=== PATIENT | male | born 1955 | race Caucasian/White ===

== ENCOUNTER 2023-03-31 11:08 | Emergency (ER) | payer MEDICARE, OTHER, SELFPAY ==
[2023-03-31 11:14] VITALS: BP 134/82; PULSE 68; RESP 16; TEMP 36.7; O2SAT 99; BMI 33.7
--- NOTE | 2023-03-31 11:40 | XR_ITS ---
The [address] [address] Patient Name: NORY DSOUZA MRN: [id number] date: 1955 Sex: M Assigned Patient Location: ER Current Patient Location: ED.MAIN Accession/Order Number: [id number] Exam Date: 03/31/2023 11:37 Report Date: 03/31/2023 12:28 At the request of: JORY DOWLING Procedure: XR hand RT min 3V PROCEDURE: XR hand RT min 3V COMPARISON: None. HISTORY: pain and swelling FINDINGS: BONES:No acute fracture or dislocation. Moderate degenerative changes with joint space narrowing and subchondral lytic changes most significant at the first and third metacarpal phalangeal joints. 5 mm lateral subluxation of the fourth middle phalanx. SOFT TISSUES:Diffuse soft tissue swelling most significant along the dorsal hand EFFUSION:None visible. OTHER: Negative. 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
--- NOTE | 2023-03-31 12:38 | ED_ITS ---
HPI - Extremity Problem General Chief complaint: Extremity Problem, Nontraumatic Stated complaint: RIGHT HAND PAIN Time Seen by Provider: 03/31/23 12:06 Source: patient Mode of arrival: walk-in Limitations: no limitations History of Present Illness HPI Narrative: Presenting with a right hand pain the patient is right-handed and he is using cane all the time he has been dealing with this hand pain for a while there was no history of fall or trauma Related Data Previous Rx's Medication Instructions Recorded famotidine 20 mg tablet (Pepcid) 20 mg PO BID #10 tabs 03/31/23 meloxicam 7.5 mg tablet 7.5 mg PO DAILY PRN pain #5 tabs 03/31/23 Allergies Allergy/AdvReac Type Severity Reaction Status Date / Time No Known Drug Allergies Allergy Verified 03/31/23 11:19 Review of Systems ROS Status of ROS 10 or more systems reviewed and unremarkable except as noted in history and below PFSH PFS Social History Smoking status: Current every day smoker Exam Narrative Exam Narrative: Nurses notes and vital signs reviewed and patient is not hypoxic. General: Well-appearing and in no apparent distress. Skin: Warm, dry, no pallor noted. No rash. Head: Normocephalic, atraumatic. Neck: Supple, non-tender. Eye: Pupils are equal, round and EOMI. No scleral icterus. Ears, Nose, Mouth, and Throat: TM are clear, no nasal mucosal hypertrophy. Oral mucosa is moist, no posterior oropharynx erythema, uvula is mid-line Cardiovascular: Regular Rate and Rhythm without murmur, gallop or rub. Respiratory: No accessory muscle use or respiratory distress. Lungs are clear to auscultation, no wheezing, rales or rhonchi Chest Wall: no tenderness Back: No midline thoracic or lumbar vertebral tenderness. No CVA tenderness Musculoskeletal: normal ROM, no calf or popliteal tenderness, the patient have right hand edema mostly in the fourth fifth metacarpals there is no open wounds and there is no signs of redness hotness or any signs of infection and no vascular injury GI: Abdomen is soft, non-distended. Normal bowel sounds. No masses appreciated. No tenderness to palpation. No rebound, guarding, or rigidity noted. Neurological: A&O x4. No cranial nerve dysfunction observed. No truncal at axia. Moves all extremities. Sensation intact. Psychiatric: Cooperative and interactive. Normal mood and affect. Constitutional Vital Signs, click to edit/add: Last Vital Signs Temp 98.1 F 03/31/23 11:14 Pulse 68 03/31/23 11:14 Resp 16 03/31/23 11:14 BP 134/82 03/31/23 11:14 Pulse Ox 99 03/31/23 11:14 O2 Del Method Room Air 03/31/23 11:14 Course Vital Signs Vital signs: Vital Signs Temperature 98.1 F 03/31/23 11:14 Pulse Rate 68 03/31/23 11:14 Respiratory Rate 16 03/31/23 11:14 Blood Pressure 134/82 03/31/23 11:14 Pulse Oximetry 99 03/31/23 11:14 Oxygen Delivery Method Room Air 03/31/23 11:14 Temperature 98.1 F 03/31/23 11:14 Pulse Rate 68 03/31/23 11:14 Respiratory Rate 16 03/31/23 11:14 Blood Pressure 134/82 03/31/23 11:14 Pulse Oximetry 99 03/31/23 11:14 Oxygen Delivery Method Room Air 03/31/23 11:14 MDM - Extremity (Nontraumatic) MDM Narrative Medical decision making narrative: X-ray of the patient hand shows a the above-mentioned results of arthritis with some lytic lesions the patient was referred to orthopedic as outpatient Jayesh wrap was applied he was instructed about follow-up and the fact that he would have to rest his hand using the cane with the left hand and also he was started Mobic only for 5 days the patient take Decadron at home chronically due to adrenal insufficiency The patient also was provided with Pepcid to help protection against GERD The patient is to follow up with primary care physician in next 2-3 days or to return to the emergency department should any of the signs or symptoms worsen or new symptoms develop. The patient agrees with the following Diagnosis and Treatment plan and the patient will be discharged home. Discharge Plan Discharge Chief Complaint: Extremity Problem, Nontraumatic Clinical Impression: Arthritis of hand Patient Disposition: Home, Self-Care Time of Disposition Decision: 12:38 Condition: Good Mode of Transportation: Private Vehicle Prescriptions / Home Meds: New meloxicam 7.5 mg tablet 7.5 mg PO DAILY PRN (Reason: pain ) Qty: 5 0RF famotidine [Pepcid] 20 mg tablet 20 mg PO BID Qty: 10 0RF Instructions: Arthritis (ED) Stand Alone Forms: Portal Instructions Referrals: DOUG AMBROSE [Primary Care Provider] - 1 week Jamie Castro MD [Physician] - 1 week Discharge Date/Time: 03/31/23 12:53
== END 2023-03-31 12:53 | disposition home or self-care (01) ==
PROVIDERS: Emergency Provider Emergency Medicine; PCP Family Medicine
DX: M19.041 Primary osteoarthritis, right hand (principal); F17.210 Nicotine dependence, cigarettes, uncomplicated
CPT/HCPCS: 73130; 99283

== ENCOUNTER 2024-05-01 07:50 | Outpatient (OUT) | payer MEDICARE, OTHER, SELFPAY ==
--- OUTSIDE RECORDS SUMMARY | 2024-05-01 08:14 | XMS_ITS | CCD ---
Author Organization [facility] Care Team Providers Care Surgical Services Asst Name Role Phone Doug Arteaga Primary Care Provider [phone] DOUG ARTEAGA Primary Care Physician [phone] Doug Arteaga MD. Primary Care Provider [phone] LIZZIE Manzo, DR DASILVA Attending Unavailable HAY ., DR DASILVA Consulting Unavailable HAY ., DR DASILVA Admitting Unavailable MISC, DR COOPER Primary Care Unavailable MISC, DR COOPER Primary Care Unavailable YOVANI ARTEAGA Attending Unavailable YOVANI ARTEAGA Consulting Unavailable YOVANI ARTEAGA Admitting Unavailable LIZZIE Manzo, DR DASILVA Attending Unavailable LIZZIE ., DR DASILVA Consulting Unavailable LIZZIE ., DR DASILVA Admitting Unavailable MISC, DR COOPER Primary Care Unavailable Grant Vazquez Attending Unavailable Alec Fountain Attending Unavailable Raul Vanessa Admitting Unavailable Raul Vanessa Referring Unavailable Raul Vanessa Attending Unavailable Alec Fountain Attending Unavailable Robson Cartwright Attending Unavailable SIOMARA BAEZA Attending Unavailabl e DOUG ARTEAGA Referring Unavailable SIOMARA BAEZA Referring Unavailabl Doug Oviedo MD Primary Care Provider DOUG ARTEAGA Attending Unavailable OMISESHOFELY BAKERCY L Referring Unavailable VERHOFF, DOUG L Primary Care Unavailable VERHOFF, DOUG L Referring Unavailable VERHOFF, DOUG Blackwood Primary Care Unavailable VERHOFF, DOUG L Primary Care Unavailable VERHOFF, DOUG L Referring Unavailable VERHOFFFELYCY L Attending Unavailable VERHOFF, DOUG L Primary Care Unavailable VERHOFF, DOUG L Referring Unavailable VERHOFF, DOUG L Primary Care Unavailable VERHOFF, DOUG L Referring Unavailable VERHOFF, DOGU L Primary Care Unavailable VERHOFF, DOUG L Referring Unavailable VERHOFF, DOUG L Referring Unavailable VERHOFF, DOUG L Primary Care Unavailable VERHOFF, DOUG L Attending Unavailable VERHOFF, DOUG L Referring Unavailable VERHOFF, DOUG L Primary Care Unavailable VERHOFF, DOUG L Primary Care Unavailable VERHOFF, DOUG L Referring Unavailable VERHOFF, DOUG L Attending Unavailable VERHOFF, DOUG L Attending Unavailable VERHOFF, DOUG L Referring Unavailable VERHOFF, DOUG L Primary Care Unavailable Medications Current Medications Medication Drug Class(es) Dates Sig (Normalized) Sig (Original) amLODIPine 2.5 mg oral tablet (13 sources) Dihydropyridine Calcium Channel Phyllis Start: 08-30-2021 amLODIPine 2.5 mg Tab Refills(s) 0 Start Date: 08/30/21 Status: Ordered Start: 12-11-2020 take 1 tablet by yves th once daily amLODIPine (NORVASC) 2.5 MG tablet take 1 tablet by mouth once daily 30 tablet 11 12/11/2020 Active Start: 12-27-2019 take 1 tablet by yves th once daily amLODIPine (NORVASC) 2.5 MG tablet Take 1 tablet by mouth daily 30 tablet 11 12/27/2019 Active aspirin 81 mg oral tablet (18 sources) Platelet Aggregation Inhibitor, Nonsteroidal Anti-inflammatory Drug Start: 02-20-2010 take 1 tablet by mouth once daily aspirin 81 mg oral tablet = 1 tab(s), Oral, Daily, # 30 tab(s), Refills(s) 0 Start Date: 02/20/10 Status: Ordered take 1 tablet by mouth once kunal y aspirin 81 MG EC tablet Take 81 mg by mouth daily. 0 Active atorvastatin 10 mg oral tablet (9 sources) HMG-CoA Reductase Inhibitor Start: 02-20-2010 atorvastatin (LIPITO R) 10 MG tablet Take by mouth 0 02/20/2010 Active calcium (as citrate)-vitamin D 500 mg-200 intl units oral tablet, chewable (6 sources) Start: 02-20-2010 calcium (as citrate)-vitamin D 500 mg-200 intl units oral tablet, chewable 500MG/400MG, Oral, Daily, Refill(s) 0 Start Date: 02/20/10 Status: Ordered Start: 02-20-2010 calcium (as ci trate)-vitamin D 500 mg-200 intl units oral tablet, chewable 500MG/400MG, Oral, Daily, 0 Start Date: 02/20/10 Status: Ordered cephalexin 500 mg oral capsule (1 source) Cephalosporin Antibacterial Start: 11-27-2022 End: 12-04-2022 take 1 capsule by mouth twice daily Keflex 500 mg Cap 500 mg = 1 cap(s), Oral, BID, X 7 day(s), # 14 cap(s), Refills(s) 0, Pharmacy: [facility] #[id number], 170, cm, 11/27/22 16:29:00 EDT, Height/Length Dosing, 92.4, kg, 11/27/22 16:29:00 EDT, Weight Dosing Start Date: 11/27/22 Stop Date: 12/04/22 Status: Ordered ciprofloxacin 500 mg oral tablet (7 sources) Quinolone Antimicrobial Start: 05-08-2019 take 1 mg by mouth every twelve hours Cipro 500 mg Tab mg tab(s), Oral, q12hr, Refills(s) 0 Start Date: 05/08/19 Status: Ordered Start: 05-02-2019 End: 05-09-2019 take 1 tablet by mouth twice daily ciprofloxacin (CIPRO) 500 MG tablet Take 1 tablet by mouth 2 times daily for 7 days 14 tablet 0 05/02/2019 05/09/2019 Active clotrimazole 10 mg oral lozenge (4 sources) Azole Antifungal take 1 tablet by mouth five times daily clotrimazole (MYCELEX) 10 MG eliseo Take 1 tablet by mouth 5 times daily Active dexamethasone 0.5 mg oral tablet (20 sources) Corticosteroid Start: take 1 tablet by mouth once daily dexAMETHasone (DECADRON) 0.5 MG tablet Indications: Adrenal insufficiency (HCC) Take 1 tablet by mouth daily 90 tablet 1 12/15/2023 Active Start: 09-09-2023 take 1 tablet by yves th once daily dexAMETHasone (DECADRON) 0.5 MG tablet Indications: Adrenal insufficiency (HCC) take 1 tablet by mouth once daily 90 tablet 1 09/09/2023 Active Start: 02-20-2010 take 1 tablet by yves th once daily dexamethasone 0.5 mg oral tablet 0.5 mg = 1 tab(s), Oral, Daily, Refills(s) 0 Start Date: 02/20/10 Status: Ordered 24 hr dilTIAZem hydrochloride 120 mg extended release oral capsule (4 sources) Calcium Channel Phyllis Start: 12-15-2023 take 1 capsule by mouth once daily dilTIAZem (CARDIZEM CD) 120 MG extended release capsule Take 1 capsule by mouth daily 90 capsule 3 12/15/2023 Active Start: 02-07-2023 take 1 capsule by mo uth once daily dilTIAZem (CARDIZEM CD) 120 MG extended release capsule Take 1 capsule by mouth daily 90 capsule 3 02/07/2023 Active furosemide 20 mg oral tablet (3 sources) Loop Diuretic Start: 06-29-2023 take 1 tablet by mouth once daily furosemide (LASIX) 20 MG tablet Take 1 tablet by mouth daily 3 tablet 0 06/29/2023 Active lansoprazole 30 mg delayed release oral capsule (20 sources) Proton Pump Inhibitor Start: 02-20-2010 take 1 capsule by mouth once daily, then take 1 capsule by mouth once daily Prevacid 30 mg Cap-EC = 1 cap(s), Oral, Daily, Take one capsule by mouth every day, # 14 cap(s), Refills(s) 0 Start Date: 02/20/10 Status: Ordered metoprolol tartrate 25 mg oral tablet (20 sources) beta-Adrenergic Phyllis Start: 12-15-2023 take 1 tablet by mouth twice daily metoprolol tartrate (LOPRESSOR) 25 MG tablet Take 1 tablet by mouth 2 times daily 360 tablet 1 12/15/2023 Active Start: 10-12-2023 [facility] metop[facility]ol tartrate (LOPRESSOR) 25 MG tablet Take 1 tablet by mouth 2 times daily 360 tablet 1 10/12/2023 Active Start: 11-27-2022 Metoprolol tar trate 25 mg Tab See Instructions, 2 tabs in the morning and evening and 1 tab in the afternoon, # 20 tab(s), Refills(s) 0, [facility]: [id number], 170, cm, 11/27/22 16:29:00 EDT, Height/Length Dosing, 92.4, kg, 11/27/22 16:29:00 EDT, Weight Dosing Start Date: 11/27/22 Status: Ordered Start: 11-27-2022 End: 11-27-2022 Metoprolol tartrate 25 mg Ta b 25 mg = 1 tab(s), Tab, Oral, STAT, Start date 11/27/22 17:25:00 EDT, 11/27/22 17:25:00 EDT Start Date: 11/27/22 Stop Date: 11/27/22 Status: Completed Start: 05-15-2022 End: 05-16-2022 take 1 tablet by mouth once Metoprolol tartrate 25 mg Tab 25 mg = 1 tab(s), Tab, Oral, Once, Stop date 05/15/22 23:31:00 EST, STAT, Start date 05/15/22 23:31:00 EST, 05/15/22 23:31:00 EST Start Date: 05/15/22 Stop Date: 05/16/22 Status: Completed Start: 05-15-2022 End: 05-15-2022 metoprolol 25 mg ER Tab 25 m g = 1 tab(s), Tab-ER, Oral, STAT, Start date 05/15/22 21:40:00 EST, 05/15/22 21:40:00 EST Start Date: 05/15/22 Stop Date: 05/15/22 Status: Completed Start: 09-01-2021 End: 09-01-2021 Metoprolol tartrate 25 mg Ta b 25 mg = 1 tab(s), Tab, Oral, Start date 09/01/21 14:00:00 EDT, 08/30/21 19:31:00 EDT Start Date: 09/01/21 Stop Date: 09/01/21 Status: Completed Start: 09-01-2021 End: 09-01-2021 take 1 tablet by mouth four times daily Lopressor 25 mg oral tablet 25 mg = 1 tab(s), Oral, QID, # 120 tab(s), Refills(s) 0, Pharmacy: [place] [id number] [address] [facility], 170, cm, 08/30/21 1:31:00 EDT, Height/Length Dosing, 93, kg, 08/30/21 1:31:00 EDT, Weight Dosing Start Date: 09/01/21 Status: Ordered Start: 02-09-2021 take 1 tablet by yves four times daily metoprolol tartrate (LOPRESSOR) 25 MG tablet take 1 tablet by mouth four times a day 360 tablet 1 02/09/2021 Active Start: 02-25-2020 take 1 tablet by yves th four times daily metoprolol tartrate (LOPRESSOR) 25 MG tablet Take 1 tablet by mouth 4 times daily 360 tablet 1 02/25/2020 Active Start: 01-14-2020 metoprolol tar trate (LOPRESSOR) 25 MG tablet Take 2 tablets twice daily 270 tablet 1 01/14/2020 Active Start: 08-24-2019 End: 01-14-2020 take 1 tablet by mouth three times daily metoprolol tartrate (LOPRESSOR) 25 MG tablet take 1 tablet by mouth three times a day 270 tablet 1 08/24/2019 01/14/2020 Discontinued (REORDER) Start: 02-27-2019 take 1 tablet by yves th three times daily metoprolol tartrate (LOPRESSOR) 25 MG tablet take 1 tablet by mouth three times a day 270 tablet 1 02/27/2019 Active Start: 04-30-2016 End: 04-30-2017 take 1 tablet by mouth twice daily metoprolol tartrate (LOPRESSOR) 50 MG tablet Take 1 tablet (50 mg total) by mouth 2 (two) times a day. 180 tablet 3 04/30/2016 04/30/2017 One A Day Men 50 Plus (6 sources) Start: 02-20-2010 take 1 tablet by mouth once daily One A Day Men 50 Plus 1 TAB, Oral, Daily, Refill(s) 0 Start Date: 02/20/10 Status: Ordered Start: 02-20-2010 One A Day Men 50 Plus 1 TAB, Oral, Daily, 0 Start Date: 02/20/10 Status: Ordered pravastatin sodium 40 mg oral tablet (20 sources) HMG-CoA Reductase Inhibitor Start: 12-15-2023 take 1 tablet by mouth once daily pravastatin (PRAVACHOL) 40 MG tablet Take 1 tablet by mouth daily 90 tablet 1 12/15/2023 Active Start: 08-01-2023 take 1 tablet by yves th once daily pravastatin (PRAVACHOL) 40 MG tablet take 1 tablet by mouth once daily 90 tablet 1 08/01/2023 Active Start: 05-17-2016 take 1 tablet by yves th at bedtime pravastatin 40 mg Tab 40 mg = 1 tab(s), Oral, Bedtime, Refills(s) 0 Start Date: 08/30/21 Status: Ordered Prevacid 30 mg Cap-EC (1 source) Start: 02-20-2010 take 1 capsule by mouth once daily, then take 1 capsule by mouth once daily Prevacid 30 mg Cap-EC = 1 cap(s), Oral, Daily, Take one capsule by mouth every day, # 14 cap(s), Refills(s) 0 Start Date: 02/20/10 Status: Ordered triamcinolone acetonide 0.001 mg/mg topical ointment (19 sources) Corticosteroid Start: 02-25-2020 triamcinolone (KENALOG) 0.1 % ointment Apply topically to affected area(s) twice daily until healed/improved. 30 g 0 02/25/2020 Active Start: 06-05-2019 triamcinolone (KENALOG) 0.1 % ointment Apply topically to affected area(s) twice daily until healed/improved. 30 g 0 06/05/2019 Active Start: 06-08-2018 triamcinolone (KENALOG) 0.1 % ointment Apply topically to affected area(s) twice daily until healed/improved. 30 g 0 06/08/2018 Active Completed/Discontinued Medications Medication Drug Class(es) Dates Sig (Normalized) Sig (Original) esomeprazole 40 mg delayed release oral capsule (1 source) Proton Pump Inhibitor Start: 03-24-2015 End: 04-04-2019 esomeprazole (NEXIUM) 40 MG capsule TAKE 1 CAPSULE EVERY MORNING BEFORE BREAKFAST 90 capsule 0 03/24/2015 04/04/2019 Discontinued (LIST CLEANUP) iopamidol (ISOVUE-370) 76 % injection 100 mL (1 source) Start: 06-02-2020 End: 06-02-2020 iopamidol (ISOVUE-370) 76 % injection 100 mL 24 hr isosorbide mononitrate 30 mg extended release oral tablet (4 sources) Nitrate Vasodilator Start: 12-03-2019 End: 01-14-2020 take 1 tablet by mouth once daily isosorbide mononitrate (IMDUR) 30 MG extended release tablet Take 1 tablet by mouth daily 90 tablet 3 12/03/2019 01/14/2020 Discontinued (Therapy completed) Start: 11-19-2019 take 1 tablet by yves once daily isosorbide mononitrate (IMDUR) 30 MG extended release tablet Take 1 tablet by mouth daily 30 tablet 0 11/19/2019 Active technetium sestamibi (CARDIOLITE) injection 10 millicurie (1 source) Start: 05-01-2019 End: 05-01-2019 technetium sestamibi (CARDIOLITE) injection 10 millicurie technetium sestamibi (CARDIOLITE) injection 30 millicurie (1 source) Start: 05-01-2019 End: 05-01-2019 technetium sestamibi (CARDIOLITE) injection 30 millicurie Problems Active Problems Problem Classification Problem Date Documented Date Episodic/Chronic Abdominal hernia (7 sources) Diaphragmatic hernia; Translations: [Diaphragmatic hernia without obstruction or gangrene] Onset: 08-30-2021 Episodic Blindness and vision defects (1 source) Diplopia; Translations: [Diplopia] Episodic Cardiac dysrhythmias (8 sources) Supraventricular tachycardia; Translations: [Supraventricular tachycardia] Onset: 08-31-2021 Chronic Coagulation and hemorrhagic disorders (5 sources) Thrombocytopenic disorder; Translations: [Thrombocytopenia, unspecified] Onset: 08-30-2021 Resolved: 05-02-2023 Chronic Coronary atherosclerosis and other heart disease (2 sources) Coronary arteriosclerosis; Translations: [Atherosclerotic heart disease of [place] coronary artery without angina pectoris] Onset: 09-24-2015 08-01-2021 Chronic Disorders of lipid metabolism (20 sources) Hypercholesterolemia; Translations: [Pure hypercholesterolemia, unspecified] Onset: 04-30-2016 12-07-2016 Chronic Esophageal disorders (20 sources) Gastroesophageal reflux disease without esophagitis; Translations: [Gastro-esophageal reflux disease without esophagitis] Onset: 03-19-2016 03-19-2016 Chronic Essential hypertension (20 sources) Hypertensive disorder; Translations: [Essential hypertension] Onset: 03-19-2013 03-19-2013 Chronic Fluid and electrolyte disorders (8 sources) Hypo-osmolality and or hyponatremia; Translations: [Hypo-osmolality and hyponatremia] Onset: 08-30-2021 Episodic Genitourinary symptoms and ill-defined conditions (6 sources) Post-micturition incontinence 05-08-2019 Chronic Genitourinary symptoms and ill-defined conditions (13 sources) Scalding pain on urination ; Translations: [Increased frequency of urination] 05-08-2019 Episodic Headache; including migraine (1 source) Headache; Translations: [Nonintractable episodic headache, unspecified headache type] Episodic Hyperplasia of prostate (6 sources) Benign prostatic hypertrophy with outflow obstruction 05-03-2019 Chronic Nonspecific chest pain (1 source) Chest pain; Translations: [Chest pain, unspecified] Onset: 05-15-2022 Episodic Other ear and sense organ disorders (3 sources) Unspecified hearing loss, right ear; Translations: [UNSPECIFIED HEARING LOSS RIGHT EAR] Onset: 02-11-2022 Chronic Other endocrine disorders (20 sources) Hypoadrenalism; Translations: [Unspecified adrenocortical insufficiency] Onset: 03-19-2013 03-19-2013 Chronic Other endocrine disorders (7 sources) Congenital adrenal hyperplasia; Translations: [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] Onset: 08-30-2021 Chronic Other lower respiratory disease (1 source) Shortness of breath; Translations: [Shortness of breath] Onset: 03-23-2024 Episodic Other nervous system disorders (1 source) Paresthesia of skin; Translations: [Arm paresthesia, right] Episodic Other non-epithelial cancer of skin (1 source) Squamous cell carcinoma of upper extremity; Translations: [Squamous cell cancer of skin of forearm, left] Chronic Other non-traumatic joint disorders (1 source) Pain in unspecified knee; Translations: [Pain of joint of knee] Onset: 04-21-2023 Episodic Other nutritional; endocrine; and metabolic disorders (1 source) Obesity; Translations: [Obesity, unspecified] Onset: 08-30-2021 Chronic Other skin disorders (6 sources) Actinic keratosis 05-03-2019 Episodic Residual codes; unclassified (1 source) Obstructive sleep apnea syndrome; Translations: [Obstructive sleep apnea (adult) (pediatric)] Onset: 08-30-2021 Chronic Residual codes; unclassified (1 source) Daytime somnolence; Translations: [Other hypersomnia] 10-17-2023 Chronic Residual codes; unclassified (1 source) Sleep apnea; Translations: [Other sleep apnea] 10-17-2023 Chronic Residual codes; unclassified (1 source) Other hypersomnia; Translations: [Other hypersomnia] Onset: 10-17-2023 Chronic Residual codes; unclassified (1 source) Other sleep apnea; Translations: [Other sleep apnea] Onset: 10-17-2023 Chronic Residual codes; unclassified (6 sources) Family history of prostate cancer 05-08-2019 Episodic Residual codes; unclassified (6 sources) H/O: anticoagulant therapy 05-03-2019 Episodic Residual codes; unclassified (1 source) Edema of left lower limb; Translations: [Localized edema] 03-23-2024 Episodic Residual codes; unclassified (1 source) Localized edema; Translations: [Localized edema] Onset: 03-23-2024 Episodic Skin and subcutaneous tissue infections (1 source) Cellulitis of left lower limb; Translations: [Cellulitis of left lower limb] Onset: 03-23-2024 Episodic Substance-related disorders (7 sources) Smoker; Translations: [Nicotine dependence, cigarettes, uncomplicated] Onset: 06-28-2022 05-08-2019 Chronic Urinary tract infections (7 sources) Urinary tract infectious disease; Translations: [Urinary tract infection, site not specified] Onset: 11-27-2022 05-08-2019 Episodic Past or Other Problems Problem Classification Problem Date Documented Da te Episodic/Chronic Cancer of prostate (6 sources) History of malignant neoplasm of prostate Resolved: 05-03-2019 05-03-2019 Episodic Cardiac dysrhythmias (11 sources) Tachycardia; Translations: [Palpitations] Onset: 09-24-2015 Episodic Conditions associated with dizziness or vertigo (4 sources) Dizziness and giddiness; Translations: [DIZZINESS AND GIDDINESS] Onset: 06-26-2022 Episodic Malaise and fatigue (2 sources) Other fatigue; Translations: [Other fatigue] Onset: 06-28-2023 Episodic Other aftercare (1 source) Other residential (current) drug therapy; Translations: [OTH NURSE MIDWIFE/CLINICAL INSTRUCTOR CURRENT DRUG THERAPY] Onset: 06-28-2022 Episodic Other aftercare (1 source) nursing home (current) use of aspirin; Translations: [[facility] CURRENT USE OF ASPIRIN] Onset: 02-13-2022 Episodic Other connective tissue disease (1 source) Other specified soft tissue disorders; Translations: [Other specified soft tissue disorders] Onset: 11-16-2023 Episodic Other connective tissue disease (1 source) Pain in right leg; Translations: [Pain in right leg] Onset: 05-12-2023 Episodic Other ear and sense organ disorders (1 source) Impacted cerumen, bilateral; Translations: [IMPACTED CERUMEN BILATERAL] Onset: 02-13-2022 Episodic Other non-epithelial cancer of skin (5 sources) Squamous cell carcinoma of skin; Translations: [Squamous cell carcinoma of skin, unspecified] Onset: 03-05-2021 03-05-2021 Episodic Other screening for suspected conditions (not mental disorders or infectious disease) (10 sources) Patient encounter status; Translations: [Encounter for screening for malignant neoplasm of prostate] Onset: 11-02-2023 Episodic Other skin disorders (1 source) Disorder of skin of upper limb; Translations: [Skin lesion of left arm] Episodic Residual codes; unclassified (2 sources) Harmful pattern of use of nicotine; Translations: [Tobacco use] Onset: 09-24-2015 09-24-2015 Episodic Screening and history of mental health and substance abuse codes (2 sources) Tobacco use and exposure - finding; Translations: [Personal history of nicotine dependence] Onset: 11-02-2023 11-02-2023 Episodic Unclassified (8 sources) Onset: 04-16-2020 Resolved: 10-28-2022 10-28-2022 Results Test Name Value Interpretation Reference Range Facility Brain Natri. Peptideon 03-23 Natriuretic peptide B (Bld) [Mass/Vol] 143 pg/mL Normal <300 [facility] Comment on above: Result Comment: An age-independent cutoff point of 300 pg/ml has a 98% negative predictive value excluding acute heart failure. Performed By: #### B CERTIFIED HYPERBARIC TECHNOLOGIST #### [facility] [address] [place] [address] Tile Mechanic Helper: Juanjose Osorio MD Vascular duplex lower extrem ity venous lefton 03-23-2024 Left lower extremity edema without DVT. [facility] RIS CONSOLIDATED EXAM: VAS DUP LOWER EXTREMITY VENOUS LEFT HISTORY: Edema left calf COMPARISON: None. TECHNIQUE: Real-time, color and spectral Doppler. Compression and augmentation. FINDINGS: Prominent edema left lower extremity without deep vein thrombosis from the left inguinal region through the deep vessels of the thigh, popliteal region, and calf. The opposite right groin was negative. Right Lower Venous Right groin scanned for comparison appears normal. Left Lower Venous No evidence of deep vein and superficial thrombosis in the left lower extremity. Visible lymph node left groin. Upper and lower leg edema/cellulitis Interior Assemblies Installer Details A raza scale, color Doppler imaging and spectral Doppler analysis ultrasound was performed. During the study longitudinal and transverse views were obtained. Pulsed wave doppler was performed. [facility] Sajan Marquez Jr., MD - 03/23/2024 EXAM: VAS DUP LOWER EXTREMITY VENOUS LEFT HISTORY: Edema left calf COMPARISON: None. TECHNIQUE: Real-time, color and spectral Doppler. Compression and augmentation. FINDINGS: Prominent edema left lower extremity without deep vein thrombosis from the left inguinal region through the deep vessels of the thigh, popliteal region, and calf. The opposite right groin was negative. IMPRESSION: Left lower extremity edema without DVT. [facility] Radiology Study observation (narrative) [facility] Vascular duplex lower extrem ity venous leftOrdered By: Sajan Sanchez on 03-23-2024 [facility] Work Phone: Basic Metabolic Profon 11-15 Anion gap [Moles/Vol] 6 mmol/L Low 9-17 [facility] Comment on above: Performed By: #### B MP #### [facility] [address] [place] [address] Tile Mechanic Helper: Juanjose Osorio MD BUN/CRE Ratio 18 Normal 9-20 [facility] Comment on above: Performed By: #### B MP #### [facility] [address] [place] [address] Tile Mechanic Helper: Juanjose Osorio MD Calcium [Mass/Vol] 9.3 mg/dL Normal 8.6-10.4 [facility] Comment on above: Performed By: #### B MP #### [facility] [address] [place] [address] Tile Mechanic Helper: Juanjose Osorio MD Chloride [Moles/Vol] 103 mmol/L Normal 98-107 [facility] Comment on above: Performed By: #### B MP #### [facility] [address] [place] [address] Tile Mechanic Helper: Juanjose Osorio MD CO2 [Moles/Vol] 30 mmol/L Normal 20-31 [facility] Comment on above: Performed By: #### B MP #### [facility] [address] [place], [place] [id number] Tile Mechanic Helper: Juanjose Osorio MD Creatinine [Mass/Vol] 0.9 mg/dL Normal 0.7-1.2 [facility] Comment on above: Performed By: #### B MP #### [facility] [address] [place], [place] [id number] Tile Mechanic Helper: Juanjose Osorio MD GFR/1.73 sq M.predicted among non-blacks MDRD (S/P/Bld) [Vol rate/Area] mL/min/{1.73_m2} Normal >60 [facility] Comment on above: Result Comment: These results are not intended for use in patients <18 years of age. eGFR results are calculated without a race factor using the 2020 CKD-EPI equation. Careful clinical correlation is recommended, particularly when comparing to results calculated using previous equations. The CKD-EPI equation is less accurate in patients with extremes of muscle mass, extra-renal metabolism of creatine, excessive creatine ingestion, or following therapy that affects renal tubular secretion. Performed By: #### B MP #### [facility] [address] [place], [place] [id number] Tile Mechanic Helper: Juanjose Osorio MD Glucose [Mass/Vol] 88 mg/dL Normal 70-99 [facility] Comment on above: Performed By: #### B MP #### [facility] [address] [place] [address] Tile Mechanic Helper: Juanjose Osorio MD Potassium [Moles/Vol] 4.2 mmol/L Normal 3.7-5.3 [facility] Comment on above: Performed By: #### B MP #### [facility] [address], [place] [id number] Tile Mechanic Helper: Juanjose Osorio MD Sodium [Moles/Vol] 139 mmol/L Normal 135-144 [facility] Comment on above: Performed By: #### B MP #### [facility] [address] [place] [address] Tile Mechanic Helper: Juanjose Osorio MD Urea nitrogen [Mass/Vol] 16 mg/dL Normal 8-23 [facility] Comment on above: Performed By: #### B MP #### [facility] [address] [place] [address] Tile Mechanic Helper: Juanjose Osorio MD PSA, Screeningon 11-16-2023 Prostatic Spec. Ag 1.10 ng/mL Normal 0.00-4.00 [facility] Comment on above: Result Comment: The Apollo ECLIA assay is used. Results obtained with different assay methods cannot be used interchangeably. Performed By: #### P SAS #### [id number] [place] [address] Tile Mechanic Helper: Sudhir Cheng MD CT Chest for screeningon Lung RADS 1, negative. Management: Low-dose CT chest one year. [facility] CONSOLID[facility] EXAM: CT LUNG SCREENING (INITIAL/ANNUAL) INDICATION: Personal history of tobacco use, COMPARISON: CT abdomen and pelvis 07/12/2014. TECHNIQUE: Low-dose axial CT imaging obtained through the chest for the purposes of lung cancer screening. Axial images and multiplanar reformatted images reviewed. Individualized dose optimization technique was used in order to meet ALARA standards for radiation dose reduction. In addition to vendor specific dose reduction algorithms, the dose reduction techniques vary based on the specific scanner utilized but frequently include automated exposure control, adjustment of the mA and/or kV according to patient size, and use of iterative reconstruction technique. FINDINGS: Emphysema without lung nodule. Moderate plaque aorta, without aneurysm. Fundus of the stomach contained within a moderate-sized hiatal hernia, unchanged. 3.7 cm left adrenal adenoma unchanged. Interval linear scar or atelectasis, mild, in the lingula. CORONARY ARTERIES: Coronary calcifications are moderate. [facility] Radiology Study observation (narrative) [facility] CT Chest for screeningOrdere d By: Sajan Sanchez on 11-02-2023 [facility] Work Phone: CT LUNG SCREENING (INITIAL/A NNUAL)on 11-02-2023 CT LUNG SCREENING (INITIAL/ANNUAL) EXAM: CT LUNG SCREENING (INITIAL/ANNUAL) INDICATION: Personal history of tobacco use, COMPARISON: CT abdomen and pelvis 07/12/2014. TECHNIQUE: Low-dose axial CT imaging obtained through the chest for the purposes of lung cancer screening. Axial images and multiplanar reformatted images reviewed. Individualized dose optimization technique was used in order to meet ALARA standards for radiation dose reduction. In addition to vendor specific dose reduction algorithms, the dose reduction techniques vary based on the specific scanner utilized but frequently include automated exposure control, adjustment of the mA and/or kV according to patient size, and use of iterative reconstruction technique. FINDINGS: Emphysema without lung nodule. Moderate plaque aorta, without aneurysm. Fundus of the stomach contained within a moderate-sized hiatal hernia, unchanged. 3.7 cm left adrenal adenoma unchanged. Interval linear scar or atelectasis, mild, in the lingula. CORONARY ARTERIES: Coronary calcifications are moderate. IMPRESSION: Lung RADS 1, negative. Management: Low-dose CT chest one year. Interpreted by: Sajan Sanchez Jr., MD Signed by: Sajan Sanchez Jr., MD 11/02/23 Final result Normal [facility] Vascular AAA screeningon FINDINGS/IMPRESSION: 1. Greatest transverse diameter of the aorta is 2.4 cm. 2. The iliac arteries are normal at 1.2 cm on the right and 1.2 cm on the left. 3. Occasional plaque is identified. 4. No abdominal aortic aneurysm. [facility] CONSOLIDATED EXAM: VAS AAA SCREENING HISTORY: Screening for AAA COMPARISON: 07/12/2014 CT abdomen and pelvis. [facility] Sajan Sanchez Jr., MD - 11/02/2023 EXAM: VAS AAA SCREENING HISTORY: Screening for AAA COMPARISON: 07/12/2014 CT abdomen and pelvis. IMPRESSION: FINDINGS/IMPRESSION: 1. Greatest transverse diameter of the aorta is 2.4 cm. 2. The iliac arteries are normal at 1.2 cm on the right and 1.2 cm on the left. 3. Occasional plaque is identified. 4. No abdominal aortic aneurysm. [facility] Radiology Study observation (narrative) [facility] Vascular AAA screeningOrdere d By: Sajan Sanchez on 11-02-2023 [facility] Work Phone: Basic Metabolic Profon 06-28 Anion gap [Moles/Vol] 9 mmol/L Normal 9-17 [facility] Comment on above: Performed By: #### B MP #### [facility] [address] [place] [address] Tile Mechanic Helper: Juanjose Osorio MD BUN/CRE Ratio 23 High 9-20 [facility] Comment on above: Performed By: #### B MP #### [facility] [address] [place] [address] Tile Mechanic Helper: Juanjose Osorio MD Calcium [Mass/Vol] 8.7 mg/dL Normal 8.6-10.4 [facility] Comment on above: Performed By: #### B MP #### [facility] [address] [place] [address] Tile Mechanic Helper: Juanjose Osorio MD Chloride [Moles/Vol] 102 mmol/L Normal 98-107 [facility] Comment on above: Performed By: #### B MP #### [facility] [address] [place] [address] Tile Mechanic Helper: Juanjose Osorio MD CO2 [Moles/Vol] 26 mmol/L Normal 20-31 [facility] Comment on above: Performed By: #### B MP #### [facility] [address] [place] [address] Tile Mechanic Helper: Juanjose Osorio MD Creatinine [Mass/Vol] 0.7 mg/dL Normal 0.7-1.2 [facility] Comment on above: Performed By: #### B MP #### [facility] [address] [place] [address] Tile Mechanic Helper: Juanjose Osorio MD GFR/1.73 sq M.predicted among non-blacks MDRD (S/P/Bld) [Vol rate/Area] mL/min/{1.73_m2} Normal >60 [facility] Comment on above: Result Comment: These results are not intended for use in patients <18 years of age. eGFR results are calculated without a race factor using the 2020 CKD-EPI equation. Careful clinical correlation is recommended, particularly when comparing to results calculated using previous equations. The CKD-EPI equation is less accurate in patients with extremes of muscle mass, extra-renal metabolism of creatine, excessive creatine ingestion, or following therapy that affects renal tubular secretion. Performed By: #### B MP #### [facility] [address] [place] [address] Tile Mechanic Helper: Juanjose Osorio MD Glucose [Mass/Vol] 91 mg/dL Normal 70-99 [facility] Comment on above: Performed By: #### B MP #### [facility] [address] [place] [address] Tile Mechanic Helper: Juanjose Osorio MD Potassium [Moles/Vol] 4.4 mmol/L Normal 3.7-5.3 [facility] Comment on above: Performed By: #### B MP #### [facility] [address] [place] [address] Tile Mechanic Helper: Juanjose Osorio MD Sodium [Moles/Vol] 137 mmol/L Normal 135-144 [facility] Comment on above: Performed By: #### B MP #### [facility] [address] [place] [address] Tile Mechanic Helper: Juanjose Osorio MD Urea nitrogen [Mass/Vol] 16 mg/dL Normal 8-23 [facility] Comment on above: Performed By: #### B MP #### [facility] [address] [place] [address] Tile Mechanic Helper: Juanjose Osorio MD XR CHEST (2 VW)on 06-28-2023 XR CHEST (2 VW) EXAM: XR CHEST (2 VW) HISTORY: Leg swelling COMPARISON: None TECHNIQUE: 2 views FINDINGS: Hiatal hernia is noted. No focal infiltrate is seen. No acute findings. Degenerative changes are seen within the dorsal spine. IMPRESSION: Hiatal hernia. No acute findings. Interpreted by: Brittany Chester MD Signed by: Brittany Chester MD 06/28/23 Final result Normal [facility] LE Venous Duplex Righton 04-29-2023 US LE Venous Duplex Right Exam Date/Time: 04/28/2023 10:23 EST Reason for Exam: R22.41 Report IMPRESSION: NO EVIDENCE OF VENOUS THROMBOSIS INVOLVING VISUALIZED DEEP VEINS OF THE RIGHT LEG. CLINICAL HISTORY: R22.41 COMMENT: On the right, the greater saphenous vein, common femoral vein, deep femoral vein, femoral vein, and popliteal vein demonstrate spontaneous phasic venous flow, with augmentation, competence, non-pulsatility, and compressibility every 2 cm. The right posterior tibial and peroneal veins of the deep venous system compress. The contralateral left common femoral vein demonstrates spontaneous phasic venous flow. Edematous change is visualized posterior to the right knee. However, no discrete fluid collection or cyst is visualized. Ordering Provider: Raul Vanessa FINAL REPORT Dictated: 04/29/2023 12:30 pm Al Mark MD Signed (Electronic Signature): 04/29/2023 12:30 pm Signed by: Al Mark MD Transcribed by: BALDOMERO Technologist: Kike [facility] Consent for Treatmenton 04-01 Consent for Treatment [id number] #1.00TIFF Normal [facility] ED Note-Physicianon 04-22-20 ED Note-Physician Basic Information Time Seen: Raul Vanessa PA-C 04/21/2023 13:23 Chief Complaint pt to ER with c/o pain behind right knee with a rash around both knees that started this morning. rash. pt denies any pain on lower leg History of Present Illness 5-year-old male comes to the ED for evaluation of right knee pain. He states he noted some swelling behind his right knee today. He is concerned for possible DVT. No calf pain or tenderness. No weakness or paresthesias. He states he noted some redness to his knee, with is not a new finding today. No fever, chills, nausea, vomiting. No trauma. Review of Systems A 10 point review of systems is negative except as noted above. Medical and Surgical History: Reviewed and noted Social history: Lives at home Tobacco: Denies Physical Exam Vitals & Measurements T: 36.7 ?C(Oral) HR: 68(Peripheral) RR: 18 BP: 140/74 SpO2: 97% HT: 170 cm WT: 100.2 kg BMI: 34.67 Nurses notes and vital signs reviewed and patient is not hypoxic. General: The patient appears well, resting comfortably. Skin: Warm, dry. Head: Atraumatic. Neck: No JVD. Eye: Normal conjunctiva. Ears, Nose, Mouth, and Throat: Moist mucous membranes. Cardiovascular: Strong distal pulses. Chest wall: Respiratory: Respirations are nonlabored. Back: Normal range of motion. Musculoskeletal: Dry erythematous rash over the patella surface of both knees suggestive of eczema. Nontender. No fluctuance or induration. There is tenderness to the right popliteal fossa without appreciable mass or lesion. Full range of motion of flexion extension. No calf tenderness. Strong distal pulses. Gastrointestinal: Urological: Neurological: Awake and alert. No focal deficits. Follows commands. Psychiatric: Cooperative. Medical Decision Making Patient presents with tenderness to the posterior aspect of the right knee. This likely represents a Virgen's cyst. He has no evidence of neurovascular compromise. He has no calf tenderness. Good distal pulses. Clinically DVT is less likely, however this is his concern. We do not have ultrasound available today on the holiday, he is set up for outpatient ultrasound. He does have a chronic rash of the patella surface of both knees. Not new today. No tenderness or evidence of infectious process. Patient was encouraged to return to the ED if symptoms worsen or change. Assessment/Plan Knee pain (M25.569: Pain in unspecified knee) Disposition Plan Patient Discharge Condition Disposition: Discharged home Condition: Improved and stable Counseled: Patient and/or family were counseled to workup, results, treatment plan and follow-up recommendations Discharge Prescription List Prescriptions No active prescription medications Follow-up With When Contact Information DOUG ARTEAGA In 3 days 04/24/[address] [place] [address]- [facility] (1) Additional Instructions: Patient Education Virgen Cyst Acute Pain, Adult Attestation Patient seen and evaluated by the physician executive chef assistant. Attending physician was present in the emergency department and supervised care. This visit was performed by both the physician and an APC. I performed all aspects of the MDM as documented. This report was transcribed using voice recognition software. Every effort was made to ensure accuracy, however, inadvertently computerized director of product design mistakes may be present. Appropriate healthcare PPE was used in evaluating this patient. The patient was placed in a mask. The healthcare provider was wearing mask, gloves, and utilizing proper hand hygiene. All equipment was properly cleansed. 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 Medications Inpatient No active inpatient medications Home amLODIPine 2.5 mg Tab aspirin 81 mg oral tablet, 1 tab(s), Oral, Daily, Not taking calcium (as citrate)-vitamin D 500 mg-200 intl units oral tablet, chewable, 500MG/400MG, Oral, Daily Cipro 500 mg Tab, Oral, q12hr dexamethasone 0.5 mg oral tablet, 0.5 mg= 1 tab(s), Oral, Daily Lipitor 10 mg oral tablet, 1 tab(s), Oral, Daily, Not taking Lopressor 25 mg oral tablet, 25 mg= 1 tab(s), Oral, QID Metoprolol tartrate 25 mg Tab, See Instructions One A Day Men 50 Plus, 1 TAB, Oral, Daily pravastatin 40 mg Tab, 40 mg= 1 tab(s), Oral, Bedtime Prevacid 30 mg Cap-EC, 1 cap(s), Oral, Daily Allergies No Known Allergies Social H (more content not included)... Normal [facility] Comment on above: Result Comment: Elec tronically Signed By: Rasheeda LEBLANC, Raul\.br\Date and Time Signed: 04/21/23 13:36 EST\.br\Electronically Co-Signed By: Robson Cartwright DO\.br\Date and Time Co-Signed: 04/22/23 07:59 EST Physician Orderon 04-22-2023 Physician Order [id number] #1.00TIFF Normal [facility] Consent for Treatmenton 03-31 Consent for Treatment [id number] #1.00TIFF Normal [facility] Discharge Instructionson Discharge Instructions [id number] #1.00TIFF Normal [facility] ED Clinical Summaryon 2022 ED Clinical Summary [place] [address] ED Clinical Summary Person Information Name: NORY DSOUZA [facility]arsha/[facility] Age: 68 Years : 1955 Sex: Male Language: Lebanese PCP: DOUG ARTEAGA MD Marital Status: Visit Id: Visit Reason: Rash; Knee pain-swelling; RT KNEE PAIN & RASH Speciality: Acuity: 4 Enc Type: Emergency Med Service: Emergency Arrival: 04/21/2023 13:13:43 Discharge: 04/21/2023 13:48:53 LOS: 000 00:35 Checkin: 04/21/2023 13:13:43 Checkout: 04/21/2023 13:48:53 Dispo Type: Home (Routine DC) EVENTS: Event Name Event Status Request Date/Time Start Date/Time Complete Date/Time Arrive Complete 04/21/2023 13:13:43 04/21/2023 13:13:43 04/21/2023 13:13:43 Document Home Meds Request 04/21/2023 13:13:43 Triage Complete 04/21/2023 13:13:43 04/21/2023 13:27:51 04/21/2023 13:27:51 Bed Assign Complete 04/21/2023 13:22:36 04/21/2023 13:22:36 04/21/2023 13:22:36 Dr Exam Complete 04/21/2023 13:22:36 04/21/2023 13:23:45 04/21/2023 13:23:45 RN Exam Complete 04/21/2023 13:22:36 04/21/2023 13:39:32 04/21/2023 13:39:32 Registration Complete 04/21/2023 13:23:45 04/21/2023 13:26:42 04/21/2023 13:26:42 Reg Complete Request 04/21/2023 13:26:42 Reg Bed Request Complete 04/21/2023 13:26:42 04/21/2023 13:26:42 04/21/2023 13:26:42 Dr Exam Complete 04/21/2023 13:26:53 04/21/2023 13:26:53 04/21/2023 13:26:53 Registration Request 04/21/2023 13:26:53 Discharge Complete 04/21/2023 13:30:57 04/21/2023 13:48:57 04/21/2023 13:48:57 Transfer Complete 04/21/2023 13:48:57 04/21/2023 13:48:57 04/21/2023 13:48:57 ADDRESS: [address] [place] [phone] PHYS DOC NOTES: MEDICAL INFORMATION: Prescriptions Given: Medications to Continue with No Changes Other Medications amlodipine (amLODIPine 2.5 mg Tab) aspirin (aspirin 81 mg oral tablet) 1 Tablets By Mouth every day. atorvastatin (Lipitor 10 mg oral tablet) 1 Tablets By Mouth every day. calcium-vitamin D (calcium (as citrate)-vitamin D 500 mg-200 intl units oral tablet, chewable) 500MG/400MG By Mouth every day. ciprofloxacin (Cipro 500 mg Tab) By Mouth every 12 hours. dexamethasone (dexamethasone 0.5 mg oral tablet) 1 Tablets By Mouth every day. lansoprazole (Prevacid 30 mg Cap-EC) 1 Capsules By Mouth every day. Take one capsule by mouth every day. metoprolol (Lopressor 25 mg oral tablet) 1 Tablets By Mouth 4 times a day. Refills: 0. metoprolol (Metoprolol tartrate 25 mg Tab) 2 tabs in the morning and evening and 1 tab in the afternoon. Refills: 0. multivitamin with minerals (One A Day Men 50 Plus) 1 TAB By Mouth every day. pravastatin (pravastatin 40 mg Tab) 1 Tablets By Mouth at bedtime. PATIENT EDUCATION INFORMATION: Instructions: Virgen Cyst; Acute Pain, Adult Follow up: With: Address: When: DOUG ARTEAGA [address] [place] [address] [place] [address] [employer] In 3 days 04/24/2023 DIAGNOSIS: Knee pain Normal [facility] ED Patient Education Noteon 04-21-2023 ED Patient Education Note Orthopedics Virgen Cyst A Virgen cyst, also called a popliteal cyst, is a growth that forms at the back of the knee. The cyst forms when the fluid-filled sac (bursa) that cushions the knee joint becomes enlarged. What are the causes? In most cases, a Virgen cyst results from another knee problem that causes swelling inside the knee. This makes the fluid inside the knee joint (synovial fluid) flow into the bursa behind the knee, causing the bursa to enlarge. What increases the risk? You may be more likely to develop a Virgen cyst if you already have a knee problem, such as: ? A tear in cartilage that cushions the knee joint (meniscal tear). ? A tear in the tissues that connect the bones of the knee joint (ligament tear). ? Knee swelling from osteoarthritis, rheumatoid arthritis, or gout. What are the signs or symptoms? The main symptom of this condition is a lump behind the knee. This may be the only symptom of the condition. The lump may be painful, especially when the knee is straightened. If the lump is painful, the pain may come and go. The knee may also be stiff. Symptoms may quickly get more severe if the cyst breaks open (ruptures). If the cyst ruptures, you may feel the following in your knee and calf: ? Sudden or worsening pain. ? Swelling. ? Bruising. ? Redness in the calf. A Virgen cyst does not always cause symptoms. How is this diagnosed? This condition may be diagnosed based on your symptoms and medical history. Your health care provider will also do a physical exam. This may include: ? Feeling the cyst to check whether it is tender. ? Checking your knee for signs of another knee condition that causes swelling. You may have imaging tests, such as: ? X-rays. ? MRI. ? Ultrasound. How is this treated? A Virgen cyst that is not painful may go away without treatment. If the cyst gets large or painful, it will likely get better if the underlying knee problem is treated. If needed, treatment for a Virgen cyst may include: ? Resting. ? Keeping weight off of the knee. This means not leaning on the knee to support your body weight. ? Taking NSAIDs, such as ibuprofen, to reduce pain and swelling. ? Having a procedure to drain the fluid from the cyst with a needle (aspiration). You may also get an injection of a medicine that reduces swelling (steroid). ? Having surgery. This may be needed if other treatments do not work. This usually involves correcting knee damage and removing the cyst. Follow these instructions at home: Activity ? Rest as told by your health care provider. ? Avoid activities that make pain or swelling worse. ? Return to your normal activities as told by your health care provider. Ask your health care provider what activities are safe for you. ? Do not use the injured limb to support your body weight until your health care provider says that you can. Use crutches as told by your health care provider. General instructions ? Take lqrg-nkw-imqvjmj and prescription medicines only as told by your health care provider. ? Keep all follow-up visits as told by your health care provider. This is important. Contact a health care provider if: ? You have knee pain, stiffness, or swelling that does not get better. Get help right away if: ? You have sudden or worsening pain and swelling in your calf area. Summary ? A Virgen cyst, also called a popliteal cyst, is a growth that forms at the back of the knee. ? In most cases, a Virgen cyst results from another knee problem that causes swelling inside the knee. ? A Virgen cyst that is not painful may go away without treatment. ? If needed, treatment for a Virgen cyst may include resting, keeping weight off of the knee, medicines, or draining fluid from the cyst. ? Surgery may be needed if other treatments are not effective. This information is not intended to replace advice given to you by your health care provider. Make sure you discuss any questions you have with your health care provider. Document Revised: 09/28/2019 Document Reviewed: 09/28/2019 [employer] Patient Education ? 2022 [employer]. Acute Pain, Adult Acute pain is a type of sudden pain that may last for just a few days or for as long as six months. It is often related to an illness, injury, or medical procedure. Acute pain may be mild, moderate, or severe. Pain can make it hard for you to do your normal, daily activities. It can cause anxiety and lead to other problems if it is left untreated. Treatment depends on the cause and severity of your pain. Acute pain usually goes away once your injury has healed or you are no longer ill. Follow these instructions at home: Medicines ? Take qhgt-clz-jfeyvhh and prescription medicines only as told by your health care provider. ? Take the lowest dose of medicine for the shortest amount of time needed to relieve the pain. ? If you (more content not included)... Normal [facility] ED Patient Summaryon 023 ED Patient Summary [address] [address] Patient Discharge Instructions Person Information Name: NORY DSOUZA Age: 68 Years Arrival Date: 04/21/2023 13:13:43 Discharge Diagnosis: Knee pain Primary Care Physician: DOUG ARTEAGA MD Provider Information Primary Provider: Robson Cartwright DO [employer] Harvester:Raul Vanessa PA-C The exam and treatment you received in the Emergency Department were for an urgent problem and are not intended as complete care. It is important that you follow up with a doctor, nurse practitioner, or physician?s executive chef assistant for ongoing care. If your symptoms become worse or you do not improve as expected and you are unable to reach your usual health care provider, you should return to the Emergency Department. We are available 24 hours a day. NORY DSOUZA has been given the following list of patient education materials, prescriptions and follow-up instructions: Follow-up Instructions: With: Address: When: DOUG ARTEAGA [address] [place] [address] [place] [address] Business (1) In 3 days 04/24/2023 In the event that this physician does not participate in your insurance network, please consult with your insurance company to find a nearby participating provider. Patient Education Materials: Virgen Cyst; Acute Pain, Adult A MESSAGE TO ALL PATIENTS REGARDING OPIOIDS PRESCRIPTION OPIOIDS: WHAT YOU NEED TO KNOW Prescription opioids can be used to help relieve grtbccfr-fo-ilbmvg pain and are often prescribed following a surgery or injury, or for certain health conditions. These medications can be an important part of the treatment but also come with serious risks. It is important to work with your healthcare provider to make sure you are getting the safest, most effective care. WHAT ARE THE RISKS AND SIDE EFFECTS OF OPIOID USE? Prescription opioids carry serious risks of addiction and overdose, especially with prolonged use. An opioid overdose, often marked by slowed breathing, can cause sudden . The use of prescription opioids can have a number of side effects as well, even when taken as directed: ? Tolerance?meaning you might need to take more of the medication for the same pain relief ? Physical dependence?meaning you have symptoms of withdrawal when a medication is stopped ? Increased sensitivity to pain ? Constipation ? Nausea, vomiting, and dry mouth ? Sleepiness and dizziness ? Confusion ? Depression ? Low levels of testosterone that can result in lower sex drive, energy, and strength ? Itching and sweating RISKS ARE GREATER WITH: ? History of drug misuse, substance use disorder, or overdose ? Mental health conditions (such as depression or anxiety) ? Sleep apnea ? Older age (65 years and older) ? Avoid alcohol while taking prescription opioids. Also, unless specifically advised by your health care provider, medications to avoid include: ? Benzodiazepines (such as Xanax or Valium) ? Muscle relaxants (such as Soma or Flexeril) ? Hypnotics (such as Ambien or Lunesta) ? Other prescription opioids KNOW YOUR OPTIONS Talk to your health care provider about ways to manage your pain that don?t involve prescription opioids. Some of these options may actually work better and have fewer risks and side effects. Options may include: ? Pain relievers such as acetaminophen, ibuprofen, and naproxen ? Some medication that are also used for depression or seizures ? Physical therapy and exercise ? Cognitive behavioral therapy, a psychological, goal-directed approach, in which patients learn how to modify physical, behavioral, and emotional triggers of pain and stress. IF YOU ARE PRESCRIBED OPIOIDS FOR PAIN: ? Never take opioids in greater amounts or more often than prescribed. ? Follow up with your primary health care provider. o Work together to create a plan on how to manage your pain. o Talk about ways to help manage your pain that don?t involve prescription opioids. o Talk about any and all concerns and side effects. ? Help prevent misuse and abuse o Never sell or share prescription opioids. o Never use another person?s prescription opioids. ? Store prescription opioids in a secure place and out of reach of others (this may include visitors, children, friends, and family). ? Safely dispose of unused prescription opioids: Find your community drug take-back program or your pharmacy mail-back program, or flush them down the toilet, following guidance from the Food and Drug Administration (www.fda.gov/Drugs/R esourcesForYou). ? Visit www.cdc.gov/drugover dose to learn about the risks of opioids abuse and overdose. ? If you believe you may be struggling with addiction, tell your health home health care social worker and ask for guidance or call [facility]?S iMOSPH[facility] Helpline at 1-343-158-IPX. registracija vozila Source: [place] (more content not included)... Normal [facility] Physician Orderon 04-21-2023 Physician Order [id number] #1.00TIFF [facility] ED Note-Physicianon 12-18-19 ED Note-Physician Basic Information Time Seen: Grant Vazquez MD 11/27/2022 16:18 Chief Complaint pt. states he has had episodes where his heart feels like its racing. one episode of CP earlier today. denies SOB. denies current palpitations. states hx of anxiety. History of Present Illness 67-year-old male presents with a complaint of intermittent episodes of rapid heartbeat. He estimates he has had 4 episodes in the last 24 to 36 hours. He states that the longest episode may have lasted no more than 10 minutes. He is aware of the fast heartbeat and states that it measures as fast as 140 bpm. He states that there are no associated symptoms. There is no pain. He does not feel dizzy or lightheaded. There is no shortness of breath. Patient states he has had episodes like this in the past. He was evaluated in the past by rad technologist at [facility]. He states that they have seen the fast heartbeat their treatment is using a beta-phyllis. He states that his last significant cardiac work-up took place in 2019. He does believe that he had a stress test done at that time. Patient does have a history of elevated cholesterol and elevated blood pressure. Patient is a smoker. His sister had a heart attack in her 40s. Patient denies a history of chronic lung disease. Patient has had a previous abdominal hernia repair. Review of Systems A 10 point review of systems is negative except as noted above. Medical and Surgical History: Reviewed and noted Social history: Lives at home Tobacco: Denies Physical Exam Vitals & Measurements T: 36.4 ?C(Oral) HR: 90(Apical) HR: 90(Monitored) RR: 23 BP: 129/104 SpO2: 96% HT: 170 cm WT: 92.4 kg BMI: 31.97 This is a overweight 67-year-old male he is alert and oriented his skin is warm and dry his color is pink on room air. The heart is regular without murmur gallop or rub. Breath sounds are diminished at both bases. There are some brief expiratory wheezing that is rather scattered. The abdomen is obese soft and nontender. There is no significant edema in the legs. Medical Decision Making As I was beginning to leave the patient's room I looked at the monitor and he suddenly went into what appeared to be fairly regular SVT at a rate of 138 bpm. We did obtain a monitor strip. The patient's laboratory studies were unremarkable. Troponin was normal. I discussed these findings with the patient and we suggested a treatment plan. As I was preparing to leave the room the patient recalled that the last time he had SVT he incidentally had a urinary tract infection. He does request a urinalysis to be done here. The urinalysis has been ordered. UA is positive for urinary tract infection. Patient is given a dose of Keflex in the ED discharged home on Keflex. He is follow-up with his primary care doctor and rad technologist. He is return to the ED for any new or worsening symptoms. Assessment/Plan 1. SVT (supraventricular tachycardia) (I47.1: Supraventricular tachycardia) Acute UTI (urinary tract infection) (N39.0: Urinary tract infection, site not specified) Orders: cephalexin, 500 mg = 1 cap(s), Oral, BID, X 7 day(s), # 14 cap(s), Refills(s) 0, Pharmacy: [facility] , 170, cm, 11/27/22 16:29:00 EDT, Height/Length Dosing, 92.4, kg, 11/27/22 16:29:00 EDT, Weight Dosing cephalexin, 500 mg = 1 cap(s), Cap, Oral, Once, Stop date 11/27/22 18:58:00 EDT, STAT, Start date 11/27/22 18:58:00 EDT, 11/27/22 18:58:00 EDT metoprolol, See Instructions, 2 tabs in the morning and evening and 1 tab in the afternoon, # 20 tab(s), Refills(s) 0, Pharmacy: [id number], 170, cm, 11/27/22 16:29:00 EDT, Height/Length Dosing, 92.4, kg, 11/27/22 16:29:00 EDT, Weight Dosing Medications Administered Given Metoprolol tartrate 25 mg Tab, 25 mg, Oral Disposition Plan Discharge Prescription List Prescriptions No active prescription medications Follow-up With When Contact Information Contact your rad technologist Tuesday. 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 Medications Inpatient Metoprolol tartrate 25 mg Tab, 25 mg= 1 tab(s), Oral, BID Home amLODIPine 2.5 mg Tab aspirin 81 mg oral tablet, 1 tab(s), Oral, Daily, Not taking calcium (as citrate)-vitamin D 500 m (more content not included)... Normal [facility] Comment on above: Result Comment: Elec tronically Signed By: George FISCHER, Grant\.br\Date and Time Signed: 12/17/22 09:44 EDT C Urineon 11-29-2022 Bacteria identified Cx Nom (U) Microbiology PROCEDURE: Urine Culture [R1] SOURCE: U CleanCatch BODY SITE: COLLECTED DATE/TIME: 11/27/2022 18:30 EDT RECEIVED DATE/TIME: 11/27/2022 19:00 EDT START DATE/TIME: 11/27/2022 19:00 EDT FREE TEXT SOURCE: George FISCHER, Grant Vazquez MD, Grant FINAL REPORTS Final Report [] Verified Date/Time: 11/29/2022 09:45 EDT >100,000 cfu/ml Escherichia coli SUSCEPTIBILITY RESULTS LEGEND: S=Susceptible, N/R=Not Reported, Blank=Data not available, or drug not advisable or tested, I=Intermediate, ESBL=Extended spectrum beta-lactamase, R=Resistant, TFG=Thymidine-depend ent strain, GONZALES=Beta-lactamase positive, FELIPE=mcg/m;(mg/L), S*=Predicted susceptible interp, R*=Predicted resistant interp EC Antibiotic FELIPE Dilutn FELIPE Interp Amikacin <=16 S Ampicillin <=8 S Ampicillin/ <=8/4 S Sulbactam Aztreonam <=4 S Cefazolin <=2 S Cefepime <=2 S Cefoxitin <=8 S Ceftazidime <=1 S Ceftazidime/ <=8 S Avibactam Ceftriaxone <=1 S Ciprofloxacin <=1 S Ertapenem <=0.5 S Gentamicin <=4 S Levofloxacin <=2 S Meropenem <=1 S Nitrofurantoin <=32 S Piperacillin/ <=16 S Tazobactam Tetracycline <=4 S Tigecycline <=2 S Tobramycin <=4 S Trimethoprim/ <=2/38 S Sulfa Performing Locations R1: This test was performed at: [facility], [address] [place] [address], [address]- , , Normal [facility] Comment on above: Performed By: #### 2 [id number], [id number] #### [facility] [address] [place] [address] Discharge Instructionson Discharge Instructions [id number] #1.00CD:127 Normal [facility] Auto Diffon 11-27-2022 Basophils/100 WBC (Bld) 0.3 % Normal 0.0-2.0 [facility] Comment on above: Order Comment: Order Added by Discern Expert. Performed By: #### 1 1600956, 0525672, 89850878, 43306167, 2945068, 2801734, 7543620, 32574497 #### [facility] [address] [place] [address] Basophils/Leukocytes Auto (Bld) [Pure # fraction] 0.0 E9/L Normal 0.0-0.2 [facility] Comment on above: Order Comment: Order Added by Discern Expert. Performed By: #### 1 9306846, 7626606, 38813406, 30422519, 6387467, 1713632, 7620366, 83612469 #### [facility] [address] [place] [address] Eosinophils/100 WBC (Bld) 0.3 % Normal 0.0-8.0 [facility] Comment on above: Order Comment: Order Added by Discern Expert. Performed By: #### 1 5941175, 9488205, 63527957, 75409501, 5731613, 2200370, 9467430, 40982878 #### [facility] [address] [place] [address] Eosinophils/Leukocyte s Auto (Bld) [Pure # fraction] 0.0 E9/L Normal 0.0-0.5 [facility] Comment on above: Order Comment: Order Added by Discern Expert. Performed By: #### 1 5733292, 6659773, 95897112, 87811016, 3358408, 4509105, 1324824, 43865588 #### [facility] [address] [place] [address] Lymphocytes/100 WBC (Bld) 35.2 % Normal 14.0-50.0 [facility] Comment on above: Order Comment: Order Added by Discern Expert. Performed By: #### 1 1555480, 8588362, 68952132, 66939149, 1668795, 0785112, 5595231, 84608803 #### [facility] [address] [place] [address] Lymphocytes/Leukocyte s Auto (Bld) [Pure # fraction] 2.2 E9/L Normal 1.0-4.0 [facility] Comment on above: Order Comment: Order Added by Discern Expert. Performed By: #### 1 5330361, 9468099, 45978138, 20058262, 3097862, 0301299, 1733914, 97007087 #### [facility] [address] [place] [address] Monocytes/100 WBC (Bld) 10.6 % Normal 4.0-14.0 [facility] Comment on above: Order Comment: Order Added by Discern Expert. Performed By: #### 1 2504189, 3445967, 64604429, 66180225, 4395180, 0402190, 4249818, 07613521 #### [facility] [address] [place] [address] Monocytes/Leukocytes Auto (Bld) [Pure # fraction] 0.7 E9/L Normal 0.2-1.0 [facility] Comment on above: Order Comment: Order Added by Discern Expert. Performed By: #### 1 2399033, 9417054, 47644340, 45958407, 8127837, 4930338, 9051200, 68601637 #### [facility] [address] [place] [address] Neutrophils/100 WBC (Bld) 53.6 % Normal 36.0-75.0 [facility] Comment on above: Order Comment: Order Added by Discern Expert. Performed By: #### 1 2433890, 4284614, 69584271, 10823317, 1887334, 3135584, 3107376, 84514330 #### [facility] [address] [place] [address] Neutrophils/Leukocyte s Auto (Bld) [Pure # fraction] 3.4 E9/L Normal 2.0-7.5 [facility] Comment on above: Order Comment: Order Added by Discern Expert. Performed By: #### 1 4726350, 5726519, 31972772, 40638104, 6880313, 5138063, 5369581, 60064902 #### [facility] [address] [place] [address] [facility] 11-27-2022 Creatinine [Mass/Vol] 1.0 mg/dL Normal 0.5-1.3 [facility] Comment on above: Performed By: #### 1 7605582, 9388855, 73395971, 17883690, 1252363, 4464798, 2460726, 34607467 ####[facility] [address] [place] [address] Urea nitrogen [Mass/Vol] 17 mg/dL Normal 5-21 [facility] Comment on above: Performed By: #### 1 7977871, 2433614, 63394665, 82881082, 8267511, 8268736, 1376305, 26998099 ####[facility] [address] [place] [address] Urea nitrogen/Creatinine [Mass ratio] 17 No Units Normal 10-20 [facility] Comment on above: Performed By: #### 1 3686613, 9364357, 22576907, 87699221, 1658661, 7096200, 2178204, 31305696 ####[facility] [address] [place] [address] Anion gap [Moles/Vol] 10 mmol/L Normal 6-16 [facility] Comment on above: Performed By: #### 1 0566119, 8065691, 35075028, 57577010, 9690291, 5207933, 7898019, 46831158 ####[facility] [address] [place] [address] Calcium [Mass/Vol] 8.9 mg/dL Normal 8.9-11.1 [facility] Comment on above: Performed By: #### 1 0725184, 1041992, 06604703, 98734800, 8290589, 3439732, 6018547, 15739649 ####[facility] [address] [place] [address] Chloride [Moles/Vol] 104 mmol/L Normal 101-111 [facility] Comment on above: Performed By: #### 1 7553253, 8331194, 36020630, 96692529, 1240931, 3423689, 2269117, 09063712 ####[facility] [address] [place] [address] CO2 [Moles/Vol] 26 mmol/L Normal 21-31 [facility] Comment on above: Performed By: #### 1 6278684, 9034529, 46789533, 26520994, 8643924, 3170426, 3463900, 40572526 ####[facility] [address] [place] [address] Glucose [Mass/Vol] 88 mg/dL Normal 55-199 [facility] Comment on above: Result Comment: If t his glucose result represents a fasting glucose, interpretation should refer to the following reference range: 55-99 mg/dL Performed By: #### 1 7574244, 6639564, 10417429, 53862934, 5757316, 0782543, 6246793, 15919931 ####[facility] [address] [place] [address] Potassium [Moles/Vol] 4.2 mmol/L Normal 3.5-5.3 [facility] Comment on above: Performed By: #### 1 2305100, 3207424, 90407170, 71893250, 0600085, 2389325, 9994028, 31627919 ####[facility] [address] [place] [address] Sodium [Moles/Vol] 136 mmol/L Normal 135-145 [facility] Comment on above: Performed By: #### 1 7538674, 1343620, 07693989, 34891646, 3546292, 5777055, 6804071, 48374632 ####[facility] [address] [place] [address] BNPon 11-27-2022 Natriuretic peptide B (Bld) [Mass/Vol] 25 pg/mL Normal 5-80 [facility] Comment on above: Performed By: #### 1 2057506, 5601939, 17631433, 55073064, 4873259, 3948889, 8822765, 71941060 ####[facility] [address] [place] [address] CBC w/ Auto Diffon Erythrocyte distribution width (RBC) [Ratio] 14.1 % Normal 10.9-14.2 [facility] Comment on above: Performed By: #### 1 8191332, 6357490, 36938060, 69870140, 8403715, 8095989, 7055865, 06164939 #### [facility] [address] [place] [address] Hematocrit (Bld) [Volume fraction] 42.3 % Normal 37.7-49.0 [facility] Comment on above: Performed By: #### 1 1655784, 7060302, 37238761, 77275083, 4717133, 6728371, 0504316, 49362702 #### [facility] [address] [place] [address] Hemoglobin (Bld) [Mass/Vol] 14.3 g/dL Normal 13.5-17.5 [facility] Comment on above: Performed By: #### 1 2014047, 0873548, 34533824, 14607761, 2615765, 8940189, 6445571, 75474057 #### [facility] [address] [place] [address] MCH (RBC) [Entitic mass] 33.2 pg Normal 27.0-34.0 [facility] Comment on above: Performed By: #### 1 9023121, 8351398, 06738601, 48869628, 2034595, 9898603, 2857592, 85427795 #### [facility] [address] [place], [place] [address] MCHC (RBC) [Mass/Vol] 33.9 g/dL Normal 31.4-36.0 [facility] Comment on above: Performed By: #### 1 8797903, 7370651, 59554899, 33708138, 9203220, 4546379, 6160811, 19561452 #### [facility] [address] [place], [place] [address] MCV (RBC) [Entitic vol] 98.1 fL Normal 80.0-100.0 [facility] Comment on above: Performed By: #### 1 1751235, 2082976, 96737369, 54723190, 1599496, 8582385, 1008874, 11331714 #### [facility] [address] [place] [address] Platelet mean volume (Bld) [Entitic vol] 11.4 fL High 6.4-10.8 [facility] Comment on above: Performed By: #### 1 1668822, 3238290, 01327912, 89371407, 5668127, 0767312, 2703735, 89779219 #### [facility] [address] [place] [address] Platelets (Bld) [#/Vol] 110.0 E9/L Low 150.0-500.0 [facility] Comment on above: Performed By: #### 1 7940695, 9216601, 65157415, 25001782, 7424457, 4153015, 4586672, 61868094 #### [facility] [address] [place] [address] RBC (Bld) [#/Vol] 4.3 E12/L Normal 4.3-5.9 [facility] Comment on above: Performed By: #### 1 6156236, 8019486, 30831056, 59668169, 3579412, 9523896, 0715815, 67751869 #### [facility] [address] [place] [address] WBC corrected for nucl RBC Auto (Bld) [#/Vol] 6.3 E9/L Normal 4.0-11.0 [facility] Comment on above: Performed By: #### 1 6300347, 4488957, 17273488, 72618156, 5372799, 6583769, 5367336, 66156227 #### [facility] [address] [place] [address] CHEMISTRYOrdered By: SYSTEM SYSTEM on 11-27-2022 Anion gap [Moles/Vol] 10 mmol/L Normal 6 - 16 mEq/L [facility] Calcium [Mass/Vol] 8.9 mg/dL Normal 8.9 - 11. 1 mg/dL [facility] Chloride [Moles/Vol] 104 mmol/L Normal 101 - 1 11 mmol/L [facility] CO2 [Moles/Vol] 26 mmol/L Normal 21 - 31 mmol/L [facility] Creatinine [Mass/Vol] 1.0 mg/dL Normal 0.5 - 1.3 mg/dL [facility] GFR/1.73 sq M.predicted among non-blacks MDRD (S/P/Bld) [Vol rate/Area] 81 mL/min/1.73 m2 Normal >=59mL/min/1 .73 m2 [facility] S Glucose [Mass/Vol] 88 mg/dL Normal 55 - 199 mg/dL [facility] Magnesium [Mass/Vol] 1.9 mg/dL Normal 1.3 - 2 .4 mg/dL [facility] Potassium [Moles/Vol] 4.2 mmol/L Normal 3.5 - 5.3 mmol/L [facility] Sodium [Moles/Vol] 136 mmol/L Normal 135 - 145 mmol/L [facility] Troponin I.cardiac [Mass/Vol] 4.80 pg/mL Low 15.90 - 38.40 pg/mL [facility] Urea nitrogen [Mass/Vol] 17 mg/dL Normal 5 - 21 mg/dL [facility] Urea nitrogen/Creatinine [Mass ratio] 17 mg/mg Normal 10 - 20 [facility] CHEMISTRYOrdered By: Bernadette Garsia on 11-27-2022 Natriuretic peptide B (Bld) [Mass/Vol] 25 pg/mL Normal 5 - 80 pg/mL [facility] HemeManSS COAGULATIONOrdered By: Arpit Quinonez on 11-27-2022 aPTT Coag (PPP) [Time] 31.9 s Normal 25.1 - 36.5 second(s) [facility] Auto Coag INR Coag (PPP) [Relative time] 1.2 {INR} Invalid Interpretation Code [facility] Coag PT Coag (PPP) [Time] 13.7 s High 9.4 - 1 2.5 second(s) [facility] Auto Coag Consent for Treatmenton Consent for Treatment [id number] #1.00CD:127 Normal [facility] ED Clinical Summaryon 2022 ED Clinical Summary [address] [address] ED Clinical Summary Person Information Name: NORY DSOUZA [place] Age: 67 Years : 1955 Sex: Male Language: Lebanese PCP: VERDOUG CASILLAS MD Marital Status: Visit Id: Visit Reason: Palpitations; RAPID HEART RATE Speciality: Acuity: 2 Enc Type: Emergency Med Service: Emergency Arrival: 11/27/2022 16:16:19 Discharge: 11/27/2022 19:31:45 LOS: 000 03:15 Checkin: 11/27/2022 16:16:19 Checkout: 11/27/2022 19:31:45 Dispo Type: Home (Routine DC) EVENTS: Event Name Event Status Request Date/Time Start Date/Time Complete Date/Time Arrive Complete 11/27/2022 16:16:19 11/27/2022 16:16:19 11/27/2022 16:16:19 Document Home Meds Request 11/27/2022 16:16:19 Triage Complete 11/27/2022 16:16:19 11/27/2022 16:29:49 11/27/2022 16:29:49 Dr Exam Complete 11/27/2022 16:18:40 11/27/2022 16:18:40 11/27/2022 16:18:40 Registration Complete 11/27/2022 16:18:40 11/27/2022 16:19:39 11/27/2022 16:20:23 EKG Complete 11/27/2022 16:19:04 11/27/2022 16:27:10 Bed Assign Complete 11/27/2022 16:19:39 11/27/2022 16:19:39 11/27/2022 16:19:39 RN Exam Complete 11/27/2022 16:19:39 11/27/2022 16:33:15 11/27/2022 16:33:15 Reg Complete Request 11/27/2022 16:20:23 Pending Labs Request 11/27/2022 16:41:49 Lab Complete 11/27/2022 16:41:49 11/27/2022 17:22:21 Patient Care Request 11/27/2022 16:41:49 X-Ray Complete 11/27/2022 16:41:49 11/27/2022 16:43:45 11/27/2022 16:51:12 Pending Labs Complete 11/27/2022 16:47:08 11/27/2022 16:47:08 11/27/2022 17:16:04 Lab Complete 11/27/2022 16:47:08 11/27/2022 16:47:08 11/27/2022 17:16:04 Wet Read Request 11/27/2022 16:51:12 Pending Labs Complete 11/27/2022 16:51:13 11/27/2022 16:51:13 11/27/2022 16:51:19 Lab Complete 11/27/2022 16:51:13 11/27/2022 16:51:13 11/27/2022 16:51:19 Pending Labs Complete 11/27/2022 17:18:19 11/27/2022 17:18:19 11/27/2022 17:18:19 Meds Admin Request 11/27/2022 17:26:37 Pending Labs Complete 11/27/2022 18:23:37 11/27/2022 18:57:26 Lab Complete 11/27/2022 18:23:37 11/27/2022 18:57:26 Urine Collect Complete 11/27/2022 18:23:37 11/27/2022 18:57:26 Pending Labs Inlab 11/27/2022 18:41:42 11/27/2022 18:41:42 Lab Inlab 11/27/2022 18:41:42 11/27/2022 18:41:42 Meds Admin Complete 11/27/2022 18:58:50 11/27/2022 19:02:40 Discharge Complete 11/27/2022 19:07:31 11/27/2022 19:31:51 11/27/2022 19:31:51 Dr Exam Complete 11/27/2022 19:15:27 11/27/2022 19:15:27 11/27/2022 19:15:27 Registration Request 11/27/2022 19:15:27 Transfer Complete 11/27/2022 19:31:51 11/27/2022 19:31:51 11/27/2022 19:31:51 ADDRESS: [address] [place] [address] [id number] PHYS DOC NOTES: MEDICAL INFORMATION: Prescriptions Given: New Medications [id number], [address], [place] [id number], [phone] cephalexin (Keflex 500 mg Cap) 1 Capsules By Mouth 2 times a day for 7 Days. Refills: 0. Medications to Continue Taking That Have Changed [id number], [address], [place] [id number], [phone] START: metoprolol (Metoprolol tartrate 25 mg Tab) 2 tabs in the morning and evening and 1 tab in the afternoon. Refills: 0. Other Medications START: metoprolol (Lopressor 25 mg oral tablet) 1 Tablets By Mouth 4 times a day. Refills: 0. Medications to Continue with No Changes Other Medications amlodipine (amLODIPine 2.5 mg Tab) aspirin (aspirin 81 mg oral tablet) 1 Tablets By Mouth every day. atorvastatin (Lipitor 10 mg oral tablet) 1 Tablets By Mouth every day. calcium-vitamin D (calcium (as citrate)-vitamin D 500 mg-200 intl units oral tablet, chewable) 500MG/400MG By Mouth every day. ciprofloxacin (Cipro 500 mg Tab) By Mouth every 12 hours. dexamethasone (dexamethasone 0.5 mg oral tablet) 1 Tablets By Mouth every day. lansoprazole (Prevacid 30 mg Cap-EC) 1 Capsules By Mouth every day. Take one capsule by mouth every day. multivitamin with minerals (One A Day Men 50 Plus) 1 TAB By Mouth every day. pravastatin (pravastatin 40 mg Tab) 1 Tablets By Mouth at bedtime. PATIENT EDUCATION INFORMATION: Instructions: Urinary Tract Infection, Adult, Rxiy-sv-Jgkw; Supraventricular Tachycardia, Adult, Jdkt-ag-Yaou Follow up: With: Address: When: Contact your rad technologist Tuesday. With: Address: When: DOU[place] [address] Business (1) In 3 days DIAGNOSIS: 1:SVT (supraventricular tachycardia); Acute UTI (urinary tract infection) Normal [facility] ED Patient Education Noteon 11-27-2022 ED Patient Education Note Cardiovascular Supraventricular Tachycardia, Adult Supraventricular tachycardia (SVT) is a kind of abnormal heartbeat. It makes your heart beat very fast. This may last for a short time and then return to normal, or it may last longer. A normal resting heartbeat is 60?100 times a minute. This condition can make your heart beat more than 150 times a minute. Times of having a fast heartbeat (episodes) can be scary, but they are usually not dangerous. In some cases, they may lead to heart failure if they: ? Happen many times a day. ? Last longer than a few seconds. What are the causes? This condition happens when electrical signals are sent out from areas of the heart that do not normally send signals for the heartbeat. What increases the risk? You are more likely to develop this condition if you are: ? Middle aged or younger. ? Female. The following factors may also make you more likely to develop this condition: ? Stress. ? Feeling worried or nervous (anxiety). ? Tiredness. ? Smoking. ? Stimulant drugs, such as cocaine and methamphetamine. ? Alcohol. ? Caffeine. ? . ? Having certain medical conditions. What are the signs or symptoms? ? A pounding heart. ? A feeling that your heart is skipping beats (palpitations). ? Weakness. ? Trouble getting enough air. ? Pain or tightness in your chest. ? Dizziness or feeling like you are going to pass out (faint). ? Feeling worried or nervous. ? Sweating. ? Feeling like you may vomit (nausea). ? Passing out. ? Tiredness. Sometimes, there are no symptoms. How is this treated? Treatment may include: ? Vagal nerve stimulation. Ways to do this include: ? Holding your breath and pushing, as though you are pooping (having a bowel movement). ? Massaging an area on one side of your neck. Do not try this yourself. Only a doctor should do this. If done the wrong way, it can lead to a stroke. ? Bending forward with your head between your legs. ? Coughing while bending forward with your head between your legs. ? Putting an ice-cold, wet towel on your face. ? Medicines that prevent attacks. ? Medicine to stop an attack given through an IV tube at the hospital. ? A small electric shock (cardioversion) that stops an attack. ? A procedure to get rid of cells in the area that is causing the fast heartbeats (radiofrequency ablation). If you do not have symptoms, you may not need treatment. Follow these instructions at home: Stress ? Avoid things that make you feel stressed. ? To deal with stress, try: ? Doing yoga or meditation. ? Being out in nature. ? Listening to relaxing music. ? Doing deep breathing. ? Taking steps to be healthy, such as getting lots of sleep, exercising, and eating a balanced diet. ? Talking with a mental health doctor. Lifestyle ? Try to get at least 7 hours of sleep each night. ? Do not smoke or use any products that contain nicotine or tobacco. If you need help quitting, ask your doctor. ? Do not drink alcohol if it gives you a fast heartbeat. ? If alcohol does not seem to give you a fast heartbeat, limit your alcohol use. If you drink alcohol: ? Limit how much you have to: ? 0?1 drink a day for women who are not . ? 0?2 drinks a day for men. ? Know how much alcohol is in your drink. In the [place] one drink equals one 12 oz bottle of beer (355 mL), one 5 oz glass of wine (148 mL), or one 1? oz glass of hard liquor (44 mL). ? Be aware of how caffeine affects you. ? If caffeine gives you a fast heartbeat, do not eat, drink, or use anything with caffeine in it. ? If caffeine does not seem to give you a fast heartbeat, limit how much caffeine you eat, drink, or use. ? Do not use stimulant drugs. If you need help quitting, ask your doctor. General instructions ? Stay at a healthy weight. ? Exercise regularly. Ask your doctor about good activities for you. Try one or a mixture of these: ? 150 minutes a week of gentle exercise, like walking or yoga. ? 75 minutes a week of exercise that is very active, like running or swimming. ? Do vagus nerve treatments to slow down your heartbeat as told by your doctor. ? Take yoaj-nzt-ydwzuzx and prescription medicines only as told by your doctor. ? Keep all follow-up visits. Contact a doctor if: ? You have a fast heartbeat more often. ? Times of having a fast heartbeat last longer than before. ? Home treatments to slow down your heartbeat do not help. ? You have new symptoms. Get help right away if: ? You have chest pain. ? Your symptoms get worse. ? You have trouble breathing. ? Your heart beats very fast for more than 20 minutes. ? You pass out. These symptoms may be an emergency. Get medical help right away. Call your local emergency services (911 in the [place] ? Do not wait to see if the symptoms will go away. ? Do not drive yourself to the hospital. [facility] (more content not included)... Normal [facility] ED Patient Summaryon 023 ED Patient Summary [address] [address] Patient Discharge Instructions Person Information Name: NORY DSOUZA Age: 67 Years Arrival Date: 11/27/2022 16:16:19 Discharge Diagnosis: 1:SVT (supraventricular tachycardia); Acute UTI (urinary tract infection) Primary Care Physician: DOUG ARTEAGA MD Provider Information Primary Provider: Grant Vazquez MD Advanced Wild Oyster Harvester:None The exam and treatment you received in the Emergency Department were for an urgent problem and are not intended as complete care. It is important that you follow up with a doctor, nurse practitioner, or physician?s executive chef assistant for ongoing care. If your symptoms become worse or you do not improve as expected and you are unable to reach your usual health care provider, you should return to the Emergency Department. We are available 24 hours a day. NORY DSOUZA has been given the following list of patient education materials, prescriptions and follow-up instructions: Follow-up Instructions: With: Address: When: Contact your rad technologist Tuesday. With: Address: When: DOUG ARTEAGA [address] [place] [address] [address]. [place] [phone] Business (1) In 3 days In the event that this physician does not participate in your insurance network, please consult with your insurance company to find a nearby participating provider. Patient Education Materials: Urinary Tract Infection, Adult, Vmew-ts-Yjyy; Supraventricular Tachycardia, Adult, Xqcl-zm-Xdjk A MESSAGE TO ALL PATIENTS REGARDING OPIOIDS PRESCRIPTION OPIOIDS: WHAT YOU NEED TO KNOW Prescription opioids can be used to help relieve utnwdfqa-ol-yfqldt pain and are often prescribed following a surgery or injury, or for certain health conditions. These medications can be an important part of the treatment but also come with serious risks. It is important to work with your healthcare provider to make sure you are getting the safest, most effective care. WHAT ARE THE RISKS AND SIDE EFFECTS OF OPIOID USE? Prescription opioids carry serious risks of addiction and overdose, especially with prolonged use. An opioid overdose, often marked by slowed breathing, can cause sudden . The use of prescription opioids can have a number of side effects as well, even when taken as directed: ? Tolerance?meaning you might need to take more of the medication for the same pain relief ? Physical dependence?meaning you have symptoms of withdrawal when a medication is stopped ? Increased sensitivity to pain ? Constipation ? Nausea, vomiting, and dry mouth ? Sleepiness and dizziness ? Confusion ? Depression ? Low levels of testosterone that can result in lower sex drive, energy, and strength ? Itching and sweating RISKS ARE GREATER WITH: ? History of drug misuse, substance use disorder, or overdose ? Mental health conditions (such as depression or anxiety) ? Sleep apnea ? Older age (65 years and older) ? Avoid alcohol while taking prescription opioids. Also, unless specifically advised by your health care provider, medications to avoid include: ? Benzodiazepines (such as Xanax or Valium) ? Muscle relaxants (such as Soma or Flexeril) ? Hypnotics (such as Ambien or Lunesta) ? Other prescription opioids KNOW YOUR OPTIONS Talk to your health care provider about ways to manage your pain that don?t involve prescription opioids. Some of these options may actually work better and have fewer risks and side effects. Options may include: ? Pain relievers such as acetaminophen, ibuprofen, and naproxen ? Some medication that are also used for depression or seizures ? Physical therapy and exercise ? Cognitive behavioral therapy, a psychological, goal-directed approach, in which patients learn how to modify physical, behavioral, and emotional triggers of pain and stress. IF YOU ARE PRESCRIBED OPIOIDS FOR PAIN: ? Never take opioids in greater amounts or more often than prescribed. ? Follow up with your primary health care provider. o Work together to create a plan on how to manage your pain. o Talk about ways to help manage your pain that don?t involve prescription opioids. o Talk about any and all concerns and side effects. ? Help prevent misuse and abuse o Never sell or share prescription opioids. o Never use another person?s prescription opioids. ? Store prescription opioids in a secure place and out of reach of others (this may include visitors, children, friends, and family). ? Safely dispose of unused prescription opioids: Find your community drug take-back program or your pharmacy mail-back program, or flush them down the toilet, following guidance from the Food and Drug Administration (www.fda.gov/Drugs/R esourcesForYou). ? Visit www.cdc.gov/drugover dose to learn about the risks of opioids abuse and overdose. ? If you believe you may be (more content not included)... Normal [facility] HEMATOLOGYOrdered By: SYSTEM SYSTEM on 11-27-2022 Basophils/100 WBC (Bld) 0.3 % Normal 0.0 - 2.0 % [facility] HemeAutoSS Basophils/Leukocytes Auto (Bld) [Pure # fraction] 0.0 E9/L Normal 0.0 - 0.2 E9/L [facility] HemeAutoSS Eosinophils/100 WBC (Bld) 0.3 % Normal 0.0 - 8.0 % [facility] HemeAutoSS Eosinophils/Leukocyte s Auto (Bld) [Pure # fraction] 0.0 E9/L Normal 0.0 - 0.5 E9/L [facility]eAutoSS Lymphocytes/100 WBC (Bld) 35.2 % Normal 14.0 - 50.0 % [facility] HemeAutoSS Lymphocytes/Leukocyte s Auto (Bld) [Pure # fraction] 2.2 E9/L Normal 1.0 - 4.0 E9/L [facility]eAutoSS Monocytes/100 WBC (Bld) 10.6 % Normal 4.0 - 14.0 % [facility] HemeAutoSS Monocytes/Leukocytes Auto (Bld) [Pure # fraction] 0.7 E9/L Normal 0.2 - 1.0 E9/L [facility]eAutoSS Neutrophils/100 WBC (Bld) 53.6 % Normal 36.0 - 75.0 % [facility] HemeAutoSS Neutrophils/Leukocyte s Auto (Bld) [Pure # fraction] 3.4 E9/L Normal 2.0 - 7.5 E9/L [facility]SS HEMATOLOGYOrdered By: Bernadette Garsia on 11-27-2022 Erythrocyte distribution width (RBC) [Ratio] 14.1 % Normal 10.9 - 14.2 % [facility]eAutoSS Hematocrit (Bld) [Volume fraction] 42.3 % Normal 37.7 - 49.0 % [facility] HemeAutoSS Hemoglobin (Bld) [Mass/Vol] 14.3 g/dL Normal 13.5 - 17.5 gm/dL [facility]eAutoSS MCH (RBC) [Entitic mass] 33.2 pg Normal 27.0 - 34.0 pg [facility] MCHC (RBC) [Mass/Vol] 33.9 g/dL Normal 31.4 - 36.0 gm/dL [facility] MCV (RBC) [Entitic vol] 98.1 fL Normal 80.0 - 100.0 fL [facility] Platelet mean volume (Bld) [Entitic vol] 11.4 fL High 6.4 - 10.8 fL [facility] Platelets (Bld) [#/Vol] 110.0 E9/L Low 150.0 - 500.0 E9/L [facility] RBC (Bld) [#/Vol] 4.3 E12/L Normal 4.3 - 5.9 E12/L [facility]eAuto[facility] WBC corrected for nucl RBC Auto (Bld) [#/Vol] 6.3 E9/L Normal 4.0 - 11.0 E9/L [facility] Magnesiumon 11-27-2022 Magnesium [Mass/Vol] 1.9 mg/dL Normal 1.3-2.4 [facility] Comment on above: Performed By: #### 1 [id number], 1103824, [id number], 18331239, 2151601, 9126945, 5740053, [id number] ####[facility] [address] [place] [address] Monitor Recordon 11-27-2022 Monitor Record [id number] #1.00CD:127 Normal [facility] Monitor Record [id number] #1.00CD:127 Normal [facility] Monitor Record [id number] #1.00CD:127 Normal [facility] Monitor Record [id number] #1.00CD:127 Normal [facility] Monitor Record [id number] #1.00CD:127 Normal [facility] Monitor Record [id number] #1.00CD:127 Normal [facility] PT & PTTon 11-27-2022 aPTT Coag (PPP) [Time] 31.9 second(s) Normal 25.1-36.5 [facility] Comment on above: Result Comment: Para meter 15 days - 4 weeks 1 - 5 months 6 - 11 months 1 - 5 years 6 - 10 years 11 - 17 years PTT Mean: 35.4 (27.6-45.6) Mean: 33.5 (24.8-40.7) Mean: 32.4 (25.1-40.7) Mean: 31.6 (24.0-39.2) Mean: 31.6 (26.9-38.7) Mean: 31.0 (24.6-38.4) Pediatric Reference ranges were obtained from a study by Chaitanya Singh et al. prepared from 1437 samples obtained at 7 different centers using the same coagulation reagent and instrumentation as [facility]. Currently there are no coagulation studies available worldwide for children to 14 days, and no normal ranges. Heparin therapeutic range (represented by Anti-Factor Xa activity of 0.2 - 0.4 U/mL) corresponds to PTT of 56.6 - 109.0 sec. Performed By: #### 1 [id number], 2832832, 46528775, 74904706, 8104984, 4342167, 0896730, 74700159 ####[facility] [place] [address] INR Coag (PPP) [Relative time] 1.2 {INR} Invalid Interpretation Code [facility] Comment on above: Result Comment: INR results are specifically intended to assess patients stabilized on long-term Anticoagulation therapy suggested INR?s ?Less Intensive Anticoagulation? 2.0 ? 3.0 Conventional Range 3.0 ? 4.5 Performed By: #### 1 3980575, 1571505, 47237372, 90999230, 4762687, 1260587, 6910796, 02491548 ####[facility] [address] [place] [address] PT Coag (PPP) [Time] 13.7 second(s) High 9.4-12.5 [facility] Comment on above: Result Comment: 15 d ays - 4 weeks 1 - 5 months 6 -11 months 1 ? 5 years 6 ? 10 years 11 -17 years Mean: 11.2 (9.5 ? 12.6) Mean: 11.0 (9.7 ? 12.8) Mean: 11.0 (9.8 ? 13.0) Mean: 11.3 (9.9 ? 13.4) Mean: 11.7 (10.0 ? 14.6) Mean: 11.8 (10.0 - 14.1) Pediatric Reference ranges were obtained from a study by Chaitanya Singh et al. prepared from 1437 samples obtained at 7 different centers using the same coagulation reagent and instrumentation as [facility]. Currently there are no coagulation studies available worldwide for children to 14 days, and no normal ranges. Performed By: #### 1 [id number], 8216553, 88140749, 68712333, 6372957, 0018219, 1741493, 03871582 ####[facility] [address] [place] [address] Troponin 0 Hr.on 11-27-2022 Troponin I.cardiac [Mass/Vol] 4.80 pg/mL Low 15.90-38.40 [facility] Comment on above: Result Comment: The 95% CI (Confidence Interval) PPV (Positive Predictive Value) for myocardial infarction in females is 38 pg/mL, in males 51 pg/mL. The results should be used in conjunction with clinical conditions of myocardial infarction. (Access High Sensitivity Troponin I Instructions For Use, Marilyn Velvet, December 2017) Performed By: #### 1 [id number], 7940305, 08593184, 29710603, 6112263, 4538418, 3765408, 21827262 ####[facility] [address] [place] [address] UA With Cult Reflexon 2022 Bacteria LM Ql (Urine sed) 3+ /HPF Abnormal Trace [facility] Comment on above: Performed By: #### 2 546073, [id number] #### [facility] [address] [place] [address] Bilirubin Ql (U) Negative Normal Negative [facility] Comment on above: Performed By: #### 2 758615, [id number] #### [facility] [address] [place] [address] Clarity (U) SL CLOUDY Invalid Interpretation Code [facility] Comment on above: Performed By: #### 2 760361, [id number] #### [facility] [address] [place] [address] Color (U) YELLOW Normal Yellow [facility] Comment on above: Performed By: #### 2 186917, [id number] #### [facility] [address] [place] [address] Epithelial cells.squamous LM.HPF (Urine sed) [#/Area] 0-2 Normal 0-2 [facility] Comment on above: Performed By: #### 2 400745, [id number] #### [facility] [address] [place] [address] Glucose Test strip (U) [Mass/Vol] Negative Normal Negative [facility] Comment on above: Performed By: #### 2 239818, 21980460 #### [facility] [address] [place] [address] Hemoglobin Ql (U) 1+ Abnormal Negative [facility] Comment on above: Performed By: #### 2 921872, [id number] #### [facility] [address] [place] [address] Ketones (U) [Mass/Vol] 1+ Abnormal Negative [facility] Comment on above: Performed By: #### 2 424501, [id number] #### [facility] [address] [place] [address] Dixon.plasma/Lithiu m.RBC (Bld) [Mass ratio] 0-3 Normal 0-3 [facility] Comment on above: Performed By: #### 2 061461, 51412008 #### [facility] [address] [place] [address] Nitrite Ql (U) Positive Abnormal Negative [facility] Comment on above: Performed By: #### 2 682194, [id number] #### [facility] [address] [place] [address] pH (U) 6.5 [pH] Invalid Interpretation Code 5.0-9.0 [facility] Comment on above: Performed By: #### 2 032912, 08415196 #### [facility] [address] [place] [address] Protein (U) [Mass/Vol] Negative Normal Negative [facility] Comment on above: Performed By: #### 2 186884, 78954963 #### [facility] [address] [place], [place] [address] Specific gravity (U) [Rel density] 1.015 Invalid Interpretation Code 1.005-1.030 [facility] Comment on above: Performed By: #### 2 881945, 14185582 #### [facility] [address] [place] [address] Type of Urine collection method Clean Catch Normal [facility] Comment on above: Performed By: #### 2 846460, [id number] #### [facility] [address] [place] [address] Urobilinogen Qn (U) 0.2 {Tawny'U}/dL Normal 0.0-1.0 [facility] Comment on above: Performed By: #### 2 383940, 60563879 #### [facility] [address] [place] [address] WBC Auto Ql (U) 1+ Abnormal Negative [facility] Comment on above: Performed By: #### 2 722065, 16398395 #### [facility] [address] [place] [address] WBC LM.HPF (Urine sed) [#/Area] 6-15 Abnormal 0-5 [facility] Comment on above: Performed By: #### 2 615181, [id number] #### [facility] [address] [place] [address] URINALYSISOrdered By: Matteo Quinonez on 11-27-2022 Bacteria LM Ql (Urine sed) 3+ /HPF Invalid Interpretation Code Trace/HPF [facility] UA Auto SS Bilirubin Ql (U) Negative (11/27/22 6:30 PM) Normal Negative [facility] UA Auto SS Clarity (U) SL CLOUDY Invalid Interpretation Code [facility] UA Auto SS Color (U) Yellow (11/27/22 6:30 PM) Normal Yellow [facility] UA Auto SS Epithelial cells.squamous LM.HPF (Urine sed) [#/Area] 0-2 /HPF Normal 0-2/HPF [facility] UA Aut o SS Glucose Test strip (U) [Mass/Vol] Negative (11/27/22 6:30 PM) Normal Negative [facility] UA Auto SS Hemoglobin Ql (U) 1+ *ABN* (11/27/22 6:30 PM) Invalid Interpretation Code Negative [facility] UA Auto SS Ketones (U) [Mass/Vol] 1+ *ABN* (11/27/22 6:30 PM) Invalid Interpretation Code Negative [facility] UA Auto SS Dixon.plasma/Lithiu m.RBC (Bld) [Mass ratio] 0-3 /HPF Normal 0-3/HPF [facility] UA Auto SS Nitrite Ql (U) Positive *ABN* (11/27/22 6:30 PM) Invalid Interpretation Code Negative [facility] UA Auto SS pH (U) 6.5 *NA* (11/27/22 6:30 PM) Invalid Interpretation Code 5.0 - 9.0 [facility] UA Auto SS Protein (U) [Mass/Vol] Negative (11/27/22 6:30 PM) Normal Negative [facility] UA Auto SS Specific gravity (U) [Rel density] 1.015 *NA* (11/27/22 6:30 PM) Invalid Interpretation Code 1.005 - 1.030 [facility] UA Auto SS UA Spec Desc Clean Catch (11/27/22 6:30 PM) Normal [facility] UA Auto SS Urobilinogen Qn (U) 0.7564605 {Atwny'U}/dL Normal 0.0 - 1.0 EU/dL [facility] UA Auto SS WBC Auto Ql (U) 1+ *ABN* (11/27/22 6:30 PM) Invalid Interpretation Code Negative [facility] UA Auto SS WBC LM.HPF (Urine sed) [#/Area] 6-15 /HPF Invalid Interpretation Code 0-5/HPF [facility] UA Auto SS XR Chest Single Viewon 11-27 XR Chest Single View Exam Date/Time: 11/27/2022 16:51 EDT Reason for Exam: Chest pain Report IMPRESSION: NO RADIOGRAPHIC EVIDENCE OF ACUTE INTRATHORACIC PROCESS. EXAM: XR Chest Single View History: Chest pain Technique: Portable AP view of the chest. Comparison: Portable chest radiograph 05/15/2022 Findings: The cardiomediastinal silhouette is within normal limits. No pneumothorax, pleural effusion, or consolidation. No acute osseous abnormality. Ordering Provider: Grant Vazquez FINAL REPORT Dictated: 11/27/2022 5:07 pm Jaden Shook DO Signed (Electronic Signature): 11/27/2022 5:07 pm Signed by: Jaden Shook DO Transcribed by: BALDOMERO Technologist: RONAL Technical Comments Radiation Dose: Ka,r in mGy = na DAP = na Normal [facility] eGFRon 11-27-2022 GFR/1.73 sq M.predicted among non-blacks MDRD (S/P/Bld) [Vol rate/Area] 81 mL/min/1.73 m2 Normal >=59 [facility] Comment on above: Order Comment: Order added by Discern Expert. Result Comment: General Maintenance Engineer anai kidney disease could be indicated at eGFR's of less than 60 mL/min/1.73m2. Kidney failure is indicated at less than 15 mL/min/1.73m2. Performed By: #### 1 1900133, 0655604, 27141007, 25266870, 8574937, 9782682, 3282037, [id number] ####[facility] [address] [place] [address] LIPID PROFILEon 10-11-2022 CHOL-HDL RATIO NORM SEE BELOW Normal [facility] Comment on above: Result Comment: 3.3 - 4.4 LOW RISK 4.4 - 7.1 AVERAGE RISK 7.1 - 11.0 MODERATE RISK >11.0 HIGH RISK Performed By: #### C MP, LIPID #### [facility] [address] [place] [address] [address] Rufina Ramirez Cholesterol [Mass/Vol] 122 mg/dL Normal <=200 [facility] Comment on above: Performed By: #### C MP, LIPID #### [facility] [address] [place] [address] [address] Rufina Ramirez Cholesterol in HDL [Mass/Vol] 42 mg/dL Normal 40-60 [facility] Comment on above: Performed By: #### C MP, LIPID #### [facility] [address] [place] [address] Dr. Rufina Ramirez Cholesterol in LDL [Mass/Vol] 70.2 mg/dL Normal [facility] Comment on above: Performed By: #### C MP, LIPID #### [facility] [address] [place] [address] Dr. Rufina Ramirez Cholesterol.total/Cho lesterol in HDL [Mass ratio] 2.9 {ratio} Normal [facility] Comment on above: Performed By: #### C MP, LIPID #### [facility] [address] [place] [address] Dr. Rufina Ramirez HDL NORMAL > or = 60 mg/dl - LOW CARDIOVASCULAR RISK <40 mg/dl - HIGH CARDIOVASCULAR RISK Normal [facility] [facility] Comment on above: Performed By: #### C MP, LIPID #### [facility] [address] [address] [address] Rufina Ramirez LDL CALC NORMAL SEE BELOW Normal [facility] Comment on above: Result Comment: <100 mg/dl OPTIMAL 100 - 129 mg/dl NEAR OR ABOVE OPTIMAL 130 - 159 mg/dl BORDERLINE HIGH 160 - 189 mg/dl HIGH >190 mg/dl VERY HIGH Performed By: #### C MP, LIPID #### [facility] [address] [place] [address] Dr. Rufina Ramirez Triglyceride [Mass/Vol] 49 mg/dL Normal <=150 [facility] Comment on above: Performed By: #### C MP, LIPID #### [facility] [address] [place] [address] Dr. Rufina Ramirez VLDL CALC 9.8 mg/dL Normal [facility] Comment on above: Performed By: #### C MP, LIPID #### [facility] [address] [place] [address] Dr. Rufina Ramirez PROF 14(COMP METB)on 023 Albumin [Mass/Vol] 3.3 g/dL Critically low 3.4-5.0 [facility] Comment on above: Performed By: #### C MP, LIPID #### [facility] [address] [place] [address] Dr. Rufina Ramirez Albumin/Globulin [Mass ratio] 0.9 {ratio} Normal [facility] Comment on above: Performed By: #### C MP, LIPID #### [facility] [address] [place] [address] Dr. Rufina Ramirez ALP [Catalytic activity/Vol] 71 U/L Normal 46-116 [facility] Comment on above: Performed By: #### C MP, LIPID #### [facility] [address] [place] [address] Dr. Rufina Ramirez ALT [Catalytic activity/Vol] 17 U/L Normal 16-63 [facility] Comment on above: Performed By: #### C MP, LIPID #### [facility] [address] [place] [address] Dr. Rufina Ramirez Anion gap [Moles/Vol] 10.5 mmol/L Normal [facility] Comment on above: Performed By: #### C MP, LIPID #### [facility] [address] [place] [address] Dr. Rufina Ramirez AST [Catalytic activity/Vol] 16 U/L Normal 15-37 [facility] Comment on above: Performed By: #### C MP, LIPID #### [facility] [address] [place] [address] Dr. Rufina Ramirez Bilirubin [Mass/Vol] 0.8 mg/dL Normal 0.2-1.0 [facility] Comment on above: Performed By: #### C MP, LIPID #### [facility] [address] [address] [address] Rufina Ramirez Calcium [Mass/Vol] 8.8 mg/dL Normal 8.5-10.[address] [facility] Comment on above: Performed By: #### C MP, LIPID #### [facility] [address] [address] [address] Rufina Ramirez Chloride [Moles/Vol] 104 mmol/L Normal 98-107 [facility] Comment on above: Performed By: #### C MP, LIPID #### [facility] [address] [place] [address] Dr. Rufina Ramirez CO2 [Moles/Vol] 30.7 mmol/L Normal 21.0-32.0 [facility] Comment on above: Performed By: #### C MP, LIPID #### [facility] [address] [place] [address] Dr. Rufina Ramirez Creatinine [Mass/Vol] 0.93 mg/dL Normal 0.70-1.30 [facility] Comment on above: Performed By: #### C MP, LIPID #### [facility] [address] [place] [address] Dr. Rufina Ramirez EGFR-AF SWEDISH >60 Normal >=60 [facility] Comment on above: Performed By: #### C MP, LIPID #### [facility] [address] [place] [address] Dr. Rufina Ramirez EGFR-NON AF SWEDISH >60 Normal >=60 [facility] Comment on above: Performed By: #### C MP, LIPID #### [facility] [address] [place] [address] Dr. Rufina Ramirez Globulin (S) [Mass/Vol] 3.6 g/dL Normal [facility] Comment on above: Performed By: #### C MP, LIPID #### [facility] [address] [place] [address] Dr. Rufina Ramirez Glucose [Mass/Vol] 95 mg/dL Normal 74-[address] [facility] Comment on above: Performed By: #### C MP, LIPID #### [facility] [address] [place], [place] [id number] Dr. Rufina Ramirez Potassium [Moles/Vol] 4.2 mmol/L Normal 3.5-5.1 [facility] Comment on above: Performed By: #### C MP, LIPID #### [facility] [address] [address] [address] Rufina Ramirez Protein [Mass/Vol] 6.9 g/dL Normal 6.4-8.[address] [facility] Comment on above: Performed By: #### C MP, LIPID #### [facility] [address] [address] [address] Rufina Ramirez Sodium [Moles/Vol] 141 mmol/L Normal 136-[address] [facility] Comment on above: Performed By: #### C MP, LIPID #### [facility] [address] [address] [address] Rufina Ramirez Urea nitrogen [Mass/Vol] 16.0 mg/dL Normal 7.0-18.0 [facility] Comment on above: Performed By: #### C MP, LIPID #### [facility] [address] [address] [address] Rufina Ramirez Urea nitrogen/Creatinine [Mass ratio] 17.2 mg/mg Normal [facility] Comment on above: Performed By: #### C MP, LIPID #### [facility] [address] [address] [address] Rufina Ramirez EMS Documentationon 07-07-19 EMS Documentation Please click on link to see report pdfCD:[id number] gFHQ0UsJdQLIxAAS8PiB wIFIgMiAw THBqRQE6HCEtPCLbEHJ6 KNLsBEBzE4Ohs3AGf1ae BG7yXONiFYR9OWTjHJI3 ELQdBA3pB7BrdKFa MTIyNCAwIFIvSUQgMTIy KRSyACLzKBPgxMUJb6wd XV0fTERtSSF6HNIhJSS6 KZNmIC3kMOmqPH6v L9RkkiUhlTKsOFaaURLj Wo1JRDWfhOQhENB1EB9Y z1nzbwDnGTOqXPurE8Xx HXTcSFPeRTMJZm6q Se1ksDb1G5DITDBtXmBj XVKlQd8FMUYtCUSeHJUm NRNaWVRrUHD2VBUxCv4K QIOlIBAqEWAAMf4m MRAjE2LayCxsFBAUI2Mc hKUnD2U4qUbCfQP3UMAm Jxo8JVTeVm3AS6VtKQL9 WHNgXvPoFJNZTv2c Dk37WNDyKPZvS6LukLH8 AJIxLI21bxR6W7E0iSJr KSEsNB9GTGTxQ0P+Pgpl ydTyEohDVoAuNK6z xlb1NX7VKT8aqAtcWyHg Mjc+ZaK2toNnnAwiU4Br IGNzIDEgIHNjbgoxMCA3 QOLzHFgdEow2XP65 OTMgcmUKZgowLjkxOCAg g6CfArBjWRz8OdJgYFQc MjUgLTEwLjUgcmUKZgoy CISkXfYvFlS2CPU4 MiAtMTAuNSByZQpmCjM5 Vt2lFWO2UJUrLGwkAM9w GC03CSNnPmLUHQSdf3Ms DsB6PM6lTZP5BSGz EB58BINtGPDbMtYbcfWV XtgjHTL0VdrrZjJyHGjd TI5bYyd5SFCvGiBXExNr GeA3PEG8Pe7cYSSg OTIuNzUgLTAuNzUgcmUK FyzsMFMiTgLxQlm5SpE0 CLE7Fc33COXwLG54JXYs NCxpFlR4IS5iIJG1 MOVmNBCzTtw2WV22UTVv DBkbXgViNAn1UY86YEE9 FjAgNB66KLTlTIttEiLu LVu1FeMaNbm4KN0y IX8oRUSuDUvgFnTrBO0s MTQ0MUEgKB59NSBrHYMk MjUgcmUKZgoyMDEuMjUg DaM5TyLeBMnmPuu8 GW8sXmg4NLLpAxOYIsPn KxQ3PHr2BoNpGrh4SF7i FE1tXYSzJWwnTsZ0Ny5o KIM0ONOqGD93RQOv MTEuMjUgcmUKZgozOTMu JrBxEyH8BuMbSEjeGne8 PS8cNvw2XAIdMrMEEqqt MnJ0GGh4PcWhWtr6 ZJ5fIM0fUTFoPSicRfOn PYa4TB33YHZ1FhGrBJ38 AYHuCRhtVuWtLLx3JZ08 LOJhWmAkKFP7EPAn JwRJWsAmFxZ0QCt9VM28 JGCnMxOrAOX9YLUwDqCH DnLhNkV3GOq9VI14KXT9 Kq75BYDuVA87CDJj NJpoFyFhOA1gPMV3OZVf FUJiIxo9LU53MLJoHYqc PnK0Ul0aIQT6KDScMJXs Dis5AZ17JQKqRUmh XyJ0Se5oCWV5ZBPbGCEg OTIuNzUgLTAuNzUgcmUK YruoWOUbEyQcGyA1TcBp GH84ZIDwDbjnzwAR SfjzIKR5NjFpZxGsMCe1 TJ6mWda5DEKxAkZRKPCm SLy1WiT6VDO9XqPvPX85 NSByZQpmCjEwIDY3 QA3cTEPlAyk4JV4cRcby PxQdtbSLJzj3BEHwVqXc Wvh5MpN7IAEcUuOuNQR0 Rv05BDGmEXztXzXy JVD0FKOsV22WGCJuUkOh JpdtAfBuQEw1BeYwKEHr AXBeNcTTINMaw2LsZpHc Hyh9QJZ1Ex6tQGA3 XuElYLVeLA62ZBOpMMmi XeZjYRR2Ds17CXX8VjQm CZ47HWFqTTmiLgEkAPD8 Az5gSYU4FjPsCKSj FnBjjyXFEpzkNPR4GVGu TCCoLji7DG53UZMoFTla YmW8LV3mNEZ3STPnVLIh Wwr7YN21ALRsMWib RbPsKLP3SQPmF94YJQXb RiVdVWu3Heb9BPM4Iu6d NSAtMTIgcmUKZgowICBz K12AQAPtUsDtFZy8 YtMqIex0RsK3QB0qGnh5 ABOlWrYIBF95MQazQRGm xtwiRKwgYWn5Lis0TDS6 Sm3yYLImWTBjaoEN ZpavCUOdY76JGdl2DWI7 XT23ZLX0Oa8dNTCkOP75 IYBpJGrtDpSsBZC9TA37 YTB0KdAfAS06AGSv VQofCoLaDFW0Og42JTJ5 NzYgLTAuNzUgcmUKZgox TMK1XUWfKMVoKiu3NV74 PX34FTRjMyCSCXa8 ZbM1LFJ6AV26JJKlBhYf GUa1TsGlydVXQleqOnhc OAEwl0BvYoWcLqi2WVR9 RS40YTI9TxSkZOFr RVYpinQIXtprICAxH54P FYYrDhRvXUR3OlWwLAq4 LjUgLTAuNzUgcmUKZgo0 RyeuGLM7ToxjBzGo ZKM8WyG2BK2xZar3TSCk OwSNTFI9ZdVjBzraPzAu TTP0PdP6TH3iFps7AWZw ZwJGSJU2HgCfIUV2 GcA7ZPQgSiYpJWX7FlUt flCSHgk7NDZwOCW9CfH7 YDFaTyIeVKS7ShFakvNY HvzlMomuTECvk4Sw SbB4BU3rCTA7UvSlQSAn MTQuNzUgLTEyIHJlCmYK VBPgq2DbKhX0WR4mXYX4 VsKvUuRkSJA8Wdq1 PP3oPgv4PAZjVmYOPUFx OnubAFC3UsEfXK05HHGm ZYctFjQcMDEkOm47EJB0 NzYgLTAuNzUgcmUK KizhBNLhGnUhWK97HTNj LCXaptJZYmw4FQUrVqVz TmenFEEbDjIpQHX3KJAn MmLDMF81HDygVVIu gopdTD24HCNpWcEyWaNa CLo1JfAgGYIeDRKgQhFA ZQAyy2CfAdGvIvk6NIZ7 WFH0TkKzZZQkEA63 NSByZQpmCjEwIDMxOCA1 NzYgLTAuNzUgcmUKZgox QYGnSkXdPfJpSXg0VP5t Xfp5GDSnVcIPFAQz QfB5SGEmZkLbCZU2ZzKr ahWUAxf3QQEpGgAtXbU4 SKPbWvOhCFB5EwTfdzMJ GvddPwkyYTOfp8Zd DaClVtw9YMUvLm7yXCB4 NzQuNSAtMTIgcmUKZgow YVCxW73TLZKbXyKmCmH1 EHP8BQ79TP5sZii9 WJObOqFRQEJsFdX8Bjn4 AIY4FhOfAS35GCEmPRzf ItTtQRUfXDP9DqMxEALp NzUgcmUKZgoxMCAy ZYzkImBtDE22TKTgEJLf AYOrRCogCvY3XL9vHDJg POxvWcDnRX92QMOhWFGm NSByZQpmCjAuOTE4 EIUdG41RJXExDeUiHpE2 AIX5NO78NZ2qDoFdSDjj LkFwLDBbmewnKU91RVHn RvzbQsIaPHy9PwEj LTAuNzUgcmUKZgowLjkx QXDsf3VbZkP8KHS4HE22 OYF4Ly3gKIBsHZUoAQSr ZQpmCjEgIHNjbgox NiAxODAgMzYuNzUgLTQw LjUgcmUKZgowLjkxOCAg e4XmOtH2CFK9DIXmIu49 NSAtNDAuNSByZQpm RgBeZIDpvxk7En98DKZm ODAgNjIuMjUgLTIwLjI1 ZGVeGrHTFA24VYewSEHu xya1Pq81OSHbYDBx BtNrJbEjYBYoXnR1XUCr YoRMNJSre0HhGmCvRPSe ODAgMjAuMjUgLTIwLjI1 QFFjWbDPHK80COwp IHNjbgoxMTUgMTgwIDIw GwM0BK2tMI5gFTCqAGkc CjEgIHNjbgoxMzUuMjUg GGvfSYP4LI0gWD0l XATcUAatAlMpAFG4AIJk Z57HYRV5HbD6QRN8GNS7 NCAtMjAuMjUgcmUKZgox KGOlD91NJFh5PsY4 QGN1IBQyGE45EP6mKX1b WRIpJMcdEtVwVUI3UZUt C57IKQc3NvO3NBD3EJTp FV31KL7bIW3xURXd ZQpmCjEgIHNjbgoyMTcu CiCpYGeqNYWpNC4oSH9i BEQzNNzpIcJkZOT1ROQv T60KPhU9Fak8LDV0 ULG4KuKsKsUcFqEdwwZD OpzbAPCmQ55KKzG8Haw8 SMO3ZSRkIN40PE0qAU4a NSByZQpmCjAuOTE4 UVAsR77OMkB1Ypu0VTQ9 BEFwNH15YG4pZP3xVGBi ZQpmCjEgIHNjbgoyODUu HtIcVDnoGJEbIl1w NSAtMjAuMjUgcmUKZgow CxpqJYGju5KyIuY7NK0b LABcXBBrMRP0FeB1SD6q AK5iMKYxOEwfKfEc KMAudun9CGCeCICuQGTe NTguNSAtMjAuMjUgcmUK RvrjSrrnQMQmr5LdWcFg MR69URB0XWZ9HF35 BI6sJD7fXHNfZCtzBfAc QRAatus9RaHbWUrnTXM3 Oce7YN2mNG6nIGPgDXev KxVfSQY2PGJcW92G BWCxJJO6KMMcOx94ZQUp MjAuMjUgcmUKZgoxICBz W10TAXw6Faa7STU1KZU1 OCAtMjAuMjUgcmUK UnkdLcnvNLSdc8AyWkU1 Qd95WNZwHWRuKYifJYUe AvU5PIFuSwGSJDLvw9Hl BwJ5EZ27QGMrJLVa MjUuNSAtMjAuMjUgcmUK SipcGlhrAKGwb9PmVrS3 CZ17SDYkAHLgOnMkOAIu MjAuMjUgcmUKZgox NRQjO05HEHikCcN4PGU1 LMF0DV9sCJ2iLHPiCIje TgAbWJP3OTYmZ46GJJuk FuJ1RJC3DWC9VU3z VA2wGSEeDPfbXkIuMUOn koi9Lw95KADrFIxnSoLh LmIiNsCeDEBkBjT9TMYz LtLXNG26YOauWOTz esd2Ew32RMPbSSssFyHi AyGsRxSaWLPfGoU0VVKt MxCEAZYju8IvDsHrWZYc NTkuNzUgMjAuMjUg XPAlFwS7GGUwNmUKMD16 MTggIHNjbgoxMTUgMTU5 Iif9GTUsKjN9 (more content not included)... Normal [facility] CBC AUTO DIFFon 06-26-2022 BASO # 0.0 103/ul Normal 0.0-0.1 [facility] Comment on above: Performed By: #### C BC #### [facility] [address] [address] [address] Rufina Ramirez Basophils/100 WBC (Bld) 0.4 % Normal 0.2-2.0 [facility] Comment on above: Performed By: #### C BC #### [facility] [address] [address] [address] Rufina Ramirez EO # 0.0 103/ul Normal 0.0-0.7 [facility] Comment on above: Performed By: #### C BC #### [facility] [address] [address] [address] Rufina Ramirez Eosinophils/100 WBC (Bld) 0.4 % Critically low 0.9-7.0 [facility] Comment on above: Performed By: #### C BC #### [facility] [address] [address] [address] Rufina Ramirez Erythrocyte distribution width (RBC) [Ratio] 13.2 % Normal 11.0-15.0 [facility] Comment on above: Performed By: #### C BC #### [facility] [address] [address] [address] Rufina Ramirez Hematocrit (Bld) [Volume fraction] 39.3 % Critically low 42.0-54.0 [facility] Comment on above: Performed By: #### C BC #### [facility] [address] [address] [address] Rufina Ramirez Hemoglobin (Bld) [Mass/Vol] 13.7 g/dL Critically low 14.0-18.0 [facility] Comment on above: Performed By: #### C BC #### [facility] [address] [address] [address] Rufina Ramirez IG # 0.01 10e3/ul Normal 0.00-0.03 [facility] Comment on above: Performed By: #### C BC #### [facility] [address] [place] [address] Dr. Rufina Ramriez IG % 0.2 % Normal 0.0-0.5 [facility] Comment on above: Performed By: #### C BC #### [facility] [address] [place] [address] Dr. Rufina Ramirez LYMPH # 1.8 103/ul Normal 1.2-3.8 [facility] Comment on above: Performed By: #### C BC #### [facility] [address] [place] [address] Dr. Rufina Ramirez Lymphocytes/100 WBC (Bld) 31.6 % Normal 20.5-60.0 [facility] Comment on above: Performed By: #### C BC #### [facility] [address] [place] [address] Dr. Rufina Ramirez MANUAL DIFF REQ NO Normal [facility] Comment on above: Performed By: #### C BC #### [facility] [address] [place] [address] Dr. Rufina Ramirez MCH (RBC) [Entitic mass] 32.9 pg Normal 25.9-34.0 [facility] Comment on above: Performed By: #### C BC #### [facility] [address] [place] [address] Dr. Rufina Ramirez MCHC (RBC) [Mass/Vol] 34.9 g/dL Normal 29.9-35.2 [facility] Comment on above: Performed By: #### C BC #### [facility] [address] [address] [address] Rufina Ramirez MCV (RBC) [Entitic vol] 94.5 fL Critically high 80.0-94.0 [facility] Comment on above: Performed By: #### C BC #### [facility] [address] [address] [address] Rufina Ramirez MONO # 0.5 103/ul Normal 0.3-0.8 [facility] Comment on above: Performed By: #### C BC #### [facility] [address] [address] [address] Rufina Ramirez Monocytes/100 WBC (Bld) 8.5 % Normal 1.7-12.0 [facility] Comment on above: Performed By: #### C BC #### [facility] [address] [place] [address] Dr. Rufina Ramirez NEUT # 3.3 103/ul Normal 1.4-6.5 [facility] Comment on above: Performed By: #### C BC #### [facility] [address] [address] [address] Rufina Ramirez Neutrophils/100 WBC (Bld) 58.9 % Normal 43.0-75.0 [facility] Comment on above: Performed By: #### C BC #### [facility] [address] [place] [address] Dr. Rufina Ramirez Platelet mean volume (Bld) [Entitic vol] 12.1 fL Normal 9.5-13.5 [facility] Comment on above: Performed By: #### C BC #### [facility] [address] [address] [address] Rufina Ramirez PLT 109 103/ul Critically low 150-450 [facility] Comment on above: Performed By: #### C BC #### [facility] [address] [address] [address] Rufina Ramirez RBC 4.16 106/ul Critically low 4.70-6.10 [facility] Comment on above: Performed By: #### C BC #### [facility] [address] [address] [address] Rufina Ramirez WBC 5.6 103/ul Normal 4.0-11.0 [facility] Comment on above: Performed By: #### C BC #### [facility] [address] [place] [address] Dr. Rufina Ramirez POINT OF CARE GLUCOSEon 05-31 Glucose [Mass/Vol] 97 mg/dL Normal 74-106 [facility] Comment on above: Performed By: #### P OCGLUC #### [facility] [address] [place] [address] Dr. Rufina Ramirez PROF CHEM 8 (BAS METB)on Anion gap [Moles/Vol] 11.2 mmol/L Normal [facility] Comment on above: Performed By: #### B MP #### [facility] [address] [place] [address] Dr. Rufina Ramirez Calcium [Mass/Vol] 8.9 mg/dL Normal 8.5-10.1 [facility] Comment on above: Performed By: #### B MP #### [facility] [address] [place] [address] Dr. Rufina Ramirez Chloride [Moles/Vol] 103 mmol/L Normal 98-107 [facility] Comment on above: Performed By: #### B MP #### [facility] [address] [place] [address] Dr. Rufina Ramirez CO2 [Moles/Vol] 27.2 mmol/L Normal 21.0-32.0 [facility] Comment on above: Performed By: #### B MP #### [facility] [address] [place] [address] Dr. Rufina Ramirez Creatinine [Mass/Vol] 0.81 mg/dL Normal 0.70-1.30 [facility] Comment on above: Performed By: #### B MP #### [facility] [address] [place] [address] Dr. Rufina Ramirez EGFR-AF SWEDISH >60 Normal >=60 [facility] Comment on above: Performed By: #### B MP #### [facility] [address] [address] [address] Rufina Ramirez EGFR-NON AF SWEDISH >60 Normal >=60 [facility] Comment on above: Performed By: #### B MP #### [facility] [address] [address] [address] Rufina Ramirez Glucose [Mass/Vol] 95 mg/dL Normal 74-[address] [facility] Comment on above: Performed By: #### B MP #### [facility] [address] [address] [address] Rufina Ramirez Potassium [Moles/Vol] 4.4 mmol/L Normal 3.5-5.1 [facility] Comment on above: Performed By: #### B MP #### [facility] [address] [address] [address] Rufina Ramirez Sodium [Moles/Vol] 137 mmol/L Normal 136-[address] [facility] Comment on above: Performed By: #### B MP #### [facility] [address] [address] [address] Rufina Ramirez Urea nitrogen [Mass/Vol] 17.0 mg/dL Normal 7.0-18.0 [facility] Comment on above: Performed By: #### B MP #### [facility] [address] [address] [address] Rufina Ramirez Urea nitrogen/Creatinine [Mass ratio] 21.0 mg/mg Normal [facility] Comment on above: Performed By: #### B MP #### [facility] [address] [address] [address] Rufina Ramirez EMS Documentationon 06-17-19 EMS Documentation Please click on link to see report pdfCD:[id number]+prnDQolQUJ SgFMoBREcGcS7JQvdLmQ xTN1ziz1BMEvTG8CnAVW 7ZBU0To8Z VVilBPq3UBLbB85YC5dl JTf9LON9Ab2GnY6gAPRh miBqHEZLA74vXrbsGzKj GKjdUVYdAsw2DltD Mh3hNNEhLPXaTGNyUPPj ICAgICAgICAgICAgICAg ICAgICAgICAgICAgICAg ICAgICAgICAgICAg ICAgICAgICAgICAgICAg ICAgICAgDQplbmRvYmoN Qd9SmRShNl7ZCjJtBiKW CjAwMDAwMDAwMzIg AMFmXMSwpw3CCIIhFNUl TFS2IRIdOCDfETSgJBfg PBXyRQRrYYa8SRUxSZGc RY7KEmRsUAMdBOX0 LNYtZNYeJMChsg8GBMFp MDAwMTkzMyAwMDAwMCBu MEmgDJHvTASrZBo5XCQc ATUlGV3SEmCtXUEf XURnSwdpAYXtJMIuyw1G MDAwMDAwMjMxNCAwMDAw MCBuDQowMDAwMDAyMzk4 UJFzNJUlRI3BRaHv VKXkPLZ4VHbfYQAlHZXe gi9ICKAhSNZbBguqCdVo MDAwMCBuDQowMDAwMDAz FEGxERNgSQKjHS5G QiBoKQZtQZV8SQhdGGSo CYBmve6ZSVKnLWFmXoUe MSAwMDAwMCBuDQowMDAw MDAzODQyIDAwMDAw EX2JZdQcHZOlADTjGDTl NPWcLFRekj8ABAUqVFRk EHY8ElSrZJOpMEHxEAev YDUqKWR7TaP6RBAr VTIjHR6HXcNpHZCdRFZ0 BoMvLKJnLNIokf0BRVQs MDAwNTEzOSAwMDAwMCBu MQrmNOQmETS0WGLw WZUjWETrGB0ZZwOmIITa OUY2UCYdYEEkGQMtxp3O GURvQIZgLRG9PYIrDJBd MCBuDQowMDAwMDQ5 QYG4IQFgVZJeUW6JWaHn RCXcINW8FXLuXZWwSJMg qo5VlHBjxYxwka1VKCsG B1sXQIc5BWI0SFj6 KSe3GZL7JbJ6PrZkBgk6 NjZBOTRFQUFERjg+CjxE M9SQRxNCMayjMahnSGQ5 HlY8CNZ0O8CDDgYe GKLDYv3zOp1AqkN5ICV5 BFUdAnitLp4hxSEnObIw ALRAL8NjjqQhWJkDY4Qc nWAvTYHfT0VBNQR6 Yu10FwkdnYhYEOY5IFWO ZAueYM9SSwrGWkLsCWhw Dn75Z6ILh4F8QaKnZ8JP lTmXrqWVOQqpK9nT qGQ6h8lwxOfQdSGVvUxg OGdJcndPalFSQUlqUHNX sZ43iueJW2PsCHs0R5RL Cm8RZSyyWxGivO2A uTauPMR8jU7bRQBSVLoN UnyhWO2XHXJVULk3OBl+ PiAgICAgICAgICAgICAg ICAgICAgICAgICAg ICAgICAgICAgICAgICAg ICAgICAgICAgICAgICAg ICAgICAgICAgICAgICAg ICAgICAgICAgICAg ICAgICAgICAgICAgICAg ICAgICAgICAgICAgICAg ICAgICAgICAgICAgICAg ICAgICAgICAgICAg ICAgICAgICAgICAgICAg ICAgICAgICAgICAgICAg ICAgICAgICAgICAgICAg ICAgICAgICAgICAg ICAgICAgICAgICAgICAg ICAgICAgICAgICAgICAg ICAgICAgICAgICAgICAg ICAgICAgICAgICAg ICAgICAgICAgICAgICAg ICAgICAgICAgICAgICAg ICAgICAgICAgICAgICAg ICAgICAgICAgICAg ICAgICAgICAgICAgICAg ICAgICAgICAgICAgICAg ICAgICAgICAgICAgICAg ICAgICAgICAgICAg ICAgICAgICAgICAgICAg ICAgICAgICAgICAgICAg ICAgICAgICAgICAgICAg ICAgICAgICAgICAg IS8Lw5ZzyxY1pvBkAYga TAdtNPMNRk3FDXrtOuKd VO4kzp6ZTAbFV74kkLYu YXRhIDIxIDAgUgov X2HafzQuhTviziBmJpYr QBWZAp8YoEFFRMekK1Z4 hNcrUMIcHZrzYELWYp2P SOdwBS7xQESlDVTr Gj9nUGzoBBYhVVByGyZk OHVJSd3WoGXkWK9FVEKu cE9aWl5+DQplbmRvYmoN Pi2FCbEiQSDdSisN Ndn4Ir4RnLx3EHNpP3Tz GHYdXNZdg2HvHj1NFB3z zTubSNF2Ax1QNVp7Em7+ DOmqmTVkMG2XDbfn S8OaBGKbVREsIXHl7CyM IuFAAQpTgGwhqBgXA+OU TRDm+fAMrUCEwR8MMOfS MQODLtjsJCA+D8Tq YT4zjsyPTsFlZiIgEXU7 D9tTGHTVEQ8yZUwO5Ybt icIwm8ZP0bLQeTZiOOq4 Y2CI2o/jSELb7SR+ TKtjkrQpxTEjDG6NRnIr FH9qts6CRQkiZEKfHL2t im6TKKhYN3NaxqJvikPh VYp2WoTnMPFpAh6I ZWRpYUJveCBbMCAwIDYx EiA5XRJtEc1JPITpbaLs LvIeNAZAHq9CKQKnkVBh PRKoNJzQT1iYTirx V0EoAEpRU1pgUjD4SLJ9 IDAgUgo+Pgo+PgovVHlw ZSAvUGFnZQo+Lj7ZKJ9m q1EdVSnKLaC6BACd k9BvFYv6ZOqqQsHynXVu ZPOdDDMqUyN7XCOlXs1Y eNe6RZUbK6YtJKDlQYTh h9ZaEp1JBN3bzAne PnQWU5Uqx861tnQlbwF1 TRruUM8zgyBttOL2NBop SWFiYzYgNDMgMCBSCj4+ Cj4+Jo1EfEV9qIZu LX4Ee6WpGs8YtAMfYK9E K7GrDTU3Hl7+DQpzdHJl GR5EQwqoe7im3Cue1MO0 WLPMIRY5SsB5YQMq SuXlClfI4+Hn3LQ9YOXt ZvICEJHu1DuuLaigLYaH T09aADdUDNYau5pckSgC FWgOADNrDtQNCmVu OAJ2rxCzhL2NKC4ky2Cd WJsAXdT4SRPtu9XnGAp7 HCgxJd9lP91wej0wiGsm D9RlJPqiPRCiFQpn TEogMAovTFcgMgovTUwg ZMwlI8BjaCO5QOhqH5Rb MQo+Qy9MKB7ne7DuYDyF HhO9FGMnk3IsBDz9 XMfrQc6yT71wye8ljAxp K6IwPKj+Vm7BTW7dt6Ol BKiATzW7YCQji7HrTDc4 ABzfHp3eG50yoj0z iOogD2OfBOivJFAzSQjo TEogMAovTFcgMQovTUwg WUprV8UlzMV2IJeyZ6Tf MQo+Bf3NTQ8hc6Lp AWwOByEiOYZgq5HjIMc5 NMsxRsFpOCJcslRxE0AY YMtHGmnJu2UsdIPuNxB8 DPVoKo0mTW5JJg8A YNAzEW2eFU93Uo8esTJl WbRyMSNhAj5MH0RgX99g oP9dBM0AWEKoiHn2vO3U Pa4CkWB5rDSyAJ5P eCCdSSwvKE4Lcldgq6Hm IDMzIDAgUgovVHlwZSAv So6kqUn+Uj7NJV4fy7Ia IHdJNdIyNEWsx9Vt CQw3VKyzHoKkVKIoxyPb H1UFWRsSWcxBl3NzpKQf RpB2BEJzKb5hTT0MNn4H JXOPiEO2OF6WhkWg XFe0Rj4NdkObzgraCkZd TWRssjCtrRjwYn8GYEma i0UwnYMtUDGvBdVjWi2O oEWhxVClOE49INNI Yx8RV9UZDVOuI7xQLULk GP4EIFRxaEm2yHahSSai MEyuTd6jmUMba6FpqBO3 m1PvQuZmTPNSQv9T wEH2cZByKF2JYKSAu736 LYcvHQAHC8X0nECnX2Vx yuHUO8pxUeAtVPUtMeKp NoJ8GxJ2VYs+Pg0K BW1zt5BlXDhEYuYuDBTt m5KjZUp9TTylPUQbCW79 MWshTc99GDs7YrhyX1Nb AJNkE6v1TPE8BA17 PJV5FRkoOUOtI3HctZBm SHDlPxrcRIkPP4UvPQhg ARL6Jw1Wv738VeMjaJNp NII3HC98IGC7FdSl PtYwVjY9ACNqMVyfPK34 OxXgIfZuGvDiSmQ1JTOd WFyiWe3asJBorEWnIBK4 YIAtCsulDd1omK1v cHEjL8TFKUsCVgkJn8Py nWIaNvF0CHXzAe6nLL3Q Ze8NbFYctNMHcbdjDBEd Xx6OkYXcYaW7Ys2u SiI2WInkKYeuGCVrQy5g hUIja8XxmJD7w3AKKr2V LkQsJD8jos3CGWseOaVw SP3iju3MABlKC3Pf bHRlciAvRmxhdGVEZWNv EYXXK8qrvhu3oTNsEKDU Xj8CVsD6neUvdJ4ZlPlv np3rcRTVxr61Degj LJApgfdKwJgcmWWch0Gs V3YBaaRNOaVDvk8k2m5J VrVz3U6iaExbo0EoklRS b60UF79UGnfG89CD DxZIy6Xv2YNe2YLKh1Cm GOh88Z1to7ECs4EPxzOd 09/Lcf34o4PORr8sdrlU rNIXuvuuW6/bxZhf BZS1kbkHLCrRd/Tambdu WDhTsB2Ic8/pxoxL8hQ6 EfG27hJrFbYDr+kE2E5f uBQDq9oJC88nZih+ u+sA8LC73Zf9V25AWKiQ DPaDtYH1tD5X8z5yXrgS qerjwnkPZs9s3ZSL15iD C28u9UjEbAUbg7WE KAIPh8DcVJnzyAyZPGhk wnEyT8rGBB1i01ouA7LJ Is1Y05c6WAwJ+o5QgsdF efJtOfd5p2pYOei/ jCbeWW2JZF2cm5BeEJGw MUolarTbFxcIQh3FTiNi QKWuBhbABbd1Az4UCZTc Mp7qqABiWkMBRmSD M0LmjIYvZFIIOZeCN47V Gg0RDUMzZJ5pVW90Pa8y jJIfJgZ1ZPHoTd0DQ0Rx I06nyF5wCI7RXEEs sDw9xK4BBh3ZrEF6mAJc HA7RtCRsHMdyFJ7Vjpww v5FuSJY7VMKs (more content not included)... Normal [facility] Discharge Instructionson Discharge Instructions [id number] #[id number]:127 Normal [facility] EMS Documentationon 06-14-19 23 EMS Documentation Please click on link to see report pdfCD:[id number] xLjQNCiX5+prnDQolQUJ WaDOfPIKoRvL6AJkoGhS lHR8qfy7WYHmCA9GgIUS gAhTsDo8O FZqnICd0OAGwP94WS8qe QJqmFFHqIp5WqE1mHDJt waDsHXIRU05xIbgiPeSr KYkjOYGtYTP2StZF Ax0jKWFyGTMtXKMcLDMv ICAgICAgICAgICAgICAg ICAgICAgICAgICAgICAg ICAgICAgICAgICAg ICAgICAgICAgICAgICAg ICAgICAgDQplbmRvYmoN Io2TwTAbIl0YFkDtEyDB CjAwMDAwMDAwMzIg XCNsOEKzct5SHOToZDOr UKT3DGZvWOLuSKPpWKji ZRNiMDJuNLl6OJNzKJMv IQ2FOkWfTPKjDKD9 NSJrSUAlKCOafa7WBOCt MDAwMTkzMyAwMDAwMCBu LWbvCJLfVNWgWQz0WCPm IVWhJF4PHhTgZWFj NLLsZqgzPNTkZOOdjw6P MDAwMDAwMjMxNCAwMDAw MCBuDQowMDAwMDAyMzk4 OPRjZVSnXM1UNaQd HYDjUWH6NVwvWTZmTRFn sn1EHDBuOVLpSctqUkHm MDAwMCBuDQowMDAwMDAz GANyUXRoXXWwVD3J YpXgUQQfDUJ9ENWdWBZb KKWrty5UTOYqZKEbEmP9 NCAwMDAwMCBuDQowMDAw CTNtABJ9YQQrYIRj LV7OZgTvAUPgIWWrKCai SQKdDLRaxq0PVAToXGGw PHX4GwKvUDRjIRRuCIvr WVStFJM9IlO0RACg SDDoYQ8UOnYeNNGnVNA9 YaNoTHCtZMNxte2GNKYs MDAwNTEyOSAwMDAwMCBu DVmpRMEpSZR0IAS0 MQEcMRUhSO0ERlDtGGNw IBS2GFqdDJUxAFNcvm3T MDAwMDAwOTQyNCAwMDAw MCBuDQowMDAwMDUw IRl0NGKrXQZhCU0OVjFr MDAwODcwMjQgMDAwMDAg sz5OjQFzfVrnrj0THCzS M5oUWRt5JfX6JxUn WHB2XMFfPRY2DkmMEWKC CuL2DCyYF1NNXGC+Cjw3 APR4GaF4KgUEHIWeGycr RjczNDBBNzVFQzAy IpV4AO3kZi8BxmQ0LMU5 CMHrPfqmHj9ivHBhGwDx HUAOY0CulnZnJIePR9Zs dLFvIMSfP7PYXID7 Oi23AqhrfUoACSU9QZBF VJrjYL2CDwyUMwMqVCvi Aq19K3KXa7B1LfPbA4RI jFeCpcPCXBjeY5wZ dCZ0x7zhsEzJeCBSnJzx OGdJcndPalFSQUlqUHNX qP34skeET1OkJHv1S6QF Qj9VOKivNuMtrA7J dPosHAX3xD7lEBSKEEyR HbwpLH1BGGWFLVn3CHa+ PiAgICAgICAgICAgICAg ICAgICAgICAgICAg ICAgICAgICAgICAgICAg ICAgICAgICAgICAgICAg ICAgICAgICAgICAgICAg ICAgICAgICAgICAg ICAgICAgICAgICAgICAg ICAgICAgICAgICAgICAg ICAgICAgICAgICAgICAg ICAgICAgICAgICAg ICAgICAgICAgICAgICAg ICAgICAgICAgICAgICAg ICAgICAgICAgICAgICAg ICAgICAgICAgICAg ICAgICAgICAgICAgICAg ICAgICAgICAgICAgICAg ICAgICAgICAgICAgICAg ICAgICAgICAgICAg ICAgICAgICAgICAgICAg ICAgICAgICAgICAgICAg ICAgICAgICAgICAgICAg ICAgICAgICAgICAg ICAgICAgICAgICAgICAg ICAgICAgICAgICAgICAg ICAgICAgICAgICAgICAg ICAgICAgICAgICAg ICAgICAgICAgICAgICAg ICAgICAgICAgICAgICAg ICAgICAgICAgICAgICAg ICAgICAgICAgICAg II8Pn2GqwgS3knUoQNad QWyjDTUHSs2VUMdkVsHy KY9eaw8EVHdTS65rqKJk YXRhIDIxIDAgUgov U4VefcJlbSiixsHcGgOf DNPONk6HtLLJVYuwE6G0 jJuuAQQlRCddWIOMGs0H XRmfZX0mABPuCBVf Zf6pUBhxVJUqPCFvYuWl WOJLGj3FmXGnAL8BANAg iA4vXd9+DQplbmRvYmoN Bh4FLvAhSULhFbrE Yvl0Ye5WxEh7CWQuL1Ml SVLnTYAmf9FxDa6OHP1h kVqpFQJ5Fl1YECq1Hm0+ PYcyjPTtJG4AZvzk W2XmJNExGMBtBSSl6DcC kXCgAIUpQLYQVIyLgXGe OXM0WFqZIOATvxqCQDLi ZmDQBZudBMTngVgd qgtEFwHxSSC+BzFGO2kx FwUGWY7T6IwK0BTlXl4L p5K2ERu9DtQ31xHZOKdC FCSwEYL6JjWBKmYH CNdqodYigOJsMD5HOwFi SA2wms9TBZisHMHqFI4k hc0UGPyZS6TuccKjyvSn WHu4SyNyOIJdTg5X ZWRpYUJveCBbMCAwIDYx MyV0YVEeBr0DBCZwhgQa NdKuIUUHHp0TXVFwqRSd IXUuXWkJH9jDVyjz S7QhSKpWQ1olLmA8SFP3 IDAgUgo+Pgo+PgovVHlw ZSAvUGFnZQo+Nx2SXE0l x3PcMKhETbN5ASAq m6UrYCs2SXmuQoPepNVj ENBtAJHtNtA0LXTpBc5X kYp2HFGlZ0RwJBUwMECq a3CrEh0FFI1teOqb NsKXT5Bfz159huIzsaU4 NVsfRT7eidJamKY2QUcs SWFiYzYgNDMgMCBSCj4+ Cj4+Tr7WkXS1hKEd SD9Fs3YbPf7HwTYeLN7R U6SeEAM1Ii7+DQpzdHJl JY7VPifxt8yc6Wwc4JT2 BQJVGAV3GfT8YACt SuXlClfI4+Zy2VW6GXAb SjGVIILk5EmhFqhbKThQ Y94oJCwZUDWwg9ulkTmB FWgOADNrDtQNCmVu MMA8acWdrE6OST5bq1Ps OAuIMjZ6ZLHye4HmBXi3 QRnqMb6sY18vag4ggMgk C6PhZQphPXUwWVwx TEogMAovTFcgMgovTUwg RIphW0IraIZ3DPlcE6Dj MQo+Iu4FAE3my4QpWXlT TyB1ZUAzm5EyTWv4 QKhjYo1mW08nxs1kgBbm C1YdFTj+Qq0OJO2vw2Eo QTeTNmO1ZZQnw9QsHLq0 KCczAw3bH81lbl4f bYzlZ8JmNCirDHFfMAoj TEogMAovTFcgMQovTUwg TByyV5JnwJS4UPvjA4Om MQo+Ay0SIO8hc5Wf OCbEYdYhZXWxs4YcBXv5 VQotJuRnZBAiauGzT3mZ P7cKUguZd7LqhHYtJtU4 VYUkSj7zTI1DCl5T BWVfIC2fQN26Gi2rpZYu QwQrLTRiNc1SL7NhS01f aI3yRH8HVUYzaVu5lV2Y Td6QvSA6zVDcXS3H xKJuTCyuNY8Kuhwzz3Mz IDMzIDAgUgovVHlwZSAv Rb4sbTm+Qi8NMJ7jt4Dh BEyBIqRqUNHdq1Jr TQz7AXftVqOuAWOffrFr Z7gAP0zMRhtLw3XlxSRc JhJ5JMRkEa1xTP3KOb2I KTCMmCV5QJ1DatDx DCa7Wt6GmtSfkvgxVxHx XIXamjNvnDojTf9RVUyt p1WlxWXvBDAlDtPnHy3Z tEResGIsAK57ABTW Up0KK2TUYTSyA1mHSDCy KH0HWSGtlVz3hFwiEIaj UYoqLo3tgNBtk9GknQG7 l3YzHaRcSNXVFb0K lKF0sIJoDJ6VKPUHx622 ZKybZERTL9F2xDQfD0Sb xnHTK8utThZdJYYqMuQr GvP9WbU0ACs+Pg0K MU6bc0EaGJuKJrMaZTRw v6WyKQj3EYdqKVPxXV06 JAhzCn86FGd8MwzgD1Jf MSOiZ3j6MRV7CV35 EBV7PVmuMPQjF3BkiRNx UJWaPzslVSuBB2XoVMfk XEB6Fd2Qu014WuSwySNb BWK2OQ85NPQ1LhLb NvTpLcQ8PNRdHOqeOQ66 ZaEmUjHmCzPrNvM0TYAz FIijEs0mxHXeoTKiUGD1 SZFeDlmpGd3ccO0c wDGoQ9xYS2xVBbePq5Fo hOOfXlU2DVBaJw9dVK6E Sc2TdBIkcGUDkxmhAWBj Qb3LjEXmTnZ5Bk4e PbP2DWplGIxiYTBgOy0x mHHlb0LzqWL1o7OYDo7A XrNtYH0sjl2YVLzdKpAn KZ2djm4RLMgLF7Ct bHRlciAvRmxhdGVEZWNv XVQCY0qolbc7tKUvNRgO Db0PLlY9rgPqqJ0AqRjp LjrazyYAoZvo4toz tx3wF5yTHkV07ZJ8+QBH YoiNErhdczVfD813U2tB PyC4D478k4g0XWZ7nP8q DAe38NzfZF0o1GrW K059BYnQPsj/Zkyo5DaR WXW8Li2IpvOnHFtF8GEF J+5e8DyXbNUXAu08yM9y B1qFgYnft5B1Jfi7 SqRNNsTrL1kjhH1xYyHM yRoIrpr94fL62qdt5XRj cKYeKj0XS9wMmD31wRzy cCooj+PUXp02C7/Y de7ld+nIyTQ8WTwhSIeS KLTXdrHdZta2f07U0q++ kCw+cDcRt51IjcUrRJMf xGSeMMnKjBvJWZkV NQ7qK0UW9opyrWodXdbC fdpxiekP7S5VLWD4v941 UokIF2umzM2o9JVmL5ko XVzL/BFvk1dLWUcj thHunNPzPD8IDrAqAS9m as7DHVjrCWXzIJ5iet0I KEhJO8The9KXh817PM2K IoaBEcMcD819qrls aq8ov5SASTOWE9Iio5Db teOehcCOu707nlUqUcVl ZNNOWLvoYU8jc0Mjhzdu K5eaHE12qFI4GWkG S9J2ZrN5sLGhW6W4nFUt Xe7Qo4IbhXQiYMLaLvvc CWLRPd4ItTNx (more content not included)... Normal [facility] EMS Documentation Please click on link to see report Normal [facility] Comment on above: Result Comment: Miss ing Attachment - total size limit for all attachments exceeded [email or web address] Can be viewed in source system Coding Summary.on 06-09-2022 Coding Summary. CD:[id number] Gh0bWw+PGhlYWQ+PE1FV VSfY99dvCNvwP7BG3rJC U3BULZOQJESND6XUE3mo YQ3IKluT5TpgkGl XcibkYQrHN33OSa0ZMD5 rQcoRRbrgS2bxBNpL3p7 IhZoFS87aL40DRlbULBd OfO3PsAbsynoyWKk S4coAjClxFBrIal+PHRh YmxlIHdpZHRoPScxMDAl IeNtiIcsUL0jXv9zKEYs LWNvbGxhcHNlOiBj i6oxIMLyGPerZK7hcNlr L0YfrNU1LKQbz8l3Kj54 dHI+TDNvQAG6yHseKKoi y241XrXmf5pzYNQ4 vSEmZZcoNNQ1O40ke0T7 HGVnMCZaQTZ9wUM2kK9q dNkypjcxB7QysXIpWjH9 WYC7bRFfvD2ktXfh gsdrxI9yLmf+M45KKG3Z GWUTLL8FVib5P9FjVfez dHI+ER49IPCyVE80pRWr qZXtf9lpgRn5MlKb CUZaRBK1zRpzACafh1Vu HWBbD27ibSBbm9Q1LYAu rXmwlQAfLoLikMV1qM1o HZnkukopv7rqodql Hyoqz0frgl41zT19B53y DKltVIJtTVS5YGIsLRDt fYuyql0uyP9pNs2+IDxj e5owo1mawZu7XrFc RTAklfWwwDkxPQF4b7Jv Qc23T2IcxQimy8LnYqt5 jl07uPGjo6W2cGK0DCdo CWTmlW4tULbjPrJ6 TKKsBeRmdI17xRQjGBzn Kh8feCophEekPQ7wVUEw lmtrLFOqiN4nUNLmoWAl rLjkBJ4dCVChaeqe m475AoRtMEY2TFTthZXp D5VewV2lXjJvDANfQFFi T6KlnVTqMMdyR855YSgz JjV9PTQeaxIzA5Ng SELfuMnoCiP0l1P2Ec1T z6VvrersTYV4LLbvLTVa TgJrKmJcZqG4W4MjVgc8 ORGteUbvQJ6nC7Zz IXLaztxxvpjcuIL7ONPg ZVSruR46nJWwRCeeJh2b x8S7o769HCNfNOTaiI09 Et2skNziBFVgeQTF jC9ycnine4uindtbNeSe CVGaVDx5REp1DYUqyPqk GqLzNJT1UtZ4ONY8dEUw eD7dbMpsptqyyA2s Oyc+C18qlE1fJZJ0RYE2 htmaBADigqByLY71SG39 Q2ZhVohzvRZitGD+PGRp mhWqwLfvZP9xCqFh o8dnx0XdKUytB1ZoETQu JEapBjx7GAHeBMC8vEC4 uR5pTVAePVuze6B2lPI9 R4TgldZxmv0aw9ei KQSbWSexI11uuGCfb6P5 QSRsvJJ8KOHqpGtaRjPx dD76Lzm+HFAxcGvjz5Sq Sxzvb2qco9tlyOe6 IjMwJSIgdmFsaWduPSJ0 i1IpPb58T66wNBneRCUr NHPfIMXrFDLbjUznww4u eM2yCn2+PGNvbCB3 tVL0dH8oTDTqAbR3CDbc J998OxIaiJFgThdxd8mw w6zciAy4IjSaMUDfvfRo mTowPLJ6a7TaNe10 G27xONneMODeEBPwHJOa SZYtpJlyvv8hlF4kQf4+ KI3ov5jsds58fO61sCY+ QQMlBGP7mLypSEay MOUzfD8fCVqfVbN0MXGo VnQqmO64rEKaGAnkRx6d cIxjiYuvHE6sZGTozdbs t348PlDrl2zjLSCl zSPrJEyzJSU0W34xb1O3 UOVwTBIjYHI0gYJ1cE5i bGlnbjogbGVmdDsgdmVy sFczUTseDMynY857 IHRvcDsnPlBhdGllbnQg LmHgYRc0Z8YsWpt1LHJk yOvjSI0wrWRrGXxrKs0z eKeypLliZV2hPKQa tjsbi550KeLly9uwAJDz vIJfWYysOMG4G21aq4E4 QPDqOCKrFIN1eDQ2vV4w bGlnbjogbGVmdDsg jkElpPtwVQbuVXdeC685 IHRvcDsnPkJpcnRoIERh nTJ6MT73OK74vMTjx7L6 wIJ7D0ZyXHVeopog gbkodYS5PFZpYKYgaM26 Pf2quKlkKb5zHCUkXPJ4 DZIcgDNmX1YpeW7bFiCv VRVlPDSbN1YmuVAo PFhnD682GWklGrD5HBRq niNzH9WjWFOgkOtbPpJ1 k2J1Fy7AB4X3SX71BS68 gRMsv2T7qCO2G2Au OYGpvqipustkkLH5NZBv LNAnjE69Ad8eoQlkOb5u KRRdAYH1VYLjtMYaB7Kp wK3aOhQuKGNzGZFp B5GvgOYuFEbmV903GJpn UiR1GYXpekHlX3EkUQGe gGyvOfI6v7H1Ri7IFOo7 WA56CM04zBRez5Z3 nEV6K4DpYHKpdhrbhhfs bKD1NRFmJATphM99Ca6d eAajRq8fYQRnYNF8YZNm uLGkD9PqwD3mZrEp CUOnPLGzJ2QbaIVtALmd G115KPklCsT3XUDkwlCx O6ByLDQlkDgnTaM7g0H4 Fs6MVHZqDL88EQT3 qKG9WV61EJ41E4MbJhvn dGFibGU+PHRhYmxlIHdp ZHRoPScxMDAlJyBzdHls SI9vLi4aLXPgSSGh uQxxoSQvOvFik3exUILx YEvpZN7mhXmbE8MsjID1 NWTzz4y1Iu83T03uC8Jb dXA+NFRcgCJ0rZH3 hY6pOlLjFuO4XEetA828 OzGoeNVnYblwm4kib8ts eQw4GjP9CKBvwqXccQzt IWK9j5OcQs94W62o IHdpZHRoPSIxNSUiIHZh rYtvkj2ftX6aVu9+PGNv yFY6pJP6wI4iBoHrCnF2 AUseV657LjGgyZXt Hekgi5prx3ljePy2RxDw XWJvcsUuxNovQAY1w8Vd Od19U8GfpDirw3QkEsh5 xe69jJIyv3K6xKO8 D4AdLUObthhmpVNehHcc JF2jJPXoasclJGKbeK7l WOVzU2y3SuMuRvR0JVtm E3ObwpU2BDHkdSXj ALidCOM7N81xr6D8YIFf GGXlIUQ8lOE3bZ8vgWde bjogbGVmdDsgdmVydGlj WGpqXWlaE071BYGm vAtpRUBawG5rWBGluXGk cCqnUL9dGTEifagmXxBX SEFGRkVSLCBNSUNIQUVM FNT2Y3UxLjt9MKKm mNmjTG0ewLHfJIwkCb2g wWdbnBrmPD3uFIRvhtbb TDKaeR3vRVHpmQMxmVnw PI7eNFNiekrfe895 RnAqANI6WEFerPKzI1Ft yV6aEyZkRINpOKNrE7Gb tDKfGIydY049VVajCiD6 JLDgxdFdV7DzCOVs aStfVkP6i0W0Wq8yHE4e VJ7qHXSvBH56SX37bTXt y2I7fGI1O3KnZKEtnixv zvfijKN2IZIhFDNg nM84vIToMMjsMm2bv8K9 o890ZETyYXXxpY07Vx7e sIxmOMZsfQLAiW1avrca k5npejooXpRbRYQa HKb6UJq6JSLfvSwcVcGr MGH5WeV6MMI4lEOcgI7j bKgqxftjmG3lNjt+Njkg KJFuxiV0J1EwXcc3 FVBcgBptKU5rtBVbRJbs Bf2ecZitwTdoHG3fLZXr tzdsZWDrxY4nUHJjjWOn hTyhSE8dHLIechvm a677MdFfIDI7EOAugCPc D0GwgE8sTeMeETOoBEMp G8TaiANjXIwoK440PQfk VlB3BUDqboSdE2Iu GNGrlZimSrN6k1Z4Gh3Q DVzeZK18HC69cXWww6S5 sNL3N9HdFAGwuxxhtemk kMP2OOShPCFthD33 vXExYLciYy9et5F2w505 GHJcIAFprX00Sf7ieHos CZMzsGBRcT2ftibwl7sc cjogIzAwMDAwMDt0 CDs6RXPtiMudHbKeDJX0 CjE2DIA3tQCaqS7wvVte kigulI0hRhe+CZ9oaxpd vgC8KS17YQ51O0Qa PjwvdGFibGU+PHRhYmxl IHdpZHRoPScxMDAlJyBz cYfyNC0iVj5wLTNwMPQy sCmaqAUyXuXci3pg IQDmANloWU9gpOutZ6Gs fII4WYYav8k7Kg24W13h V0IjcHE+OJOpsFT7kLN8 dR0hQsTnBoG8QJoi K332HeEucHQpHhuaw6kr i6culKx2ZsCyERWogxJb qZqdABC2m6PzSf56M42i IHdpZHRoPSIyMCUi GLVitCzhvk1bnG3eXs3+ PZBqbCD4xWV7qD7dOqMv BaR5CPooI257UvIfeHXo PxsaP75iO8UhbLT+ SOKmWwg0WUYbvLvbVM4p xYCySYnjEo7pQXG8YsXk NiKjIKnwS2LdOBCtytym nysxmAH2WBNdJELr hD04Mo1zbAwdYr9jZTGe POY5SEJdoPLsD1UdeI8k IlVnWTMmWHLlV0SfoOTv MIipW795YDmfInF6 ZPXoobOiX6QiPFYxcZhv IiB5o7C5Sm8GlEfvaARb PR4yDvGjNVk0E8YyXpr0 LTKdtTvlVS1dsCKp ZBbfHu2ocHyjjKbmOY0f RTCnipkmt736KfKca4oy TIBuaKWvSLnoNIC8V80y p1P4HZUeCEEmHRP3 yIH4hN4jtSicrgmhjVZk dDsgdmVydGljYWwtYWxp R704NTOsrXvlVnPGIpz6 O4RrVwo6JGKhqTrr PT4rcXPiZPbtSk2rtBdu jNnkAQ6rYXOxnjfkk978 CbNox6wkKPEjgPQgXAue KVV8E87cp5S9MPBj ZZQvJTC6gDG7tI0poKvp bjogbGVmdDsgdmVydGlj XSeaFRbjK432FYYhsStz Ul6IJnv1C3KuXsb3 YILkcUfwZC1fyTVcDOzr Im0jaNtnyYanFH5qSCYp syexw728NtVvu4maHJQb sLEmCZgbMRR0Q63z r4U3KICjWABzAPN6fTH1 eP3sxMzuyhwswFAoyQoc ivTwnHrcQXmeFRdwJ381 IHRvcDsnPlBheWVy OjwvdGQ+WZ12uh06J7Ga XtcoSvm5QHXvLLD3eEO6 vF1oTVAuYHzxk7U6xSO6 Y5EoneAyjg7re2au YXBz (more content not included)... Normal [facility] C Urineon 06-07-2022 Bacteria identified Cx Nom (U) Microbiology PROCEDURE: Urine Culture [R1] SOURCE: U CleanCatch BODY SITE: COLLECTED DATE/TIME: 06/05/2022 17:45 EST RECEIVED DATE/TIME: 06/05/2022 21:17 EST START DATE/TIME: 06/05/2022 21:17 EST FREE TEXT SOURCE: Alec Fountain DO, DO, Alec Hammonds FINAL REPORTS Final Report [] Verified Date/Time: 06/07/2022 07:47 EST >100,000 cfu/ml Escherichia coli SUSCEPTIBILITY RESULTS LEGEND: S=Susceptible, N/R=Not Reported, Blank=Data not available, or drug not advisable or tested, I=Intermediate, ESBL=Extended spectrum beta-lactamase, R=Resistant, TFG=Thymidine-depend ent strain, GONZALES=Beta-lactamase positive, FELIPE=mcg/m;(mg/L), S*=Predicted susceptible interp, R*=Predicted resistant interp EC Antibiotic FELIPE Dilutn FELIPE Interp Amikacin <=16 S Ampicillin <=8 S Ampicillin/ <=8/4 S Sulbactam Aztreonam <=4 S Cefazolin <=2 S Cefepime <=2 S Cefoxitin <=8 S Ceftazidime <=1 S Ceftazidime/ <=8 S Avibactam Ceftriaxone <=1 S Ciprofloxacin <=1 S Ertapenem <=0.5 S Gentamicin <=4 S Levofloxacin <=2 S Meropenem <=1 S Nitrofurantoin <=32 S Piperacillin/ <=16 S Tazobactam Tetracycline <=4 S Tigecycline <=2 S Tobramycin <=4 S Trimethoprim/ <=2/38 S Sulfa Performing Locations R1: This test was performed at: [facility], [address] [place] [address], [facility]- , , Normal [facility] Comment on above: Performed By: #### 1 [id number] ####[place] [address] Auto Diffon 06-05-2022 Basophils/100 WBC (Bld) 0.3 % Normal 0.0-2.0 [facility] Comment on above: Order Comment: Order Added by Discern Expert. Performed By: #### 2 [id number], [id number], [id number], [id number], [id number], [id number] ####[address] [address] Basophils/Leukocytes Auto (Bld) [Pure # fraction] 0.0 E9/L Normal 0.0-0.2 [facility] Comment on above: Order Comment: Order Added by Discern Expert. Performed By: #### 2 [id number], [id number], [id number], [id number], [id number], [id number] ####[address] [address] Eosinophils/100 WBC (Bld) 0.4 % Normal 0.0-8.0 [facility] Comment on above: Order Comment: Order Added by Discern Expert. Performed By: #### 2 [id number], [id number], [id number], [id number], [id number], [id number] ####[address] [address] Eosinophils/Leukocyte s Auto (Bld) [Pure # fraction] 0.0 E9/L Normal 0.0-0.5 [facility] Comment on above: Order Comment: Order Added by Debbi Expert. Performed By: #### 2 [id number], [id number], 9192214, 1607116, [id number], [id number] ####[address] [address] Lymphocytes/100 WBC (Bld) 30.2 % Normal 14.0-50.0 [facility] Comment on above: Order Comment: Order Added by Discern Expert. Performed By: #### 2 122731, [id number], 4372949, 1337074, [id number], [id number] ####[address] [address] Lymphocytes/Leukocyte s Auto (Bld) [Pure # fraction] 1.7 E9/L Normal 1.0-4.0 [facility] Comment on above: Order Comment: Order Added by Discern Expert. Performed By: #### 2 311459, 02484480, 3049364, 1047306, 32796885, 25673581 ####[facility] [address] [place] [address] Monocytes/100 WBC (Bld) 8.0 % Normal 4.0-14.0 [facility] Comment on above: Order Comment: Order Added by Discern Expert. Performed By: #### 2 332853, 62213104, 4352435, 8584271, 06927389, 60758244 ####[address] [place] [address] Monocytes/Leukocytes Auto (Bld) [Pure # fraction] 0.4 E9/L Normal 0.2-1.0 [facility] Comment on above: Order Comment: Order Added by Discern Expert. Performed By: #### 2 333458, 60119693, 0815329, 1189292, 42278084, 96124797 ####[address] [place] [address] Neutrophils/100 WBC (Bld) 61.1 % Normal 36.0-75.0 [facility] Comment on above: Order Comment: Order Added by Discern Expert. Performed By: #### 2 224184, 45692895, 5963136, 6665257, 69032931, 76227367 ####[address] [place] [address] Neutrophils/Leukocyte s Auto (Bld) [Pure # fraction] 3.4 E9/L Normal 2.0-7.5 [facility] Comment on above: Order Comment: Order Added by Discern Expert. Performed By: #### 2 379125, 92579278, 7620471, 4196526, 63055982, 34709488 ####[address] [place] [address] BMPon 06-05-2022 Creatinine [Mass/Vol] 0.9 mg/dL Normal 0.5-1.3 [facility] Comment on above: Performed By: #### 2 449034, 65786483, 9594529, 0673451, 55322280, 20624606 ####[facility] [address] [place] [address] Urea nitrogen [Mass/Vol] 13 mg/dL Normal 5-21 [facility] Comment on above: Performed By: #### 2 671065, 37440975, 2581075, 3345375, 48175398, 77921620 ####[facility] [address] [place] [address] Urea nitrogen/Creatinine [Mass ratio] 14 No Units Normal 10-20 [facility] Comment on above: Performed By: #### 2 354188, 05231883, 7074358, 2245850, 05259954, 61384759 ####[facility] [address] [place] [address] Anion gap [Moles/Vol] 8 mmol/L Normal 6-16 [facility] Comment on above: Performed By: #### 2 032998, 02124787, 1551071, 1301174, 77691579, 22938678 ####[facility] [address] [place] [address] Calcium [Mass/Vol] 8.5 mg/dL Low 8.9-11.1 [facility] Comment on above: Performed By: #### 2 893880, 27131899, 7889970, 1628806, 03912102, 79305125 ####[facility] [address] [place] [address] Chloride [Moles/Vol] 103 mmol/L Normal 101-111 [facility] Comment on above: Performed By: #### 2 657732, 76601799, 2731750, 4185249, 25690779, 87128978 ####[facility] [address] [place] [address] CO2 [Moles/Vol] 29 mmol/L Normal 21-31 [facility] Comment on above: Performed By: #### 2 243113, 45032791, 3309177, 8364429, 62311477, 70288642 ####[facility] [address] [place] [address] Glucose [Mass/Vol] 92 mg/dL Normal 55-199 [facility] Comment on above: Result Comment: If t his glucose result represents a fasting glucose, interpretation should refer to the following reference range: 55-99 mg/dL Performed By: #### 2 322207, 85085433, 3549502, 5484927, 74756515, 52525027 ####[facility] [address] [place] [address] Potassium [Moles/Vol] 4.5 mmol/L Normal 3.5-5.3 [facility] Comment on above: Performed By: #### 2 231165, 03508676, 8387611, 9327091, 01218374, 35047026 ####[facility] [address] [place] [address] Sodium [Moles/Vol] 135 mmol/L Normal 135-145 [facility] Comment on above: Performed By: #### 2 900244, 51798048, 3526599, 5202548, 11136959, 52870991 ####[facility] [address] [place] [address] CBC w/ Auto Diffon 3 Erythrocyte distribution width (RBC) [Ratio] 13.6 % Normal 10.9-14.2 [facility] Comment on above: Performed By: #### 2 103800, 90531300, 4866969, 3524976, 03119548, 57530775 ####[facility] [address] [place] [address] Hematocrit (Bld) [Volume fraction] 42.6 % Normal 37.7-49.0 [facility] Comment on above: Performed By: #### 2 330491, 93011586, 3027166, 7722213, 83153268, 28633956 ####[facility] [address] [place] [address] Hemoglobin (Bld) [Mass/Vol] 14.2 g/dL Normal 13.5-17.5 [facility] Comment on above: Performed By: #### 2 275628, 30587508, 2178883, 2238700, 33948563, 38263005 ####[address] [address] MCH (RBC) [Entitic mass] 33.3 pg Normal 27.0-34.0 [facility] Comment on above: Performed By: #### 2 603646, 81324354, 6218308, 8238106, 68210781, 30974094 ####[facility] [address] [place] [address] MCHC (RBC) [Mass/Vol] 33.4 g/dL Normal 31.4-36.0 [facility] Comment on above: Performed By: #### 2 718598, 85553528, 4826616, 8859416, 48785176, 39654708 ####[address] [address] MCV (RBC) [Entitic vol] 99.5 fL Normal 80.0-100.0 [facility] Comment on above: Performed By: #### 2 403002, 16995947, 3004747, 1965129, 50017786, 40576216 ####[address] [address] Platelet mean volume (Bld) [Entitic vol] 10.7 fL Normal 6.4-10.8 [facility] Comment on above: Performed By: #### 2 670957, 58084744, 0076949, 0367171, 84235015, 79417818 ####[address] [address] Platelets (Bld) [#/Vol] 103.0 E9/L Low 150.0-500.0 [facility] Comment on above: Performed By: #### 2 995029, 89971873, 5005631, 4310404, 89086615, 02761416 ####[address] [place] [address] RBC (Bld) [#/Vol] 4.3 E12/L Normal 4.3-5.9 [facility] Comment on above: Performed By: #### 2 894713, 11627943, 5647842, 5804083, 05541932, 47330327 ####[facility] [address] [place] [address] WBC corrected for nucl RBC Auto (Bld) [#/Vol] 5.6 E9/L Normal 4.0-11.0 [facility] Comment on above: Performed By: #### 2 782203, 17261685, 1976021, 6510915, 35552842, 95896762 ####[facility] [address] [place] [address] Consent for Treatmenton Consent for Treatment [id number] Normal [facility] ED Clinical Summaryon 2022 ED Clinical Summary [address] [address] ED Clinical Summary Person Information Name: NORY DSOUZA/[facility] Age: 67 Years : 1955 Sex: Male Language: Lebanese PCP: DOUG ARTEAGA MD Marital Status: Visit Id: Visit Reason: Palpitations; ELEVATED HEART RATE Speciality: Acuity: 2 Enc Type: Emergency Med Service: Emergency Arrival: 06/05/2022 17:35:52 Discharge: 06/05/2022 18:52:06 LOS: 000 01:17 Checkin: 06/05/2022 17:35:52 Checkout: 06/05/2022 18:52:06 Dispo Type: Home (Routine DC) EVENTS: Event Name Event Status Request Date/Time Start Date/Time Complete Date/Time Arrive Complete 06/05/2022 17:35:52 06/05/2022 17:35:52 06/05/2022 17:35:52 Document Home Meds Request 06/05/2022 17:35:52 Triage Complete 06/05/2022 17:35:52 06/05/2022 17:40:43 06/05/2022 17:40:43 Bed Assign Complete 06/05/2022 17:36:31 06/05/2022 17:36:31 06/05/2022 17:36:31 Dr Exam Complete 06/05/2022 17:36:31 06/05/2022 17:37:54 06/05/2022 17:37:54 RN Exam Complete 06/05/2022 17:36:31 06/05/2022 17:48:51 06/05/2022 17:48:51 Registration Complete 06/05/2022 17:37:54 06/05/2022 18:31:38 06/05/2022 18:31:38 EKG Complete 06/05/2022 17:38:00 06/05/2022 17:44:47 Pending Labs Complete 06/05/2022 17:42:39 06/05/2022 18:28:27 Lab Complete 06/05/2022 17:42:39 06/05/2022 18:15:30 Patient Care Request 06/05/2022 17:42:39 RT Request 06/05/2022 17:42:39 Pending Labs Complete 06/05/2022 17:56:59 06/05/2022 18:20:13 Lab Complete 06/05/2022 17:56:59 06/05/2022 18:20:13 Urine Collect Complete 06/05/2022 17:56:59 06/05/2022 18:20:13 Pending Labs Complete 06/05/2022 17:57:41 06/05/2022 17:57:41 06/05/2022 18:15:31 Lab Complete 06/05/2022 17:57:41 06/05/2022 17:57:41 06/05/2022 18:15:31 Pending Labs Complete 06/05/2022 18:01:02 06/05/2022 18:01:02 06/05/2022 18:01:09 Lab Complete 06/05/2022 18:01:02 06/05/2022 18:01:02 06/05/2022 18:01:09 Pending Labs Collected 06/05/2022 18:06:11 06/05/2022 18:06:11 Lab Collected 06/05/2022 18:06:11 06/05/2022 18:06:11 Reg Complete Request 06/05/2022 18:31:38 Meds Admin Complete 06/05/2022 18:39:11 06/05/2022 18:42:58 Discharge Complete 06/05/2022 18:40:14 06/05/2022 18:52:11 06/05/2022 18:52:11 Transfer Complete 06/05/2022 18:52:11 06/05/2022 18:52:11 06/05/2022 18:52:11 ADDRESS: [address] [place] [id number] PHYS DOC NOTES: MEDICAL INFORMATION: Prescriptions Given: New Medications [id number], [address], [place] [id number], [phone] cephalexin (Keflex 500 mg Cap) 1 Capsules By Mouth every 12 hours for 7 Days. Refills: 0. Medications to Continue with No Changes Other Medications amlodipine (amLODIPine 2.5 mg Tab) aspirin (aspirin 81 mg oral tablet) 1 Tablets By Mouth every day. atorvastatin (Lipitor 10 mg oral tablet) 1 Tablets By Mouth every day. calcium-vitamin D (calcium (as citrate)-vitamin D 500 mg-200 intl units oral tablet, chewable) 500MG/400MG By Mouth every day. ciprofloxacin (Cipro 500 mg Tab) By Mouth every 12 hours. dexamethasone (dexamethasone 0.5 mg oral tablet) 1 Tablets By Mouth every day. lansoprazole (Prevacid 30 mg Cap-EC) 1 Capsules By Mouth every day. Take one capsule by mouth every day. metoprolol (Lopressor 25 mg oral tablet) 1 Tablets By Mouth 4 times a day. Refills: 0. multivitamin with minerals (One A Day Men 50 Plus) 1 TAB By Mouth every day. pravastatin (pravastatin 40 mg Tab) 1 Tablets By Mouth at bedtime. PATIENT EDUCATION INFORMATION: Instructions: Urinary Tract Infection, Adult; Palpitations Follow up: With: Address: When: [place] [phone] Business (1) In 3 days 06/08/2022 Comments: Call the office of your rad technologist to establish with the rad technologist listed here to discuss your palpitations. With: Address: When: [address] [place] [address] Business (1) In 3 days 06/08/2022 Comments: Call the office of your primary care doctor to arrange for follow-up within the above-stated timeframe. Follow-up with your primary care doctor about this ED visit. You should review your labs, imaging, and diagnoses from this ED visit with your primary care physician. If you were prescribed medications you should discuss possible side-effects and drug interactions with your pharmacist. Call 911 or go to the nearest Emergency Department if you develop any new or worsening symptoms. Seek immediate medical attention if you develop: worsening chest pain, new chest pain, nausea, vomiting, weakness, numbness, tingling, excessive sweating, shortness of breath, difficulty breathing, loss of motion in your arms or legs, or any new or worsening symptoms. DIAGNOSIS: Acute UTI; Palpitations Normal [facility] ED Note-Physicianon 06-05-19 ED Note-Physician Basic Information Time Seen: Alec Fountain DO 06/05/2022 17:37 Chief Complaint Pt. came here with the squad d/t palpitation that started at 4pm while he's waiting for sabianist service, denies any chest pain, no SOB. History of Present Illness 67-year-old male to the emergency department with chief complaint of palpitations. Patient reports that he has intermittent palpitations. He has been hospitalized and evaluated for this several times and has been told that his anxiety and he does not have any arrhythmia. Patient reports that started tonight at 4 PM and lasted 1 hour. He said he felt panicked during this episode. There is no chest pain or shortness of breath. Was similar to past episodes. He reports he is otherwise at his baseline health. He has no other complaints. Palpitations resolved prior to arrival. Patient still wanted transport via EMS. Review of Systems A 10 point review of systems is negative except as noted above. Medical and Surgical History: Reviewed and noted Social history: Lives at home Tobacco: Denies Physical Exam Vitals & Measurements T: 36.7 ?C(Oral) HR: 60(Monitored) RR: 15 BP: 131/100 SpO2: 98% HT: 170 cm WT: 89.4 kg BMI: 30.93 VITALS: I have reviewed the triage vital signs. GENERAL: Well developed, well appearing adult i male n no acute distress. NEURO: Alert and oriented. Moves all extremities. Face is symmetric and expressive. EYES: PERRL. No scleral icterus or conjunctival injection. No discharge. HENT: Normocephalic, atraumatic. Hearing is grossly intact. Nares grossly patent and without discharge. Mucous membranes moist. NECK: No JVD. Patient moves neck without restriction. CARDIO: Rhythm regular. Normal rate. No murmur, rub, or gallop. Pulses equal bilaterally in the upper and lower extremity. No lower extremity edema. PULM: Lungs clear to auscultation in all hector. No wheezes, rales, or rhonchi. No conversational dyspnea. No splinting, stridor, or accessory muscle use. GI/: Abdomen is soft and non-tender. Normoactive bowel sounds. EXTREMITIES: Symmetric muscle bulk. No joint swelling. No clubbing, cyanosis, or deformity. SKIN: Warm and dry. Normal turgor. No rash or lesions appreciated. PSYCH: Mood, affect, and interaction is appropriate to the setting. Medical Decision Making Number and Complexity of Problems Differential Diagnosis: Atrial fibrillation, SVT, anxiety MDM Data External documents reviewed: Not applicable My EKG interpretation: Not applicable My CT interpretation: Not applicable My X-ray interpretation: Not applicable My Ultrasound interpretation: Not applicable Decision rules/scores evaluated: Not applicable Discussed with: Not applicable Treatment and Disposition ED Course: 67-year-old male with multiple complaints of palpitations in the past the emergency department chief complaint of palpitations. He has been evaluated including admission for this several times. He has never had documented arrhythmia. There is a normal sinus rhythm here today however he is significantly anxious. Multiple I have seen the patient for this complaint several times in the past. This does appear to be his typical presentation. Cardiac work-up is initiated. Patient agrees with this plan. We will watch him on telemetry monitoring. Lab work is reviewed and unremarkable. Does have a UTI by urinalysis. We will treat this with Keflex. First dose given in the ED. Telemetry monitoring was reviewed. There is no arrhythmias. He has worn a Holter monitor in the past. He has had cardiology evaluation twice for this. There was never any findings. Instructed follow-up with his rad technologist and primary care doctor. All questions were answered. Patient was discharged home. Shared decision making: As above Code status: Not addressed during this visit Assessment/Plan Acute UTI (N39.0: Urinary tract infection, site not specified) Palpitations (R00.2: Palpitations) Orders: cephalexin, 500 mg = 1 cap(s), Oral, q12hr, X 7 day(s), # 14 cap(s), Refills(s) 0, Pharmacy: [id number], 170, cm, 06/05/22 17:40:00 EST, Height/Length Dosing, 89.4, kg, 06/05/22 17:40:00 EST, Weight Dosing cephalexin, 500 mg = 1 cap(s), Cap, Oral, Once, Stop date 06/05/22 18:38:00 EST, STAT, Start date 06/05/22 18:38:00 EST, 06/05/22 18:38:00 EST Automated Diff Basic Metabolic Panel CBC w/ Auto Diff ED Cardiac Monitoring eGFR Oxygen Saturation Oxygen Therapy PT & PTT Saline Lock Insert Troponin 0 Hr. UA With Cult Reflex Urine Culture Medications Administered Given Keflex 500 mg Cap, 500 mg, Oral Disposition Plan Patient Discharge Condition Stable Discharge Disposition Home Discharge Prescription List Prescriptions Keflex 500 mg Cap, 500 mg= 1 cap(s), Oral, q12hr Follow-up With When Contact Information Mitch Alberts In 3 days 06/08/2022 EST [address] [place] [address]- [phone] Business (1) Additional Instructions: Call the office of your rad technologist to establ (more content not included)... Normal [facility] Comment on above: Result Comment: Elec tronically Signed By: Alec Fountain DO\.br\Date and Time Signed: 06/05/22 18:58 EST ED Patient Education Noteon 06-05-2022 ED Patient Education Note Emergency Medicine Palpitations Palpitations are feelings that your heartbeat is irregular or is faster than normal. It may feel like your heart is fluttering or skipping a beat. Palpitations are usually not a serious problem. They may be caused by many things, including smoking, caffeine, alcohol, stress, and certain medicines or drugs. Most causes of palpitations are not serious. However, some palpitations can be a sign of a serious problem. You may need further tests to rule out serious medical problems. Follow these instructions at home: Pay attention to any changes in your condition. Take these actions to help manage your symptoms: Eating and drinking ? Avoid foods and drinks that may cause palpitations. These may include: ? Caffeinated coffee, tea, soft drinks, diet pills, and energy drinks. ? Chocolate. ? Alcohol. Lifestyle ? Take steps to reduce your stress and anxiety. Things that can help you relax include: ? Yoga. ? Mind-body activities, such as deep breathing, meditation, or using words and images to create positive thoughts (guided imagery). ? Physical activity, such as swimming, jogging, or walking. Tell your health care provider if your palpitations increase with activity. If you have chest pain or shortness of breath with activity, do not continue the activity until you are seen by your health care provider. ? Biofeedback. This is a method that helps you learn to use your mind to control things in your body, such as your heartbeat. ? Do not use drugs, including cocaine or ecstasy. Do not use marijuana. ? Get plenty of rest and sleep. Keep a regular bed time. General instructions ? Take aibq-xyf-fatihpy and prescription medicines only as told by your health care provider. ? Do not use any products that contain nicotine or tobacco, such as cigarettes and e-cigarettes. If you need help quitting, ask your health care provider. ? Keep all follow-up visits as told by your health care provider. This is important. These may include visits for further testing if palpitations do not go away or get worse. Contact a health care provider if you: ? Continue to have a fast or irregular heartbeat after 24 hours. ? Notice that your palpitations occur more often. Get help right away if you: ? Have chest pain or shortness of breath. ? Have a severe headache. ? Feel dizzy or you faint. Summary ? Palpitations are feelings that your heartbeat is irregular or is faster than normal. It may feel like your heart is fluttering or skipping a beat. ? Palpitations may be caused by many things, including smoking, caffeine, alcohol, stress, certain medicines, and drugs. ? Although most causes of palpitations are not serious, some causes can be a sign of a serious medical problem. ? Get help right away if you faint or have chest pain, shortness of breath, a severe headache, or dizziness. This information is not intended to replace advice given to you by your health care provider. Make sure you discuss any questions you have with your health care provider. Document Released: 05/13/2001 Document Revised: 06/28/2018 Document Reviewed: 06/28/2018 [employer] Patient Education ? 2019 [employer]. Obstetrics and Gynecology Urinary Tract Infection, Adult A urinary tract infection (UTI) is an infection of any part of the urinary tract. The urinary tract includes the kidneys, ureters, bladder, and urethra. These organs make, store, and get rid of urine in the body. Your health care provider may use other names to describe the infection. An upper UTI affects the ureters and kidneys (pyelonephritis). A lower UTI affects the bladder (cystitis) and urethra (urethritis). What are the causes? Most urinary tract infections are caused by bacteria in your genital area, around the entrance to your urinary tract (urethra). These bacteria grow and cause inflammation of your urinary tract. What increases the risk? You are more likely to develop this condition if: ? You have a urinary catheter that stays in place (indwelling). ? You are not able to control when you urinate or have a bowel movement (you have incontinence). ? You are female and you: ? Use a spermicide or diaphragm for control. ? Have low estrogen levels. ? Are . ? You have certain genes that increase your risk (genetics). ? You are sexually active. ? You take antibiotic medicines. ? You have a condition that causes your flow of urine to slow down, such as: ? An enlarged prostate, if you are male. ? Blockage in your urethra (stricture). ? A kidney stone. ? A nerve condition that affects your bladder control (neurogenic bladder). ? Not getting enough to drink, or not urinating often. ? You have certain medical conditions, such as: ? Diabetes. ? A weak disease-fighting system (immunesystem). ? Sickle cell disease. ? Gout. ? Spinal cord (more content not included)... Normal [facility] ED Patient Summaryon 023 ED Patient Summary [address] [address] Patient Discharge Instructions Person Information Name: NORY DSOUZA Age: 67 Years Arrival Date: 06/05/2022 17:35:52 Discharge Diagnosis: Acute UTI; Palpitations Primary Care Physician: ARNOL FISCHER, DOUG Blackwood Provider Information Primary Provider: Alec Fountain DO Advanced [employer] Harvester:None The exam and treatment you received in the Emergency Department were for an urgent problem and are not intended as complete care. It is important that you follow up with a doctor, nurse practitioner, or physician?s executive chef assistant for ongoing care. If your symptoms become worse or you do not improve as expected and you are unable to reach your usual health care provider, you should return to the Emergency Department. We are available 24 hours a day. NORY DSOUZA has been given the following list of patient education materials, prescriptions and follow-up instructions: Follow-up Instructions: With: Address: When: Mitch Alberts [address] [place] [phone] [facility] () In 3 days 06/08/2022 Comments: Call the office of your rad technologist to establish with the rad technologist listed here to discuss your palpitations. With: Address: When: DOUG ARTEAGA [address] [place] [address] [place], [place] [id number] [facility] () In 3 days 06/08/2022 Comments: Call the office of your primary care doctor to arrange for follow-up within the above-stated timeframe. Follow-up with your primary care doctor about this ED visit. You should review your labs, imaging, and diagnoses from this ED visit with your primary care physician. If you were prescribed medications you should discuss possible side-effects and drug interactions with your pharmacist. Call 911 or go to the nearest Emergency Department if you develop any new or worsening symptoms. Seek immediate medical attention if you develop: worsening chest pain, new chest pain, nausea, vomiting, weakness, numbness, tingling, excessive sweating, shortness of breath, difficulty breathing, loss of motion in your arms or legs, or any new or worsening symptoms. In the event that this physician does not participate in your insurance network, please consult with your insurance company to find a nearby participating provider. Patient Education Materials: Urinary Tract Infection, Adult; Palpitations A MESSAGE TO ALL PATIENTS REGARDING OPIOIDS PRESCRIPTION OPIOIDS: WHAT YOU NEED TO KNOW Prescription opioids can be used to help relieve npxxivtr-bj-znosbf pain and are often prescribed following a surgery or injury, or for certain health conditions. These medications can be an important part of the treatment but also come with serious risks. It is important to work with your healthcare provider to make sure you are getting the safest, most effective care. WHAT ARE THE RISKS AND SIDE EFFECTS OF OPIOID USE? Prescription opioids carry serious risks of addiction and overdose, especially with prolonged use. An opioid overdose, often marked by slowed breathing, can cause sudden . The use of prescription opioids can have a number of side effects as well, even when taken as directed: ? Tolerance?meaning you might need to take more of the medication for the same pain relief ? Physical dependence?meaning you have symptoms of withdrawal when a medication is stopped ? Increased sensitivity to pain ? Constipation ? Nausea, vomiting, and dry mouth ? Sleepiness and dizziness ? Confusion ? Depression ? Low levels of testosterone that can result in lower sex drive, energy, and strength ? Itching and sweating RISKS ARE GREATER WITH: ? History of drug misuse, substance use disorder, or overdose ? Mental health conditions (such as depression or anxiety) ? Sleep apnea ? Older age (65 years and older) ? Avoid alcohol while taking prescription opioids. Also, unless specifically advised by your health care provider, medications to avoid include: ? Benzodiazepines (such as Xanax or Valium) ? Muscle relaxants (such as Soma or Flexeril) ? Hypnotics (such as Ambien or Lunesta) ? Other prescription opioids KNOW YOUR OPTIONS Talk to your health care provider about ways to manage your pain that don?t involve prescription opioids. Some of these options may actually work better and have fewer risks and side effects. Options may include: ? Pain relievers such as acetaminophen, ibuprofen, and naproxen ? Some medication that are also used for depression or seizures ? Physical therapy and exercise ? Cognitive behavioral therapy, a psychological, goal-directed approach, in which patients learn how to modify physical, behavioral, and emotional triggers of pain and stress. IF YOU ARE PRESCRIBED OPIOIDS FOR PAIN: ? Never take opioids in greater amounts or more often than prescribed. ? Follow up with your p (more content not included)... Normal [facility] Monitor Recordon 06-05-2022 Monitor Record [id number] 1#1.00CD:127 Normal [facility] Monitor Record [id number] 4#1.00CD:127 Normal [facility] PT & PTTon 06-05-2022 aPTT Coag (PPP) [Time] 32.3 second(s) Normal 25.1-36.5 [facility] Comment on above: Result Comment: Para meter 15 days - 4 weeks 1 - 5 months 6 - 11 months 1 - 5 years 6 - 10 years 11 - 17 years PTT Mean: 35.4 (27.6-45.6) Mean: 33.5 (24.8-40.7) Mean: 32.4 (25.1-40.7) Mean: 31.6 (24.0-39.2) Mean: 31.6 (26.9-38.7) Mean: 31.0 (24.6-38.4) Pediatric Reference ranges were obtained from a study by Chaitanya Singh et al. prepared from 1437 samples obtained at 7 different centers using the same coagulation reagent and instrumentation as [facility]. Currently there are no coagulation studies available worldwide for children to 14 days, and no normal ranges. Heparin therapeutic range (represented by Anti-Factor Xa activity of 0.2 - 0.4 U/mL) corresponds to PTT of 56.6 - 109.0 sec. Performed By: #### 2 [id number], [id number], [id number], 8144434, [id number], [id number] ####[facility] [place] [address] INR Coag (PPP) [Relative time] 1.2 {INR} Invalid Interpretation Code [facility] Comment on above: Result Comment: INR results are specifically intended to assess patients stabilized on long-term Anticoagulation therapy suggested INR?s ?Less Intensive Anticoagulation? 2.0 ? 3.0 Conventional Range 3.0 ? 4.5 Performed By: #### 2 [id number], [id number], 5463820, 2798584, [id number], [id number] ####[facility] [address] [place] [address] PT Coag (PPP) [Time] 13.1 second(s) High 9.4-12.5 [facility] Comment on above: Result Comment: 15 d ays - 4 weeks 1 - 5 months 6 -11 months 1- 5 years 6-10 years 11 -17 years Mean: 11.2 (9.5-12.6) Mean: 11.0 (9.7-12.8) Mean: 11.0 (9.8-13.0) Mean: 11.3 (9.9-13.4) Mean: 11.7 (10.0-14.6) Mean: 11.8 (10.0 - 14.1) Pediatric Reference ranges were obtained from a study by johny Alarcon al. prepared from 1437 samples obtained at 7 different centers using the same coagulation reagent and instrumentation as [facility]. Currently there are no coagulation studies available worldwide for children to 14 days, and no normal ranges. Performed By: #### 2 144356, 71236508, 3489761, 9227565, [id number], [id number] ####[facility] [address] [place] [address] Pre-Arrival Noteon 3 Pre-Arrival Note Pre-Arrival Summary Name: , carmelo Current Date: 06/05/2022 17:36:51 EST Gender: Male Date of : Age: 67 Pre-Arrival Type: EMS ETA: 06/05/2022 17:49:00 EST Primary Care Physician: Presenting Problem: Pre-Arrival User: Referring Source: Location: PA Completion Date/Time: 06/05/2022 17:19:00 [facility] Emergency Department Pre-Hospital Report Form Vital Signs: 140/80bp 66p 16rr 98%RA 12 lead normal Pre-Hospital Report:c/c palpitations on ems arrival Treatment in Route: refused iv Response to Treatment: Misc. Issues: Normal [facility] Troponin 0 Hr.on 06-05-2022 Troponin I.cardiac [Mass/Vol] 5.60 pg/mL Low 15.90-38.40 [facility] Comment on above: Result Comment: The 95% CI (Confidence Interval) PPV (Positive Predictive Value) for myocardial infarction in females is 38 pg/mL, in males 51 pg/mL. The results should be used in conjunction with clinical conditions of myocardial infarction. (Access High Sensitivity Troponin I Instructions For Use, ITema, December 2017) Performed By: #### 2 [id number], [id number], 4157992, 1591293, [id number], [id number] ####[address] [place] [address] UA With Cult Reflexon 2022 Bacteria LM Ql (Urine sed) 3+ /HPF Abnormal Trace [facility] Comment on above: Performed By: #### 1 [id number], [id number] ####[address] [address] Bilirubin Ql (U) Negative Normal Negative [facility] Comment on above: Performed By: #### 1 [id number], [id number] ####[address] [address] Clarity (U) CLEAR Normal Clear [facility] Comment on above: Performed By: #### 1 [id number], [id number] ####[address] [address] Color (U) YELLOW Normal Yellow [facility] Comment on above: Performed By: #### 1 5259835, 6354799 ####[address] [address] Epithelial cells.squamous LM.HPF (Urine sed) [#/Area] 0-2 Normal 0-2 [facility] Comment on above: Performed By: #### 1 [id number], [id number] ####[facility] [address] [place] [address] Glucose Test strip (U) [Mass/Vol] Negative Normal Negative [facility] Comment on above: Performed By: #### 1 [id number], 3870995 ####[facility] [address] [place] [address] Hemoglobin Ql (U) TRACE Abnormal Negative [facility] Comment on above: Performed By: #### 1 0993803, 7342201 ####[facility] [address] [place] [address] Ketones (U) [Mass/Vol] Negative Normal Negative [facility] Comment on above: Performed By: #### 1 4048889, 6304073 ####[facility] [address] [place] [address] Dixon.plasma/Lithiu m.RBC (Bld) [Mass ratio] 0-3 Normal 0-3 [facility] Comment on above: Performed By: #### 1 4557655, 1514369 ####[facility] [address] [place] [address] Nitrite Ql (U) Positive Abnormal Negative [facility] Comment on above: Performed By: #### 1 8093344, 3348945 ####[facility] [address] [place] [address] pH (U) 6.5 [pH] Invalid Interpretation Code 5.0-9.0 [facility] Comment on above: Performed By: #### 1 5916849, 0351901 ####[facility] [address] [place] [address] Protein (U) [Mass/Vol] Negative Normal Negative [facility] Comment on above: Performed By: #### 1 9764049, 3853134 ####[facility] [address] [place] [address] Specific gravity (U) [Rel density] 1.010 Invalid Interpretation Code 1.005-1.030 [facility] Comment on above: Performed By: #### 1 5887414, 1986849 ####[facility] [address] [place] [address] Type of Urine collection method Clean Catch Normal [facility] Comment on above: Performed By: #### 1 6171075, 8053339 ####[facility] [address] [place] [address] Urobilinogen Qn (U) 0.2 {Tawny'U}/dL Normal 0.0-1.0 [facility] Comment on above: Performed By: #### 1 3906614, 6699212 ####[facility] [address] [place], [place] [address] WBC Auto Ql (U) 1+ Abnormal Negative [facility] Comment on above: Performed By: #### 1 5794685, 7636908 ####[facility] [address] [place], [place] [address] WBC LM.HPF (Urine sed) [#/Area] 0-5 Normal 0-5 [facility] Comment on above: Performed By: #### 1 8018885, 3637423 ####[facility] [address] [place], [place] [address] eGFRon 06-05-2022 GFR/1.73 sq M.predicted among blacks MDRD (S/P/Bld) [Vol rate/Area] mL/min/{1.73_m2} Normal >=59 [facility] Comment on above: Order Comment: Order added by Discern Expert. Result Comment: eGFR is race adjusted. AA=. Performed By: #### 2 599381, 66095384, 8610273, 0677063, 68824677, 33383306 ####[facility] [address] [place] [address] GFR/1.73 sq M.predicted among non-blacks MDRD (S/P/Bld) [Vol rate/Area] mL/min/{1.73_m2} Normal >=59 [facility] Comment on above: Order Comment: Order added by Discern Expert. Result Comment: General Maintenance Engineer anai kidney disease could be indicated at eGFR's of less than 60 mL/min/1.73m2. Kidney failure is indicated at less than 15 mL/min/1.73m2. Performed By: #### 2 [address], 69931835, 3168798, 3094651, 52004441, [id number] ####[place] [address] [address] Coding Summary.on 05-18-2022 Coding Summary. CD:[id number] Gh0bWw+PGhlYWQ+PE1FV DIhL12gxVIpfL7GJ4pZG V3ITAGQFDGCTJ4SGP2cy BW2DFcyD4HvmjAy UuznzOWyZN08TXl7FVX3 qSgyLNdaiS8tjAGkQ4c4 GuXpXW90iR90NSnoKLUu HzB2QaEciqkdmNZs W7zcRpMzhLDzZkw+PHRh YmxlIHdpZHRoPScxMDAl UzIncIdjTJ7qLu5xSWWh LWNvbGxhcHNlOiBj d1tzOFJzJNiyZR8xhVzy I8SaqWS2LWVhf6c4Xd99 dHI+EJMpNXB4jXxeASxn b139LrTmj9gbLZA5 tGNmEXxsDKT0M53on3L2 IZZbZBFkAKO1hRK1vV6p hCdpllepL8WztSVzWpK4 DOF8bDHwsN7wtBij vdqbmT7sEpz+K70WGY3N OGXLXI0TYhi4P3MaNjbg dHI+LJ03FADqYM95eDQv xXRco0nezKc8SyMf EWKnQRS9eDtdUDaxe8Ca TMLgP60qgDTwb1O6CLPa sJwxfOOnYnUyoBI2qW8c YRgssrpye9ilhkwq Bmwvh9iwul50bK77Q26b CMyyTARdUUM8YSEkDFYk pAtngg5hfN7bKl1+IDxj j1xbv4ghuRw1XiDo XBIxrjUinMphKVE7c0Bj Ig64S8TtvVdap4HiLnq4 vn02oYQkj9Y8zWP0OQdv UWFtlH6kLIgeBsK1 EWHdTmHtaV08sADfLRah Ne4lqBtjmZppSI3cJAPg jinvWPMdyP4wJPBayXLw dEijSC2tYRFcpgjo c700RbHyKQH5NDKruTAm C2OhbT2zMkIaMSVlZYCr N8WvkHBiFQciK278EYdf KfW8NYSsbhXgX8Ij JBThtKbvZgH2j0O5Rr8C h5QmypjoFCT8QItfTEGc MiYdVdXaKyC2V2PdFis9 VLUqmPplOY3uD9Ci FMIerrycwydzxQC3ZZKl YTEezE84qBEyFIrrJw1m r9B8v531AQZsCWDvzJ76 Ok3xkUicLYUazSEC kS9acfjrx4aokspcLrLp VTCvZTt8RNk9LFQoqLnu KnFfADR3WzP5AFI3rPFn iW8etBilenokxY2w Oyc+U90qsP5yNTI6PEU0 pznsCSAsfuMrKS63WH48 C0FtTvnlfZUprPK+PGRp zdGqvZshVV7iEkPa z4vhk9LcMRhgF6FnFURg VRadTxl7PTRwSOK6eAE6 mQ6dCXMuWErhg4J0tWL2 V8BbdzIcal4ff3je BUDhXBuoY90puEDmk2Y0 MTYttXN4THDjdHmjVnTy dL39Asz+XKJlaLhjw0Bu Qxfmg0nht2uzyQd4 IjMwJSIgdmFsaWduPSJ0 a1FxSo72M69sXGaiKHGo KKChWDErFVDfaYmmwy0y pH5hDc4+PGNvbCB3 cAM4aZ8gLDCvUvA3QKik E308MmZupVFtVpdey6wl x5lkmZk3KiGmGTWnvfCt zZblUHU0g4ObGc52 T38gKGmuNZAfJBXbZULm MRUxoIugjp3ooY1fPm1+ CG4ou6xvty22vN09eUM+ TPGbNHE1dTzqBVfp BNPnnX1dCLtxHyE1GQDu PtDtzC00yVRkHYxpRx5v zAxkgRvbSC0wTPTdctws o117PpAlc5zcTAPg pXIaQDfvJUK0Q37zd5S4 FHYgUKXkSYA8cHT3kS1f bGlnbjogbGVmdDsgdmVy uEvcGOhgPOuhX706 IHRvcDsnPlBhdGllbnQg AaTuDNz2V6NjZsr7OABg aRleMK8kfGXmLPrtLf0w aHrcmHejSV5jOGNl wthxq597XqPgq3snDLTe iUBbPUbpUXI1C22sl9Z2 OZYnIRVbFJF7bNQ3zE7w bGlnbjogbGVmdDsg qzLqqCfiLXqoDXwyT409 IHRvcDsnPkJpcnRoIERh fPV3ZR60SS76jBSzy8L8 cPP0A9VdZXUhwiod extruNI3ICNuYCCcxX30 Pc9nvRtvWr4vOPBpNDU9 JCIkoUYtK1CpwZ1sVuVt FWNxKVRaY7JsoNQp BRysG565FAjzOpK2COWo hiQdH6LpJBAysIasLtH9 k7F4Rq8DS7Q2SJ06HB08 sMLfx3G5sFF8L0Md VEIkfdhnxpyobBP5LJNa EVTehY27Zt1djBdjVg5i BXDhDCI8TDRdrDMjL9Kt aT8cCgHvNSXiZXUg S9KzbFEgZWbeY214SGbq RdO6DOQqenTpV1NaNIKo eQmxNnA1c3L8Fs3AHGx2 RS53UW64lWUfj6S6 qBB5K2JlOXUqzhjtfcno iWG9KOBvQQFomY30Pu3m kYttVc8rMSMfGDD4EUAc yTJhK2MmjW1nZxPh WYVnIHXhO9HxhSOuJIlm F275TWwaCkT6XFAgefEm N6JfSLDwoIkwEkX0c2A9 Ye6LELArZO94IKU7 aFG2SE02CL03I9AqUsek dGFibGU+PHRhYmxlIHdp ZHRoPScxMDAlJyBzdHls KW9qLa5qEIYpDAIe lFcwkIFqXhQrk2jmTYHh AVvkFN1tlGqyO6VcwRM8 IAZbt9j5Ff60O95zB8Am dXA+LNHwnOX2uUW0 sG4vXaZjWfW6ABitI001 AhAgrBVhAlwwe7xwf6qv jGl8XhS8CQVjqqObjQat MYJ4f2MlXf20H81i IHdpZHRoPSIxNSUiIHZh nGhzcl2etM4wMh3+PGNv pJC5zYS6rY6iQeVhNuV0 SEzkM868SxLdbFFq Nirgc5dlc7osgBb3IxXb KWOlqhCwcBufADN1j9Ev Zv60Z6EqpTwdq5FiHpy9 cs94zRZew1P3eUO1 E4LsNZNxjncopZXhdCjf PO8wWNPdblxuSINzqC4w JSFeH7i4KvFyKkR9GWmu Z3RdyiJ3EKGrvLNc UAoqXZU4C68gl3D3XQZx KIIwWOP7aDV3fC0doGhk bjogbGVmdDsgdmVydGlj UVfsFIxuN809VSFi oMtxSGPwoF8mKEQnvNLp bEzfFW9eLKJjwtibLcDF SEFGRkVSLCBNSUNIQUVM THP2N1VxMym8ZPXs nLsuEG2eeWQoUOznKa6t lLjyvNgjLZ7lWDMqfsrz LGQilK9pEPSgfXDynQdi EN1sBRFvcdjwi864 VvUsSDT0KAFusCOlQ1Rs rY6fWkVfYIJcFVSiE1Gq xJFlMZtnQ331LJgsSkI2 VAHjxpNbB5OdTOXa rEigWjJ5d4F9Up0mHC9m SK8vXWPxJE74QH48kVDz i0L0fNG8K6NgUCYhjtlc cfpuvME1QPStWZEp vG28pYEwUAnqIi6kd7N6 y608JMHeBTAcaM47Kv4w vKzvFVKdcKOTgB7nnioa d8ybtmevRzQnFOGx ZCj2RRo6BNQqgHibYwMf SYU4NqL0HUO6vBNpnK8f yRwdaotskS3aUvu+Njkg TKHicwQ3R2GdOgy2 WXPuzYyiIR7pmMVcWHxd Ca0mwTebyOcgXU4kASGt nodhZLZjjG7bCFXqpKJf lYkqCN2sWHFcuuqa y661LaVyPUC1QQOtnDBq A7YwjT3fQvGwIMSkZKXy K2JkcNFeSOdeA342DVgu UkE5EZEfapRdL4Ae WYCxwZyeGeO3w2V0Wy5I ZDfmON23RG89tDMei3W5 uBD8W8QiYVAkvkedzhoj xDL2KNGiWBKksH56 wDRxHHluIj0tl9G8d914 XJOzLKTbxH60Ul4euUaz EQYhlPGTxG2oksdpa9zz cjogIzAwMDAwMDt0 YTk4LVVbfCrcYxZlFPV7 EdN1FYU7zIXwtQ6llRes mhkzgZ9uAhr+ME7fylaj xdS9YU73CA17X4Ob PjwvdGFibGU+PHRhYmxl IHdpZHRoPScxMDAlJyBz cKrfOS5jMq2cPTNgCJUm vOrbmLMpBhSpu8ha RRBnJAofTB1tzDiqT3Dr hBW1JAXzi0d0Xx89N11f Z6JlnMQ+GHDeeFS4fSV6 fE2gZoQcNoC1THda M571QcKpiGRnNfvmr6pc m0kdfRi0QdKvLPYzgfDx sQvhCJL0a4YvVt74P01i IHdpZHRoPSIyMCUi TVGpqIarkf7riO5fDk2+ COWqnYE7wVD5dS1dXsMs ZqO3IOmtC462BmPqbVJz FaadL03dO3MztBN+ CTFxFfz6THYxdZtxYQ8i bWDvTPgxFy4jEUC3NqYj LhAnJFroG8XpLMMscnop slkaiPZ3UQHlUSTh fS90Wq1otLliTc2dWHXy QVB7PQYlbLJxU4RfpH8f PuAlNURnRLDoH0KewJRd FAtwJ402KBcoDzE9 RVUhziYyN4GnHBQwxYkq GlE2b0W5Qc2OsKwuaFYo HW5gHtHpLFt9P8AwLor5 NMAcfAapJS6eqYYc GOswAe9mnBrmwNnoNU7n DWVxarmwu201CgRkr6dk QFFraBHwQVmcIQU0G86d d2T5BJFcXAIdGTD6 hOE4gG1fnRnqkbcddFFd dDsgdmVydGljYWwtYWxp Q768XOWoxPqpQhDLXyz3 V8GzStb6ZJPgeBuo TJ4vbBAfYJwiNa4esJyc hRzkIN2cPKKxfntle815 DuBqp4wtEZKklGEvXBnd ANH3G60kp9X4NNSi TSMgBPD8hAE3cA0hnOni bjogbGVmdDsgdmVydGlj GSugTZszD243EIKzkRmm Il2QYdz8B0BdNih7 MVKctVqkOT4ugBSwWBpz Pu0ytRvrjQoxLS5mXKZn lafea968PrZno7npCGHw wVSxACxuJOP7M82b z8G8MLTjBHJnADB5lNR8 yS8tjQluxyeizOQufGza vsJixIarQInrWTfzH757 IHRvcDsnPlBheWVy OjwvdGQ+WG98kp36P4Bv KozeGlx7WWExZOD2zCX4 hL2nAJFbJTlqn7F7zPV4 R2UopvBomg9vv6ti YXBz (more content not included)... Normal [facility] Discharge Instructionson Discharge Instructions [id number] 4#1.00CD:127 Normal [facility] ED Clinical Summaryon 2021 ED Clinical Summary [place] [id number] ED Clinical Summary Person Information Name: NORY DSOUZA Tarsha/[facility] Age: 67 Years : 1955 Sex: Male Language: Lebanese PCP: DOUG ARTEAGA MD Marital Status: Visit Id: Visit Reason: Medical problem - minor; Tachycardia; TACHYCARDIA Speciality: Acuity: 3 Enc Type: Emergency Med Service: Emergency Arrival: 05/15/2022 19:43:33 Discharge: 05/16/2022 00:17:23 LOS: 000 04:34 Checkin: 05/15/2022 19:43:33 Checkout: 05/16/2022 00:17:23 Dispo Type: Home (Routine DC) EVENTS: Event Name Event Status Request Date/Time Start Date/Time Complete Date/Time Arrive Complete 05/15/2022 19:43:33 05/15/2022 19:43:33 05/15/2022 19:43:33 Document Home Meds Request 05/15/2022 19:43:33 Triage Complete 05/15/2022 19:43:33 05/15/2022 19:50:37 05/15/2022 19:50:37 Bed Assign Complete 05/15/2022 19:44:25 05/15/2022 19:44:25 05/15/2022 19:44:25 Dr Exam Complete 05/15/2022 19:44:25 05/15/2022 19:46:29 05/15/2022 19:46:29 RN Exam Complete 05/15/2022 19:44:25 05/15/2022 19:52:26 05/15/2022 19:52:26 Registration Complete 05/15/2022 19:46:29 05/15/2022 20:18:19 05/15/2022 20:18:19 Dr Exam Complete 05/15/2022 19:46:45 05/15/2022 19:46:45 05/15/2022 19:46:45 EKG Complete 05/15/2022 19:46:48 05/15/2022 19:51:04 Pending Labs Complete 05/15/2022 19:47:36 05/15/2022 20:22:52 Lab Complete 05/15/2022 19:47:36 05/15/2022 20:10:42 Fall Risk Request 05/15/2022 19:52:26 Pending Labs Complete 05/15/2022 19:56:34 05/15/2022 19:56:34 05/15/2022 20:10:44 Lab Complete 05/15/2022 19:56:34 05/15/2022 19:56:34 05/15/2022 20:10:44 Pending Labs Complete 05/15/2022 20:05:24 05/15/2022 20:05:24 05/15/2022 20:05:30 Lab Complete 05/15/2022 20:05:24 05/15/2022 20:05:24 05/15/2022 20:05:30 Reg Complete Request 05/15/2022 20:18:19 Pending Labs Cancel 05/15/2022 20:26:09 05/15/2022 20:28:26 Lab Cancel 05/15/2022 20:26:09 05/15/2022 20:28:26 Pending Labs Complete 05/15/2022 20:28:47 05/15/2022 20:28:47 05/15/2022 20:40:18 Lab Complete 05/15/2022 20:28:47 05/15/2022 20:28:47 05/15/2022 20:40:18 Pending Labs Request 05/15/2022 21:29:41 EKG Complete 05/15/2022 21:29:41 05/15/2022 21:47:05 Patient Care Request 05/15/2022 21:29:41 X-Ray Complete 05/15/2022 21:29:41 05/15/2022 21:51:17 05/15/2022 21:57:08 Meds Admin Complete 05/15/2022 21:29:41 05/15/2022 21:40:41 Meds Admin Request 05/15/2022 21:40:39 Wet Read Request 05/15/2022 21:57:08 Meds Admin Complete 05/15/2022 23:32:32 05/16/2022 00:16:48 Discharge Complete 05/15/2022 23:40:25 05/16/2022 00:17:31 05/16/2022 00:17:31 Transfer Complete 05/16/2022 00:17:31 05/16/2022 00:17:31 05/16/2022 00:17:31 ADDRESS: [address] [place] [id number] [facility] DOC NOTES: MEDICAL INFORMATION: Prescriptions Given: Medications to Continue with No Changes Other Medications amlodipine (amLODIPine 2.5 mg Tab) aspirin (aspirin 81 mg oral tablet) 1 Tablets By Mouth every day. atorvastatin (Lipitor 10 mg oral tablet) 1 Tablets By Mouth every day. calcium-vitamin D (calcium (as citrate)-vitamin D 500 mg-200 intl units oral tablet, chewable) 500MG/400MG By Mouth every day. ciprofloxacin (Cipro 500 mg Tab) By Mouth every 12 hours. dexamethasone (dexamethasone 0.5 mg oral tablet) 1 Tablets By Mouth every day. lansoprazole (Prevacid 30 mg Cap-EC) 1 Capsules By Mouth every day. Take one capsule by mouth every day. metoprolol (Lopressor 25 mg oral tablet) 1 Tablets By Mouth 4 times a day. Refills: 0. multivitamin with minerals (One A Day Men 50 Plus) 1 TAB By Mouth every day. pravastatin (pravastatin 40 mg Tab) 1 Tablets By Mouth at bedtime. PATIENT EDUCATION INFORMATION: Instructions: Palpitations, Pmol-pz-Pklu; Nonspecific Chest Pain, Adult, Gqhv-wm-Dzlp Follow up: With: Address: When: ARNOL FISCHER, DOUG Blackwood, FAM [address] [place] [address] In 2 days 05/17/2022 DIAGNOSIS: 1:Palpitations with regular cardiac rhythm; 2:Chest pain Normal [facility] ED Note-Physicianon 05-16-20 ED Note-Physician Basic Information Time Seen: Jose Daniel Silva DO 05/15/2022 19:46 Chief Complaint feeling like his heart is racing, relates it to anxiety. Stressed about the upcoming holidays History of Present Illness Patient is a 67-year-old male with PMHx significant for HTN, HLD, prostate cancer, dysrhythmia (on metoprolol, not on anticoagulation) who presents to the ED today via EMS for evaluation of palpitations. He said he has a pulse ox at home and prior to calling EMS he felt palpitations put on his pulse ox and noted his heart rate to be in the 150s. He said it quickly normalized back down to the 90s. Tells me he has had multiple episodes of this in the past. And that he had 3 episodes of his heart racing since 530 this morning. Last less than a few minutes each time. None of these episodes are associated with chest pain nor shortness of breath. In the past when this happened has followed up with cardiology and tells me he has worn a heart monitor. He said he last had an echo or stress test prior to COVID. Does admit problems with anxiety but does not want to take antianxiety medication. Patient denies any chest pain, shortness of breath, weakness, syncope, lightheadedness or dizziness, nausea, vomiting, diarrhea, jaw pain, arm pain. Does not drink caffeinated beverages. Denies problems with thyroid. Is a former smoker. Patient denies history of blood clot. Review of Systems A 10 point review of systems is negative except as noted above. Medical and Surgical History: Reviewed and noted Social history: Lives at home Substance use: Former smoker Physical Exam Vitals & Measurements T: 36.5 ?C(Oral) HR: 80(Apical) RR: 28 BP: 130/99 SpO2: 94% HT: 170 cm WT: 89.4 kg BMI: 30.93 Appearance: Appears younger than stated age, nontoxic-appearing, alert and awake. Speaking in complete sentences. Vital signs reviewed, tachypneic otherwise WNL Skin: Warm, dry, intact. Normal for age and ethnicity. No ecchymosis, open wounds, or rashes. Head: Normocephalic, atraumatic NECK: Supple. Nml Inspection with good ROM, no JVD Eyes: PERRL. Vision grossly intact. ENT: Buccal mucosa pink and moist. Hearing grossly normal Respiratory: Tachypnea. Breath sounds diminished bilateral bases. No wheezes, rhonchi, rales. Cardiovascular: RRR, no murmurs. 2+ symmetrical radial and dorsalis pedis pulses. Normal cap refill. No LE edema. Chest wall: Normal chest wall appearance and motion. Abdomen/GI: Soft, nontender, nondistended. No guarding, rigidity, rebound tenderness. NABS x4. Neuro: Alert and awake, speech Clear, cranial nerves grossly intact. No focal neurological deficit observed. Normal sensation to light touch in all 4 extremities. Normal gait. Extremities: No deformity noted on exam. Patient spontaneously moves all 4 extremities. Psych: Cooperative. Normal Mood. Affect appropriate to context. Procedure Heart Score for Major Cardiac Event History: Example factors for history - pattern of chest pain, onset, duration, relation with exercise, stress or cold, localization, concominant symptoms. reaction to sublingual nitrates, [] Highly suspicious +2 [] Moderately suspicious +1 [x] Slightly suspicious 0 EKG: [] Significant ST-Depression +2 [x] Non specific repolarization disturbance +1 [] Normal 0 Age: [x] >= 65 +2 [] 45-65 + 1 [] <45 0 Risk Factors: (HLD, HTN, DM, Cigarette Smoking, Pos Family Hx, Obesity) [x] >3 risk factors or hx of atheroslerotic disease + 2 [] 1-2 risk factors + 1 [] No risk factors known 0 Troponin: [] >= 3X normal + 2 [] 1-3X normal + 1 [x] <= Normal 0 [] 0-3 Points 0.9 - 1.7% risk of major adverse cardiac event in 6 weeks [5] 4-6 Points 12-16.6% risk of major adverse cardiac event in 6 weeks [] 7-10 Points 50-65% risk of major adverse cardiac event in 6 weeks [] 0-3 Points with 2 sets of negative cardiac markers <1% risk of major adverse cardiac event in 30 days. Medical Decision Making Patient is a 67-year-old male presents to the ED for evaluation of palpitations. On arrival heart rate is in the mid 80s. He is tachypneic but otherwise well-appearing. On auscultation he has diminished sounds at the bilateral bases. Is not having any chest pain. Will order routine labs including a troponin and magnesium. Patient to undergo ECG. 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 ECG shows sinus rhythm with possible previous lateral and inferior wall [place] of indeterminate age. Heart score is a 5. Initial troponin is low. CBC with stable thrombocytopenia. PT prolonged. Electrolytes normal. I went in to discuss lab findings with patient and he states that roughly half hour ago he had an episode of chest pain that lasted roughly 2 minutes. He describes it as a dull ache that he localizes to his mid sternum. Radiated across both sides of his c (more content not included)... Normal [facility] Comment on above: Result Comment: Elec tronically Signed By: Briana Howe PA-C\.br\Date and Time Signed: 05/15/22 23:40 EST\.br\Electronically Co-Signed By: Briana Howe PA-C\.br\Date and Time Co-Signed: 05/15/22 23:55 EST\.br\Electronically Co-Signed By: Jose Daniel Silva DO\.br\Date and Time Co-Signed: 05/16/22 03:29 EST ED Patient Education Noteon 05-16-2022 ED Patient Education Note Emergency Medicine Palpitations Palpitations are feelings that your heartbeat is not normal. Your heartbeat may feel like it is: ? Uneven. ? Faster than normal. ? Fluttering. ? Skipping a beat. This is usually not a serious problem. In some cases, you may need tests to rule out any serious problems. Follow these instructions at home: Pay attention to any changes in your condition. Take these actions to help manage your symptoms: Eating and drinking ? Avoid: ? Coffee, tea, soft drinks, and energy drinks. ? Chocolate. ? Alcohol. ? Diet pills. Lifestyle ? Try to lower your stress. These things can help you relax: ? Yoga. ? Deep breathing and meditation. ? Exercise. ? Using words and images to create positive thoughts (guided imagery). ? Using your mind to control things in your body (biofeedback). ? Do not use drugs. ? Get plenty of rest and sleep. Keep a regular bed time. General instructions ? Take rutj-yfs-diyksnv and prescription medicines only as told by your doctor. ? Do not use any products that contain nicotine or tobacco, such as cigarettes and e-cigarettes. If you need help quitting, ask your doctor. ? Keep all follow-up visits as told by your doctor. This is important. You may need more tests if palpitations do not go away or get worse. Contact a doctor if: ? Your symptoms last more than 24 hours. ? Your symptoms occur more often. Get help right away if you: ? Have chest pain. ? Feel short of breath. ? Have a very bad headache. ? Feel dizzy. ? Pass out (faint). Summary ? Palpitations are feelings that your heartbeat is uneven or faster than normal. It may feel like your heart is fluttering or skipping a beat. ? Avoid food and drinks that may cause palpitations. These include caffeine, chocolate, and alcohol. ? Try to lower your stress. Do not smoke or use drugs. ? Get help right away if you faint or have chest pain, shortness of breath, a severe headache, or dizziness. This information is not intended to replace advice given to you by your health care provider. Make sure you discuss any questions you have with your health care provider. Document Released: 02/22/2009 Document Revised: 06/28/2018 Document Reviewed: 06/28/2018 [employer] Patient Education ? 2019 [employer]. Gastroenterology Nonspecific Chest Pain Chest pain can be caused by many different conditions. Some causes of chest pain can be life-threatening. These will require treatment right away. Serious causes of chest pain include: ? Heart attack. ? A tear in the body's main blood vessel. ? Redness and swelling (inflammation) around your heart. ? Blood clot in your lungs. Other causes of chest pain may not be so serious. These include: ? Heartburn. ? Anxiety or stress. ? Damage to bones or muscles in your chest. ? Lung infections. Chest pain can feel like: ? Pain or discomfort in your chest. ? Crushing, pressure, aching, or squeezing pain. ? Burning or tingling. ? Dull or sharp pain that is worse when you move, cough, or take a deep breath. ? Pain or discomfort that is also felt in your back, neck, jaw, shoulder, or arm, or pain that spreads to any of these areas. It is hard to know whether your pain is caused by something that is serious or something that is not so serious. So it is important to see your doctor right away if you have chest pain. Follow these instructions at home: Medicines ? Take amnq-feo-uhmvwgn and prescription medicines only as told by your doctor. ? If you were prescribed an antibiotic medicine, take it as told by your doctor. Do not stop taking the antibiotic even if you start to feel better. Lifestyle ? Rest as told by your doctor. ? Do not use any products that contain nicotine or tobacco, such as cigarettes, e-cigarettes, and chewing tobacco. If you need help quitting, ask your doctor. ? Do not drink alcohol. ? Make lifestyle changes as told by your doctor. These may include: ? Getting regular exercise. Ask your doctor what activities are safe for you. ? Eating a heart-healthy diet. A diet and agronomy specialist (dietitian) can help you to learn healthy eating options. ? Staying at a healthy weight. ? Treating diabetes or high blood pressure, if needed. ? Lowering your stress. Activities such as yoga and relaxation techniques can help. General instructions ? Pay attention to any changes in your symptoms. Tell your doctor about them or any new symptoms. ? Avoid any activities that cause chest pain. ? Keep all follow-up visits as told by your doctor. This is important. You may need more testing if your chest pain does not go away. Contact a doctor if: ? Your chest pain does not go away. ? You feel depressed. ? You have a fever. Get help right away if: ? Your chest pain is worse. ? You have a cough that gets worse, or you cough up (more content not included)... Normal [facility] ED Patient Summaryon 022 ED Patient Summary [place] [id number] Patient Discharge Instructions Person Information Name: NORY DSOUZA Age: 67 Years Arrival Date: 05/15/2022 19:43:33 Discharge Diagnosis: 1:Palpitations with regular cardiac rhythm; 2:Chest pain Primary Care Physician: DOUG ARTEAGA MD Provider Information Primary Provider: Jose Daniel Silva DO [employer]:Briana Howe PA-C The exam and treatment you received in the Emergency Department were for an urgent problem and are not intended as complete care. It is important that you follow up with a doctor, nurse practitioner, or physician?s executive chef assistant for ongoing care. If your symptoms become worse or you do not improve as expected and you are unable to reach your usual health care provider, you should return to the Emergency Department. We are available 24 hours a day. MEETNORY has been given the following list of patient education materials, prescriptions and follow-up instructions: Follow-up Instructions: With: Address: When: ARNOL FISCHER, DOUG Blackwood, FAM [address] [place] [address] In 2 days 05/17/2022 In the event that this physician does not participate in your insurance network, please consult with your insurance company to find a nearby participating provider. Patient Education Materials: Palpitations, Cxrv-aw-Nrle; Nonspecific Chest Pain, Adult, Fadk-kk-Ljgb A MESSAGE TO ALL PATIENTS REGARDING OPIOIDS PRESCRIPTION OPIOIDS: WHAT YOU NEED TO KNOW Prescription opioids can be used to help relieve zesndhjc-bn-qijvmo pain and are often prescribed following a surgery or injury, or for certain health conditions. These medications can be an important part of the treatment but also come with serious risks. It is important to work with your healthcare provider to make sure you are getting the safest, most effective care. WHAT ARE THE RISKS AND SIDE EFFECTS OF OPIOID USE? Prescription opioids carry serious risks of addiction and overdose, especially with prolonged use. An opioid overdose, often marked by slowed breathing, can cause sudden . The use of prescription opioids can have a number of side effects as well, even when taken as directed: ? Tolerance?meaning you might need to take more of the medication for the same pain relief ? Physical dependence?meaning you have symptoms of withdrawal when a medication is stopped ? Increased sensitivity to pain ? Constipation ? Nausea, vomiting, and dry mouth ? Sleepiness and dizziness ? Confusion ? Depression ? Low levels of testosterone that can result in lower sex drive, energy, and strength ? Itching and sweating RISKS ARE GREATER WITH: ? History of drug misuse, substance use disorder, or overdose ? Mental health conditions (such as depression or anxiety) ? Sleep apnea ? Older age (65 years and older) ? Avoid alcohol while taking prescription opioids. Also, unless specifically advised by your health care provider, medications to avoid include: ? Benzodiazepines (such as Xanax or Valium) ? Muscle relaxants (such as Soma or Flexeril) ? Hypnotics (such as Ambien or Lunesta) ? Other prescription opioids KNOW YOUR OPTIONS Talk to your health care provider about ways to manage your pain that don?t involve prescription opioids. Some of these options may actually work better and have fewer risks and side effects. Options may include: ? Pain relievers such as acetaminophen, ibuprofen, and naproxen ? Some medication that are also used for depression or seizures ? Physical therapy and exercise ? Cognitive behavioral therapy, a psychological, goal-directed approach, in which patients learn how to modify physical, behavioral, and emotional triggers of pain and stress. IF YOU ARE PRESCRIBED OPIOIDS FOR PAIN: ? Never take opioids in greater amounts or more often than prescribed. ? Follow up with your primary health care provider. o Work together to create a plan on how to manage your pain. o Talk about ways to help manage your pain that don?t involve prescription opioids. o Talk about any and all concerns and side effects. ? Help prevent misuse and abuse o Never sell or share prescription opioids. o Never use another person?s prescription opioids. ? Store prescription opioids in a secure place and out of reach of others (this may include visitors, children, friends, and family). ? Safely dispose of unused prescription opioids: Find your community drug take-back program or your pharmacy mail-back program, or flush them down the toilet, following guidance from the Food and Drug Administration (www.fda.gov/Drugs/R esourcesForYou). ? Visit www.cdc.gov/drugover dose to learn about the risks of opioids abuse and overdose. ? If you believe you may be struggling with addiction, tell your health home health care social worker a (more content not included)... Normal [facility] Troponin 3 Hr.on 05-16-2022 Troponin I.cardiac [Mass/Vol] 5.10 pg/mL Low 15.90-38.40 [facility] Comment on above: Result Comment: The 95% CI (Confidence Interval) PPV (Positive Predictive Value) for myocardial infarction in females is 38 pg/mL, in males 51 pg/mL. The results should be used in conjunction with clinical conditions of myocardial infarction. (Access High Sensitivity Troponin I Instructions For Use, Marilyn Velvet, December 2017) Performed By: #### [id number] #### [facility] [address] [place] [address] XR Chest Single Viewon 05-16 XR Chest Single View Exam Date/Time: 05/15/2022 21:57 EST Reason for Exam: Chest pain Report IMPRESSION: There are no acute cardiopulmonary changes. CLINICAL HISTORY: Chest pain COMPARISON: Chest x-ray from October 02, 2021 FINDINGS: The cardiac silhouette is enlarged, similar to prior studies. The aorta is tortuous. The lungs are free of infiltrates effusions or consolidations. The bones and soft tissues are within normal limits. FINAL REPORT Dictated: 05/16/2022 8:00 am Naresh Charles MD, V. Signed (Electronic Signature): 05/16/2022 8:00 am Signed by: Naresh Charles MD, V. Transcribed by: BALDOMERO Technologist: MMM Normal [facility] Auto Diffon 05-15-2022 Basophils/100 WBC (Bld) 0.7 % Normal 0.0-2.0 [facility] Comment on above: Order Comment: Order Added by Discern Expert. Performed By: #### 1 0064059, 3064403, 4474741, 2674773, 30682403, 47291900, 1884134 ####[address] [place] [address] Basophils/Leukocytes Auto (Bld) [Pure # fraction] 0.0 E9/L Normal 0.0-0.2 [facility] Comment on above: Order Comment: Order Added by Discern Expert. Performed By: #### 1 8034509, 0937799, 0774265, 7388619, 84632836, 09677154, 2010821 ####[address] [place] [address] Eosinophils/100 WBC (Bld) 0.4 % Normal 0.0-8.0 [facility] Comment on above: Order Comment: Order Added by Discern Expert. Performed By: #### 1 4284469, 3930417, 4996878, 3657492, 71198286, 45294380, 7002141 ####[facility] [address] [place] [address] Eosinophils/Leukocyte s Auto (Bld) [Pure # fraction] 0.0 E9/L Normal 0.0-0.5 [facility] Comment on above: Order Comment: Order Added by Discern Expert. Performed By: #### 1 0488620, 2054959, 5375440, 2111990, 90126988, 45208378, 5020319 ####[address] [place] [address] Lymphocytes/100 WBC (Bld) 30.3 % Normal 14.0-50.0 [facility] Comment on above: Order Comment: Order Added by Discern Expert. Performed By: #### 1 7048908, 5410519, 0699040, 0285199, 18344050, 94208141, 3710822 ####[address] [place] [address] Lymphocytes/Leukocyte s Auto (Bld) [Pure # fraction] 2.0 E9/L Normal 1.0-4.0 [facility] Comment on above: Order Comment: Order Added by Debbi Expert. Performed By: #### 1 3968478, 0267763, 1023447, 2918441, 36869927, 36219625, 9944535 ####[address] [address] Monocytes/100 WBC (Bld) 9.5 % Normal 4.0-14.0 [facility] Comment on above: Order Comment: Order Added by Debbi Expert. Performed By: #### 1 4289393, 1250907, 3176987, 4643532, 42055072, 53075674, 8147536 ####[address] [address] Monocytes/Leukocytes Auto (Bld) [Pure # fraction] 0.6 E9/L Normal 0.2-1.0 [facility] Comment on above: Order Comment: Order Added by Debbi Expert. Performed By: #### 1 0612239, 8914998, 3597840, 0456506, 66241609, 90309419, 6726110 ####[address] [place] [address] Neutrophils/100 WBC (Bld) 59.1 % Normal 36.0-75.0 [facility] Comment on above: Order Comment: Order Added by Debbi Expert. Performed By: #### 1 1629205, 9054109, 8389464, 9022200, 02896922, 09306283, 6279313 ####[facility] [address] [place] [address] Neutrophils/Leukocyte s Auto (Bld) [Pure # fraction] 3.9 E9/L Normal 2.0-7.5 [facility] Comment on above: Order Comment: Order Added by Discern Expert. Performed By: #### 1 4818841, 9583677, 3017215, 4388464, 81093303, 65580956, 0953535 ####[facility] [address] [place] [address] BMPon 05-15-2022 Creatinine [Mass/Vol] 1.1 mg/dL Normal 0.5-1.3 [facility] Comment on above: Performed By: #### 1 5579854, 6690160, 3348345, 2882216, 61165147, 88894912, 2665929 ####[facility] [address] [place] [address] Urea nitrogen [Mass/Vol] 16 mg/dL Normal 5-21 [facility] Comment on above: Performed By: #### 1 8516046, 5489766, 3703888, 4392379, 51962262, 93416366, 5312909 ####[facility] [address] [place] [address] Urea nitrogen/Creatinine [Mass ratio] 14 No Units Normal 10-20 [facility] Comment on above: Performed By: #### 1 3037805, 9323128, 0216516, 7188252, 30500773, 18450983, 5018423 ####[facility] [address] [place] [address] Anion gap [Moles/Vol] 14 mmol/L Normal 6-16 [facility] Comment on above: Performed By: #### 1 0631628, 5331606, 6150664, 9755756, 91158227, 73833350, 4844481 ####[facility] [address] [place] [address] Calcium [Mass/Vol] 8.9 mg/dL Normal 8.9-11.1 [facility] Comment on above: Performed By: #### 1 6292986, 7971037, 4202154, 2017893, 51878166, 89226096, 0174925 ####[facility] [address] [place] [address] Chloride [Moles/Vol] 100 mmol/L Low 101-111 [facility] Comment on above: Performed By: #### 1 6808634, 9614086, 5362477, 1176793, 17489660, 58464014, 1904787 ####[facility] [address] [place] [address] CO2 [Moles/Vol] 26 mmol/L Normal 21-31 [facility] Comment on above: Performed By: #### 1 5039866, 0574784, 1598958, 8126434, 22280523, 60640796, 3614529 ####[facility] [address] [place] [address] Glucose [Mass/Vol] 104 mg/dL Normal 55-199 [facility] Comment on above: Result Comment: If t his glucose result represents a fasting glucose, interpretation should refer to the following reference range: 55-99 mg/dL Performed By: #### 1 7024800, 9158440, 4927885, 2204736, 92835227, 23253673, 1708624 ####[facility] [address] [place] [address] Potassium [Moles/Vol] 4.2 mmol/L Normal 3.5-5.3 [facility] Comment on above: Performed By: #### 1 2558707, 7333977, 2526500, 5447268, 66044818, 16276679, 0774942 ####[facility] [address] [place] [address] Sodium [Moles/Vol] 136 mmol/L Normal 135-145 [facility] Comment on above: Performed By: #### 1 3860172, 4085880, 6127618, 7862689, 59405290, 18791698, 6275223 ####[facility] [address] [place] [address] CBC w/ Auto Diffon Erythrocyte distribution width (RBC) [Ratio] 13.8 % Normal 10.9-14.2 [facility] Comment on above: Performed By: #### 1 3466501, 6389151, 0693875, 7442648, 75587487, 33731471, 6907358 ####[address] [place] [address] Hematocrit (Bld) [Volume fraction] 42.5 % Normal 37.7-49.0 [facility] Comment on above: Performed By: #### 1 3220307, 2267464, 5582546, 3169641, 88564892, 70971576, 0855865 ####[address] [place] [address] Hemoglobin (Bld) [Mass/Vol] 14.1 g/dL Normal 13.5-17.5 [facility] Comment on above: Performed By: #### 1 0081821, 1937956, 2108642, 2156099, 57718968, 00469518, 7186771 ####[address] [place] [address] MCH (RBC) [Entitic mass] 33.0 pg Normal 27.0-34.0 [facility] Comment on above: Performed By: #### 1 3207158, 6678142, 5023280, 5214672, 34292927, 34146859, 3135435 ####[address] [place] [address] MCHC (RBC) [Mass/Vol] 33.1 g/dL Normal 31.4-36.0 [facility] Comment on above: Performed By: #### 1 6634857, 2944843, 8840497, 8482329, 76392610, 97623740, 6487189 ####[address] [place] [address] MCV (RBC) [Entitic vol] 99.8 fL Normal 80.0-100.0 [facility] Comment on above: Performed By: #### 1 2406300, 9786465, 7069084, 0474797, 29258368, 51456075, 1731048 ####[facility] [address] [place] [address] Platelet mean volume (Bld) [Entitic vol] 11.0 fL High 6.4-10.8 [facility] Comment on above: Performed By: #### 1 6009853, 2405852, 0830719, 5008205, 95974805, 39157948, 1968306 ####[facility] [address] [place] [address] Platelets (Bld) [#/Vol] 96.0 E9/L Low 150.0-500.0 [facility] Comment on above: Performed By: #### 1 5158222, 4713922, 4819640, 8791039, 16549519, 01721577, 8202560 ####[facility] [address] [place] [address] RBC (Bld) [#/Vol] 4.3 E12/L Normal 4.3-5.9 [facility] Comment on above: Performed By: #### 1 9742258, 4380554, 3855481, 5257982, 54917658, 37150932, 3335907 ####[facility] [address] [place] [address] WBC corrected for nucl RBC Auto (Bld) [#/Vol] 6.5 E9/L Normal 4.0-11.0 [facility] Comment on above: Performed By: #### 1 2134740, 8890952, 7102015, 6052169, 13351281, 77282583, 7908165 ####[facility] [address] [place] [address] CHEMISTRYOrdered By: SYSTEM SYSTEM on 05-15-2022 Troponin I.cardiac [Mass/Vol] 5.10 pg/mL Low 15.90 - 38.40 pg/mL [facility] Anion gap [Moles/Vol] 14 mmol/L Normal 6 - 16 mEq/L [facility] Calcium [Mass/Vol] 8.9 mg/dL Normal 8.9 - 11. 1 mg/dL [facility] Chloride [Moles/Vol] 100 mmol/L Low 101 - 1 11 mmol/L [facility] CO2 [Moles/Vol] 26 mmol/L Normal 21 - 31 mmol/L [facility] Creatinine [Mass/Vol] 1.1 mg/dL Normal 0.5 - 1.3 mg/dL [facility] GFR/1.73 sq M.predicted among blacks MDRD (S/P/Bld) [Vol rate/Area] mL/min/1.73 m2 Normal >=59mL/min/1 .73 m2 [facility] [place] S GFR/1.73 sq M.predicted among non-blacks MDRD (S/P/Bld) [Vol rate/Area] mL/min/1.73 m2 Normal >=59mL/min/1 .73 m2 [facility] Chem S Glucose [Mass/Vol] 104 mg/dL Normal 55 - 199 mg/dL [facility] Magnesium [Mass/Vol] 1.9 mg/dL Normal 1.3 - 2 .4 mg/dL [facility] Potassium [Moles/Vol] 4.2 mmol/L Normal 3.5 - 5.3 mmol/L [facility] Sodium [Moles/Vol] 136 mmol/L Normal 135 - 145 mmol/L [facility] Troponin I.cardiac [Mass/Vol] 4.40 pg/mL Low 15.90 - 38.40 pg/mL [facility] Urea nitrogen [Mass/Vol] 16 mg/dL Normal 5 - 21 mg/dL [facility] Urea nitrogen/Creatinine [Mass ratio] 14 mg/mg Normal 10 - 20 [facility] COAGULATIONOrdered By: Rei Bolanos on 05-15-2022 aPTT Coag (PPP) [Time] 32.5 s Normal 25.1 - 36.5 second(s) [facility] INR Coag (PPP) [Relative time] 1.2 {INR} Invalid Interpretation Code [facility] PT Coag (PPP) [Time] 13.6 s High 9.4 - 1 2.5 second(s) [facility] Coag Consent for Treatmenton 04-29 Consent for Treatment [id number]#[id number] Normal [facility] HEMATOLOGYOrdered By: SYSTEM SYSTEM on 05-15-2022 Basophils/100 WBC (Bld) 0.7 % Normal 0.0 - 2.0 % [facility] Basophils/Leukocytes Auto (Bld) [Pure # fraction] 0.0 E9/L Normal 0.0 - 0.2 E9/L [facility] Eosinophils/100 WBC (Bld) 0.4 % Normal 0.0 - 8.0 % [facility] Eosinophils/Leukocyte s Auto (Bld) [Pure # fraction] 0.0 E9/L Normal 0.0 - 0.5 E9/L [facility] Lymphocytes/100 WBC (Bld) 30.3 % Normal 14.0 - 50.0 % [facility] Lymphocytes/Leukocyte s Auto (Bld) [Pure # fraction] 2.0 E9/L Normal 1.0 - 4.0 E9/L [facility] Monocytes/100 WBC (Bld) 9.5 % Normal 4.0 - 14.0 % [facility] Monocytes/Leukocytes Auto (Bld) [Pure # fraction] 0.6 E9/L Normal 0.2 - 1.0 E9/L [facility] Neutrophils/100 WBC (Bld) 59.1 % Normal 36.0 - 75.0 % [facility] Neutrophils/Leukocyte s Auto (Bld) [Pure # fraction] 3.9 E9/L Normal 2.0 - 7.5 E9/L [facility] HEMATOLOGYOrdered By: Rei Bolanos on 05-15-2022 Erythrocyte distribution width (RBC) [Ratio] 13.8 % Normal 10.9 - 14.2 % [facility] Hematocrit (Bld) [Volume fraction] 42.5 % Normal 37.7 - 49.0 % [facility] Hemoglobin (Bld) [Mass/Vol] 14.1 g/dL Normal 13.5 - 17.5 gm/dL [facility] MCH (RBC) [Entitic mass] 33.0 pg Normal 27.0 - 34.0 pg [facility] MCHC (RBC) [Mass/Vol] 33.1 g/dL Normal 31.4 - 36.0 gm/dL [facility] MCV (RBC) [Entitic vol] 99.8 fL Normal 80.0 - 100.0 fL [facility] Platelet mean volume (Bld) [Entitic vol] 11.0 fL High 6.4 - 10.8 fL [facility] Platelets (Bld) [#/Vol] 96.0 E9/L Low 150.0 - 500.0 E9/L [facility] RBC (Bld) [#/Vol] 4.3 E12/L Normal 4.3 - 5.9 E12/L [facility] WBC corrected for nucl RBC Auto (Bld) [#/Vol] 6.5 E9/L Normal 4.0 - 11.0 E9/L [facility] Magnesiumon 05-15-2022 Magnesium [Mass/Vol] 1.9 mg/dL Normal 1.3-2.4 [facility] Comment on above: Performed By: #### 1 2255840, 6636464, 8635330, 6999891, 85380688, 94453811, 4784252 ####[facility] [address] [place] [address] PT & PTTon 05-15-2022 aPTT Coag (PPP) [Time] 32.5 second(s) Normal 25.1-36.5 [facility] Comment on above: Result Comment: Para meter 15 days - 4 weeks 1 - 5 months 6 - 11 months 1 - 5 years 6 - 10 years 11 - 17 years PTT Mean: 35.4 (27.6-45.6) Mean: 33.5 (24.8-40.7) Mean: 32.4 (25.1-40.7) Mean: 31.6 (24.0-39.2) Mean: 31.6 (26.9-38.7) Mean: 31.0 (24.6-38.4) Pediatric Reference ranges were obtained from a study by johny Alarcon al. prepared from 1437 samples obtained at 7 different centers using the same coagulation reagent and instrumentation as [facility]. Currently there are no coagulation studies available worldwide for children to 14 days, and no normal ranges. Heparin therapeutic range (represented by Anti-Factor Xa activity of 0.2 - 0.4 U/mL) corresponds to PTT of 56.6 - 109.0 sec. Performed By: #### 1 3821128, 3248779, 0009935, 6447338, 08466574, 64361994, 3233418 ####[facility] [address] [place] [address] INR Coag (PPP) [Relative time] 1.2 {INR} Invalid Interpretation Code [facility] Comment on above: Result Comment: INR results are specifically intended to assess patients stabilized on long-term Anticoagulation therapy suggested INR?s ?Less Intensive Anticoagulation? 2.0 ? 3.0 Conventional Range 3.0 ? 4.5 Performed By: #### 1 9618769, 9010138, 9593950, 2619572, 94706977, 94058334, 0013175 ####[facility] [address] [place] [address] PT Coag (PPP) [Time] 13.6 second(s) High 9.4-12.5 [facility] Comment on above: Result Comment: 15 d ays - 4 weeks 1 - 5 months 6 -11 months 1 ? 5 years 6 ? 10 years 11 -17 years Mean: 11.2 (9.5 ? 12.6) Mean: 11.0 (9.7 ? 12.8) Mean: 11.0 (9.8 ? 13.0) Mean: 11.3 (9.9 ? 13.4) Mean: 11.7 (10.0 ? 14.6) Mean: 11.8 (10.0 - 14.1) Pediatric Reference ranges were obtained from a study by Chaitanya Singh et al. prepared from 1437 samples obtained at 7 different centers using the same coagulation reagent and instrumentation as [facility]. Currently there are no coagulation studies available worldwide for children to 14 days, and no normal ranges. Performed By: #### 1 8964974, 5267839, 8950096, 0563097, 39626348, 65783877, 1779957 ####[facility] [address] [place] [address] Pre-Arrival Noteon 2 Pre-Arrival Note Pre-Arrival Summary Name: CARMELO Current Date: 05/15/2022 19:46:22 EST Gender: Male Date of : Age: 67 Pre-Arrival Type: EMS ETA: 05/15/2022 19:40:00 EST Primary Care Physician: Presenting Problem: tachycardia Pre-Arrival User: Lucy Kramer RN Referring Source: Location: Completion Date/Time: 05/15/2022 19:36:00 [facility] Emergency Department Pre-Hospital Report Form Vital Signs: Pre-Hospital Report: Treatment in Route: Response to Treatment: Misc. Issues: Normal [facility] Troponin 0 Hr.on 05-15-2022 Troponin I.cardiac [Mass/Vol] 4.40 pg/mL Low 15.90-38.40 [facility] Comment on above: Result Comment: The 95% CI (Confidence Interval) PPV (Positive Predictive Value) for myocardial infarction in females is 38 pg/mL, in males 51 pg/mL. The results should be used in conjunction with clinical conditions of myocardial infarction. (Access High Sensitivity Troponin I Instructions For Use, Marilyn Velvet, December 2017) Performed By: #### 1 5745646, 0622096, 4895102, 8768562, 64462086, 39551811, 4288219 ####[facility] [address] [place] [address] eGFRon 05-15-2022 GFR/1.73 sq M.predicted among blacks MDRD (S/P/Bld) [Vol rate/Area] mL/min/{1.73_m2} Normal >=59 [facility] Comment on above: Order Comment: Order added by Discern Expert. Result Comment: eGFR is race adjusted. AA=. Performed By: #### 1 5787240, 0957773, 1744581, 4095123, 80033876, 27544355, 5730883 ####[facility] [address] [place] [address] GFR/1.73 sq M.predicted among non-blacks MDRD (S/P/Bld) [Vol rate/Area] mL/min/{1.73_m2} Normal >=59 [facility] Comment on above: Order Comment: Order added by Discern Expert. Result Comment: General Maintenance Engineer anai kidney disease could be indicated at eGFR's of less than 60 mL/min/1.73m2. Kidney failure is indicated at less than 15 mL/min/1.73m2. Performed By: #### 1 0750416, 4021327, 2021768, 2321099, 80498854, 51789052, 5397936 ####[facility] [address] [place] [address] CHEMISTRYOrdered By: SYSTEM SYSTEM on 01-02-2022 Albumin [Mass/Vol] 3.7 g/dL Normal 3.3 - 5.0 gm/dL [facility] Albumin/Globulin [Mass ratio] 1.3 {ratio} Normal 1.1 - 2.2 [facility] ALP [Catalytic activity/Vol] 62 [iU]/d Normal 21 - 98 Int._Unit/L [facility] ALT No additional P-5'-P [Catalytic activity/Vol] 15 [iU]/d Normal 6 - 46 Int._Unit/L [facility] Anion gap [Moles/Vol] 11 mmol/L Normal 6 - 16 mEq/L F [facility] AST [Catalytic activity/Vol] 25 [iU]/d Normal 5 - 43 Int._Unit/L [facility] Bilirubin [Mass/Vol] 0.7 mg/dL Normal 0.0 - 1 .1 mg/dL [facility] Bilirubin.direct [Mass/Vol] 0.2 mg/dL Normal 0.1 - 0.4 mg/dL [facility] Bilirubin.indirect [Mass or moles/Vol] 0.5 mg/dL Normal 0.1 - 0.9 mg/dL [facility] Calcium [Mass/Vol] 8.8 mg/dL Low 8.9 - 11. 1 mg/dL [facility] Chloride [Moles/Vol] 105 mmol/L Normal 101 - 1 11 mmol/L [facility] CO2 [Moles/Vol] 24 mmol/L Normal 21 - 31 mmol/L [facility] Creatinine [Mass/Vol] 0.9 mg/dL Normal 0.5 - 1.3 mg/dL [facility] GFR/1.73 sq M.predicted among blacks MDRD (S/P/Bld) [Vol rate/Area] mL/min/1.73 m2 Normal >=59mL/min/1 .73 m2 [facility] Chem S GFR/1.73 sq M.predicted among non-blacks MDRD (S/P/Bld) [Vol rate/Area] mL/min/1.73 m2 Normal >=59mL/min/1 .73 m2 [facility] S Globulin (S) [Mass/Vol] 2.8 g/dL Normal 1.4 - 4.0 gm/dL [facility] Glucose [Mass/Vol] 79 mg/dL Normal 55 - 199 mg/dL [facility] Magnesium [Mass/Vol] 2.2 mg/dL Normal 1.3 - 2 .4 mg/dL [facility] Potassium [Moles/Vol] 4.1 mmol/L Normal 3.5 - 5.3 mmol/L [facility] Protein [Mass/Vol] 6.5 g/dL Normal 6.0 - 7.8 gm/dL [facility] Sodium [Moles/Vol] 136 mmol/L Normal 135 - 145 mmol/L [facility] Troponin I.cardiac [Mass/Vol] 4.40 pg/mL Low 15.90 - 38.40 pg/mL [facility] Urea nitrogen [Mass/Vol] 22 mg/dL High 5 - 21 mg/dL [facility] Urea nitrogen/Creatinine [Mass ratio] 24 mg/mg High 10 - 20 [facility] COAGULATIONOrdered By: Rei Bolanos on 01-02-2022 aPTT Coag (PPP) [Time] 30.1 s Normal 25.1 - 36.5 second(s) [facility] INR Coag (PPP) [Relative time] 1.2 {INR} Invalid Interpretation Code [facility] PT Coag (PPP) [Time] 13.8 s High 10.2 - 12.9 second(s) [facility] HEMATOLOGYOrdered By: SYSTEM SYSTEM on 01-02-2022 Basophils/100 WBC (Bld) 0.5 % Normal 0.0 - 2.0 % [facility] Basophils/Leukocytes Auto (Bld) [Pure # fraction] 0.0 E9/L Normal 0.0 - 0.2 E9/L [facility] Eosinophils/100 WBC (Bld) 1.0 % Normal 0.0 - 8.0 % [facility] Eosinophils/Leukocyte s Auto (Bld) [Pure # fraction] 0.1 E9/L Normal 0.0 - 0.5 E9/L [facility] Lymphocytes/100 WBC (Bld) 32.3 % Normal 14.0 - 50.0 % [facility] Lymphocytes/Leukocyte s Auto (Bld) [Pure # fraction] 1.7 E9/L Normal 1.0 - 4.0 E9/L [facility] Monocytes/100 WBC (Bld) 17.8 % High 4.0 - 14.0 % [facility] Monocytes/Leukocytes Auto (Bld) [Pure # fraction] 0.9 E9/L Normal 0.2 - 1.0 E9/L [facility] Neutrophils/100 WBC (Bld) 48.4 % Normal 36.0 - 75.0 % [facility] Neutrophils/Leukocyte s Auto (Bld) [Pure # fraction] 2.6 E9/L Normal 2.0 - 7.5 E9/L [facility] HEMATOLOGYOrdered By: Rei Bolanos on 01-02-2022 Erythrocyte distribution width (RBC) [Ratio] 14.1 % Normal 10.9 - 14.2 % [facility] Hematocrit (Bld) [Volume fraction] 41.7 % Normal 37.7 - 49.0 % [facility] Hemoglobin (Bld) [Mass/Vol] 14.0 g/dL Normal 13.5 - 17.5 gm/dL [facility] MCH (RBC) [Entitic mass] 32.7 pg Normal 27.0 - 34.0 pg [facility] MCHC (RBC) [Mass/Vol] 33.4 g/dL Normal 31.4 - 36.0 gm/dL [facility] MCV (RBC) [Entitic vol] 97.7 fL Normal 80.0 - 100.0 fL [facility] Platelet mean volume (Bld) [Entitic vol] 11.4 fL High 6.4 - 10.8 fL [facility] Platelets (Bld) [#/Vol] 87.0 E9/L Low 150.0 - 500.0 E9/L [facility] RBC (Bld) [#/Vol] 4.3 E12/L Normal 4.3 - 5.9 E12/L [facility] WBC corrected for nucl RBC Auto (Bld) [#/Vol] 5.3 E9/L Normal 4.0 - 11.0 E9/L [facility] CHEMISTRYOrdered By: SYSTEM SYSTEM on 08-31-2021 Anion gap [Moles/Vol] 11 mmol/L Normal 6 - 16 mEq/L [facility] Calcium [Mass/Vol] 9.2 mg/dL Normal 8.9 - 11. 1 mg/dL [facility] Chloride [Moles/Vol] 106 mmol/L Normal 101 - 1 11 mmol/L [facility] CO2 [Moles/Vol] 25 mmol/L Normal 21 - 31 mmol/L [facility] Creatinine [Mass/Vol] 0.9 mg/dL Normal 0.5 - 1.3 mg/dL [facility] GFR/1.73 sq M.predicted among blacks MDRD (S/P/Bld) [Vol rate/Area] mL/min/1.73 m2 Normal >=59mL/min/1 .73 m2 [facility] Chem S GFR/1.73 sq M.predicted among non-blacks MDRD (S/P/Bld) [Vol rate/Area] mL/min/1.73 m2 Normal >=59mL/min/1 .73 m2 [facility] Chem S Glucose [Mass/Vol] 78 mg/dL Normal 55 - 199 mg/dL [facility] Potassium [Moles/Vol] 4.3 mmol/L Normal 3.5 - 5.3 mmol/L [facility] Sodium [Moles/Vol] 138 mmol/L Normal 135 - 145 mmol/L [facility] Urea nitrogen [Mass/Vol] 20 mg/dL Normal 5 - 21 mg/dL [facility] Urea nitrogen/Creatinine [Mass ratio] 22 mg/mg High 10 - 20 [facility] HEMATOLOGYOrdered By: Simplify SYSTEM on 08-31-2021 Basophils/100 WBC (Bld) 0.4 % Normal 0.0 - 2.0 % [facility] Basophils/Leukocytes Auto (Bld) [Pure # fraction] 0.0 E9/L Normal 0.0 - 0.2 E9/L [facility] Eosinophils/100 WBC (Bld) 0.5 % Normal 0.0 - 8.0 % [facility] Eosinophils/Leukocyte s Auto (Bld) [Pure # fraction] 0.0 E9/L Normal 0.0 - 0.5 E9/L [facility] Lymphocytes/100 WBC (Bld) 42.7 % Normal 14.0 - 50.0 % [facility] Lymphocytes/Leukocyte s Auto (Bld) [Pure # fraction] 2.5 E9/L Normal 1.0 - 4.0 E9/L [facility] Monocytes/100 WBC (Bld) 9.3 % Normal 4.0 - 14.0 % [facility] Monocytes/Leukocytes Auto (Bld) [Pure # fraction] 0.5 E9/L Normal 0.2 - 1.0 E9/L [facility] Neutrophils/100 WBC (Bld) 47.1 % Normal 36.0 - 75.0 % [facility] Neutrophils/Leukocyte s Auto (Bld) [Pure # fraction] 2.8 E9/L Normal 2.0 - 7.5 E9/L [facility] HEMATOLOGYOrdered By: Tamar [place] on 08-31-2021 Erythrocyte distribution width (RBC) [Ratio] 13.3 % Normal 10.9 - 14.2 % [facility] Hematocrit (Bld) [Volume fraction] 39.3 % Normal 37.7 - 49.0 % [facility] Hemoglobin (Bld) [Mass/Vol] 13.5 g/dL Normal 13.5 - 17.5 gm/dL [facility] MCH (RBC) [Entitic mass] 33.5 pg Normal 27.0 - 34.0 pg [facility] MCHC (RBC) [Mass/Vol] 34.5 g/dL Normal 31.4 - 36.0 gm/dL [facility] MCV (RBC) [Entitic vol] 97.2 fL Normal 80.0 - 100.0 fL [facility] Platelet mean volume (Bld) [Entitic vol] 10.7 fL Normal 6.4 - 10.8 fL [facility] Platelets (Bld) [#/Vol] 98.0 E9/L Low 150.0 - 500.0 E9/L [facility] RBC (Bld) [#/Vol] 4.0 E12/L Low 4.3 - 5.9 E12/L [facility] WBC corrected for nucl RBC Auto (Bld) [#/Vol] 5.9 E9/L Normal 4.0 - 11.0 E9/L [facility] Comment on above: Result Comment: Slid e reviewed by AEW. CHEMISTRYOrdered By: SYSTEM SYSTEM on 08-30-2021 Anion gap [Moles/Vol] 12 mmol/L Normal 6 - 16 mEq/L [facility] Calcium [Mass/Vol] 9.1 mg/dL Normal 8.9 - 11. 1 mg/dL [facility] Chloride [Moles/Vol] 103 mmol/L Normal 101 - 1 11 mmol/L [facility] CO2 [Moles/Vol] 22 mmol/L Normal 21 - 31 mmol/L [facility] Creatinine [Mass/Vol] 0.9 mg/dL Normal 0.5 - 1.3 mg/dL [facility] CRP [Mass/Vol] 0.5 mg/dL Normal <=1.9mg/dL [facility] ol GFR/1.73 sq M.predicted among blacks MDRD (S/P/Bld) [Vol rate/Area] mL/min/1.73 m2 Normal >=59mL/min/1 .73 m2 [facility] S GFR/1.73 sq M.predicted among non-blacks MDRD (S/P/Bld) [Vol rate/Area] mL/min/1.73 m2 Normal >=59mL/min/1 .73 m2 [facility] Glucose [Mass/Vol] 84 mg/dL Normal 55 - 199 mg/dL [facility] Magnesium [Mass/Vol] 1.8 mg/dL Normal 1.3 - 2 .4 mg/dL [facility] Potassium [Moles/Vol] 3.6 mmol/L Normal 3.5 - 5.3 mmol/L [facility] Sodium [Moles/Vol] 133 mmol/L Low 135 - 145 mmol/L [facility] Troponin I.cardiac [Mass/Vol] 7.40 pg/mL Low 15.90 - 38.40 pg/mL [facility] TSH Qn 1.55 m[IU]/L Normal 0.34 - 5.60 mcIU/mL [facility] Urea nitrogen [Mass/Vol] 18 mg/dL Normal 5 - 21 mg/dL [facility] Urea nitrogen/Creatinine [Mass ratio] 20 mg/mg Normal 10 - 20 [facility] Troponin I.cardiac [Mass/Vol] 6.30 pg/mL Low 15.90 - 38.40 pg/mL [facility] COAGULATIONOrdered By: Abel on Lbair on 08-30-2021 Fibrin D-dimer FEU (PPP) [Mass/Vol] 426 ng/mL FEU Normal 215 - 500 ng/mL FEU [facility] Auto [facility]ag HEMATOLOGYOrdered By: SYSTEM SYSTEM on 08-30-2021 Basophils/100 WBC (Bld) 0.5 % Normal 0.0 - 2.0 % [facility] HemeAutoSS Basophils/Leukocytes Auto (Bld) [Pure # fraction] 0.0 E9/L Normal 0.0 - 0.2 E9/L [facility] Eosinophils/100 WBC (Bld) 0.6 % Normal 0.0 - 8.0 % [facility]eAuto[facility] Eosinophils/Leukocyte s Auto (Bld) [Pure # fraction] 0.0 E9/L Normal 0.0 - 0.5 E9/L [facility] Lymphocytes/100 WBC (Bld) 44.5 % Normal 14.0 - 50.0 % [facility] Lymphocytes/Leukocyte s Auto (Bld) [Pure # fraction] 3.0 E9/L Normal 1.0 - 4.0 E9/L [facility] Monocytes/100 WBC (Bld) 9.2 % Normal 4.0 - 14.0 % [facility]eAuto[facility] Monocytes/Leukocytes Auto (Bld) [Pure # fraction] 0.6 E9/L Normal 0.2 - 1.0 E9/L [facility] Neutrophils/100 WBC (Bld) 45.2 % Normal 36.0 - 75.0 % [facility] HemeAutoSS Neutrophils/Leukocyte s Auto (Bld) [Pure # fraction] 3.0 E9/L Normal 2.0 - 7.5 E9/L [facility] HemeAutoSS HEMATOLOGYOrdered By: Jack Coleman on 08-30-2021 Erythrocyte distribution width (RBC) [Ratio] 13.5 % Normal 10.9 - 14.2 % [facility] HemeAutoSS Hematocrit (Bld) [Volume fraction] 40.8 % Normal 37.7 - 49.0 % [facility] Hemoglobin (Bld) [Mass/Vol] 13.9 g/dL Normal 13.5 - 17.5 gm/dL [facility]SS MCH (RBC) [Entitic mass] 33.4 pg Normal 27.0 - 34.0 pg [facility] MCHC (RBC) [Mass/Vol] 34.2 g/dL Normal 31.4 - 36.0 gm/dL [facility] MCV (RBC) [Entitic vol] 97.5 fL Normal 80.0 - 100.0 fL [facility] Morphology Mike (Bld) [Interp] Normal (08/30/21 6:02 AM) Normal [facility] Platelet mean volume (Bld) [Entitic vol] 11.5 fL High 6.4 - 10.8 fL [facility]eAuto[facility] Platelets (Bld) [#/Vol] 117.0 E9/L Low 150.0 - 500.0 E9/L [facility] Platelets Large LM Ql (Bld) Present (08/30/21 6:02 AM) Normal [facility] RBC (Bld) [#/Vol] 4.2 E12/L Low 4.3 - 5.9 E12/L [facility] WBC corrected for nucl RBC Auto (Bld) [#/Vol] 6.7 E9/L Normal 4.0 - 11.0 E9/L [facility] Reference Laboratory Testing Ordered By: Nora AnthonyUselitzy on 08-30-2021 Cortisol [Mass/Vol] 1.9 ug/dL Invalid Interpretation Code [facility]Out[facility] Comment on above: Result Comment: Antelmo isol AM 6.2 - 19.4 Cortisol PM 2.3 - 11.9 Performed at: [facility] [id number] PhD Sachin Garcia PSA ScreeningOrdered By: Fely Arteaga on 03-05-2021 [employer] Phone: Comprehensive Metabolic Pane lOrdered By: Doug Arteaga on 02-16-2021 Albumin [Mass/Vol] 3.8 g/dL 3.5 - 5.2 g/dL [employer] Phone: Albumin/Globulin Ratio NOT REPORTED [employer] Phone: ALP (Bld) [Catalytic activity/Vol] 70 U/L 40 - 129 U/L [employer] Phone: ALT [Catalytic activity/Vol] 12 U/L 5 - 41 U/L [employer] Phone: Anion gap [Moles/Vol] 8 mmol/L Low 9 - 17 mmol/L [employer] Phone: AST [Catalytic activity/Vol] 16 U/L <40 [employer] Phone: Bilirubin [Mass/Vol] 0.61 mg/dL 0.30 - 1.20 mg/dL [employer] Phone: Calcium [Mass/Vol] 8.8 mg/dL 8.6 - 10. 4 mg/dL [employer] Phone: Chloride [Moles/Vol] 105 mmol/L 98 - 10 7 mmol/L [employer] Phone: CO2 [Moles/Vol] 27 mmol/L 20 - 31 mmol/L [employer] Phone: Creatinine [Mass/Vol] 0.84 mg/dL 0.70 - 1.20 mg/dL [employer] Phone: Free PSA/Total PSA [Mass fraction] 6.6 g/dL 6.4 - 8.3 g/dL [employer] Phone: GFR >60 >60 mL/min [email or web address] Phone: GFR Non- >60 >60 mL/min [employer] Phone: GFR/1.73 sq M.predicted MDRD (S/P/Bld) [Vol rate/Area] [employer] Phone: Comment on above: Average GFR for 60-6 9 years old: 85 mL/min/1.73sq m Chronic Kidney Disease: <60 mL/min/1.73sq m Kidney failure: <15 mL/min/1.73sq m eGFR calculated using average adult body mass. Additional eGFR calculator available at: http://www.PowerInbox/Infinite Monkeys_crcl_2012.htm GFR/1.73 sq M.predicted MDRD (S/P/Bld) [Vol rate/Area] NOT REPORTED [employer] Phone: Glucose [Mass/Vol] 86 mg/dL 70 - 99 mg/dL [employer] Phone: Interpretation and review of laboratory results Abnormal [employer] Phone: Potassium [Moles/Vol] 3.9 mmol/L 3.7 - 5.3 mmol/L [employer] Phone: Sodium [Moles/Vol] 140 mmol/L 135 - 144 mmol/L [employer] Phone: Urea nitrogen (BldV) [Mass/Vol] 14 mg/dL 8 - 23 mg/dL [employer] Phone: Urea nitrogen/Creatinine (Bld) [Mass ratio] 17 [employer] Phone: Lipid PanelOrdered By: Doug Arteaga on 02-16-2021 Cholesterol [Mass/Vol] 125 mg/dL <200 [employer] Phone: Comment on above: Cholesterol Guidelines: <200 Desirable 200-240 Borderline >240 Undesirable Cholesterol in HDL [Mass/Vol] 40 mg/dL Low >40 [employer] Phone: Comment on above: HDL Guidelines: <40 Undesirable 40-59 Borderline >59 Desirable Cholesterol in LDL [Mass/Vol] 73 mg/dL 0 - 130 mg/dL [employer] Phone: Comment on above: LDL Guidelines: <100 Desirable 100-129 Near to/above Desirable 130-159 Borderline >159 Undesirable Direct (measured) LDL and calculated LDL are not interchangeable tests. Cholesterol in VLDL [Mass/Vol] NOT REPORTED 1 - 30 mg/dL [employer] Phone: Cholesterol.total/Cho lesterol in HDL [Mass ratio] 3.1 {ratio} <5 [employer] Phone: Interpretation and review of laboratory results Abnormal [employer] Phone: Triglyceride [Mass/Vol] 60 mg/dL <150 [employer] Phone: Comment on above: Triglyceride Guidelines: <150 Desirable 150-199 Borderline 200-499 High >499 Very high Based on AHA Guidelines for fasting triglyceride, February 2012. [employer] Phone: No Panel InformationOrdered By: Doug Arteaga on 02-16-2021 [employer] Phone: Patient Fasting?Ordered By: Doug Arteaga on 02-16-2021 Patient Fasting? yes [employer] Phone: [employer] Phone: TSH without ReflexOrdered By : Doug Arteaga on 02-16-2021 TSH Qn 1.60 m[IU]/L [employer] Phone: CBC Auto Differentialon 01-0 Basophils (Bld) [#/Vol] 0.00 10*3/uL [facility] [place] Basophils/100 WBC (Bld) 0 % 0 - 2 % [place] Differential Type YES [place] Eosinophils (Bld) [#/Vol] 0.10 10*3/uL [place] Eosinophils/100 WBC (Bld) 1 % 0 - 5 % [place] Erythrocyte distribution width (RBC) [Ratio] 14.2 % 12.1 - 15.2 % [place] Hematocrit (Bld) [Volume fraction] 42.4 % 41 - 53 % [place] Hemoglobin (Bld) [Mass/Vol] 14.4 g/dL 13.5 - 17.5 g/dL [place] Interpretation and review of laboratory results Abnormal [place] Lymphocytes (Bld) [#/Vol] 3.20 10*3/uL [place] Lymphocytes/100 WBC (Bld) 42 % 13 - 44 % [place] MCH (RBC) [Entitic mass] 34.1 pg High 26 - 34 pg [place] MCHC (RBC) [Mass/Vol] 34.0 g/dL 31 - 37 g/dL [place] MCV (RBC) [Entitic vol] 100.3 fL High 80 - 100 fL [place] Monocytes (Bld) [#/Vol] 0.60 10*3/uL [place] Monocytes/100 WBC (Bld) 8 % 5 - 9 % [place] Platelet mean volume (Bld) [Entitic vol] NOT REPORTED 6 - 12 fL [place] Platelets (Bld) [#/Vol] NOT REPORTED [place] Platelets (Bld) [#/Vol] 123 10*3/uL Low [place] RBC (Bld) [#/Vol] 4.23 10*6/uL Low 4.5 - 5.9 m/uL [place] RBC morphology finding Nom (Bld) NOT REPORTED [place] Segmented neutrophils/100 WBC (Bld) 49 % 39 - 75 % [place] Segs Absolute 3.70 [place] WBC (Bld) [#/Vol] NOT REPORTED per 100 WBC [place] WBC (Bld) [#/Vol] 7.7 10*3/uL [facility] [place] WBC Morphology NOT REPORTED [facility] W WO CONTRASTon 1. No acute intracranial findings. 2. Unremarkable intracranial CT angiograms [facility] [place], [place] Incoming Radiant Results From [employer] - 06/02/2020 3:26 PM EST EXAMINATION: CTA HEAD W WO CONTRAST HISTORY: Reason for exam:->headache, diplopia COMPARISON: CT brain 01/19/2020 TECHNIQUE: Initial noncontrast imaging was performed to determine the site of clinical interest. 100 mL of Isovue 370 was then injected. Sequential axial films were obtained. These were evaluated with additional 3D MIP reconstructions generated from the axial data set. MIP (maximum intensity projection) images were performed. Dose reduction techniques were achieved by using automated exposure control and/or adjustment of mA and/or kV according to patient size and/or use of iterative reconstruction technique. FINDINGS: CT ANGIOGRAM: The basilar artery is formed by both vertebral arteries. The basilar artery itself terminates as the superior cerebellar and the posterior cerebral arteries. There is also noted to be a posterior communicating artery bilaterally. The internal carotid arteries flow through the skull base. The cavernous loops are somewhat tortuous but do remain patent. They give rise to the anterior and the middle cerebral arteries showing no evidence of intracranial stenosis or focal branch occlusion. Intracranial aneurysms or not identified. The cerebral arteries are symmetrical without focal branch occlusion or intracranial stenosis seen. CT BRAIN: There is no intracranial hemorrhage or abnormal extra-axial fluid collections. There is mild ventriculomegaly and sulcal prominence suggesting age appropriate volume loss. There are are a few areas of scattered hypodensities seen within the subcortical and deep white matter presumably related to small vessel atherosclerotic disease. Fourth ventricle is in the midline. Midline symmetry is preserved. Arterial calcifications are noted at the skull base. The contrast enhanced images show no areas of abnormal intra-axial or extra-axial enhancement. IMPRESSION: 1. No acute intracranial findings. 2. Unremarkable intracranial CT angiograms [facility] [place] EXAMINATION: CTA HEAD W WO CONTRAST HISTORY: Reason for exam:->headache, diplopia COMPARISON: CT brain 01/19/2020 TECHNIQUE: Initial noncontrast imaging was performed to determine the site of clinical interest. 100 mL of Isovue 370 was then injected. Sequential axial films were obtained. These were evaluated with additional 3D MIP reconstructions generated from the axial data set. MIP (maximum intensity projection) images were performed. Dose reduction techniques were achieved by using automated exposure control and/or adjustment of mA and/or kV according to patient size and/or use of iterative reconstruction technique. FINDINGS: CT ANGIOGRAM: The basilar artery is formed by both vertebral arteries. The basilar artery itself terminates as the superior cerebellar and the posterior cerebral arteries. There is also noted to be a posterior communicating artery bilaterally. The internal carotid arteries flow through the skull base. The cavernous loops are somewhat tortuous but do remain patent. They give rise to the anterior and the middle cerebral arteries showing no evidence of intracranial stenosis or focal branch occlusion. Intracranial aneurysms or not identified. The cerebral arteries are symmetrical without focal branch occlusion or intracranial stenosis seen. CT BRAIN: There is no intracranial hemorrhage or abnormal extra-axial fluid collections. There is mild ventriculomegaly and sulcal prominence suggesting age appropriate volume loss. There are are a few areas of scattered hypodensities seen within the subcortical and deep white matter presumably related to small vessel atherosclerotic disease. Fourth ventricle is in the midline. Midline symmetry is preserved. Arterial calcifications are noted at the skull base. The contrast enhanced images show no areas of abnormal intra-axial or extra-axial enhancement. [place] Comprehensive Metabolic Pane herminio 06-02-2020 Albumin [Mass/Vol] 4.3 g/dL 3.5 - 5.2 g/dL [place] Albumin/Globulin [Mass ratio] NOT REPORTED [place] ALP [Catalytic activity/Vol] 74 U/L 40 - 129 U/L [place] ALT [Catalytic activity/Vol] 13 U/L 5 - 41 U/L [place] Anion gap [Moles/Vol] 5 mmol/L Low 9 - 17 mmol/L [place] AST [Catalytic activity/Vol] 18 U/L <40 [place] Bilirubin Ql (U) 0.87 mg/dL 0.3 - 1.2 mg/dL [place] Bun/Cre Ratio 17 [place] Calcium [Mass/Vol] 9.1 mg/dL 8.6 - 10. 4 mg/dL [place] Chloride [Moles/Vol] 102 mmol/L 98 - 10 7 mmol/L [place] CO2 [Moles/Vol] 30 mmol/L 20 - 31 mmol/L [place] Creatinine [Mass/Vol] 0.76 mg/dL 0.7 - 1.2 mg/dL [place] GFR >60 >60 mL/min [place] GFR Non- >60 >60 mL/min [place] GFR/1.73 sq M predicted among non-blacks MDRD (S/P/Bld) [Vol rate/Area] [place] Comment on above: Average GFR for 60-6 9 years old: 85 mL/min/1.73sq m Chronic Kidney Disease: <60 mL/min/1.73sq m Kidney failure: <15 mL/min/1.73sq m eGFR calculated using average adult body mass. Additional eGFR calculator available at: http://www.[employer]Inbox/multiple_crcl_2012.htm GFR/1.73 sq M predicted among non-blacks MDRD (S/P/Bld) [Vol rate/Area] NOT REPORTED [place] Glucose [Mass/Vol] 100 mg/dL High 70 - 99 mg/dL [place] Interpretation and review of laboratory results Abnormal [place] Potassium [Moles/Vol] 4.1 mmol/L 3.7 - 5.3 mmol/L [place] Protein [Mass/Vol] 6.7 g/dL 6.4 - 8.3 g/dL [place] Sodium [Moles/Vol] 137 mmol/L 135 - 144 mmol/L [place] Urea nitrogen [Mass/Vol] 13 mg/dL 8 - 23 mg/dL [place] Glucose, Whole Bloodon 06-02 Glucose [Mass/Vol] 83 mg/dL 65 - 99 mg/dL [place] Glucose [Mass/Vol] 65 mg/dL 65 - 99 mg/dL [place] Otheron 06-02-2020 Immature granulocytes (Bld) [#/Vol] NOT REPORTED [place] Hematologyon 01-19-2020 Basophils (Bld) [#/Vol] 0.00 10*3/uL [place] Basophils/100 WBC (Bld) 0 % 0 - 2 % [place] Eosinophils (Bld) [#/Vol] 0.10 10*3/uL [place] Eosinophils/100 WBC (Bld) 1 % 0 - 5 % [place] Hematocrit (Bld) [Volume fraction] 43.1 % 41 - 53 % [place] Hemoglobin (Bld) [Mass/Vol] 14.5 g/dL 13.5 - 17.5 g/dL [place] Lymphocytes (Bld) [#/Vol] 2.40 10*3/uL [place] Lymphocytes/100 WBC (Bld) 30 % 13 - 44 % [place] MCH (RBC) [Entitic mass] 33.2 pg 26 - 34 pg [place] MCV (RBC) [Entitic vol] 98.7 fL 80 - 100 fL [place] Monocytes (Bld) [#/Vol] 0.60 10*3/uL [place] Monocytes/100 WBC (Bld) 8 % 5 - 9 % [place] Platelets (Bld) [#/Vol] NOT REPORTED [place] Platelets (Bld) [#/Vol] 114 10*3/uL [place] RBC (Bld) [#/Vol] 4.37 10*6/uL Low 4.5 - 5.9 m/uL [place] RBC morphology finding Nom (Bld) NOT REPORTED [place] WBC (Bld) [#/Vol] NOT REPORTED per 100 WBC [place] WBC (Bld) [#/Vol] 8.0 10*3/uL [place] Metabolic Panelon 01-19-2020 Anion gap [Moles/Vol] 9 mmol/L 9 - 17 mmol/L [place] Calcium [Mass/Vol] 9.9 mg/dL 8.6 - 10. 4 mg/dL [place] Chloride [Moles/Vol] 103 mmol/L 98 - 10 7 mmol/L [place] CO2 [Moles/Vol] 22 mmol/L 20 - 31 mmol/L [place] Creatinine [Mass/Vol] 0.9 mg/dL 0.7 - 1.2 mg/dL [place] GFR/1.73 sq M predicted among non-blacks MDRD (S/P/Bld) [Vol rate/Area] [place] Comment on above: Average GFR for 60-6 9 years old: 85 mL/min/1.73sq m Chronic Kidney Disease: <60 mL/min/1.73sq m Kidney failure: <15 mL/min/1.73sq m eGFR calculated using average adult body mass. Additional eGFR calculator available at: http://www.PowerInbox/multiple_crcl_2012.htm GFR/1.73 sq M predicted among non-blacks MDRD (S/P/Bld) [Vol rate/Area] NOT REPORTED [place] Glucose [Mass/Vol] 98 mg/dL 70 - 99 mg/dL [place] Potassium [Moles/Vol] 4.3 mmol/L 3.7 - 5.3 mmol/L [place] Sodium [Moles/Vol] 134 mmol/L Low 135 - 144 mmol/L [place] Urea nitrogen [Mass/Vol] 13 mg/dL 8 - 23 mg/dL [place] Otheron 01-19-2020 EXAM: CT HEAD WO CONTRAST COMPARISON: None available. CLINICAL INFORMATION: Right arm and leg tingling for the past 5-6 days. TECHNIQUE: Axial noncontrast images were obtained through the brain and reconstructed using brain and bone algorithms with sagittal and coronal reconstructions. Dose reduction techniques were achieved by using automated exposure control and/or adjustment of mA and/or kV according to patient size and/or use of iterative reconstruction technique. FINDINGS: BRAIN: No intracranial hemorrhage. No extra-axial collection. No mass or mass effect. No midline shift. Raza-white matter differentiation is preserved. CSF: Ventricles and sulci appropriate for age. Basal cisterns are patent. ORBITS: Left cataract surgery. SINUSES AND MASTOID AIR CELLS: Paranasal sinuses are clear. Mastoid air cells are clear. BONES: No acute osseous abnormality. SOFT TISSUES: Unremarkable. Moderate intracranial carotid atherosclerosis. [place] CT evidence of acute intracranial abnormality. [place], [place] Incoming Radiant Results From [employer] - 01/19/2020 4:15 PM EDT EXAM: CT HEAD WO CONTRAST COMPARISON: None available. CLINICAL INFORMATION: Right arm and leg tingling for the past 5-6 days. TECHNIQUE: Axial noncontrast images were obtained through the brain and reconstructed using brain and bone algorithms with sagittal and coronal reconstructions. Dose reduction techniques were achieved by using automated exposure control and/or adjustment of mA and/or kV according to patient size and/or use of iterative reconstruction technique. FINDINGS: BRAIN: No intracranial hemorrhage. No extra-axial collection. No mass or mass effect. No midline shift. Raza-white matter differentiation is preserved. CSF: Ventricles and sulci appropriate for age. Basal cisterns are patent. ORBITS: Left cataract surgery. SINUSES AND MASTOID AIR CELLS: Paranasal sinuses are clear. Mastoid air cells are clear. BONES: No acute osseous abnormality. SOFT TISSUES: Unremarkable. Moderate intracranial carotid atherosclerosis. IMPRESSION: No CT evidence of acute intracranial abnormality. [place] Bun/Cre Ratio 14 [place] GFR >60 >60 mL/min [place] GFR Non- >60 >60 mL/min [place] Interpretation and review of laboratory results Abnormal [place] Differential Type YES [place] Erythrocyte distribution width (RBC) [Ratio] 13.4 % 12.1 - 15.2 % [place] Immature granulocytes (Bld) [#/Vol] NOT REPORTED [place] Interpretation and review of laboratory results Abnormal [place] MCHC (RBC) [Mass/Vol] 33.7 g/dL 31 - 37 g/dL [place] Platelet mean volume (Bld) [Entitic vol] NOT REPORTED 6 - 12 fL [place] Segmented neutrophils/100 WBC (Bld) 61 % 39 - 75 % [place] Segs Absolute 4.90 [place] WBC Morphology NOT REPORTED [place] Brain Natriuretic Peptideon 01-14-2020 Natriuretic peptide B (Bld) [Mass/Vol] Pro-BNP Reference Range: [place], [place] Comment on above: Rule Out: <300 Horn Zone: Age <50 300-450 Age 50-75 300-900 Age >75 300-1800 Usually represents mild to moderate HF but other cardiopulmonary causes cannot be ruled out. Rule In: Age <50 >450 Age 50-75 >900 Age >75 >1800 Natriuretic peptide B (Bld) [Mass/Vol] 117 pg/mL <300 [place] Comment on above: Pro-BNP results jackelin ot be compared to BNP results. CBC Auto Differentialon 12-28 Basophils (Bld) [#/Vol] 0.00 10*3/uL [place] Basophils/100 WBC (Bld) 1 % 0 - 2 % [place] Differential Type YES [place] Eosinophils (Bld) [#/Vol] 0.00 10*3/uL [place] Eosinophils/100 WBC (Bld) 0 % 0 - 5 % [place] Erythrocyte distribution width (RBC) [Ratio] 13.8 % 12.1 - 15.2 % [place] Hematocrit (Bld) [Volume fraction] 44.5 % 41 - 53 % [place] Hemoglobin (Bld) [Mass/Vol] 15.0 g/dL 13.5 - 17.5 g/dL [place] Interpretation and review of laboratory results Abnormal [place] Lymphocytes (Bld) [#/Vol] 1.90 10*3/uL [place] Lymphocytes/100 WBC (Bld) 26 % 13 - 44 % [place] MCH (RBC) [Entitic mass] 33.3 pg 26 - 34 pg [place] MCHC (RBC) [Mass/Vol] 33.6 g/dL 31 - 37 g/dL [place] MCV (RBC) [Entitic vol] 99.0 fL 80 - 100 fL [place] Monocytes (Bld) [#/Vol] 0.40 10*3/uL [place] Monocytes/100 WBC (Bld) 6 % 5 - 9 % [place] Platelet mean volume (Bld) [Entitic vol] NOT REPORTED 6 - 12 fL [place] Platelets (Bld) [#/Vol] 135 10*3/uL Low [place] Platelets (Bld) [#/Vol] NOT REPORTED [place] RBC (Bld) [#/Vol] 4.49 10*6/uL Low 4.5 - 5.9 m/uL [place] RBC morphology finding Nom (Bld) NOT REPORTED [place] Segmented neutrophils/100 WBC (Bld) 67 % 39 - 75 % [place] Segs Absolute 4.80 [place] WBC (Bld) [#/Vol] NOT REPORTED per 100 WBC [place] WBC (Bld) [#/Vol] 7.2 10*3/uL [place] WBC Morphology NOT REPORTED [place] Comprehensive Metabolic Pane herminio 01-14-2020 Albumin [Mass/Vol] 4.2 g/dL 3.5 - 5.2 g/dL [place] Albumin/Globulin [Mass ratio] NOT REPORTED [place] ALP [Catalytic activity/Vol] 77 U/L 40 - 129 U/L [place] ALT [Catalytic activity/Vol] 13 U/L 5 - 41 U/L [place] Anion gap [Moles/Vol] 11 mmol/L 9 - 17 mmol/L [place] AST [Catalytic activity/Vol] 22 U/L <40 [place] Bilirubin Ql (U) 1.08 mg/dL 0.3 - 1.2 mg/dL [place] Bun/Cre Ratio 16 [place] Calcium [Mass/Vol] 10.1 mg/dL 8.6 - 10. 4 mg/dL [place] Chloride [Moles/Vol] 105 mmol/L 98 - 10 7 mmol/L [place] CO2 [Moles/Vol] 23 mmol/L 20 - 31 mmol/L [place] Creatinine [Mass/Vol] 0.8 mg/dL 0.7 - 1.2 mg/dL [place] GFR >60 >60 mL/min [place] GFR Non- >60 >60 mL/min [place] GFR/1.73 sq M predicted among non-blacks MDRD (S/P/Bld) [Vol rate/Area] NOT REPORTED [place] GFR/1.73 sq M predicted among non-blacks MDRD (S/P/Bld) [Vol rate/Area] [place] Comment on above: Average GFR for 60-6 9 years old: 85 mL/min/1.73sq m Chronic Kidney Disease: <60 mL/min/1.73sq m Kidney failure: <15 mL/min/1.73sq m eGFR calculated using average adult body mass. Additional eGFR calculator available at: http://www.PowerInbox/multiple_crcl_2011.htm Glucose [Mass/Vol] 104 mg/dL High 70 - 99 mg/dL [place] Interpretation and review of laboratory results Abnormal [place] Potassium [Moles/Vol] 4.5 mmol/L 3.7 - 5.3 mmol/L [place] Protein [Mass/Vol] 7.3 g/dL 6.4 - 8.3 g/dL [place] Sodium [Moles/Vol] 139 mmol/L 135 - 144 mmol/L [place] Urea nitrogen [Mass/Vol] 13 mg/dL 8 - 23 mg/dL [place] D-Dimer, Quantitativeon 12-28 D-Dimer, Quant 0.45 [place], [place] Comment on above: When combined with a low clinical probability, a D dimer value of <0.50 mg/L FEU is considered negative for DVT and PE (negative predictive value of 98%, sensitivity of 97%). If this test is not being used to help rule out DVT and PE, then the following reference range should be utilized: 0.00 - 0.59 mg/L FEU. The D-Dimer assay is intended for use as an aid in the diagnosis of venous thromboembolism (DVT and PE) and the results should be interpreted in conjunction with the patient's medical history, clinical presentation, and other findings. Elevated levels of D-dimer activity can be seen in any state of coagulation activation and is not recommended in patients with therapeutic dose anticoagulant therapy for >24 hours, fibrinolytic therapy within the previous 7 days, trauma or surgery within the previous 4 weeks, disseminated malignancies, aortic aneurysm, sepsis, severe infections, pneumonia, severe skin infections, liver cirrhosis, advanced age, coronary disease, diabetes, and . A very low percentage of patients with DVT may yield D-dimer results below the cutoff of 0.5 mg/L FEU. This is known to be more prevalent in patients with distal DVT. Magnesiumon 01-14-2020 Magnesium [Mass/Vol] 2.2 mg/dL 1.6 - 2 .6 mg/dL [place] Otheron 01-14-2020 Immature granulocytes (Bld) [#/Vol] NOT REPORTED 0 % [place] Troponinon 01-14-2020 Troponin I.cardiac [Mass/Vol] [place] Comment on above: Reference Range: <0.03 Within reference range. 0.03-0.09 Possible myocardial damage. Repeat at appropriate intervals to rule out chronic elevation. >= 0.10 Indicative of myocardial damage. Patients with high levels of Biotin oral intake (i.e >5mg/day) may have falsely decreased Troponin T levels. Samples collected within 8 hours of biotin intake may require additional information for diagnosis. Troponin T.cardiac [Mass/Vol] ug/L <0.03 ng/mL [place] Comment on above: Troponin T results c annot be compared to Troponin-I results. Troponin, High Sensitivity NOT REPORTED 0 - 22 ng/L [place] Troponin I.cardiac [Mass/Vol] [place] Comment on above: Reference Range: <0.03 Within reference range. 0.03-0.09 Possible myocardial damage. Repeat at appropriate intervals to rule out chronic elevation. >= 0.10 Indicative of myocardial damage. Patients with high levels of Biotin oral intake (i.e >5mg/day) may have falsely decreased Troponin T levels. Samples collected within 8 hours of biotin intake may require additional information for diagnosis. Troponin T.cardiac [Mass/Vol] ug/L <0.03 ng/mL [place] Comment on above: Troponin T results c annot be compared to Troponin-I results. Troponin, High Sensitivity NOT REPORTED 0 - 22 ng/L [place] XR CHEST PORTABLEon 01-14-20 20 Negative chest. [place], [place], [place] Incoming Radiant Results From [employer] - 01/14/2020 3:26 PM EDT EXAM: XR CHEST PORTABLE HISTORY: Reason for exam:->palpitations tachycardia, 64-year-old male. COMPARISON: Chest 11/19/2019. TECHNIQUE: AP portable chest 1420 hours. FINDINGS: Heart size normal. Lungs clear. Bony thorax and upper abdomen normal. IMPRESSION: Negative chest. [place], [place] EXAM: XR CHEST PORTABLE HISTORY: Reason for exam:->palpitations tachycardia, 64-year-old male. COMPARISON: Chest 11/19/2019. TECHNIQUE: AP portable chest 1420 hours. FINDINGS: Heart size normal. Lungs clear. Bony thorax and upper abdomen normal. [place] Lipid Panelon 12-03-2019 Cholesterol [Mass/Vol] 111 mg/dL <200 [place], [place] Comment on above: Cholesterol Guidelines: <200 Desirable 200-240 Borderline >240 Undesirable Cholesterol in HDL [Mass/Vol] 38 mg/dL Low >40 [place] Comment on above: HDL Guidelines: <40 Undesirable 40-59 Borderline >59 Desirable Cholesterol in LDL [Mass/Vol] 60 mg/dL 0 - 130 mg/dL [place] Comment on above: LDL Guidelines: <100 Desirable 100-129 Near to/above Desirable 130-159 Borderline >159 Undesirable Direct (measured) LDL and calculated LDL are not interchangeable tests. Cholesterol in VLDL [Mass/Vol] NOT REPORTED 1 - 30 mg/dL [place] Cholesterol.total/Cho lesterol in HDL [Mass ratio] 2.9 {ratio} <5 [place] Interpretation and review of laboratory results Abnormal [place] Triglyceride [Mass/Vol] 64 mg/dL <150 [place] Comment on above: Triglyceride Guidelines: <150 Desirable 150-199 Borderline 200-499 High >499 Very high Based on AHA Guidelines for fasting triglyceride, February 2012. Patient Fasting?on 0 Patient Fasting? YES [place] APTTon 11-19-2019 aPTT Coag (Bld) [Time] 24.7 s [place], [place] Comment on above: PTT Therapeutic Range: 61.7-88.4 Therapeutic range corresponds to plasma heparin levels of 0.3-0.7 U/mL. Brain Natriuretic Peptideon 11-19-2019 Natriuretic peptide B (Bld) [Mass/Vol] 78 pg/mL <300 [place] Comment on above: Pro-BNP results jackelin ot be compared to BNP results. Natriuretic peptide B (Bld) [Mass/Vol] Pro-BNP Reference Range: [place], [place] Comment on above: Rule Out: <300 Horn Zone: Age <50 300-450 Age 50-75 300-900 Age >75 300-1800 Usually represents mild to moderate HF but other cardiopulmonary causes cannot be ruled out. Rule In: Age <50 >450 Age 50-75 >900 Age >75 >1800 CBC Auto Differentialon 10-29 Basophils (Bld) [#/Vol] 0.00 10*3/uL [place] Basophils/100 WBC (Bld) 1 % 0 - 2 % [place] Differential Type YES [facility] [place] Eosinophils (Bld) [#/Vol] 0.00 10*3/uL [place] Eosinophils/100 WBC (Bld) 1 % 0 - 5 % [place] Erythrocyte distribution width (RBC) [Ratio] 13.8 % 12.1 - 15.2 % [place] Hematocrit (Bld) [Volume fraction] 42.7 % 41 - 53 % [place] Hemoglobin (Bld) [Mass/Vol] 14.7 g/dL 13.5 - 17.5 g/dL [place] Interpretation and review of laboratory results Abnormal [place] Lymphocytes (Bld) [#/Vol] 2.40 10*3/uL [place] Lymphocytes/100 WBC (Bld) 33 % 13 - 44 % [place] MCH (RBC) [Entitic mass] 34.5 pg High 26 - 34 pg [place] MCHC (RBC) [Mass/Vol] 34.4 g/dL 31 - 37 g/dL [place] MCV (RBC) [Entitic vol] 100.3 fL High 80 - 100 fL [place] Monocytes (Bld) [#/Vol] 0.50 10*3/uL [place] Monocytes/100 WBC (Bld) 7 % 5 - 9 % [place] Platelet mean volume (Bld) [Entitic vol] NOT REPORTED 6 - 12 fL [place] Platelets (Bld) [#/Vol] NOT REPORTED [place] Platelets (Bld) [#/Vol] 112 10*3/uL Low [place] RBC (Bld) [#/Vol] 4.26 10*6/uL Low 4.5 - 5.9 m/uL [place] RBC morphology finding Nom (Bld) NOT REPORTED [place] Segmented neutrophils/100 WBC (Bld) 58 % 39 - 75 % [place] Segs Absolute 4.30 [place] WBC (Bld) [#/Vol] 7.3 10*3/uL [place] WBC (Bld) [#/Vol] NOT REPORTED per 100 WBC [place] WBC Morphology NOT REPORTED [place] Comprehensive Metabolic Pane l w/ Reflex to MGon 11-19-2019 Albumin [Mass/Vol] 4 g/dL 3.5 - 5.2 g/dL [place] Albumin/Globulin [Mass ratio] NOT REPORTED [place] ALP [Catalytic activity/Vol] 83 U/L 40 - 129 U/L [place] ALT [Catalytic activity/Vol] 15 U/L 5 - 41 U/L [place] Anion gap [Moles/Vol] 9 mmol/L 9 - 17 mmol/L [place] AST [Catalytic activity/Vol] 22 U/L <40 [place] Bilirubin Ql (U) 0.65 mg/dL 0.3 - 1.2 mg/dL [place] Bun/Cre Ratio 19 [place] Calcium [Mass/Vol] 9.8 mg/dL 8.6 - 10. 4 mg/dL [place] Chloride [Moles/Vol] 106 mmol/L 98 - 10 7 mmol/L [place] CO2 [Moles/Vol] 23 mmol/L 20 - 31 mmol/L [place] Creatinine [Mass/Vol] 0.81 mg/dL 0.7 - 1.2 mg/dL [place] GFR >60 >60 mL/min [place] GFR Non- >60 >60 mL/min [place] GFR/1.73 sq M predicted among non-blacks MDRD (S/P/Bld) [Vol rate/Area] NOT REPORTED [place] GFR/1.73 sq M predicted among non-blacks MDRD (S/P/Bld) [Vol rate/Area] [place] Comment on above: Average GFR for 60-6 9 years old: 85 mL/min/1.73sq m Chronic Kidney Disease: <60 mL/min/1.73sq m Kidney failure: <15 mL/min/1.73sq m eGFR calculated using average adult body mass. Additional eGFR calculator available at: http://www.Imitix.Lexy/multiple_crcl_2012.htm Glucose [Mass/Vol] 102 mg/dL High 70 - 99 mg/dL [place] Interpretation and review of laboratory results Abnormal [place] Potassium [Moles/Vol] 4.4 mmol/L 3.7 - 5.3 mmol/L [place] Protein [Mass/Vol] 7.3 g/dL 6.4 - 8.3 g/dL [place] Sodium [Moles/Vol] 138 mmol/L 135 - 144 mmol/L [place] Urea nitrogen [Mass/Vol] 15 mg/dL 8 - 23 mg/dL [place] D-Dimer, Quantitativeon 10-29 D-Dimer, Quant 0.40 [place], [place] Comment on above: Elevated levels of D dimer can be seen in any state of coagulation activation including DVT, PE, arterial thrombosis, DIC, inflamatory disease, trauma, malignancy, sepsis, infection, hematoma, liver disease, post surgical state, , atherosclerosis, old age. When combined with a low clinical probability, a D dimer value of <0.50 mg/L is considered negative for DVT and PE (negative predictive value of 98%). Otheron 11-19-2019 Immature granulocytes (Bld) [#/Vol] NOT REPORTED [place] Protime-INRon 11-19-2019 INR Coag (PPP) [Relative time] 1.0 {INR} [place], [place] Comment on above: * THERAPY INDICATIONS * REFERENCE RANGES Pts not on anti-coagulants 1.0 - 1.5 INR Low risk pts on anti-coagulants 2.0 - 3.0 INR High risk pts on anti-coagulants 2.5 - 3.5 INR Prevention of atrial thrombo-embolism 3.0 - 4.5 INR PT Coag (PPP) [Time] 10.3 s [place] Troponinon 11-19-2019 Troponin I.cardiac [Mass/Vol] [place], [place] Comment on above: Reference Range: <0.03 Within reference range. 0.03-0.09 Possible myocardial damage. Repeat at appropriate intervals to rule out chronic elevation. >= 0.10 Indicative of myocardial damage. Patients with high levels of Biotin oral intake (i.e >5mg/day) may have falsely decreased Troponin T levels. Samples collected within 8 hours of biotin intake may require additional information for diagnosis. Troponin T.cardiac [Mass/Vol] ug/L <0.03 ng/mL [place] Comment on above: Troponin T results c annot be compared to Troponin-I results. Troponin, High Sensitivity NOT REPORTED 0 - 22 ng/L [place] Troponin I.cardiac [Mass/Vol] [place] Comment on above: Reference Range: <0.03 Within reference range. 0.03-0.09 Possible myocardial damage. Repeat at appropriate intervals to rule out chronic elevation. >= 0.10 Indicative of myocardial damage. Patients with high levels of Biotin oral intake (i.e >5mg/day) may have falsely decreased Troponin T levels. Samples collected within 8 hours of biotin intake may require additional information for diagnosis. Troponin T.cardiac [Mass/Vol] ug/L <0.03 ng/mL [place] Comment on above: Troponin T results c annot be compared to Troponin-I results. Troponin, High Sensitivity NOT REPORTED 0 - 22 ng/L [place] XR CHEST PORTABLEon 11-19-19 20 CHEST 3 VIEWS COMPARISON: 11/02/2019. HISTORY: Palpitations. FINDINGS: The lungs are clear of infiltrates. The cardiomediastinal silhouette, bony thorax, and surrounding soft tissue structures show no additional abnormalities of significance. A hiatal hernia is suspected. Minimal bands of scarring or atelectasis is seen in the lung bases incidentally. There are old healed fracture deformities of posterolateral left sixth and seventh ribs. [place], [place], [place] Incoming Radiant Results From [employer] - 11/19/2019 4:21 PM EDT CHEST 3 VIEWS COMPARISON: 11/02/2019. HISTORY: Palpitations. FINDINGS: The lungs are clear of infiltrates. The cardiomediastinal silhouette, bony thorax, and surrounding soft tissue structures show no additional abnormalities of significance. A hiatal hernia is suspected. Minimal bands of scarring or atelectasis is seen in the lung bases incidentally. There are old healed fracture deformities of posterolateral left sixth and seventh ribs. IMPRESSION: Unchanged chest with no acute pulmonary disease. [place] Unchanged chest with no acute pulmonary disease. [place] STRESS TEST REPORTon 019 Samantha Martinez MD - 05/02/2019 10:05 AM EST [facility] [address] [place] [address] CARDIAC STRESS TEST PATIENT NAME: NORY DSOUZA : 1955 MED REC NO: [id number] ROOM: ACCOUNT NO: [id number] ADMIT DATE: 05/01/2019 PROVIDER: Samantha Martinez DATE OF STUDY: 05/01/2019 Cardiovascular Diagnostics Department Ordering Provider: Doug Arteaga MD Primary Care Provider: Doug Arteaga MD Interpreting Physician: Samantha Martinez MD MYOCARDIAL PERFUSION STRESS IMAGING The stress ECG results are reported separately. NUCLEAR IMAGING RESULTS: The overall quality of the study is good. Mild/moderate attenuation artifact was seen. There is no evidence of abnormal lung uptake. Additionally, the right ventricle appears normal. The left ventricular cavity is noted to be normal in size on stress images. There is no evidence of transient ischemic dilatation (TID) of the left ventricle. Gated SPECT imaging reveals normal myocardial thickening and wall motion with a calculated left ventricular ejection fraction (EF) of 71%. The rest images demonstrated a small/moderate perfusion abnormality of mild/moderate intensity in the inferolateral and inferior region(s) which may be due to artifact. On stress imaging, a small/moderate perfusion abnormality of mild/moderate intensity was noted in the inferolateral and inferior region(s) which may be due to artifact. IMPRESSION: 1. Abnormal myocardial perfusion study. There is a small/moderate perfusion defect of mild/moderate intensity in the inferolateral and inferior region(s) during stress imaging, which is most consistent with ischemia but may be due to artifact. 2. Global left ventricular systolic function was normal without regional wall motion abnormalities. Overall these results are most consistent with an intermediate risk for significant coronary artery disease. Additional testing including cardiac catheterization may be indicated. The results of this test were discussed with Dr. Jimenez on 05/01/2019 at 5:24 p.m. SAMANTHA MARTINEZ BRYAN/JESSICA_EDIT Doc#: Unknown CC: Doug Arteaga [facility]ENTER[facility] Otheron 05-01-2019 Radiology exam is complete. No Radiologist dictation. Please follow up with ordering provider. [facility] [place] Basic Metabolic Panel w/ Ref pia to MGon 04-04-2019 Anion gap [Moles/Vol] 13 mmol/L 9 - 17 mmol/L [facility] [place] Bun/Cre Ratio 13 [place] Calcium [Mass/Vol] 9.5 mg/dL 8.6 - 10. 4 mg/dL [place] Chloride [Moles/Vol] 103 mmol/L 98 - 10 7 mmol/L [place] CO2 [Moles/Vol] 22 mmol/L 20 - 31 mmol/L [place] Creatinine [Mass/Vol] 0.91 mg/dL 0.7 - 1.2 mg/dL [place] GFR >60 >60 mL/min [place] GFR Non- >60 >60 mL/min [place] GFR/1.73 sq M predicted among non-blacks MDRD (S/P/Bld) [Vol rate/Area] NOT REPORTED [place] GFR/1.73 sq M predicted among non-blacks MDRD (S/P/Bld) [Vol rate/Area] [place] Comment on above: Average GFR for 60-6 9 years old: 85 mL/min/1.73sq m Chronic Kidney Disease: <60 mL/min/1.73sq m Kidney failure: <15 mL/min/1.73sq m eGFR calculated using average adult body mass. Additional eGFR calculator available at: http://www.[employer]/multiple_crcl_2012.htm Glucose [Mass/Vol] 100 mg/dL High 70 - 99 mg/dL [place] Interpretation and review of laboratory results Abnormal [place] Potassium [Moles/Vol] 4.4 mmol/L 3.7 - 5.3 mmol/L [place] Sodium [Moles/Vol] 138 mmol/L 135 - 144 mmol/L [place] Urea nitrogen [Mass/Vol] 12 mg/dL 8 - 23 mg/dL [place] Brain Natriuretic Peptideon 04-04-2019 Natriuretic peptide B (Bld) [Mass/Vol] 188 pg/mL <300 [place] Comment on above: Pro-BNP results jackelin ot be compared to BNP results. Natriuretic peptide B (Bld) [Mass/Vol] Pro-BNP Reference Range: [place] Comment on above: Rule Out: <300 Horn Zone: Age <50 300-450 Age 50-75 300-900 Age >75 300-1800 Usually represents mild to moderate HF but other cardiopulmonary causes cannot be ruled out. Rule In: Age <50 >450 Age 50-75 >900 Age >75 >1800 CBC Auto Differentialon 11-0 6-2019 Basophils (Bld) [#/Vol] 0.00 10*3/uL [place], [place] Basophils/100 WBC (Bld) 0 % 0 - 2 % [place], [place] Differential Type YES [place] Eosinophils (Bld) [#/Vol] 0.00 10*3/uL [place] Eosinophils/100 WBC (Bld) 0 % 0 - 5 % [place] Erythrocyte distribution width (RBC) [Ratio] 14.1 % 12.1 - 15.2 % [place] Hematocrit (Bld) [Volume fraction] 43.4 % 41 - 53 % [place] Hemoglobin (Bld) [Mass/Vol] 14.6 g/dL 13.5 - 17.5 g/dL [place] Interpretation and review of laboratory results Abnormal [place] Lymphocytes (Bld) [#/Vol] 2.10 10*3/uL [place] Lymphocytes/100 WBC (Bld) 24 % 13 - 44 % [place] MCH (RBC) [Entitic mass] 33.9 pg 26 - 34 pg [place] MCHC (RBC) [Mass/Vol] 33.7 g/dL 31 - 37 g/dL [place] MCV (RBC) [Entitic vol] 100.5 fL High 80 - 100 fL [place] Monocytes (Bld) [#/Vol] 0.50 10*3/uL [place] Monocytes/100 WBC (Bld) 6 % 5 - 9 % [place] Platelet mean volume (Bld) [Entitic vol] NOT REPORTED 6 - 12 fL [place] Platelets (Bld) [#/Vol] 133 10*3/uL Low [place] Platelets (Bld) [#/Vol] NOT REPORTED [place] RBC (Bld) [#/Vol] 4.32 10*6/uL Low 4.5 - 5.9 m/uL [place] RBC morphology finding Nom (Bld) NOT REPORTED [place] Segmented neutrophils/100 WBC (Bld) 70 % 39 - 75 % [place] Segs Absolute 6.10 [facility] [place] WBC (Bld) [#/Vol] 8.8 10*3/uL [place] WBC (Bld) [#/Vol] NOT REPORTED per 100 WBC [place] WBC Morphology NOT REPORTED [place] Otheron 04-04-2019 Immature granulocytes (Bld) [#/Vol] NOT REPORTED 0 % [place] Troponinon 04-04-2019 Troponin I.cardiac [Mass/Vol] [place] Comment on above: Reference Range: <0.03 Within reference range. 0.03-0.09 Possible myocardial damage. Repeat at appropriate intervals to rule out chronic elevation. >= 0.10 Indicative of myocardial damage. Patients with high levels of Biotin oral intake (i.e >5mg/day) may have falsely decreased Troponin T levels. Samples collected within 8 hours of biotin intake may require additional information for diagnosis. Troponin T.cardiac [Mass/Vol] ug/L <0.03 ng/mL [place] Comment on above: Troponin T results c annot be compared to Troponin-I results. Troponin, High Sensitivity NOT REPORTED 0 - 22 ng/L [place] Troponin I.cardiac [Mass/Vol] [place] Comment on above: Reference Range: <0.03 Within reference range. 0.03-0.09 Possible myocardial damage. Repeat at appropriate intervals to rule out chronic elevation. >= 0.10 Indicative of myocardial damage. Patients with high levels of Biotin oral intake (i.e >5mg/day) may have falsely decreased Troponin T levels. Samples collected within 8 hours of biotin intake may require additional information for diagnosis. Troponin T.cardiac [Mass/Vol] ug/L <0.03 ng/mL [place] Comment on above: Troponin T results c annot be compared to Troponin-I results. Troponin, High Sensitivity NOT REPORTED 0 - 22 ng/L [facility], [place] Vital Signs Date Time Vital Sign Value Performing Clinician Facility 10-17-2023 20:00-0400 Body height 170.2 cm [facility] Schedule [facility] 10-17-2023 20:00-0400 Body mass index (BMI) [Ratio] 36.65 kg/m2 [facility] 10-17-2023 20:00-0400 Body weight 106.14 kg [facility] Schedule [facility] 04-21-2023 13:22-0500 Body temperature 98.06 [degF] Robson Cartwright [facility] 04-21-2023 13:22-0500 Diastolic blood pressure 74 mm[Hg] Robson Cartwright [facility] 04-21-2023 13:22-0500 Heart rate 68 /min Robson Cartwright [facility] 04-21-2023 13:22-0500 Respiratory rate 18 /min Robson Cartwright [facility] 04-21-2023 13:22-0500 SaO2% (BldA) [Mass fraction] 97 % Robson Cartwright [facility] 04-21-2023 13:22-0500 Systolic blood pressure 140 mm[Hg] Robson Cartwright [facility] 11-27-2022 19:00-0400 Diastolic blood pressure 78 mm[Hg] Grant Vazquez [facility] 11-27-2022 19:00-0400 Heart rate 62 /min Grant Vazquez [facility] 11-27-2022 19:00-0400 Mean blood pressure 92 mm[Hg] Grant George [facility] 11-27-2022 19:00-0400 Respiratory rate 18 /min Grant George [facility] 11-27-2022 19:00-0400 SaO2% (BldA) [Mass fraction] 98 % Grant George [facility] 11-27-2022 19:00-0400 Systolic blood pressure 120 mm[Hg] Grant George [facility] 11-27-2022 18:30-0400 Diastolic blood pressure 76 mm[Hg] Grant George [facility] 11-27-2022 18:30-0400 Heart rate 49 /min Grant George [facility] 11-27-2022 18:30-0400 Mean blood pressure 97 mm[Hg] Grant George [facility] 11-27-2022 18:30-0400 Respiratory rate 17 /min Grant George [facility] 11-27-2022 18:30-0400 SaO2% (BldA) [Mass fraction] 96 % Grant George [facility] 11-27-2022 18:30-0400 Systolic blood pressure 140 mm[Hg] Grant George [facility] 11-27-2022 18:00-0400 Diastolic blood pressure 93 mm[Hg] Grant George [facility] 11-27-2022 18:00-0400 Heart rate 60 /min Grant George [facility] 11-27-2022 18:00-0400 Mean blood pressure 101 mm[Hg] Grant George [facility] 11-27-2022 18:00-0400 SaO2% (BldA) [Mass fraction] 97 % Grant George [facility] 11-27-2022 18:00-0400 Systolic blood pressure 116 mm[Hg] Grant George [facility] 11-27-2022 17:30-0400 Heart rate 90 /min Grant George [facility] 11-27-2022 16:21-0400 Body temperature 97.52 [degF] Grant Vazquez [facility] 11-27-2022 16:21-0400 Heart rate 71 /min Grant George [facility] 11-27-2022 16:21-0400 Respiratory rate 16 /min Grant Vazquez [facility] 05-16-2022 00:16-0500 Diastolic blood pressure 95 mm[Hg] Alec Александр [facility] 05-16-2022 00:16-0500 Heart rate 84 /min Alec Александр [facility] 05-16-2022 00:16-0500 Systolic blood pressure 134 mm[Hg] Alec Александр [facility] 05-16-2022 00:15-0500 Diastolic blood pressure 97 mm[Hg] Alec Александр [facility] 05-16-2022 00:15-0500 Heart rate 84 /min Alec Александр [facility] 05-16-2022 00:15-0500 Mean blood pressure 109 mm[Hg] Alec Александр [facility] 05-16-2022 00:15-0500 Respiratory rate 11 /min Alec Александр [facility] 05-16-2022 00:15-0500 SaO2% (BldA) [Mass fraction] 95 % Alec Александр [facility] 05-16-2022 00:15-0500 Systolic blood pressure 134 mm[Hg] Alec Александр [facility] 05-15-2022 21:42-0500 Diastolic blood pressure 99 mm[Hg] Alec Александр [facility] 05-15-2022 21:42-0500 Heart rate 80 /min Alec Александр [facility] 05-15-2022 21:42-0500 Systolic blood pressure 130 mm[Hg] Alec Александр [facility] 05-15-2022 21:37-0500 Hourly Rounding Alec Александр [facility] 05-15-2022 21:37-0500 Promise to Return Alecjose Fountain [facility] 05-15-2022 21:36-0500 Heart rate 78 /min Alec Александр [facility] 05-15-2022 21:36-0500 Mean blood pressure 109 mm[Hg] Alec Александр [facility] 05-15-2022 21:36-0500 Respiratory rate 28 /min Alec Александр [facility] 05-15-2022 21:36-0500 SaO2% (BldA) [Mass fraction] 94 % Alec Александр [facility] 05-15-2022 20:48-0500 Heart rate 84 /min Alec Александр [facility] 05-15-2022 20:48-0500 Respiratory rate 24 /min Alec Александр [facility] 05-15-2022 20:48-0500 SaO2% (BldA) [Mass fraction] 96 % Alec Александр [facility] 05-15-2022 20:30-0500 Mean blood pressure 99 mm[Hg] Alec Fountain [facility] 05-15-2022 19:47-0500 Body temperature 97.7 [degF] Alec Fountain [facility] 05-15-2022 19:47-0500 Heart rate 79 /min Alec Fountain [facility] 05-15-2022 19:47-0500 Respiratory rate 19 /min Alec Fountain [facility] 01-03-2022 01:23-0400 Nursing Progress Note Reason Other: discharge instructions given. pt verbalized understanding. sister picking pt up Miguelinan Shira [facility] 01-02-2022 22:55-0400 Body temperature 98.78 [degF] Miguelinan Dokken [facility] 01-02-2022 22:55-0400 Diastolic blood pressure 76 mm[Hg] Zackinn Dokken [facility] 01-02-2022 22:55-0400 Heart rate 79 /min Miguelinan Dokken [facility] 01-02-2022 22:55-0400 Respiratory rate 18 /min Miguelinan Dokken [facility] 01-02-2022 22:55-0400 SaO2% (BldA) [Mass fraction] 97 % Zackinn Dokken [facility] 01-02-2022 22:55-0400 Systolic blood pressure 128 mm[Hg] Zackinn Dokken [facility] 09-01-2021 13:20-0400 Diastolic blood pressure 83 mm[Hg] Juan A SCHAEFER [facility] 09-01-2021 13:20-0400 Heart rate 73 /min Juan Aalex WALLSSLIN [facility] 09-01-2021 13:20-0400 Systolic blood pressure 132 mm[Hg] Juan A SILVANO [facility] 09-01-2021 12:00-0400 Blood Pressure Location Juan Aalex WALLSSLIN [facility] 09-01-2021 12:00-0400 Body temperature 97.7 [degF] Juan A WALLSSLIN [facility] 09-01-2021 12:00-0400 Hourly Rounding Juan Aalex WALLSSLIN [facility] 09-01-2021 12:00-0400 Mean blood pressure 99 mm[Hg] Juan Aalex [facility] [facility] 09-01-2021 12:00-0400 SaO2% (BldA) [Mass fraction] 97 % Juan Aalex WALLSSLIN [facility] 09-01-2021 11:00-0400 Promise to Return Juan Aalex WALLSSLIN [facility] 09-01-2021 08:44-0400 Diastolic blood pressure 85 mm[Hg] Juan Aalex WALLSSLIN [facility] 09-01-2021 08:44-0400 Heart rate 61 /min Juan Aalex WALLSSLIN [facility] 09-01-2021 08:44-0400 Systolic blood pressure 147 mm[Hg] Juan A SILVANO [facility] 09-01-2021 08:00-0400 Blood Pressure Location Juan Aalex WALLSSLIN [facility] 09-01-2021 08:00-0400 Mean blood pressure 106 mm[Hg] Juan Aalex WALLSSLIN [facility] 09-01-2021 08:00-0400 SaO2% (BldA) [Mass fraction] 99 % Juan Aalex WALLSSLIN [facility] 08-31-2021 15:40-0400 Body temperature 97.52 [degF] Juan Aalex WALLSSLIN [facility] 08-31-2021 15:40-0400 Heart rate 71 /min Juan Aalex WALLSSLIN [facility] 08-31-2021 15:40-0400 Mean blood pressure 96 mm[Hg] Juan Aalex WALLSSLIN [facility] 08-31-2021 15:40-0400 SaO2% (BldA) [Mass fraction] 99 % Juan Aalex WALLSSLIN [facility] 08-31-2021 14:00-0400 Heart rate 68 /min Juan Aalex WALLSSLIN [facility] 08-31-2021 12:38-0400 Heart rate 78 /min Juan Aalex WALLSSLIN [facility] 08-31-2021 12:38-0400 Mean blood pressure 103 mm[Hg] Juan Aalex WALLSSLIN [facility] 08-31-2021 12:38-0400 Respiratory rate 16 /min Juan Aalex WALLSSLIN [facility] 08-31-2021 07:44-0400 Respiratory rate 18 /min Juan Aalex WALLSSLIN [facility] 08-31-2021 03:05-0400 Respiratory rate 16 /min Juan Aalex WALLSSLIN [facility] 08-30-2021 16:25-0400 Blood Pressure Location Juan A SCHAEFER [facility] 08-30-2021 16:25-0400 BP/Pulse Patient Position Juan A SCHAEFER [facility] 08-30-2021 16:25-0400 Mean blood pressure 83 mm[Hg] Juan A SCHAEFER [facility] 08-30-2021 11:44-0400 BP/Pulse Patient Position Juan A SCHAEFER [facility] 08-30-2021 11:44-0400 Mean blood pressure 88 mm[Hg] Juan A SCHAEFER [facility] 08-30-2021 08:59-0400 BP/Pulse Patient Position Juan A SCHAEFER [facility] 08-30-2021 04:15-0400 Heart rate 86 /min Juan A SCHAEFER [facility] 08-30-2021 02:30-0400 Nursing Progress Note Reason Other: Resting on cart, resp even and non labored, skin pink warm and dry, Updated on POC, call light in reach. Juan A SCHAEFER [facility] 08-30-2021 02:30-0400 Respiratory rate 11 /min Juan A SCHAEFER [facility] 08-30-2021 01:27-0400 Heart rate 82 /min Juan A SCHAEFER [facility] 06-02-2020 15:20-0500 BP Diastolic 68 mm[Hg] [facility] 06-02-2020 15:20-0500 BP Systolic 120 mm[Hg] [facility] 06-02-2020 15:20-0500 Pulse (Heart Rate) 55 /min [facility], [place] 06-02-2020 15:20-0500 Pulse Oximetry 100 % [facility] 06-02-2020 15:20-0500 Respiratory Rate 18 /min [facility] 06-02-2020 13:10-0500 BMI (Body Mass Index) 32.93 kg/m2 [facility] 06-02-2020 13:10-0500 Body Temperature 97.59 [degF] [facility] 06-02-2020 13:10-0500 Body weight 92.53 kg [facility] 01-19-2020 16:30-0400 Pulse (Heart Rate) 66 /min Hardeep Merino [facility], [place] 01-19-2020 16:30-0400 Pulse Oximetry 97 % Hardeep Merino [facility] 01-19-2020 16:30-0400 Respiratory Rate 15 /min Hardeep Merino [facility] 01-19-2020 15:23-0400 BMI (Body Mass Index) 30.47 kg/m2 Hardeep Merino [facility] 01-19-2020 15:23-0400 Body Temperature 98.29 [degF] Hardeep Merino [facility] 01-19-2020 15:23-0400 Body weight 85.64 kg Hardeep Merino [facility] 01-19-2020 15:23-0400 BP Diastolic 83 mm[Hg] Hardeep Merino [facility] 01-19-2020 15:23-0400 BP Systolic 143 mm[Hg] Hardeep Merino [facility] 01-14-2020 16:51-0400 BP Diastolic 78 mm[Hg] [facility] 01-14-2020 16:51-0400 BP Systolic 118 mm[Hg] [facility] 01-14-2020 16:51-0400 Pulse (Heart Rate) 65 /min [facility] 01-14-2020 16:51-0400 Pulse Oximetry 99 % [facility] 01-14-2020 16:51-0400 Respiratory Rate 14 /min [facility] 01-14-2020 13:48-0400 BMI (Body Mass Index) 30.47 kg/m2 [facility] 01-14-2020 13:48-0400 Body Temperature 98.1 [degF] [facility] 01-14-2020 13:48-0400 Body weight 85.64 kg [facility] 01-14-2020 13:48-0400 Height 167.6 cm [facility] 11-19-2019 17:35-0400 BP Diastolic 77 mm[Hg] [facility] 11-19-2019 17:35-0400 BP Systolic 111 mm[Hg] [facility] 11-19-2019 17:35-0400 Pulse (Heart Rate) 67 /min [facility] 11-19-2019 17:35-0400 Pulse Oximetry 98 % [facility] 11-19-2019 17:35-0400 Respiratory Rate 17 /min [facility] 11-19-2019 15:40-0400 BMI (Body Mass Index) 31.34 kg/m2 [facility] 11-19-2019 15:40-0400 Body Temperature 98.4 [degF] [facility] 11-19-2019 15:40-0400 Body weight 90.77 kg [facility] 11-19-2019 15:40-0400 Height 170.2 cm [facility] 04-04-2019 17:18-0500 BP Diastolic 69 mm[Hg] [facility] 04-04-2019 17:18-0500 BP Systolic 110 mm[Hg] [facility] 04-04-2019 17:18-0500 Pulse (Heart Rate) 65 /min [facility] 04-04-2019 17:18-0500 Pulse Oximetry 99 % [facility] 04-04-2019 17:18-0500 Respiratory Rate 17 /min [facility] 04-04-2019 16:14-0500 BMI (Body Mass Index) 33.89 kg/m2 [facility] 04-04-2019 16:14-0500 Body weight 95.25 kg [facility] 04-04-2019 16:14-0500 Height 167.6 cm [facility] 04-04-2019 16:11-0500 Body Temperature 97.9 [degF] [facility] Encounters Encounter Date Encounter Type Care Provider Facility Start: 03-23-2024 End: 03-25-2024 [facility] Start: 03-23-2024 End: 03-25-2024 Subsequent hospital visit by physician Doug Arteaga MD Work Phone: [facility] Comment on above: Leg edema, left Start: 11-16-2023 End: 11-16-2023 ambulatory DOUG Jaison [facility] Start: 11-02-2023 End: 11-04-2023 [facility] Start: 11-02-2023 End: 11-04-2023 Subsequent hospital visit by physician Doug Arteaga MD Work Phone: [facility] CT Scan Comment on above: Personal history of tobacco use Screening for AAA (a bdominal aortic aneurysm) Start: 10-17-2023 End: 10-17-2023 ambulatory DOUG DE LEONJOSE ARMANDOOLIVIA [facility] Start: 10-17-2023 End: 10-17-2023 Subsequent hospital visit by physician [facility] Schedule [facility] Comment on above: Excessive daytime sl eepiness; Other sleep apnea Start: 09-30-2023 End: 09-30-2023 ambulatory REAGANBARRY Soto ARYAN Not Available Start: 06-28-2023 End: 06-30-2023 ambulatory [facility] Start: 05-12-2023 End: 05-14-2023 [facility] Start: 04-28-2023 End: 04-29-2023 ambulatory Raul Vanessa [facility] Start: 04-28-2023 End: 04-28-2023 Patient encounter procedure Raul Vanessa [facility] Start: 04-21-2023 End: 04-21-2023 Emergency department patient visit Robson Cartwright [facility] Start: 04-21-2023 End: 04-21-2023 Emergency department patient visit Robson Cartwright [facility] Start: 11-27-2022 End: 11-27-2022 Emergency department patient visit Grant Vazquez [facility] Start: 11-27-2022 End: 11-27-2022 Emergency department patient visit Grant Vazquez [facility] Start: 10-11-2022 End: 10-12-[address] DOCTOR BAI Facility:[facility] Start: 06-26-2022 End: 06-26-[address] VIDYA Manzo Facility: Start: 06-05-2022 End: 06-05-2022 Emergency department patient visit Alec Fountain [facility] Start: 05-15-2022 End: 05-16-2022 Emergency department patient visit Alec Fountain [facility] Start: 05-15-2022 End: 05-16-2022 Emergency department patient visit Alec Fountain [facility] Start: 02-11-2022 End: 02-11-[address] VIDYA Manzo Facility: Start: 01-02-2022 End: 01-03-2022 Emergency department patient visit Jose Daniel Silva [facility] Start: 08-30-2021 End: 09-01-2021 Observation Juan A SCHAEFER [facility] Start: 03-05-2021 End: 03-05-2021 Subsequent hospital visit by physician Doug Arteaga MD Work Phone: [facility] Comment on above: Screening PSA (prost ate specific antigen) Start: 02-16-2021 End: 02-16-2021 Subsequent hospital visit by physician Doug Arteaga MD Work Phone: [facility] Comment on above: Hypercholesteremia; Essential hypertension Start: 06-02-2020 End: 06-02-2020 Emergency department patient visit Pan Goulditrov Work Phone: [facility] Comment on above: Diplopia (Primary Dx ); Nonintractable episodic headache, unspecified headache type Start: 04-09-2020 End: 04-09-2020 Subsequent hospital visit by physician Doug Arteaga [facility] Comment on above: Skin lesion of left arm; Squamous cell cancer of skin of forearm, left Start: 03-06-2020 End: 03-06-2020 Subsequent hospital visit by physician Doug Arteaga [facility] Start: 01-19-2020 End: 01-19-2020 Emergency department patient visit Hardeep Wilber Work Phone: [facility] ED Comment on above: Arm paresthesia, rig ht (Primary Dx) Start: 01-14-2020 End: 01-14-2020 Emergency department patient visit Pan Barragan Work Phone: [facility] ED Comment on above: Palpitations (Primar y Dx) Start: 12-03-2019 End: 12-03-2019 Subsequent hospital visit by physician Chalino Ekg [facility] EKG Comment on above: Palpitations Hypercholesteremia; Essential hypertension Start: 11-19-2019 End: 11-19-2019 Emergency department patient visit Devin Lui Work Phone: [facility] ED Comment on above: Tachycardia (Primary Dx) Start: 07-30-2019 End: 07-30-2019 Subsequent hospital visit by physician Doug Arteaga [facility] Start: 06-07-2019 End: 06-07-2019 Subsequent hospital visit by physician Chalino Ekg [facility] E[facility] Comment on above: Palpitations Start: 05-02-2019 End: 05-02-2019 Subsequent hospital visit by physician Doug Arteaga [facility] Comment on above: Burning with urinati on Start: 05-01-2019 End: 05-03-2019 Subsequent hospital visit by physician Chalino Stress Rm [facility] Comment on above: Arrived Start: 04-04-2019 End: 04-04-2019 Subsequent hospital visit by physician Doug Arteaga [facility] Start: 04-04-2019 End: 04-04-2019 Emergency department patient visit Siomara Kamara Roberto Work Phone: [facility] ED Comment on above: Palpitations (Primar y Dx) Start: 05-12-2017 Refill Kati L. Matilde cesar OFFICE BOOKKEEPER Work Phone: [facility] Comment on above: Medication Refill Start: 04-17-2017 Refill Kati L. Matilde cesar OFFICE BOOKKEEPER Work Phone: [facility] Comment on above: Medication Refill Procedures Date Procedure Procedure Detail Performing Clinician Start: 03-23-2024 Dup-scan xtr veins unilateral/limited study Doug Arteaga MD Work Phone: Start: 11-02-2023 CT Chest for screening Doug Arteaga MD Work Phone: Start: 11-02-2023 Us abdominal aorta r eal time screen study aaa Doug Arteaga MD Work Phone: Start: 10-11-[address] VIDYA Manzo Comment on above: Performed By: #### P [facility] #### [facility] [address] [place] [address] Dr. Rufina Ramirez Start: 03-05-2021 PSA screening Doug casillas MD Work Phone: Comment on above: The [employer] ECLIA as say is used. Results obtained with different assay methods cannot be used interchangeably. Start: 03-05-2021 PSA screening Doug bowman MD Work Phone: Start: 02-16-2021 Comprehensive metabo lic panel Doug Arteaga MD Work Phone: Start: 02-16-2021 Lipid panel Doug stallworth MD Work Phone: Start: 02-16-2021 PATIENT FASTING? Doug Arteaga MD Work Phone: Start: 06-02-2020 Ct angiography head w/contrast/noncontrast Veselin Yung Work Phone: Start: 06-02-2020 Blood count complete auto&auto difrntl wbc Veselin Yung Work Phone: Start: 06-02-2020 Comprehensive metabo lic panel Veselin Yung Work Phone: Start: 06-02-2020 End: 06-02-2020 Gluc bld gluc mntr dev cleared fda spec home use Doug Arteaga Work Phone: Start: 01-19-2020 Ct head/brain w/o co ntrast material Hardeep Merino Work Phone: Start: 01-19-2020 Basic metabolic pane l calcium total Hardeep Merino Work Phone: Start: 01-19-2020 Blood count complete auto&auto difrntl wbc Hardeep Merino Work Phone: Start: 01-19-2020 Ecg routine ecg w/le ast 12 lds w/i&r Hardeep Merino Work Phone: Start: 01-14-2020 Radiologic exam ches t single view Veselin Yung Work Phone: Start: 01-14-2020 Assay of magnesium Vese colt Yung Work Phone: Start: 01-14-2020 End: 01-14-2020 Assay of troponin quantitative Veselin Yung Work Phone: Start: 01-14-2020 Blood count complete auto&auto difrntl wbc Veselin Yung Work Phone: Start: 01-14-2020 Comprehensive metabo lic panel Veselin Yung Work Phone: Start: 01-14-2020 Fibrin dgradj produc ts d-dimer quantitative Veselin Yung Work Phone: Start: 01-14-2020 Natriuretic peptide Ves ritesh Yung Work Phone: Start: 01-14-2020 Ecg routine ecg w/le ast 12 lds w/i&r Veselin Yung Work Phone: Start: 12-03-2019 Lipid panel Demetrius Alex Justyn ibarramikhail Work Phone: Start: 12-03-2019 PATIENT FASTING? Demetrius Bestaa Work Phone: Start: 11-19-2019 Assay of troponin quantitative Devin Sania Work Phone: Start: 11-19-2019 Radiologic exam ches t single view Devin Sania Work Phone: Start: 11-19-2019 Ecg routine ecg w/le ast 12 lds w/i&r Devin Sania Work Phone: Start: 11-19-2019 Assay of troponin quantitative Devin Sania Work Phone: Start: 11-19-2019 Blood count complete auto&auto difrntl wbc Devin Sania Work Phone: Start: 11-19-2019 Fibrin dgradj produc ts d-dimer quantitative Devin Sania Work Phone: Start: 11-19-2019 Natriuretic peptide Pra edelmira Sania Work Phone: Start: 11-19-2019 Prothrombin time Prasha nt Sania Work Phone: Start: 11-19-2019 Thromboplastin time partial plasma/whole blood Devin Lui Work Phone: Start: 11-19-2019 INITIATE OXYGEN THER APY PROTOCOL Devin Abreushney Work Phone: Start: 05-02-2019 STRESS TEST REPORT Gerardo Martinez Work Phone: Start: 05-01-2019 Myocardial spect mul tiple studies Demetrius Jimenez Work Phone: Start: 04-04-2019 Assay of troponin quantitative Siomara Mejia Work Phone: Start: 04-04-2019 Assay of troponin quantitative Siomara Mejia Work Phone: Start: 04-04-2019 BASIC METABOLIC PANE L W/ REFLEX TO MG FOR LOW K Siomara Mejia Work Phone: Start: 04-04-2019 Blood count complete auto&auto difrntl wbc Siomara Mejia Work Phone: Start: 04-04-2019 Natriuretic peptide Chr issae Kamara Roberto Work Phone: Start: 04-04-2019 Ecg routine ecg w/le ast 12 lds w/i&r Siomara Mejia Work Phone: Start: 02-27-2010 Repair of umbilical hernia Juan A SCHAEFER Start: 05-30-2008 lump removal Juan A ALMANZAR Start: 05-30-2004 Closed fracture of f oot (disorder) Juan A SCHAEFER Start: 05-30-2004 Colonoscopy Juan A RHOADES YOHAN 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) Juan A SCHAEFER Comment on above: 2004, 2006 Plan of Treatment Date Care Activity Detail Author Start: 11-16-2024 Annual Wellness Visi t (Medicare) Annual Wellness Visit (Medicare) [facility] Start: 11-15-2024 Depression Screen Depression Screen [facility] Start: 11-01-2024 Screening for malign ant neoplasm of lung [facility] Start: 06-25-2024 Depression Screen Depression Screen [facility] Start: 02-12-2024 DTaP/Tdap/Td vaccine (2 - Td or Tdap) DTaP/Tdap/Td vaccine (2 - Td or Tdap) [facility] Start: 02-12-2024 DTaP/Tdap/Td vaccine (2 - Td) DTaP/Tdap/Td vaccine (2 - Td) [place] Start: 02-12-2024 Tetanus vaccination Tetanus: Every 1 0yrs [facility] Start: 01-29-2024 COVID-19 Vaccine ( season) COVID-19 Vaccine () [facility] Start: 12-29-2023 Influenza vaccination Flu vaccine (# 1) [facility] Start: 11-16-2023 End: 11-16-2023 Patient encounter procedure 11/16/2023 10:20 AM EDT Office Visit [facility] [address] [place] [id number] Doug Arteaga MD [address] [place] [id number] HCC - 6 months (around 11/01/2023) for HTN, Hyperlipidemia, gerd. [facility] Comment on above: HCC - 6 months (arou nd 11/01/2023) for HTN, Hyperlipidemia, gerd. Start: 11-01-2023 End: 11-01-2023 Patient encounter procedure 11/01/2023 10:20 AM EDT Office Visit [facility] [address] [place] [address] Doug Arteaga MD [address] [place] [id number] HCC - 6 months (around 11/01/2023) for HTN, Hyperlipidemia, gerd. [facility] Comment on above: HCC - 6 months (arou nd 11/01/2023) for HTN, Hyperlipidemia, gerd. Start: 10-29-2023 Annual Wellness Visi t (Medicare) Annual Wellness Visit (Medicare) [facility] Start: 10-29-2023 Screening for malign ant neoplasm of colon [facility] Start: 10-12-2023 Lipid panel Lipids [facility] Start: 01-28-2023 COVID-19 Vaccine ( season) COVID-19 Vaccine ( season) [facility] Start: 02-16-2022 Lipid panel Lipid screen [facility] Work Phone: Start: 01-28-2022 Influenza vaccination Sequenti al Influenza Vaccine (#1) [facility] Start: 09-04-2021 Annual Wellness Visi t (AWV) Annual Wellness Visit (AWV) [facility] [employer] Phone: Start: 09-03-2021 End: 09-03-2021 Patient encounter procedure 09/03/2021 Office Visit Family Medicine Doug Arteaga MD [address] [place] [address] [facility] Start: 03-05-2021 End: 03-05-2021 Patient encounter procedure 03/05/2021 Office Visit Family Doug Marie MD [address] [place] [address] [facility] Start: 01-28-2021 Influenza vaccination Flu vaccine (# 1) [facility] [employer] Phone: Start: 12-02-2020 Lipid panel Lipid screen [facility] [place] [place] Start: 08-25-2020 End: 08-25-2020 Office Visit [facility] Start: 04-28-2020 End: 04-28-2020 Office Visit 04/28/2020 Office Visit Cardiology Demetrius Jimenez MD [address] [place] [address] [facility] Manager [employer] Start: 04-19-2020 Lipid panel Lipid screen [place], [place] Start: 04-19-2020 Lipid screen Lipid screen [facility] Work Phone: Start: 04-16-2020 End: 04-16-2020 Office Visit 04/16/2020 Office Visit Family Medicine Doug Arteaga MD [address] [place], [place] [phone] [facility] Start: 01-29-2020 Influenza vaccination Flu vaccine (# 1) [place] Start: 01-28-2020 End: 01-28-2020 Office Visit 01/28/2020 Office Visit Cardiology Demetrius Jimenez MD [address] [place] [address] [facility] [employer] Start: 12-25-2019 End: 12-25-2019 Office Visit 12/25/2019 Office Visit Cardiology Demetrius Jimenez MD [address] [place], [place] [phone] [facility] Manager [employer] Start: 06-08-2019 Pneumococcal 65+ yea rs Vaccine (2 of 2 - PPSV23) Pneumococcal 65+ years Vaccine (2 of 2 - PPSV23) [place] Start: 06-05-2019 End: 06-05-2019 Office Visit 06/05/2019 Office Visit Family Medicine Doug Arteaga MD [address] [place], [place] [phone] [facility] Start: 2019 Lipid screen Lipid screen [place], [place] Start: 01-28-2019 Influenza vaccination Flu vaccine (# 1) [place] Start: 10-25-2018 Annual Wellness Visi t (AWV) Annual Wellness Visit (AWV) [place] Start: 2018 Abdominal aortic ane urysm screening AAA screen [facility] Start: 2018 Fall risk assessment Falls Risk Asse ssment [facility] Start: 04-09-2017 Colon Cancer Screen FIT/FOBT Colon Cancer Screen FIT/FOBT [place] Start: 04-09-2017 Screening for malign ant neoplasm of colon Colon Cancer Screen FIT/FOBT [place] Start: 2013 Respiratory Syncytia l Virus (RSV) or age 60 yrs+ (1 - 1-dose 60+ series) Respiratory Syncytial Virus (RSV) or age 60 yrs+ (1 - 1-dose 60+ series) [facility] Start: 04-22-2009 Pneumococcal Vaccine : Age 65+ (2 - PCV) Pneumococcal Vaccine: Age 65+ (2 - PCV) [facility] Start: [address] lung screening Low dose CT lung screening [place], [place] Start: 2008 Screening for malign ant neoplasm of lung Low dose CT lung screening [place] Start: 2003 Administration of he rpes zoster vaccine Zoster Vaccines (1 of 2) [facility] Start: 2003 Screening for malign ant neoplasm of lung [facility] Start: 2003 Shingles Vaccine (1 of 2) Tabor gles Vaccine (1 of 2) [facility] Start: 1998 Screening for malign ant neoplasm of colon [facility] Start: 1993 Diabetes screen Diabetes screen [facility] [employer] Phone: Start: 1971 Hepatitis C screening O [facility] Start: 1965 Depression screening using PHQ-9 (Patient Health Questionnaire 9) score Depression Screening (PHQ-2/9) [facility] Start: 1956 History and physical examination, annual for health maintenance Wellness Visit [facility] Start: 1953 COVID-19 Vaccine (#1) COVID-19 Vacci ne (#1) [facility] Start: 1953 Hepatitis C screen Hepatitis C roberte n [place], [place] Start: 1953 Hepatitis C screening Hepatitis C maxim joselivan [place], [place] Start: 1953 Prostate specific an tigen measurement PSA Level [facility] Start: 1953 Screening for malign ant neoplasm of colon [facility] End: 05-02-2019 Bacteria identified Cx Nom (U) Urine Culture Microbiology Routine Burning with urination 1 Occurrences starting 05/02/2019 until 05/02/2019 [facility] [place] Comment on above: 1 Occurrences starti ng 05/02/2019 until 05/02/2019 Bacteria identified Cx Nom (U) Urine Culture Microbiology Routine Burning with urination 05/02/2019 3:00 PM EST [facility] [place] End: 10-17-2023 Baseline Diagnostic Sleep Study Baseline Diagnostic Sleep Study Sleep Center Routine Excessive daytime sleepiness Other sleep apnea 1 Occurrences starting 10/17/2023 until 10/17/2023 [facility] [employer] Comment on above: 1 Occurrences starti ng 10/17/2023 until 10/17/2023 End: 12-03-2019 Cardiac event monitor Cardiac event monitor Cardiac Services Routine Palpitations 1 Occurrences starting 12/03/2019 until 12/03/2019 [facility] [employer] [place] Comment on above: 1 Occurrences starti ng 12/03/2019 until 12/03/2019 End: 06-07-2019 Cardiac event monitor Cardiac event monitor Cardiac Services Routine Palpitations 1 Occurrences starting 06/07/2019 until 06/07/2019 [employer] Phone: Comment on above: 1 Occurrences starti ng 06/07/2019 until 06/07/2019 End: 03-06-2020 Dermatology Pathology Dermatology Pathology Lab Routine Once for 1 Occurrences starting 03/06/2020 until 03/06/2020 [facility] [place] Comment on above: Once for 1 Occurrenc es starting 03/06/2020 until 03/06/2020 EKG 12 Lead [facility] [place] End: 04-04-2019 Holter monitor 48 hour Holter monitor 48 hour Cardiac Services Routine One Time for 1 Occurrences starting 04/04/2019 until 04/04/2019 [facility] [place] [place] Comment on above: One Time for 1 Occur rences starting 04/04/2019 until 04/04/2019 End: 04-04-2020 Holter Monitor 48 Hour Holter Monitor 48 Hour Cardiac Services Routine Palpitations 1 Occurrences starting 04/04/2019 until 04/04/2020 [facility] [employer] [place] Comment on above: 1 Occurrences starti ng 04/04/2019 until 04/04/2020 Initiate Oxygen Ther apy Protocol Initiate Oxygen Therapy Protocol Respiratory Care Routine Daily until discontinued starting 11/19/2019, 2 completed [place], [place] Comment on above: Daily until disconti nued starting 11/19/2019, 2 completed End: 07-30-2019 PSA, free PSA, free Lab Routine Once for 1 Occurrences starting 07/30/2019 until 07/30/2019 [place] Comment on above: Once for 1 Occurrenc es starting 07/30/2019 until 07/30/2019 PSA, free PSA, free Lab Ro utine 07/30/2019 1:01 PM EST [place], [place] End: 04-09-2020 Surgical Pathology Surgical Pathology Lab Routine Skin lesion of left arm Squamous cell cancer of skin of forearm, left 1 Occurrences starting 04/09/2020 until 04/09/2020 [place] Comment on above: 1 Occurrences starti ng 04/09/2020 until 04/09/2020 End: 11-19-2019 THYROID PROF W/ TSH THYROID PROF W/ TSH Lab Routine One Time for 1 Occurrences starting 11/19/2019 until 11/19/2019 [place] Comment on above: One Time for 1 Occur rences starting 11/19/2019 until 11/19/2019 End: 11-19-2019 Urinalysis, reflex to microscopic Urinalysis, reflex to microscopic Lab STAT One Time for 1 Occurrences starting 11/19/2019 until 11/19/2019 [place] Comment on above: One Time for 1 Occur rences starting 11/19/2019 until 11/19/2019 End: 04-04-2019 XR CHEST PORTABLE XR CHEST PORTABLE Imaging STAT Once for 1 Occurrences starting 04/04/2019 until 04/04/2019 [place] Comment on above: Once for 1 Occurrenc es starting 04/04/2019 until 04/04/2019 XR CHEST PORTABLE XR CHEST ALFREDO BLE Imaging STAT 04/04/2019 4:38 PM [place] Immunizations Immunization Date Immunization Notes Care Provider Caio sánchez 05-02-2023 Influenza, FLUAD, (a ge 65 y+), Adjuvanted, 0.5mL Mwhz Schedule [facility] 04-27-2022 Influenza, FLUAD, (a ge 65 y+), Adjuvanted, 0.5mL Mwhz Schedule [facility] 04-15-2021 COVID-19, PFIZER PUR PLE top, DILUTE for use, (age 12 y+), 30mcg/0.3mL Mwhz Schedule [facility] 08-19-2020 COVID-19, Pfizer, PF , 30mcg/0.3mL Doug Arteaga MD Work Phone: [facility] 07-29-2020 COVID-19, Pfizer, PF , 30mcg/0.3mL Doug Arteaga MD Work Phone: [facility] 04-09-2020 influenza, injectabl e, quadrivalent, preservative free [facility] 02-25-2020 pneumococcal polysaccharide vaccine, 23 valent [place], [place] 04-29-2019 influenza virus vacc ine, live, attenuated, for intranasal use Juan A SILVANO [facility] 04-29-2019 influenza virus vacc ine, unspecified formulation Doug Arteaga MD Work Phone: [facility] 04-16-2019 influenza, injectabl e, quadrivalent, preservative free [facility], [place] 06-08-2018 pneumococcal conjuga te vaccine, 13 valent [facility] 04-05-2018 influenza, injectabl e, quadrivalent, preservative free Mwhz Schedule [facility] 04-09-2017 Influenza Vaccine, unspecified formulation [facility] , [place] 04-09-2017 influenza, injectabl e, quadrivalent, preservative free Mwhz Schedule [facility] 03-19-2016 influenza, injectabl e, quadrivalent, preservative free [facility], [place] 03-19-2014 influenza virus vacc ine, unspecified formulation [facility] 02-11-2014 tetanus toxoid, redu brenda diphtheria toxoid, and acellular pertussis vaccine, [facility] 04-22-2008 pneumococcal polysaccharide vaccine, 23 valent [facility], [place] Payers Date Payer Category Payer Medicare MEDICARE MEDICAR E PART A AND B xxxxxxxxxxx 2017-Present [phone] [address] [address] [place] [address] xxxxxxxxxxx [id number] 2017 Unknown [employer]ICAL GABRIELA HARRIS O NN xxxxxxxxxxxx 2017-Present [phone] [address] [place] [address] xxxxxxxxxxxx [id number] JANINE YBARRA HMO [id number] 2015-Present [phone] [address] [place] [address] [id number] 1959 Medicare [id number] 1959 Unknown [id number] [id number] .[id number] 1953 Unknown [id number] 2.16.840.1.369225.3.579.2.593 1953 Unknown [id number] 2.16.840.1.448447.3.579.2.593 1953 Unknown [id number] 2.16.840.1.476400.3.579.2.593 1953 Unknown [id number] 2.16.840.1.695649.3.579.2.727 1953 Unknown [id number] 2.16.840.1.015776.3.579.2.727 1953 Unknown [id number] 2.16.840.1.335583.3.579.2.727 1953 Unknown [id number] 2.16.840.1.506516.3.579.2.727 1953 Unknown [id number] 2.16.840.1.365392.3.579.2.727 1953 Unknown [id number] 2.16.840.1.681608.3.579.2.125 9 1953 Unknown [id number] 2.16.840.1.963843.3.579.2.125 9 1953 Unknown [id number] 2.16.840.1.830631.3.579.2.174 1953 Unknown [id number] 2.16.840.1.103886.3.579.2.174 1953 Unknown [id number] 2.16.840.1.984561.3.579.2.174 1953 Unknown [id number] 2.16.840.1.272001.3.579.2.174 1953 Unknown [id number] 2.16.840.1.664909.3.579.2.174 1953 Unknown [id number] 2.16.840.1.923252.3.579.2.174 1953 Unknown [id number] 2.16.840.1.159085.3.579.2.174 1953 Unknown [id number] 2.16.840.1.210365.3.579.2.174 1953 Unknown [id number] 2.16.840.1.592509.3.579.2.174 1953 Unknown [id number] [id number]4 Social History Date Type Detail Facility Start: 04-04-2019 End: 11-16-2023 Tobacco smoking status NHIS Current every day smoker [facility] History of tobacco use Cigarette Smoker [facility] Start: 04-04-2019 End: 12-14-2022 Cigarettes smoked current (pack per day) - Reported [facility] Start: 04-04-2019 End: 12-14-2022 Alcohol intake No [facility] [employer] [place] Start: 1955 Sex Assigned At Not on file [place] Start: 04-16-2019 End: 03-21-2024 Alcohol intake Current non-drinker of alcohol (finding) [place], [place] Exposure to SARS-CoV -2 (event) Unable to assess [facility] [place] Start: 01-14-2020 End: 11-16-2023 Tobacco use and exposure Never used [facility] [place] Exposure to SARS-CoV -2 (event) Not sure [facility] [place] Start: 02-25-2020 End: 03-05-2021 History SDOH [facility] [place] Start: 02-25-2020 End: 03-05-2021 History SDOH Food Worry 1 [facility] Start: 05-08-2019 Tobacco smoking status Light t obacco smoker (finding) [facility] How often to you hav e a drink containing alcohol? Never [facility] How many standard drinks containing alcohol do you have on a typical day? Patient does not drink [facility] (I/We) worried wheth er (my/our) food would run out before (I/we) got money to buy more. Never true [facility] At any time in the p ast 12 months, were you homeless or living in fdc [including now]? No [facility] History of tobacco use Passive smoker [employer] How hard is it for y ou to pay for the very basics like food, housing, medical care, and heating Not very hard [employer] Functional Status Date Assessment Result Facility 04-21-2023 Functional Status N/A [facility] 11-27-2022 Functional Status N/A [facility] 05-15-2022 Functional Status N/A [facility] 01-02-2022 Functional Status N/A [facility] Clinical Notes 04-18-2017 to 10-17-2023 Lennie Nolan - 10/17/2023 8:15 PM EDT Note Date & Type Note Facility 10-17-2023 History of Presen t illness Narrative Patient arrived for sleep testing. Testing explained, all questions answered, pt voices understanding. documented in this encounter [facility] 04-21-2023 Hospital Discharg e instructions Patient Education 04/21/2023 13:48:58 Virgen Cyst Virgen Cyst A Virgen cyst, also called a popliteal cyst, is a growth that forms at the back of the knee. The cyst forms when the fluid-filled sac (bursa) that cushions the knee joint becomes enlarged. What are the causes? In most cases, a Virgen cyst results from another knee problem that causes swelling inside the knee. This makes the fluid inside the knee joint (synovial fluid) flow into the bursa behind the knee, causing the bursa to enlarge. What increases the risk? You may be more likely to develop a Virgen cyst if you already have a knee problem, such as: A tear in cartilage that cushions the knee joint (meniscal tear). A tear in the tissues that connect the bones of the knee joint (ligament tear). Knee swelling from osteoarthritis, rheumatoid arthritis, or gout. What are the signs or symptoms? The main symptom of this condition is a lump behind the knee. This may be the only symptom of the condition. The lump may be painful, especially when the knee is straightened. If the lump is painful, the pain may come and go. The knee may also be stiff. Symptoms may quickly get more severe if the cyst breaks open (ruptures). If the cyst ruptures, you may feel the following in your knee and calf: Sudden or worsening pain. Swelling. Bruising. Redness in the calf. A Virgen cyst does not always cause symptoms. How is this diagnosed? This condition may be diagnosed based on your symptoms and medical history. Your health care provider will also do a physical exam. This may include: Feeling the cyst to check whether it is tender. Checking your knee for signs of another knee condition that causes swelling. You may have imaging tests, such as: X-rays. MRI. Ultrasound. How is this treated? A Virgen cyst that is not painful may go away without treatment. If the cyst gets large or painful, it will likely get better if the underlying knee problem is treated. If needed, treatment for a Virgen cyst may include: Resting. Keeping weight off of the knee. This means not leaning on the knee to support your body weight. Taking NSAIDs, such as ibuprofen, to reduce pain and swelling. Having a procedure to drain the fluid from the cyst with a needle (aspiration). You may also get an injection of a medicine that reduces swelling (steroid). Having surgery. This may be needed if other treatments do not work. This usually involves correcting knee damage and removing the cyst. Follow these instructions at home: Activity Rest as told by your health care provider. Avoid activities that make pain or swelling worse. Return to your normal activities as told by your health care provider. Ask your health care provider what activities are safe for you. Do not use the injured limb to support your body weight until your health care provider says that you can. Use crutches as told by your health care provider. General instructions Take idra-awr-cyfstap and prescription medicines only as told by your health care provider. Keep all follow-up visits as told by your health care provider. This is important. Contact a health care provider if: You have knee pain, stiffness, or swelling that does not get better. Get help right away if: You have sudden or worsening pain and swelling in your calf area. Summary A Virgen cyst, also called a popliteal cyst, is a growth that forms at the back of the knee. In most cases, a Virgen cyst results from another knee problem that causes swelling inside the knee. A Virgen cyst that is not painful may go away without treatment. If needed, treatment for a Virgen cyst may include resting, keeping weight off of the knee, medicines, or draining fluid from the cyst. Surgery may be needed if other treatments are not effective. This information is not intended to replace advice given to you by your health care provider. Make sure you discuss any questions you have with your health care provider. Document Revised: 09/28/2019 Document Reviewed: 09/28/2019 [employer] Patient Education 2022 [employer]. 04/21/2023 13:48:58 Acute Pain, Adult Acute Pain, Adult Acute pain is a type of sudden pain that may last for just a few days or for as long as six months. It is often related to an illness, injury, or medical procedure. Acute pain may be mild, moderate, or severe. Pain can make it hard for you to do your normal, daily activities. It can cause anxiety and lead to other problems if it is left untreated. Treatment depends on the cause and severity of your pain. Acute pain usually goes away once your injury has healed or you are no longer ill. Follow these instructions at home: Medicines Take svwn-zmo-zxlemus and prescription medicines only as told by your health care provider. Take the lowest dose of medicine for the shortest amount of time needed to relieve the pain. If you are taking prescription pain medicine: ?Do not stop taking the medicine suddenly. Talk to your health care provider about how and when to discontinue prescription medicine. ?Do not take more pills than told by your health care provider even if your pain is severe. ?Do not take other flyc-kvr-xptghjm pain medicines in addition to prescription pain medicine unless told by your health care provider. ?Ask your health care provider if the medicine requires you to avoid driving or using heavy machinery. ?Ask your health care provider if the medicine can cause constipation. You may need to take these actions to prevent or treat constipation: ?Drink enough fluid to keep your urine pale yellow. ?Eat foods that are high in fiber, such as beans, whole grains, and fresh fruits and vegetables. ?Take qhzp-qva-ysgwuyk or prescription medicines. ?Limit foods that are high in fat and processed sugars, such as fried or sweet foods. Managing pain, stiffness, and swelling If directed, put ice on the affected area. To do this: Put ice in a plastic bag. Place a towel between your skin and the bag. Leave the ice on for 20 minutes, 2 3 times a day. If directed, apply heat to the affected area as often as told by your health care provider. Use the heat source that your health care provider recommends, such as a moist heat pack or a heating pad. Place a towel between your skin and the heat source. Leave the heat on for 20 30 minutes. Remove the heat if your skin turns bright red. This is especially important if you are unable to feel pain, heat, or cold. You may have a greater risk of getting burned. Activity Rest as told by your health care provider. Return to your normal activities as told by your health care provider. Ask your health care provider what activities are safe for you. General instructions Check your pain level as told by your health care provider. Ask your health care provider if other strategies such as distraction, relaxation, or physical therapies can help your pain. Keep all follow-up visits as told by your health care provider. This is important. Contact a health care provider if: Your pain is not controlled by medicine. Your pain does not improve or gets worse. You have side effects from pain medicines, such as vomiting or confusion. Get help right away if you: Have severe pain. Have trouble breathing. Lose consciousness. Have chest pain or pressure that lasts for more than a few minutes, or if you have other symptoms along with chest pain, including if you: ?Have pain or discomfort in one or both arms, your back, neck, jaw, or stomach. ?Have shortness of breath. ?Break out in a cold sweat. ?Feel nauseous. ?Become light-headed. These symptoms may represent a serious problem that is an emergency. Do not wait to see if the symptoms will go away. Get medical help right away. Call your local emergency services (911 in the [place] Do not drive yourself to the hospital. Summary Acute pain may be mild, moderate, or severe. It usually goes away once your injury has healed or you are no longer ill. Take zmqy-vbd-onumpgr and prescription medicines only as told by your health care provider. Ask your health care provider if the medicine prescribed to you can cause constipation. Contact a health care provider if your pain is not controlled by medicine. This information is not intended to replace advice given to you by your health care provider. Make sure you discuss any questions you have with your health care provider. Document Revised: 10/01/2019 Document Reviewed: 10/01/2019 Elsevier Patient Education 2022 [employer]. Follow Up Care 04/21/2023 13:14:23 With:DOUG ARTEAGA Address: [place] [address]- Business (1) When:04/24/2023 13:30:48 [facility] 11-27-2022 Hospital Discharg e instructions Patient Education 11/27/2022 19:31:51 Urinary Tract Infection, Adult, Yeyc-rf-Dwye Urinary Tract Infection, Adult A urinary tract infection (UTI) is an infection of any part of the urinary tract. The urinary tract includes: The kidneys. The ureters. The bladder. The urethra. These organs make, store, and get rid of pee (urine) in the body. What are the causes? This infection is caused by germs (bacteria) in your genital area. These germs grow and cause swelling (inflammation) of your urinary tract. What increases the risk? The following factors may make you more likely to develop this condition: Using a small, thin tube (catheter) to drain pee. Not being able to control when you pee or poop (incontinence). Being female. If you are female, these things can increase the risk: ?Using these methods to prevent : ?A medicine that kills sperm (spermicide). ?A device that blocks sperm (diaphragm). ?Having low levels of a female hormone (estrogen). ?Being . You are more likely to develop this condition if: You have genes that add to your risk. You are sexually active. You take antibiotic medicines. You have trouble peeing because of: ?A prostate that is bigger than normal, if you are male. ?A blockage in the part of your body that drains pee from the bladder. ?A kidney stone. ?A nerve condition that affects your bladder. ?Not getting enough to drink. ?Not peeing often enough. You have other conditions, such as: ?Diabetes. ?A weak disease-fighting system (immune system). ?Sickle cell disease. ?Gout. ?Injury of the spine. What are the signs or symptoms? Symptoms of this condition include: Needing to pee right away. Peeing small amounts often. Pain or burning when peeing. Blood in the pee. Pee that smells bad or not like normal. Trouble peeing. Pee that is cloudy. Fluid coming from the vagina, if you are female. Pain in the belly or lower back. Other symptoms include: Vomiting. Not feeling hungry. Feeling mixed up (confused). This may be the first symptom in older adults. Being tired and grouchy (irritable). A fever. Watery poop (diarrhea). How is this treated? Taking antibiotic medicine. Taking other medicines. Drinking enough water. In some cases, you may need to see a specialist. Follow these instructions at home: Medicines Take gwhf-xip-swijvey and prescription medicines only as told by your doctor. If you were prescribed an antibiotic medicine, take it as told by your doctor. Do not stop taking it even if you start to feel better. General instructions Make sure you: ?Pee until your bladder is empty. ?Do not hold pee for a long time. ?Empty your bladder after sex. ?Wipe from front to back after peeing or pooping if you are a female. Use each tissue one time when you wipe. Drink enough fluid to keep your pee pale yellow. Keep all follow-up visits. Contact a doctor if: You do not get better after 1 2 days. Your symptoms go away and then come back. Get help right away if: You have very bad back pain. You have very bad pain in your lower belly. You have a fever. You have chills. You feeling like you will vomit or you vomit. Summary A urinary tract infection (UTI) is an infection of any part of the urinary tract. This condition is caused by germs in your genital area. There are many risk factors for a UTI. Treatment includes antibiotic medicines. Drink enough fluid to keep your pee pale yellow. This information is not intended to replace advice given to you by your health care provider. Make sure you discuss any questions you have with your health care provider. Document Revised: 12/26/2020 Document Reviewed: 12/26/2020 [employer] Patient Education 2022 [employer]. 11/27/2022 18:22:38 Supraventricular Tachycardia, Adult, Eysr-gz-Ktcr Supraventricular Tachycardia, Adult Supraventricular tachycardia (SVT) is a kind of abnormal heartbeat. It makes your heart beat very fast. This may last for a short time and then return to normal, or it may last longer. A normal resting heartbeat is 60 100 times a minute. This condition can make your heart beat more than 150 times a minute. Times of having a fast heartbeat (episodes) can be scary, but they are usually not dangerous. In some cases, they may lead to heart failure if they: Happen many times a day. Last longer than a few seconds. What are the causes? This condition happens when electrical signals are sent out from areas of the heart that do not normally send signals for the heartbeat. What increases the risk? You are more likely to develop this condition if you are: Middle aged or younger. Female. The following factors may also make you more likely to develop this condition: Stress. Feeling worried or nervous (anxiety). Tiredness. Smoking. Stimulant drugs, such as cocaine and methamphetamine. Alcohol. Caffeine. . Having certain medical conditions. What are the signs or symptoms? A pounding heart. A feeling that your heart is skipping beats (palpitations). Weakness. Trouble getting enough air. Pain or tightness in your chest. Dizziness or feeling like you are going to pass out (faint). Feeling worried or nervous. Sweating. Feeling like you may vomit (nausea). Passing out. Tiredness. Sometimes, there are no symptoms. How is this treated? Treatment may include: Vagal nerve stimulation. Ways to do this include: ?Holding your breath and pushing, as though you are pooping (having a bowel movement). ?Massaging an area on one side of your neck. Do not try this yourself. Only a doctor should do this. If done the wrong way, it can lead to a stroke. ?Bending forward with your head between your legs. ?Coughing while bending forward with your head between your legs. ?Putting an ice-cold, wet towel on your face. Medicines that prevent attacks. Medicine to stop an attack given through an IV tube at the hospital. A small electric shock (cardioversion) that stops an attack. A procedure to get rid of cells in the area that is causing the fast heartbeats (radiofrequency ablation). If you do not have symptoms, you may not need treatment. Follow these instructions at home: Stress Avoid things that make you feel stressed. To deal with stress, try: ?Doing yoga or meditation. ?Being out in nature. ?Listening to relaxing music. ?Doing deep breathing. ?Taking steps to be healthy, such as getting lots of sleep, exercising, and eating a balanced diet. ?Talking with a mental health doctor. Lifestyle Try to get at least 7 hours of sleep each night. Do not smoke or use any products that contain nicotine or tobacco. If you need help quitting, ask your doctor. Do not drink alcohol if it gives you a fast heartbeat. If alcohol does not seem to give you a fast heartbeat, limit your alcohol use. If you drink alcohol: ?Limit how much you have to: ?0 1 drink a day for women who are not . ?0 2 drinks a day for men. ?Know how much alcohol is in your drink. In the [place] one drink equals one 12 oz bottle of beer (355 mL), one 5 oz glass of wine (148 mL), or one 1 oz glass of hard liquor (44 mL). Be aware of how caffeine affects you. ?If caffeine gives you a fast heartbeat, do not eat, drink, or use anything with caffeine in it. ?If caffeine does not seem to give you a fast heartbeat, limit how much caffeine you eat, drink, or use. Do not use stimulant drugs. If you need help quitting, ask your doctor. General instructions Stay at a healthy weight. Exercise regularly. Ask your doctor about good activities for you. Try one or a mixture of these: ?150 minutes a week of gentle exercise, like walking or yoga. ?75 minutes a week of exercise that is very active, like running or swimming. Do vagus nerve treatments to slow down your heartbeat as told by your doctor. Take wpxj-szc-zoyypap and prescription medicines only as told by your doctor. Keep all follow-up visits. Contact a doctor if: You have a fast heartbeat more often. Times of having a fast heartbeat last longer than before. Home treatments to slow down your heartbeat do not help. You have new symptoms. Get help right away if: You have chest pain. Your symptoms get worse. You have trouble breathing. Your heart beats very fast for more than 20 minutes. You pass out. These symptoms may be an emergency. Get medical help right away. Call your local emergency services (911 in the [place] Do not wait to see if the symptoms will go away. Do not drive yourself to the hospital. Summary SVT is a type of abnormal heartbeat. This condition can make your heart beat more than 150 times a minute. If you do not have symptoms, you may not need treatment. This information is not intended to replace advice given to you by your health care provider. Make sure you discuss any questions you have with your health care provider. Document Revised: 12/27/2020 Document Reviewed: 12/27/2020 Elsevier Patient Education 2022 [employer]. You are currently taking four 25 mg doses of metoprolol daily. Starting Tuesday begin taking 2 tablets at dose #1 in the morning and 2 tablets at dose #3 in the late afternoon early evening. The other doses stay the same. Contact your rad technologist Tuesday. Take copies of your monitor strip and your EKG with you. New symptoms, dizziness, shortness of breath, chest pain, or sustained rapid heartbeat should bring you back here. Follow Up Care 11/27/2022 16:18:04 With:Contact your rad technologist Tuesday. Address:Unknown When: Unknown With:DOUG ARTEAGA Address: [address] [place] [address]- Business (1) When:Within 3 Day(s) [facility] 11-27-2022 Evaluation + Plan note Extrac shameka from: Title:ED Note Author:Grant Vazquez MD Date: 3 1. SVT (supraventricular tac hycardia) (I47.1: Supraventricular tachycardia) Acute UTI (urinary tract infection) (N39.0: Urinary tract infection, site not specified) Orders: cephalexin, 500 mg = 1 cap(s), Oral, BID, X 7 day(s), # 14 cap(s), Refills(s) 0, Pharmacy: [facility] #[id number], 170, cm, 11/27/22 16:29:00 EDT, Height/Length Dosing, 92.4, kg, 11/27/22 16:29:00 EDT, Weight Dosing cephalexin, 500 mg = 1 cap(s), Cap, Oral, Once, Stop date 11/27/22 18:58:00 EDT, STAT, Start date 11/27/22 18:58:00 EDT, 11/27/22 18:58:00 EDT metoprolol, See Instructions, 2 tabs in the morning and evening and 1 tab in the afternoon, # 20 tab(s), Refills(s) 0, Pharmacy: [facility] #[id number], 170, cm, 11/27/22 16:29:00 EDT, Height/Length Dosing, 92.4, kg, 11/27/22 16:29:00 EDT, Weight Dosing Diagnostic Tests Pending * Urine Culture 11/27/22 [facility]12-18-2022 Hospital Discharge instructions Patient Education 05/15/2022 23:39:24 Palpitations, Fchk-oy-Ffdo Palpitations Palpitations are feelings that your heartbeat is not normal. Your heartbeat may feel like it is: Uneven. Faster than normal. Fluttering. Skipping a beat. This is usually not a serious problem. In some cases, you may need tests to rule out any serious problems. Follow these instructions at home: Pay attention to any changes in your condition. Take these actions to help manage your symptoms: Eating and drinking Avoid: ?Coffee, tea, soft drinks, and energy drinks. ?Chocolate. ?Alcohol. ?Diet pills. Lifestyle Try to lower your stress. These things can help you relax: ?Yoga. ?Deep breathing and meditation. ?Exercise. ?Using words and images to create positive thoughts (guided imagery). ?Using your mind to control things in your body (biofeedback). Do not use drugs. Get plenty of rest and sleep. Keep a regular bed time. General instructions Take dyue-ayv-boucfjz and prescription medicines only as told by your doctor. Do not use any products that contain nicotine or tobacco, such as cigarettes and e-cigarettes. If you need help quitting, ask your doctor. Keep all follow-up visits as told by your doctor. This is important. You may need more tests if palpitations do not go away or get worse. Contact a doctor if: Your symptoms last more than 24 hours. Your symptoms occur more often. Get help right away if you: Have chest pain. Feel short of breath. Have a very bad headache. Feel dizzy. Pass out (faint). Summary Palpitations are feelings that your heartbeat is uneven or faster than normal. It may feel like your heart is fluttering or skipping a beat. Avoid food and drinks that may cause palpitations. These include caffeine, chocolate, and alcohol. Try to lower your stress. Do not smoke or use drugs. Get help right away if you faint or have chest pain, shortness of breath, a severe headache, or dizziness. This information is not intended to replace advice given to you by your health care provider. Make sure you discuss any questions you have with your health care provider. Document Released: 02/22/2009 Document Revised: 06/28/2018 Document Reviewed: 06/28/2018 [employer] Patient Education 2020 [employer]. 05/15/2022 23:39:22 Nonspecific Chest Pain, Adult, Lols-ul-Yvpy Nonspecific Chest Pain Chest pain can be caused by many different conditions. Some causes of chest pain can be life-threatening. These will require treatment right away. Serious causes of chest pain include: Heart attack. A tear in the body's main blood vessel. Redness and swelling (inflammation) around your heart. Blood clot in your lungs. Other causes of chest pain may not be so serious. These include: Heartburn. Anxiety or stress. Damage to bones or muscles in your chest. Lung infections. Chest pain can feel like: Pain or discomfort in your chest. Crushing, pressure, aching, or squeezing pain. Burning or tingling. Dull or sharp pain that is worse when you move, cough, or take a deep breath. Pain or discomfort that is also felt in your back, neck, jaw, shoulder, or arm, or pain that spreads to any of these areas. It is hard to know whether your pain is caused by something that is serious or something that is not so serious. So it is important to see your doctor right away if you have chest pain. Follow these instructions at home: Medicines Take ntft-jxg-tothssf and prescription medicines only as told by your doctor. If you were prescribed an antibiotic medicine, take it as told by your doctor. Do not stop taking the antibiotic even if you start to feel better. Lifestyle Rest as told by your doctor. Do not use any products that contain nicotine or tobacco, such as cigarettes, e- cigarettes, and chewing tobacco. If you need help quitting, ask your doctor. Do not drink alcohol. Make lifestyle changes as told by your doctor. These may include: ?Getting regular exercise. Ask your doctor what activities are safe for you. ?Eating a heart-healthy diet. A diet and agronomy specialist (dietitian) can help you to learn healthy eating options. ?Staying at a healthy weight. ?Treating diabetes or high blood pressure, if needed. ?Lowering your stress. Activities such as yoga and relaxation techniques can help. General instructions Pay attention to any changes in your symptoms. Tell your doctor about them or any new symptoms. Avoid any activities that cause chest pain. Keep all follow-up visits as told by your doctor. This is important. You may need more testing if your chest pain does not go away. Contact a doctor if: Your chest pain does not go away. You feel depressed. You have a fever. Get help right away if: Your chest pain is worse. You have a cough that gets worse, or you cough up blood. You have very bad (severe) pain in your belly (abdomen). You pass out (faint). You have either of these for no clear reason: ?Sudden chest discomfort. ?Sudden discomfort in your arms, back, neck, or jaw. You have shortness of breath at any time. You suddenly start to sweat, or your skin gets clammy. You feel sick to your stomach (nauseous). You throw up (vomit). You suddenly feel lightheaded or dizzy. You feel very weak or tired. Your heart starts to beat fast, or it feels like it is skipping beats. These symptoms may be an emergency. Do not wait to see if the symptoms will go away. Get medical help right away. Call your local emergency services (911 in the [place] Do not drive yourself to the hospital. Summary Chest pain can be caused by many different conditions. The cause may be serious and need treatment right away. If you have chest pain, see your doctor right away. Follow your doctor's instructions for taking medicines and making lifestyle changes. Keep all follow-up visits as told by your doctor. This includes visits for any further testing if your chest pain does not go away. Be sure to know the signs that show that your condition has become worse. Get help right away if you have these symptoms. This information is not intended to replace advice given to you by your health care provider. Make sure you discuss any questions you have with your health care provider. Document Released: 11/01/2008 Document Revised: 11/16/2018 Document Reviewed: 11/16/2018 [employer] Patient Education 2020 [employer] Follow Up Care 05/15/2022 19:43:58 With:ARNOL FISCHER, EWELINA CALVO Address: [address] [place] [address] [place] [address]- When:05/17/2022 [facility]12-17-2022 Evaluation + Plan noteExtracted from: Title:ED Note Author:Briana Howe PA-C ate:05/15/22 1. Palpitations with regular cardiac rhythm (R00.2: Palpitations) 2. Chest pain (R07.9: Chest pain, unspecified) Orders: aspirin, 325 mg = 1 tab(s), Tab-EC, Oral, Once, Stop date 05/15/22 21:28:00 EST, STAT, Start date 05/15/22 21:28:00 EST, 05/15/22 21:28:00 EST metoprolol, 25 mg = 1 tab(s), Tab, Oral, Once, Stop date 05/15/22 23:31:00 EST, STAT, Start date 05/15/22 23:31:00 EST, 05/15/22 23:31:00 EST ECG 12 Lead Adult ED Cardiac Monitoring Pulse Oximetry Troponin 3 Hr. Troponin 6 Hr. XR Chest Single View [facility]08-07-2022 Evaluation + Plan noteExtracted from: Title:ED Note Author:Jose Daniel Silva DO Date :01/03/22 Palpitations (R00.2: Palpita tions) Orders: Automated Diff Basic Metabolic Panel CBC w/ Auto Diff ECG 12 Lead Adult ED Cardiac Monitoring eGFR Hepatic Function Panel Magnesium Level Oxygen Saturation Oxygen Therapy PT & PTT Saline Lock Insert Troponin 0 Hr. XR Chest Single View [facility]08-07-2022 Hospital Discharge instructions Patient Education 01/03/2022 01:25:02 Palpitations, Fgbl-ym-Ydoz Palpitations Palpitations are feelings that your heartbeat is not normal. Your heartbeat may feel like it is: Uneven. Faster than normal. Fluttering. Skipping a beat. This is usually not a serious problem. In some cases, you may need tests to rule out any serious problems. Follow these instructions at home: Pay attention to any changes in your condition. Take these actions to help manage your symptoms: Eating and drinking Avoid: ?Coffee, tea, soft drinks, and energy drinks. ?Chocolate. ?Alcohol. ?Diet pills. Lifestyle Try to lower your stress. These things can help you relax: ?Yoga. ?Deep breathing and meditation. ?Exercise. ?Using words and images to create positive thoughts (guided imagery). ?Using your mind to control things in your body (biofeedback). Do not use drugs. Get plenty of rest and sleep. Keep a regular bed time. General instructions Take perh-vrq-rgkywra and prescription medicines only as told by your doctor. Do not use any products that contain nicotine or tobacco, such as cigarettes and e-cigarettes. If you need help quitting, ask your doctor. Keep all follow-up visits as told by your doctor. This is important. You may need more tests if palpitations do not go away or get worse. Contact a doctor if: Your symptoms last more than 24 hours. Your symptoms occur more often. Get help right away if you: Have chest pain. Feel short of breath. Have a very bad headache. Feel dizzy. Pass out (faint). Summary Palpitations are feelings that your heartbeat is uneven or faster than normal. It may feel like your heart is fluttering or skipping a beat. Avoid food and drinks that may cause palpitations. These include caffeine, chocolate, and alcohol. Try to lower your stress. Do not smoke or use drugs. Get help right away if you faint or have chest pain, shortness of breath, a severe headache, or dizziness. This information is not intended to replace advice given to you by your health care provider. Make sure you discuss any questions you have with your health care provider. Document Released: 02/22/2009 Document Revised: 06/28/2018 Document Reviewed: 06/28/2018 [employer] Patient Education 2020 [employer]. Follow Up Care 01/02/2022 22:55:07 With:DOUG ARTEAGA Address: [address] [place] [address] [place] [address] Business (1) When:01/06/2022 Comments:Follow-up with your primary care doctor next 2 to 3 days for further evaluation and management. Please return the ED for any new or worsening symptoms. [facility]04-05-2022 Evaluation + Plan noteExtracted from: Title:Discharge Note Author:Kamille FISCHER, Partha Kraft ate:09/01/21 SVT Palpitations -Chronic -Cardiology following -Continue w/Lopressor -Awaiting Echo than possible d/c soon after -Monitor Dehydration -Chronic -States that he drinks 500 mL fluid per day. Sometimes he will have a can of diet Coke. Discussed with him the importance of staying hydrated. -Fluids are less than the maintenance however he seems to be responding and is drinking p.o. Continue w/po intake. Anxiety -Appears to be chronic, patient denies any suicidal ideation, homicidal ideation, suicidal plan or homicidal plan. Patient appears to have generalized anxiety disorder and not bipolar. Patient declined SSRI at this time. Did do some very mild CBT with him via breathing exercises. Follow-up with his PCP for possible SSRI. This may be contributing to above. Chronic Medical problems Hiatal hernia: Chronic, no n/v. Cont w/PPI. Congenital adrenal hyperplasia: Chronic, Cont w/Dexamethasone GAVIN: Chronic, CPAP qHS HLD: Chronic, continue w/statin Thrombocytopenia: Unknown chronicity, recent viral infection, iatrogenic causes as well, no stigmata of bleeding, refer to Heme out pt Of Historical Significance Hyponatremia: Resolved Diet: Regular DVT prophylaxis: SCDs Plan: If Echo ok, ok to go home and f/u w/PCP and [employer]. Plan was discussed with patient and family (if applicable) at bedside Orders: metoprolol, 25 mg = 1 tab(s), Oral, QID, # 120 tab(s), Refills(s) 0, Pharmacy: [id number] [facility], 170, cm, 08/30/21 1:31:00 EDT, Height/Length Dosing, 93, kg, 08/30/21 1:31:00 EDT, Weight Dosing Referral to Resource [facility] Stable Home Prescriptions Lopressor 25 mg oral tablet, 25 mg= 1 tab(s), Oral, QID Home amLODIPine 2.5 mg Tab aspirin 81 mg oral tablet, 1 tab(s), Oral, Daily, Not taking calcium (as citrate)-vitamin D 500 mg-200 intl units oral tablet, chewable, 500MG/400MG, Oral, Daily Cipro 500 mg Tab, Oral, q12hr dexamethasone 0.5 mg oral tablet, 0.5 mg= 1 tab(s), Oral, Daily Lipitor 10 mg oral tablet, 1 tab(s), Oral, Daily, Not taking One A Day Men 50 Plus, 1 TAB, Oral, Daily pravastatin 40 mg Tab, 40 mg= 1 tab(s), Oral, Bedtime Prevacid 30 mg Cap-EC, 1 cap(s), Oral, Daily With When Contact Information DOUG ARTEAGA 09/07/2021 09:20 AM EDT [address] [place] [address]- Business (1) Additional Instructions: Sagar Zamarripa [facility] [address] [place] [address]- Additional Instructions: Thrombocytopenia Extracted from: Title:Consult Note Author:Aristeo FISCHER, Mitch Carey te:08/31/21 1. Palpitations (R00.2: Palp itations) Patient has what appears to be known SVT, and is aware of his palpitations. It appears he may have had some dehydration as a result of his recent viral illness. He feels much better with IV fluid resuscitation. He is not orthostatic. Would recommend obtaining a 2D echo with Doppler to evaluate his LV function to determine if he has any deterioration of his LV as a result of his viral illness. He will continue his baby aspirin, Lopressor 25 mg 4 times daily for SVT prevention. Do not believe the patient requires a stress test at this time. Would recommend an outpatient 30-day event monitor to determine the total burden of his SVT arrhythmias. Thank you very much for the opportunity to participate in the cardiac care of your patient. If echocardiogram is normal he may be discharged home and follow-up with Dr. Lawson elizondo going forward. Consultation time took place between 730 and 8 AM. 2. Hyponatremia (E87.1: Hypo-osmolality and hyponatremia) 3. Hyperlipidemia (E78.5: Hyperlipidemia, unspecified) 4. Obstructive sleep apnea (G47.33: Obstructive sleep apnea (adult) (pediatric)) 5. Thrombocytopenia (D69.6: Thrombocytopenia, unspecified) 6. Obesity (E66.9: Obesity, unspecified) 7. Hiatal hernia (K44.9: Diaphragmatic hernia without obstruction or gangrene) 8. Congenital adrenal hyperplasia (E25.0: 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) Orders: Echo Transthoracic Complete Extracted from: Title:Admission H & P Author:Juan A SCHAEFER DO Date:08/30/21 1. Palpitations (R00.2: Palp itations) Patient was somewhat vague with his symptoms, he did express concern that his heart rate would rise to 100 with a walk to the bathroom. He states his heart rate usually does not get above 80. He states he was evaluated for something very similar in [place] seen by Dr. Elizabeth describes having Holter monitors, and event monitor and even a stress study it is not aware of any concerning findings. She has not seen his rad technologist in quite some period of time. We will continue his metoprolol as we can observe his heart rate blood pressure and pulse. Patient did admit to mild lightheadedness as of late. Suspect component of anxiety, question of superimposed on higher heart rate than normal ?inappropriate sinus tachycardia's is other and potential recent influence of intravascular depletion resulting in a higher heart rate (note patient admits to low-grade temp 2 weeks ago which is resolved 5 days ago he had 2 bouts of diarrhea also note below). I question with his diagnosis of adrenal hyperplasia if he is predisposed towards salt wasting and more likely to develop intravascular depletion. Will observe on telemetry, check thyroid function studies, complete cardiac enzyme panel, give 250 to 500 cc of fluid and check orthostatic vitals in the a.m. Would be unlikely to get an echocardiogram on a nonemergent basis over the weekend. Ordered: Orthostatic Vitals Signs Troponin 2. Hyponatremia (E87.1: Hypo-osmolality and hyponatremia) Question secondary to diarrhea. Will check serum cortisol in the a.m., check thyroid function studies for either hyperthyroidism resulting in above for hypothyroidism resulting in hyponatremia. Will gently hydrate Ordered: Sodium Chloride 0.9% intravenous solution 500 mL, 500 mL, IV, 50 mL/hr, Routine, Start date 08/30/21 4:38:00 EDT, 10 hour(s), Total volume (mL): 500, 93 kg, 2.1, m2 Cortisol Orthostatic Vitals Signs TSH With T4fr Reflex 3. Hyperlipidemia (E78.5: Hyperlipidemia, unspecified) Continue pravastatin 4. Obstructive sleep apnea (G47.33: Obstructive sleep apnea (adult) (pediatric)) Patient states he had a sleep study in 2004 and was told it was mild. Attempted to review any suspicious symptoms which she denied. Observe while resting overnight 5. Thrombocytopenia (D69.6: Thrombocytopenia, unspecified) No recent lab test to determine if chronic or if due to the recent viral illness above. Repeat in the a.m. 6. Obesity (E66.9: Obesity, unspecified) Patient would benefit from weight loss with above comorbidities 7. Hiatal hernia (K44.9: Diaphragmatic hernia without obstruction or gangrene) Await confirmation of home meds not clinically symptomatic 8. Congenital adrenal hyperplasia (E25.0: 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) Patient states he is on dexamethasone which will be continued during his hospitalization Orders: acetaminophen, 650 mg = 2 tab(s), Tab, Oral, q6hr PRN Pain, Routine, Start date 08/30/21 4:39:00 EDT, 08/30/21 4:39:00 EDT Basic Metabolic Panel C-Reactive Protein Cardiac Monitoring CBC w/ Auto Diff Magnesium Level Notify Provider Vital Signs Notify Provider Vital Signs Place in Status Regular Diet Resuscitation Status - Full Up ad Suad Vital Signs Weight Admit patient as an observation with the anticipation he would not require 2 midnight stay Extracted from: Title:ED Note Author:Alec Fountain DO Date: Palpitations (R00.2: Palpita tions) Orders: D-Dimer ECG 12 Lead Adult ED Physician consult Hospitalist for continued care Troponin [facility]04-03-2022 Hospital Discharge instructions Follow Up Care 08/30/2021 01:23:32 With:Sagar Zamarripa Address: [facility] [address] [place] [phone]- When: Unknown Comments:Thrombocytopenia With:DOUG ARTEAGA Address: [address] [place] [phone]- Business (1) When:09/07/2021 09:20:00 [facility]12-14-2017 Telephone encounter Note* Telephone Encounter - Kati Mendieta CNP - 05/12/2017 8:08 AM EST Needs appt [id number] Miscellaneous Notes* Telephone Encounter - Kati Mendieta CNP - 05/12/2017 8:08 AM EST Needs appt documented in this [id number] Telephone encounter Note* Telephone Encounter - Kati Mendieta CNP - 04/18/2017 7:30 AM EST Patient has not been seen since April 2016. Please arrange 1 month refill and office visit [id number] Miscellaneous Notes* Telephone Encounter - Kati Mendieta CNP - 04/18/2017 7:30 AM EST Patient has not been seen since April 2016. Please arrange 1 month refill and office visit [facility]* Diagnosis Hypercholesteremia Pure hypercholesterolemia Essential hypertension Unspecified essential hypertension documented in this encounter [employer] Phone: evaluation note* Diagnosis Screening PSA (prostate specific antigen) Special screening for malignant neoplasm of prostate documented in this encounter [employer] Phone: evaleovela note* Diagnosis Palpitations documented in this encounter [employer] Phone: evalnllkdo note* Diagnosis Excessive daytime sleepiness Other sleep apnea documented in this encounter [facility]* Diagnosis Personal history of tobacco use Personal history of tobacco use, presenting hazards to health documented in this encounter [facility]* Diagnosis Screening for AAA (abdominal aortic aneurysm) Screening for other and unspecified cardiovascular conditions documented in this encounter [facility]* Diagnosis Leg edema, left Edema documented in this encounter [facility] Narrative No data available for this section [facility] Discharge instructions No data available for this section [facility] No data available for this section [facility] History of Present Illness * Rubi Berger, SIGNAL OPERATOR LINGUIST - 04/04/2019 7:37 PM EST The patient was educated on the use of a holter monitor. The patient's comprehension was high. The patient was able to verbalize recall. The patient was instructed on how and when to return the monitor. documented in this encounter* Roberta Richards RCP - 12/03/2019 11:00 AM EDT The patient was educated on the use of an event monitor. The patient's comprehension was high. The patient was able to verbalize recall. The patient was instructed on how and when to return the monitor. documented in this encounter Advance Directives No Advanced Directives Records FoundDocuments on File Type Date Recorded Patient Radiopharmacist Expl anation Advance Directives and Living Will Power of Vinyl Hanger Documents on File Type Date Recorded Patient Radiopharmacist Expl anation Advance Directives and Living Will Power of Vinyl Hanger Documents on File Type Date Recorded Patient Radiopharmacist Expl anation ACP-Advance Directive ACP-Power of Vinyl Hanger Healthcare Agents on File Name Relationship Healthcare Agent Relationshi p Communication Tonia Dsouza Brother/Sister Primary Decision Maker Healthcare Agents on File Name Relationship Healthcare Agent Relationshi p Communication Tonia Dsouza Brother/Sister Primary Decision Maker Healthcare Agents on File Name Relationship [facility] Tonia Dsouza Brother/Sister Primary Decision Maker Assessments Diagnosis Burning with urination Dysuria Diagnosis Tachycardia Tachycardia, unspecified Diagnosis Palpitations Diagnosis Hypercholesteremia Pure hypercholesterolemia Essential hypertension Unspecified essential hypertension Diagnosis Arm paresthesia, right Disturbance of skin sensation Diagnosis Diplopia- Primary Nonintractable episodic headache, unspecified headache type Diagnosis Palpitations- Primary Diagnosis Skin lesion of left arm Unspecified disorder of skin and subcutaneous tissue Squamous cell cancer of skin of forearm, left Discharge Instructions * Instructions* Devin Lui MD - 11/19/2019 Return to the Emergency Department immediately if you develop worsening symptoms eluding chest pain, shortness of breath, palpitations, or you have any other concerns. Please follow up with your rad technologist and family doctor in 1-2 days. * Attachments The following attachments cannot be sent through Care Everywhere. * Rate-Control Medicines: General Info (Lebanese) documented in this encounter* Attachments The following attachments cannot be sent through Care Everywhere. * Cardiac Arrhythmia (Lebanese) documented in this encounter* Attachments The following attachments cannot be sent through Care Everywhere. * Numbness and Tingling (Lebanese) documented in this encounter* Attachments The following attachments cannot be sent through Care Everywhere. * Numbness and Tingling (Lebanese) documented in this encounter* Attachments The following attachments cannot be sent through Care Everywhere. * Diplopia (Lebanese) documented in this encounter* Attachments The following attachments cannot be sent through Care Everywhere. * Palpitations (Lebanese) documented in this encounter Reason for Referral Status Reason Specialty Diagnoses / Procedures Referre d By Contact Referred To Contact Closed EKG Diagnoses Palpitations Procedures Cardiac event monitor Demetrius Jimenez MD [address] [place] [phone] [facility] [address] [place] [address] Status Reason Specialty Diagnoses / Procedures Referred By Contact Referred To Contact Open Diagnoses Palpitations Procedures Holter Monitor 48 Hour Siomara Mejia MD [address] [place] [address] Status Reason Specialty Diagnoses / Procedures Referre d By Contact Referred To Contact Open Diagnoses Palpitations Procedures Cardiac event monitor HC EVENT MONITOR - [facility] Demetrius Jimenez MD [address] [place] [id number] Specialty Diagnoses / Procedures Referred By Contac t Referred To Contact Sleep Center Diagnoses Excessive daytime sleepiness Other sleep apnea Procedures Baseline Diagnostic Sleep Study Doug Arteaga MD [address] [place] [address] Referral ID Status Reason Start Date Expiration Date V isits Requested Visits Authorized [id number] Not Required - RTA 09/12/2023 09/11/2024 1 1 Specialty Diagnoses / Procedures Referred By Juma t Referred To Contact Radiology Diagnoses Personal history of tobacco use Procedures CT Lung Screen (Initial/Annual/Baseline) Doug Arteaga MD [address] [place] [phone] Referral ID Status Reason Start Date Expiration Date V isits Requested Visits Authorized [id number] Not Required - RTA 05/02/2023 05/01/2024 1 1 Specialty Diagnoses / Procedures Referred By Juma ya Referred To Contact Diagnoses Screening for AAA (abdominal aortic aneurysm) Procedures Vascular AAA screening Doug Arteaga MD [address] [place] [address] Referral ID Status Reason Start Date Expiration Date V isits Requested Visits Authorized [id number] Not Required - RTA 05/02/2023 05/01/2024 1 1 Specialty Diagnoses / Procedures Referred By Juma ya Referred To Contact Diagnoses Leg edema, left Procedures Vascular duplex lower extremity venous left Doug Arteaga MD [address] [place] [address] Referral ID Status Reason Start Date Expiration Date V isits Requested Visits Authorized [id number] Not Required - RTA 03/21/2024 03/21/2025 1 1 Summary Purpose Family History No Family History Records Found No data available for this section No data available for this section No Family History Records FoundNo Family History Records FoundNo Family History Records Found Additional Source Comments Reason for Visit (unrecogniz ed section and content) Status Reason Specialty Diagnoses / Procedures Referre d By Contact Referred To Contact Closed Cardiology Diagnoses Other chest pain Procedures Stress test, myoview HC NM SEST. REST STRESS MULT Doug Arteaga MD [address] [place], [place] [id number] Reason Comments Tachycardia states has fast hear t beat off and on -today it didnt go away as fast as normal Status Reason Specialty Diagnoses / Procedures Referre d By Contact Referred To Contact Closed EKG Diagnoses Palpitations Procedures Cardiac event monitor Demetrius Jimenez MD [address] [place] [phone] [facility] [address] [place] [id number] Reason Comments Tachycardia rapid heart rate papo und noon while cooking. states this happened a few days ago but went away within a minute. Today pt had to take dose of toprol and it took 20 minutes for it to pass. Reason Comments Tingling c/o tingling to head , face, right arm, and right leg that comes and goes for the past week Reason Comments Diplopia started yesterday Headache intermittent since y day Reason Comments Tachycardia around 1400 today pt said he felt his heart start going fast while walking, he took is medications and feels fine know Status Reason Specialty Diagnoses / Procedures Referre d By Contact Referred To Contact Open Diagnoses Palpitations Procedures Cardiac event monitor HC EVENT MONITOR - Demetrius Nayak MD [address] [place] [address] Reason Comments Medication Refill Specialty Diagnoses / Procedures Referred By Juma ya Referred To Contact Sleep Center Diagnoses Excessive daytime sleepiness Other sleep apnea Procedures Baseline Diagnostic Sleep Study Doug Arteaga MD [address] [place] [address] [facility] [address] [place] [address] Referral ID Status Reason Start Date Expiration Date V isits Requested Visits Authorized [id number] Not Required - RTA 06/28/2023 06/27/2024 1 1 Specialty Diagnoses / Procedures Referred By Juma ya Referred To Contact Radiology Diagnoses Personal history of tobacco use Procedures CT Lung Screen (Initial/Annual/Baseline) Doug Arteaga MD [address] [place] [phone] Referral ID Status Reason Start Date Expiration Date V isits Requested Visits Authorized [id number] Not Required - RTA 05/02/2023 05/01/2024 1 1 Specialty Diagnoses / Procedures Referred By Juma ya Referred To Contact Diagnoses Screening for AAA (abdominal aortic aneurysm) Procedures Vascular AAA screening Doug Arteaga MD [address] [place] [phone] Referral ID Status Reason Start Date Expiration Date V isits Requested Visits Authorized [id number] Not Required - RTA 05/02/2023 05/01/2024 1 1 Specialty Diagnoses / Procedures Referred By Contac t Referred To Contact Diagnoses Leg edema, left Procedures Vascular duplex lower extremity venous left Doug Arteaga MD [address] [place] [phone] Referral ID Status Reason Start Date Expiration Date V isits Requested Visits Authorized [id number] Not Required - RTA 03/21/2024 03/21/2025 1 1 Care Team (unrecognized sect ion and content) Surgical Services Asst Relationship Specialty Start Date End Date Doug Arteaga MD PCP - General Family Medicine 04/30/16 Surgical Services Asst Relationship Specialty Start Date End Date Doug Arteaga MD PCP - General Family Medicine 04/30/16 Surgical Services Asst Relationship Specialty Start Date End Date Doug Arteaga MD [address] [place], [place] [phone] PCP - General Family Medicine 06/09/17 Surgical Services Asst Relationship Specialty Start Date End Date Doug Arteaga MD [address] [place], [place] [phone] PCP - General Family Medicine 06/09/17 Surgical Services Asst Relationship Specialty Start Date End Date Doug Arteaga MD [address] [place], [place] [phone] PCP - General Family Medicine 06/09/17 (unrecognized sect ion and content) No Status Records FoundNo Status Records FoundNo Status Records FoundNo Status Records Found INFORMATION SOURCE (unrecogn ized section and content) DATE CREATED AUTHOR 10/12/2022 Kathleen trinidad DATE CREATED AUTHOR AUTHOR'S ORGANIZ ATION 04/30/2023 [facility] DATE CREATED AUTHOR AUTHOR'S ORGANIZ ATION 10/01/2023 [facility] DATE CREATED AUTHOR AUTHOR'S ORGANIZ ATION 03/26/2024 Elizabeth Dale Jose Armando sommers FOR RECORDS PERTAINING TO PATIENTS WHO ARE OR HAVE BEEN ENROLLED IN A CHEMICAL DEPENDENCY/SUBSTANCEABUSE PROGRAM, SOME INFORMATION MAY BE OMITTED. This clinical summary was aggregated from multiple sources. Caution should be exercised in using it in the provision of clinical care. This summary normalizes information from multiple sources, and as a consequence, information in this document may materially change the coding, format and clinical context of patient data. In addition, data may be omitted in some cases. CLINICAL DECISIONS SHOULD BE BASED ON THE PRIMARY CLINICAL RECORDS. [facility] [employer] provides no warranty or guarantee of the accuracy or completeness of information in this document.
[2024-05-01 08:38] LABS: Basophils Percent Auto 0.1 % (0.2-2.0); Eosinophils Percent Auto 0.1 % (0.9-7.0); Hematocrit 38.8 % (42.0-54.0); Hemoglobin 12.5 g/dL (14.0-18.0); Immature Granulocytes Abs Auto 0.04 10^3/uL (0.00-0.03); Immature Granulocytes Pct Auto 0.5 % (0.0-0.5); Lymphocytes Absolute Auto 2.5 10^3/uL (1.2-3.8); Lymphocytes Percent Auto 33.5 % (20.5-60.0); Mean Corpuscular HGB Conc 32.2 g/dL (29.9-35.2); Mean Corpuscular Hemoglobin 34.4 pg (25.9-34.0); Mean Corpuscular Volume 106.9 fL (80.0-94.0); Mean Platelet Volume 12.6 fL (9.5-13.5); Monocytes Absolute Auto 1.3 10^3/uL (0.3-0.8); Monocytes Percent Auto 17.2 % (1.7-12.0); Neutrophils Absolute Auto 3.6 10^3/uL (1.4-6.5); Neutrophils Percent Auto 48.6 % (43.0-75.0); Platelet Count 106 10^3/uL (150-450); Red Blood Count 3.63 10^6/uL (4.70-6.10); Red Cell Distribution Width 14.3 % (11.0-15.0); White Blood Count 7.5 10^3/uL (4.0-11.0)
[2024-05-01 08:43] LABS: Alanine Aminotransferase 20 U/L (16-63); Albumin Level 3.1 g/dL (3.4-5.0); Alkaline Phosphatase 82 U/L (46-116); Anion Gap 9.1; Aspartate Amino Transferase 17 U/L (15-37); Bilirubin Total 0.7 mg/dL (0.2-1.0); Calcium 8.3 mg/dL (8.5-10.1); Carbon Dioxide 32.3 mmol/L (21.0-32.0); Chloride 107 mmol/L (98-107); Chol HDL Ratio 2.3; Cholesterol 131 mg/dL (<=200); Estimated GFR (African America >60 (>=60 mL/min/1.73m^2); Estimated GFR (Non-African Ame >60 (>=60 mL/min/1.73m^2); Globulin 3.2 g/dL; Glucose 88 mg/dL (74-106); HDL Cholesterol 57 mg/dL (40-60); LDL Cholesterol Calculated 67.6 mg/dL; Potassium 4.4 mmol/L (3.5-5.1); Sodium 144 mmol/L (136-145); Total Protein 6.3 g/dL (6.4-8.2); Triglycerides 32 mg/dL (<=150); VLDL CHOLESTEROL 6.4 mg/dL
== END 2024-05-01 07:51 | disposition home or self-care (01) ==
LOC: LAB 07:52
PROVIDERS: PCP Family Medicine; Visit Provider Family Medicine
DX: E27.40 Unspecified adrenocortical insufficiency (principal); D69.6 Thrombocytopenia, unspecified; I10 Essential (primary) hypertension; E78.00 Pure hypercholesterolemia, unspecified
CPT/HCPCS: 36415; 80053; 80061; 85025

== ENCOUNTER 2024-05-20 14:01 | Inpatient (IN) | payer MEDICARE, OTHER, SELFPAY ==
[2024-05-20] VITALS (19 sets, daily range): BP systolic 95–137; BP diastolic 55–88; PULSE 61–83; TEMP 36.9–37.1; O2SAT 91–98; BMI 37.9; BMI 37.2
--- OUTSIDE RECORDS SUMMARY | 2024-05-20 14:10 | XMS_ITS | CCD ---
Author Organization [facility] Care Team Providers Care Social Science Instructor Name Role Phone Doug Arteaga Primary Care Provider DOUG ARTEAGA Primary Care Physician Doug Arteaga MD. Primary Care Provider LIZZIE Manzo, DR DASILVA Attending Unavailable HAY ., DR DASILVA Consulting Unavailable HAY ., DR DASILVA Admitting Unavailable MISC, DR COOPER Primary Care Unavailable MISC, DR COOPER Primary Care Unavailable VERYOVANI CASILLAS Attending Unavailable YOVANI ARTEAGA Consulting Unavailable YOVANI ARTEAGA Admitting Unavailable LIZZIE ., DR DASILVA Attending Unavailable HAY ., DR DASILVA Consulting Unavailable HAY ., DR DASILVA Admitting Unavailable MISC, DR COOPER Primary Care Unavailable SIOMARA BAEZA Attending Unavailabl e DOUG ARTEAGA Referring Unavailable SIOMARA BAEZA Referring Unavailabl e Doug Arteaga MD Primary Care Provider DOUG ARTEAGA Attending Unavailable VERHOFF, DOUG Blackwood Referring Unavailable VERHOFF, DOUG L Primary Care Unavailable VERHOFF, DOUG L Referring Unavailable VERHOFF, DOUG L Primary Care Unavailable VERHOFF, DOUG L Primary Care Unavailable VERHOFF, DOUG L Referring Unavailable VERHOFF, DOUG L Attending Unavailable VERHOFF, DOUG L Primary [...] Care Unavailable VERHOFF, DOUG L Referring Unavailable DOUG ARTEAGA Attending Unavailable VERVINNY, DOUG Blackwood Attending Unavailable ARNOL, DOUG Blackwood Referring Unavailable ARNOL, DOUG Blackwood Primary Care Unavailable Robson Cartwright Attending Unavailable OJUKWU, Mbanefo Admitting Unavailable OJUKWU, Mbanefo Attending Unavailable [place], Samantha Consulting Unavailable [place], Samantha Consulting Unavailable [place], Samantha Consulting Unavailable [place], Samantha Consulting Unavailable [place], Samantha Consulting Unavailable [place], Samantha Consulting Unavailable [place], Samantha Consulting Unavailable [place], Samantha Consulting Unavailable [place], Samantha Consulting Unavailable OJUKWU, Mbanefo Admitting Unavailable OJUKWU, Mbanefo Attending Unavailable MD Hiram Sunshine Consulting Unavailable Bita, Hiram Kraft Consulting Unavailable Bita, Hiram Kraft Consulting Unavailable Medications Current Medications Medication Drug Class(es) Dates Sig (Normalized) Sig (Original) amLODIPine 2.5 mg oral tablet (13 sources) Dihydropyridine Calcium Channel Aleta Start: 08-30-2021 amLODIPine 2.5 mg Tab Refills(s) 0 Start Date: 08/30/21 Status: Ordered Start: 12-11-2020 take 1 tablet by yves th once daily amLODIPine (NORVASC) 2.5 MG tablet take 1 tablet by mouth once daily 30 tablet 11 12/11/2020 Active Start: 12-27-2019 take 1 tablet by yves th once daily amLODIPine (NORVASC) 2.5 MG tablet Take 1 tablet by mouth daily 30 tablet 12/27/2019 Active aspirin 81 mg delayed release oral tablet (19 sources) Platelet Aggregation Inhibitor, Nonsteroidal Anti-inflammatory Drug Start: 05-16-2024 take 1 tablet by mouth once daily aspirin 81 mg Oral EC Tab 81 mg = 1 tab(s), Oral, Daily, # 30 tab(s), Refills(s) 0, other reason (Rx) Start Date: 05/16/24 Status: Ordered Start: 02-20-2010 take 1 tablet by yves th once daily aspirin 81 mg oral tablet = 1 tab(s), Oral, Daily, # 30 tab(s), Refills(s) 0 Start Date: 02/20/10 Status: Ordered take 1 tablet by yves th once daily aspirin 81 MG EC tablet Take 81 mg by mouth daily. 0 Active atorvastatin 40 mg oral tablet (10 sources) HMG-CoA Reductase Inhibitor Start: 05-16-2024 take 1 tablet by mouth once daily atorvastatin 40 mg Tab 40 mg = 1 tab(s), Oral, Daily, # 30 tab(s), Refills(s) 0, Pharmacy: [facility]/pharmacy #[id number], 168, cm, 05/15/24 15:01:00 EST, Height/Length Dosing, 109.6, kg, 05/15/24 15:01:00 EST, Weight Dosing Start Date: 05/16/24 Status: Ordered Start: 02-20-2010 atorvastatin ( LIPITOR) 10 MG tablet Take by mouth 0 02/20/2010 Active calcium (as citrate)-vitamin D 500 mg-200 intl units oral tablet, chewable (6 sources) Start: 02-20-2010 calcium (as ci trate)-vitamin D [...] day(s), # 14 cap(s), Refills(s) 0, [id number], 170, cm, 11/27/22 16:29:00 EDT, Height/Length Dosing, [...] release oral capsule (4 sources) Calcium Channel Aleta Start: 12-15-2023 take 1 capsule by mouth once daily dilTIAZem (CARDIZEM CD) 120 MG extended release capsule Take 1 capsule by mouth daily 90 capsule 3 12/15/2023 Active Start: 02-07-2023 take 1 capsule by mo [facility] once daily dilTIAZem (CARDIZEM CD) 120 MG extended release capsule Take 1 capsule by mouth daily 90 capsule 3 02/07/2023 Active DilTIAZem (Eqv-Cardizem CD) 120 mg/24 hours oral capsule, extended release (1 source) Start: 05-15-2024 DilTIAZem (Eqv-Cardizem CD) 120 mg/24 hours oral capsule, extended release See Instructions, Refills(s) 0 Start Date: 05/15/24 Status: Ordered furosemide 20 mg oral tablet (3 sources) [...] 25 mg oral tablet (20 sources) beta-Adrenergic Aleta Start: 05-15-2024 Lopressor 25 mg oral tablet See Instructions, Refills(s) 0 Start Date: 05/15/24 Status: Ordered Start: 12-15-2023 take 1 tablet by yves th twice daily metoprolol tartrate (LOPRESSOR) 25 MG tablet Take 1 tablet by mouth 2 times daily 360 tablet 1 12/15/2023 Active Start: 10-12-2023 take 1 tablet by yves th twice daily metoprolol tartrate (LOPRESSOR) 25 MG tablet Take 1 tablet by mouth 2 times daily 360 tablet 1 10/12/2023 Active Start: 11-27-2022 Metoprolol tar trate 25 mg Tab See Instructions, 2 tabs in the morning and evening and 1 tab in the afternoon, # 20 tab(s), Refills(s) 0, Pharmacy: [facility] #[id number], 170, cm, 11/27/22 16:29:00 EDT, Height/Length Dosing, [...] QID, # 120 tab(s), Refills(s) 0, Pharmacy: [address], 170, cm, 08/30/21 1:31:00 EDT, Height/Length Dosing, 93, kg, 08/30/21 1:31:00 EDT, Weight Dosing Start Date: 09/01/21 Status: Ordered Start: 02-09-2021 take 1 tablet by yves th four [...] Start: 05-17-2016 take 1 tablet by yves at bedtime pravastatin 40 mg Tab 40 [...] Start: 11-19-2019 take 1 tablet by yves th once daily isosorbide mononitrate (IMDUR) 30 MG [...] Problem Date Documented Date Episodic/Chronic Abdominal hernia (8 sources) Diaphragmatic hernia; Translations: [Diaphragmatic hernia without obstruction or gangrene] Onset: 08-30-2021 Episodic Blindness and vision defects (1 source) Diplopia; Translations: [Diplopia] Episodic Cardiac dysrhythmias (9 sources) Supraventricular tachycardia; Translations: [Supraventricular tachycardia] Onset: 08-31-2021 Chronic Coagulation and hemorrhagic disorders (5 sources) Thrombocytopenic disorder; Translations: [Thrombocytopenia, unspecified] Onset: 08-30-2021 Resolved: 05-02-2023 Chronic Coronary atherosclerosis and other heart disease (2 sources) Coronary arteriosclerosis; Translations: [Atherosclerotic heart disease of [place] coronary artery without angina pectoris] Onset: 09-24-2015 08-01-2021 Chronic Disorders of lipid metabolism (20 sources) Hypercholesterolemia; Translations: [Pure hypercholesterolemia, unspecified] Onset: 04-30-2016 12-07-2016 Chronic Esophageal disorders (20 sources) Gastroesophageal reflux disease without esophagitis; Translations: [Gastro-esophageal reflux disease without esophagitis] Onset: 03-19-2016 03-19-2016 Chronic Essential hypertension (20 sources) Hypertensive disorder; Translations: [Essential hypertension] Onset: 03-19-2013 03-19-2013 Chronic Fluid and electrolyte disorders (9 sources) Hypo-osmolality and or hyponatremia; Translations: [Hypo-osmolality and hyponatremia] Onset: 08-30-2021 Episodic Genitourinary symptoms and ill-defined conditions (7 sources) Post-micturition incontinence 05-08-2019 Chronic Genitourinary symptoms and ill-defined conditions (15 sources) Scalding pain on urination ; Translations: [Increased frequency of urination] 05-08-2019 Episodic Headache; including migraine (1 source) Headache; Translations: [Nonintractable episodic headache, unspecified headache type] Episodic Hyperplasia of prostate (7 sources) Benign prostatic hypertrophy with outflow obstruction 05-03-2019 Chronic Nonspecific chest pain (1 source) Chest pain; Translations: [Chest pain, unspecified] Onset: 05-15-2022 Episodic Other ear and sense organ disorders (3 sources) Unspecified hearing loss, right ear; Translations: [UNSPECIFIED HEARING LOSS RIGHT EAR] Onset: 02-11-2022 Chronic Other endocrine disorders (20 sources) Hypoadrenalism; Translations: [Unspecified adrenocortical insufficiency] Onset: 03-19-2013 03-19-2013 Chronic Other endocrine disorders (8 sources) Congenital adrenal hyperplasia; Translations: [Congenital adrenogenital [...] Translations: [Obesity, unspecified] Onset: 08-30-2021 Chronic Other screening for suspected conditions (not mental disorders or infectious disease) (11 sources) Patient encounter status; Translations: [Encounter for screening for malignant neoplasm of prostate] Onset: 11-02-2023 Episodic Other skin disorders (7 sources) Actinic keratosis 05-03-2019 Episodic Residual codes; [...] apnea] Onset: 10-17-2023 Chronic Residual codes; unclassified (7 sources) Family history of prostate cancer 05-08-2019 Episodic Residual codes; unclassified (7 sources) H/O: anticoagulant therapy 05-03-2019 Episodic Residual codes; unclassified (1 source) Edema of left lower limb; Translations: [Localized edema] 03-23-2024 Episodic Residual codes; unclassified (1 source) Localized edema; Translations: [Localized edema] Onset: 03-23-2024 Episodic Skin and subcutaneous tissue infections (1 source) Cellulitis of left lower limb; Translations: [Cellulitis of left lower limb] Onset: 03-23-2024 Episodic Substance-related disorders (9 sources) Smoker; Translations: [Nicotine dependence, cigarettes, uncomplicated] Onset: 06-28-2022 05-08-2019 Chronic Transient cerebral ischemia (5 sources) Transient cerebral ischemic attack, unspecified; Translations: [G45.9] Onset: 05-15-2024 Chronic Urinary tract infections (8 sources) Urinary tract infectious disease; Translations: [Urinary tract infection, site not specified] Onset: 11-27-2022 05-08-2019 Episodic Past or Other Problems Problem Classification Problem Date Documented Da te Episodic/Chronic Cancer of prostate (7 sources) History of malignant neoplasm of prostate Resolved: 05-03-2019 05-03-2019 Episodic Cardiac dysrhythmias (11 sources) Tachycardia; Translations: [Palpitations] Onset: 09-24-2015 Episodic Conditions associated with dizziness or vertigo (4 sources) Dizziness and giddiness; Translations: [DIZZINESS AND GIDDINESS] Onset: 06-26-2022 Episodic Malaise and fatigue (2 sources) Other fatigue; Translations: [Other fatigue] Onset: 06-28-2023 Episodic Other aftercare (1 source) Other chcf (current) drug therapy; Translations: [OTH ALF CURRENT DRUG THERAPY] Onset: 06-28-2022 Episodic Other aftercare (1 source) 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; Translations: [ALF CURRENT USE OF ASPIRIN] Onset: 02-13-2022 Episodic [...] skin, unspecified] Onset: 03-05-2021 03-05-2021 Episodic Other skin disorders (1 source) Disorder [...] Test Name Value Interpretation Reference Range Facility [facility] 05-16-2024 Anion gap [Moles/Vol] 11 mmol/L Normal 6-16 [facility] Comment on above: Performed By: #### 2 [id number] #### [facility] [address] [place] [address] Calcium [Mass/Vol] 8.7 mg/dL Low 8.9-11.1 [facility] Comment on above: Performed By: #### 2 [id number] #### [facility] [address] [place] [address] Chloride [Moles/Vol] 105 mmol/L Normal 101-111 [facility] Comment on above: Performed By: #### 2 [id number] #### [facility] [address] [place] [address] CO2 [Moles/Vol] 26 mmol/L Normal 21-31 [facility] Comment on above: Performed By: #### 2 [id number] #### [facility] [address] [place] [address] Creatinine [Mass/Vol] 0.8 mg/dL Normal 0.5-1.3 [facility] Comment on above: Performed By: #### 2 [id number] #### [facility] [address] [place] [address] Glucose [Mass/Vol] 85 mg/dL Normal 55-199 [facility] Comment on above: Performed By: #### 2 [id number] #### [facility] [address] [place] [address] Potassium [Moles/Vol] 4.0 mmol/L Normal 3.5-5.3 [facility] Comment on above: Performed By: #### 2 [id number] #### [facility] [address] [place] [address] Sodium [Moles/Vol] 138 mmol/L Normal 135-145 [facility] Comment on above: Performed By: #### 2 [id number] #### [facility] [address] [place] [address] Urea nitrogen [Mass/Vol] 18 mg/dL Normal 5-21 [facility] Comment on above: Performed By: #### 2 [id number] #### [facility] [address] [place] [address] Urea nitrogen/Creatinine [Mass ratio] 22 No Units High 10-20 [facility] Comment on above: Performed By: #### 2 [id number] #### [facility] [address] [place] [address] CBC w/ Auto Diffon 4 Basophils/100 WBC (Bld) 0.2 % Normal 0.0-2.0 [facility] Comment on above: Performed By: #### 2 [id number] #### [facility] [address] [place] [address] Basophils/Leukocytes Auto (Bld) [Pure # fraction] 0.0 E9/L Normal 0.0-0.2 [facility] Comment on above: Performed By: #### 2 [id number] #### [facility] [address] [place] [address] Eosinophils (Bld) [#/Vol] 0.0 E9/L Normal 0.0-0.5 [facility] Comment on above: Performed By: #### 2 [id number] #### [facility] [address] [place] [address] Eosinophils/100 WBC (Bld) 0.2 % Normal 0.0-8.0 [facility] Comment on above: Performed By: #### 2 [id number] #### [facility] [address] [place] [address] Erythrocyte distribution width (RBC) [Ratio] 14.8 % High 10.9-14.2 [facility] Comment on above: Performed By: #### 2 [id number] #### [facility] [address] [place] [address] Hematocrit (Bld) [Volume fraction] 38.5 % Normal 37.7-49.0 [facility] Comment on above: Performed By: #### 2 [id number] #### [facility] [address] [place] [address] Hemoglobin (Bld) [Mass/Vol] 13.1 g/dL Low 13.5-17.5 [facility] Comment on above: Performed By: #### 2 [id number] #### [facility] [address] [place] [address] Lymphocytes (Bld) [#/Vol] 2.0 E9/L Normal 1.0-4.0 [facility] Comment on above: Performed By: #### 2 [id number] #### [facility] [address] [place] [address] Lymphocytes/100 WBC (Bld) 35.7 % Normal 14.0-50.0 [facility] Comment on above: Performed By: #### 2 [id number] #### [facility] [address] [place] [address] MCH (RBC) [Entitic mass] 34.8 pg High 27.0-34.0 [facility] Comment on above: Performed By: #### 2 [id number] #### [facility] [address] [place] [address] MCHC (RBC) [Mass/Vol] 34.0 g/dL Normal 31.4-36.0 [facility] Comment on above: Performed By: #### 2 [id number] #### [facility] [address] [place] [address] MCV (RBC) [Entitic vol] 102.4 fL High 80.0-100.0 [facility] Comment on above: Performed By: #### 2 [id number] #### [facility] [address] [place] [address] Monocytes (Bld) [#/Vol] 1.0 E9/L Normal 0.2-1.0 [facility] Comment on above: Performed By: #### 2 [id number] #### [facility] [address] [place] [address] Neutrophils (Bld) [#/Vol] 2.6 E9/L Normal 2.0-7.5 [facility] Comment on above: Performed By: #### 2 [id number] #### [facility] [address] [place] [address] Neutrophils/100 WBC (Bld) 46.0 % Normal 36.0-75.0 [facility] Comment on above: Performed By: #### 2 [id number] #### [facility] [address] [place] [address] Platelet mean volume (Bld) [Entitic vol] 10.5 fL Normal 6.4-10.8 [facility] Comment on above: Performed By: #### 2 [id number] #### [facility] [address] [place] [address] Platelets (Bld) [#/Vol] 97.0 E9/L Low 150.0-500.0 [facility] Comment on above: Performed By: #### 2 [id number] #### [facility] [address] [place] [address] RBC (Bld) [#/Vol] 3.8 E12/L Low 4.3-5.9 [facility] Comment on above: Performed By: #### 2 [id number] #### [facility] [address] [place] [address] WBC corrected for nucl RBC Auto (Bld) [#/Vol] 5.6 E9/L Normal 4.0-11.0 [facility] Comment on above: Performed By: #### 2 [id number] #### [facility] [address] [place] [address] CHEMISTRYOrdered By: SYSTEM SYSTEM on 05-16-2024 Anion gap [Moles/Vol] 11 mmol/L Normal 6 - 16 mEq/L [facility] Calcium [Mass/Vol] 8.7 mg/dL Low 8.9 - 11. 1 mg/dL [facility] Chloride [Moles/Vol] 105 mmol/L Normal 101 - 1 11 mmol/L [facility] Cholesterol [Mass/Vol] 122 mg/dL Normal 120 - 200 mg/dL [facility] Cholesterol in HDL [Mass/Vol] 46 mg/dL Invalid Interpretation Code [facility] Comment on above: Result Comment: '>= 60 LOW RISK' '<= 40 HIGH RISK' Cholesterol in LDL [Mass/Vol] 70 mg/dL Normal <=129mg/dL [facility] Cholesterol in VLDL [Mass/Vol] 14 mg/dL Normal 7 - 40 mg/dL [facility] CO2 [Moles/Vol] 26 mmol/L Normal 21 - 31 mmol/L [facility] Creatinine [Mass/Vol] 0.8 mg/dL Normal 0.5 - 1.3 mg/dL [facility] eGFR 95 mL/min/1.73 m2 Normal >=59mL/min /1 .73 m2 [facility] Glucose [Mass/Vol] 85 mg/dL Normal 55 - 199 mg/dL [facility] Potassium [Moles/Vol] 4.0 mmol/L Normal 3.5 - 5.3 mmol/L [facility] Sodium [Moles/Vol] 138 mmol/L Normal 135 - 145 mmol/L [facility] Triglyceride [Mass/Vol] 71 mg/dL Normal <=149mg/dL [facility] Urea nitrogen [Mass/Vol] 18 mg/dL Normal 5 - 21 mg/dL [facility] Urea nitrogen/Creatinine [Mass ratio] 22 mg/mg High 10 - 20 [facility] CHEMISTRYOrdered By: Deep Morris on 05-16-2024 HbA1c (Bld) [Mass fraction] 5.1 % Normal <=5.9% [facility] CTA [place] 12-18-2024 CTA Head Exam Date/Time: 05/16/2024 10:53 EST Reason for Exam: Stroke Report Review CTA neck, for report CTA head All CT scans at this facility use dose modulation, iterative reconstruction, and/or weight based dosing when appropriate to reduce radiation dose to as low as reasonably achievable. Ordering Provider: Renan Clarke FINAL REPORT Dictated: 05/16/2024 11:04 am Al Mark MD Signed (Electronic Signature): 05/16/2024 11:04 am Signed by: Al Mark MD Transcribed by: BALDOMERO Technologist: ARAM Technical Comments GFR (mL/min/1/73m2) >60 Contrast: Isovue 370 Contrast amount in ml's: 88 Normal [facility] CTA [place] 05-16-2024 CTA Neck Exam Date/Time: 05/16/2024 10:53 EST Reason for Exam: Stroke Report IMPRESSION: [LESS THAN 10% STENOSIS BILATERAL INTERNAL CAROTID ARTERIES. NEGATIVE CTA HEAD. EXAMINATION: CTA NECK WITH INTRAVENOUS CONTRAST MEDIUM. CLINICAL HISTORY: RAPID RESPONSE YESTERDAY. STROKE TECHNIQUE: CTA neck obtained and formatted as contiguous axial images from aortic arch to skull base. Thin cut, overlap, 3-D MIP, sagittal, coronal, right and left anterior oblique reconstruction obtained during postprocessing. CTA head with intravenous contrast medium obtained and formatted as contiguous axial images. Thin cut, overlap, 3-D MIP, sagittal, and coronal reconstruction obtained during postprocessing. Intravenous Contrast Medium: 88 mL Isovue-370. CTA NECK WITH INTRAVENOUS CONTRAST MEDIUM. FINDINGS: RIGHT CAROTID: Right common carotid artery: [Arises from right brachiocephalic trunk. Normal in course and caliber]. Right carotid bifurcation: Calcification at bifurcation with less than 10% stenosis by NASCET criteria. Right internal carotid artery: [Cervical, petrous, lacerum, clinoid, cavernous, and communicating segments patent.] Calcification identified within cavernous and communicating segments. LEFT CAROTID: Left common carotid artery: [Arises from aortic arch. Normal in course and caliber.] Left carotid bifurcation: Calcification at bifurcation with less than 10% stenosis by NASCET criteria. Report Left internal carotid artery:[Cervical, petrous, lacerum, clinoid, cavernous, and communicating segments patent.] Ossification identified within cavernous segments. RIGHT VERTEBRAL: Right vertebral artery arises from right subclavian artery. Pre foraminal, foraminal, extradural, and intradural segments patent. LEFT VERTEBRAL: Left vertebral artery arises from left subclavian artery. Pre foraminal, foraminal, extradural, and intradural segments patent. CTA HEAD WITH INTRAVENOUS CONTRAST MEDIUM. FINDINGS: Anterior communicating artery:[Patent]. Right anterior cerebral artery: [A1 segment patent.] [A2 segment patent.] Left anterior cerebral artery: [A1 segment patent.] [A2 segment patent.] Right internal carotid artery: [Communicating segment patent.] Left internal carotid artery: [Communicating segments patent.] Right middle cerebral artery :[M1 segment patent.] [M2 segment patent.] Left middle cerebral artery: [M1 segment patent.] [M2 segment patent.] Right posterior communicating artery: [Congenitally absent.] Left posterior communicating artery: [Congenitally absent.] Persistent circulation: [Identified.] Right posterior cerebral artery: [P1 segment patent.] [P2 segment patent.] Left posterior cerebral artery: [P1 segment patent.] [P2 segment patent.] Basilar tip and basilar artery: [Patent.] All CT scans at this facility use dose modulation, iterative reconstruction, and/or weight based dosing when appropriate to reduce radiation dose to as low as reasonably achievable. Report Ordering Provider: Renan Clarke FINAL REPORT Dictated: 05/16/2024 11:04 am Al Mark MD Signed (Electronic Signature): 05/16/2024 11:04 am Signed by: Al Mark MD Transcribed by: BALDOMERO Technologist: ARAM Technical Comments GFR (mL/min/1/73m2) >60 Contrast: Isovue 370 Contrast amount in ml's: 88 Normal [facility] Discharge Note-Nursingon Discharge Note-Nursing Discharge Note-Nursing NORY DSOUZA :1955 Visit Date:05/15/2024 Inpatient Discharge Instructions Your Care Team Admitting Physician - INES FISCHER, Zunilda Consulting Physician - Darius FISCHER, Samantha Sunshine MD, Hiram Kraft Reason for Your Visit left side tingling Your Diagnosis TIA (transient ischemic attack) Hyperlipidemia HTN (hypertension) GERD (gastroesophageal reflux disease) Smoker Paresthesia Weakness or fatigue Tests Performed HgbA1c -- Results Pending -- CT Head or Brain w/o Contrast CTA Head CTA Neck Echo w/ Saline Bubbles -- Results Pending -- XR Chest Single View Please visit your patient portal for your results or contact your primary care physician. This Is Your Medications List aspirin (aspirin 81 mg Oral EC Tab) atorvastatin (atorvastatin 40 mg Tab) diltiazem (DilTIAZem (Eqv-Cardizem CD) 120 mg/24 hours oral capsule, extended release) lansoprazole (Prevacid 30 mg Cap-EC) metoprolol (Lopressor 25 mg oral tablet) [Image Removed: STOP]Stop taking these medications dexamethasone (dexamethasone 0.5 mg oral tablet) pravastatin (pravastatin 40 mg Tab) Procedure History Repair of umbilical hernia (02/2010), lump removal (2008), Closed fracture of foot (2004), Colonoscopy (2004), Reactive arthritis of foot. Discharge Vitals Temperature (Axillary) 36.4 ???C Heart Rate (Monitored) 77 Respiratory Rate 20 Blood Pressure 134/87 Height 167.64 cm Weight 107.8 kg BMI 39.21 What to do next Instructions From Your Doctor Event Name Event Result Discharge Activity Ambulate as tolerated Discharge Restrictions No restrictions Discharge Diet(s) Fat Modified- Low cholesterol Pending Diagnostic Test Results None Discharge Instructions - Complete smoking cessation strongly advised New Follow Up Appointments after Discharge Follow Up with Darius FISCHER, SIERRA Ayala When: 06/04/2024 01:40 PM EST Comments: Please, arrive 15 minutes early to do in patient paper work. Where: [address] [facility] [address] [place] [address]- Business (1) Follow Up with DOUG ARTEAGA When: Within 5 to 7 days Comments: Office was closed for lunch. Patient needs to call to make hospital follow up appointment. Where: [address] [place] [address]- Business (1) Medications What How Much When Instructions Next Dose New aspirin (aspirin 81 mg Oral EC Tab) 1 Tablets By Mouth Every day 05/17/2024 New atorvastatin (atorvastatin 40 mg Tab) 1 Tablets By Mouth Every day Pickup at [facility]/pharmacy #[id number] Begin 05/17/2024 Unchanged diltiazem (DilTIAZem (Eqv-Cardizem CD) 120 mg/ 24 hours oral capsule, extended release) See instructions Resume 05/17/2024 Unchanged lansoprazole (Prevacid 30 mg Cap-EC) 1 Capsules By Mouth Every day Take one capsule by mouth every day 05/17/2024 Unchanged metoprolol (Lopressor 25 mg oral tablet) See instructions Resume 05/17/2024 Pharmacy Information [facility]/pharmacy #[id number]: [address], [place] [id number] [phone] What How Much When Comments Stop Taking dexamethasone (dexamethasone 0.5 mg oral tablet) 1 Tablets By Mouth Every day Stop Taking pravastatin (pravastatin 40 mg Tab) 1 Tablets By Mouth At bedtime Test Results CBC BMP WBC: 5.6 E9/L (05/16/24 06:01:00) Glucose Lvl: 85 mg/dL (05/16/24 06:01:00) RBC: 3.8 E12/L Low (05/16/24 06:01:00) BUN: 18 mg/dL (05/16/24 06:01:00) HGB: 13.1 gm/dL Low (05/16/24 06:01:00) Creatinine: 0.8 mg/dL (05/16/24 06:01:00) Hct: 38.5 % (05/16/24 06:01:00) BUN/Creat Ratio: 22 High (05/16/24 06:01:00) MCV: 102.4 fL High (05/16/24 06:01:00) Sodium Lvl: 138 mmol/L (05/16/24 06:01:00) MCH: 34.8 pg High (05/16/24 06:01:00) Potassium Lvl: 4 mmol/L (05/16/24 06:01:00) MCHC: 34 gm/dL (05/16/24 06:01:00) Chloride: 105 mmol/L (05/16/24 06:01:00) RDW: 14.8 % High (05/16/24 06:01:00) CO2: 26 mmol/L (05/16/24 06:01:00) Platelet: 97 E9/L Low (05/16/24 06:01:00) AGAP: 11 mEq/L (05/16/24 06:01:00) MPV: 10.5 fL (05/16/24 06:01:00) Calcium Lvl: 8.7 mg/dL Low (05/16/24 06:01:00) Allergies No Known Allergies Problems Ongoing - Any problem that you are currently receiving treatment for. BPH with urinary obstruction Dehydration Elevated PSA Family history of prostate cancer Frequent urination GERD (gastroesophageal reflux disease) HTN (hypertension) Hx of chcf use of blood thinners Hyperlipidemia Nocturia Post-void dribbling Smoker Solar keratosis SVT (supraventricular tachycardia) Urinary tract infection Historical - Any problem that you are no longer receiving treatment for. Congenital adrenal hyperplasia HTN - Hypertension Personal history of prostate cancer Umbilical hernia Education Materials Transient Ischemic Attack A transient ischemic attack (TIA) happens when blood supply to the brain is blocked temporarily. A TIA causes stroke-like symptoms (more content not included)... Normal [facility] HEMATOLOGYOrdered By: SYSTEM SYSTEM on 05-16-2024 Basophils/100 WBC (Bld) 0.2 % Normal 0.0 - 2.0 % Remisol Heme Basophils/Leukocytes Auto (Bld) [Pure # fraction] 0.0 E9/L Normal 0.0 - 0.2 E9/L Remisol Heme Eosinophils (Bld) [#/Vol] 0.0 E9/L Normal 0.0 - 0.5 E9/L Remisol Heme Eosinophils/100 WBC (Bld) 0.2 % Normal 0.0 - 8.0 % Remisol Heme Erythrocyte distribution width (RBC) [Ratio] 14.8 % High 10.9 - 14.2 % Remisol Heme Hematocrit (Bld) [Volume fraction] 38.5 % Normal 37.7 - 49.0 % Remisol Heme Hemoglobin (Bld) [Mass/Vol] 13.1 g/dL Low 13.5 - 17.5 gm/dL Remisol Heme Lymphocytes (Bld) [#/Vol] 2.0 E9/L Normal 1.0 - 4.0 E9/L Remisol Heme Lymphocytes/100 WBC (Bld) 35.7 % Normal 14.0 - 50.0 % Remisol Heme MCH (RBC) [Entitic mass] 34.8 pg High 27.0 - 34.0 pg Remisol Heme MCHC (RBC) [Mass/Vol] 34.0 g/dL Normal 31.4 - 36.0 gm/dL Remisol Heme MCV (RBC) [Entitic vol] 102.4 fL High 80.0 - 100.0 fL Remisol Heme Monocytes (Bld) [#/Vol] 1.0 E9/L Normal 0.2 - 1.0 E9/L Remisol Heme Monocytes/100 WBC (Bld) 17.9 % High 4.0 - 14.0 % Remisol Heme Neutrophils (Bld) [#/Vol] 2.6 E9/L Normal 2.0 - 7.5 E9/L Remisol Heme Neutrophils/100 WBC (Bld) 46.0 % Normal 36.0 - 75.0 % Remisol Heme Platelet mean volume (Bld) [Entitic vol] 10.5 fL Normal 6.4 - 10.8 fL Remisol Heme Platelets (Bld) [#/Vol] 97.0 E9/L Low 150.0 - 500.0 E9/L Remisol Heme RBC (Bld) [#/Vol] 3.8 E12/L Low 4.3 - 5.9 E12/L Remisol Heme WBC corrected for nucl RBC Auto (Bld) [#/Vol] 5.6 E9/L Normal 4.0 - 11.0 E9/L Remisol Heme [id number] 05-16-2024 HbA1c (Bld) [Mass fraction] 5.1 % Normal <=5.9 [facility] Comment on above: Performed By: #### 7 [id number] #### [facility] [address] [place] [address] Inpatient Clinical Summaryon 05-16-2024 Inpatient Clinical Summary Inpatient Clinical Summary [facility] [address] [place], [place] [address] Clinical Summary Person Information: Name: NORY DSOUZA Age: 69 Years : 1955 Sex: Male PCP: DOUG ARTEAGA MD Marital Status: Phone: Race: White Ethnicity: Non- or Language: Beninese Visit Id: Visit Reason: Weakness or fatigue; Paresthesia; LEFT SIDE TIGGLING Speciality: Acuity: Enc Type: Observation Med Service: Medical Arrival: 05/15/2024 14:52:20 Discharge: Dispo Type: Admitted as IP to this Hosp Address: [address] [place] [id number] Provider Notes: Diagnosis: 2:Hyperlipidemia; 3:HTN (hypertension); 4:GERD (gastroesophageal reflux disease); 5:Smoker Problems Active GERD (gastroesophageal reflux disease) HTN (hypertension) Dehydration SVT (supraventricular tachycardia) Family history of prostate cancer Post-void dribbling Nocturia Smoker Urinary tract infection Frequent urination Hyperlipidemia Solar keratosis Hx of chcf use of blood thinners Elevated PSA BPH with urinary obstruction Smoking Status: Current Every Day Smoker Functional Status: Sensory Deficits: History of Falls: Immediately prior to hospitalization Mobility Assistance Prior to Admission: Partial assistance ADLs: Minimal assistance Current Level of Assistance for Self-Care/Mobility: Cognitive Status: Oriented x 3 Allergies No Known Allergies Measurements: Height: 167.64 cm Weight: 107.8 kg Blood Pressure: 134 mmHg / 87 mmHg BMI: 39.21 kg/m2 Procedures No Procedures Documented Immunizations No Immunizations Documented This Visit Final Med List: aspirin (aspirin 81 mg Oral EC Tab) 1 Tablets By Mouth every day. Refills: 0. atorvastatin (atorvastatin 40 mg Tab) 1 Tablets By Mouth every day. Refills: 0. diltiazem (DilTIAZem (Eqv-Cardizem CD) 120 mg/24 hours oral capsule, extended release) lansoprazole (Prevacid 30 mg Cap-EC) 1 Capsules By Mouth every day. Take one capsule by mouth every day. metoprolol (Lopressor 25 mg oral tablet) Care Team Members: Attending Physician: INES FISCHER, [facility] Consulting Physician: Samantha Mccoy MD; Bita FISCHER, Hiram Kraft Referring Physician: Follow up: With: Address: When: DOUG ARNOL [address] [place] [id number] [facility] (1) Within 5 to 7 days Comments: Office was closed for lunch. Patient needs to call to make hospital follow up appointment. With: Address: When: Samantha Mccoy [facility] [address] Within 2 to 4 weeks Patient Education Information: Normal [facility] Inpatient Patient Summaryon 05-16-2024 Inpatient Patient Summary Inpatient Patient Summary [address] [address] Patient Discharge Instructions PERSON INFORMATION Name: NORY DSOUZA Date of : 1955 Current Date: 05/16/2024 12:13:38 PHYSICIANS Admitting Physician: Zunilda CHACON MD Primary Care Physician: DOUG ARTEAGA MD PCP Comment: Discharge Diagnosis: 2:Hyperlipidemia; 3:HTN (hypertension); 4:GERD (gastroesophageal reflux disease); 5:Smoker Condition at Discharge: Improved NORY DSOUZA has been given the following list of follow-up instructions, prescriptions, and patient education materials: PATIENT FOLLOW-UP INFORMATION Diet: Fat Modified- Low cholesterol Discharge Activity: Ambulate as tolerated Discharge Restrictions: No restrictions Wound Care Instructions: Remove Your Dressing In Days Call Your Doctor For: IF UNABLE TO CONTACT YOUR PHYSICIAN AND YOU FEEL IT IS AN EMERGENCY, GO TO THE NEAREST EMERGENCY ROOM OR CALL 911 Home Treatment: Devices/Equipment: Cane Special Services: Additional Instructions: - Complete smoking cessation strongly advised Primary Care Physician to provide the following pending test results: None Follow up: With: Address: When: DOUG ARTEAGA [address] [place] [address] Business (1) Within 5 to 7 days Comments: Office was closed for lunch. Patient needs to call to make hospital follow up appointment. With: Address: When: Darius FISCHER, SIERRA Ayala [address] [address] Within 2 to 4 weeks In the event that this physician does not participate in your insurance network, please consult with your insurance company to find a nearby participating provider. Comment: IMEET MICHAEL T, have received the attached patient education materials/instructio ns and have verbalized understanding: Patient Signature Date Clinican/Nurse Signature Date HERE ARE THE MEDICATION CHANGES THAT OCCURRED DURING YOUR HOSPITAL STAY New Medications [id number], [address] [facility] [place] [id number], [phone] atorvastatin (atorvastatin 40 mg Tab) 1 Tablets By Mouth every day. Refills: 0. Last Dose: Next Dose: Other Medications aspirin (aspirin 81 mg Oral EC Tab) 1 Tablets By Mouth every day. Refills: 0. Last Dose: Next Dose: Medications to Continue with No Changes Other Medications diltiazem (DilTIAZem (Eqv-Cardizem CD) 120 mg/24 hours oral capsule, extended release) Last Dose: Next Dose: lansoprazole (Prevacid 30 mg Cap-EC) 1 Capsules By Mouth every day. Take one capsule by mouth every day. Last Dose: Next Dose: metoprolol (Lopressor 25 mg oral tablet) Last Dose: Next Dose: No Longer Take the Following Medications dexamethasone (dexamethasone 0.5 mg oral tablet) 1 Tablets By Mouth every day. pravastatin (pravastatin 40 mg Tab) 1 Tablets By Mouth at bedtime. Comment: MEDICATION LIST PROVIDED FOR YOU IS A LIST OF YOUR CURRENT MEDICATIONS. PLEASE CARRY THIS WITH YOU AT ALL TIMES. aspirin (aspirin 81 mg Oral EC Tab) 1 Tablets By Mouth every day. Refills: 0. atorvastatin (atorvastatin 40 mg Tab) 1 Tablets By Mouth every day. Refills: 0. diltiazem (DilTIAZem (Eqv-Cardizem CD) 120 mg/24 hours oral capsule, extended release) lansoprazole (Prevacid 30 mg Cap-EC) 1 Capsules By Mouth every day. Take one capsule by mouth every day. metoprolol (Lopressor 25 mg oral tablet) Pharmacy Information: Other: Bertha Zuñiga Comment: PATIENT EDUCATION INFORMATION Instructions: Medication Leaflets: You may receive a survey from [employer] asking you to rate your care experience. Your feedback is important and will help us understand what we do well and how we can improve the quality of care we provide to you, your loved ones and our community. It???s an honor to serve you. Thank you for choosing [facility] Interdisciplinary Note - Junaid e Manageron 05-16-2024 Interdisciplinary Note - Management Trainer Interdisciplinary Note - Management Trainer This SW rounded with patient today. He is aware that pending CTA results, he may be ready for d/c today. PT recommended use of FWW and OP PT if patient is wanting to progress to walking without the FWW. Patient has a FWW already. He denies wanting OP PT at this time as he is wanting to follow up with his PCP before considering this. Patient denies any needs and does not wish to have Paramedicine. Family will transport him at d/c. [facility] Comment on above: Result Comment: Elec tronically Signed By: Lori MONTERO, Sanaz Collins.br\Date and Time Signed: 05/16/24 11:16 EST Interdisciplinary Note - Denisse n 05-16-2024 Interdisciplinary Note - OT Interdisciplinary Note - OT OT [facility] six clicks score 23/ = no further OT needs. Patient is modified Ind w/ basic adls and transfers in room and declines further OT needs. DC inpatient OT services. Normal [facility] Lipid Panelon 05-16-2024 Cholesterol [Mass/Vol] 122 mg/dL Normal 120-200 [facility] Comment on above: Performed By: #### 2 [id number] #### [facility] [address] [place] [address] Cholesterol in HDL [Mass/Vol] 46 mg/dL Invalid Interpretation Code [facility] Comment on above: Result Comment: '>= 60 LOW RISK' '<= 40 HIGH RISK' Performed By: #### 2 [id number] #### [facility] [address] [place] [address] Cholesterol in LDL [Mass/Vol] 70 mg/dL Normal <=129 [facility] Comment on above: Performed By: #### 2 [id number] #### [facility] [address] [place] [address] Cholesterol in VLDL [Mass/Vol] 14 mg/dL Normal 7-40 [facility] Comment on above: Performed By: #### 2 [id number] #### [facility] [address] [place] [address] Triglyceride [Mass/Vol] 71 mg/dL Normal <=149 [facility] Comment on above: Performed By: #### 2 [id number] #### [facility] [address] [place] [address] eGFRon 05-16-2024 eGFR 95 mL/min/1.73 m2 Normal >=59 [facility] Comment on above: Performed By: #### 1 [id number] #### [facility] [address] [place] [address] BB Draw & Holdon 05-15-2024 BB D&H Sample drawn for Blood Ba Normal [facility] Comment on above: Performed By: #### 1 [id number] #### [facility] [address] [place] [address] CBC w/ Auto Diffon 4 Basophils/100 WBC (Bld) 0.5 % Normal 0.0-2.0 [facility] Comment on above: Performed By: #### 2 [id number] #### [facility] [address] [place] [address] Basophils/Leukocytes Auto (Bld) [Pure # fraction] 0.0 E9/L Normal 0.0-0.2 [facility] Comment on above: Performed By: #### 2 [id number] #### [facility] [address] [place] [address] Eosinophils (Bld) [#/Vol] 0.0 E9/L Normal 0.0-0.5 [facility] Comment on above: Performed By: #### 2 [id number] #### [facility] [address] [place] [address] Eosinophils/100 WBC (Bld) 0.3 % Normal 0.0-8.0 [facility] Comment on above: Performed By: #### 2 [id number] #### [facility] [address] [place] [address] Erythrocyte distribution width (RBC) [Ratio] 14.8 % High 10.9-14.2 [facility] Comment on above: Performed By: #### 2 [id number] #### [facility] [address] [place] [address] Hematocrit (Bld) [Volume fraction] 39.4 % Normal 37.7-49.0 [facility] Comment on above: Performed By: #### 2 [id number] #### [facility] [address] [place] [address] Hemoglobin (Bld) [Mass/Vol] 13.3 g/dL Low 13.5-17.5 [facility] Comment on above: Performed By: #### 2 [id number] #### [facility] [address] [place] [address] Lymphocytes (Bld) [#/Vol] 1.5 E9/L Normal 1.0-4.0 [facility] Comment on above: Performed By: #### 2 [id number] #### [facility] [address] [place] [address] Lymphocytes/100 WBC (Bld) 29.8 % Normal 14.0-50.0 [facility] Comment on above: Performed By: #### 2 [id number] #### [facility] [address] [place] [address] MCH (RBC) [Entitic mass] 34.7 pg High 27.0-34.0 [facility] Comment on above: Performed By: #### 2 [id number] #### [facility] [address] [place] [address] MCHC (RBC) [Mass/Vol] 33.7 g/dL Normal 31.4-36.0 [facility] Comment on above: Performed By: #### 2 [id number] #### [facility] [address] [place] [address] MCV (RBC) [Entitic vol] 103.0 fL High 80.0-100.0 [facility] Comment on above: Performed By: #### 2 230237 #### [facility] [address] [place] [address] Monocytes (Bld) [#/Vol] 0.8 E9/L Normal 0.2-1.0 [facility] Comment on above: Performed By: #### 2 [id number] #### [facility] [address] [place] [address] Neutrophils (Bld) [#/Vol] 2.7 E9/L Normal 2.0-7.5 [facility] Comment on above: Performed By: #### 2 074151 #### [facility] [address] [place] [address] Neutrophils/100 WBC (Bld) 52.8 % Normal 36.0-75.0 [facility] Comment on above: Performed By: #### 2 [id number] #### [facility] [address] [place] [address] Platelet mean volume (Bld) [Entitic vol] 10.5 fL Normal 6.4-10.8 [facility] Comment on above: Performed By: #### 2 [id number] #### [facility] [address] [place] [address] Platelets (Bld) [#/Vol] 94.0 E9/L Low 150.0-500.0 [facility] Comment on above: Performed By: #### 2 [id number] #### [facility] [address] [place] [address] RBC (Bld) [#/Vol] 3.8 E12/L Low 4.3-5.9 [facility] Comment on above: Performed By: #### 2 [id number] #### [facility] [address] [place] [address] WBC corrected for nucl RBC Auto (Bld) [#/Vol] 5.1 E9/L Normal 4.0-11.0 [facility] Comment on above: Performed By: #### 2 [id number] #### [facility] [address] [place] [address] CHEMISTRYOrdered By: Lab ROP User on 05-15-2024 Glucose [Mass/Vol] 79 mg/dL Normal 55 - 99 mg/dL [facility] POC Subsection POC Device SN [id number] Invalid Interpretation Code [facility] POC Subsection POC User ID [id number] 1 Invalid Interpretation Code [facility] POC Subsection POC Username VIN [place] Invalid Interpretation Code [facility] POC Subsection CHEMISTRYOrdered By: SYSTEM SYSTEM on 05-15-2024 Albumin [Mass/Vol] 4.0 g/dL Normal 3.3 - 5.0 gm/dL Remisol Chem Albumin/Globulin [Mass ratio] 1.4 {ratio} Normal 1.1 - 2.2 Remisol Chem ALP [Catalytic activity/Vol] 62 [iU]/d Normal 21 - 98 Int._Unit/L Remisol Chem ALT No additional P-5'-P [Catalytic activity/Vol] 10 [iU]/d Normal 6 - 46 Int._Unit/L Remisol Chem Anion gap [Moles/Vol] 8 mmol/L Normal 6 - 16 mEq/L R emisol Chem AST [Catalytic activity/Vol] 17 [iU]/d Normal 5 - 43 Int._Unit/L Remisol Chem Bilirubin [Mass/Vol] 0.9 mg/dL Normal 0.0 - 1 .1 mg/dL Rem[facility] Chem Calcium [Mass/Vol] 8.7 mg/dL Low 8.9 - 11. 1 mg/dL [facility] Chem Chloride [Moles/Vol] 105 mmol/L Normal 101 - 1 11 mmol/L Rem[facility] Chem CO2 [Moles/Vol] 29 mmol/L Normal 21 - 31 mmol/L [facility] Chem Creatinine [Mass/Vol] 0.9 mg/dL Normal 0.5 - 1.3 mg/dL Rem[facility] Chem eGFR 91 mL/min/1.73 m2 Normal >=59mL/min /1 .73 m2 Rem[facility] Chem Globulin (S) [Mass/Vol] 2.8 g/dL Normal 1.4 - 4.0 gm/dL Rem[facility] Chem Glucose [Mass/Vol] 89 mg/dL Normal 55 - 199 mg/dL [facility] Chem Potassium [Moles/Vol] 4.3 mmol/L Normal 3.5 - 5.3 mmol/L Remisol Chem Protein [Mass/Vol] 6.8 g/dL Normal 6.0 - 7.8 gm/dL Rem[facility] Chem Sodium [Moles/Vol] 138 mmol/L Normal 135 - 145 mmol/L Remisol Chem Troponin HS 5.80 pg/mL Low 15.90 - 38.40 pg/mL [facility] Comment on above: Interpretive Data: T he 95% CI (Confidence Interval) PPV (Positive Predictive Value) for myocardial infarction in females is 38 pg/mL, in males 51 pg/mL. The results should be used in conjunction with clinical conditions of myocardial infarction. (Access High Sensitivity Troponin I Instructions For Use, [facility], December 2017) Urea nitrogen [Mass/Vol] 17 mg/dL Normal 5 - 21 mg/dL Rem[facility] Chem Urea nitrogen/Creatinine [Mass ratio] 19 mg/mg Normal 10 - 20 Rem[facility] Chem CMPon 05-15-2024 Albumin [Mass/Vol] 4.0 g/dL Normal 3.3-5.0 [facility] Comment on above: Performed By: #### 2 [id number] #### [facility] [address] [place] [address] Albumin/Globulin (S) [Mass conc ratio] 1.4 Normal 1.1-2.2 [facility] Comment on above: Performed By: #### 2 [id number] #### [facility] [address] [place] [address] ALP [Catalytic activity/Vol] 62 Int._Unit/L Normal 21-98 [facility] Comment on above: Performed By: #### 2 [id number] #### [facility] [address] [place] [address] ALT No additional P-5'-P [Catalytic activity/Vol] 10 Int._Unit/L Normal 6-46 [facility] Comment on above: Performed By: #### 2 [id number] #### [facility] [address] [place] [address] Anion gap [Moles/Vol] 8 mmol/L Normal 6-16 [facility] Comment on above: Performed By: #### 2 [id number] #### [facility] [address] [place] [address] AST [Catalytic activity/Vol] 17 Int._Unit/L Normal 5-43 [facility] Comment on above: Performed By: #### 2 [id number] #### [facility] [address] [place] [address] Bilirubin [Mass/Vol] 0.9 mg/dL Normal 0.0-1.1 [facility] Comment on above: Performed By: #### 2 [id number] #### [facility] [address] [place] [address] Calcium [Mass/Vol] 8.7 mg/dL Low 8.9-11.1 [facility] Comment on above: Performed By: #### 2 [id number] #### [facility] [address] [place] [address] Chloride [Moles/Vol] 105 mmol/L Normal 101-111 [facility] Comment on above: Performed By: #### 2 [id number] #### [facility] [address] [place] [address] CO2 [Moles/Vol] 29 mmol/L Normal 21-31 [facility] Comment on above: Performed By: #### 2 [id number] #### [facility] [address] [place] [address] Creatinine [Mass/Vol] 0.9 mg/dL Normal 0.5-1.3 [facility] Comment on above: Performed By: #### 2 [id number] #### [facility] [address] [place] [address] Globulin (S) [Mass/Vol] 2.8 g/dL Normal 1.4-4.0 [facility] Comment on above: Performed By: #### 2 601796 #### [facility] [address] [place] [address] Glucose [Mass/Vol] 89 mg/dL Normal 55-199 [facility] Comment on above: Performed By: #### 2 238892 #### [facility] [address] [place] [address] Potassium [Moles/Vol] 4.3 mmol/L Normal 3.5-5.3 [facility] Comment on above: Performed By: #### 2 [id number] #### [facility] [address] [place] [address] Protein [Mass/Vol] 6.8 g/dL Normal 6.0-7.8 [facility] Comment on above: Performed By: #### 2 [id number] #### [facility] [address] [place] [address] Sodium [Moles/Vol] 138 mmol/L Normal 135-145 [facility] Comment on above: Performed By: #### 2 [id number] #### [facility] [address] [place] [address] Urea nitrogen [Mass/Vol] 17 mg/dL Normal 5-21 [facility] Comment on above: Performed By: #### 2 [id number] #### [facility] [address] [place] [address] Urea nitrogen/Creatinine [Mass ratio] 19 No Units Normal 10-20 [facility] Comment on above: Performed By: #### 2 [id number] #### [facility] [address] [place] [address] COAGULATIONOrdered By: Lois Sanford on 05-15-2024 aPTT Coag (PPP) [Time] 29.6 s Normal 25.1 - 36.5 second(s) [facility] Comment on above: Interpretive Data: P arameter 15 days - 4 weeks 1 - [...] the same coagulation reagent and instrumentation as [facility]. Currently there are no coagulation studies available worldwide for children to 14 days, and no normal ranges. Heparin therapeutic range (represented by Anti-Factor Xa activity of 0.2 - 0.4 U/mL) corresponds to PTT of 56.6 - 109.0 sec. INR Coag (PPP) [Relative time] 1.08 {INR} Invalid Interpretation Code [facility] [place] [facility] Auto Coag Comment on above: Interpretive Data: I NR results are specifically intended to assess patients stabilized on long-term Anticoagulation therapy suggested INR s Less Intensive Anticoagulation 2.0 3.0 Conventional Range 3.0 4.5 PT Coag (PPP) [Time] 12.1 s Normal 9.4 - 1 2.5 second(s) [facility] [place] [facility] Auto Coag Comment on above: Interpretive Data: 1 5 days - 4 weeks 1 - 5 months 6 -11 months 1 5 years 6 10 years 11 -17 years Mean: 11.2 (9.5 12.6) Mean: 11.0 (9.7 12.8) Mean: 11.0 (9.8 13.0) Mean: 11.3 (9.9 13.4) Mean: 11.7 (10.0 14.6) Mean: 11.8 (10.0 - 14.1) Pediatric Reference ranges were obtained from a study by johny Alarcon al. prepared from 1437 samples obtained at 7 different centers using the same coagulation reagent and instrumentation as [facility] [place] [facility]. Currently there are no coagulation studies available worldwide for children to 14 days, and no normal ranges. CT Head or Brain w/o Contras ton 05-15-2024 CT Head or Brain w/o Contrast Exam Date/Time: 05/15/2024 15:13 EST Reason for Exam: Neuro deficit, acute, stroke suspected;Stroke Report IMPRESSION: NO ACUTE INTRACRANIAL PROCESS IDENTIFIED. EXAM: CT Head or Brain w/o Contrast DATE: 05/15/2024 3:10 PM CLINICAL HISTORY: Stroke, Neuro deficit, acute, stroke suspected. COMPARISON: None available. TECHNIQUE: Routine. All CT scans at this facility use dose modulation, iterative reconstruction, and/or weight based dosing when appropriate to reduce radiation dose to as low as reasonably achievable. FINDINGS: There is no intracranial hemorrhage, mass effect, midline shift, extra-axial collection, evidence of hydrocephalus, skull fracture, or a recent ischemic infarct identified. Mild generalized cerebral volume loss is present, with mild patchy supratentorial white matter changes most consistent with chronic small vessel ischemic disease. The mastoid air cells and visualized paranasal sinuses are essentially clear. Moderate debris is noted in both external auditory canals. Ordering Provider: Robson Cartwright FINAL REPORT Dictated: 05/15/2024 3:18 pm Carson Raza MD Signed (Electronic Signature): 05/15/2024 3:18 pm Signed by: Carson Raza MD Transcribed by: BALDOMERO Technologist: MEAGHAN Lang Read 05/15/2024 03:16 pm EST, Carson Raza MD CT Brain: No acute intra or extra axial findings. Normal [facility] Capillary Glucose POCon - Glucose [Mass/Vol] 79 mg/dL Normal 55-99 [facility] Comment on above: Performed By: #### 2 [id number] #### [facility] [address] [place] [address] ED Clinical Summaryon 2023 ED Clinical Summary ED Clinical Summary [address] [address] ED Clinical Summary Person Information Name: NORY DSOUZA [place] Age: 69 Years : 1955 Sex: Male Language: Beninese PCP: DOUG ARTEAGA MD Marital Status: Phone: Visit Id: Visit Reason: Weakness or fatigue; Paresthesia; LEFT SIDE TIGGLING Speciality: Acuity: 2 Enc Type: Observation Med Service: Medical Arrival: 05/15/2024 14:52:20 Discharge: LOS: 000 03:01 Checkin: 05/15/2024 14:52:20 Checkout: 05/15/2024 17:53:33 Dispo Type: Admitted as IP to this [facility] EVENTS: Event Name Event Status Request Date/Time Start Date/Time Complete Date/Time Arrive Complete 05/15/2024 14:52:20 05/15/2024 14:52:20 05/15/2024 14:52:20 Document Home Meds Request 05/15/2024 14:52:20 Triage Complete 05/15/2024 14:52:20 05/15/2024 15:01:29 05/15/2024 15:01:29 Bed Assign Complete 05/15/2024 14:54:50 05/15/2024 14:54:50 05/15/2024 14:54:50 Dr Exam Complete 05/15/2024 14:54:50 05/15/2024 15:00:37 05/15/2024 15:00:37 RN Exam Complete 05/15/2024 14:54:50 05/15/2024 15:17:09 05/15/2024 15:17:09 RR Stroke Request 05/15/2024 14:59:00 EKG Complete 05/15/2024 15:00:23 05/15/2024 15:20:29 Registration Complete 05/15/2024 15:00:37 05/15/2024 15:21:53 05/15/2024 15:21:53 NPO Request 05/15/2024 15:03:56 Pending Labs Complete 05/15/2024 15:03:56 05/15/2024 16:55:33 Blood Collect Request 05/15/2024 15:03:56 Lab Complete 05/15/2024 15:03:56 05/15/2024 15:36:59 Patient Care Request 05/15/2024 15:03:56 CT Complete 05/15/2024 15:03:56 05/15/2024 15:10:03 05/15/2024 15:13:06 X-Ray Complete 05/15/2024 15:03:56 05/15/2024 15:40:36 05/15/2024 15:52:48 RT Request 05/15/2024 15:03:56 Patient Care Request 05/15/2024 15:04:51 Pending Labs Complete 05/15/2024 15:10:43 05/15/2024 15:10:43 05/15/2024 15:36:59 Lab Complete 05/15/2024 15:10:43 05/15/2024 15:10:43 05/15/2024 15:36:59 Pending Labs Complete 05/15/2024 15:15:52 05/15/2024 15:15:52 05/15/2024 15:15:52 Fall Risk Request 05/15/2024 15:17:09 RR Stroke Request 05/15/2024 15:17:09 Reg Complete Request 05/15/2024 15:21:53 Reg Bed Request Complete 05/15/2024 15:21:53 05/15/2024 15:21:53 05/15/2024 15:21:53 Pending Labs Complete 05/15/2024 15:48:00 05/15/2024 15:48:00 05/15/2024 15:48:01 Wet Read Complete 05/15/2024 15:52:48 05/15/2024 15:59:36 05/15/2024 15:59:36 Consult Request 05/15/2024 16:10:21 Hospitalist Consult Request 05/15/2024 16:10:21 Observation Request 05/15/2024 16:10:45 Patient Care Request 05/15/2024 16:10:47 Patient Care Request 05/15/2024 16:10:47 Medicare Form Complete 05/15/2024 16:10:48 05/15/2024 16:48:04 Patient Care Request 05/15/2024 16:10:48 Patient Care Request 05/15/2024 16:10:48 Patient Care Request 05/15/2024 17:04:01 Pending Labs Request 05/15/2024 17:04:01 Lab Request 05/15/2024 17:04:01 Meds Admin Request 05/15/2024 17:04:01 Consult Request 05/15/2024 17:04:01 MRI Request 05/15/2024 17:04:01 Echo Request 05/15/2024 17:06:22 Meds Admin Request 05/15/2024 17:44:18 Patient Care Request 05/15/2024 17:44:18 Patient Care Request 05/15/2024 17:44:44 Inpatient Bed Ready Complete 05/15/2024 17:53:33 05/15/2024 17:53:33 05/15/2024 17:53:33 ADDRESS: [address] [place] [address] [id number] PHYS DOC NOTES: MEDICAL INFORMATION: Prescriptions Given: [...] Mouth at bedtime. PATIENT EDUCATION INFORMATION: Instructions: Follow up: DIAGNOSIS: 2:Hyperlipidemia; 3:HTN (hypertension); 4:GERD (gastroesophageal reflux disease); 5:Smoker Normal [facility] ED Note-Physicianon 05-15-20 ED Note-Physician ED Note-Physician Basic Information Time Seen: Robson Cartwright DO 05/15/2024 15:00 Chief Complaint pt reports left sided weakness, numbness, and tingling around 1200 today. s/s have since resolved. denies blurry vision, speech changes, YOUNGER. hx of HTN, HLD. No thinners. Fell on tuesday but denies head injury or LOC. History of Present Illness 69 male presents emergency department with left-sided numbness and weakness. Last known well was approximately 12:00 today just prior to arrival which is also symptom onset time. Patient states that he developed some numbness and weakness to his left arm and left leg which has since resolved by the time he comes to the emergency department. Patient does have history of hypertension and high cholesterol denies any history of stroke or diabetes denies any blood thinning medications. He denies any changes to his speech or vision when this occurred. He is never had this before and denies any pain no headache no chest pain. No other aggravating or relieving factors no other associated symptoms no other prior treatments or complaints. Family: Reviewed and noncontributory Social: lives at home Review of systems negative unless otherwise specified in the HPI. Physical Exam Vitals & Measurements T: 36.6 ???C(Oral) HR: 79(Peripheral) RR: 16 BP: 159/87 SpO2: 97% HT: 168 cm WT: 109.6 kg BMI: 38.83 General: The patient appears well and in no apparent distress. Patient is resting comfortably on cart. Skin: Warm, dry, no pallor noted. Head: Normocephalic, atraumatic Neck: No JVD Eye: PERRLA, EOMI ENT: Moist mucus membranes Cardiovascular: Regular rate normal peripheral perfusion Respiratory: No respiratory distress no accessory muscle use no obvious audible wheezing Chest Wall: no deformity Musculoskeletal: normal ROM, no deformity, no swelling GI: Soft no obvious distention. No rebound or rigidity. No guarding. No tenderness. Neurological: A&O moves all extremities equal strength and symmetry stroke scale score is only 1 for slight tongue deviation to the right. There is no dysarthria no aphasia no obvious focal neurological deficits otherwise Psychiatric: Cooperative and appropriate Procedure Patient is not a candidate for tenecteplase given stroke scale score of 0 or 1 with minor nondisabling symptoms Medical Decision Making Workup here is essentially benign. Case discussed with the hospitalist patient be admitted for additional evaluation and treatment for concerns for TIA. Assessment/Plan Brain TIA, (G45.9: Transient cerebral ischemic attack, unspecified)TIA (transient ischemic attack) Orders: BB Draw & Hold Cardiac Monitoring CBC w/ Auto Diff Communication Order Communication Order Comprehensive Metabolic Panel Continuous Pulse Oximetry CT Head or Brain w/o Contrast Dysphagia Screen ED Physician consult Hospitalist for continued care eGFR Extra Horn Tube NIH Stroke Scale NPO Diet Oxygen Protocol PT & PTT Rapid Response Form Routine Capillary Glucose POC Stroke Quality Measures Troponin 0 Hr. 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 Cigarettes, 05/08/2019 Family History Prostate cancer: Father. Lab Results WBC: 5.1 E9/L (05/15/24 15:01:00) RBC: 3.8 E12/L Low (05/15/24 15:01:00) HGB (more content not included)... Normal [facility] Comment on above: Result Comment: Elec tronically Signed By: Robson Cartwright DO\.br\Date and Time Signed: 05/15/24 16:11 EST ED Patient Education Noteon 05-15-2024 ED Patient Education Note ED Patient Education Note Normal [facility] ED Patient Summaryon 024 ED Patient Summary ED Patient Summary [place] [address] Patient Discharge Instructions Person Information Name: NORY DSOUZA Age: 69 Years Arrival Date: 05/15/2024 14:52:20 Discharge Diagnosis: 2:Hyperlipidemia; 3:HTN (hypertension); 4:GERD (gastroesophageal reflux disease); 5:Smoker Primary Care Physician: DOUG ARTEAGA MD Provider Information Primary Provider: Robson Cartwright DO Advanced Contact Center Manager:None The exam and treatment you received in the Emergency Department were for an urgent problem and are not intended as complete care. It is important that you follow up with a doctor, nurse practitioner, or physician???s itinerant teacher assistant for ongoing care. If your symptoms become worse or you do not improve as expected and you are unable to reach your usual health care provider, you should return to the Emergency Department. We are available 24 hours a day. NORY DSOUZA has been given the following list of patient education materials, prescriptions and follow-up instructions: Follow-up Instructions: In the event that this physician does not participate in your insurance network, please consult with your insurance company to find a nearby participating provider. Patient Education Materials: A MESSAGE TO ALL PATIENTS REGARDING OPIOIDS PRESCRIPTION OPIOIDS: WHAT YOU NEED TO KNOW Prescription opioids can be used to help relieve lmsjbqce-ck-fetfwo pain and are often prescribed following a [...] as well, even when taken as directed: ??? Tolerance???meaning you might need to take more of the medication for the same pain relief ??? Physical dependence???meaning you have symptoms of withdrawal when a medication is stopped ??? Increased sensitivity to pain ??? Constipation ??? Nausea, vomiting, and dry mouth ??? Sleepiness and dizziness ??? Confusion ??? Depression ??? Low levels of testosterone that can result in lower sex drive, energy, and strength ??? Itching and sweating RISKS ARE GREATER WITH: ??? History of drug misuse, substance use disorder, or overdose ??? Mental health conditions (such as depression or anxiety) ??? Sleep apnea ??? Older age (65 years and older) ??? Avoid alcohol while taking prescription opioids. Also, unless specifically advised by your health care provider, medications to avoid include: ??? Benzodiazepines (such as Xanax or Valium) ??? Muscle relaxants (such as Soma or Flexeril) ??? Hypnotics (such as Ambien or Lunesta) ??? Other prescription opioids KNOW YOUR OPTIONS Talk to your health care provider about ways to manage your pain that don???t involve prescription opioids. Some of these options may actually work better and have fewer risks and side effects. Options may include: ??? Pain relievers such as acetaminophen, ibuprofen, and naproxen ??? Some medication that are also used for depression or seizures ??? Physical therapy and exercise ??? Cognitive behavioral therapy, a psychological, goal-directed approach, in which patients learn how to modify physical, behavioral, and emotional triggers of pain and stress. IF YOU ARE PRESCRIBED OPIOIDS FOR PAIN: ??? Never take opioids in greater amounts or more often than prescribed. ??? Follow up with your primary health care provider. o Work together to create a plan on how to manage your pain. o Talk about ways to help manage your pain that don???t involve prescription opioids. o Talk about any and all concerns and side effects. ??? Help prevent misuse and abuse o Never sell or share prescription opioids. o Never use another person???s prescription opioids. ??? Store prescription opioids in a secure place and out of reach of others (this may include visitors, children, friends, and family). ??? Safely dispose of unused prescription opioids: Find your community drug take-back program or your pharmacy mail-back program, or flush them down the toilet, following guidance from the Food and Drug Administration (www.fda.gov/Drugs/R esourcesForYou). ??? Visit www.cdc.gov/drugover dose to learn about the risks of opioids abuse and overdose. ??? If you believe you may be struggling with addiction, tell your health assisted living care manager and ask for guidance or call [facility]???S National Helpline at 2-061-382-VJYW. l Source: [place] (more content not included)... Normal [facility] HEMATOLOGYOrdered By: SYSTEM SYSTEM on 05-15-2024 Basophils/100 WBC (Bld) 0.5 % Normal 0.0 - 2.0 % Remisol Heme Basophils/Leukocytes Auto (Bld) [Pure # fraction] 0.0 E9/L Normal 0.0 - 0.2 E9/L Remisol Heme Eosinophils (Bld) [#/Vol] 0.0 E9/L Normal 0.0 - 0.5 E9/L Remisol Heme Eosinophils/100 WBC (Bld) 0.3 % Normal 0.0 - 8.0 % Remisol Heme Erythrocyte distribution width (RBC) [Ratio] 14.8 % High 10.9 - 14.2 % Remisol Heme Hematocrit (Bld) [Volume fraction] 39.4 % Normal 37.7 - 49.0 % Remisol Heme Hemoglobin (Bld) [Mass/Vol] 13.3 g/dL Low 13.5 - 17.5 gm/dL Remisol Heme Lymphocytes (Bld) [#/Vol] 1.5 E9/L Normal 1.0 - 4.0 E9/L Remisol Heme Lymphocytes/100 WBC (Bld) 29.8 % Normal 14.0 - 50.0 % Remisol Heme MCH (RBC) [Entitic mass] 34.7 pg High 27.0 - 34.0 pg Remisol Heme MCHC (RBC) [Mass/Vol] 33.7 g/dL Normal 31.4 - 36.0 gm/dL Remisol Heme MCV (RBC) [Entitic vol] 103.0 fL High 80.0 - 100.0 fL Remisol Heme Monocytes (Bld) [#/Vol] 0.8 E9/L Normal 0.2 - 1.0 E9/L Remisol Heme Monocytes/100 WBC (Bld) 16.6 % High 4.0 - 14.0 % Remisol Heme Neutrophils (Bld) [#/Vol] 2.7 E9/L Normal 2.0 - 7.5 E9/L Remisol Heme Neutrophils/100 WBC (Bld) 52.8 % Normal 36.0 - 75.0 % Remisol Heme Platelet mean volume (Bld) [Entitic vol] 10.5 fL Normal 6.4 - 10.8 fL Remisol Heme Platelets (Bld) [#/Vol] 94.0 E9/L Low 150.0 - 500.0 E9/L Remisol Heme RBC (Bld) [#/Vol] 3.8 E12/L Low 4.3 - 5.9 E12/L Remisol Heme WBC corrected for nucl RBC Auto (Bld) [#/Vol] 5.1 E9/L Normal 4.0 - 11.0 E9/L Remisol Heme PT & PTTon 05-15-2024 aPTT Coag (PPP) [Time] 29.6 second(s) Normal 25.1-36.5 [facility] Comment on above: Result Comment: Para meter 15 days - 4 weeks 1 - 5 months 6 - 11 months 1 - 5 years 6 - 10 years 11 - 17 years PTT Mean: 35.4 (27.6-45.6) Mean: 33.5 (24.8-40.7) Mean: 32.4 (25.1-40.7) Mean: 31.6 (24.0-39.2) Mean: 31.6 (26.9-38.7) Mean: 31.0 (24.6-38.4) Pediatric Reference ranges were obtained from a study by sanket Alarcon prepared from 1437 samples obtained at 7 different centers using the same coagulation reagent and instrumentation as [facility] [facility]. Currently there are no coagulation studies available worldwide for children to 14 days, and no normal ranges. Heparin therapeutic range (represented by Anti-Factor Xa activity of 0.2 - 0.4 U/mL) corresponds to PTT of 56.6 - 109.0 sec. Performed By: #### 1 [id number] #### [facility] [address] [place] [address] INR Coag (PPP) [Relative time] 1.08 {INR} Invalid Interpretation Code [facility] Comment on above: Result Comment: INR results are specifically intended to assess patients stabilized on long-term Anticoagulation therapy suggested INR???s ???Less Intensive Anticoagulation??? 2.0 ??? 3.0 Conventional Range 3.0 ??? 4.5 Performed By: #### 1 [id number] #### [facility] [address] [place] [address] PT Coag (PPP) [Time] 12.1 second(s) Normal 9.4-12.5 [facility] Comment on above: Result Comment: 15 d ays - 4 weeks 1 - 5 months 6 -11 months 1 ??? 5 years 6 ??? 10 years 11 -17 years Mean: 11.2 (9.5 ??? 12.6) Mean: 11.0 (9.7 ??? 12.8) Mean: 11.0 (9.8 ??? 13.0) Mean: 11.3 (9.9 ??? 13.4) Mean: 11.7 (10.0 ??? 14.6) Mean: 11.8 (10.0 - 14.1) Pediatric Reference ranges were obtained from a study by sanket Alarcon prepared from 1437 samples obtained at 7 different centers using the same coagulation reagent and instrumentation as [facility] [place]. Currently there are no coagulation studies available worldwide for children to 14 days, and no normal ranges. Performed By: #### 1 [id number] #### [facility] [address] [place] [address] Troponin 0 Hr.on 05-15-2024 Troponin HS 5.80 pg/mL Low 15.90-38.40 [facility] Comment on above: Result Comment: The 95% CI (Confidence Interval) PPV (Positive Predictive Value) for myocardial infarction in females is 38 pg/mL, in males 51 pg/mL. The results should be used in conjunction with clinical conditions of myocardial infarction. (Access High Sensitivity Troponin I Instructions For Use, [employer], December 2017) Performed By: #### 1 [id number] #### [facility] [address] [place] [id number] UA with Cult Rflxon 05-15-20 24 Bilirubin Ql (U) Negative Normal Negative [facility] Comment on above: Performed By: #### 4 [id number] #### [facility] [address] [place] [address] Clarity (U) Clear Normal Clear [facility] Comment on above: Performed By: #### 4 [id number] #### [facility] [address] [place] [address] Color (U) Light-Yellow Normal Yellow [facility] Comment on above: Result Comment: Micr oscopic readings are only performed on those samples that meet specific criteria set forth by [facility]. Performed By: #### 4 [id number] #### [facility] [address] [place] [address] Glucose Ql (U) Negative Normal Negative [facility] Comment on above: Performed By: #### 4 [id number] #### [facility] [address] [place] [address] Hemoglobin Auto test strip (U) [Mass/Vol] Trace Abnormal Negative [facility] Comment on above: Performed By: #### 4 [id number] #### [facility] [address] [place] [address] Ketones Auto test strip Ql (U) Negative Normal Negative [facility] Comment on above: Performed By: #### 4 [id number] #### [facility] [address] [place] [address] Leukocyte esterase Auto test strip Ql (U) Negative Normal Negative [facility] Comment on above: Performed By: #### 4 [id number] #### [facility] [address] [place] [address] Nitrite Auto test strip Ql (U) Negative Normal Negative [facility] Comment on above: Performed By: #### 4 [id number] #### [facility] [address] [place] [address] pH (U) 7.0 [pH] Invalid Interpretation Code 5.0-9.0 [facility] Comment on above: Performed By: #### 4 [id number] #### [facility] [address] [place] [address] Protein Ql (U) Negative Normal Negative [facility] Comment on above: Performed By: #### 4 [id number] #### [facility] [address] [place] [address] Specific gravity (U) [Rel density] 1.023 Invalid Interpretation Code 1.005-1.030 [facility] Comment on above: Performed By: #### 4 [id number] #### [facility] [address] [place] [address] Urobilinogen (U) [Mass/Vol] 2 mg/dL Abnormal Negative [facility] Comment on above: Performed By: #### 4 [id number] #### [facility] [address] [place] [address] Type of Urine collection method Clean Catch Normal [facility] Comment on above: Performed By: #### 4 [id number] #### [facility] [address] [place] [id number] URINALYSISOrdered By: SYSTEM SYSTEM on 05-15-2024 Bilirubin Ql (U) Negative Normal Negativemg/ d L [facility] UA Auto SS Clarity (U) Clear (05/15/24 4:46 PM) Normal Clear [facility] UA Auto SS Color (U) Light-Yellow 1 (05/15/24 4:46 PM) Normal Yellow [facility] UA Auto SS Comment on above: Interpretive Data: M icroscopic readings are only performed on those samples that meet specific criteria set forth by [facility]. Glucose Ql (U) Negative Normal Negativemg/d L [facility] UA Auto SS Hemoglobin Auto test strip (U) [Mass/Vol] Trace mg/dL Invalid Interpretation Code Negativemg/d L [facility] UA Auto SS Ketones Auto test strip Ql (U) Negative Normal Negativemg/d L [facility] UA Auto SS Leukocyte esterase Auto test strip Ql (U) Negative Normal NegativeLeu/ uL [facility] UA Auto SS Nitrite Auto test strip Ql (U) Negative Normal Negativemg/d L [facility] UA Auto SS pH (U) 7.0 *NA* (05/15/24 4:46 PM) Invalid Interpretation Code 5.0 - 9.0 [facility] UA Auto SS Protein Ql (U) Negative Normal Negativemg/d L [facility] UA Auto SS Specific gravity (U) [Rel density] 1.023 *NA* (05/15/24 4:46 PM) Invalid Interpretation Code 1.005 - 1.030 [facility] UA Auto SS Urobilinogen (U) [Mass/Vol] 2 mg/dL Invalid Interpretation Code Negativemg/d L [facility] UA Auto SS URINALYSISOrdered By: Robson steele on 05-15-2024 UA Spec Desc Clean Catch (05/15/24 4:46 PM) Normal [facility] UA Auto SS XR Chest Single Viewon 05-15 XR Chest Single View Exam Date/Time: 05/15/2024 15:52 EST Reason for Exam: Chest pain Report IMPRESSION: NO EVIDENCE OF ACTIVE CHEST DISEASE. CLINICAL HISTORY: Chest pain. COMPARISON: 11/27/2022. COMMENT: Portable. The heart is normal in size. There is a moderate-sized hiatal hernia. The mediastinum is otherwise unremarkable. The lungs appear clear. No infiltration nor pleural effusion is evident. There are old healed rib fractures on the left. Ordering Provider: Robson Cartwright FINAL REPORT Dictated: 05/15/2024 4:33 pm Asher Abad M.D. Signed (Electronic Signature): 05/15/2024 4:33 pm Signed by: Asher Abad M.D. Transcribed by: BALDOMERO Technologist: MUKUL Technical Comments Radiation Dose: Kar in mGy = na DAP = na Normal [facility] eGFRon 05-15-2024 eGFR 91 mL/min/1.73 m2 Normal >=59 [facility] Comment on above: Performed By: #### 1 [id number] #### [facility] [address] [place] [address] Brain Natri. Peptideon 03-23 Natriuretic peptide B (Bld) [Mass/Vol] 143 pg/mL Normal <300 [facility] Comment on above: Result Comment: An age-independent cutoff point of 300 pg/ml has a 98% negative predictive value excluding acute heart failure. Performed By: #### B OTHER WOOD PROCESSING MACHINE OPERATOR #### [facility] [address] [place] [address] Chipping Machine Operator: Juanjose Osorio MD Vascular duplex lower extrem ity venous lefton 03-23-2024 Left lower extremity edema without DVT. [facility] EXAM: VAS DUP LOWER EXTREMITY VENOUS [...] left groin. Upper and lower leg edema/cellulitis Audio Engineer Details A raza scale, color Doppler imaging and spectral Doppler analysis ultrasound was performed. During the study longitudinal and transverse views were obtained. Pulsed wave doppler was performed. [facility] Sajan Sanchez Jr., MD - 03/23/2024 EXAM: VAS DUP [...] IMPRESSION: Left lower extremity edema without DVT. [facility] Radiology Study observation (narrative) [facility] Vascular duplex lower extrem ity venous leftOrdered By: Sajan Sanchez on 03-23-2024 [facility] Work Phone: Basic Metabolic Profon 11-15 Anion gap [Moles/Vol] 6 mmol/L Low 9-17 [facility] Comment on above: Performed By: #### B MP #### [facility] [address] [place] [address] Chipping Machine Operator: Juanjose Osorio MD BUN/CRE Ratio 18 Normal 9-20 [facility] Comment on above: Performed By: #### B MP #### [facility] [address] [place] [address] Chipping Machine Operator: Juanjose Osorio MD Calcium [Mass/Vol] 9.3 mg/dL Normal 8.6-10.4 [facility] Comment on above: Performed By: #### B MP #### [facility] [address] [place] [address] Chipping Machine Operator: Juanjose Osorio MD Chloride [Moles/Vol] 103 mmol/L Normal 98-107 [facility] Comment on above: Performed By: #### B MP #### [facility] [address] [place] [address] Chipping Machine Operator: Juanjose Osorio MD CO2 [Moles/Vol] 30 mmol/L Normal 20-31 [facility] Comment on above: Performed By: #### B MP #### [facility] [address] [place] [address] Chipping Machine Operator: Juanjose Osorio MD Creatinine [Mass/Vol] 0.9 mg/dL Normal 0.7-1.2 [facility] Comment on above: Performed By: #### B MP #### [facility] [address] [place], [place] [id number] Chipping Machine Operator: Juanjose Osorio MD GFR/1.73 sq M.predicted among non-blacks MDRD (S/P/Bld) [Vol rate/Area] mL/min/{1.73_m2} Normal >60 [facility] Comment on above: Result Comment: These results [...] secretion. Performed By: #### B MP #### [facility] [address] [place], [place] [id number] Chipping Machine Operator: Juanjose Osorio MD Glucose [Mass/Vol] 88 mg/dL Normal 70-99 [facility] Comment on above: Performed By: #### B MP #### [facility] [address] [place], [place] [id number] Chipping Machine Operator: Juanjose Osorio MD Potassium [Moles/Vol] 4.2 mmol/L Normal 3.7-5.3 [facility] Comment on above: Performed By: #### B MP #### [facility] [address] [place], [place] [id number] Chipping Machine Operator: Juanjose Osorio MD Sodium [Moles/Vol] 139 mmol/L Normal 135-144 [facility] Comment on above: Performed By: #### B MP #### [facility] [address] [place], [place] [id number] Chipping Machine Operator: Juanjose Osorio MD Urea nitrogen [Mass/Vol] 16 mg/dL Normal 8-23 [facility] Comment on above: Performed By: #### B MP #### [facility] [address] [place], [place] [id number] Chipping Machine Operator: Juanjose Osorio MD PSA, Screeningon 11-16-2023 Prostatic Spec. Ag 1.10 ng/mL Normal 0.00-4.00 [facility] Comment on above: Result Comment: The [employer] ECLIA assay is used. Results obtained with different assay methods cannot be used interchangeably. Performed By: #### P SAS #### [facility] [place] [id number] Chipping Machine Operator: Sudhir Cheng MD CT Chest for screeningon Lung RADS 1, negative. Management: Low-dose CT chest one year. [facility] EXAM: CT LUNG SCREENING (INITIAL/ANNUAL) INDICATION: [...] lingula. CORONARY ARTERIES: Coronary calcifications are moderate. [facility] Radiology Study observation (narrative) [facility] CT Chest for screeningOrdere d By: Sajan Sanchez on 11-02-2023 [facility] Work Phone: CT LUNG SCREENING (INITIAL/A NNUAL)on [...] Sanchez Jr., MD 11/02/23 Final result Normal [facility] Vascular AAA screeningon FINDINGS/IMPRESSION: 1. Greatest transverse diameter of the aorta is 2.4 cm. 2. The iliac arteries are normal at 1.2 cm on the right and 1.2 cm on the left. 3. Occasional plaque is identified. 4. No abdominal aortic aneurysm. [facility] EXAM: VAS AAA SCREENING HISTORY: Screening for AAA COMPARISON: 07/12/2014 CT abdomen and pelvis. [facility] Sajan Sanchez Jr., MD - 11/02/2023 EXAM: VAS AAA SCREENING HISTORY: Screening for AAA COMPARISON: 07/12/2014 CT abdomen and pelvis. IMPRESSION: FINDINGS/IMPRESSION: 1. Greatest transverse diameter of the aorta is 2.4 cm. 2. The iliac arteries are normal at 1.2 cm on the right and 1.2 cm on the left. 3. Occasional plaque is identified. 4. No abdominal aortic aneurysm. [facility] Radiology Study observation (narrative) [facility] Vascular AAA screeningOrdere d By: Sajan Sanchez on 11-02-2023 [facility] Work Phone: Basic Metabolic Profon 06-28 Anion gap [Moles/Vol] 9 mmol/L Normal 9-17 [facility] Comment on above: Performed By: #### B MP #### [facility] [address] [place] [address] Chipping Machine Operator: Juanjose Osorio MD BUN/CRE Ratio 23 High 9-20 [facility] Comment on above: Performed By: #### B MP #### [facility] [address] [place], [place] [id number] Chipping Machine Operator: Juanjose Osorio MD Calcium [Mass/Vol] 8.7 mg/dL Normal 8.6-10.4 [facility] Comment on above: Performed By: #### B MP #### [facility] [address] [place], [place] [id number] Chipping Machine Operator: Juanjose Osorio MD Chloride [Moles/Vol] 102 mmol/L Normal 98-107 [facility] Comment on above: Performed By: #### B MP #### [facility] [address] [place], [place] [id number] Chipping Machine Operator: Juanjose Osorio MD CO2 [Moles/Vol] 26 mmol/L Normal 20-31 [facility] Comment on above: Performed By: #### B MP #### [facility] [address] [place] [address] Chipping Machine Operator: Juanjose Osorio MD Creatinine [Mass/Vol] 0.7 mg/dL Normal 0.7-1.2 [facility] Comment on above: Performed By: #### B MP #### [facility] [address] [place], [place] [id number] Chipping Machine Operator: Juanjose Osorio MD GFR/1.73 sq M.predicted among non-blacks MDRD (S/P/Bld) [Vol rate/Area] mL/min/{1.73_m2} Normal >60 [facility] Comment on above: Result Comment: These results [...] secretion. Performed By: #### B MP #### [facility] [address] [place], [place] [id number] Chipping Machine Operator: Juanjose Osorio MD Glucose [Mass/Vol] 91 mg/dL Normal 70-99 [facility] Comment on above: Performed By: #### B MP #### [facility] [address] [place], [place] [id number] Chipping Machine Operator: Juanjose Osorio MD Potassium [Moles/Vol] 4.4 mmol/L Normal 3.7-5.3 [facility] Comment on above: Performed By: #### B MP #### [facility] [address] [place], [place] [id number] Chipping Machine Operator: Juanjose Osorio MD Sodium [Moles/Vol] 137 mmol/L Normal 135-144 [facility] Comment on above: Performed By: #### B MP #### [facility] [address] [place], [place] [id number] Chipping Machine Operator: Juanjose Osorio MD Urea nitrogen [Mass/Vol] 16 mg/dL Normal 8-23 [facility] Comment on above: Performed By: #### B MP #### [facility] [address] [place], [place] [id number] Chipping Machine Operator: Juanjose Osorio MD XR CHEST (2 VW)on [...] Brittany Chester MD 06/28/23 Final result Normal [facility] CHEMISTRYOrdered By: SYSTEM SYSTEM on 11-27-2022 Anion gap [Moles/Vol] 10 mmol/L Normal 6 - 16 mEq/L F [facility] Remisol Calcium [Mass/Vol] 8.9 mg/dL Normal 8.9 - 11. 1 mg/dL [facility] Chloride [Moles/Vol] 104 mmol/L Normal 101 - 1 11 mmol/L [facility] CO2 [Moles/Vol] 26 mmol/L Normal 21 - 31 mmol/L [facility] Creatinine [Mass/Vol] 1.0 mg/dL Normal 0.5 - 1.3 mg/dL [facility] GFR/1.73 sq M.predicted among non-blacks MDRD (S/P/Bld) [Vol rate/Area] 81 mL/min/1.73 m2 Normal >=59mL/min/1 .73 m2 [facility] Chem S Glucose [Mass/Vol] 88 mg/dL Normal 55 - 199 mg/dL [facility] Magnesium [Mass/Vol] 1.9 mg/dL Normal 1.3 - 2 .4 mg/dL [facility] Potassium [Moles/Vol] 4.2 mmol/L Normal 3.5 - 5.3 mmol/L [facility] Sodium [Moles/Vol] 136 mmol/L Normal 135 - 145 mmol/L [facility] Troponin I.cardiac [Mass/Vol] 4.80 pg/mL Low 15.90 - 38.40 pg/mL [facility] Urea nitrogen [Mass/Vol] 17 mg/dL Normal 5 - 21 mg/dL [facility] Urea nitrogen/Creatinine [Mass ratio] 17 mg/mg Normal 10 - 20 [facility] CHEMISTRYOrdered By: Bernadette Garsia on 11-27-2022 Natriuretic peptide B (Bld) [Mass/Vol] 25 pg/mL Normal 5 - 80 pg/mL [facility] HemeManSS COAGULATIONOrdered By: Arpit Quinonez on 11-27-2022 aPTT Coag (PPP) [Time] 31.9 s Normal 25.1 - 36.5 second(s) [facility] Auto Coag INR Coag (PPP) [Relative time] 1.2 {INR} Invalid Interpretation Code FT Auto Coag PT Coag (PPP) [Time] 13.7 s High 9.4 - 1 2.5 second(s) FT Auto Coag HEMATOLOGYOrdered By: SYSTEM SYSTEM on 11-27-2022 Basophils/100 [...] 42.3 % Normal 37.7 - 49.0 % [facility] HemeAutoSS Hemoglobin (Bld) [Mass/Vol] 14.3 g/dL Normal 13.5 - 17.5 gm/dL [facility] HemeAutoSS MCH (RBC) [Entitic mass] 33.2 pg Normal 27.0 - 34.0 pg [facility]eAutoSS MCHC (RBC) [Mass/Vol] 33.9 g/dL Normal 31.4 - 36.0 gm/dL [facility] HemeAutoSS MCV (RBC) [Entitic vol] 98.1 fL Normal 80.0 - 100.0 fL [facility]eAutoSS Platelet mean volume (Bld) [Entitic vol] 11.4 fL High 6.4 - 10.8 fL [facility] HemeAutoSS Platelets (Bld) [#/Vol] 110.0 E9/L Low 150.0 - 500.0 E9/L [facility]eAutoSS RBC (Bld) [#/Vol] 4.3 E12/L Normal 4.3 - 5.9 E12/L [facility] HemeAutoSS WBC corrected for nucl RBC Auto (Bld) [#/Vol] 6.3 E9/L Normal 4.0 - 11.0 E9/L [facility]eAutoSS URINALYSISOrdered By: Matteo Quinonez on 11-27-2022 Bacteria [...] Interpretation Code Negative [facility] UA Auto SS [place].plasma/Lith[place] m.RBC (Bld) [Mass ratio] 0-3 /HPF Normal [...] PM) Invalid Interpretation Code 1.005 - 1.030 [facility] UA Auto SS UA Spec Desc Clean Catch (11/27/22 6:30 PM) Normal [facility] UA Auto SS Urobilinogen Qn (U) [id number] {[place]'U}/dL Normal 0.0 - 1.0 EU/dL [facility] UA Auto SS WBC Auto Ql (U) 1+ *ABN* (11/27/22 6:30 PM) Invalid Interpretation Code Negative [facility] UA Auto SS WBC LM.HPF (Urine sed) [#/Area] 6-15 /HPF Invalid Interpretation Code 0-5/HPF [facility] UA Auto SS LIPID PROFILEon 10-11-2022 CHOL-HDL RATIO NORM SEE BELOW Normal [facility] Comment on above: Result Comment: 3.3 - 4.4 LOW RISK 4.4 - 7.1 AVERAGE RISK 7.1 - 11.0 MODERATE RISK >11.0 HIGH RISK Performed By: #### C MP, LIPID #### [facility] [address] [place] [address] Dr. Rufina Ramirez Cholesterol [Mass/Vol] 122 mg/dL Normal <=200 [facility] Comment on above: Performed By: #### C MP, LIPID #### [facility] [address] [place] [address] Dr. Rufina Ramirez Cholesterol in HDL [Mass/Vol] 42 mg/dL Normal 40-60 [facility] Comment on above: Performed By: #### C MP, LIPID #### [facility] [address] [address] [address] Rufina Ramirez Cholesterol in LDL [Mass/Vol] 70.2 mg/dL Normal [facility] Comment on above: Performed By: #### C MP, LIPID #### [facility] [address] [place] [address] Dr. Rufina Ramirez Cholesterol.total/Cho lesterol in HDL [Mass ratio] 2.9 {ratio} Normal [facility] Comment on above: Performed By: #### C MP, LIPID #### [facility] [address] [place] [address] Dr. Rufina Ramirez HDL NORMAL > or = 60 mg/dl - LOW CARDIOVASCULAR RISK <40 mg/dl - HIGH CARDIOVASCULAR RISK Normal [facility] Comment on above: Performed By: #### C MP, LIPID #### [facility] [address] [address] [address] Rufina Ramirez LDL CALC NORMAL SEE BELOW Normal [facility] Comment on above: Result Comment: <100 mg/dl OPTIMAL 100 - 129 mg/dl NEAR OR ABOVE OPTIMAL 130 - 159 mg/dl BORDERLINE HIGH 160 - 189 mg/dl HIGH >190 mg/dl VERY HIGH Performed By: #### C MP, LIPID #### [facility] [address] [address] [address] Rufina Ramirez Triglyceride [Mass/Vol] 49 mg/dL Normal <=150 [facility] Comment on above: Performed By: #### C MP, LIPID #### [facility] [address] [place] [address] [address] Rufina Ramirez VLDL CALC 9.8 mg/dL Normal [facility] Comment on above: Performed By: #### C MP, LIPID #### [facility] [address] [address] [address] Rufina Ramirez PROF 14(COMP METB)on 023 Albumin [Mass/Vol] 3.3 g/dL Critically low 3.4-5.0 [facility] Comment on above: Performed By: #### C MP, LIPID #### [facility] [address] [address] [address] Rufina Ramirez Albumin/Globulin [Mass ratio] 0.9 {ratio} Normal [facility] Comment on above: Performed By: #### C MP, LIPID #### [facility] [address] [place] [address] [address] Rufina Ramirez ALP [Catalytic activity/Vol] 71 U/L Normal 46-116 [facility] Comment on above: Performed By: #### C MP, LIPID #### [facility] [address] [address] [address] Rufina Ramirez ALT [Catalytic activity/Vol] 17 U/L Normal 16-63 [facility] Comment on above: Performed By: #### C MP, LIPID #### [facility] [address] [place] [address] [address] Rufina Ramirez Anion gap [Moles/Vol] 10.5 mmol/L Normal [facility] Comment on above: Performed By: #### C MP, LIPID #### [facility] [address] [address] [address] Rufina Ramirez AST [Catalytic activity/Vol] 16 U/L Normal 15-37 [facility] Comment on above: Performed By: #### C MP, LIPID #### [facility] [address] [place] [address] [address] Rufina Ramirez Bilirubin [Mass/Vol] 0.8 mg/dL Normal 0.2-1.0 [facility] Comment on above: Performed By: #### C MP, LIPID #### [facility] [address] [place] [address] Dr. Rufina Ramirez Calcium [Mass/Vol] 8.8 mg/dL Normal 8.5-10.1 [facility] Comment on above: Performed By: #### C MP, LIPID #### [facility] [address] [address] [address] Rufina Ramirez Chloride [Moles/Vol] 104 mmol/L Normal 98-107 [facility] Comment on above: Performed By: #### C MP, LIPID #### [facility] [address] [place] [address] Dr. Rufina Ramirez CO2 [Moles/Vol] 30.7 mmol/L Normal 21.0-32.0 [facility] Comment on above: Performed By: #### C MP, LIPID #### [facility] [address] [address] [address] Rufina Ramirez Creatinine [Mass/Vol] 0.93 mg/dL Normal 0.70-1.30 [facility] Comment on above: Performed By: #### C MP, LIPID #### [facility] [address] [place] [address] Dr. Rufina Ramirez EGFR-AF ALBANIAN >60 Normal >=60 [facility] Comment on above: Performed By: #### C MP, LIPID #### [facility] [address] [address] [address] Rufina Ramirez EGFR-NON AF ALBANIAN >60 Normal >=60 [facility] Comment on above: Performed By: #### C MP, LIPID #### [facility] [address] [address] [address] Rufina Ramirez Globulin (S) [Mass/Vol] 3.6 g/dL Normal [facility] Comment on above: Performed By: #### C MP, LIPID #### [facility] [address] [address] [address] Rufina Ramirez Glucose [Mass/Vol] 95 mg/dL Normal 74-106 [facility] Comment on above: Performed By: #### C MP, LIPID #### [facility] [address] [place] [address] Dr. Rufina Ramirez Potassium [Moles/Vol] 4.2 mmol/L Normal 3.5-5.1 [facility] Comment on above: Performed By: #### C MP, LIPID #### [facility] [address] [address] [address] Rufina Ramirez Protein [Mass/Vol] 6.9 g/dL Normal 6.4-8.2 [facility] Comment on above: Performed By: #### C MP, LIPID #### [facility] [address] [place] [address] Dr. Rufina Ramirez Sodium [Moles/Vol] 141 mmol/L Normal 136-145 [facility] Comment on above: Performed By: #### C MP, LIPID #### [facility] [address] [address] [address] Rufina Ramirez Urea nitrogen [Mass/Vol] 16.0 mg/dL Normal 7.0-18.0 [facility] Comment on above: Performed By: #### C MP, LIPID #### [facility] [address] [address] [address] Rufina Ramirez Urea nitrogen/Creatinine [Mass ratio] 17.2 mg/mg Normal [facility] Comment on above: Performed By: #### C MP, LIPID #### [facility] [address] [address] [address] Rufina Ramirez CBC AUTO DIFFon 06-26-2022 BASO # 0.0 103/ul Normal 0.0-0.1 [facility] Comment on above: Performed By: #### C BC #### [facility] [address] [address] [address] Rufina Ramirez Basophils/100 WBC (Bld) 0.4 % Normal 0.2-2.0 [facility] Comment on above: Performed By: #### C BC #### [facility] [address] [place] [address] Dr. Rufina Ramirez EO # 0.0 103/ul Normal 0.0-0.7 [facility] Comment on above: Performed By: #### C BC #### [facility] [address] [place] [address] Dr. Rufina Ramirez Eosinophils/100 WBC (Bld) 0.4 % Critically low 0.9-7.0 [facility] Comment on above: Performed By: #### C BC #### [facility] [address] [place] [address] Dr. Rufina Ramirez Erythrocyte distribution width (RBC) [Ratio] 13.2 % Normal 11.0-15.0 [facility] Comment on above: Performed By: #### C BC #### [facility] [address] [place] [address] Dr. Rufina Ramirez Hematocrit (Bld) [Volume fraction] 39.3 % Critically low 42.0-54.0 [facility] Comment on above: Performed By: #### C BC #### [facility] [address] [place] [address] Dr. Rufina Ramirez Hemoglobin (Bld) [Mass/Vol] 13.7 g/dL Critically low 14.0-18.0 [facility] Comment on above: Performed By: #### C BC #### [facility] [address] [place] [address] Dr. Rufina Ramirez IG # 0.01 10e3/ul Normal 0.00-0.03 [facility] Comment on above: Performed By: #### C BC #### [facility] [address] [place] [address] Dr. Rufina Ramirez IG % 0.2 % Normal 0.0-0.5 [facility] Comment on above: Performed By: #### C BC #### [facility] [address] [place] [address] Dr. Rufina Ramirez LYMPH # 1.8 103/ul Normal 1.2-3.8 [facility] Comment on above: Performed By: #### C BC #### [facility] [address] [place] [address] Dr. Rufina Ramirez Lymphocytes/100 WBC (Bld) 31.6 % Normal 20.5-60.0 [facility] Comment on above: Performed By: #### C BC #### [facility] [address] [place] [address] Dr. Rufina Ramirez MANUAL DIFF REQ NO Normal [facility] Comment on above: Performed By: #### C BC #### [facility] [address] [place] [address] Dr. Rufina Ramirez MCH (RBC) [Entitic mass] 32.9 pg Normal 25.9-34.0 [facility] Comment on above: Performed By: #### C BC #### [facility] [address] [place] [address] Dr. Rufina Ramirez MCHC (RBC) [Mass/Vol] 34.9 g/dL Normal 29.9-35.2 [facility] Comment on above: Performed By: #### C BC #### [facility] [address] [place] [address] Dr. Rufina Ramirez MCV (RBC) [Entitic vol] 94.5 fL Critically high 80.0-94.0 [facility] Comment on above: Performed By: #### C BC #### [facility] [address] [place] [address] Dr. Rufina Ramirez MONO # 0.5 103/ul Normal 0.3-0.8 [facility] Comment on above: Performed By: #### C BC #### [facility] [address] [address] [address] Rufina Ramirez Monocytes/100 WBC (Bld) 8.5 % Normal 1.7-12.0 [facility] Comment on above: Performed By: #### C BC #### [facility] [address] [address] [address] Rufina Ramirez NEUT # 3.3 103/ul Normal 1.4-6.5 [facility] Comment on above: Performed By: #### C BC #### [facility] [address] [address] [address] Rufina Ramirez Neutrophils/100 WBC (Bld) 58.9 % Normal 43.0-75.0 [facility] Comment on above: Performed By: #### C BC #### [facility] [address] [place] [address] Dr. Rufina Ramirez Platelet mean volume (Bld) [Entitic vol] 12.1 fL Normal 9.5-13.5 [facility] Comment on above: Performed By: #### C BC #### [facility] [address] [place] [address] Dr. Rufina Ramirez PLT 109 103/ul Critically low 150-450 [facility] Comment on above: Performed By: #### C BC #### [facility] [address] [place] [address] Dr. Rufina Ramirez RBC 4.16 106/ul Critically low 4.70-6.10 [facility] Comment on above: Performed By: #### C BC #### [facility] [address] [place] [address] Dr. Rufina Ramirez WBC 5.6 103/ul Normal 4.0-11.0 [facility] Comment on above: Performed By: #### C BC #### [facility] [address] [place] [address] Dr. Rufina Ramirez POINT OF CARE GLUCOSEon 05-31 Glucose [Mass/Vol] 97 mg/dL Normal 74-106 [facility] Comment on above: Performed By: #### P OCGLUC #### [facility] [address] [address] [address] Rufina Ramirez PROF CHEM 8 (BAS METB)on Anion gap [Moles/Vol] 11.2 mmol/L Normal [facility] Comment on above: Performed By: #### B MP #### [facility] [address] [place] [address] Dr. Rufina Ramirez Calcium [Mass/Vol] 8.9 mg/dL Normal 8.5-10.1 [facility] Comment on above: Performed By: #### B MP #### [facility] [address] [address] [address] Rufina Ramirez Chloride [Moles/Vol] 103 mmol/L Normal 98-107 [facility] Comment on above: Performed By: #### B MP #### [facility] [address] [place] [address] Dr. Rufina Ramirez CO2 [Moles/Vol] 27.2 mmol/L Normal 21.0-32.0 [facility] Comment on above: Performed By: #### B MP #### [facility] [address] [place] [address] Dr. Rufina Ramirez Creatinine [Mass/Vol] 0.81 mg/dL Normal 0.70-1.30 [facility] Comment on above: Performed By: #### B MP #### [facility] [address] [place] [address] Dr. Rufina Ramirez EGFR-AF ALBANIAN >60 Normal >=60 [facility] Comment on above: Performed By: #### B MP #### [facility] [address] [place] [address] Dr. Rufina Ramirez EGFR-NON AF ALBANIAN >60 Normal >=60 [facility] Comment on above: Performed By: #### B MP #### [facility] [address] [place] [address] Dr. Rufina Ramirez Glucose [Mass/Vol] 95 mg/dL Normal 74-106 [facility] Comment on above: Performed By: #### B MP #### [facility] [address] [place] [address] Dr. Rufina Ramirez Potassium [Moles/Vol] 4.4 mmol/L Normal 3.5-5.1 [facility] Comment on above: Performed By: #### B MP #### [facility] [address] [address] [address] Rufina Ramirez Sodium [Moles/Vol] 137 mmol/L Normal 136-145 [facility] Comment on above: Performed By: #### B MP #### [facility] [address] [address] [address] Rufina Ramirez Urea nitrogen [Mass/Vol] 17.0 mg/dL Normal 7.0-18.0 [facility] Comment on above: Performed By: #### B MP #### [facility] [address] [address] [address] Rufina Ramirez Urea nitrogen/Creatinine [Mass ratio] 21.0 mg/mg Normal [facility] Comment on above: Performed By: #### B MP #### [facility] [address] [address] [address] Rufina Ramirez CHEMISTRYOrdered By: SYSTEM SYSTEM on 05-15-2022 Troponin I.cardiac [Mass/Vol] 5.10 pg/mL Low 15.90 - 38.40 pg/mL [facility] Remisol Anion gap [Moles/Vol] 14 mmol/L Normal [...] Normal >=59mL/min/1 .73 m2 [facility] Chem S Glucose [Mass/Vol] 104 mg/dL Normal 55 - 199 mg/dL [facility] Remisol Magnesium [Mass/Vol] 1.9 mg/dL Normal 1.3 - 2 .4 mg/dL [facility] Remisol Potassium [Moles/Vol] 4.2 mmol/L Normal 3.5 - 5.3 mmol/L [facility] Remisol Sodium [Moles/Vol] 136 mmol/L Normal 135 - 145 mmol/L [facility] Remisol Troponin I.cardiac [Mass/Vol] 4.40 pg/mL Low 15.90 - 38.40 pg/mL [facility] Remisol Urea nitrogen [Mass/Vol] 16 mg/dL Normal 5 - 21 mg/dL [facility] Remisol Urea nitrogen/Creatinine [Mass ratio] 14 mg/mg Normal 10 - 20 [facility] Remisol COAGULATIONOrdered By: Rei Bolanos on 05-15-2022 aPTT Coag (PPP) [Time] 32.5 s Normal 25.1 - 36.5 second(s) [facility] Auto Coag INR Coag (PPP) [Relative time] 1.2 {INR} Invalid Interpretation Code [facility] Auto Coag PT Coag (PPP) [Time] 13.6 s High 9.4 - 1 2.5 second(s) [facility] Auto Coag HEMATOLOGYOrdered By: SYSTEM SYSTEM on 05-15-2022 Basophils/100 [...] 4.3 E12/L Normal 4.3 - 5.9 E12/L [facility] HemeAutoSS WBC corrected for nucl RBC Auto (Bld) [#/Vol] 6.5 E9/L Normal 4.0 - 11.0 E9/L [facility] CHEMISTRYOrdered By: SYSTEM SYSTEM on 01-02-2022 Albumin [Mass/Vol] 3.7 g/dL Normal 3.3 - 5.0 gm/dL FT Remisol Albumin/Globulin [Mass ratio] 1.3 {ratio} Normal [...] 33.4 g/dL Normal 31.4 - 36.0 gm/dL [facility] HemeAutoSS MCV (RBC) [Entitic vol] 97.7 fL Normal 80.0 - 100.0 fL [facility]eAutoSS Platelet mean volume (Bld) [Entitic vol] 11.4 fL High 6.4 - 10.8 fL [facility]AutoSS Platelets (Bld) [#/Vol] 87.0 E9/L Low 150.0 - 500.0 E9/L [facility]AutoSS RBC (Bld) [#/Vol] 4.3 E12/L Normal 4.3 - 5.9 E12/L [facility]eAutoSS WBC corrected for nucl RBC Auto (Bld) [#/Vol] 5.3 E9/L Normal 4.0 - 11.0 E9/L [facility] CHEMISTRYOrdered By: SYSTEM SYSTEM on 08-31-2021 Anion gap [Moles/Vol] 11 mmol/L Normal 6 - 16 mEq/L F [facility] Remisol Calcium [Mass/Vol] 9.2 mg/dL Normal 8.9 - 11. 1 mg/dL [facility] Remisol Chloride [Moles/Vol] 106 mmol/L Normal 101 - 1 11 mmol/L [facility] Remisol CO2 [Moles/Vol] 25 mmol/L Normal 21 - 31 mmol/L [facility] Remisol Creatinine [Mass/Vol] 0.9 mg/dL Normal 0.5 - 1.3 mg/dL [facility] Remisol GFR/1.73 sq M.predicted among blacks MDRD (S/P/Bld) [Vol rate/Area] mL/min/1.73 m2 Normal >=59mL/min/1 .73 m2 [facility] Chem S GFR/1.73 sq M.predicted among non-blacks MDRD (S/P/Bld) [Vol rate/Area] mL/min/1.73 m2 Normal >=59mL/min/1 .73 m2 [facility] Chem S Glucose [Mass/Vol] 78 mg/dL Normal 55 - 199 mg/dL [facility] Remisol Potassium [Moles/Vol] 4.3 mmol/L Normal 3.5 - 5.3 mmol/L [facility] Remisol Sodium [Moles/Vol] 138 mmol/L Normal 135 - 145 mmol/L [facility] Remisol Urea nitrogen [Mass/Vol] 20 mg/dL Normal 5 - 21 mg/dL [facility] Remisol Urea nitrogen/Creatinine [Mass ratio] 22 mg/mg High 10 - 20 [facility] Remisol HEMATOLOGYOrdered By: SYSTEM SYSTEM on 08-31-2021 Basophils/100 WBC (Bld) 0.4 % Normal 0.0 - 2.0 % [facility]eAutoSS Basophils/Leukocytes Auto (Bld) [Pure # fraction] 0.0 E9/L Normal 0.0 - 0.2 E9/L [facility] Eosinophils/100 WBC (Bld) 0.5 % Normal 0.0 - 8.0 % [facility] Eosinophils/Leukocyte s Auto (Bld) [Pure # fraction] 0.0 E9/L Normal 0.0 - 0.5 E9/L [facility] Lymphocytes/100 WBC (Bld) 42.7 % Normal 14.0 - 50.0 % [facility]Auto[facility] Lymphocytes/Leukocyte s Auto (Bld) [Pure # fraction] 2.5 E9/L Normal 1.0 - 4.0 E9/L [facility] Monocytes/100 WBC (Bld) 9.3 % Normal 4.0 - 14.0 % [facility] Monocytes/Leukocytes Auto (Bld) [Pure # fraction] 0.5 E9/L Normal 0.2 - 1.0 E9/L [facility] Neutrophils/100 WBC (Bld) 47.1 % Normal 36.0 - 75.0 % [facility] Neutrophils/Leukocyte s Auto (Bld) [Pure # fraction] 2.8 E9/L Normal 2.0 - 7.5 E9/L [facility] HEMATOLOGYOrdered By: Tamar [place] on 08-31-2021 Erythrocyte distribution width (RBC) [Ratio] 13.3 % Normal 10.9 - 14.2 % [facility] Hematocrit (Bld) [Volume fraction] 39.3 % Normal 37.7 - 49.0 % [facility] Hemoglobin (Bld) [Mass/Vol] 13.5 g/dL Normal 13.5 - 17.5 gm/dL [facility] MCH (RBC) [Entitic mass] 33.5 pg [...] [facility] Comment on above: Result Comment: Valencia saravia reviewed by AEW. CHEMISTRYOrdered By: SYSTEM SYSTEM [...] Remisol CRP [Mass/Vol] 0.5 mg/dL Normal <=1.9mg/dL [facility] Remis ol GFR/1.73 sq M.predicted among blacks MDRD (S/P/Bld) [Vol rate/Area] mL/min/1.73 m2 Normal >=59mL/min/1 .73 m2 [facility] Chem S GFR/1.73 sq M.predicted among non-blacks MDRD (S/P/Bld) [Vol rate/Area] mL/min/1.73 m2 Normal >=59mL/min/1 .73 m2 [facility] Chem S Glucose [Mass/Vol] 84 mg/dL Normal [...] - 38.40 pg/mL [facility] Remisol COAGULATIONOrdered By: Allis on Blair on 08-30-2021 Fibrin D-dimer FEU (PPP) [Mass/Vol] [...] 1.0 E9/L [facility] Neutrophils/100 WBC (Bld) 45.2 % Normal 36.0 - 75.0 % [facility] Neutrophils/Leukocyte s Auto (Bld) [Pure # fraction] 3.0 E9/L Normal 2.0 - 7.5 E9/L [facility] HEMATOLOGYOrdered By: Jack Coleman on 08-30-2021 Erythrocyte distribution width (RBC) [Ratio] 13.5 % Normal 10.9 - 14.2 % [facility] Hematocrit (Bld) [Volume fraction] 40.8 % Normal 37.7 - 49.0 % [facility] Hemoglobin (Bld) [Mass/Vol] 13.9 g/dL Normal 13.5 - 17.5 gm/dL [facility] MCH (RBC) [Entitic mass] 33.4 pg Normal 27.0 - 34.0 pg [facility] MCHC (RBC) [Mass/Vol] 34.2 g/dL Normal 31.4 - 36.0 gm/dL [facility] MCV (RBC) [Entitic vol] 97.5 fL Normal 80.0 - 100.0 fL [facility] [facility] HemeAutoSS Morphology Mike (Bld) [Interp] Normal (08/30/21 6:02 AM) Normal [facility] HemeManSS Platelet mean volume (Bld) [Entitic vol] 11.5 fL High 6.4 - 10.8 fL [facility] HemeAutoSS Platelets (Bld) [#/Vol] 117.0 E9/L Low 150.0 - 500.0 E9/L [facility] HemeAutoSS Platelets Large LM Ql (Bld) Present (08/30/21 6:02 AM) Normal [facility] [facility] HemeManSS RBC (Bld) [#/Vol] 4.2 E12/L Low 4.3 - 5.9 E12/L [facility] HemeAutoSS WBC corrected for nucl RBC Auto (Bld) [#/Vol] 6.7 E9/L Normal 4.0 - 11.0 E9/L [facility] [facility] HemeAutoSS Reference Laboratory Testing Ordered By: Generated DomainUser on 08-30-2021 Cortisol [Mass/Vol] 1.9 ug/dL Invalid Interpretation Code [facility] [facility] [employer] Comment on above: Result Comment: Antelmo isol AM 6.2 - 19.4 Cortisol PM 2.3 - 11.9 Performed at: [facility] [id number] PhD Sachin Garcia PSA ScreeningOrdered By: Fely Arteaga on 03-05-2021 [employer] Phone: Comprehensive Metabolic Pane lOrdered By: Doug Arteaga on 02-16-2021 Albumin [Mass/Vol] 3.8 g/dL 3.5 - 5.2 g/dL [employer] Phone: Albumin/Globulin Ratio NOT REPORTED [employer] Phone: ALP (Bld) [Catalytic activity/Vol] 70 U/L 40 - 129 U/L [employer] Phone: ALT [Catalytic activity/Vol] 12 U/L 5 - 41 U/L [employer] Phone: Anion gap [Moles/Vol] 8 mmol/L Low 9 - 17 mmol/L [employer] Phone: AST [Catalytic activity/Vol] 16 U/L <40 [employer] Phone: Bilirubin [Mass/Vol] 0.61 mg/dL 0.30 - 1.20 mg/dL [employer] Phone: Calcium [Mass/Vol] 8.8 mg/dL 8.6 - 10. 4 mg/dL [employer] Phone: Chloride [Moles/Vol] 105 mmol/L 98 - 10 7 mmol/L [employer] Phone: CO2 [Moles/Vol] 27 mmol/L 20 - 31 mmol/L [employer] Phone: Creatinine [Mass/Vol] 0.84 mg/dL 0.70 - 1.20 mg/dL [employer] Phone: Free PSA/Total PSA [Mass fraction] 6.6 g/dL 6.4 - 8.3 g/dL [employer] Phone: GFR >60 >60 mL/min [employer] Phone: GFR Non- >60 >60 mL/min [employer] Phone: GFR/1.73 sq M.predicted MDRD (S/P/Bld) [Vol rate/Area] [employer] Phone: Comment on above: Average GFR for 60-6 9 years old: 85 mL/min/1.73sq m Chronic Kidney Disease: <60 mL/min/1.73sq m Kidney failure: <15 mL/min/1.73sq m eGFR calculated using average adult body mass. Additional eGFR calculator available at: http://www.[employer].MedTel24/multiple_crcl_2012.htm GFR/1.73 sq M.predicted MDRD (S/P/Bld) [Vol rate/Area] NOT REPORTED [employer] Phone: Glucose [Mass/Vol] 86 mg/dL 70 - 99 mg/dL [employer] Phone: Interpretation and review of laboratory results Abnormal [employer] Phone: Potassium [Moles/Vol] 3.9 mmol/L 3.7 - 5.3 mmol/L [employer] Phone: Sodium [Moles/Vol] 140 mmol/L 135 - 144 mmol/L [employer] Phone: Urea nitrogen (BldV) [Mass/Vol] 14 mg/dL 8 - 23 mg/dL [employer] Phone: Urea nitrogen/Creatinine (Bld) [Mass ratio] 17 [employer] Phone: Lipid PanelOrdered By: Doug Arteaga on 02-16-2021 Cholesterol [Mass/Vol] 125 mg/dL <200 [employer] Phone: Comment on above: Cholesterol Guidelines: <200 Desirable 200-240 Borderline >240 Undesirable Cholesterol in HDL [Mass/Vol] 40 mg/dL Low >40 [employer] Phone: Comment on above: HDL Guidelines: <40 Undesirable 40-59 Borderline >59 Desirable Cholesterol in LDL [Mass/Vol] 73 mg/dL 0 - 130 mg/dL [employer] Phone: Comment on above: LDL Guidelines: <100 Desirable 100-129 Near to/above Desirable 130-159 Borderline >159 Undesirable Direct (measured) LDL and calculated LDL are not interchangeable tests. Cholesterol in VLDL [Mass/Vol] NOT REPORTED 1 - 30 mg/dL [employer] Phone: Cholesterol.total/Cho lesterol in HDL [Mass ratio] 3.1 {ratio} <5 [employer] Phone: Interpretation and review of laboratory results Abnormal [employer] Phone: Triglyceride [Mass/Vol] 60 mg/dL <150 [employer] Phone: Comment on above: Triglyceride Guidelines: <150 Desirable 150-199 Borderline 200-499 High >499 Very high Based on AHA Guidelines for fasting triglyceride, February 2012. [employer] Phone: No Panel InformationOrdered By: Doug Arteaga on 02-16-2021 [employer] Phone: Patient Fasting?Ordered By: Doug Arteaga on 02-16-2021 Patient Fasting? yes [employer] Work Phone: LookIt Phone: TSH without ReflexOrdered By : Doug Arteaga on 02-16-2021 TSH Qn 1.60 m[IU]/L [employer] Phone: CBC Auto Differentialon Basophils (Bld) [#/Vol] 0.00 10*3/uL [place] Basophils/100 WBC (Bld) 0 % 0 - 2 % [place] Differential Type YES [place] Eosinophils (Bld) [#/Vol] 0.10 10*3/uL [place] Eosinophils/100 WBC (Bld) 1 % 0 - 5 % [place] Erythrocyte distribution width (RBC) [Ratio] 14.2 % 12.1 - 15.2 % [place] Hematocrit (Bld) [Volume fraction] 42.4 % 41 - 53 % [place] Hemoglobin (Bld) [Mass/Vol] 14.4 g/dL 13.5 - 17.5 g/dL [place] Interpretation and review of laboratory results Abnormal [place] Lymphocytes (Bld) [#/Vol] 3.20 10*3/uL [place] Lymphocytes/100 WBC (Bld) 42 % 13 - 44 % [place] MCH (RBC) [Entitic mass] 34.1 pg High 26 - 34 pg [place] MCHC (RBC) [Mass/Vol] 34.0 g/dL 31 - 37 g/dL [place] MCV (RBC) [Entitic vol] 100.3 fL High 80 - 100 fL [place] Monocytes (Bld) [#/Vol] 0.60 10*3/uL [place] Monocytes/100 WBC (Bld) 8 % 5 - 9 % [place] Platelet mean volume (Bld) [Entitic vol] NOT REPORTED 6 - 12 fL [place] Platelets (Bld) [#/Vol] NOT REPORTED [place] Platelets (Bld) [#/Vol] 123 10*3/uL Low [place] RBC (Bld) [#/Vol] 4.23 10*6/uL Low 4.5 - 5.9 m/uL [place] RBC morphology finding Nom (Bld) NOT REPORTED [place] Segmented neutrophils/100 WBC (Bld) 49 % 39 - 75 % [place] Segs Absolute 3.70 [place] WBC (Bld) [#/Vol] NOT REPORTED per 100 WBC [place] WBC (Bld) [#/Vol] 7.7 10*3/uL [place] WBC Morphology NOT REPORTED [place] CTA HEAD W WO CONTRASTon 1. No acute intracranial findings. 2. Unremarkable intracranial CT angiograms [place], Mhpn Incoming Radiant Results From [employer] - 06/02/2020 3:26 PM EST EXAMINATION: CTA [...] intracranial findings. 2. Unremarkable intracranial CT angiograms [facility] [place] EXAMINATION: CTA HEAD W WO CONTRAST HISTORY: [...] areas of abnormal intra-axial or extra-axial enhancement. [place] Comprehensive Metabolic Pane herminio 06-02-2020 Albumin [Mass/Vol] 4.3 g/dL 3.5 - 5.2 g/dL [place] Albumin/Globulin [Mass ratio] NOT REPORTED [place] ALP [Catalytic activity/Vol] 74 U/L 40 - 129 U/L [place] ALT [Catalytic activity/Vol] 13 U/L 5 - 41 U/L [place] Anion gap [Moles/Vol] 5 mmol/L Low 9 - 17 mmol/L [place] AST [Catalytic activity/Vol] 18 U/L <40 [place] Bilirubin Ql (U) 0.87 mg/dL 0.3 - 1.2 mg/dL [place] Bun/Cre Ratio 17 [place] Calcium [Mass/Vol] 9.1 mg/dL 8.6 - 10. 4 mg/dL [place] Chloride [Moles/Vol] 102 mmol/L 98 - 10 7 mmol/L [place] CO2 [Moles/Vol] 30 mmol/L 20 - 31 mmol/L [place] Creatinine [Mass/Vol] 0.76 mg/dL 0.7 - 1.2 mg/dL [place] GFR >60 >60 mL/min [place] GFR Non- >60 >60 mL/min [place] GFR/1.73 sq M predicted among non-blacks MDRD (S/P/Bld) [Vol rate/Area] [place] Comment on above: Average GFR for 60-6 9 years old: 85 mL/min/1.73sq m Chronic Kidney Disease: <60 mL/min/1.73sq m Kidney failure: <15 mL/min/1.73sq m eGFR calculated using average adult body mass. Additional eGFR calculator available at: http://www.sli.do/multiple_crcl_2011.htm GFR/1.73 sq M predicted among non-blacks MDRD (S/P/Bld) [Vol rate/Area] NOT REPORTED [place] Glucose [Mass/Vol] 100 mg/dL High 70 - 99 mg/dL [place] Interpretation and review of laboratory results Abnormal [place] Potassium [Moles/Vol] 4.1 mmol/L 3.7 - 5.3 mmol/L [place] Protein [Mass/Vol] 6.7 g/dL 6.4 - 8.3 g/dL [place] Sodium [Moles/Vol] 137 mmol/L 135 - 144 mmol/L [place] Urea nitrogen [Mass/Vol] 13 mg/dL 8 - 23 mg/dL [place] Glucose, Whole Bloodon 06-02 Glucose [Mass/Vol] 83 mg/dL 65 - 99 mg/dL [place] Glucose [Mass/Vol] 65 mg/dL 65 - 99 mg/dL [place] Otheron 06-02-2020 Immature granulocytes (Bld) [#/Vol] NOT REPORTED [place] Hematologyon 01-19-2020 Basophils (Bld) [#/Vol] 0.00 10*3/uL [place] Basophils/100 WBC (Bld) 0 % 0 - 2 % [place] Eosinophils (Bld) [#/Vol] 0.10 10*3/uL [place] Eosinophils/100 WBC (Bld) 1 % 0 - 5 % [place] Hematocrit (Bld) [Volume fraction] 43.1 % 41 - 53 % [place] Hemoglobin (Bld) [Mass/Vol] 14.5 g/dL 13.5 - 17.5 g/dL [place] Lymphocytes (Bld) [#/Vol] 2.40 10*3/uL [place] Lymphocytes/100 WBC (Bld) 30 % 13 - 44 % [place] MCH (RBC) [Entitic mass] 33.2 pg 26 - 34 pg [place] MCV (RBC) [Entitic vol] 98.7 fL 80 - 100 fL [place] Monocytes (Bld) [#/Vol] 0.60 10*3/uL [place] Monocytes/100 WBC (Bld) 8 % 5 - 9 % [place] Platelets (Bld) [#/Vol] NOT REPORTED [place] Platelets (Bld) [#/Vol] 114 10*3/uL [place] RBC (Bld) [#/Vol] 4.37 10*6/uL Low 4.5 - 5.9 m/uL [place] RBC morphology finding Nom (Bld) NOT REPORTED [place] WBC (Bld) [#/Vol] NOT REPORTED per 100 WBC [place] WBC (Bld) [#/Vol] 8.0 10*3/uL [place] Metabolic Panelon 01-19-2020 Anion gap [Moles/Vol] 9 mmol/L 9 - 17 mmol/L [place] Calcium [Mass/Vol] 9.9 mg/dL 8.6 - 10. 4 mg/dL [place] Chloride [Moles/Vol] 103 mmol/L 98 - 10 7 mmol/L [place] CO2 [Moles/Vol] 22 mmol/L 20 - 31 mmol/L [place] Creatinine [Mass/Vol] 0.9 mg/dL 0.7 - 1.2 mg/dL [place] GFR/1.73 sq M predicted among non-blacks MDRD (S/P/Bld) [Vol rate/Area] [place] Comment on above: Average GFR for 60-6 9 years old: 85 mL/min/1.73sq m Chronic Kidney Disease: <60 mL/min/1.73sq m Kidney failure: <15 mL/min/1.73sq m eGFR calculated using average adult body mass. Additional eGFR calculator available at: http://www.[employer].MedTel24/multiple_crcl_2012.htm GFR/1.73 sq M predicted among non-blacks MDRD (S/P/Bld) [Vol rate/Area] NOT REPORTED [place] Glucose [Mass/Vol] 98 mg/dL 70 - 99 mg/dL [place] Potassium [Moles/Vol] 4.3 mmol/L 3.7 - 5.3 mmol/L [place] Sodium [Moles/Vol] 134 mmol/L Low 135 - 144 mmol/L [place] Urea nitrogen [Mass/Vol] 13 mg/dL 8 - 23 mg/dL [place] Otheron 01-19-2020 EXAM: CT HEAD WO [...] SOFT TISSUES: Unremarkable. Moderate intracranial carotid atherosclerosis. [place] CT evidence of acute intracranial abnormality. [place], [place] Incoming Radiant Results From [employer] - 01/19/2020 4:15 PM EDT EXAM: CT [...] No CT evidence of acute intracranial abnormality. [place] Bun/Cre Ratio 14 [place] GFR >60 >60 mL/min [place] GFR Non- >60 >60 mL/min [place] Interpretation and review of laboratory results Abnormal [place] Differential Type YES [place] Erythrocyte distribution width (RBC) [Ratio] 13.4 % 12.1 - 15.2 % [place] Immature granulocytes (Bld) [#/Vol] NOT REPORTED [place] Interpretation and review of laboratory results Abnormal [place] MCHC (RBC) [Mass/Vol] 33.7 g/dL 31 - 37 g/dL [place] Platelet mean volume (Bld) [Entitic vol] NOT REPORTED 6 - 12 fL [place] Segmented neutrophils/100 WBC (Bld) 61 % 39 - 75 % [place] Segs Absolute 4.90 [place] WBC Morphology NOT REPORTED [place] Brain Natriuretic Peptideon 01-14-2020 Natriuretic peptide B (Bld) [Mass/Vol] Pro-BNP Reference Range: [place] Comment on above: Rule Out: <300 Horn Zone: Age <50 300-450 Age 50-75 300-900 Age >75 300-1800 Usually represents mild to moderate HF but other cardiopulmonary causes cannot be ruled out. Rule In: Age <50 >450 Age 50-75 >900 Age >75 >1800 Natriuretic peptide B (Bld) [Mass/Vol] 117 pg/mL <300 [place] Comment on above: Pro-BNP results jackelin ot be compared to BNP results. CBC Auto Differentialon 12-28 Basophils (Bld) [#/Vol] 0.00 10*3/uL [place] Basophils/100 WBC (Bld) 1 % 0 - 2 % [place] Differential Type YES [place] Eosinophils (Bld) [#/Vol] 0.00 10*3/uL [place] Eosinophils/100 WBC (Bld) 0 % 0 - 5 % [place] Erythrocyte distribution width (RBC) [Ratio] 13.8 % 12.1 - 15.2 % [place] Hematocrit (Bld) [Volume fraction] 44.5 % 41 - 53 % [place] Hemoglobin (Bld) [Mass/Vol] 15.0 g/dL 13.5 - 17.5 g/dL [place] Interpretation and review of laboratory results Abnormal [place] Lymphocytes (Bld) [#/Vol] 1.90 10*3/uL [place] Lymphocytes/100 WBC (Bld) 26 % 13 - 44 % [place] MCH (RBC) [Entitic mass] 33.3 pg 26 - 34 pg [place] MCHC (RBC) [Mass/Vol] 33.6 g/dL 31 - 37 g/dL [place] MCV (RBC) [Entitic vol] 99.0 fL 80 - 100 fL [place] Monocytes (Bld) [#/Vol] 0.40 10*3/uL [place] Monocytes/100 WBC (Bld) 6 % 5 - 9 % [place] Platelet mean volume (Bld) [Entitic vol] NOT REPORTED 6 - 12 fL [place] Platelets (Bld) [#/Vol] 135 10*3/uL Low [place] Platelets (Bld) [#/Vol] NOT REPORTED [place] RBC (Bld) [#/Vol] 4.49 10*6/uL Low 4.5 - 5.9 m/uL [place] RBC morphology finding Nom (Bld) NOT REPORTED [place] Segmented neutrophils/100 WBC (Bld) 67 % 39 - 75 % [place] Segs Absolute 4.80 [place] WBC (Bld) [#/Vol] NOT REPORTED per 100 WBC [place] WBC (Bld) [#/Vol] 7.2 10*3/uL [place] WBC Morphology NOT REPORTED [place] Comprehensive Metabolic Pane herminio 01-14-2020 Albumin [Mass/Vol] 4.2 g/dL 3.5 - 5.2 g/dL [place] Albumin/Globulin [Mass ratio] NOT REPORTED [place] ALP [Catalytic activity/Vol] 77 U/L 40 - 129 U/L [place] ALT [Catalytic activity/Vol] 13 U/L 5 - 41 U/L [place] Anion gap [Moles/Vol] 11 mmol/L 9 - 17 mmol/L [place] AST [Catalytic activity/Vol] 22 U/L <40 [place] Bilirubin Ql (U) 1.08 mg/dL 0.3 - 1.2 mg/dL [place] Bun/Cre Ratio 16 [place] Calcium [Mass/Vol] 10.1 mg/dL 8.6 - 10. 4 mg/dL [place] Chloride [Moles/Vol] 105 mmol/L 98 - 10 7 mmol/L [place] CO2 [Moles/Vol] 23 mmol/L 20 - 31 mmol/L [place] Creatinine [Mass/Vol] 0.8 mg/dL 0.7 - 1.2 mg/dL [place] GFR >60 >60 mL/min [place] GFR Non- >60 >60 mL/min [place] GFR/1.73 sq M predicted among non-blacks MDRD (S/P/Bld) [Vol rate/Area] NOT REPORTED [place] GFR/1.73 sq M predicted among non-blacks MDRD (S/P/Bld) [Vol rate/Area] [place] Comment on above: Average GFR for 60-6 9 years old: 85 mL/min/1.73sq m Chronic Kidney Disease: <60 mL/min/1.73sq m Kidney failure: <15 mL/min/1.73sq m eGFR calculated using average adult body mass. Additional eGFR calculator available at: http://www.[employer].MedTel24/multiple_crcl_[email or web address].htm Glucose [Mass/Vol] 104 mg/dL High 70 - 99 mg/dL [place] Interpretation and review of laboratory results Abnormal [place] Potassium [Moles/Vol] 4.5 mmol/L 3.7 - 5.3 mmol/L [place] Protein [Mass/Vol] 7.3 g/dL 6.4 - 8.3 g/dL [place] Sodium [Moles/Vol] 139 mmol/L 135 - 144 mmol/L [place] Urea nitrogen [Mass/Vol] 13 mg/dL 8 - 23 mg/dL [place] D-Dimer, Quantitativeon 12-28 D-Dimer, Quant 0.45 [place] Comment on above: When combined with [...] 2.2 mg/dL 1.6 - 2 .6 mg/dL [place] Otheron 01-14-2020 Immature granulocytes (Bld) [#/Vol] NOT REPORTED 0 % [place] Troponinon 01-14-2020 Troponin I.cardiac [Mass/Vol] [place] Comment on above: Reference Range: <0.03 [...] diagnosis. Troponin T.cardiac [Mass/Vol] ug/L <0.03 ng/mL [place] Comment on above: Troponin T results c annot be compared to Troponin-I results. Troponin, High Sensitivity NOT REPORTED 0 - 22 ng/L [place] Troponin I.cardiac [Mass/Vol] [place] Comment on above: Reference Range: <0.03 [...] diagnosis. Troponin T.cardiac [Mass/Vol] ug/L <0.03 ng/mL [place] Comment on above: Troponin T results c annot be compared to Troponin-I results. Troponin, High Sensitivity NOT REPORTED 0 - 22 ng/L [place] XR CHEST PORTABLEon 01-14-20 20 Negative chest. [place] Incoming Radiant Results From [employer] - 01/14/2020 3:26 PM EDT EXAM: XR CHEST PORTABLE HISTORY: Reason for exam:->palpitations tachycardia, 64-year-old male. COMPARISON: Chest 11/19/2019. TECHNIQUE: AP portable chest 1420 hours. FINDINGS: Heart size normal. Lungs clear. Bony thorax and upper abdomen normal. IMPRESSION: Negative chest. [place] EXAM: XR CHEST PORTABLE HISTORY: Reason for exam:->palpitations tachycardia, 64-year-old male. COMPARISON: Chest 11/19/2019. TECHNIQUE: AP portable chest 1420 hours. FINDINGS: Heart size normal. Lungs clear. Bony thorax and upper abdomen normal. [place] Lipid Panelon 12-03-2019 Cholesterol [Mass/Vol] 111 mg/dL <200 [place] Comment on above: Cholesterol Guidelines: <200 Desirable 200-240 Borderline >240 Undesirable Cholesterol in HDL [Mass/Vol] 38 mg/dL Low >40 [place] Comment on above: HDL Guidelines: <40 Undesirable 40-59 Borderline >59 Desirable Cholesterol in LDL [Mass/Vol] 60 mg/dL 0 - 130 mg/dL [place] Comment on above: LDL Guidelines: <100 Desirable 100-129 Near to/above Desirable 130-159 Borderline >159 Undesirable Direct (measured) LDL and calculated LDL are not interchangeable tests. Cholesterol in VLDL [Mass/Vol] NOT REPORTED 1 - 30 mg/dL [place] Cholesterol.total/Cho lesterol in HDL [Mass ratio] 2.9 {ratio} <5 [place] Interpretation and review of laboratory results Abnormal [place] Triglyceride [Mass/Vol] 64 mg/dL <150 [place] Comment on above: Triglyceride Guidelines: <150 Desirable 150-199 Borderline 200-499 High >499 Very high Based on AHA Guidelines for fasting triglyceride, February 2012. Patient Fasting?on 0 Patient Fasting? YES [place] APTTon 11-19-2019 aPTT Coag (Bld) [Time] 24.7 s [place] Comment on above: PTT Therapeutic Range: 61.7-88.4 Therapeutic range corresponds to plasma heparin levels of 0.3-0.7 U/mL. Brain Natriuretic Peptideon 11-19-2019 Natriuretic peptide B (Bld) [Mass/Vol] 78 pg/mL <300 [place] Comment on above: Pro-BNP results jackelin ot be compared to BNP results. Natriuretic peptide B (Bld) [Mass/Vol] Pro-BNP Reference Range: [place] Comment on above: Rule Out: <300 Horn Zone: Age <50 300-450 Age 50-75 300-900 Age >75 300-1800 Usually represents mild to moderate HF but other cardiopulmonary causes cannot be ruled out. Rule In: Age <50 >450 Age 50-75 >900 Age >75 >1800 CBC Auto Differentialon 10-29 Basophils (Bld) [#/Vol] 0.00 10*3/uL [place] Basophils/100 WBC (Bld) 1 % 0 - 2 % [place] Differential Type YES [place] Eosinophils (Bld) [#/Vol] 0.00 10*3/uL [place] Eosinophils/100 WBC (Bld) 1 % 0 - 5 % [place] Erythrocyte distribution width (RBC) [Ratio] 13.8 % 12.1 - 15.2 % [place] Hematocrit (Bld) [Volume fraction] 42.7 % 41 - 53 % [place] Hemoglobin (Bld) [Mass/Vol] 14.7 g/dL 13.5 - 17.5 g/dL [place] Interpretation and review of laboratory results Abnormal [place] Lymphocytes (Bld) [#/Vol] 2.40 10*3/uL [place] Lymphocytes/100 WBC (Bld) 33 % 13 - 44 % [place] MCH (RBC) [Entitic mass] 34.5 pg High 26 - 34 pg [place] MCHC (RBC) [Mass/Vol] 34.4 g/dL 31 - 37 g/dL [place] MCV (RBC) [Entitic vol] 100.3 fL High 80 - 100 fL [place] Monocytes (Bld) [#/Vol] 0.50 10*3/uL [place] Monocytes/100 WBC (Bld) 7 % 5 - 9 % [place] Platelet mean volume (Bld) [Entitic vol] NOT REPORTED 6 - 12 fL [place] Platelets (Bld) [#/Vol] NOT REPORTED [place] Platelets (Bld) [#/Vol] 112 10*3/uL Low [place] RBC (Bld) [#/Vol] 4.26 10*6/uL Low 4.5 - 5.9 m/uL [place] RBC morphology finding Nom (Bld) NOT REPORTED [place] Segmented neutrophils/100 WBC (Bld) 58 % 39 - 75 % [place] Segs Absolute 4.30 [place] WBC (Bld) [#/Vol] 7.3 10*3/uL [place] WBC (Bld) [#/Vol] NOT REPORTED per 100 WBC [place] WBC Morphology NOT REPORTED [place] Comprehensive Metabolic Pane l w/ Reflex to MGon 11-19-2019 Albumin [Mass/Vol] 4 g/dL 3.5 - 5.2 g/dL [place] Albumin/Globulin [Mass ratio] NOT REPORTED [place] ALP [Catalytic activity/Vol] 83 U/L 40 - 129 U/L [place] ALT [Catalytic activity/Vol] 15 U/L 5 - 41 U/L [place] Anion gap [Moles/Vol] 9 mmol/L 9 - 17 mmol/L [place] AST [Catalytic activity/Vol] 22 U/L <40 [place] Bilirubin Ql (U) 0.65 mg/dL 0.3 - 1.2 mg/dL [place] Bun/Cre Ratio 19 [place] Calcium [Mass/Vol] 9.8 mg/dL 8.6 - 10. 4 mg/dL [place] Chloride [Moles/Vol] 106 mmol/L 98 - 10 7 mmol/L [place] CO2 [Moles/Vol] 23 mmol/L 20 - 31 mmol/L [place] Creatinine [Mass/Vol] 0.81 mg/dL 0.7 - 1.2 mg/dL [place] GFR >60 >60 mL/min [place] GFR Non- >60 >60 mL/min [place] GFR/1.73 sq M predicted among non-blacks MDRD (S/P/Bld) [Vol rate/Area] NOT REPORTED [place] GFR/1.73 sq M predicted among non-blacks MDRD (S/P/Bld) [Vol rate/Area] [place] Comment on above: Average GFR for 60-6 9 years old: 85 mL/min/1.73sq m Chronic Kidney Disease: <60 mL/min/1.73sq m Kidney failure: <15 mL/min/1.73sq m eGFR calculated using average adult body mass. Additional eGFR calculator available at: http://www.sli.do/multiple_crcl_2012.htm Glucose [Mass/Vol] 102 mg/dL High 70 - 99 mg/dL [place] Interpretation and review of laboratory results Abnormal [place] Potassium [Moles/Vol] 4.4 mmol/L 3.7 - 5.3 mmol/L [place] Protein [Mass/Vol] 7.3 g/dL 6.4 - 8.3 g/dL [place] Sodium [Moles/Vol] 138 mmol/L 135 - 144 mmol/L [place] Urea nitrogen [Mass/Vol] 15 mg/dL 8 - 23 mg/dL [place] D-Dimer, Quantitativeon 10-29 D-Dimer, Quant 0.40 [place] Comment on above: Elevated levels of [...] 11-19-2019 Immature granulocytes (Bld) [#/Vol] NOT REPORTED [place] [facility] 11-19-2019 INR Coag (PPP) [Relative time] 1.0 {INR} [place] Comment on above: * THERAPY INDICATIONS * REFERENCE RANGES Pts not on anti-coagulants 1.0 - 1.5 INR Low risk pts on anti-coagulants 2.0 - 3.0 INR High risk pts on anti-coagulants 2.5 - 3.5 INR Prevention of atrial thrombo-embolism 3.0 - 4.5 INR PT Coag (PPP) [Time] 10.3 s [place] Troponinon 11-19-2019 Troponin I.cardiac [Mass/Vol] [place] Comment on above: Reference Range: <0.03 [...] diagnosis. Troponin T.cardiac [Mass/Vol] ug/L <0.03 ng/mL [place] Comment on above: Troponin T results c annot be compared to Troponin-I results. Troponin, High Sensitivity NOT REPORTED 0 - 22 ng/L [place] Troponin I.cardiac [Mass/Vol] [place] Comment on above: Reference Range: <0.03 [...] diagnosis. Troponin T.cardiac [Mass/Vol] ug/L <0.03 ng/mL [place] Comment on above: Troponin T results c annot be compared to Troponin-I results. Troponin, High Sensitivity NOT REPORTED 0 - 22 ng/L [place] XR CHEST PORTABLEon 11-19-19 20 CHEST [...] of posterolateral left sixth and seventh ribs. [place] Incoming Radiant Results From [employer] - 11/19/2019 4:21 PM EDT CHEST 3 [...] Unchanged chest with no acute pulmonary disease. [place] Unchanged chest with no acute pulmonary disease. [place] STRESS TEST REPORTon 019 Samantha Martinez MD - 05/02/2019 10:05 AM EST [facility] [address] [id number] CARDIAC STRESS TEST PATIENT NAME: NORY DSOUZA : 1955 MED REC NO: [id number] ROOM: ACCOUNT NO: [id number] ADMIT DATE: 05/01/2019 PROVIDER: Samantha Martinez DATE [...] on 05/01/2019 at 5:24 p.m. SAMANTHA MARTINEZ BRYAN/JESSICA_ALMAIT Doc#: Unknown CC: Doug Arteaga [place] Otheron 05-01-2019 Radiology exam is complete. No Radiologist dictation. Please follow up with ordering provider. [place] Basic Metabolic Panel w/ Ref pia to MG 04-04-2019 Anion gap [Moles/Vol] 13 mmol/L 9 - 17 mmol/L [place] Bun/Cre Ratio 13 [place] Calcium [Mass/Vol] 9.5 mg/dL 8.6 - 10. 4 mg/dL [place] Chloride [Moles/Vol] 103 mmol/L 98 - 10 7 mmol/L [place] CO2 [Moles/Vol] 22 mmol/L 20 - 31 mmol/L [place] Creatinine [Mass/Vol] 0.91 mg/dL 0.7 - 1.2 mg/dL [place] GFR >60 >60 mL/min [place] GFR Non- >60 >60 mL/min [place] GFR/1.73 sq M predicted among non-blacks MDRD (S/P/Bld) [Vol rate/Area] NOT REPORTED [place] GFR/1.73 sq M predicted among non-blacks MDRD (S/P/Bld) [Vol rate/Area] [place] Comment on above: Average GFR for 60-6 9 years old: 85 mL/min/1.73sq m Chronic Kidney Disease: <60 mL/min/1.73sq m Kidney failure: <15 mL/min/1.73sq m eGFR calculated using average adult body mass. Additional eGFR calculator available at: http://www.[employer].com/multiple_crcl_2012.htm Glucose [Mass/Vol] 100 mg/dL High 70 - 99 mg/dL [place] Interpretation and review of laboratory results Abnormal [place] Potassium [Moles/Vol] 4.4 mmol/L 3.7 - 5.3 mmol/L [place] Sodium [Moles/Vol] 138 mmol/L 135 - 144 mmol/L [place] Urea nitrogen [Mass/Vol] 12 mg/dL 8 - 23 mg/dL [place] Brain Natriuretic Peptideon 04-04-2019 Natriuretic peptide B (Bld) [Mass/Vol] 188 pg/mL <300 [place] Comment on above: Pro-BNP results jackelin ot be compared to BNP results. Natriuretic peptide B (Bld) [Mass/Vol] Pro-BNP Reference Range: [place] Comment on above: Rule Out: <300 Horn Zone: Age <50 300-450 Age 50-75 300-900 Age >75 300-1800 Usually represents mild to moderate HF but other cardiopulmonary causes cannot be ruled out. Rule In: Age <50 >450 Age 50-75 >900 Age >75 >1800 CBC Auto Differentialon Basophils (Bld) [#/Vol] 0.00 10*3/uL [place] Basophils/100 WBC (Bld) 0 % 0 - 2 % [place] Differential Type YES [place] Eosinophils (Bld) [#/Vol] 0.00 10*3/uL [place] Eosinophils/100 WBC (Bld) 0 % 0 - 5 % [place] Erythrocyte distribution width (RBC) [Ratio] 14.1 % 12.1 - 15.2 % [place] Hematocrit (Bld) [Volume fraction] 43.4 % 41 - 53 % [place] Hemoglobin (Bld) [Mass/Vol] 14.6 g/dL 13.5 - 17.5 g/dL [place] Interpretation and review of laboratory results Abnormal [place] Lymphocytes (Bld) [#/Vol] 2.10 10*3/uL [place] Lymphocytes/100 WBC (Bld) 24 % 13 - 44 % [place] MCH (RBC) [Entitic mass] 33.9 pg 26 - 34 pg [place] MCHC (RBC) [Mass/Vol] 33.7 g/dL 31 - 37 g/dL [place] MCV (RBC) [Entitic vol] 100.5 fL High 80 - 100 fL [place] Monocytes (Bld) [#/Vol] 0.50 10*3/uL [place] Monocytes/100 WBC (Bld) 6 % 5 - 9 % [place] Platelet mean volume (Bld) [Entitic vol] NOT REPORTED 6 - 12 fL [place] Platelets (Bld) [#/Vol] 133 10*3/uL [place] Platelets (Bld) [#/Vol] NOT REPORTED [place] RBC (Bld) [#/Vol] 4.32 10*6/uL Low 4.5 - 5.9 m/uL [place] RBC morphology finding Nom (Bld) NOT REPORTED [place] Segmented neutrophils/100 WBC (Bld) 70 % 39 - 75 % [place] Segs Absolute 6.10 [place] WBC (Bld) [#/Vol] 8.8 10*3/uL [place] WBC (Bld) [#/Vol] NOT REPORTED per 100 WBC [place] WBC Morphology NOT REPORTED [place] Otheron 04-04-2019 Immature granulocytes (Bld) [#/Vol] NOT REPORTED 0 % [place] Troponinon 04-04-2019 Troponin I.cardiac [Mass/Vol] [place] Comment on above: Reference Range: <0.03 [...] diagnosis. Troponin T.cardiac [Mass/Vol] ug/L <0.03 ng/mL [place] Comment on above: Troponin T results c annot be compared to Troponin-I results. Troponin, High Sensitivity NOT REPORTED 0 - 22 ng/L [place] Troponin I.cardiac [Mass/Vol] [place] Comment on above: Reference Range: <0.03 [...] diagnosis. Troponin T.cardiac [Mass/Vol] ug/L <0.03 ng/mL [place] Comment on above: Troponin T results c annot be compared to Troponin-I results. Troponin, High Sensitivity NOT REPORTED 0 - 22 ng/L [place] Vital Signs Date Time Vital Sign Value Performing Clinician Facility 05-16-2024 12:23-0500 Hourly Rounding Adilenefo OFELICIANOWU [facility] 05-16-2024 12:23-0500 Promise to Return Mbanefo [facility] 05-16-2024 11:23-0500 Hourly Rounding Mbanefo [facility] 05-16-2024 11:23-0500 Promise to Return Mbanefo OJUANJOKWU [facility] 05-16-2024 10:53-0500 Heart rate 77 /min Mbanefo [facility]JUKWU [facility] 05-16-2024 10:53-0500 SaO2% (BldA) [Mass fraction] 96 % Mbanefo [facility]ANJOKW[facility] 05-16-2024 10:53-0500 Respiratory rate 20 /min Mbanefo [facility]JUK[facility] 05-16-2024 10:52-0500 Body temperature 97.52 [degF] Mbanefo [facility] 05-16-2024 10:52-0500 Diastolic blood pressure 87 mm[Hg] Mbanefo [facility] 05-16-2024 10:52-0500 Mean blood pressure 102 mm[Hg] Mbanefo [facility] 05-16-2024 10:52-0500 Systolic blood pressure 134 mm[Hg] Mbanefo [facility]UK[facility] 05-16-2024 10:42-0500 Hourly Rounding Mbanefo [facility]UK[facility] 05-16-2024 10:42-0500 Promise to Return Mbanefo [facility]JUK[facility] 05-16-2024 07:22-0500 Heart rate 72 /min Mbanefo [facility] 05-16-2024 07:22-0500 SaO2% (BldA) [Mass fraction] 95 % Mbanefo [facility] 05-16-2024 07:22-0500 Respiratory rate 20 /min Mbanefo [facility] 05-16-2024 07:21-0500 Body temperature 97.34 [degF] Mbanefo [facility] 05-16-2024 07:20-0500 Diastolic blood pressure 90 mm[Hg] Mbanefo [facility] 05-16-2024 07:20-0500 Mean blood pressure 111 mm[Hg] Mbanefo [facility] 05-16-2024 07:20-0500 Systolic blood pressure 154 mm[Hg] Mbanefo [facility] 05-16-2024 04:00-0500 Body temperature 97.7 [degF] Mbanefo [facility] 05-16-2024 04:00-0500 Diastolic blood pressure 70 mm[Hg] Mbanefo [facility] 05-16-2024 04:00-0500 Heart rate 91 /min Mbanefo [facility] 05-16-2024 04:00-0500 Respiratory rate 19 /min Mbanefo [facility] 05-16-2024 04:00-0500 SaO2% (BldA) [Mass fraction] 94 % Mbanefo [facility] 05-16-2024 04:00-0500 Systolic blood pressure 135 mm[Hg] Mbanefo [facility]UK[facility] 05-15-2024 23:16-0500 Heart rate 64 /min Mbanefo [facility] 05-15-2024 23:16-0500 Respiratory rate 18 /min Mbanefo [facility] 05-15-2024 23:15-0500 Blood Pressure Location Mbanefo [facility]JUK[facility] 05-15-2024 23:15-0500 BP/Pulse Patient Position Mbanefo [facility]JUK[facility] 05-15-2024 23:15-0500 Mean blood pressure 107 mm[Hg] Mbanefo [facility] 05-15-2024 23:15-0500 Body temperature 97.88 [degF] Mbanefo [facility] 05-15-2024 19:00-0500 Body temperature 98.06 [degF] Mbanefo [facility] 05-15-2024 16:56-0500 Mean blood pressure 88 mm[Hg] Mbanefo [facility] 05-15-2024 16:56-0500 Respiratory rate 16 /min Mbanefo [facility] 05-15-2024 16:00-0500 Mean blood pressure 97 mm[Hg] Mbanefo [facility] 05-15-2024 15:12-0500 gluc 79 mg/dL Mbanefo [facility] 05-15-2024 15:05-0500 gluc 79 mg/dL Mbanefo [facility]JUK[facility] 10-17-2023 20:00-0400 Body height 170.2 cm [facility] 10-17-2023 20:00-0400 Body mass index (BMI) [Ratio] 36.65 kg/m2 [facility] 10-17-2023 20:00-0400 Body weight 106.14 kg Mwhz Schedule [facility] 04-21-2023 13:22-0500 Body temperature 98.06 [degF] Robson Cartwright [facility] 04-21-2023 13:22-0500 Diastolic blood pressure 74 mm[Hg] Robson Cartwright [facility] 04-21-2023 13:22-0500 Heart rate 68 /min Robson Cartwright [facility] 04-21-2023 13:22-0500 Respiratory rate 18 /min Robson Cartwright [facility] 04-21-2023 13:22-0500 SaO2% (BldA) [Mass fraction] 97 % Robson Cartwright [facility] 04-21-2023 13:22-0500 Systolic blood pressure 140 mm[Hg] Robson Cartwright [facility] 11-27-2022 19:00-0400 Diastolic blood pressure 78 mm[Hg] Grant Vazquez [facility] 11-27-2022 19:00-0400 Heart rate 62 /min Grant George [facility] 11-27-2022 19:00-0400 Mean blood pressure 92 mm[Hg] Grant George [facility] 11-27-2022 19:00-0400 Respiratory rate 18 /min Grant George [facility] 11-27-2022 19:00-0400 SaO2% (BldA) [Mass fraction] 98 % Grant George [facility] 11-27-2022 19:00-0400 Systolic blood pressure 120 mm[Hg] Grant George [facility] 11-27-2022 18:30-0400 Diastolic blood pressure 76 mm[Hg] Grant George [facility] 11-27-2022 18:30-0400 Heart rate 49 /min Grant George [facility] 11-27-2022 18:30-0400 Mean blood pressure 97 mm[Hg] Grant George [facility] 11-27-2022 18:30-0400 Respiratory rate 17 /min Grant George [facility] 11-27-2022 18:30-0400 SaO2% (BldA) [Mass fraction] 96 % Grant George [facility] 11-27-2022 18:30-0400 Systolic blood pressure 140 mm[Hg] Grant George [facility] 11-27-2022 18:00-0400 Diastolic blood pressure 93 mm[Hg] Grant George [facility] 11-27-2022 18:00-0400 Heart rate 60 /min Grant George [facility] 11-27-2022 18:00-0400 Mean blood pressure 101 mm[Hg] Grant George [facility] 11-27-2022 18:00-0400 SaO2% (BldA) [Mass fraction] 97 % Grant Geroge [facility] 11-27-2022 18:00-0400 Systolic blood pressure 116 mm[Hg] Grant George [facility] 11-27-2022 17:30-0400 Heart rate 90 /min Grant George [facility] 11-27-2022 16:21-0400 Body temperature 97.52 [degF] Grant George [facility] 11-27-2022 16:21-0400 Heart rate 71 /min Grant George [facility] 11-27-2022 16:21-0400 Respiratory rate 16 /min Grant George [facility] 05-16-2022 00:16-0500 Diastolic blood pressure 95 mm[Hg] Alec Александр [facility] 05-16-2022 00:16-0500 Heart rate 84 /min Alec Александр [facility] 05-16-2022 00:16-0500 Systolic blood pressure 134 mm[Hg] Alec Александр [facility] 05-16-2022 00:15-0500 Diastolic blood pressure 97 mm[Hg] Alec Александр [facility] 05-16-2022 00:15-0500 Heart rate 84 /min Alec Александр [facility] 05-16-2022 00:15-0500 Mean blood pressure 109 mm[Hg] Alec Александр [facility] 05-16-2022 00:15-0500 Respiratory rate 11 /min Alec Александр [facility] 05-16-2022 00:15-0500 SaO2% (BldA) [Mass fraction] 95 % Alec Александр [facility] 05-16-2022 00:15-0500 Systolic blood pressure 134 mm[Hg] Alec Александр [facility] 05-15-2022 21:42-0500 Diastolic blood pressure 99 mm[Hg] Alec Александр [facility] 05-15-2022 21:42-0500 Heart rate 80 /min Alec Александр [facility] 05-15-2022 21:42-0500 Systolic blood pressure 130 mm[Hg] Alec Александр [facility] 05-15-2022 21:37-0500 Hourly Rounding Alec Fountain [facility] 05-15-2022 21:37-0500 Promise to Return Alecjose Fountain [facility] 05-15-2022 21:36-0500 Heart rate 78 /min Alec Александр [facility] 05-15-2022 21:36-0500 Mean blood pressure 109 mm[Hg] Alec Александр [facility] 05-15-2022 21:36-0500 Respiratory rate 28 /min Alec Александр [facility] 05-15-2022 21:36-0500 SaO2% (BldA) [Mass fraction] 94 % Alec Александр [facility] 05-15-2022 20:48-0500 Heart rate 84 /min Alec Александр [facility] 05-15-2022 20:48-0500 Respiratory rate 24 /min Alec Александр [facility] 05-15-2022 20:48-0500 SaO2% (BldA) [Mass fraction] 96 % Alec Александр [facility] 05-15-2022 20:30-0500 Mean blood pressure 99 mm[Hg] Alec Александр [facility] 05-15-2022 19:47-0500 Body temperature 97.7 [degF] Alec Александр [facility] 05-15-2022 19:47-0500 Heart rate 79 /min Alec Александр [facility] 05-15-2022 19:47-0500 Respiratory rate 19 /min Alec Fountain [facility] 01-03-2022 01:23-0400 Nursing Progress Note Reason Other: discharge instructions given. pt verbalized understanding. sister picking pt up Miguelinan Shira [facility] 01-02-2022 22:55-0400 Body temperature 98.78 [degF] Kaitylinn Dokken [facility] 01-02-2022 22:55-0400 Diastolic blood pressure 76 mm[Hg] Kaitylinn Dokken [facility] 01-02-2022 22:55-0400 Heart rate 79 /min Miguelinan Dokken [facility] 01-02-2022 22:55-0400 Respiratory rate 18 /min Kaitylinn Dokken [facility] 01-02-2022 22:55-0400 SaO2% (BldA) [Mass fraction] 97 % Miguelinan Dokken [facility] 01-02-2022 22:55-0400 Systolic blood pressure 128 mm[Hg] Miguelinan Dokken [facility] 09-01-2021 13:20-0400 Diastolic blood pressure 83 mm[Hg] Juan A SCHAEFER [facility] 09-01-2021 13:20-0400 Heart rate 73 /min Juan A SCHAEFER [facility] 09-01-2021 13:20-0400 Systolic blood pressure 132 mm[Hg] Juan A SCHAEFER [facility] 09-01-2021 12:00-0400 Blood Pressure Location Juan A SILVANO [facility] 09-01-2021 12:00-0400 Body temperature 97.7 [degF] Juan A WALLSSLIN [facility] 09-01-2021 12:00-0400 Hourly Rounding Juan A WALLSSLIN [facility] 09-01-2021 12:00-0400 Mean blood pressure 99 mm[Hg] Juan Aalex WALLSSLIN [facility] 09-01-2021 12:00-0400 SaO2% (BldA) [Mass fraction] 97 % Juan A WALLSSLIN [facility] 09-01-2021 11:00-0400 Promise to Return Juan Aalex TOLIN [facility] 09-01-2021 08:44-0400 Diastolic blood pressure 85 mm[Hg] Juan Alaex [facility]ALLSSLIN [facility] 09-01-2021 08:44-0400 Heart rate 61 /min Juan A WALLSSLIN [facility] 09-01-2021 08:44-0400 Systolic blood pressure 147 mm[Hg] Juan Aalex [facility]ALLSSLIN [facility] 09-01-2021 08:00-0400 Blood Pressure Location Juan Aalex [facility]IN [facility] 09-01-2021 08:00-0400 Mean blood pressure 106 mm[Hg] Juan Aalex [facility]ALLSSLIN [facility] 09-01-2021 08:00-0400 SaO2% (BldA) [Mass fraction] 99 % Juan A WALLSSLIN [facility] 08-31-2021 15:40-0400 Body temperature 97.52 [degF] Juan A WALLSSLIN [facility] 08-31-2021 15:40-0400 Heart rate 71 /min Juan Aalex [facility] 08-31-2021 15:40-0400 Mean blood pressure 96 mm[Hg] Juan Aalex [facility]SSLIN [facility] 08-31-2021 15:40-0400 SaO2% (BldA) [Mass fraction] 99 % Juan Aalex [facility] 08-31-2021 14:00-0400 Heart rate 68 /min Juan Aalex [facility] 08-31-2021 12:38-0400 Heart rate 78 /min Juan Aalex [facility]SSLIN [facility] 08-31-2021 12:38-0400 Mean blood pressure 103 mm[Hg] Juan Aalex WALLSSLIN [facility] 08-31-2021 12:38-0400 Respiratory rate 16 /min Juan Aalex [facility]ALLSSLIN [facility] 08-31-2021 07:44-0400 Respiratory rate 18 /min Juan Aalex WALLSSLIN [facility] 08-31-2021 03:05-0400 Respiratory rate 16 /min Juan Aalex WALLSSLIN [facility] 08-30-2021 16:25-0400 Blood Pressure Location Juan Aalex WALLSSLIN [facility] 08-30-2021 16:25-0400 BP/Pulse Patient Position Juan Aalex WALLSSLIN [facility] 08-30-2021 16:25-0400 Mean blood pressure 83 mm[Hg] Juan Aalex WALLSSLIN [facility] 08-30-2021 11:44-0400 BP/Pulse Patient Position Juan A SCHAEFER [facility] 08-30-2021 11:44-0400 Mean blood pressure 88 mm[Hg] Juan A SCHAEFER [facility] 08-30-2021 08:59-0400 BP/Pulse Patient Position Juan A SCHAEFER [facility] 08-30-2021 04:15-0400 Heart rate 86 /min Juan A SCHAEFER [facility] 08-30-2021 02:30-0400 Nursing Progress Note Reason Other: Resting on cart, resp even and non labored, skin pink warm and dry, Updated on POC, call light in reach. Juan A SCHAEFER [facility] 08-30-2021 02:30-0400 Respiratory rate 11 /min Juan A SCHAEFER [facility] 08-30-2021 01:27-0400 Heart rate 82 /min Juan A SCHAEFER [facility] 06-02-2020 15:20-0500 BP Diastolic 68 mm[Hg] [facility] 06-02-2020 15:20-0500 BP Systolic 120 mm[Hg] [facility] 06-02-2020 15:20-0500 Pulse (Heart Rate) 55 /min [facility] 06-02-2020 15:20-0500 Pulse Oximetry 100 % [facility] 06-02-2020 15:20-0500 Respiratory Rate 18 /min [facility] 06-02-2020 13:10-0500 BMI (Body Mass Index) 32.93 kg/m2 [facility] 06-02-2020 13:10-0500 Body Temperature 97.59 [degF] [facility] 06-02-2020 13:10-0500 Body weight 92.53 kg [facility] 01-19-2020 16:30-0400 Pulse (Heart Rate) 66 /min Hardeep Merino [facility], [place] 01-19-2020 16:30-0400 Pulse Oximetry 97 % [facility], [place] 01-19-2020 16:30-0400 Respiratory Rate 15 /min Hardeep Merino [facility] 01-19-2020 15:23-0400 BMI (Body Mass Index) 30.47 kg/m2 [facility] 01-19-2020 15:23-0400 Body Temperature 98.29 [degF] [facility] 01-19-2020 15:23-0400 Body weight 85.64 kg Hardeep Merino [facility] 01-19-2020 15:23-0400 BP Diastolic 83 mm[Hg] Hardeep Merino [facility] 01-19-2020 15:23-0400 BP Systolic 143 mm[Hg] Hardeep Merino [facility] 01-14-2020 16:51-0400 BP Diastolic 78 mm[Hg] [facility] 01-14-2020 16:51-0400 BP Systolic 118 mm[Hg] [facility] 01-14-2020 16:51-0400 Pulse (Heart Rate) 65 /min [facility] 01-14-2020 16:51-0400 Pulse Oximetry 99 % [facility] 01-14-2020 16:51-0400 Respiratory Rate 14 /min [facility] 01-14-2020 13:48-0400 BMI (Body Mass Index) 30.47 kg/m2 [facility] 01-14-2020 13:48-0400 Body Temperature 98.1 [degF] [facility] 01-14-2020 13:48-0400 Body weight 85.64 kg [facility] 01-14-2020 13:48-0400 Height 167.6 cm [facility] 11-19-2019 17:35-0400 BP Diastolic 77 mm[Hg] [facility], [place] 11-19-2019 17:35-0400 BP Systolic 111 mm[Hg] [facility] 11-19-2019 17:35-0400 Pulse (Heart Rate) 67 /min [facility] 11-19-2019 17:35-0400 Pulse Oximetry 98 % [facility] 11-19-2019 17:35-0400 Respiratory Rate 17 /min [facility] 11-19-2019 15:40-0400 BMI (Body Mass Index) 31.34 kg/m2 [facility] 11-19-2019 15:40-0400 Body Temperature 98.4 [degF] [facility] 11-19-2019 15:40-0400 Body weight 90.77 kg [facility] 11-19-2019 15:40-0400 Height 170.2 cm [facility] 04-04-2019 17:18-0500 BP Diastolic 69 mm[Hg] [facility], [place] 04-04-2019 17:18-0500 BP Systolic 110 mm[Hg] [facility] 04-04-2019 17:18-0500 Pulse (Heart Rate) 65 /min [facility], [place] 04-04-2019 17:18-0500 Pulse Oximetry 99 % [facility], [place] 04-04-2019 17:18-0500 Respiratory Rate 17 /min [facility], [place] 04-04-2019 16:14-0500 BMI (Body Mass Index) 33.89 kg/m2 [facility], [place] 04-04-2019 16:14-0500 Body weight 95.25 kg Siomara Mejia [facility], [place] 04-04-2019 16:14-0500 Height 167.6 cm Siomara Mejia [facility] 04-04-2019 [id number] Body Temperature 97.9 [degF] Siomara Mejia [facility] [place] Encounters Encounter Date Encounter Type Care Provider Facility Start: 05-15-2024 End: 05-16-2024 ambulatory Zunilda EIDWU Facility:[facility] [place] [facility] Start: 05-15-2024 Emergency department patient visit Robson Cartwright Facility:[facility] [place] [facility] Start: 05-15-2024 End: 05-16-2024 Observation Zunilda CHACON [facility] Start: 03-23-2024 End: 03-25-2024 ambulatory [facility] Start: 03-23-2024 End: 03-25-2024 Subsequent hospital visit by physician Doug Arteaga MD [facility]: [facility] Comment on above: Leg edema, left Start: 11-16-2023 End: 11-16-2023 ambulatory [facility] Start: 11-02-2023 End: 11-04-2023 ambulatory [facility] Start: 11-02-2023 End: 11-04-2023 Subsequent hospital visit by physician Doug Arteaga MD Work Phone: [facility] Scan Comment on above: Personal history of tobacco use Screening for AAA (a bdominal aortic aneurysm) Start: 10-17-2023 End: 10-17-2023 ambulatory DOUG [facility] Start: 10-17-2023 End: 10-17-2023 Subsequent hospital visit by physician [facility] Comment on above: Excessive daytime sl eepiness; Other sleep apnea Start: 09-30-2023 End: 09-30-2023 ambulatory SIOMARA BAEZA Not Available Start: 06-28-2023 End: 06-30-2023 ambulatory [facility] Start: 05-12-2023 End: 05-14-2023 ambulatory [facility] Start: 04-28-2023 End: 04-28-2023 Patient encounter procedure [place] Rasheeda [facility] Start: 04-21-2023 End: 04-21-2023 Emergency department patient visit Robson Cartwright [facility] Start: 11-27-2022 End: 11-27-2022 Emergency department patient visit Grant Vazquez [facility] Start: 10-11-2022 End: 10-12-[address] DOCTOR BAI Facility:[facility] Start: 06-26-2022 End: 06-26-[address] VIDYA SAMUEL . Facility:[facility] Start: 05-15-2022 End: 05-16-2022 Emergency department patient visit Alec Fountain [facility] Start: 02-11-2022 End: 02-11-[address] VIDYA SAMUEL . Facility:[facility] Start: 01-02-2022 End: 01-03-2022 Emergency department patient visit Jose Daniel Silva [facility] Start: 08-30-2021 End: 09-01-2021 Observation Juan A SCHAEFER [facility] Start: 03-05-2021 End: 03-05-2021 Subsequent hospital visit by physician Doug Arteaga MD Work Phone: [facility] Comment on above: Screening PSA (prost ate specific antigen) Start: 02-16-2021 End: 02-16-2021 Subsequent hospital visit by physician Doug Arteaga MD Work Phone: [facility] Comment on above: Hypercholesteremia; Essential hypertension Start: 06-02-2020 End: 06-02-2020 Emergency department patient visit Pan Barragan Work Phone: [facility] Comment on above: Diplopia (Primary Dx [...] End: 01-19-2020 Emergency department patient visit Hardeep Merino Work Phone: [facility] Comment on above: Arm paresthesia, rig ht (Primary Dx) Start: 01-14-2020 End: 01-14-2020 Emergency department patient visit Pan Barragan Work Phone: [facility] Comment on above: Palpitations (Primar y Dx) Start: 12-03-2019 End: 12-03-2019 Subsequent hospital visit by physician Dashawn Ekg [facility] Comment on above: Palpitations Hypercholesteremia; Essential hypertension Start: 11-19-2019 End: 11-19-2019 Emergency department patient visit Devin Lui Work Phone: [facility] Comment on above: Tachycardia (Primary Dx) Start: 07-30-2019 End: 07-30-2019 Subsequent hospital visit by physician Doug Arteaga [facility] Start: 06-07-2019 End: 06-07-2019 Subsequent hospital visit by physician Chalino Ekg [facility] Comment on above: Palpitations Start: 05-02-2019 End: 05-02-2019 Subsequent hospital visit by physician Doug Arteaga [facility] Comment on above: Burning with urinati on Start: 05-01-2019 End: 05-03-2019 Subsequent hospital visit by physician [facility] Comment on above: Arrived Start: 04-04-2019 End: 04-04-2019 Subsequent hospital visit by physician Doug Arteaga [facility] Start: 04-04-2019 End: 04-04-2019 Emergency department patient visit Siomara Mejai Work Phone: [facility] Comment on above: Palpitations (Primar y Dx) Start: 05-12-2017 Refill Kati L. Matilde cesar [employer] Work Phone: [facility] Comment on above: Medication Refill Start: 04-17-2017 Refill Kati L. Matilde cesar [employer] Work Phone: [facility] Comment on above: Medication Refill Procedures Date Procedure Procedure Detail Performing Clinician Start: 03-23-2024 Dup-scan xtr veins unilateral/limited study Doug Arteaga MD Work Phone: Start: 11-02-2023 CT Chest for screening Doug Arteaga MD Work Phone: Start: 11-02-2023 Us abdominal aorta r eal time screen study aaa Doug Arteaga MD Work Phone: Start: 10-11-[address] VIDYA KOENIG . Comment on above: Performed By: #### P [facility] #### [facility] [address] [place] [address] Dr. Rufina Ramirez Start: 03-05-2021 PSA screening [...] Work Phone: Start: 12-03-2019 Lipid panel Demetrius hernandez Work Phone: Start: 12-03-2019 PATIENT FASTING? Demetrius Jimenez Work Phone: Start: 11-19-2019 Assay of troponin quantitative Devin Lui Work Phone: Start: 11-19-2019 Radiologic exam ches t single view Devin Lui Work Phone: Start: 11-19-2019 Ecg routine ecg w/le ast 12 lds w/i&r Devin Lui Work Phone: Start: 11-19-2019 Assay of troponin quantitative Devin Lui Work Phone: Start: 11-19-2019 Blood count complete auto&auto difrntl wbc Devin Lui Work Phone: Start: 11-19-2019 Fibrin dgradj produc ts d-dimer quantitative Devin Lui Work Phone: Start: 11-19-2019 Natriuretic peptide Pra edelmira Lui Work Phone: Start: 11-19-2019 Prothrombin time Prasha nt Sania Work Phone: Start: 11-19-2019 Thromboplastin time partial plasma/whole blood Devin Lui Work Phone: Start: 11-19-2019 INITIATE OXYGEN THER APY PROTOCOL Devin Lui Work Phone: Start: 05-02-2019 STRESS TEST REPORT [...] Work Phone: Start: 04-04-2019 Natriuretic peptide Chr jason Mejia Work Phone: Start: 04-04-2019 Ecg routine ecg w/le ast 12 lds w/i&r Siomara Mejia Work Phone: Start: 02-27-2010 Repair of umbilical hernia Juan A SCHAEFER Start: 05-30-2008 lump removal Juan A MARTECOLT Start: 05-30-2004 Closed fracture of f oot (disorder) Juan A WALLSSLIN Start: 05-30-2004 Colonoscopy Juan A JF YOHAN 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) Juan A SCHAEFER Comment on above: 2006 Plan of Treatment Date Care Activity Detail Author Start: 11-16-2024 Annual Wellness Visi t (Medicare) Annual Well[facility]icare[facility] Start: 11-15-2024 Depression Screen [facility] Start: 11-01-2024 Screening for malign ant [facility]oplasm [facility] Start: 06-25-2024 Depression Screen [facility] Start: 02-12-2024 DTaP/Tdap/Td vaccine (2 - Td or Tdap) DTaP/Tdap/Td vaccine (2 - Td or Tdap) [facility] Start: 02-12-2024 DTaP/Tdap/Td vaccine (2 - Td) DTaP/Tdap/Td vaccine (2 - Td) [facility] [place] Start: 02-12-2024 Tetanus vaccination Tetanus: Every 1 0yrs [facility] Start: 01-29-2024 COVID-19 Vaccine ( season) COVID-19 Vaccine ( season) [facility] Start: 12-29-2023 Influenza vaccination Flu vaccine (# 1) [facility] Start: 11-16-2023 End: 11-16-2023 Patient encounter procedure 11/16/2023 10:20 AM EDT Office Visit [address] [id number] Doug Arteaga MD [address] [place] [id number] HCC - 6 months (around 11/01/2023) for HTN, Hyperlipidemia, gerd. [facility] Comment on above: HCC - 6 months (arou nd 11/01/2023) for HTN, Hyperlipidemia, gerd. Start: 11-01-2023 End: 11-01-2023 Patient encounter procedure 11/01/2023 10:20 AM EDT Office Visit [address] [address] Doug Arteaga MD [address] [place] [id number] HCC - 6 months (around 11/01/2023) for HTN, Hyperlipidemia, gerd. [facility] Comment on above: HCC - 6 months (arou nd 11/01/2023) for HTN, Hyperlipidemia, gerd. Start: 10-29-2023 Annual Wellness Visi t (Medicare) Annual Wellness Visit (Medicare) [facility] Start: 10-29-2023 Screening for malign ant neoplasm of colon [facility] Start: 10-12-2023 Lipid panel Lipids [facility] Start: 01-28-2023 COVID-19 Vaccine ( season) COVID-19 Vaccine () [facility] Start: 02-16-2022 Lipid panel Lipid screen [facility] Work Phone: Start: 01-28-2022 Influenza vaccination Sequenti al Influenza Vaccine (#1) [facility] Start: 09-04-2021 Annual Wellness Visi t (AWV) Annual Wellness Visit (AWV) [facility] [employer] Phone: Start: 09-03-2021 End: 09-03-2021 Patient encounter procedure 09/03/2021 Office Visit Family Doug Marie MD [address] [place] [address] [facility] Start: 03-05-2021 End: 03-05-2021 Patient encounter procedure 03/05/2021 Office Visit Doug Inman MD [address] [place] [address] [facility] Start: 01-28-2021 Influenza vaccination Flu vaccine (# 1) [facility] [employer] Phone: Start: 12-02-2020 Lipid panel Lipid screen [facility] [place] Start: 08-25-2020 End: 08-25-2020 Office Visit [facility] Start: 04-28-2020 End: 04-28-2020 Office Visit 04/28/2020 Office Visit Cardiology Demetrius Jimenez MD [address] [place] [address] [facility] Start: 04-19-2020 Lipid panel Lipid screen [place], [place] Start: 04-19-2020 Lipid screen Lipid screen [facility] [employer] Phone: Start: 04-16-2020 End: 04-16-2020 Office Visit 04/16/2020 Office Visit Doug Inman MD [address] [place] [address] [facility] Start: 01-29-2020 Influenza vaccination Flu vaccine (# 1) [place], [place] Start: 01-28-2020 End: 01-28-2020 Office Visit 01/28/2020 Office Visit Cardiology Demetrius Jimenez MD [address] [place], [place] [id number] [facility] Start: 12-25-2019 End: 12-25-2019 Office Visit 12/25/2019 Office Visit Cardiology Demetrius Jimenez MD [address] [place] [address] [facility] Start: 06-08-2019 Pneumococcal 65+ yea rs Vaccine (2 of 2 - PPSV23) Pneumococcal 65+ years Vaccine (2 of 2 - PPSV23) [place] Start: 06-05-2019 End: 06-05-2019 Office Visit 06/05/2019 Office Visit Family Medicine Doug Arteaga MD [address] [place] [address] [facility] Start: 2019 Lipid screen Lipid screen [place], [place] Start: 01-28-2019 Influenza vaccination Flu vaccine (# 1) [place] Start: 10-25-2018 Annual Wellness Visi t (AWV) Annual Wellness Visit (AWV) [place] Start: 2018 Abdominal aortic ane urysm screening AAA screen [facility] Start: 2018 Fall risk assessment Falls Risk Asse ssment [facility] Start: 04-09-2017 Colon Cancer Screen FIT/FOBT Colon Cancer Screen FIT/FOBT [place] Start: 04-09-2017 Screening for malign ant neoplasm of colon Colon Cancer Screen FIT/FOBT [place] Start: 2013 Respiratory Syncytia l Virus (RSV) or age 60 yrs+ (1 - 1-dose 60+ series) Respiratory Syncytial Virus (RSV) or age 60 yrs+ (1 - 1-dose 60+ series) [facility] Start: 04-22-2009 Pneumococcal Vaccine : Age 65+ (2 - PCV) Pneumococcal Vaccine: Age 65+ (2 - PCV) [facility] Start: [address] lung screening Low dose CT lung screening [place], [place] Start: 2008 Screening for malign ant neoplasm of lung Low dose CT lung screening [place], [place] Start: 2003 Administration of he rpes zoster vaccine Zoster Vaccines (1 of 2) [facility] Start: 2003 Screening for malign ant neoplasm of lung [facility] Start: 2003 Shingles Vaccine (1 of 2) Tabor gles Vaccine (1 of 2) [facility] Start: 1998 Screening for malign ant neoplasm of colon [facility] [employer] Start: 1993 Diabetes screen Diabetes screen [facility] [employer] Phone: Start: 1971 [facility] Start: 1965 Depression screening using PHQ-9 (Patient Health Questionnaire 9) score Depression Screening (PHQ-2/9) [facility] Start: 1956 History and physical examination, annual for health maintenance Wellness Visit [facility] Start: 1953 COVID-19 Vaccine (#1) COVID-19 Vacci ne (#1) [facility] Start: 1953 Hepatitis C screen Hepatitis C scree n [place], [place] Start: 1953 Hepatitis C screening Hepatitis C sc allison [place], [place] Start: 1953 Prostate specific an tigen measurement PSA Level [facility] Start: 1953 Screening for malign ant neoplasm of colon [facility] End: 05-02-2019 Bacteria identified Cx Nom (U) Urine Culture Microbiology Routine Burning with urination 1 Occurrences starting 05/02/2019 until 05/02/2019 [place] Comment on above: 1 Occurrences starti ng 05/02/2019 until 05/02/2019 Bacteria identified Cx Nom (U) Urine Culture Microbiology Routine Burning with urination 05/02/2019 3:00 PM [place], [place] End: 10-17-2023 Baseline Diagnostic Sleep Study Baseline Diagnostic Sleep Study Sleep Center Routine Excessive daytime sleepiness Other sleep apnea 1 Occurrences starting 10/17/2023 until 10/17/2023 [facility] Comment on above: 1 Occurrences starti ng 10/17/2023 until 10/17/2023 End: 12-03-2019 Cardiac event monitor Cardiac event monitor Cardiac Services Routine Palpitations 1 Occurrences starting 12/03/2019 until 12/03/2019 [place] Comment on above: 1 Occurrences starti ng 12/03/2019 until 12/03/2019 End: 06-07-2019 Cardiac event monitor Cardiac event monitor Cardiac Services Routine Palpitations 1 Occurrences starting 06/07/2019 until 06/07/2019 [facility]: Comment on above: 1 Occurrences starti ng 06/07/2019 until 06/07/2019 End: 03-06-2020 Dermatology Pathology Dermatology Pathology Lab Routine Once for 1 Occurrences starting 03/06/2020 until 03/06/2020 [place] Comment on above: Once for 1 Occurrenc es starting 03/06/2020 until 03/06/2020 EKG 12 Lead [facility] [place] End: 04-04-2019 Holter monitor 48 hour Holter monitor 48 hour Cardiac Services Routine One Time for 1 Occurrences starting 04/04/2019 until 04/04/2019 [place] Comment on above: One Time for 1 Occur rences starting 04/04/2019 until 04/04/2019 End: 04-04-2020 Holter Monitor 48 Hour Holter Monitor 48 Hour Cardiac Services Routine Palpitations 1 Occurrences starting 04/04/2019 until 04/04/2020 [place] Comment on above: 1 Occurrences starti ng 04/04/2019 until 04/04/2020 Initiate Oxygen Ther apy Protocol Initiate Oxygen Therapy Protocol Respiratory Care Routine Daily until discontinued starting 11/19/2019, 2 completed [place] Comment on above: Daily until disconti nued starting 11/19/2019, 2 completed End: 07-30-2019 PSA, free PSA, free Lab Routine Once for 1 Occurrences starting 07/30/2019 until 07/30/2019 [place] Comment on above: Once for 1 Occurrenc es starting 07/30/2019 until 07/30/2019 PSA, free PSA, free Lab Ro utine 07/30/2019 1:01 PM EST [place] End: 04-09-2020 Surgical Pathology Surgical Pathology Lab Routine Skin lesion of left arm Squamous cell cancer of skin of forearm, left 1 Occurrences starting 04/09/2020 until 04/09/2020 [place] Comment on above: 1 Occurrences starti ng 04/09/2020 until 04/09/2020 End: 11-19-2019 THYROID PROF W/ TSH THYROID PROF W/ TSH Lab Routine One Time for 1 Occurrences starting 11/19/2019 until 11/19/2019 [place] Comment on above: One Time for 1 Occur rences starting 11/19/2019 until 11/19/2019 End: 11-19-2019 Urinalysis, reflex to microscopic Urinalysis, reflex to microscopic Lab STAT One Time for 1 Occurrences starting 11/19/2019 until 11/19/2019 [place] Comment on above: One Time for 1 Occur rences starting 11/19/2019 until 11/19/2019 End: 04-04-2019 XR CHEST PORTABLE XR CHEST PORTABLE Imaging STAT Once for 1 Occurrences starting 04/04/2019 until 04/04/2019 [place] Comment on above: Once for 1 Occurrenc es starting 04/04/2019 until 04/04/2019 XR CHEST PORTABLE XR CHEST ALFREDO BLE Imaging STAT 04/04/2019 4:38 PM EST [place] Immunizations Immunization Date Immunization Notes Care Provider Caio sánchez 05-02-2023 Influenza, FLUAD, (a ge 65 y+), Adjuvanted, 0.5mL [facility] Schedule [facility] 04-27-2022 Influenza, FLUAD, (a ge 65 y+), Adjuvanted, 0.5mL [facility] Schedule [facility] 04-15-2021 COVID-19, PFIZER PUR PLE top, DILUTE for use, (age 12 y+), 30mcg/0.3mL [facility] Schedule [facility] 08-19-2020 COVID-19, Pfizer, PF , 30mcg/0.3mL Doug Arteaga MD Work Phone: [facility] 07-29-2020 COVID-19, Pfizer, PF , 30mcg/0.3mL Doug Arteaga MD Work Phone: [facility] 04-09-2020 influenza, injectabl e, quadrivalent, preservative free [facility] [place] 02-25-2020 pneumococcal polysaccharide vaccine, 23 valent Doug [place] 04-29-2019 influenza virus vacc ine, live, attenuated, for intranasal use Juan A WALLSSLIN [facility] 04-29-2019 influenza virus vacc ine, unspecified formulation Doug Arteaga MD Work Phone: [facility] 04-16-2019 influenza, injectabl e, quadrivalent, preservative free [facility] 06-08-2018 pneumococcal conjuga te vaccine, 13 valent Siomara Roberto [facility] 04-05-2018 influenza, injectabl e, quadrivalent, preservative free [facility] 04-09-2017 Influenza Vaccine, unspecified formulation [facility] [place] [place] 04-09-2017 influenza, injectabl e, quadrivalent, preservative free [facility] Schedule [facility] 03-19-2016 influenza, injectabl e, quadrivalent, preservative free [facility], [place] 03-19-2014 influenza virus vacc ine, unspecified formulation Siomara Mejia [facility] 02-11-2014 tetanus toxoid, redu brenda diphtheria toxoid, and acellular pertussis vaccine, adsorbed Siomara Roberto [facility] 04-22-2008 pneumococcal polysaccharide vaccine, 23 valent Siomara Mejia [place] Payers Date Payer Category Payer Medicare MEDICARE MEDICAR E PART A AND B xxxxxxxxxxx 2017-Present [phone] [address] [address] [place], [place] [id number] [id number] .[id number] 2017 Unknown [employer] [facility] xxxxxxxxxxxx 2017-Present [phone] [address] [place] [address] xxxxxxxxxxxx [id number].[id number] [employer] [employer] [id number] 2015-Present [phone] [address] [place] [address] 1.2.840.845741.1.13.385.2.7.3 .239505.315 1959 Medicare [id number] 1.2.840.474527.1.13.239.2.7.3 .323089.315 1959 Unknown [id number] 1.2.840.217742.1.13.239.2.7.3 .844826.315 1953 Unknown [id number] 2.16.840.1.921353.3.579.2.593 1953 Unknown [id number] 2.16.840.1.047571.3.579.2.593 1953 Unknown [id number] 2.16.840.1.463821.3.579.2.593 1953 Unknown [id number] 2.16.840.1.463165.3.579.2.125 9 1953 Unknown [id number] 2.16.840.1.183141.3.579.2.125 9 1953 Unknown [id number] 2.16.840.1.291449.3.579.2.174 1953 Unknown [id number] 2.16.840.1.472489.3.579.2.174 1953 Unknown [id number] 2.16.840.1.125822.3.579.2.174 1953 Unknown [id number] 2.16.840.1.947796.3.579.2.174 1953 Unknown [id number] 2.16.840.1.059316.3.579.2.174 1953 Unknown [id number] 2.16.840.1.828223.3.579.2.174 1953 Unknown [id number] 2.16.840.1.646059.3.579.2.174 1953 Unknown [id number] 2.16.840.1.211084.3.579.2.174 1953 Unknown [id number] 2.16.840.1.989263.3.579.2.174 1953 Unknown [id number] 2.16.840.1.692284.3.579.2.174 1953 Unknown [id number] 2.16.840.1.466184.3.579.2.727 1953 Unknown [id number] 2.16.840.1.376578.3.579.2.727 1953 Unknown [id number] 2.16.840.1.569639.3.579.2.727 1953 Unknown [id number] 2.16.840.1.298740.3.579.2.727 1953 Unknown [id number] 2.16.840.1.115694.3.579.2.727 1953 Unknown [id number] 2.16.840.1.967649.3.579.2.727 1953 Unknown [id number] 2.16.840.1.830908.3.579.2.727 Social History Date Type Detail Facility Start: 04-04-2019 End: 11-16-2023 Tobacco smoking status INIS Current every day smoker [facility] History of tobacco use Cigarette Smoker [place] Start: 04-04-2019 End: 12-14-2022 Cigarettes smoked current (pack per day) - Reported SONYA RICHARD [facility] Start: 04-04-2019 End: 12-14-2022 Alcohol intake No [place], [place] Start: 1955 Sex Assigned At Not on file [place] Start: 04-16-2019 End: 03-21-2024 Alcohol intake Current non-drinker of alcohol (finding) [place] Exposure to SARS-CoV -2 (event) Unable to assess [place] Start: 01-14-2020 End: 11-16-2023 Tobacco use and exposure Never used [place] Exposure to SARS-CoV -2 (event) Not sure [place] Start: 02-25-2020 End: 03-05-2021 History SDOH Financial 5 [place] Start: 02-25-2020 End: 03-05-2021 History SDOH Food Worry 1 [place] Start: 05-08-2019 Tobacco smoking status Light t obacco smoker (finding) [facility] How often to you hav e a drink containing alcohol? Never [employer] How many standard drinks containing alcohol do you have on a typical day? Patient does not drink [employer] (I/We) worried [facility] (my/our) food would run out before (I/we) got money to buy more. Never true [employer] At any time in the p ast 12 months, were you homeless or living in longterm [including now]? No [facility] History of tobacco use Passive smoker [facility] How hard is it for y ou to pay for the very basics like food, housing, medical care, and heating Not very hard [facility] Functional Status Date Assessment Result Facility 05-15-2024 Functional Status N/A [facility] 05-15-2024 Functional Status [facility] 04-21-2023 Functional Status N/A [facility] 11-27-2022 Functional Status N/A [facility] 05-15-2022 Functional Status N/A [facility] 01-02-2022 Functional Status N/A [facility] Clinical Notes 04-18-2017 to 05-16-2024 Note Date & Type Note Facility 05-16-2024 Note Echocardiology Procedure Exam Date/Time Accession # Ordering Dr. Echo w/ Saline Bubbles 05/16/2024 10:10 [facility] [id number] Vilma Gaines CPT code [id number] Reason for Exam (Echo w/ Saline Bubbles) CVA Report [facility] [address] [place] [address] Adult Echocardiogram Report Name: NORY DSOUZA Study Date: 05/16/2024 09:04 AM BP: 135/70 mmHg Patient Location: [address] [place] [address] Bed(s) [facility] [place] : 1955 Gender: Male Height: 65.5 in Age: 69 yrs Ethnicity: [facility] Weight: 238 lb Reason For Study: CVA BSA: 2.1 m2 History: HTN,Smoker-Yes,SVT Ordering Physician: Melinda^Oliverio Performed By: Breanna Garcia, FADI, RVT Interpretation Summary Technically difficult study. Bubble study is negative for intracardiac shunting at rest and with Valsalva maneuver The left ventricle is grossly normal. The left ventricular ejection fraction is normal. Ejection Fraction = 65-70%. Mild thickeing of aortic valve. No significant valve stenosis or regurgitation. No pericardial effusion. Procedure A complete two-dimensional transthoracic echocardiogram was performed using contrast (2D, M-mode, spectral and color flow Doppler). Agitated saline bubble study was performed. Left Ventricle The left ventricle is grossly normal. There is normal left ventricular wall thickness. The left ventricular ejection Echocardiology Report fraction is normal. Ejection Fraction = 65-70%. No obvious regional wall motion abnormalities noted. Normal diastolic function. Left Atrium The left atrium is grossly normal. Bubble study is negative for intracardiac shunting at rest and with Valsalva maneuver. Right Atrium The right atrium is grossly normal. Right Ventricle The right ventricular systolic function is normal. Aortic Valve There is mild aortic valve thickening. No aortic regurgitation. There is no aortic stenosis. Mitral Valve The mitral valve is grossly normal. There is no mitral regurgitation noted. No mitral valve stenosis. Tricuspid Valve There is trace tricuspid regurgitation. Right ventricular systolic pressure is 14 mmHg. No evidence of tricuspid stenosis. Pulmonic Valve There is no pulmonic valve regurgitation. No evidence of stenosis. Effusion There is no pericardial effusion. MMode/2D Measurements & Calculations RVDd: 3.2 cm LVIDd: 4.3 cm FS: 26.3 % Ao root diam: 3.3 cm IVSd: 1.2 cm LVIDs: 3.2 cm EDV(Teich): 84.0 ml Ao root area: 8.4 cm2 LVPWd: 1.1 cm ESV(Teich): 40.5 ml LA dimension: 4.1 cm EF(Teich): 51.8 % asc Aorta Diam: 3.4 cm LVOT diam: 2.3 cm LVLd ap4: 9.7 cm EDV(MOD-sp2): 150.0 ml LVOT area: 4.1 cm2 EDV(MOD-sp4): 174.0 ml ESV(MOD-sp2): 42.0 ml LVLs ap4: 7.9 cm EF(MOD-sp2): 72.0 % ESV(MOD-sp4): 38.7 ml EF(MOD-sp4): 77.8 % SV(MOD-sp4): 135.3 ml TAPSE: 2.6 cm Ao Sinus of Valsalva: 3.3 cm Ao Sinotubular Junction: 3.1 cm IVC Diam: 1.7 cm RVIDd/LVIDd: 0.74 EF (MOD-bp): 75.8 % Doppler Measurements & Calculations MV E max darien: 81.0 cm/sec MV dec time: 0.24 sec Ao V2 max: 201.0 cm/sec LV V1 max P.7 mmHg Echocardiology Report MV A max darien: 99.0 cm/sec Ao max P.2 mmHg LV V1 mean P.0 mmHg MV E/A: 0.82 Ao V2 mean: 141.0 cm/sec LV V1 max: 129.0 cm/sec Lat Peak E' Darien: 7.5 cm/sec Ao mean P.0 mmHg LV V1 mean: 84.8 cm/sec E/E' Lat: 10.8 Ao V2 VTI: 44.6 cm LV V1 VTI: 26.6 cm Med Peak E' Darien: 7.3 cm/sec SOTO(I,D): 2.4 cm2 E/E' Med: 11.1 SOTO(V,D): 2.6 cm2 SV(LVOT): 108.5 ml TR max darien: 227.0 cm/sec RAP systole: 3.0 mmHg AV VR: 0.64 TR max P.6 mmHg SOTO(VTI)/BSA_phl: 1.1 RVSP(TR): 23.6 mmHg FINAL REPORT Dictated: 05/16/2024 9:04 am Ernesto Sanders MD Signed (Electronic Signature): 05/16/2024 4:30 pm Signed by: Ernesto Sanders MD Transcribed by: JOSE Technologist: XIOMARA [facility] 05-16-2024 Hospital Discharg e instructions Patient Education 05/16/2024 12:29:39 Transient Ischemic Attack Transient Ischemic Attack A transient ischemic attack (TIA) happens when blood supply to the brain is blocked temporarily. A TIA causes stroke-like symptoms that go away quickly without causing any permanent damage. Having a TIA can be considered a warning sign for a stroke and should not be ignored. A person who has a TIA is at higher risk for a stroke. What are the causes? This condition is caused by a temporary blockage in an artery in the head or neck. This means the brain does not get the blood supply it needs. A blockage can be caused by: Fatty buildup in an artery in the head or neck (atherosclerosis). A blood clot traveling from the heart. An artery tear (dissection). Inflammation of an artery (vasculitis). Sometimes the cause is not known. What increases the risk? Certain factors make you more likely to develop this condition. Some of these are things you can change, including: Using products that contain nicotine or tobacco. Being inactive. Heavy alcohol use. Drug use, especially cocaine and methamphetamine. Medical conditions that may increase your risk include: High blood pressure (hypertension). High cholesterol. Diabetes. Heart disease (coronary artery disease). An irregular heartbeat, also called atrial fibrillation (AFib). Sickle cell disease. Blood clotting disorders (hypercoagulable state). Other risk factors include: Being over the age of 60. Being male. Obesity. Sleep problems such as sleep apnea. Family history of stroke. Previous history of blood clots, stroke, TIA, or heart attack. What are the signs or symptoms? Symptoms of a TIA are the same as those of a stroke. The symptoms develop suddenly, and then go away quickly. They may include: Dizziness, loss of balance and coordination, or trouble walking. Vision changes, such as double vision, blurred vision, or loss of vision. Weakness or numbness in your face, arm, or leg, especially on one side of your body. Trouble speaking, understanding speech, or both (aphasia). Nausea and vomiting. Severe headache. Confusion. If possible, note what time your symptoms started. Tell your health care provider. How is this diagnosed? This condition may be diagnosed based on: Your symptoms and medical history. A physical exam. Imaging tests, usually a CT scan or MRI of the brain. Blood tests. You may also have other tests, including: Electrocardiogram (ECG). Echocardiogram. Continuous heart monitoring. Carotid ultrasound. A scan of blood circulation in the brain (CT angiogram or MR angiogram). How is this treated? The goal of treatment is to reduce the risk for a stroke. Stroke prevention therapies may include: Changes to diet and lifestyle, such as being physically active and stopping smoking. Treating other health conditions, such as diabetes or AFib. Medicines to thin the blood (antiplatelets or anticoagulants). Blood pressure medicines. Medicines to reduce cholesterol. If testing shows a narrowing in the arteries to your brain, your health care provider may recommend a procedure, such as: Carotid endarterectomy. This is done to remove the blockage from your artery. Carotid angioplasty and stenting. This uses a small mesh tube (stent) to open or widen an artery in the neck. The stent helps keep the artery open by supporting the artery stout. Follow these instructions at home: Medicines Take mifa-sgu-unymfiu and prescription medicines only as told by your health care provider. If you were told to take a medicine to thin your blood, such as aspirin or an anticoagulant, use it exactly as told by your health care provider. ?Taking too much blood-thinning medicine can cause bleeding. Taking too little will not protect you against a stroke and other problems. Eating and drinking Eat 5 or more servings of fruits and vegetables each day. Follow guidelines from your health care provider about your diet. You may need to follow a certain diet to help manage risk factors for stroke. This may include: ?Eating a low-fat, low-salt diet. ?Choosing high-fiber foods. ?Limiting carbohydrates and sugar. If you drink alcohol: ?Limit how much [...] oz glass of hard liquor (44 mL). General instructions Maintain a healthy weight. Try to get at least 30 minutes of exercise on most days. Get treatment if you have sleep apnea. Do not use any products that contain nicotine or tobacco. These products include cigarettes, chewing tobacco, and vaping devices, such as e-cigarettes. If you need help quitting, ask your health care provider. Do not use illegal drugs. Keep all follow-up visits. Your health care provider will want to know if you have any more symptoms and to check blood labs if any medicines were prescribed. Where to find more information [place] [employer]: stroke.org Get help right away if: You have chest pain. You have fast or irregular heartbeats (palpitations). You have any symptoms of a stroke. BE FAST is an easy way to remember the main warning signs of a stroke. ?B - Balance. Signs are dizziness, sudden trouble walking, or loss of balance. ?E - Eyes. Signs are trouble seeing or a sudden change in vision. ?F - Face. Signs are sudden weakness or numbness of the face, or the face or eyelid drooping on one side. ?A - Arms. Signs are weakness or numbness in an arm. This happens suddenly and usually on one side of the body. ?S - Speech.Signs are sudden trouble speaking, slurred speech, or trouble understanding what people say. ?T - Time. Time to call emergency services. Write down what time symptoms started. You have other signs of a stroke, such as: ?A sudden, severe headache with no known cause. ?Nausea or vomiting. ?Seizure. These symptoms may be an emergency. Get help right away. Call 911. Do not wait to see if the symptoms will go away. Do not drive yourself to the hospital. This information is not intended to replace advice given to you by your health care provider. Make sure you discuss any questions you have with your health care provider. Document Revised: 10/29/2022 Document Reviewed: 10/29/2022 [employer] Patient Education 2023 Diasome. Follow Up Care 05/15/2024 14:53:10 With:Samantha Mccoy MD, NEU Address: [address] [place], [place] [id number]- Business (1) When:06/04/2024 13:40:00 Comments:Please, arrive 15 minutes early to do in patient paper work. With:DOUG DE LEONVINNY Address: [place] [address]- Business (1) When:5 to 7 days Comments:Office was closed for lunch. Patient needs to call to make hospital follow up appointment. [facility] 05-16-2024 Evaluation + Plan note Ext[place] from: Title:Consult Note-neurology Author:Roxana Uribe RN Date:05/16/24 ASSESSMENT: Sudden onset left hemibody sensory and motor symptoms concerning for TIA or acute ischemic stroke. Stroke risk factors include smoking, hyperlipidemia, hypertension. PLAN: 1. Aspirin 81 mg daily started 2. His home pravastatin will be intensified to atorvastatin 40 mg daily 3. He said he will not do MRI 4. CTA of head and neck 5. A1c pending 6. Lipids pending 7. Transthoracic echocardiogram pending 8. Barring any significant abnormalities on #4 and #7 then he probably should be able to be discharged today 1. TIA (transient ischemic attack) (G45.9: Transient cerebral ischemic attack, unspecified) 2. Hyperlipidemia (E78.5: Hyperlipidemia, unspecified) 3. HTN (hypertension) (I10: Essential (primary) hypertension) 4. GERD (gastroesophageal reflux disease) (K21.9: Gastro-esophageal reflux disease without esophagitis) 5. Smoker (F17.200: Nicotine dependence, unspecified, uncomplicated) Extracted from: Title:Admission H & P Author:Torito Gaines Date:05/15/24 1. TIA (transient ischemic a ttack) (G45.9: Transient cerebral ischemic attack, unspecified) - Adm observation - CT head neg - Hold HTN meds for permissive HTN x 24 hrs - MRI brain - C/S neurology - Start Aspirin daily once swallow screen is completed and a diet is ordered - Neuro checks per protocol - 2D Echo w/ bubble study 2. Hyperlipidemia (E78.5: Hyperlipidemia, unspecified) - Continue home statin once home med rec is completed. 3. HTN (hypertension) (I10: Essential (primary) hypertension) - Hold home HTN meds for now to allow permissive HTN 4. GERD (gastroesophageal reflux disease) (K21.9: Gastro-esophageal reflux disease without esophagitis) - Continue home PPI once home med rec is completed. 5. Smoker (F17.200: Nicotine dependence, unspecified, uncomplicated) - 50 pyh/1 ppd - nicoderm patch daily - complete tobacco cessation advised Orders: enoxaparin, 40 mg = 0.4 mL, Injection, SubCutaneous, Daily for 30 day(s), Stop date 06/15/24 8:59:00 EST, Routine, Start date 05/16/24 9:00:00 EST, 05/15/24 17:02:00 EST hydrALAZINE, 10 mg = 0.5 mL, Injection, IV Push, q6hr PRN Other (see comment), Routine, Start date 05/15/24 17:02:00 EST, 05/15/24 17:02:00 EST morphine, 2 mg = 1 mL, Injection, IV Push, q4hr PRN Pain for 5 day(s), Stop date 05/20/24 17:01:00 EST, Routine, Start date 05/15/24 17:02:00 EST, 05/15/24 17:02:00 EST nicotine, 21 mg, 1 patch(es), Patch-ER, TransDermal, Daily, Routine, Start date 05/16/24 9:00:00 EST ondansetron, 4 mg = 2 mL, Injection, IV Push, q6hr PRN Nausea, Routine, Start date 05/15/24 17:02:00 EST, 05/15/24 17:02:00 EST Activity As Tolerated Ambulate with Assistance Anti-Embolism Stocking Removal and Care Basic Metabolic Panel Below the Knee Intermittent Pneumatic Compression Device CBC w/ Auto Diff Communication Order Physician to Nursing Communication Order Physician to Nursing Communication Order Physician to Nursing Consult to Neurology Dysphagia Screen Echo w/ Saline Bubbles Intake and Output MRI Brain w/o Contrast Neurological Assessment Notify Provider Vital Signs Notify Provider Vital Signs Occupational Therapy Evaluate Patient, Develop a Plan of Care and Implement Plan Physical Therapy Evaluate Patient, Develop a Plan of Care and Implement Plan Precautions Stroke Quality Measures Vital Signs Weight Extracted from: Title:ED Note Author:Robson Cartwright DO Date: Brain TIA, (G45.9: Transient cerebral ischemic attack, unspecified)TIA (transient ischemic attack) Orders: BB Draw & Hold Cardiac Monitoring CBC w/ Auto Diff Communication Order Communication Order Comprehensive Metabolic Panel Continuous Pulse Oximetry CT Head or Brain w/o Contrast Dysphagia Screen ED Physician consult Hospitalist for continued care eGFR Extra Horn Tube NIH Stroke Scale NPO Diet Oxygen Protocol PT & PTT Rapid Response Form Routine Capillary Glucose POC Stroke Quality Measures Troponin 0 Hr. UA with Cult Rflx XR Chest Single View [facility] 12-18-2024 NoteConsultation Note Chief Complaint left side tingling Reason for Consultation Stroke History of Present Illness 69-year-old man. Smoker. Medical history includes hypertension, hyperlipidemia. He developed suddenonset of left-sided weakness and numbness/paresthesias yesterday, involving the face, upper extremity, lower extremity. Was dragging his left leg a bit. Mention feeling lightheaded at 1 point. A neighbor or acquaintance urged him to come in and get checked out. By the time he got to the emergency department his symptoms had essentially resolved. CT of the head nonacute. He said he attempted the MRI but could not get comfortable on his back and freaked out. Review of Systems GEN: No fevers or chills. CV/PULM: No chest pain. No shortness of breath. No palpitations. NEURO: No headaches. No loss of vision. No double vision. No dysphagia. No speech changes. No current focal weakness. No current sensory loss. Physical Exam Vitals & Measurements T: 36.3 ???C(Axillary) TMIN: 36.2 ???C(Oral) TMAX: 36.7 ???C(Oral) HR: 72(Monitored) RR: 20 BP: 154/90 SpO2: 95% HT: 167.64 cm WT: 107.8 kg GEN: General appearance normal. Well-kempt. No distress. No visualized deformities or trauma. CARDIO/VASC: Limbs without significant edema and appear well-perfused. PULM: Normal work of breathing. SKIN: Visualized skin is intact and without lesions aside from age-related findings. MS: Affect is normal. Patient is alert and generally oriented. Normal attention. LANG: Speech is fluent and non-dysarthric. EYES: Pupils equal/reactive/consensual. Ocular motility full. No pathologic nystagmus. CN: Facial sensation normal. Hearing acuity normal. Face without droop and with normal motor function. MOTOR: Muscle bulk normal. Muscle tone normal. Muscle strength normal. No tremors. SENSORY: Light touch normal. CEREBELLAR: No limb ataxia. Date/Time:05/16/24 0914 Level of Consciousness: Alert = 0 Current month and age: Answers both correctly = 0 Open and close eyes/regional guide release hand: Obeys both correctly = 0 Best gaze: Normal = 0 Visual field testing: No visual field loss = 0 Facial paresis: Normal symmetric movement = 0 Motor function left arm: Normal = 0 Motor function right arm: Normal = 0 Motor function left leg: Normal = 0 Motor function right leg: Normal = 0 Limb ataxia: No ataxia = 0 Sensory: Normal = 0 Best language: No aphasia = 0 Dysarthria: Normal articulation = 0 Extinction and inattention: Normal = 0 Total Score (severe deficit >22): 0 Notes: Assessment/Plan ASSESSMENT: Sudden onset left hemibody sensory and motor symptoms concerning for TIA or acute ischemic stroke. Stroke risk factors include smoking, hyperlipidemia, hypertension. PLAN: 1. Aspirin 81 mg daily started 2. His home pravastatin will be intensified to atorvastatin 40 mg daily 3. He said he will not do MRI 4. CTA of head and neck 5. A1c pending 6. Lipids pending 7. Transthoracic echocardiogram pending 8. Barring any significant abnormalities on #4 and #7 then he probably should be able to be discharged today 1. TIA (transient ischemic attack) (G45.9: Transient cerebral ischemic attack, unspecified) 2. Hyperlipidemia (E78.5: Hyperlipidemia, unspecified) 3. HTN (hypertension) (I10: Essential (primary) hypertension) 4. GERD (gastroesophageal reflux disease) (K21.9: Gastro-esophageal reflux disease without esophagitis) 5. 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 Medications Inpatient aspirin 81 mg Oral EC Tab, 81 mg= 1 tab(s), Oral, Daily dexamethasone 0.5 mg Tab, 0.5 mg= 1 tab(s), Oral, Daily enoxaparin 40 mg/0.4 mL SC Renita, 40 mg= 0.4 mL, SubCutaneous, Daily hydrALAZINE 20 mg/mL Inj, 10 mg= 0.5 mL, IV Push, q6hr, PRN morphine 2 mg/mL Inj, 2 mg= 1 mL, IV Push, q4hr, PRN Nicoderm C-Q 21 mg/24 hr Patch-ER, 21 mg= 1 patch(es), TransDermal, Daily Pantoprazole [address] Tab, 40 mg= 1 tab(s), Oral, Daily pravastatin 40 mg Tab, 40 mg= 1 tab(s), Oral, Bedtime Zofran 4 mg/2 mL Injection, 4 mg= 2 mL, IV Push, q6hr, PRN Home dexamethasone 0.5 mg oral tablet, 0.5 mg= 1 tab(s), Oral, Daily DilTIAZem (Eqv-Cardizem CD) 120 mg/24 hours oral capsule, extended release, See Instructions Lopressor 25 mg oral tablet, See Instructions (more content not included)... [facility]Result Comment: Electronically Signed By: Deysi Uribe RN\.br\Date and Time Signed: 05/16/24 09:32 EST\.br\Electronically Co-Signed By: Renan Clarke DO\.br\Date and Time Co- Signed: 05/16/24 09:46 [id number] NoteInterdisciplinary Note - PT PT evaluation completed with an AM-PAC six clicks score of . Pt. completes bed mobility and transfers at Mod I level. Pt. ambulates 64 ft. with FWW with supervision progressing to Mod I level. Pt.'s FWW height is too high, although he feels this is comfortable for him and he prefers this. No immediate PT needs at this time. 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 Recommend use of FWW at all times until further notice. [facility]12-17-[facility] NoteHistory and Physical Chief Complaint pt reports left sided weakness, numbness, and tingling around 1200 today. s/s have since resolved. denies blurry vision, speech changes, YOUNGER. hx of HTN, HLD. No thinners. Fell on tuesday but denies head injury or LOC. History of Present Illness This is a 69-year-old male patient with a past medical history significant for hypertension, hyperlipidemia, and GERD; who presented to the ED today, complaining of acute onset left-sided weakness and paresthesias. The patient describes that he was attempting to go out and get his mail when he had sudden onset of left-sided numbness including upper and lower extremities and the left cheek, accompanied by left-sided weakness making it nearly impossible to walk. He rested at home for couple of hours and then after talking to a friend, decided to present to the ED for further evaluation. At the time of arrival in the ED his symptoms had mostly resolved. Workup in the ED was mostly unremarkable. No significant lab abnormalities. Chest x-ray revealed noacute disease and a CT of the head revealed no acute findings. As the patient continued to have mild tongue deviation to the right on exam, he is being admitted in observation to the hospitalist service for further neurological workup for a TIA. At the time of my exam the patient is resting on the cart in the ED. He reports complete resolutionof his symptoms and notes that his symptoms only lasted for about 5 minutes . He reports that his left leg was dragging when he attempted to walk at the time of symptom onset. Although he noted paresthesia to his left cheek, he denies forehead lip or tongue involvement. He also felt a little lig htheaded . He denies vision changes or headache, denies chest pain, shortness of breath, or any other acute complaints other than above. No focal deficits were noted on exam. Review of Systems All systems reviewed and are negative except as noted in the HPI. Scoring Avila Fall Risk Score: 75 High (05/15/24) Physical Exam Vitals & Measurements T: 36.6 ???C(Oral) HR: 60(Monitored) RR: 16 BP: 122/71 SpO2: 97% HT: 168 cm WT: 109.6 kg General: alert, no acute distress Skin: warm, dry Head: no trauma, normocephalic Neck: Trachea midline, no adenopathy, no tenderness Eye: normal conjunctiva, sclera clear ENMT: oral mucosa moist Cardiovascular: regular rhythm, normal rate, normal peripheral perfusion Respiratory: Lungs expiratory wheezes-faints, scattered, respirations non labored Chest wall: no deformity. Gastrointestinal: soft, non distended, no tenderness, no guarding. Back: No tenderness, Normal ROM, Normal alignment. Extremities: no deformity, no trauma, chronic venous stasis changes w/ 2-3+ edema Neurological: oriented x 4, LOC appropriate for age, CN II-XII intact, motor strength equal & normal bilaterally, sensation equal & normal bilaterally, speech normal Psychiatric: cooperative, affect appropriate for age, normal judgement, normal psychiatric thoughts. Lab Results WBC: 5.1 E9/L (05/15/24 15:01:00) RBC: 3.8 E12/L Low (05/15/24 15:01:00) HGB: 13.3 gm/dL Low (05/15/24::00) Hct: 39.4 % (05/15/24 15::00) MCV: 103 fL High (05/15/24 15:01:00) MCH: 34.7 pg High (05/15/24::00) MCHC: 33.7 gm/dL (05/15/24 15:01:00) RDW: 14.8 % High (05/15/24 15:01:00) Platelet: 94 E9/L Low (05/15/24::00) MPV: 10.5 fL (05/15/24::00) Neutro Auto: 52.8 % (05/15/24 15::00) Lymph Auto: 29.8 % (05/15/24 15:01:00) [place] Auto: 16.6 % High (05/15/24 15:01:00) Eos Auto: 0.3 % (05/15/24::00) Basophil Auto: 0.5 % (05/15/24 15:01:00) Neutro Absolute: 2.7 E9/L (05/15/24:01:00) Lymph Absolute: 1.5 E9/L (05/15/24:01:00) [place] Absolute: 0.8 E9/L (05/15/24::00) Eos Absolute: 0 E9/L (05/15/24::00) Basophil Absolute: 0 E9/L (05/15/24::00) PT: 12.1 second(s) (05/15/24::00) INR: 1.08 (05/15/24::00) PTT: 29.6 second(s) (05/15/24::00) Glucose Lvl: 89 mg/dL (05/15/24::00) BUN: 17 mg/dL (05/15/2400) Creatinine: 0.9 mg/dL (05/15/24) eGFR: 91 mL/min/1.73 m2 (05/15/24:) BUN/Creat Ratio: 19 (05/15/24::) Sodium Lvl: 138 mmol/L (05/15/24) Potassium Lvl: 4.3 mmol/L (05/15/24::00) Chloride: 105 mmol/L (05/15/24::00) CO2: 29 mmol/L (05/15/24::00) AGAP: 8 mEq/L (05/15/24:) Calcium Lvl: 8.7 mg/dL Low (05/15/24::00) Alk Phos: 62 Int._Unit/L (05/15/24::00) ALT: 10 Int._Unit/L (05/15/24::00) AST: 17 Int._Unit/L (05/15/24::00) Total Protein: 6.8 gm/dL (05/15/24::00) Albumin Lvl: 4 gm/dL (05/15/24::00) Globulin: 2.8 gm/dL (05/15/24::00) A/G Ratio: 1.4 (05/15/24::00) Bili Total: 0.9 mg/dL (05/15/24 15:01:00) Troponin HS: 5.8 pg/mL Low (05/15/24 15:01:00) Glucose Cap: 79 mg/dL (05/15/24 15:04:00) POC Device SN: [id number] (05/15/24 15:04:00) POC User ID: [id number] (05/15/24 15:04:00) POC Username: LANNY (more content not included)...[facility] Comment on above:Result Comment: Electronically Signed By: Tim SPENCER, Vilma Duron\.br\Date and Time Signed: 05/15/2417:56 EST\.br\Electronically Co-Signed By: Zunilda CHACON MD\.br\Date and Time Co-Signed: 05/15/2419:06 [id number] History of Present illness Narrative* Lennie Nolan - 10/17/2023 8:15 PM EDT Patient arrived for sleep testing. Testing explained, all questions answered, pt voices understanding. [facility] Discharge instructions Patient Education 04/21/2023 13:48:58 Virgen Cyst Virgen Cyst A Virgen cyst, also called a popliteal cyst, is a growth that forms at the back of the knee. The cyst forms when the fluid-filled sac (bursa) that cushions the knee joint becomes enlarged. What are the causes? In most cases, a Virgen cyst results from another knee problem that causes swelling inside the knee.This makes the fluid inside the knee joint [...] knee is straightened. If the lump is painful,the pain may come and go. The knee [...] a needle (aspiration). You may also get aninjection of a medicine that reduces swelling (steroid). [...] your health care provider. General instructions Take bkwt-jel-scwycuz and prescription medicines only as told by [...] provider. Document Revised: 09/28/2019 Document Reviewed: 09/28/2019 [employer] Patient Education 2022 Diasome. 04/21/2023 13:48:58 Acute Pain, Adult Acute Pain, Adult Acute pain is a type of sudden pain that may last for just a few days or for as long as six months.It is often related to an illness, injury, or medical procedure. Acute pain may be mild, moderate, or severe. Pain can make it hard for you to do your normal, daily activities. It can cause anxiety and lead toother problems if it is left untreated. Treatment depends on the cause and severity of your pain. Acute pain usually goes away once your injury has healed or you are no longer ill. Follow these instructions at home: Medicines Take yoxg-gzx-gnlcxst and prescription medicines only as told by [...] pain is severe. ?Do not take other bysz-int-ytjyuak pain medicines in addition to prescription pain medicine unlesstold by your health care provider. ?Ask your [...] grains, and fresh fruits and vegetables. ?Take kbqo-tam-csswxlg or prescription medicines. ?Limit foods that are [...] told by your health care provider. Use theheat source that your health care provider recommends, [...] or you are no longer ill. Take atzt-pdh-tjxvwwz and prescription medicines only as told by [...] Document Reviewed: 10/01/2019 Elsevier Patient Education 2022 Diasome. Follow Up Care 04/21/2023 13:14:23 With:DOUG ARTEAGA Address: [address] [place], [place] [address]mar[place] [address]- Business (1) When:04/24/2023 13:30:48 [facility]07-01-2023 Hospital Discharge instructions Patient Education 11/27/2022 19:31:51 Urinary Tract Infection, Adult, Uare-yd-Tbsm Urinary Tract Infection, Adult A urinary tract infection (UTI) is an infection of any part of the urinary tract. The urinary tractincludes: The kidneys. The ureters. The bladder. The [...] Follow these instructions at home: Medicines Take kiwz-clu-zfpcrhy and prescription medicines only as told by [...] a female. Use each tissue one time whenyou wipe. Drink enough fluid to keep your [...] provider. Document Revised: 12/26/2020 Document Reviewed: 12/26/2020 [employer] Patient Education 2022 Diasome. 11/27/2022 18:22:38 Supraventricular Tachycardia, Adult, Ecvs-pn-Mugh Supraventricular Tachycardia, Adult Supraventricular tachycardia (SVT) is [...] limit how much caffeine you eat, drink, oruse. Do not use stimulant drugs. If you [...] heartbeat as told by your doctor. Take cece-ahh-mbndtrj and prescription medicines only as told by [...] help right away. Call your local emergency services(911 in the [place] Do not wait to [...] provider. Document Revised: 12/27/2020 Document Reviewed: 12/27/2020 [employer] Patient Education 2022 Diasome. You are currently taking four 25 mg doses of metoprolol daily. Starting Tuesday begin taking 2 tablets at dose #1 in the morning and 2 tablets at dose #3 in the late afternoon early evening. The otherdoses stay the same. Contact your basket grader Tuesday. Take copies of your monitor strip and your EKG with you. New symptoms, dizziness, shortness of breath, chest pain, or sustained rapid heartbeat should bring you back here. Follow Up Care 11/27/2022 16:18:04 With:Contact your basket grader Tuesday. Address:Unknown When: Unknown With:DOUG ARTEAGA Address: [address] [place] [address]. [place] [address]- Business (1) When:Within 3 Day(s) [facility]07-01-2023 Evaluation + Plan noteExtracted from: Title:ED Note Author:Grant Vazquez MD Date: 3 1. SVT (supraventricular tac hycardia) (I47.1: Supraventricular tachycardia) Acute UTI (urinary tract infection) (N39.0: Urinary tract infection, site not specified) Orders: cephalexin, 500 mg = 1 cap(s), Oral, BID, X 7 day(s), # 14 cap(s), Refills(s) 0, Pharmacy: [facility] #[id number], 170, cm, 11/27/22 16:29:00 EDT, Height/Length Dosing, 92.4, kg, 11/27/22 16:29:00 EDT, Weight Dosing cephalexin, 500 mg = 1 cap(s), Cap, Oral, Once, Stop date 11/27/22 18:58:00 EDT, STAT, Start date 11/27/22 18:58:00 EDT, 11/27/22 18:58:00 EDT metoprolol, See Instructions, 2 tabs in the morning and evening and 1 tab in the afternoon, # 20 tab(s), Refills(s) 0, Pharmacy: [facility] #[id number], 170, cm, 11/27/22 16:29:00 EDT, Height/Length Dosing, 92.4, kg, 11/27/22 16:29:00 EDT, Weight Dosing Diagnostic Tests Pending * Urine Culture 11/27/22 [facility]12-18-2022 Hospital Discharge instructions Patient Education 05/15/2022 23:39:24 Palpitations, Qkgc-hs-Mjwr Palpitations Palpitations are feelings that your heartbeat [...] a regular bed time. General instructions Take ctdd-awo-plusoaz and prescription medicines only as told by [...] 02/22/2009 Document Revised: 06/28/2018 Document Reviewed: 06/28/2018 [employer] Patient Education 2020 Diasome. 05/15/2022 23:39:22 Nonspecific Chest Pain, Adult, Zpvq-md-Otoc Nonspecific Chest Pain Chest pain can be [...] Follow these instructions at home: Medicines Take ambq-rik-moaxxvu and prescription medicines only as told by [...] ?Eating a heart-healthy diet. A diet and lubricating specialist (dietitian) can help you to learn [...] 11/01/2008 Document Revised: 11/16/2018 Document Reviewed: 11/16/2018 [employer] Patient Education 2020 Diasome. Follow Up Care 05/15/2022 19:43:58 With:ARNOL FISCHER, EWELINA CALVO Address: [address] [place] [address]. [place] [address]- When:05/17/2022 [facility]12-17-2022 Evaluation + Plan noteExtracted from: Title:ED Note [...] Troponin 6 Hr. XR Chest Single View [facility]08-07-2022 Evaluation + Plan noteExtracted from: Title:ED Note Author:Jose Daniel Silva DO Date :01/03/22 Palpitations (R00.2: Palpita tions) Orders: Automated Diff Basic Metabolic Panel CBC w/ Auto Diff ECG 12 Lead Adult ED Cardiac Monitoring eGFR Hepatic Function Panel Magnesium Level Oxygen Saturation Oxygen Therapy PT & PTT Saline Lock Insert Troponin 0 Hr. XR Chest Single View [facility]08-07-2022 Hospital Discharge instructions Patient Education 01/03/2022 01:25:02 Palpitations, Jynd-nx-Ompc Palpitations Palpitations are feelings that your heartbeat [...] a regular bed time. General instructions Take gjsf-ghd-qfglbyi and prescription medicines only as told by [...] 02/22/2009 Document Revised: 06/28/2018 Document Reviewed: 06/28/2018 [employer] Patient Education 2020 Diasome. Follow Up Care 01/02/2022 22:55:07 With:DOUG ARTEAGA Address: [address] [place] [address]- Business (1) When:01/06/2022 Comments:Follow-up with your primary care doctor next 2 to 3 days for further evaluation and management. Please return the ED for any new or worsening symptoms. [facility]04-05-2022 Evaluation + Plan noteExtracted from: Title:Discharge Note [...] to go home and f/u w/PCP and Marketing Planning Manager. Plan was discussed with patient and family (if applicable) at bedside Orders: metoprolol, 25 mg = 1 tab(s), Oral, QID, # 120 tab(s), Refills(s) 0, Pharmacy: [facility] 170, cm, 08/30/21 1:31:00 EDT, Height/Length Dosing, [...] AM EDT [address] [place] [address]- Business (1) Additional Instructions: Sagar Zamarripa [facility] [address] [place] [address]- Additional Instructions: Thrombocytopenia Extracted from: Title:Consult Note Author:Mitch Alberts MD te:08/31/21 1. Palpitations (R00.2: Palp itations) Patient [...] discharged home and follow-up with Dr. Lawson duron going forward. Consultation time took place between [...] was evaluated for something very similar in [place] seen by Dr. Elizabeth describes having Holter monitors, and event monitor and even a stress study it is not aware of any concerning findings. She has not seen his basket grader in quite some period of time. We [...] Physician consult Hospitalist for continued care Troponin [facility]04-03-2022 Hospital Discharge instructions Follow Up Care 08/30/2021 01:23:32 With:Sagar Zamarripa Address: [facility] [place] [address]- When: Unknown Comments:Thrombocytopenia With:DOUG ARTEAGA Address: [address] [place] [address] [place] [address]- Business (1) When:09/07/2021 09:20:00 [facility]12-14-2017 Telephone encounter Note* Telephone Encounter - Kati Mendieta CNP - 05/12/2017 8:08 AM EST Needs appt [id number] Miscellaneous Notes* Telephone Encounter - Kati Mendieta CNP - 05/12/2017 8:08 AM EST Needs appt documented in this [id number] Telephone encounter Note* Telephone Encounter - Kati Mendieta CNP - 04/18/2017 7:30 AM EST Patient has not been seen since April 2016. Please arrange 1 month refill and office visit [id number] Miscellaneous Notes* Telephone Encounter - Kati Mendieta CNP - 04/18/2017 7:30 AM EST Patient has not been seen since April 2016. Please arrange 1 month refill and office visit documented in this encounterOhioHealthEvaluation note* Diagnosis Hypercholesteremia Pure hypercholesterolemia Essential hypertension Unspecified essential hypertension documented in this encounter [employer] Phone: evaluation note* Diagnosis Screening PSA (prostate specific antigen) Special screening for malignant neoplasm of prostate documented in this encounter [employer] Phone: evaluation note* Diagnosis Palpitations documented in this encounter [employer] Phone: evaluation note* Diagnosis Excessive daytime sleepiness Other sleep apnea documented in this encounter SONYA RAMOS [facility]* Diagnosis Personal history of tobacco use Personal history of tobacco use, presenting hazards to health documented in this encounter [facility]* Diagnosis Screening for AAA (abdominal aortic aneurysm) Screening for other and unspecified cardiovascular conditions documented in this encounter [facility]* Diagnosis Leg edema, left Edema [facility] Narrative No data available for this section [facility] Dis[facility] instructions No data available for this section [facility] No data available for this section [facility] History of Present Illness * Rubi Berger RCP - 04/04/2019 7:37 PM EST The patient [...] FoundDocuments on File Type Date Recorded Patient [place] [employer] Gauger Expl anation Advance Directives and Living Will Power of Fishing Vessel Deckhand Documents on File Type Date Recorded Patient [place] Strip Gauger Expl anation Advance Directives and Living Will Power of Fishing Vessel Deckhand Documents on File Type Date Recorded Patient [place] Strip Gauger Expl anation ACP-Advance Directive ACP-Power of Fishing Vessel Deckhand Healthcare Agents on File Name Relationship Healthcare [...] other concerns. Please follow up with your basket grader and family doctor in 1-2 days. * Attachments The following attachments cannot be sent through Care Everywhere. * Rate-Control Medicines: General Info (Beninese) documented in this encounter* Attachments The following attachments cannot be sent through Care Everywhere. * Cardiac Arrhythmia (Beninese) documented in this encounter* Attachments The following attachments cannot be sent through Care Everywhere. * Numbness and Tingling (Beninese) documented in this encounter* Attachments The following attachments cannot be sent through Care Everywhere. * Numbness and Tingling (Beninese) documented in this encounter* Attachments The following attachments cannot be sent through Care Everywhere. * Diplopia (Beninese) documented in this encounter* Attachments The following attachments cannot be sent through Care Everywhere. * Palpitations (Beninese) documented in this encounter Reason for Referral Status Reason Specialty Diagnoses / Procedures Referre d By Contact Referred To Contact Closed EKG Diagnoses Palpitations Procedures Cardiac event monitor Demetrius Jimenez MD [address] [place] [address] [facility] [address] [place] [address] Status Reason Specialty Diagnoses / Procedures Referred By Contact Referred To Contact Open Diagnoses Palpitations Procedures Holter Monitor 48 Hour Siomara Mejia MD [address] [place] [address] [place] [address] Status Reason Specialty Diagnoses / Procedures Referre d By Contact Referred To Contact Open Diagnoses Palpitations Procedures Cardiac event monitor [facility] EVENT MONITOR - [facility] Demetrius Jimenez MD [address] [place] [address] Specialty Diagnoses / Procedures Referred By Contac t Referred To Contact Sleep Center Diagnoses Excessive daytime sleepiness Other sleep apnea Procedures Baseline Diagnostic Sleep Study Doug Arteaga MD [address] [place] [address] Referral ID Status Reason Start Date Expiration Date V isits Requested Visits Authorized [id number] Not Required - RTA 09/12/2023 09/11/2024 1 1 Specialty Diagnoses / Procedures Referred By Contac t Referred To Contact Radiology Diagnoses Personal history of tobacco use Procedures CT Lung Screen (Initial/Annual/Baseline) Doug Arteaga MD [address] [place] [address] Referral ID Status Reason Start Date Expiration Date V isits Requested Visits Authorized [id number] Not Required - RTA 05/02/2023 05/01/2024 1 1 Specialty Diagnoses / Procedures Referred By Contac t Referred To Contact Diagnoses Screening for AAA (abdominal aortic aneurysm) Procedures Vascular AAA screening Doug Arteaga MD [address] [place] [id number] Referral ID Status Reason Start Date Expiration Date V isits Requested Visits Authorized [id number] Not Required - RTA 05/02/2023 05/01/2024 1 1 Specialty Diagnoses / Procedures Referred By Contac t Referred To Contact Diagnoses Leg edema, left Procedures Vascular duplex lower extremity venous left Doug Arteaga MD [address] [place] [address] Referral ID Status Reason Start Date Expiration Date V isits Requested Visits Authorized [id number] Not Required - RTA 03/21/2024 03/21/2025 1 1 Summary Purpose Family History No Family History Records Found No data available for this section No data available for this section No Family History Records FoundNo Family History Records Found No data available [...] SEST. REST STRESS MULT Doug Arteaga MD [address] [place] [address] Reason Comments Tachycardia states has fast hear t beat off and on -today it didnt go away as fast as normal Status Reason Specialty Diagnoses / Procedures Referre d By Contact Referred To Contact Closed EKG Diagnoses Palpitations Procedures Cardiac event monitor Demetrius Jimenez MD [address] [place] [address] [facility] [address] [place] [address] Reason Comments Tachycardia rapid heart rate papo [...] Diplopia started yesterday Headache intermittent since y Reason Comments Tachycardia around 1400 today pt said he felt his heart start going fast while walking, he took is medications and feels fine know Status Reason Specialty Diagnoses / Procedures Referre d By Contact Referred To Contact Open Diagnoses Palpitations Procedures Cardiac event monitor [facility] Dem[facility]rius Jimenez MD [address] [place] [address] Reason Comments Medication Refill Specialty Diagnoses / Procedures Referred By Juma ya Referred To Contact Sleep Center Diagnoses Excessive daytime sleepiness Other sleep apnea Procedures Baseline Diagnostic Sleep Study Doug Arteaga MD [address] [place] [address] [facility] [address] [place] [address] Referral ID Status Reason Start Date Expiration Date V isits Requested Visits Authorized [id number] Not Required - RTA 06/28/2023 06/27/2024 1 1 Specialty Diagnoses / Procedures Referred By Contac t Referred To Contact Radiology Diagnoses Personal history of tobacco use Procedures CT Lung Screen (Initial/Annual/Baseline) Doug Arteaga MD [address] [place] [address] Referral ID Status Reason Start Date Expiration Date V isits Requested Visits Authorized [id number] Not Required - RTA 05/02/2023 05/01/2024 1 1 Specialty Diagnoses / Procedures Referred By Contac t Referred To Contact Diagnoses Screening for AAA (abdominal aortic aneurysm) Procedures Vascular AAA screening Doug Arteaga MD [address] [place] [address] Referral ID Status Reason Start Date Expiration Date V isits Requested Visits Authorized [id number] Not Required - RTA 05/02/2023 05/01/2024 1 1 Specialty Diagnoses / Procedures Referred By Contac t Referred To Contact Diagnoses Leg edema, left Procedures Vascular duplex lower extremity venous left Doug Arteaga MD [address] [place] [address] Referral ID Status Reason Start Date Expiration Date V isits Requested Visits Authorized [id number] Not Required - RTA 03/21/2024 03/21/2025 1 1 Care Team (unrecognized sect ion and content) Social Science Instructor Relationship Specialty Start Date End Date Doug Arteaga MD PCP - General Family Medicine 04/30/16 Social Science Instructor Relationship Specialty Start Date End Date Doug Arteaga MD PCP - General Family Medicine 04/30/16 Social Science Instructor Relationship Specialty Start Date End Date Doug Arteaga MD [address] [place], [place] [phone] PCP - General Family Medicine 06/09/17 Social Science Instructor Relationship Specialty Start Date End Date Doug Arteaga MD [address] [place] [address] PCP - General Family Medicine 06/09/17 Social Science Instructor Relationship Specialty Start Date End Date Doug Arteaga MD [address] [place] [address] PCP - General Family Medicine 06/09/17 (unrecognized [...] section and content) DATE CREATED AUTHOR 10/12/2022 [facility] pital DATE CREATED AUTHOR AUTHOR'S ORGANIZ ATION 10/01/2023 [facility] dical [facility] DATE CREATED AUTHOR AUTHOR'S ORGANIZ ATION 03/26/2024 [facility] DATE CREATED AUTHOR AUTHOR'S ORGANIZ ATION 05/18/2024 [facility] DATE CREATED AUTHOR AUTHOR'S ORGANIZ ATION 05/19/2024 [facility] FOR RECORDS PERTAINING TO PATIENTS WHO ARE [...] BE BASED ON THE PRIMARY CLINICAL RECORDS. [employer] [facility]. provides no warranty or guarantee of the accuracy or completeness of information in this document.
--- NOTE | 2024-05-20 14:16 | XR_ITS ---
The [address] [address] Patient Name: NORY DSOUZA MRN: [id number] date: 1955 Sex: M Assigned Patient Location: ED.MAIN Current Patient Location: ER Accession/Order Number: [id number] Exam Date: 05/20/2024 14:55 Report Date: 05/20/2024 16:23 At the request of: JORY DOWLING Procedure: XR tibia fibula LT 2V EXAM: XR tibia fibula LT 2V HISTORY: infection COMPARISON: None. TECHNIQUE: Left lower leg AP lateral FINDINGS: No fracture or healing fracture. No erosive or destructive change or periosteal reaction. Subcutaneous edema. Phleboliths in the soft tissues. No soft tissue gas. Degenerative changes ankle and midfoot including ankle joint, subtalar joint and midfoot joints. XR/XR tibia fibula LT 2V IMPRESSION: No evidence of fracture or osteomyelitis. Degenerative changes most prominent at the ankle. Electronically authenticated by: MAVIS STRICKLAND Date: 05/20/2024 16:23
[2024-05-20 14:50] LABS: Hematocrit 38.5 % (42.0-54.0); Hemoglobin 12.5 g/dL (14.0-18.0); Mean Corpuscular HGB Conc 32.5 g/dL (29.9-35.2); Mean Corpuscular Hemoglobin 33.9 pg (25.9-34.0); Mean Corpuscular Volume 104.3 fL (80.0-94.0); Mean Platelet Volume 11.8 fL (9.5-13.5); Platelet Count 80 10^3/uL (150-450); Red Blood Count 3.69 10^6/uL (4.70-6.10); Red Cell Distribution Width 14.1 % (11.0-15.0); White Blood Count 12.6 10^3/uL (4.0-11.0)
[2024-05-20 14:55] LABS: Erythrocyte Sedimentation Rate 41 mm/hr (<=20)
[2024-05-20 15:01] LABS: Alanine Aminotransferase 18 U/L (16-63); Albumin Level 3.2 g/dL (3.4-5.0); Alkaline Phosphatase 73 U/L (46-116); Anion Gap 14.8; Aspartate Amino Transferase 26 U/L (15-37); Bilirubin Total 1.4 mg/dL (0.2-1.0); Calcium 8.6 mg/dL (8.5-10.1); Carbon Dioxide 25.4 mmol/L (21.0-32.0); Chloride 103 mmol/L (98-107); Estimated GFR (African America >60 (>=60 mL/min/1.73m^2); Estimated GFR (Non-African Ame >60 (>=60 mL/min/1.73m^2); Globulin 3.1 g/dL; Glucose 85 mg/dL (74-106); Potassium 4.2 mmol/L (3.5-5.1); Sodium 139 mmol/L (136-145); Total Protein 6.3 g/dL (6.4-8.2)
[2024-05-20 15:05] LABS: Band Neutrophils Absolute 0.3 10^3/uL (0.0-0.3); Lymphocytes Absolute Manual 0.63 10^3/uL (1.20-3.80); Monocytes Absolute Manual 3.15 10^3/uL (0.30-0.80); Segmented Neut Absolute Manual 8.56 10^3/uL (1.4-6.5)
--- NOTE | 2024-05-20 15:14 | ECG_ITS ---
The [facility] Test Date: 2024-05-20 Pat Name: NORY DSOUZA Department: Room: - Gender: Male [employer]: : 1955 Requested By: [id number] Order Number: [id number] Reading MD: JUHI SMITH Measurements Intervals [place] Rate: 73 P: 34 CO: 186 QRS: 55 QRSD: 92 T: 39 QT: 376 QTc: 402 Interpretive Statements 1100 Sinus rhythm 1470 with occasional supraventricular premature complexes 3614 Cannot rule out inferior myocardial infarction, age undetermined 9150 abnormal ECG Compared to ECG 06/26/2022 16:30:01 Myocardial infarct finding now present Electronically Signed On 05-20-2024 17:58:31 EST by JUHI SMITH
[2024-05-20 15:27] LABS: Lactate/Lactic Acid 1.1 mmol/L (0.4-2.0)
--- NOTE | 2024-05-20 15:42 | CT_ITS ---
The [address] [address] Patient Name: NORY DSOUZA MRN: [id number] date: 1955 Sex: M Assigned Patient Location: ER Current Patient Location: ER Accession/Order Number: [id number] Exam Date: 05/20/2024 16:30 Report Date: 05/20/2024 18:32 At the request of: JORY DOWLING Procedure: CT lower leg LT w con EXAM: CT lower leg LT w con HISTORY: abscess ? COMPARISON: Left lower leg x-ray 05/20/2024. TECHNIQUE: CT lower leg knee to ankle with IV contrast. Axial scans with reformatted coronal and sagittal images. Individualized dose reduction used for this exam. 100 mL Omnipaque 300 IV. FINDINGS: Extensive diffuse subcutaneous edema is seen. I do not see definite soft tissue gas or walled off fluid collection with enhancement to suggest abscess. No bony erosion or periosteal reaction or other findings suggesting osteomyelitis. No significant joint effusion at the knee. Severe degenerative changes ankle and midfoot as noted on x-ray fracture or healing fracture seen. No foreign body. Venous varices are noted. No definite vascular thrombus. Significant atrophy of the calf muscles. CT/CT lower leg LT w con IMPRESSION: No definite abscess or soft tissue gas seen although sensitivity for abscess is somewhat limited due to the extensive diffuse subcutaneous edema. Normal enhancement of the vascular structures without findings suggesting venous thrombus. No bony abnormality, fracture or evidence of osteomyelitis. Severe degenerative changes ankle and midfoot. Electronically authenticated by: MAVIS STRICKLAND Date: 05/20/2024 18:32
[2024-05-20] MEDS: AMPICILLIN SODIUM/SULBACTAM NA 3 GM in 0.9 % SODIUM CHLORIDE 100 ML IV ×2 (15:55→22:00)
[2024-05-20] MEDS: ACETAMINOPHEN 325 MG TABLET 650 MG PO ×2 (16:05→21:59)
--- NOTE | 2024-05-20 17:13 | ED_ITS ---
HPI - Skin/Abscess/Foreign Bdy General Chief complaint: Skin/Abscess/Foreign Body Stated complaint: LOWER EXTREMITY SWELLING Time Seen by Provider: 05/20/24 14:09 Source: patient Mode of arrival: ambulance Limitations: no limitations History of Present Illness HPI narrative: The patient have history of chronic lymphedema in his left lower extremity is coming to the ER after he noticed for the last almost 2 days he started having more pain there in addition to more swelling and redness, patient mentioned that his legs feel warm and he is not able to ambulate with his leg right now compared to his baseline usually able to ambulate He mentioned that the swelling increased over the last 24 hours he denies any fever chills or any decreased p.o. intake Related Data Home Medications ?Medication ?Instructions ?Recorded ?Confirmed atorvastatin 40 mg tablet 40 mg PO DAILY 05/20/24 05/20/24 dexamethasone 0.5 mg tablet 0.5 mg PO DAILY 05/20/24 05/20/24 diltiazem HCl 120 mg 120 mg PO DAILY 05/20/24 05/20/24 capsule,extended release 24 hr metoprolol tartrate 25 mg tablet 25 mg PO BID 05/20/24 05/20/24 Allergies Allergy/AdvReac Type Severity Reaction Status Date / Time No Known Drug Allergies Allergy Verified 05/20/24 14:04 Review of Systems ROS Status of ROS 10 or more systems reviewed and unremark able except as noted in history and below PFSH PFSH Social History Smoking status: Current every day smoker Little interest or pleasure in doing things: not at all Feeling down, depressed, or hopeless: not at all Exam Narrative Exam Narrative: Nurses notes and vital signs reviewed and patient is not hypoxic. Bilateral lower extremity: The patient have a significant left leg edema and redness compared to the right side the left leg is almost double if not more the size of the right side and the patient have a good anterior tibial pulse no vascular injury detected The patient have a significant erythema and warmth of the left leg up to the knee level with tenderness on palpation of the posterior aspect of the calf, there is an area of almost 2 x 3 cm oval in shape that is fluctuant on the posterior aspect of his left leg General: Well-appearing and in no apparent distress. Skin: Warm, dry, no pallor noted. No rash. Head: Normocephalic, atraumatic. Neck: Supple, non-tender. Eye: Pupils are equal, round and EOMI. No scleral icterus. Ears, Nose, Mouth, and Throat: TM are clear, no nasal mucosal hypertrophy. Oral mucosa is moist, no posterior oropharynx erythema, uvula is mid-line Cardiovascular: Regular Rate and Rhythm without murmur, gallop or rub. Respiratory: No accessory muscle use or respiratory distress. Lungs are clear to auscultation, no wheezing, rales or rhonchi Chest Wall: no tenderness Back: No midline thoracic or lumbar vertebral tenderness. No CVA tenderness GI: Abdomen is soft, non-distended. Normal bowel sounds. No masses appreciated. No tenderness to palpation. No rebound, guarding, or rigidity noted. Neurological: A&O x4. No cranial nerve dysfunction observed. Constitutional Vital Signs, click to edit/add: Last Vital Signs Temp 98.8 F 05/20/24 14:02 Pulse 74 05/20/24 17:40 Resp 20 05/20/24 17:40 BP 114/78 05/20/24 14:08 Pulse Ox 96 05/20/24 15:20 O2 Del Method Room Air 05/20/24 14:02 Course Vital Signs Vital signs: Vital Signs Temperature 98.8 F 05/20/24 14:02 Pulse Rate 73 05/20/24 14:02 Respiratory Rate 22 H 05/20/24 14:02 Blood Pressure 137/88 05/20/24 14:02 Pulse Oximetry 98 05/20/24 14:02 Oxygen Delivery Method Room Air 05/20/24 14:02 Temperature 98.8 F 05/20/24 14:02 Pulse Rate 74 05/20/24 17:40 Respiratory Rate 20 05/20/24 17:40 Blood Pressure 114/78 05/20/24 14:08 Pulse Oximetry 96 05/20/24 15:20 Oxygen Delivery Method Room Air 05/20/24 14:02 MDM - Skin/Abscess/Foreign Bdy MDM Narrative Medical decision making narrative: The patient EKG in the ER showing sinus rhythm with a heart rate of [address] el evation or depression CBC showing leukocytosis CRP is elevated Chemistry was within normal CT of the lower extremity was done to make sure that the patient did not have any abscess on the posterior aspect of the left leg Culture was obtained and the patient was started on Unasyn The patient CAT scan showed no acute significant pathology except for the edema The patient will be admitted for further evaluation of his cellulitis and his case was discussed with Dr. Guzman she agreed on admitting the patient with above- mentioned plan pt was admitted under Dr Denise Lab Data Labs: Lab Results 05/20/24 Range/Units 14:29 WBC 12.6 H (4.0-11.0) 10^3/uL RBC 3.69 L (4.70-6.10) 10^6/uL Hgb 12.5 L (14.0-18.0) g/dL Hct 38.5 L (42.0-54.0) % MCV 104.3 H (80.0-94.0) fL MCH 33.9 (25.9-34.0) pg MCHC 32.5 (29.9-35.2) g/dL RDW 14.1 (11.0-15.0) % Plt Count 80 L (150-450) 10^3/uL MPV 11.8 (9.5-13.5) fL Seg Neuts % (Manual) 68.0 (43.0-75.0) Band Neutrophils % 2.0 (0-5) % Lymphocytes % (Manual) 5.0 L (20.5-60.0) % Monocytes % (Manual) 25.0 H (1.7-12.0) % Eosinophils % (Manual) 0.0 L (0.9-7.0) % Basophils % (Manual) 0.0 L (0.2-2.0) % Neutrophils # (Manual) 8.56 H (1.4-6.5) 10^3/uL Band Neutrophils # 0.3 (0.0-0.3) 10^3/uL Lymphocytes # (Manual) 0.63 L (1.20-3.80) 10^3/uL Monocytes # (Manual) 3.15 H (0.30-0.80) 10^3/uL Eosinophils # (Manual) 0.00 (0.00-0.70) 10^3/uL Basophils # (Manual) 0.00 (0.00-0.10) 10^3/uL ESR 41 H (<=20) mm/hr Sodium 139 (136-145) mmol/L Potassium 4.2 (3.5-5.1) mmol/L Chloride 103 (98-107) mmol/L Carbon Dioxide 25.4 (21.0-32.0) mmol/L Anion Gap 14.8 BUN 14.0 (7.0-18.0) mg/dL Creatinine 1.00 (0.70-1.30) mg/dL Est GFR ( Amer) >60 (>=60 mL/min/1.73m^2) Est GFR (Non-Af Amer) >60 (>=60 mL/min/1.73m^2) BUN/Creatinine Ratio 14.0 Glucose 85 (74-106) mg/dL Lactate 1.1 (0.4-2.0) mmol/L Calcium 8.6 (8.5-10.1) mg/dL Total Bilirubin 1.4 H (0.2-1.0) mg/dL AST 26 (15-37) U/L ALT 18 (16-63) U/L Alkaline Phosphatase 73 (46-116) U/L C-Reactive Protein 4.60 H (<=0.50) mg/dL Total Protein 6.3 L (6.4-8.2) g/dL Albumin 3.2 L (3.4-5.0) g/dL Globulin 3.1 g/dL Albumin/Globulin Ratio 1.0 Discharge Plan Discharge Chief Complaint: Skin/Abscess/Foreign Body Clinical Impression: Cellulitis of left leg, Decreased ambulation status Patient Disposition: Admitted As Inpatient Time of Disposition Decision: 17:25
--- NOTE | 2024-05-20 19:09 | PC.NURSE ---
i walked into this patient to find this patient awake and alert lying on his left side on the bed. i introduced myself to this patient and his , both updated that we are waiting on a room for this patient. this patient voices no concerns and shows no signs of distress
--- OUTSIDE RECORDS SUMMARY | 2024-05-20 19:46 | XMS_ITS | CCD ---
Author Organization [facility] Care Team Providers Care Toll Service Observer Name Role Phone Doug Arteaga Primary Care [...] Mbanefo Admitting Unavailable OJUKWU, Mbanefo Attending Unavailable Mcrae, Samantha Consulting Unavailable Mcrae, Samantha Consulting Unavailable Mcrae, Samantha Consulting Unavailable Mcrae, Samantha Consulting Unavailable Mcrae, Samantha Consulting Unavailable Mcrae, Samantha Consulting Unavailable Mcrae, Samantha Consulting Unavailable Mcrae, Samantha Consulting Unavailable Mcrae, Samantha Consulting Unavailable OJUKWU, Mbanefo Admitting Unavailable [...] Daily, # 30 tab(s), Refills(s) 0, Pharmacy: [facility]/pharmacy #[id number], 168, cm, 05/15/24 15:01:00 EST, Height/Length [...] day(s), # 14 cap(s), Refills(s) 0, [id number], 170, cm, 11/27/22 16:29:00 EDT, Height/Length Dosing, [...] Start: 02-07-2023 take 1 capsule by mo [facility] once daily dilTIAZem (CARDIZEM CD) 120 MG [...] # 20 tab(s), Refills(s) 0, Pharmacy: [facility] #[id number], 170, cm, 11/27/22 16:29:00 EDT, Height/Length Dosing, [...] QID, # 120 tab(s), Refills(s) 0, Pharmacy: [address], 170, cm, 08/30/21 1:31:00 EDT, Height/Length [...] Coronary arteriosclerosis; Translations: [Atherosclerotic heart disease of [place] coronary artery without angina pectoris] Onset: 09-24-2015 [...] 06-28-2023 Episodic Other aftercare (1 source) Other detention (current) drug therapy; Translations: [OTH INTERMEDIATE CURRENT DRUG THERAPY] Onset: 06-28-2022 Episodic Other aftercare (1 source) buttermaker (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) use of aspirin; Translations: [INTERMEDIATE CURRENT USE OF ASPIRIN] Onset: 02-13-2022 Episodic [...] Test Name Value Interpretation Reference Range Facility [facility] 05-16-2024 Anion gap [Moles/Vol] 11 mmol/L Normal 6-16 [facility] Comment on above: Performed By: #### 2 [id number] #### [facility] [address] [place] [address] Calcium [Mass/Vol] 8.7 mg/dL Low 8.9-11.1 [facility] Comment on above: Performed By: #### 2 [id number] #### [facility] [address] [place] [address] Chloride [Moles/Vol] 105 mmol/L Normal 101-111 [facility] Comment on above: Performed By: #### 2 [id number] #### [facility] [address] [place] [address] CO2 [Moles/Vol] 26 mmol/L Normal 21-31 [facility] Comment on above: Performed By: #### 2 [id number] #### [facility] [address] [place] [address] Creatinine [Mass/Vol] 0.8 mg/dL Normal 0.5-1.3 [facility] Comment on above: Performed By: #### 2 [id number] #### [facility] [address] [place] [address] Glucose [Mass/Vol] 85 mg/dL Normal 55-199 [facility] Comment on above: Performed By: #### 2 257205 #### [facility] [address] [place] [address] Potassium [Moles/Vol] 4.0 mmol/L Normal 3.5-5.3 [facility] Comment on above: Performed By: #### 2 356755 #### [facility] [address] [place] [address] Sodium [Moles/Vol] 138 mmol/L Normal 135-145 [facility] Comment on above: Performed By: #### 2 450476 #### [facility] [address] [place] [address] Urea nitrogen [Mass/Vol] 18 mg/dL Normal 5-21 [facility] Comment on above: Performed By: #### 2 [id number] #### [facility] [address] [place] [address] Urea nitrogen/Creatinine [Mass ratio] 22 No Units High 10-20 [facility] Comment on above: Performed By: #### 2 076817 #### [facility] [address] [place] [address] CBC w/ Auto Diffon 4 Basophils/100 WBC (Bld) 0.2 % Normal 0.0-2.0 [facility] Comment on above: Performed By: #### 2 636188 #### [facility] [address] [place] [address] Basophils/Leukocytes Auto (Bld) [Pure # fraction] 0.0 E9/L Normal 0.0-0.2 [facility] Comment on above: Performed By: #### 2 [id number] #### [facility] [address] [place] [address] Eosinophils (Bld) [#/Vol] 0.0 E9/L Normal 0.0-0.5 [facility] Comment on above: Performed By: #### 2 035368 #### [facility] [address] [place] [address] Eosinophils/100 WBC (Bld) 0.2 % Normal 0.0-8.0 [facility] Comment on above: Performed By: #### 2 [id number] #### [facility] [address] [place] [address] Erythrocyte distribution width (RBC) [Ratio] 14.8 % High 10.9-14.2 [facility] Comment on above: Performed By: #### 2 365784 #### [facility] [address] [place] [address] Hematocrit (Bld) [Volume fraction] 38.5 % Normal 37.7-49.0 [facility] Comment on above: Performed By: #### 2 933758 #### [facility] [address] [place] [address] Hemoglobin (Bld) [Mass/Vol] 13.1 g/dL Low 13.5-17.5 [facility] Comment on above: Performed By: #### 2 867230 #### [facility] [address] [place] [address] Lymphocytes (Bld) [#/Vol] 2.0 E9/L Normal 1.0-4.0 [facility] Comment on above: Performed By: #### 2 755373 #### [facility] [address] [place] [address] Lymphocytes/100 WBC (Bld) 35.7 % Normal 14.0-50.0 [facility] Comment on above: Performed By: #### 2 839371 #### [facility] [address] [place] [address] MCH (RBC) [Entitic mass] 34.8 pg High 27.0-34.0 [facility] Comment on above: Performed By: #### 2 693612 #### [facility] [address] [place] [address] MCHC (RBC) [Mass/Vol] 34.0 g/dL Normal 31.4-36.0 [facility] Comment on above: Performed By: #### 2 138474 #### [facility] [address] [place] [address] MCV (RBC) [Entitic vol] 102.4 fL High 80.0-100.0 [facility] Comment on above: Performed By: #### 2 760842 #### [facility] [address] [place] [address] Monocytes (Bld) [#/Vol] 1.0 E9/L Normal 0.2-1.0 [facility] Comment on above: Performed By: #### 2 894905 #### [facility] [address] [place] [address] Neutrophils (Bld) [#/Vol] 2.6 E9/L Normal 2.0-7.5 [facility] Comment on above: Performed By: #### 2 682727 #### [facility] [address] [place] [address] Neutrophils/100 WBC (Bld) 46.0 % Normal 36.0-75.0 [facility] Comment on above: Performed By: #### 2 578880 #### [facility] [address] [place] [address] Platelet mean volume (Bld) [Entitic vol] 10.5 fL Normal 6.4-10.8 [facility] Comment on above: Performed By: #### 2 446933 #### [facility] [address] [place] [address] Platelets (Bld) [#/Vol] 97.0 E9/L Low 150.0-500.0 [facility] Comment on above: Performed By: #### 2 676474 #### [facility] [address] [place] [address] RBC (Bld) [#/Vol] 3.8 E12/L Low 4.3-5.9 [facility] Comment on above: Performed By: #### 2 [id number] #### [facility] [address] [place] [address] WBC corrected for nucl RBC Auto (Bld) [#/Vol] 5.6 E9/L Normal 4.0-11.0 [facility] Comment on above: Performed By: #### 2 750781 #### [facility] [address] [place] [address] CHEMISTRYOrdered By: SYSTEM SYSTEM on 05-16-2024 Anion [...] (Bld) [Mass fraction] 5.1 % Normal <=5.9% [facility] [employer] CTA Headon 12-18-2024 CTA Head Exam [...] 370 Contrast amount in ml's: 88 Normal [facility] CTA Neckon 05-16-2024 CTA Neck [...] 370 Contrast amount in ml's: 88 Normal [facility] Discharge Note-Nursingon Discharge Note-Nursing Discharge Note-Nursing NROY DSOUZA :1955 Visit Date:05/15/2024 Inpatient Discharge Instructions [...] do in patient paper work. Where: [address] [facility] [address] [place] [address]- Business (1) Follow Up with DOUG ARTEAGA When: Within 5 to 7 days Comments: Office was closed for lunch. Patient needs to call to make hospital follow up appointment. Where: [address] [place] [address]- Business (1) Medications What How Much When Instructions Next Dose New aspirin (aspirin 81 mg Oral EC Tab) 1 Tablets By Mouth Every day 05/17/2024 New atorvastatin (atorvastatin 40 mg Tab) 1 Tablets By Mouth Every day Pickup at [facility]/pharmacy #[id number] Begin 05/17/2024 Unchanged diltiazem (DilTIAZem (Eqv-Cardizem CD) 120 mg/ 24 hours oral capsule, extended release) See instructions Resume 05/17/2024 Unchanged lansoprazole (Prevacid 30 mg Cap-EC) 1 Capsules By Mouth Every day Take one capsule by mouth every day 05/17/2024 Unchanged metoprolol (Lopressor 25 mg oral tablet) See instructions Resume 05/17/2024 Pharmacy Information [facility]/pharmacy #[id number]: [address] [place], [place] [id number] [phone] What How Much When Comments Stop Taking [...] (gastroesophageal reflux disease) HTN (hypertension) Hx of detention use of blood thinners Hyperlipidemia Nocturia Post-void [...] stroke-like symptoms (more content not included)... Normal [facility] HEMATOLOGYOrdered By: SYSTEM SYSTEM on [...] Normal 4.0 - 11.0 E9/L Remisol Heme [id number] 05-16-2024 HbA1c (Bld) [Mass fraction] 5.1 % Normal <=5.9 [facility] Comment on above: Performed By: #### 7 [id number] #### [facility] [address] [place] [address] Inpatient Clinical Summaryon 05-16-2024 Inpatient Clinical Summary Inpatient Clinical Summary [facility] [address] [place], [place] [address] Clinical Summary Person Information: Name: NORY DSOUZA Age: 69 Years : 1955 Sex: Male PCP: DOUG ARTEAGA MD Marital Status: Phone: Race: White Ethnicity: Non- or Language: Angolan Visit Id: Visit Reason: Weakness or fatigue; Paresthesia; LEFT SIDE TIGGLING Speciality: Acuity: Enc Type: Observation Med Service: Medical Arrival: 05/15/2024 14:52:20 Discharge: Dispo Type: Admitted as IP to this Hosp Address: [address] [place] [id number] Provider Notes: Diagnosis: 2:Hyperlipidemia; 3:HTN (hypertension); 4:GERD (gastroesophageal reflux disease); 5:Smoker Problems Active GERD (gastroesophageal reflux disease) HTN (hypertension) Dehydration SVT (supraventricular tachycardia) Family history of prostate cancer Post-void dribbling Nocturia Smoker Urinary tract infection Frequent urination Hyperlipidemia Solar keratosis Hx of detention use of blood thinners Elevated PSA BPH [...] Care Team Members: Attending Physician: INES FISCHER, [facility] Consulting Physician: Samantha Mccoy MD; Bita FISCHER, Hiram Kraft Referring Physician: Follow up: With: Address: When: DOUG ARNOL [address] [place] [address] [facility] (1) Within 5 to 7 days Comments: Office was closed for lunch. Patient needs to call to make hospital follow up appointment. With: Address: When: Samantha Mccoy MD, [facility] [place] [address] Within 2 to 4 weeks Patient Education Information: Normal [facility] Inpatient Patient Summaryon 05-16-2024 Inpatient Patient Summary Inpatient Patient Summary [address] [address] Patient Discharge Instructions PERSON INFORMATION [...] Follow up: With: Address: When: DOUG ARTEAGA [address] [place] [address] Business (1) Within 5 to 7 days Comments: Office was closed for lunch. Patient needs to call to make hospital follow up appointment. With: Address: When: Darius FISCHER, SIERRA Ayala [address] [address] Within 2 to 4 weeks [...] STAY New Medications [id number], [address] [facility] [place] [id number], [phone] atorvastatin (atorvastatin 40 mg Tab) 1 Tablets [...] Leaflets: You may receive a survey from [employer] asking you to rate your care experience. Your feedback is important and will help us understand what we do well and how we can improve the quality of care we provide to you, your loved ones and our community. It???s an honor to serve you. Thank you for choosing [facility] Interdisciplinary Note - Junaid e Manageron 05-16-2024 Interdisciplinary Note - Chemist Assistant Interdisciplinary Note - Chemist Assistant This SW rounded with patient today. He [...] Paramedicine. Family will transport him at d/c. [facility] Comment on above: Result Comment: Elec tronically Signed By: Lori MONTERO, Sanaz Collins.br\Date and Time Signed: 05/16/24 11:16 EST Interdisciplinary Note - Denisse n 05-16-2024 Interdisciplinary Note - OT Interdisciplinary Note - OT OT [facility] six clicks score 23/ = no further OT needs. Patient is modified Ind w/ basic adls and transfers in room and declines further OT needs. DC inpatient OT services. Normal [facility] Lipid Panelon 05-16-2024 Cholesterol [Mass/Vol] 122 mg/dL Normal 120-200 [facility] Comment on above: Performed By: #### 2 [id number] #### [facility] [address] [place] [address] Cholesterol in HDL [Mass/Vol] 46 mg/dL Invalid Interpretation Code [facility] Comment on above: Result Comment: '>= 60 LOW RISK' '<= 40 HIGH RISK' Performed By: #### 2 [id number] #### [facility] [address] [place] [address] Cholesterol in LDL [Mass/Vol] 70 mg/dL Normal <=129 [facility] Comment on above: Performed By: #### 2 896687 #### [facility] [address] [place] [address] Cholesterol in VLDL [Mass/Vol] 14 mg/dL Normal 7-40 [facility] Comment on above: Performed By: #### 2 285887 #### [facility] [address] [place] [address] Triglyceride [Mass/Vol] 71 mg/dL Normal <=149 [facility] Comment on above: Performed By: #### 2 269167 #### [facility] [address] [place] [address] eGFRon 05-16-2024 eGFR 95 mL/min/1.73 m2 Normal >=59 [facility] Comment on above: Performed By: #### 1 [id number] #### [facility] [address] [place] [address] BB Draw & Holdon 05-15-2024 BB D&H Sample drawn for Blood Ba Normal [facility] Comment on above: Performed By: #### 1 [id number] #### [facility] [address] [place] [address] CBC w/ Auto Diffon 4 Basophils/100 WBC (Bld) 0.5 % Normal 0.0-2.0 [facility] Comment on above: Performed By: #### 2 359731 #### [facility] [address] [place] [address] Basophils/Leukocytes Auto (Bld) [Pure # fraction] 0.0 E9/L Normal 0.0-0.2 [facility] Comment on above: Performed By: #### 2 178940 #### [facility] [address] [place] [address] Eosinophils (Bld) [#/Vol] 0.0 E9/L Normal 0.0-0.5 [facility] Comment on above: Performed By: #### 2 394806 #### [facility] [address] [place] [address] Eosinophils/100 WBC (Bld) 0.3 % Normal 0.0-8.0 [facility] Comment on above: Performed By: #### 2 290731 #### [facility] [address] [place] [address] Erythrocyte distribution width (RBC) [Ratio] 14.8 % High 10.9-14.2 [facility] Comment on above: Performed By: #### 2 045725 #### [facility] [address] [place] [address] Hematocrit (Bld) [Volume fraction] 39.4 % Normal 37.7-49.0 [facility] Comment on above: Performed By: #### 2 [id number] #### [facility] [address] [place] [address] Hemoglobin (Bld) [Mass/Vol] 13.3 g/dL Low 13.5-17.5 [facility] Comment on above: Performed By: #### 2 654483 #### [facility] [address] [place] [address] Lymphocytes (Bld) [#/Vol] 1.5 E9/L Normal 1.0-4.0 [facility] Comment on above: Performed By: #### 2 121043 #### [facility] [address] [place] [address] Lymphocytes/100 WBC (Bld) 29.8 % Normal 14.0-50.0 [facility] Comment on above: Performed By: #### 2 [id number] #### [facility] [address] [place] [address] MCH (RBC) [Entitic mass] 34.7 pg High 27.0-34.0 [facility] Comment on above: Performed By: #### 2 030111 #### [facility] [address] [place] [address] MCHC (RBC) [Mass/Vol] 33.7 g/dL Normal 31.4-36.0 [facility] Comment on above: Performed By: #### 2 529100 #### [facility] [address] [place] [address] MCV (RBC) [Entitic vol] 103.0 fL High 80.0-100.0 [facility] Comment on above: Performed By: #### 2 387215 #### [facility] [address] [place] [address] Monocytes (Bld) [#/Vol] 0.8 E9/L Normal 0.2-1.0 [facility] Comment on above: Performed By: #### 2 458204 #### [facility] [address] [place] [address] Neutrophils (Bld) [#/Vol] 2.7 E9/L Normal 2.0-7.5 [facility] Comment on above: Performed By: #### 2 991072 #### [facility] [address] [place] [address] Neutrophils/100 WBC (Bld) 52.8 % Normal 36.0-75.0 [facility] Comment on above: Performed By: #### 2 441987 #### [facility] [address] [place] [address] Platelet mean volume (Bld) [Entitic vol] 10.5 fL Normal 6.4-10.8 [facility] Comment on above: Performed By: #### 2 [id number] #### [facility] [address] [place] [address] Platelets (Bld) [#/Vol] 94.0 E9/L Low 150.0-500.0 [facility] Comment on above: Performed By: #### 2 043985 #### [facility] [address] [place] [address] RBC (Bld) [#/Vol] 3.8 E12/L Low 4.3-5.9 [facility] Comment on above: Performed By: #### 2 275387 #### [facility] [address] [place] [address] WBC corrected for nucl RBC Auto (Bld) [#/Vol] 5.1 E9/L Normal 4.0-11.0 [facility] Comment on above: Performed By: #### 2 [id number] #### [facility] [address] [place] [address] CHEMISTRYOrdered By: Lab ROP User on 05-15-2024 Glucose [Mass/Vol] 79 mg/dL Normal 55 - 99 mg/dL [facility] POC Subsection POC Device SN [id number] Invalid Interpretation Code [facility] POC Subsection POC User ID [id number] 1 Invalid Interpretation Code [facility] POC Subsection POC Username [place] Invalid Interpretation Code [facility] POC Subsection CHEMISTRYOrdered By: SYSTEM SYSTEM on [...] Sensitivity Troponin I Instructions For Use, Marilyn Westerly, December 2017) Urea nitrogen [Mass/Vol] 17 mg/dL Normal 5 - 21 mg/dL Remisol Chem Urea nitrogen/Creatinine [Mass ratio] 19 mg/mg Normal 10 - 20 Remisol Chem CMPon 05-15-2024 Albumin [Mass/Vol] 4.0 g/dL Normal 3.3-5.0 [facility] Comment on above: Performed By: #### 2 [id number] #### [facility] [address] [place] [address] Albumin/Globulin (S) [Mass conc ratio] 1.4 Normal 1.1-2.2 [facility] Comment on above: Performed By: #### 2 416203 #### [facility] [address] [place] [address] ALP [Catalytic activity/Vol] 62 Int._Unit/L Normal 21-98 [facility] Comment on above: Performed By: #### 2 [id number] #### [facility] [address] [place] [address] ALT No additional P-5'-P [Catalytic activity/Vol] 10 Int._Unit/L Normal 6-46 [facility] Comment on above: Performed By: #### 2 717096 #### [facility] [address] [place] [address] Anion gap [Moles/Vol] 8 mmol/L Normal 6-16 [facility] Comment on above: Performed By: #### 2 721940 #### [facility] [address] [place] [address] AST [Catalytic activity/Vol] 17 Int._Unit/L Normal 5-43 [facility] Comment on above: Performed By: #### 2 374115 #### [facility] [address] [place] [address] Bilirubin [Mass/Vol] 0.9 mg/dL Normal 0.0-1.1 [facility] Comment on above: Performed By: #### 2 292729 #### [facility] [address] [place] [address] Calcium [Mass/Vol] 8.7 mg/dL Low 8.9-11.1 [facility] Comment on above: Performed By: #### 2 090233 #### [facility] [address] [place] [address] Chloride [Moles/Vol] 105 mmol/L Normal 101-111 [facility] Comment on above: Performed By: #### 2 [id number] #### [facility] [address] [place] [address] CO2 [Moles/Vol] 29 mmol/L Normal 21-31 [facility] Comment on above: Performed By: #### 2 210262 #### [facility] [address] [place] [address] Creatinine [Mass/Vol] 0.9 mg/dL Normal 0.5-1.3 [facility] Comment on above: Performed By: #### 2 576506 #### [facility] [address] [place] [address] Globulin (S) [Mass/Vol] 2.8 g/dL Normal 1.4-4.0 [facility] Comment on above: Performed By: #### 2 190785 #### [facility] [address] [place] [address] Glucose [Mass/Vol] 89 mg/dL Normal 55-199 [facility] Comment on above: Performed By: #### 2 547407 #### [facility] [address] [place] [address] Potassium [Moles/Vol] 4.3 mmol/L Normal 3.5-5.3 [facility] Comment on above: Performed By: #### 2 405665 #### [facility] [address] [place] [address] Protein [Mass/Vol] 6.8 g/dL Normal 6.0-7.8 [facility] Comment on above: Performed By: #### 2 [id number] #### [facility] [address] [place] [address] Sodium [Moles/Vol] 138 mmol/L Normal 135-145 [facility] Comment on above: Performed By: #### 2 [id number] #### [facility] [address] [place] [address] Urea nitrogen [Mass/Vol] 17 mg/dL Normal 5-21 [facility] Comment on above: Performed By: #### 2 [id number] #### [facility] [address] [place] [address] Urea nitrogen/Creatinine [Mass ratio] 19 No Units Normal 10-20 [facility] Comment on above: Performed By: #### 2 [id number] #### [facility] [address] [place] [address] COAGULATIONOrdered By: Lois Sanford on 05-15-2024 aPTT Coag (PPP) [Time] 29.6 s Normal 25.1 - 36.5 second(s) [facility] Auto Coag Comment on above: Interpretive Data: [...] the same coagulation reagent and instrumentation as [facility]. Currently there are no coagulation studies available worldwide for children to 14 days, and no normal ranges. Heparin therapeutic range (represented by Anti-Factor Xa activity of 0.2 - 0.4 U/mL) corresponds to PTT of 56.6 - 109.0 sec. INR Coag (PPP) [Relative time] 1.08 {INR} Invalid Interpretation Code [facility] Auto Coag Comment on above: Interpretive Data: I NR results are specifically intended to assess patients stabilized on long-term Anticoagulation therapy suggested INR s Less Intensive Anticoagulation 2.0 3.0 Conventional Range 3.0 4.5 PT Coag (PPP) [Time] 12.1 s Normal 9.4 - 1 2.5 second(s) [facility] Auto Coag Comment on above: Interpretive Data: [...] the same coagulation reagent and instrumentation as [facility]. Currently there are no coagulation studies available [...] acute intra or extra axial findings. Normal [facility] Capillary Glucose POCon - Glucose [Mass/Vol] 79 mg/dL Normal 55-99 [facility] Comment on above: Performed By: #### 2 [id number] #### [facility] [address] [place] [address] ED Clinical Summaryon 2023 ED Clinical Summary ED Clinical Summary [address] [address] ED Clinical Summary Person Information Name: NORY DSOUZA [place] Age: 69 Years : 1955 Sex: Male Language: Angolan PCP: DOUG ARTEAGA MD Marital Status: Phone: Visit Id: Visit Reason: Weakness or fatigue; Paresthesia; LEFT SIDE TIGGLING Speciality: Acuity: 2 Enc Type: Observation Med Service: Medical Arrival: 05/15/2024 14:52:20 Discharge: LOS: 000 03:01 Checkin: 05/15/2024 14:52:20 Checkout: 05/15/2024 17:53:33 Dispo Type: Admitted as IP to this [facility] EVENTS: Event Name Event Status Request [...] 05/15/2024 17:53:33 05/15/2024 17:53:33 05/15/2024 17:53:33 ADDRESS: [address] [place] [id number] PHYS DOC NOTES: MEDICAL INFORMATION: Prescriptions Given: [...] (hypertension); 4:GERD (gastroesophageal reflux disease); 5:Smoker Normal [facility] ED Note-Physicianon 05-15-20 ED Note-Physician [...] of prostate cancer Frequent urination 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 Normal [facility] Comment on above: Result Comment: Elec tronically Signed By: Robson Cartwright DO\.br\Date and Time Signed: 05/15/24 16:11 EST ED Patient Education Noteon 05-15-2024 ED Patient Education Note ED Patient Education Note Normal [facility] ED Patient Summaryon 024 ED Patient Summary ED Patient Summary [place] [address] Patient Discharge Instructions Person Information Name: NORY DSOUZA Age: 69 Years Arrival Date: 05/15/2024 14:52:20 Discharge Diagnosis: 2:Hyperlipidemia; 3:HTN (hypertension); 4:GERD (gastroesophageal reflux disease); 5:Smoker Primary Care Physician: DOUG ARTEAGA MD Provider Information Primary Provider: Robson Cartwright DO Advanced Fibrous Plasterer:None The exam and treatment you received in the Emergency Department were for an urgent problem and are not intended as complete care. It is important that you follow up with a doctor, nurse practitioner, or physician???s outpatient physical therapist assistant for ongoing care. If your symptoms [...] opioids can be used to help relieve brterowl-ur-ifqhld pain and are often prescribed following a [...] be struggling with addiction, tell your health customer care voice consultant and ask for guidance or call [facility]???S National Helpline at 4-874-035-THNP. t Source: [place] (more content not included)... Normal [facility] HEMATOLOGYOrdered By: SYSTEM SYSTEM on [...] Coag (PPP) [Time] 29.6 second(s) Normal 25.1-36.5 [facility] Comment on above: Result Comment: [...] the same coagulation reagent and instrumentation as [facility]. Currently there are no coagulation studies available worldwide for children to 14 days, and no normal ranges. Heparin therapeutic range (represented by Anti-Factor Xa activity of 0.2 - 0.4 U/mL) corresponds to PTT of 56.6 - 109.0 sec. Performed By: #### 1 [id number] #### [facility] [address] [place] [address] INR Coag (PPP) [Relative time] 1.08 {INR} Invalid Interpretation Code [facility] Comment on above: Result Comment: INR results are specifically intended to assess patients stabilized on long-term Anticoagulation therapy suggested INR???s ???Less Intensive Anticoagulation??? 2.0 ??? 3.0 Conventional Range 3.0 ??? 4.5 Performed By: #### 1 [id number] #### [facility] [address] [place] [address] PT Coag (PPP) [Time] 12.1 second(s) Normal 9.4-12.5 [facility] Comment on above: Result Comment: [...] the same coagulation reagent and instrumentation as [facility]. Currently there are no coagulation studies available worldwide for children to 14 days, and no normal ranges. Performed By: #### 1 [id number] #### [facility] [address] [place] [address] Troponin 0 Hr.on 05-15-2024 Troponin HS 5.80 pg/mL Low 15.90-38.40 [facility] Comment on above: Result Comment: The 95% CI (Confidence Interval) PPV (Positive Predictive Value) for myocardial infarction in females is 38 pg/mL, in males 51 pg/mL. The results should be used in conjunction with clinical conditions of myocardial infarction. (Access High Sensitivity Troponin I Instructions For Use, [employer], December 2017) Performed By: #### 1 [id number] #### [facility] [address] [place] [id number] UA with Cult Rflxon 05-15-20 24 Bilirubin Ql (U) Negative Normal Negative [facility] Comment on above: Performed By: #### 4 [id number] #### [facility] [address] [place] [address] Clarity (U) Clear Normal Clear [facility] Comment on above: Performed By: #### 4 [id number] #### [facility] [address] [place] [address] Color (U) Light-Yellow Normal Yellow [facility] Comment on above: Result Comment: Micr oscopic readings are only performed on those samples that meet specific criteria set forth by [facility]. Performed By: #### 4 [id number] #### [facility] [address] [place] [address] Glucose Ql (U) Negative Normal Negative [facility] Comment on above: Performed By: #### 4 [id number] #### [facility] [address] [place] [address] Hemoglobin Auto test strip (U) [Mass/Vol] Trace Abnormal Negative [facility] Comment on above: Performed By: #### 4 [id number] #### [facility] [address] [place] [address] Ketones Auto test strip Ql (U) Negative Normal Negative [facility] Comment on above: Performed By: #### 4 [id number] #### [facility] [address] [place] [address] Leukocyte esterase Auto test strip Ql (U) Negative Normal Negative [facility] Comment on above: Performed By: #### 4 [id number] #### [facility] [address] [place] [address] Nitrite Auto test strip Ql (U) Negative Normal Negative [facility] Comment on above: Performed By: #### 4 [id number] #### [facility] [address] [place] [address] pH (U) 7.0 [pH] Invalid Interpretation Code 5.0-9.0 [facility] Comment on above: Performed By: #### 4 [id number] #### [facility] [address] [place] [address] Protein Ql (U) Negative Normal Negative [facility] Comment on above: Performed By: #### 4 [id number] #### [facility] [address] [place] [address] Specific gravity (U) [Rel density] 1.023 Invalid Interpretation Code 1.005-1.030 [facility] Comment on above: Performed By: #### 4 [id number] #### [facility] [address] [place] [address] Urobilinogen (U) [Mass/Vol] 2 mg/dL Abnormal Negative [facility] Comment on above: Performed By: #### 4 [id number] #### [facility] [address] [place] [address] Type of Urine collection method Clean Catch Normal [facility] Comment on above: Performed By: #### 4 [id number] #### [facility] [address] [place] [address] URINALYSISOrdered By: SYSTEM SYSTEM on 05-15-2024 Bilirubin Ql (U) Negative Normal Negativemg/ d L [facility] UA Auto SS Clarity (U) Clear (05/15/24 4:46 PM) Normal Clear [facility] UA Auto SS Color (U) Light-Yellow 1 (05/15/24 4:46 PM) Normal Yellow [facility] UA Auto SS Comment on above: Interpretive Data: M icroscopic readings are only performed on those samples that meet specific criteria set forth by [facility]. Glucose Ql (U) Negative [...] Desc Clean Catch (05/15/24 4:46 PM) Normal [facility] UA Auto SS XR Chest Single Viewon [...] Signed by: Asher Abad M.D. Transcribed by: BALDOMREO Technologist: MUKUL Technical Comments Radiation Dose: Kar in mGy = na DAP = na Normal [facility] eGFRon 05-15-2024 eGFR 91 mL/min/1.73 m2 Normal >=59 [facility] Comment on above: Performed By: #### 1 [id number] #### [facility] [address] [place] [address] Brain Natri. Peptideon 03-23 Natriuretic peptide B (Bld) [Mass/Vol] 143 pg/mL Normal <300 [facility] Comment on above: Result Comment: An age-independent cutoff point of 300 pg/ml has a 98% negative predictive value excluding acute heart failure. Performed By: #### B BOILERS AND PRESSURE VESSELS INSPECTOR #### [facility] [address] [place] [address] Satellite Manager: Juanjose Osorio MD Vascular duplex lower extrem ity venous lefton 03-23-2024 Left lower extremity edema without DVT. [facility] EXAM: VAS DUP LOWER EXTREMITY [...] left groin. 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 During the study longitudinal and transverse views were obtained. Pulsed wave doppler was performed. [facility] Sajan Sanchez Jr., MD - [...] IMPRESSION: Left lower extremity edema without DVT. [facility] Radiology Study observation (narrative) [facility] Vascular duplex lower extrem ity venous leftOrdered By: Sajan Sanchez on 03-23-2024 [facility] Work Phone: Basic Metabolic Profon 11-15 Anion gap [Moles/Vol] 6 mmol/L Low 9-17 [facility] Comment on above: Performed By: #### B MP #### [facility] [address] [place] [address] Satellite Manager: Juanjose Osorio MD BUN/CRE Ratio 18 Normal 9-20 [facility] Comment on above: Performed By: #### B MP #### [facility] [address] [place] [address] Satellite Manager: Juanjose Osorio MD Calcium [Mass/Vol] 9.3 mg/dL Normal 8.6-10.4 [facility] Comment on above: Performed By: #### B MP #### [facility] [address] [place] [address] Satellite Manager: Juanjose Osorio MD Chloride [Moles/Vol] 103 mmol/L Normal 98-107 [facility] Comment on above: Performed By: #### B MP #### [facility] [address] [place] [address] Satellite Manager: Juanjose Osorio MD CO2 [Moles/Vol] 30 mmol/L Normal 20-31 [facility] Comment on above: Performed By: #### B MP #### [facility] [address] [place] [address] Satellite Manager: Juanjose Osorio MD Creatinine [Mass/Vol] 0.9 mg/dL Normal 0.7-1.2 [facility] Comment on above: Performed By: #### B MP #### [facility] [address] [place], [place] [id number] Satellite Manager: Juanjose Osorio MD GFR/1.73 sq M.predicted among non-blacks MDRD (S/P/Bld) [Vol rate/Area] mL/min/{1.73_m2} Normal >60 [facility] Comment on above: Result Comment: These [...] secretion. Performed By: #### B MP #### [facility] [address] [place], [place] [id number] Satellite Manager: Juanjose Osorio MD Glucose [Mass/Vol] 88 mg/dL Normal 70-99 [facility] Comment on above: Performed By: #### B MP #### [facility] [address] [place], [place] [id number] Satellite Manager: Juanjose Osorio MD Potassium [Moles/Vol] 4.2 mmol/L Normal 3.7-5.3 [facility] Comment on above: Performed By: #### B MP #### [facility] [address] [place], [place] [id number] Satellite Manager: Juanjose Osorio MD Sodium [Moles/Vol] 139 mmol/L Normal 135-144 [facility] Comment on above: Performed By: #### B MP #### [facility] [address] [place], [place] [id number] Satellite Manager: Juanjose Osorio MD Urea nitrogen [Mass/Vol] 16 mg/dL Normal 8-23 [facility] Comment on above: Performed By: #### B MP #### [facility] [address] [place], [place] [id number] Satellite Manager: Juanjose Osorio MD PSA, Screeningon 11-16-2023 Prostatic Spec. Ag 1.10 ng/mL Normal 0.00-4.00 [facility] Comment on above: Result Comment: The Apollo ECLIA assay is used. Results obtained with different assay methods cannot be used interchangeably. Performed By: #### P SAS #### [facility] [employer] [facility] [place] [id number] Satellite Manager: Sudhir Cheng MD CT Chest for screeningon Lung RADS 1, negative. Management: Low-dose CT chest one year. [facility] EXAM: CT LUNG SCREENING (INITIAL/ANNUAL) [...] lingula. CORONARY ARTERIES: Coronary calcifications are moderate. [facility] Radiology Study observation (narrative) [facility] CT Chest for screeningOrdere d By: Sajan Sanchez on 11-02-2023 [facility] Work Phone: CT LUNG SCREENING (INITIAL/A NNUAL)on [...] Sanchez Jr., MD 11/02/23 Final result Normal [facility] Vascular AAA screeningon FINDINGS/IMPRESSION: 1. Greatest transverse diameter of the aorta is 2.4 cm. 2. The iliac arteries are normal at 1.2 cm on the right and 1.2 cm on the left. 3. Occasional plaque is identified. 4. No abdominal aortic aneurysm. [facility] EXAM: VAS AAA SCREENING HISTORY: Screening for AAA COMPARISON: 07/12/2014 CT abdomen and pelvis. [facility] Sajan Sanchez Jr., MD - 11/02/2023 EXAM: VAS AAA SCREENING HISTORY: Screening for AAA COMPARISON: 07/12/2014 CT abdomen and pelvis. IMPRESSION: FINDINGS/IMPRESSION: 1. Greatest transverse diameter of the aorta is 2.4 cm. 2. The iliac arteries are normal at 1.2 cm on the right and 1.2 cm on the left. 3. Occasional plaque is identified. 4. No abdominal aortic aneurysm. [facility] Radiology Study observation (narrative) [facility] Vascular AAA screeningOrdere d By: Sajan Sanchez on 11-02-2023 [facility] Work Phone: Basic Metabolic Profon 06-28 Anion gap [Moles/Vol] 9 mmol/L Normal 9-17 [facility] Comment on above: Performed By: #### B MP #### [facility] [address] [place] [address] Satellite Manager: Juanjose Osorio MD BUN/CRE Ratio 23 High 9-20 [facility] Comment on above: Performed By: #### B MP #### [facility] [address] [place], [place] [id number] Satellite Manager: Juanjose Osorio MD Calcium [Mass/Vol] 8.7 mg/dL Normal 8.6-10.4 [facility] Comment on above: Performed By: #### B MP #### [facility] [address] [place], [place] [id number] Satellite Manager: Juanjose Osorio MD Chloride [Moles/Vol] 102 mmol/L Normal 98-107 [facility] Comment on above: Performed By: #### B MP #### [facility] [address] [place], [place] [id number] Satellite Manager: Juanjose Osorio MD CO2 [Moles/Vol] 26 mmol/L Normal 20-31 [facility] Comment on above: Performed By: #### B MP #### [facility] [address] [place] [address] Satellite Manager: Juanjose Osorio MD Creatinine [Mass/Vol] 0.7 mg/dL Normal 0.7-1.2 [facility] Comment on above: Performed By: #### B MP #### [facility] [address] [place], [place] [phone] Satellite Manager: Juanjose Osorio MD GFR/1.73 sq M.predicted among non-blacks MDRD (S/P/Bld) [Vol rate/Area] mL/min/{1.73_m2} Normal >60 [facility] Comment on above: Result Comment: These [...] secretion. Performed By: #### B MP #### [facility] [address] [place], [place] [id number] Satellite Manager: Juanjose Osorio MD Glucose [Mass/Vol] 91 mg/dL Normal 70-99 [facility] Comment on above: Performed By: #### B MP #### [facility] [address] [place], [place] [id number] Satellite Manager: Juanjose Osorio MD Potassium [Moles/Vol] 4.4 mmol/L Normal 3.7-5.3 [facility] Comment on above: Performed By: #### B MP #### [facility] [address] [place], [place] [id number] Satellite Manager: Juanjose Osorio MD Sodium [Moles/Vol] 137 mmol/L Normal 135-144 [facility] Comment on above: Performed By: #### B MP #### [facility] [address] [place], [place] [id number] Satellite Manager: Juanjose Osorio MD Urea nitrogen [Mass/Vol] 16 mg/dL Normal 8-23 [facility] Comment on above: Performed By: #### B MP #### [facility] [address] [place], [place] [phone] Satellite Manager: Juanjose Osorio MD XR CHEST (2 VW)on [...] Brittany Chester MD 06/28/23 Final result Normal [facility] CHEMISTRYOrdered By: SYSTEM SYSTEM on 11-27-2022 Anion gap [Moles/Vol] 10 mmol/L Normal 6 - 16 mEq/L F [facility] Remisol Calcium [Mass/Vol] 8.9 mg/dL Normal 8.9 - 11. 1 mg/dL [facility] Chloride [Moles/Vol] 104 mmol/L Normal 101 - 1 11 mmol/L [facility] CO2 [Moles/Vol] 26 mmol/L Normal 21 - 31 mmol/L [facility] Creatinine [Mass/Vol] 1.0 mg/dL Normal 0.5 - 1.3 mg/dL [facility] GFR/1.73 sq M.predicted among non-blacks MDRD (S/P/Bld) [Vol rate/Area] 81 mL/min/1.73 m2 Normal >=59mL/min/1 .73 m2 [facility] Chem S Glucose [Mass/Vol] 88 mg/dL Normal [...] 25 pg/mL Normal 5 - 80 pg/mL [facility] HemeManSS COAGULATIONOrdered By: Arpit Quinonez on 11-27-2022 aPTT Coag (PPP) [Time] 31.9 s Normal 25.1 - 36.5 second(s) [facility] Auto Coag INR Coag (PPP) [Relative time] [...] Interpretation Code Negative [facility] UA Auto SS [place].plasma/Lithiu m.RBC (Bld) [Mass ratio] 0-3 /HPF Normal [...] PM) Invalid Interpretation Code 1.005 - 1.030 [facility] UA Auto SS UA Spec Desc Clean Catch (11/27/22 6:30 PM) Normal [facility] UA Auto SS Urobilinogen Qn (U) 0.4186467 {[place]y'U}/dL Normal 0.0 - 1.0 EU/dL [facility] UA Auto SS WBC Auto Ql (U) 1+ *ABN* (11/27/22 6:30 PM) Invalid Interpretation Code Negative [facility] UA Auto SS WBC LM.HPF (Urine sed) [#/Area] 6-15 /HPF Invalid Interpretation Code 0-5/HPF [facility] UA Auto SS LIPID PROFILEon 10-11-2022 CHOL-HDL RATIO NORM SEE BELOW Normal [facility] Comment on above: Result Comment: 3.3 - 4.4 LOW RISK 4.4 - 7.1 AVERAGE RISK 7.1 - 11.0 MODERATE RISK >11.0 HIGH RISK Performed By: #### C MP, LIPID #### [facility] [address] [place] [address] Dr. Rufina Ramirez Cholesterol [Mass/Vol] 122 mg/dL Normal <=200 [facility] Comment on above: Performed By: #### C MP, LIPID #### [facility] [address] [place] [address] Dr. Rufina Ramirez Cholesterol in HDL [Mass/Vol] 42 mg/dL Normal 40-60 [facility] Comment on above: Performed By: #### C MP, LIPID #### [facility] [address] [place] [address] [address] Rufina Ramirez Cholesterol in LDL [Mass/Vol] 70.2 mg/dL Normal [facility] Comment on above: Performed By: #### C MP, LIPID #### [facility] [address] [place] [address] Dr. Rufina Ramirez Cholesterol.total/Cho lesterol in HDL [Mass ratio] 2.9 {ratio} Normal [facility] Comment on above: Performed By: #### C MP, LIPID #### [facility] [address] [place] [address] Dr. Rufina Ramirez HDL NORMAL > or = 60 mg/dl - LOW CARDIOVASCULAR RISK <40 mg/dl - HIGH CARDIOVASCULAR RISK Normal [facility] Comment on above: Performed By: #### C MP, LIPID #### [facility] [address] [place] [address] [address] Rufina Ramirez LDL CALC NORMAL SEE BELOW Normal [facility] Comment on above: Result Comment: <100 mg/dl OPTIMAL 100 - 129 mg/dl NEAR OR ABOVE OPTIMAL 130 - 159 mg/dl BORDERLINE HIGH 160 - 189 mg/dl HIGH >190 mg/dl VERY HIGH Performed By: #### C MP, LIPID #### [facility] [address] [place] [address] [address] Rufina Ramirez Triglyceride [Mass/Vol] 49 mg/dL Normal <=150 [facility] Comment on above: Performed By: #### C MP, LIPID #### [facility] [address] [place] [address] [address] Rufina Ramirez VLDL CALC 9.8 mg/dL Normal [facility] Comment on above: Performed By: #### C MP, LIPID #### [facility] [address] [place] [address] [address] Rufina Ramirez PROF 14(COMP METB)on 023 Albumin [Mass/Vol] 3.3 g/dL Critically low 3.4-5.0 Th [facility] Comment on above: Performed By: #### C MP, LIPID #### [facility] [address] [place] [address] [address] Rufina Ramirez Albumin/Globulin [Mass ratio] 0.9 {ratio} Normal [facility] Comment on above: Performed By: #### C MP, LIPID #### [facility] [address] [place] [address] [address] Rufina Ramirez ALP [Catalytic activity/Vol] 71 U/L Normal 46-116 [facility] Comment on above: Performed By: #### C MP, LIPID #### [facility] [address] [place] [address] [address] Rufina Ramirez ALT [Catalytic activity/Vol] 17 U/L Normal 16-63 [facility] Comment on above: Performed By: #### C MP, LIPID #### [facility] [address] [place] [address] [address] Rufina Ramirez Anion gap [Moles/Vol] 10.5 mmol/L Normal [facility] Comment on above: Performed By: #### C MP, LIPID #### [facility] [address] [place] [address] [address] Rufina Raimrez AST [Catalytic activity/Vol] 16 U/L Normal 15-37 [facility] Comment on above: Performed By: #### C MP, LIPID #### [facility] [address] [place] [address] [address] Rufina Ramirez Bilirubin [Mass/Vol] 0.8 mg/dL Normal 0.2-1.0 [facility] Comment on above: Performed By: #### C MP, LIPID #### [facility] [address] [place] [address] Dr. Rufina Ramirez Calcium [Mass/Vol] 8.8 mg/dL Normal 8.5-10.1 [facility] Comment on above: Performed By: #### C MP, LIPID #### [facility] [address] [address] [address] Rufina Ramirez Chloride [Moles/Vol] 104 mmol/L Normal 98-107 [facility] Comment on above: Performed By: #### C MP, LIPID #### [facility] [address] [place] [address] Dr. Rufina Ramirez CO2 [Moles/Vol] 30.7 mmol/L Normal 21.0-32.0 [facility] Comment on above: Performed By: #### C MP, LIPID #### [facility] [address] [address] [address] Rufina Ramirez Creatinine [Mass/Vol] 0.93 mg/dL Normal 0.70-1.30 [facility] Comment on above: Performed By: #### C MP, LIPID #### [facility] [address] [place] [address] Dr. Rufina Ramirez EGFR-AF RWANDAN >60 Normal >=60 [facility] Comment on above: Performed By: #### C MP, LIPID #### [facility] [address] [address] [address] Rufina Ramirez EGFR-NON AF RWANDAN >60 Normal >=60 [facility] Comment on above: Performed By: #### C MP, LIPID #### [facility] [address] [address] [address] Rufina Ramirez Globulin (S) [Mass/Vol] 3.6 g/dL Normal [facility] Comment on above: Performed By: #### C MP, LIPID #### [facility] [address] [address] [address] Rufina Ramirez Glucose [Mass/Vol] 95 mg/dL Normal 74-106 [facility] Comment on above: Performed By: #### C MP, LIPID #### [facility] [address] [place] [address] Dr. Rufina Ramirez Potassium [Moles/Vol] 4.2 mmol/L Normal 3.5-5.1 [facility] Comment on above: Performed By: #### C MP, LIPID #### [facility] [address] [address] [address] Rufina Ramirez Protein [Mass/Vol] 6.9 g/dL Normal 6.4-8.2 [facility] Comment on above: Performed By: #### C MP, LIPID #### [facility] [address] [place] [address] Dr. Rufina Ramirez Sodium [Moles/Vol] 141 mmol/L Normal 136-145 [facility] Comment on above: Performed By: #### C MP, LIPID #### [facility] [address] [address] [address] Rufina Ramirez Urea nitrogen [Mass/Vol] 16.0 mg/dL Normal 7.0-18.0 [facility] Comment on above: Performed By: #### C MP, LIPID #### [facility] [address] [address] [address] Rufina Ramirez Urea nitrogen/Creatinine [Mass ratio] 17.2 mg/mg Normal [facility] Comment on above: Performed By: #### C MP, LIPID #### [facility] [address] [address] [address] Rufina Ramirez CBC AUTO DIFFon 06-26-2022 BASO # 0.0 103/ul Normal 0.0-0.1 [facility] Comment on above: Performed By: #### C BC #### [facility] [address] [address] [address] Rufina Ramirez Basophils/100 WBC (Bld) 0.4 % Normal 0.2-2.0 [facility] Comment on above: Performed By: #### C BC #### [facility] [address] [place] [address] Dr. Rufina Ramirez EO # 0.0 103/ul Normal 0.0-0.7 [facility] Comment on above: Performed By: #### C BC #### [facility] [address] [place] [address] Dr. Rufina Ramirez Eosinophils/100 WBC (Bld) 0.4 % Critically low 0.9-7.0 [facility] Comment on above: Performed By: #### C BC #### [facility] [address] [place] [address] Dr. Rufina Ramirez Erythrocyte distribution width (RBC) [Ratio] 13.2 % Normal 11.0-15.0 [facility] Comment on above: Performed By: #### C BC #### [facility] [address] [place] [address] Dr. Rufina Ramirez Hematocrit (Bld) [Volume fraction] 39.3 % Critically low 42.0-54.0 [facility] Comment on above: Performed By: #### C BC #### [facility] [address] [place] [address] Dr. Rufina Ramirez Hemoglobin (Bld) [Mass/Vol] 13.7 g/dL Critically low 14.0-18.0 [facility] Comment on above: Performed By: #### C BC #### [facility] [address] [place] [address] Dr. Rufina Ramirez IG # 0.01 10e3/ul Normal 0.00-0.03 [facility] Comment on above: Performed By: #### C BC #### [facility] [address] [place] [address] Dr. Rufina Ramirez IG % 0.2 % Normal 0.0-0.5 [facility] Comment on above: Performed By: #### C BC #### [facility] [address] [place] [address] Dr. Rufina Ramirez LYMPH # 1.8 103/ul Normal 1.2-3.8 [facility] Comment on above: Performed By: #### C BC #### [facility] [address] [place] [address] Dr. Rufina Ramirez Lymphocytes/100 WBC (Bld) 31.6 % Normal 20.5-60.0 [facility] Comment on above: Performed By: #### C BC #### [facility] [address] [place] [address] Dr. Rufina Ramirez MANUAL DIFF REQ NO Normal [facility] Comment on above: Performed By: #### C BC #### [facility] [address] [place] [address] Dr. Rufina Ramirez MCH (RBC) [Entitic mass] 32.9 pg Normal 25.9-34.0 [facility] Comment on above: Performed By: #### C BC #### [facility] [address] [place] [address] Dr. Rufina Ramirez MCHC (RBC) [Mass/Vol] 34.9 g/dL Normal 29.9-35.2 [facility] Comment on above: Performed By: #### C BC #### [facility] [address] [place] [address] Dr. Rufina Ramirez MCV (RBC) [Entitic vol] 94.5 fL Critically high 80.0-94.0 [facility] Comment on above: Performed By: #### C BC #### [facility] [address] [place] [address] Dr. Rufina Ramirez MONO # 0.5 103/ul Normal 0.3-0.8 [facility] Comment on above: Performed By: #### C BC #### [facility] [address] [address] [address] Rufina Ramirez Monocytes/100 WBC (Bld) 8.5 % Normal 1.7-12.0 [facility] Comment on above: Performed By: #### C BC #### [facility] [address] [address] [address] Rufina Ramirez NEUT # 3.3 103/ul Normal 1.4-6.5 [facility] Comment on above: Performed By: #### C BC #### [facility] [address] [address] [address] Rufina Ramirez Neutrophils/100 WBC (Bld) 58.9 % Normal 43.0-75.0 [facility] Comment on above: Performed By: #### C BC #### [facility] [address] [place] [address] Dr. Rufina Ramirez Platelet mean volume (Bld) [Entitic vol] 12.1 fL Normal 9.5-13.5 [facility] Comment on above: Performed By: #### C BC #### [facility] [address] [place] [address] Dr. Rufina Ramirez PLT 109 103/ul Critically low 150-450 [facility] Comment on above: Performed By: #### C BC #### [facility] [address] [place] [address] Dr. Rufina Ramirez RBC 4.16 106/ul Critically low 4.70-6.10 [facility] Comment on above: Performed By: #### C BC #### [facility] [address] [place] [address] Dr. Rufina Ramirez WBC 5.6 103/ul Normal 4.0-11.0 [facility] Comment on above: Performed By: #### C BC #### [facility] [address] [place] [address] Dr. Rufina Ramirez POINT OF CARE GLUCOSEon 05-31 Glucose [Mass/Vol] 97 mg/dL Normal 74-106 [facility] Comment on above: Performed By: #### P OCGLUC #### [facility] [address] [address] [address] Rufina Ramirez PROF CHEM 8 (BAS METB)on Anion gap [Moles/Vol] 11.2 mmol/L Normal Th [facility] Comment on above: Performed By: #### B MP #### [facility] [address] [place] [address] Dr. Rufina Ramirez Calcium [Mass/Vol] 8.9 mg/dL Normal 8.5-10.1 [facility] Comment on above: Performed By: #### B MP #### [facility] [address] [address] [address] Rufina Ramirez Chloride [Moles/Vol] 103 mmol/L Normal 98-107 [facility] Comment on above: Performed By: #### B MP #### [facility] [address] [place] [address] Dr. Rufina Ramirez CO2 [Moles/Vol] 27.2 mmol/L Normal 21.0-32.0 [facility] Comment on above: Performed By: #### B MP #### [facility] [address] [place] [address] Dr. Rufina Ramirez Creatinine [Mass/Vol] 0.81 mg/dL Normal 0.70-1.30 [facility] Comment on above: Performed By: #### B MP #### [facility] [address] [place] [address] Dr. Rufina Ramirez EGFR-AF RWANDAN >60 Normal >=60 [facility] Comment on above: Performed By: #### B MP #### [facility] [address] [place] [address] Dr. Rufina Ramirez EGFR-NON AF RWANDAN >60 Normal >=60 [facility] Comment on above: Performed By: #### B MP #### [facility] [address] [place] [address] Dr. Rufina Ramirez Glucose [Mass/Vol] 95 mg/dL Normal 74-106 [facility] Comment on above: Performed By: #### B MP #### [facility] [address] [place] [address] Dr. Rufina Ramirez Potassium [Moles/Vol] 4.4 mmol/L Normal 3.5-5.1 [facility] Comment on above: Performed By: #### B MP #### [facility] [address] [address] [address] Rufina Ramirez Sodium [Moles/Vol] 137 mmol/L Normal 136-145 [facility] Comment on above: Performed By: #### B MP #### [facility] [address] [address] [address] Rufina Ramirez Urea nitrogen [Mass/Vol] 17.0 mg/dL Normal 7.0-18.0 [facility] Comment on above: Performed By: #### B MP #### [facility] [address] [address] [address] Rufina Ramirez Urea nitrogen/Creatinine [Mass ratio] 21.0 mg/mg Normal [facility] Comment on above: Performed By: #### B MP #### [facility] [address] [address] [address] Rufina Ramirez CHEMISTRYOrdered By: SYSTEM SYSTEM on 05-15-2022 Troponin I.cardiac [Mass/Vol] 5.10 pg/mL Low 15.90 - 38.40 pg/mL [facility] Remisol Anion gap [Moles/Vol] 14 mmol/L Normal [...] 97.5 fL Normal 80.0 - 100.0 fL [facility] [employer] Morphology Mike (Bld) [Interp] Normal (08/30/21 6:02 AM) Normal [facility] [employer] Platelet mean volume (Bld) [Entitic vol] 11.5 fL High 6.4 - 10.8 fL [facility] [employer] Platelets (Bld) [#/Vol] 117.0 E9/L Low 150.0 - 500.0 E9/L [facility] [employer] Platelets Large LM Ql (Bld) Present (08/30/21 6:02 AM) Normal [facility] [employer]SS RBC (Bld) [#/Vol] 4.2 E12/L Low 4.3 - 5.9 E12/L [facility] [employer] WBC corrected for nucl RBC Auto (Bld) [#/Vol] 6.7 E9/L Normal 4.0 - 11.0 E9/L [facility] [employer] Reference Laboratory Testing Ordered By: Generated DomainUser on 08-30-2021 Cortisol [Mass/Vol] 1.9 ug/dL Invalid Interpretation Code [facility] [employer] Comment on above: Result Comment: Antelmo isol AM 6.2 - 19.4 Cortisol PM 2.3 - 11.9 Performed at: [facility] [id number] PhD Sachin Garcia PSA ScreeningOrdered By: Fely Arteaga on 03-05-2021 [employer] Phone: Comprehensive Metabolic Pane lOrdered By: Doug Arteaga on 02-16-2021 Albumin [Mass/Vol] 3.8 g/dL 3.5 - 5.2 g/dL [employer] Phone: Albumin/Globulin Ratio NOT REPORTED [employer] Phone: ALP (Bld) [Catalytic activity/Vol] 70 U/L 40 - 129 U/L [facility] Phone: ALT [Catalytic activity/Vol] 12 U/L 5 - 41 U/L [facility] Phone: Anion gap [Moles/Vol] 8 mmol/L Low 9 - 17 mmol/L [employer] [employer] Phone: AST [Catalytic activity/Vol] 16 U/L <40 [employer] Phone: Bilirubin [Mass/Vol] 0.61 mg/dL 0.30 - 1.20 mg/dL [employer] Phone: Calcium [Mass/Vol] 8.8 mg/dL 8.6 - 10. 4 mg/dL [employer] Phone: Chloride [Moles/Vol] 105 mmol/L 98 - 10 7 mmol/L [employer] Phone: CO2 [Moles/Vol] 27 mmol/L 20 - 31 mmol/L [employer] Phone: Creatinine [Mass/Vol] 0.84 mg/dL 0.70 - 1.20 mg/dL [employer] Phone: Free PSA/Total PSA [Mass fraction] 6.6 g/dL 6.4 - 8.3 g/dL [employer] Phone: GFR >60 >60 mL/min [facility] Phone: GFR Non- >60 >60 mL/min [employer] Phone: GFR/1.73 sq M.predicted MDRD (S/P/Bld) [Vol rate/Area] [employer] Phone: Comment on above: Average GFR for 60-6 9 years old: 85 mL/min/1.73sq m Chronic Kidney Disease: <60 mL/min/1.73sq m Kidney failure: <15 mL/min/1.73sq m eGFR calculated using average adult body mass. Additional eGFR calculator available at: http://www.[employer]/multiple_crcl_2012.htm GFR/1.73 sq M.predicted MDRD (S/P/Bld) [Vol rate/Area] NOT REPORTED [employer] Phone: Glucose [Mass/Vol] 86 mg/dL 70 - 99 mg/dL [employer] Phone: Interpretation and review of laboratory results Abnormal [employer] Phone: Potassium [Moles/Vol] 3.9 mmol/L 3.7 - 5.3 mmol/L [employer] Phone: Sodium [Moles/Vol] 140 mmol/L 135 - 144 mmol/L [employer] Phone: Urea nitrogen (BldV) [Mass/Vol] 14 mg/dL 8 - 23 mg/dL [employer] Phone: Urea nitrogen/Creatinine (Bld) [Mass ratio] 17 [employer] Phone: Lipid PanelOrdered By: Doug Arteaga on 02-16-2021 Cholesterol [Mass/Vol] 125 mg/dL <200 [employer] Phone: Comment on above: Cholesterol Guidelines: <200 Desirable 200-240 Borderline >240 Undesirable Cholesterol in HDL [Mass/Vol] 40 mg/dL Low >40 [employer] Phone: Comment on above: HDL Guidelines: <40 Undesirable 40-59 Borderline >59 Desirable Cholesterol in LDL [Mass/Vol] 73 mg/dL 0 - 130 mg/dL [employer] Phone: Comment on above: LDL Guidelines: <100 Desirable 100-129 Near to/above Desirable 130-159 Borderline >159 Undesirable Direct (measured) LDL and calculated LDL are not interchangeable tests. Cholesterol in VLDL [Mass/Vol] NOT REPORTED 1 - 30 mg/dL [employer] Phone: Cholesterol.total/Cho lesterol in HDL [Mass ratio] 3.1 {ratio} <5 [employer] Phone: Interpretation and review of laboratory results Abnormal [employer] Phone: Triglyceride [Mass/Vol] 60 mg/dL <150 [employer] Phone: Comment on above: Triglyceride Guidelines: <150 Desirable 150-199 Borderline 200-499 High >499 Very high Based on AHA Guidelines for fasting triglyceride, February 2012. [employer] Phone: No Panel InformationOrdered By: Doug Arteaga on 02-16-2021 [employer] Phone: Patient Fasting?Ordered By: Doug Arteaga on 02-16-2021 Patient Fasting? yes [employer] Phone: [employer] Phone: TSH without ReflexOrdered By : Doug Arteaga on 02-16-2021 TSH Qn 1.60 m[IU]/L [employer] Phone: CBC Auto Differentialon Basophils (Bld) [#/Vol] 0.00 10*3/uL [place] Basophils/100 WBC (Bld) 0 % 0 - 2 % [place] Differential Type YES [place] Eosinophils (Bld) [#/Vol] 0.10 10*3/uL [place] Eosinophils/100 WBC (Bld) 1 % 0 - 5 % [place] Erythrocyte distribution width (RBC) [Ratio] 14.2 % 12.1 - 15.2 % [place] Hematocrit (Bld) [Volume fraction] 42.4 % 41 - 53 % [place] Hemoglobin (Bld) [Mass/Vol] 14.4 g/dL 13.5 - 17.5 g/dL [place] Interpretation and review of laboratory results Abnormal [place] Lymphocytes (Bld) [#/Vol] 3.20 10*3/uL [place] Lymphocytes/100 WBC (Bld) 42 % 13 - 44 % [place] MCH (RBC) [Entitic mass] 34.1 pg High 26 - 34 pg [place] MCHC (RBC) [Mass/Vol] 34.0 g/dL 31 - 37 g/dL [place] MCV (RBC) [Entitic vol] 100.3 fL High 80 - 100 fL [place] Monocytes (Bld) [#/Vol] 0.60 10*3/uL [place] Monocytes/100 WBC (Bld) 8 % 5 - 9 % [place] Platelet mean volume (Bld) [Entitic vol] NOT REPORTED 6 - 12 fL [place] Platelets (Bld) [#/Vol] NOT REPORTED [place] Platelets (Bld) [#/Vol] 123 10*3/uL Low [place] RBC (Bld) [#/Vol] 4.23 10*6/uL Low 4.5 - 5.9 m/uL [place] RBC morphology finding Nom (Bld) NOT REPORTED [place] Segmented neutrophils/100 WBC (Bld) 49 % 39 - 75 % [place] Segs Absolute 3.70 [place] WBC (Bld) [#/Vol] NOT REPORTED per 100 WBC [place] WBC (Bld) [#/Vol] 7.7 10*3/uL [place] WBC Morphology NOT REPORTED [place] CTA HEAD W WO CONTRASTon 1. No acute intracranial findings. 2. Unremarkable intracranial CT angiograms [place], [place] Incoming Radiant Results From [employer] - 06/02/2020 3:26 PM EST EXAMINATION: CTA [...] intracranial findings. 2. Unremarkable intracranial CT angiograms [facility] [place] EXAMINATION: CTA HEAD W WO CONTRAST [...] areas of abnormal intra-axial or extra-axial enhancement. [place] Comprehensive Metabolic Pane herminio 06-02-2020 Albumin [Mass/Vol] 4.3 g/dL 3.5 - 5.2 g/dL [place] Albumin/Globulin [Mass ratio] NOT REPORTED [place] ALP [Catalytic activity/Vol] 74 U/L 40 - 129 U/L [place] ALT [Catalytic activity/Vol] 13 U/L 5 - 41 U/L [place] Anion gap [Moles/Vol] 5 mmol/L Low 9 - 17 mmol/L [place] AST [Catalytic activity/Vol] 18 U/L <40 [place] Bilirubin Ql (U) 0.87 mg/dL 0.3 - 1.2 mg/dL [place] Bun/Cre Ratio 17 [place] Calcium [Mass/Vol] 9.1 mg/dL 8.6 - 10. 4 mg/dL [place] Chloride [Moles/Vol] 102 mmol/L 98 - 10 7 mmol/L [place] CO2 [Moles/Vol] 30 mmol/L 20 - 31 mmol/L [place] Creatinine [Mass/Vol] 0.76 mg/dL 0.7 - 1.2 mg/dL [place] GFR >60 >60 mL/min [place] GFR Non- >60 >60 mL/min [place] GFR/1.73 sq M predicted among non-blacks MDRD (S/P/Bld) [Vol rate/Area] [place] Comment on above: Average GFR for 60-6 9 years old: 85 mL/min/1.73sq m Chronic Kidney Disease: <60 mL/min/1.73sq m Kidney failure: <15 mL/min/1.73sq m eGFR calculated using average adult body mass. Additional eGFR calculator available at: http://www.[employer]/multiple_crcl_2011.htm GFR/1.73 sq M predicted among non-blacks MDRD (S/P/Bld) [Vol rate/Area] NOT REPORTED [place] Glucose [Mass/Vol] 100 mg/dL High 70 - 99 mg/dL [place] Interpretation and review of laboratory results Abnormal [place] Potassium [Moles/Vol] 4.1 mmol/L 3.7 - 5.3 mmol/L [place] Protein [Mass/Vol] 6.7 g/dL 6.4 - 8.3 g/dL [place] Sodium [Moles/Vol] 137 mmol/L 135 - 144 mmol/L [place] Urea nitrogen [Mass/Vol] 13 mg/dL 8 - 23 mg/dL [place] Glucose, Whole Bloodon 06-02 Glucose [Mass/Vol] 83 mg/dL 65 - 99 mg/dL [place] Glucose [Mass/Vol] 65 mg/dL 65 - 99 mg/dL [place] Otheron 06-02-2020 Immature granulocytes (Bld) [#/Vol] NOT REPORTED [place] Hematologyon 01-19-2020 Basophils (Bld) [#/Vol] 0.00 10*3/uL [place] Basophils/100 WBC (Bld) 0 % 0 - 2 % [place] Eosinophils (Bld) [#/Vol] 0.10 10*3/uL [place] Eosinophils/100 WBC (Bld) 1 % 0 - 5 % [place] Hematocrit (Bld) [Volume fraction] 43.1 % 41 - 53 % [place] Hemoglobin (Bld) [Mass/Vol] 14.5 g/dL 13.5 - 17.5 g/dL [place] Lymphocytes (Bld) [#/Vol] 2.40 10*3/uL [place] Lymphocytes/100 WBC (Bld) 30 % 13 - 44 % [place] MCH (RBC) [Entitic mass] 33.2 pg 26 - 34 pg [place] MCV (RBC) [Entitic vol] 98.7 fL 80 - 100 fL [place] Monocytes (Bld) [#/Vol] 0.60 10*3/uL [place] Monocytes/100 WBC (Bld) 8 % 5 - 9 % [place] Platelets (Bld) [#/Vol] NOT REPORTED [place] Platelets (Bld) [#/Vol] 114 10*3/uL Low [place] RBC (Bld) [#/Vol] 4.37 10*6/uL Low 4.5 - 5.9 m/uL [place] RBC morphology finding Nom (Bld) NOT REPORTED [place] WBC (Bld) [#/Vol] NOT REPORTED per 100 WBC [place] WBC (Bld) [#/Vol] 8.0 10*3/uL [place] Metabolic Panelon 01-19-2020 Anion gap [Moles/Vol] 9 mmol/L 9 - 17 mmol/L [place] Calcium [Mass/Vol] 9.9 mg/dL 8.6 - 10. 4 mg/dL [place] Chloride [Moles/Vol] 103 mmol/L 98 - 10 7 mmol/L [place] CO2 [Moles/Vol] 22 mmol/L 20 - 31 mmol/L [place] Creatinine [Mass/Vol] 0.9 mg/dL 0.7 - 1.2 mg/dL [place] GFR/1.73 sq M predicted among non-blacks MDRD (S/P/Bld) [Vol rate/Area] [place] Comment on above: Average GFR for 60-6 9 years old: 85 mL/min/1.73sq m Chronic Kidney Disease: <60 mL/min/1.73sq m Kidney failure: <15 mL/min/1.73sq m eGFR calculated using average adult body mass. Additional eGFR calculator available at: http://www.[employer]/multiple_crcl_2012.htm GFR/1.73 sq M predicted among non-blacks MDRD (S/P/Bld) [Vol rate/Area] NOT REPORTED [place] Glucose [Mass/Vol] 98 mg/dL 70 - 99 mg/dL [place] Potassium [Moles/Vol] 4.3 mmol/L 3.7 - 5.3 mmol/L [place] Sodium [Moles/Vol] 134 mmol/L Low 135 - 144 mmol/L [place] Urea nitrogen [Mass/Vol] 13 mg/dL 8 - 23 mg/dL [place] Otheron 01-19-2020 EXAM: CT HEAD WO [...] SOFT TISSUES: Unremarkable. Moderate intracranial carotid atherosclerosis. [place] evidence of acute intracranial abnormality. [place] Incoming Radiant Results From [facility] - 01/19/2020 4:15 PM EDT EXAM: CT [...] No CT evidence of acute intracranial abnormality. [place] Bun/Cre Ratio 14 [place] GFR >60 >60 mL/min [place] GFR Non- >60 >60 mL/min [place] Interpretation and review of laboratory results Abnormal [place] Differential Type YES [place] Erythrocyte distribution width (RBC) [Ratio] 13.4 % 12.1 - 15.2 % [place] Immature granulocytes (Bld) [#/Vol] NOT REPORTED [place] Interpretation and review of laboratory results Abnormal [place] MCHC (RBC) [Mass/Vol] 33.7 g/dL 31 - 37 g/dL [place] Platelet mean volume (Bld) [Entitic vol] NOT REPORTED 6 - 12 fL [place] Segmented neutrophils/100 WBC (Bld) 61 % 39 - 75 % [place] Segs Absolute 4.90 [place] WBC Morphology NOT REPORTED [place] Brain Natriuretic Peptideon 01-14-2020 Natriuretic peptide B (Bld) [Mass/Vol] Pro-BNP Reference Range: [place] Comment on above: Rule Out: <300 [place]: Age <50 300-450 Age 50-75 300-900 Age >75 300-1800 Usually represents mild to moderate HF but other cardiopulmonary causes cannot be ruled out. Rule In: Age <50 >450 Age 50-75 >900 Age >75 >1800 Natriuretic peptide B (Bld) [Mass/Vol] 117 pg/mL <300 [place] Comment on above: Pro-BNP results jackelin ot be compared to BNP results. CBC Auto Differentialon 12-28 Basophils (Bld) [#/Vol] 0.00 10*3/uL [place] Basophils/100 WBC (Bld) 1 % 0 - 2 % [place] Differential Type YES [place] Eosinophils (Bld) [#/Vol] 0.00 10*3/uL [place] Eosinophils/100 WBC (Bld) 0 % 0 - 5 % [place] Erythrocyte distribution width (RBC) [Ratio] 13.8 % 12.1 - 15.2 % [place] Hematocrit (Bld) [Volume fraction] 44.5 % 41 - 53 % [place] Hemoglobin (Bld) [Mass/Vol] 15.0 g/dL 13.5 - 17.5 g/dL [place] Interpretation and review of laboratory results Abnormal [place] Lymphocytes (Bld) [#/Vol] 1.90 10*3/uL [place] Lymphocytes/100 WBC (Bld) 26 % 13 - 44 % [place] MCH (RBC) [Entitic mass] 33.3 pg 26 - 34 pg [place] MCHC (RBC) [Mass/Vol] 33.6 g/dL 31 - 37 g/dL [place] MCV (RBC) [Entitic vol] 99.0 fL 80 - 100 fL [place] Monocytes (Bld) [#/Vol] 0.40 10*3/uL [place] Monocytes/100 WBC (Bld) 6 % 5 - 9 % [place] Platelet mean volume (Bld) [Entitic vol] NOT REPORTED 6 - 12 fL [place] Platelets (Bld) [#/Vol] 135 10*3/uL Low [place] Platelets (Bld) [#/Vol] NOT REPORTED [place] RBC (Bld) [#/Vol] 4.49 10*6/uL Low 4.5 - 5.9 m/uL [place] RBC morphology finding Nom (Bld) NOT REPORTED [place] Segmented neutrophils/100 WBC (Bld) 67 % 39 - 75 % [place] Segs Absolute 4.80 [place] WBC (Bld) [#/Vol] NOT REPORTED per 100 WBC [place] WBC (Bld) [#/Vol] 7.2 10*3/uL [place] WBC Morphology NOT REPORTED [place] Comprehensive Metabolic Pane herminio 01-14-2020 Albumin [Mass/Vol] 4.2 g/dL 3.5 - 5.2 g/dL [place] Albumin/Globulin [Mass ratio] NOT REPORTED [place] ALP [Catalytic activity/Vol] 77 U/L 40 - 129 U/L [place] ALT [Catalytic activity/Vol] 13 U/L 5 - 41 U/L [place] Anion gap [Moles/Vol] 11 mmol/L 9 - 17 mmol/L [place] AST [Catalytic activity/Vol] 22 U/L <40 [place] Bilirubin Ql (U) 1.08 mg/dL 0.3 - 1.2 mg/dL [place] Bun/Cre Ratio 16 [place] Calcium [Mass/Vol] 10.1 mg/dL 8.6 - 10. 4 mg/dL [place] Chloride [Moles/Vol] 105 mmol/L 98 - 10 7 mmol/L [place] CO2 [Moles/Vol] 23 mmol/L 20 - 31 mmol/L [place] Creatinine [Mass/Vol] 0.8 mg/dL 0.7 - 1.2 mg/dL [place] GFR >60 >60 mL/min [place] GFR Non- >60 >60 mL/min [place] GFR/1.73 sq M predicted among non-blacks MDRD (S/P/Bld) [Vol rate/Area] NOT REPORTED [place] GFR/1.73 sq M predicted among non-blacks MDRD (S/P/Bld) [Vol rate/Area] [place] Comment on above: Average GFR for 60-6 9 years old: 85 mL/min/1.73sq m Chronic Kidney Disease: <60 mL/min/1.73sq m Kidney failure: <15 mL/min/1.73sq m eGFR calculated using average adult body mass. Additional eGFR calculator available at: http://www.Numede[employer]/multiple_crcl_2012.htm Glucose [Mass/Vol] 104 mg/dL High 70 - 99 mg/dL [place] Interpretation and review of laboratory results Abnormal [place] Potassium [Moles/Vol] 4.5 mmol/L 3.7 - 5.3 mmol/L [place] Protein [Mass/Vol] 7.3 g/dL 6.4 - 8.3 g/dL [place] Sodium [Moles/Vol] 139 mmol/L 135 - 144 mmol/L [place] Urea nitrogen [Mass/Vol] 13 mg/dL 8 - 23 mg/dL [place] D-Dimer, Quantitativeon 12-28 D-Dimer, Quant 0.45 [place] Comment on above: When combined with [...] 2.2 mg/dL 1.6 - 2 .6 mg/dL [place] Otheron 01-14-2020 Immature granulocytes (Bld) [#/Vol] NOT REPORTED 0 % [place] Troponinon 01-14-2020 Troponin I.cardiac [Mass/Vol] [place] Comment on above: Reference Range: <0.03 [...] diagnosis. Troponin T.cardiac [Mass/Vol] ug/L <0.03 ng/mL [place] Comment on above: Troponin T results c annot be compared to Troponin-I results. Troponin, High Sensitivity NOT REPORTED 0 - 22 ng/L [place] Troponin I.cardiac [Mass/Vol] [place] Comment on above: Reference Range: <0.03 [...] diagnosis. Troponin T.cardiac [Mass/Vol] ug/L <0.03 ng/mL [place] Comment on above: Troponin T results c annot be compared to Troponin-I results. Troponin, High Sensitivity NOT REPORTED 0 - 22 ng/L [place] XR CHEST PORTABLEon 01-14-20 20 Negative chest. [place], [facility] Incoming Radiant Results From [facility] - 01/14/2020 3:26 PM EDT EXAM: XR CHEST PORTABLE HISTORY: Reason for exam:->palpitations tachycardia, 64-year-old male. COMPARISON: Chest 11/19/2019. TECHNIQUE: AP portable chest 1420 hours. FINDINGS: Heart size normal. Lungs clear. Bony thorax and upper abdomen normal. IMPRESSION: Negative chest. [place] EXAM: XR CHEST PORTABLE HISTORY: Reason for exam:->palpitations tachycardia, 64-year-old male. COMPARISON: Chest 11/19/2019. TECHNIQUE: AP portable chest 1420 hours. FINDINGS: Heart size normal. Lungs clear. Bony thorax and upper abdomen normal. [place] Lipid Panelon 12-03-2019 Cholesterol [Mass/Vol] 111 mg/dL <200 [place] Comment on above: Cholesterol Guidelines: <200 Desirable 200-240 Borderline >240 Undesirable Cholesterol in HDL [Mass/Vol] 38 mg/dL Low >40 [place] Comment on above: HDL Guidelines: <40 Undesirable 40-59 Borderline >59 Desirable Cholesterol in LDL [Mass/Vol] 60 mg/dL 0 - 130 mg/dL [place] Comment on above: LDL Guidelines: <100 Desirable 100-129 Near to/above Desirable 130-159 Borderline >159 Undesirable Direct (measured) LDL and calculated LDL are not interchangeable tests. Cholesterol in VLDL [Mass/Vol] NOT REPORTED 1 - 30 mg/dL [place] Cholesterol.total/Cho lesterol in HDL [Mass ratio] 2.9 {ratio} <5 [place] Interpretation and review of laboratory results Abnormal [place] Triglyceride [Mass/Vol] 64 mg/dL <150 [place] Comment on above: Triglyceride Guidelines: <150 Desirable 150-199 Borderline 200-499 High >499 Very high Based on AHA Guidelines for fasting triglyceride, February 2012. Patient Fasting?on 0 Patient Fasting? YES [place] APTTon 11-19-2019 aPTT Coag (Bld) [Time] 24.7 s [place] Comment on above: PTT Therapeutic Range: 61.7-88.4 Therapeutic range corresponds to plasma heparin levels of 0.3-0.7 U/mL. Brain Natriuretic Peptideon 11-19-2019 Natriuretic peptide B (Bld) [Mass/Vol] 78 pg/mL <300 [place] Comment on above: Pro-BNP results jackelin ot be compared to BNP results. Natriuretic peptide B (Bld) [Mass/Vol] Pro-BNP Reference Range: [place] Comment on above: Rule Out: <300 [place] Zone: Age <50 300-450 Age 50-75 300-900 Age >75 300-1800 Usually represents mild to moderate HF but other cardiopulmonary causes cannot be ruled out. Rule In: Age <50 >450 Age 50-75 >900 Age >75 >1800 CBC Auto Differentialon 10-29 Basophils (Bld) [#/Vol] 0.00 10*3/uL [place] Basophils/100 WBC (Bld) 1 % 0 - 2 % [place] Differential Type YES [place], [place] Eosinophils (Bld) [#/Vol] 0.00 10*3/uL [place] Eosinophils/100 WBC (Bld) 1 % 0 - 5 % [place] Erythrocyte distribution width (RBC) [Ratio] 13.8 % 12.1 - 15.2 % [place] Hematocrit (Bld) [Volume fraction] 42.7 % 41 - 53 % [place] Hemoglobin (Bld) [Mass/Vol] 14.7 g/dL 13.5 - 17.5 g/dL [place] Interpretation and review of laboratory results Abnormal [place] Lymphocytes (Bld) [#/Vol] 2.40 10*3/uL [place] Lymphocytes/100 WBC (Bld) 33 % 13 - 44 % [place] MCH (RBC) [Entitic mass] 34.5 pg High 26 - 34 pg [place] MCHC (RBC) [Mass/Vol] 34.4 g/dL 31 - 37 g/dL [place] MCV (RBC) [Entitic vol] 100.3 fL High 80 - 100 fL [place] Monocytes (Bld) [#/Vol] 0.50 10*3/uL [place] Monocytes/100 WBC (Bld) 7 % 5 - 9 % [place] Platelet mean volume (Bld) [Entitic vol] NOT REPORTED 6 - 12 fL [place] Platelets (Bld) [#/Vol] NOT REPORTED [place] Platelets (Bld) [#/Vol] 112 10*3/uL Low [place] RBC (Bld) [#/Vol] 4.26 10*6/uL Low 4.5 - 5.9 m/uL [place] RBC morphology finding Nom (Bld) NOT REPORTED [place] Segmented neutrophils/100 WBC (Bld) 58 % 39 - 75 % [place] Segs Absolute 4.30 [place] WBC (Bld) [#/Vol] 7.3 10*3/uL [place] WBC (Bld) [#/Vol] NOT REPORTED per 100 WBC [place] WBC Morphology NOT REPORTED [place] Comprehensive Metabolic Pane l w/ Reflex to MGon 11-19-2019 Albumin [Mass/Vol] 4 g/dL 3.5 - 5.2 g/dL [place] Albumin/Globulin [Mass ratio] NOT REPORTED [place] ALP [Catalytic activity/Vol] 83 U/L 40 - 129 U/L [place] ALT [Catalytic activity/Vol] 15 U/L 5 - 41 U/L [place] Anion gap [Moles/Vol] 9 mmol/L 9 - 17 mmol/L [place] AST [Catalytic activity/Vol] 22 U/L <40 [place] Bilirubin Ql (U) 0.65 mg/dL 0.3 - 1.2 mg/dL [place] Bun/Cre Ratio 19 [place] Calcium [Mass/Vol] 9.8 mg/dL 8.6 - 10. 4 mg/dL [place] Chloride [Moles/Vol] 106 mmol/L 98 - 10 7 mmol/L [place] CO2 [Moles/Vol] 23 mmol/L 20 - 31 mmol/L [place] Creatinine [Mass/Vol] 0.81 mg/dL 0.7 - 1.2 mg/dL [place] GFR >60 >60 mL/min [place] GFR Non- >60 >60 mL/min [place] GFR/1.73 sq M predicted among non-blacks MDRD (S/P/Bld) [Vol rate/Area] NOT REPORTED [place] GFR/1.73 sq M predicted among non-blacks MDRD (S/P/Bld) [Vol rate/Area] [place] Comment on above: Average GFR for 60-6 9 years old: 85 mL/min/1.73sq m Chronic Kidney Disease: <60 mL/min/1.73sq m Kidney failure: <15 mL/min/1.73sq m eGFR calculated using average adult body mass. Additional eGFR calculator available at: http://www.[employer]/multiple_crcl_2012.htm Glucose [Mass/Vol] 102 mg/dL High 70 - 99 mg/dL [place] Interpretation and review of laboratory results Abnormal [place] Potassium [Moles/Vol] 4.4 mmol/L 3.7 - 5.3 mmol/L [place] Protein [Mass/Vol] 7.3 g/dL 6.4 - 8.3 g/dL [place] Sodium [Moles/Vol] 138 mmol/L 135 - 144 mmol/L [place] Urea nitrogen [Mass/Vol] 15 mg/dL 8 - 23 mg/dL [place] D-Dimer, Quantitativeon 10-29 D-Dimer, Quant 0.40 [place] Comment on above: Elevated levels of [...] 11-19-2019 Immature granulocytes (Bld) [#/Vol] NOT REPORTED [place] [facility] 11-19-2019 INR Coag (PPP) [Relative time] 1.0 {INR} [place] Comment on above: * THERAPY INDICATIONS * REFERENCE RANGES Pts not on anti-coagulants 1.0 - 1.5 INR Low risk pts on anti-coagulants 2.0 - 3.0 INR High risk pts on anti-coagulants 2.5 - 3.5 INR Prevention of atrial thrombo-embolism 3.0 - 4.5 INR PT Coag (PPP) [Time] 10.3 s [place] Troponinon 11-19-2019 Troponin I.cardiac [Mass/Vol] [place] Comment on above: Reference Range: <0.03 [...] diagnosis. Troponin T.cardiac [Mass/Vol] ug/L <0.03 ng/mL [place] Comment on above: Troponin T results c annot be compared to Troponin-I results. Troponin, High Sensitivity NOT REPORTED 0 - 22 ng/L [place] Troponin I.cardiac [Mass/Vol] [place] Comment on above: Reference Range: <0.03 [...] diagnosis. Troponin T.cardiac [Mass/Vol] ug/L <0.03 ng/mL [place] Comment on above: Troponin T results c annot be compared to Troponin-I results. Troponin, High Sensitivity NOT REPORTED 0 - 22 ng/L [place] XR CHEST PORTABLEon 11-19-19 20 CHEST [...] of posterolateral left sixth and seventh ribs. [place] Incoming Radiant Results From [facility] - 11/19/2019 4:21 PM EDT CHEST 3 [...] Unchanged chest with no acute pulmonary disease. [place] Unchanged chest with no acute pulmonary disease. [place] STRESS TEST REPORTon 019 Samantha Martinez MD - 05/02/2019 10:05 AM EST [facility] [address] [id number] CARDIAC STRESS TEST PATIENT NAME: NORY DSOUZA : 1955 MED REC NO: [id number] ROOM: ACCOUNT NO: [id number] ADMIT DATE: 05/01/2019 PROVIDER: Samantha Martinez DATE [...] MARTINEZ BRYAN/JESSICA_ALMAIT Doc#: Unknown CC: Doug Arteaga [place], [place] Otheron 05-01-2019 Radiology exam is complete. No Radiologist dictation. Please follow up with ordering provider. [place] Basic Metabolic Panel w/ Ref pia to MG 04-04-2019 Anion gap [Moles/Vol] 13 mmol/L 9 - 17 mmol/L [place] Bun/Cre Ratio 13 [place] Calcium [Mass/Vol] 9.5 mg/dL 8.6 - 10. 4 mg/dL [place] Chloride [Moles/Vol] 103 mmol/L 98 - 10 7 mmol/L [place] CO2 [Moles/Vol] 22 mmol/L 20 - 31 mmol/L [place] Creatinine [Mass/Vol] 0.91 mg/dL 0.7 - 1.2 mg/dL [place] GFR >60 >60 mL/min [place] GFR Non- >60 >60 mL/min [place] GFR/1.73 sq M predicted among non-blacks MDRD (S/P/Bld) [Vol rate/Area] NOT REPORTED [place] GFR/1.73 sq M predicted among non-blacks MDRD (S/P/Bld) [Vol rate/Area] [place] Comment on above: Average GFR for 60-6 9 years old: 85 mL/min/1.73sq m Chronic Kidney Disease: <60 mL/min/1.73sq m Kidney failure: <15 mL/min/1.73sq m eGFR calculated using average adult body mass. Additional eGFR calculator available at: http://www.Numedeon.com/multiple_crcl_2012.htm Glucose [Mass/Vol] 100 mg/dL High 70 - 99 mg/dL [place] Interpretation and review of laboratory results Abnormal [place] Potassium [Moles/Vol] 4.4 mmol/L 3.7 - 5.3 mmol/L [place] Sodium [Moles/Vol] 138 mmol/L 135 - 144 mmol/L [place] Urea nitrogen [Mass/Vol] 12 mg/dL 8 - 23 mg/dL [place] Brain Natriuretic Peptideon 04-04-2019 Natriuretic peptide B (Bld) [Mass/Vol] 188 pg/mL <300 [place] Comment on above: Pro-BNP results jackelin ot be compared to BNP results. Natriuretic peptide B (Bld) [Mass/Vol] Pro-BNP Reference Range: [place] Comment on above: Rule Out: <300 [place] Zone: Age <50 300-450 Age 50-75 300-900 Age >75 300-1800 Usually represents mild to moderate HF but other cardiopulmonary causes cannot be ruled out. Rule In: Age <50 >450 Age 50-75 >900 Age >75 >1800 CBC Auto Differentialon Basophils (Bld) [#/Vol] 0.00 10*3/uL [place] Basophils/100 WBC (Bld) 0 % 0 - 2 % [place] Differential Type YES [place] Eosinophils (Bld) [#/Vol] 0.00 10*3/uL [place] Eosinophils/100 WBC (Bld) 0 % 0 - 5 % [place] Erythrocyte distribution width (RBC) [Ratio] 14.1 % 12.1 - 15.2 % [place] Hematocrit (Bld) [Volume fraction] 43.4 % 41 - 53 % [place] Hemoglobin (Bld) [Mass/Vol] 14.6 g/dL 13.5 - 17.5 g/dL [place] Interpretation and review of laboratory results Abnormal [place] Lymphocytes (Bld) [#/Vol] 2.10 10*3/uL [place] Lymphocytes/100 WBC (Bld) 24 % 13 - 44 % [place] MCH (RBC) [Entitic mass] 33.9 pg 26 - 34 pg [place] MCHC (RBC) [Mass/Vol] 33.7 g/dL 31 - 37 g/dL [place] MCV (RBC) [Entitic vol] 100.5 fL High 80 - 100 fL [place] Monocytes (Bld) [#/Vol] 0.50 10*3/uL [place] Monocytes/100 WBC (Bld) 6 % 5 - 9 % [place] Platelet mean volume (Bld) [Entitic vol] NOT REPORTED 6 - 12 fL [place] Platelets (Bld) [#/Vol] 133 10*3/uL Low [place] Platelets (Bld) [#/Vol] NOT REPORTED [place] RBC (Bld) [#/Vol] 4.32 10*6/uL Low 4.5 - 5.9 m/uL [place] RBC morphology finding Nom (Bld) NOT REPORTED [place] Segmented neutrophils/100 WBC (Bld) 70 % 39 - 75 % [place] Segs Absolute 6.10 [place] WBC (Bld) [#/Vol] 8.8 10*3/uL [place] WBC (Bld) [#/Vol] NOT REPORTED per 100 WBC [place] WBC Morphology NOT REPORTED [place] Otheron 04-04-2019 Immature granulocytes (Bld) [#/Vol] NOT REPORTED 0 % [place] Troponinon 04-04-2019 Troponin I.cardiac [Mass/Vol] [place] Comment on above: Reference Range: <0.03 [...] diagnosis. Troponin T.cardiac [Mass/Vol] ug/L <0.03 ng/mL [place] Comment on above: Troponin T results c annot be compared to Troponin-I results. Troponin, High Sensitivity NOT REPORTED 0 - 22 ng/L [place] Troponin I.cardiac [Mass/Vol] [place] Comment on above: Reference Range: <0.03 [...] diagnosis. Troponin T.cardiac [Mass/Vol] ug/L <0.03 ng/mL [place] Comment on above: Troponin T results c annot be compared to Troponin-I results. Troponin, High Sensitivity NOT REPORTED 0 - 22 ng/L [place] Vital Signs Date Time Vital Sign Value Performing Clinician Facility 05-16-2024 12:23-0500 Hourly Rounding Adilenefo OFELICIANOWU [facility] 05-16-2024 12:23-0500 Promise to Return Mbanefo OFELICIANOWU [facility] 05-16-2024 11:23-0500 Hourly Rounding Mbanefo OFELICIANOWU [facility] 05-16-2024 11:23-0500 Promise to Return Mbanefo OJUANJOKWU [facility] 05-16-2024 10:53-0500 Heart rate 77 /min Mbanefo OJUKWU [facility] 05-16-2024 10:53-0500 SaO2% (BldA) [Mass fraction] 96 % Mbanefo [facility]JUANJOKW[facility] 05-16-2024 10:53-0500 Respiratory rate 20 /min Mbanefo OJUKWU [facility] 05-16-2024 10:52-0500 Body temperature 97.52 [degF] Mbanefo OJUKWU [facility] 05-16-2024 10:52-0500 Diastolic blood pressure 87 mm[Hg] Mbanefo [facility]JUKWU [facility] 05-16-2024 10:52-0500 Mean blood pressure 102 mm[Hg] Mbanefo [facility]JUKWU [facility] 05-16-2024 10:52-0500 Systolic blood pressure 134 mm[Hg] Mbanefo [facility]JUKWU [facility] 05-16-2024 10:42-0500 Hourly Rounding Mbanefo OJUKWU [facility] 05-16-2024 10:42-0500 Promise to Return Mbanefo OJUKWU [facility] 05-16-2024 07:22-0500 Heart rate 72 /min Mbanefo [facility]JUKW[facility] 05-16-2024 07:22-0500 SaO2% (BldA) [Mass fraction] 95 % Mbanefo [facility]JUKW[facility] 05-16-2024 07:22-0500 Respiratory rate 20 /min Mbanefo [facility]JUK[facility] 05-16-2024 07:21-0500 Body temperature 97.34 [degF] Mbanefo [facility]JUKWU [facility] 05-16-2024 07:20-0500 Diastolic blood pressure 90 mm[Hg] Mbanefo OJUKWU [facility] 05-16-2024 07:20-0500 Mean blood pressure 111 mm[Hg] Mbanefo [facility]JUKW[facility] 05-16-2024 07:20-0500 Systolic blood pressure 154 mm[Hg] Mbanefo [facility]JUKWU [facility] 05-16-2024 04:00-0500 Body temperature 97.7 [degF] Mbanefo [facility]JUKW[facility] 05-16-2024 04:00-0500 Diastolic blood pressure 70 mm[Hg] Mbanefo OJUKWU [facility] 05-16-2024 04:00-0500 Heart rate 91 /min Mbanefo OJUKWU [facility] 05-16-2024 04:00-0500 Respiratory rate 19 /min Mbanefo [facility]JUKW[facility] 05-16-2024 04:00-0500 SaO2% (BldA) [Mass fraction] 94 % Mbanefo [facility]JUK[facility] 05-16-2024 04:00-0500 Systolic blood pressure 135 mm[Hg] Mbanefo OJUKWU [facility] 05-15-2024 23:16-0500 Heart rate 64 /min Mbanefo [facility]JUK[facility] 05-15-2024 23:16-0500 Respiratory rate 18 /min Mbanefo [facility]JUK[facility] 05-15-2024 23:15-0500 Blood Pressure Location Mbanefo OJUKWU [facility] 05-15-2024 23:15-0500 BP/Pulse Patient Position Mbanefo OJUKW[facility] 05-15-2024 23:15-0500 Mean blood pressure 107 mm[Hg] Mbanefo [facility]JUKW[facility] 05-15-2024 23:15-0500 Body temperature 97.88 [degF] Mbanefo [facility]JUK[facility] 05-15-2024 19:00-0500 Body temperature 98.06 [degF] Mbanefo [facility]JUK[facility] 05-15-2024 16:56-0500 Mean blood pressure 88 mm[Hg] Mbanefo OJUKWU [facility] 05-15-2024 16:56-0500 Respiratory rate 16 /min Mbanefo [facility]JUK[facility] 05-15-2024 16:00-0500 Mean blood pressure 97 mm[Hg] Mbanefo OJUKWU [facility] 05-15-2024 15:12-0500 gluc 79 mg/dL Mbanefo OJUKWU [facility] 05-15-2024 15:05-0500 gluc 79 mg/dL Mbanefo OJUKW[facility] 10-17-2023 20:00-0400 Body height 170.2 cm [facility] 10-17-2023 20:00-0400 Body mass index (BMI) [Ratio] 36.65 kg/m2 [facility] [employer] 10-17-2023 20:00-0400 Body weight 106.14 kg Mwhz Schedule [facility] 04-21-2023 13:22-0500 Body temperature 98.06 [degF] Robson Cartwright [facility] 04-21-2023 13:22-0500 Diastolic blood pressure 74 mm[Hg] Robson Cartwright [facility] 04-21-2023 13:22-0500 Heart rate 68 /min Robson Cartwright [facility] 04-21-2023 13:22-0500 Respiratory rate 18 /min Robosn Cartwright [facility] 04-21-2023 13:22-0500 SaO2% (BldA) [Mass fraction] 97 % Robson Cartwright [facility] 04-21-2023 13:22-0500 Systolic blood pressure 140 mm[Hg] Robson Cartwright [facility] 11-27-2022 19:00-0400 Diastolic blood pressure 78 mm[Hg] Grant Vazquez [facility] 11-27-2022 19:00-0400 Heart rate 62 /min Grant George [facility] 11-27-2022 19:00-0400 Mean blood pressure 92 mm[Hg] Grant George [facility] 11-27-2022 19:00-0400 Respiratory rate 18 /min Grant George [facility] 11-27-2022 19:00-0400 SaO2% (BldA) [Mass fraction] 98 % Grant George [facility] 11-27-2022 19:00-0400 Systolic blood pressure 120 mm[Hg] Grant George [facility] 11-27-2022 18:30-0400 Diastolic blood pressure 76 mm[Hg] Grant George [facility] 11-27-2022 18:30-0400 Heart rate 49 /min Grant George [facility] 11-27-2022 18:30-0400 Mean blood pressure 97 mm[Hg] Grant George [facility] 11-27-2022 18:30-0400 Respiratory rate 17 /min Grant George [facility] 11-27-2022 18:30-0400 SaO2% (BldA) [Mass fraction] 96 % Grant George [facility] 11-27-2022 18:30-0400 Systolic blood pressure 140 mm[Hg] Grant George [facility] 11-27-2022 18:00-0400 Diastolic blood pressure 93 mm[Hg] Grant George [facility] 11-27-2022 18:00-0400 Heart rate 60 /min Grant George [facility] 11-27-2022 18:00-0400 Mean blood pressure 101 mm[Hg] Grant George [facility] 11-27-2022 18:00-0400 SaO2% (BldA) [Mass fraction] 97 % Grant George [facility] 11-27-2022 18:00-0400 Systolic blood pressure 116 mm[Hg] Grant George [facility] 11-27-2022 17:30-0400 Heart rate 90 /min Grant George [facility] 11-27-2022 16:21-0400 Body temperature 97.52 [degF] Grant George [facility] 11-27-2022 16:21-0400 Heart rate 71 /min Grant George [facility] 11-27-2022 16:21-0400 Respiratory rate 16 /min Grant George [facility] 05-16-2022 00:16-0500 Diastolic blood pressure 95 mm[Hg] Alec Александр [facility] 05-16-2022 00:16-0500 Heart rate 84 /min Alec Александр [facility] 05-16-2022 00:16-0500 Systolic blood pressure 134 mm[Hg] Alec Александр [facility] 05-16-2022 00:15-0500 Diastolic blood pressure 97 mm[Hg] Alec Александр [facility] 05-16-2022 00:15-0500 Heart rate 84 /min Alec Александр [facility] 05-16-2022 00:15-0500 Mean blood pressure 109 mm[Hg] Alec Александр [facility] 05-16-2022 00:15-0500 Respiratory rate 11 /min Alec Александр [facility] 05-16-2022 00:15-0500 SaO2% (BldA) [Mass fraction] 95 % Alec Александр [facility] 05-16-2022 00:15-0500 Systolic blood pressure 134 mm[Hg] Alec Александр [facility] 05-15-2022 21:42-0500 Diastolic blood pressure 99 mm[Hg] Alec Александр [facility] 05-15-2022 21:42-0500 Heart rate 80 /min Alec Александр [facility] 05-15-2022 21:42-0500 Systolic blood pressure 130 mm[Hg] Alec Александр [facility] 05-15-2022 21:37-0500 Hourly Rounding Alec Fountain [facility] 05-15-2022 21:37-0500 Promise to Return Alecjose Fountain [facility] 05-15-2022 21:36-0500 Heart rate 78 /min Alec Александр [facility] 05-15-2022 21:36-0500 Mean blood pressure 109 mm[Hg] Alec Александр [facility] 05-15-2022 21:36-0500 Respiratory rate 28 /min Alec Александр [facility] 05-15-2022 21:36-0500 SaO2% (BldA) [Mass fraction] 94 % Alec Александр [facility] 05-15-2022 20:48-0500 Heart rate 84 /min Alec Александр [facility] 05-15-2022 20:48-0500 Respiratory rate 24 /min Alec Александр [facility] 05-15-2022 20:48-0500 SaO2% (BldA) [Mass fraction] 96 % Alec Александр [facility] 05-15-2022 20:30-0500 Mean blood pressure 99 mm[Hg] Alec Александр [facility] 05-15-2022 19:47-0500 Body temperature 97.7 [degF] Alec Александр [facility] 05-15-2022 19:47-0500 Heart rate 79 /min Alec Александр [facility] 05-15-2022 19:47-0500 Respiratory rate 19 /min Alec Fountain [facility] 01-03-2022 01:23-0400 Nursing Progress Note Reason Other: discharge instructions given. pt verbalized understanding. sister picking pt up Miguelinan Shira [facility] 01-02-2022 22:55-0400 Body temperature 98.78 [degF] Kaitylinn Dokken [facility] 01-02-2022 22:55-0400 Diastolic blood pressure 76 mm[Hg] Kaitylinn Dokken [facility] 01-02-2022 22:55-0400 Heart rate 79 /min Miguelinan Dokken [facility] 01-02-2022 22:55-0400 Respiratory rate 18 /min Kaitylinn Dokken [facility] 01-02-2022 22:55-0400 SaO2% (BldA) [Mass fraction] 97 % Miguelinan Dokken [facility] 01-02-2022 22:55-0400 Systolic blood pressure 128 mm[Hg] Miguelinan Dokken [facility] 09-01-2021 13:20-0400 Diastolic blood pressure 83 mm[Hg] Juan A SCHAEFER [facility] 09-01-2021 13:20-0400 Heart rate 73 /min Juan A SCHAEFER [facility] 09-01-2021 13:20-0400 Systolic blood pressure 132 mm[Hg] Juan A SCHAEFER [facility] 09-01-2021 12:00-0400 Blood Pressure Location Juan A SILVANO [facility] 09-01-2021 12:00-0400 Body temperature 97.7 [degF] Juan A WALLSSLIN [facility] 09-01-2021 12:00-0400 Hourly Rounding Juan A WALLSSLIN [facility] 09-01-2021 12:00-0400 Mean blood pressure 99 mm[Hg] Juan Aalex WALLSSLIN [facility] 09-01-2021 12:00-0400 SaO2% (BldA) [Mass fraction] 97 % Juan A WALLSSLIN [facility] 09-01-2021 11:00-0400 Promise to Return Juan Aalex TOLIN [facility] 09-01-2021 08:44-0400 Diastolic blood pressure 85 mm[Hg] Juan Aalex WALLSSLIN [facility] 09-01-2021 08:44-0400 Heart rate 61 /min Juan A WALLSSLIN [facility] 09-01-2021 08:44-0400 Systolic blood pressure 147 mm[Hg] Juan Aalex WALLSSLIN [facility] 09-01-2021 08:00-0400 Blood Pressure Location Juan Aalex WALLSSLIN [facility] 09-01-2021 08:00-0400 Mean blood pressure 106 mm[Hg] Juan Aalex WALLSSLIN [facility] 09-01-2021 08:00-0400 SaO2% (BldA) [Mass fraction] 99 % Juan A WALLSSLIN [facility] 08-31-2021 15:40-0400 Body temperature 97.52 [degF] Juan A AWLLSSLIN [facility] 08-31-2021 15:40-0400 Heart rate 71 /min Juan Aaelx WALLSSLIN [facility] 08-31-2021 15:40-0400 Mean blood pressure 96 mm[Hg] Juan Aalex WALLSSLIN [facility] 08-31-2021 15:40-0400 SaO2% (BldA) [Mass fraction] 99 % Juan Aalex WALLSSLIN [facility] 08-31-2021 14:00-0400 Heart rate 68 /min Juan Aalex WALLSSLIN [facility] 08-31-2021 12:38-0400 Heart rate 78 /min Juan Aalex WALLSSLIN [facility] 08-31-2021 12:38-0400 Mean blood pressure 103 mm[Hg] Juan Aalex WALLSSLIN [facility] 08-31-2021 12:38-0400 Respiratory rate 16 /min Juan Aalex WALLSSLIN [facility] 08-31-2021 07:44-0400 Respiratory rate 18 /min Juan Aalex WALLSSLIN [facility] 08-31-2021 03:05-0400 Respiratory rate 16 /min Juan Aalex WALLSSLIN [facility] 08-30-2021 16:25-0400 Blood Pressure Location Juan Aalex WALLSSLIN [facility] 08-30-2021 16:25-0400 BP/Pulse Patient Position Juan Aalex WALLSSLIN [facility] 08-30-2021 16:25-0400 Mean blood pressure 83 mm[Hg] Juan Aalex WALLSSLIN [facility] 08-30-2021 11:44-0400 BP/Pulse Patient Position Juan A SCHAEFER [facility] 08-30-2021 11:44-0400 Mean blood pressure 88 mm[Hg] Juan A SCHAEFER [facility] 08-30-2021 08:59-0400 BP/Pulse Patient Position Juan A SCHAEFER [facility] 08-30-2021 04:15-0400 Heart rate 86 /min Juan A SCHAEFER [facility] 08-30-2021 02:30-0400 Nursing Progress Note Reason Other: Resting on cart, resp even and non labored, skin pink warm and dry, Updated on POC, call light in reach. Juan A SCHAEFER [facility] 08-30-2021 02:30-0400 Respiratory rate 11 /min Juan A SCHAEFER [facility] 08-30-2021 01:27-0400 Heart rate 82 /min Juan A SCHAEFER [facility] 06-02-2020 15:20-0500 BP Diastolic 68 mm[Hg] [facility] 06-02-2020 15:20-0500 BP Systolic 120 mm[Hg] [facility] 06-02-2020 15:20-0500 Pulse (Heart Rate) 55 /min [facility] 06-02-2020 15:20-0500 Pulse Oximetry 100 % [facility] 06-02-2020 15:20-0500 Respiratory Rate 18 /min [facility] 06-02-2020 13:10-0500 BMI (Body Mass Index) 32.93 kg/m2 [facility] 06-02-2020 13:10-0500 Body Temperature 97.59 [degF] [facility] 06-02-2020 13:10-0500 Body weight 92.53 kg [facility] 01-19-2020 16:30-0400 Pulse (Heart Rate) 66 /min Hardeep Merino [facility], [place] 01-19-2020 16:30-0400 Pulse Oximetry 97 % [facility] 01-19-2020 16:30-0400 Respiratory Rate 15 /min Hardeep Merino [facility] 01-19-2020 15:23-0400 BMI (Body Mass Index) 30.47 kg/m2 [facility] 01-19-2020 15:23-0400 Body Temperature 98.29 [degF] [facility] 01-19-2020 15:23-0400 Body weight 85.64 kg Hardeep Merino [facility] 01-19-2020 15:23-0400 BP Diastolic 83 mm[Hg] Hardeep Merino [facility] 01-19-2020 15:23-0400 BP Systolic 143 mm[Hg] Hardeep Merino [facility] 01-14-2020 16:51-0400 BP Diastolic 78 mm[Hg] [facility] 01-14-2020 16:51-0400 BP Systolic 118 mm[Hg] [facility] 01-14-2020 16:51-0400 Pulse (Heart Rate) 65 /min [facility] 01-14-2020 16:51-0400 Pulse Oximetry 99 % [facility] 01-14-2020 16:51-0400 Respiratory Rate 14 /min [facility] 01-14-2020 13:48-0400 BMI (Body Mass Index) 30.47 kg/m2 [facility] 01-14-2020 13:48-0400 Body Temperature 98.1 [degF] [facility] 01-14-2020 13:48-0400 Body weight 85.64 kg [facility] 01-14-2020 13:48-0400 Height 167.6 cm [facility] 11-19-2019 17:35-0400 BP Diastolic 77 mm[Hg] [facility] 11-19-2019 17:35-0400 BP Systolic 111 mm[Hg] [facility] 11-19-2019 17:35-0400 Pulse (Heart Rate) 67 /min [facility] 11-19-2019 17:35-0400 Pulse Oximetry 98 % [facility] 11-19-2019 17:35-0400 Respiratory Rate 17 /min [facility] 11-19-2019 15:40-0400 BMI (Body Mass Index) 31.34 kg/m2 [facility] 11-19-2019 15:40-0400 Body Temperature 98.4 [degF] [facility] 11-19-2019 15:40-0400 Body weight 90.77 kg [facility] 11-19-2019 15:40-0400 Height 170.2 cm [facility] 04-04-2019 17:18-0500 BP Diastolic 69 mm[Hg] [facility] 04-04-2019 17:18-0500 BP Systolic 110 mm[Hg] [facility] 04-04-2019 17:18-0500 Pulse (Heart Rate) 65 /min [facility], [place] 04-04-2019 17:18-0500 Pulse Oximetry 99 % [facility] 04-04-2019 17:18-0500 Respiratory Rate 17 /min [facility] 04-04-2019 16:14-0500 BMI (Body Mass Index) 33.89 kg/m2 [facility], [place] 04-04-2019 16:14-0500 Body weight 95.25 kg Siomara Mejia [facility], [place] 04-04-2019 16:14-0500 Height 167.6 cm Siomara Mejia [facility] 04-04-2019 [id number] Body Temperature 97.9 [degF] Siomara Mejia [facility] [place] Encounters Encounter Date Encounter Type Care Provider Facility Start: 05-15-2024 End: 05-16-2024 ambulatory Zunilda EIDWU Facility:[facility] Start: 05-15-2024 Emergency department patient visit Robson Cartwright Facility:[facility] Start: 05-15-2024 End: 05-16-2024 Observation Zunilda CHACON [facility] Start: 03-23-2024 End: 03-25-2024 ambulatory [facility] Start: 03-23-2024 End: 03-25-2024 Subsequent hospital visit by physician Doug Arteaga MD [facility] Comment on above: Leg edema, left Start: 11-16-2023 End: 11-16-2023 ambulatory [facility] Start: 11-02-2023 End: 11-04-2023 ambulatory DOUG [facility] Start: 11-02-2023 End: 11-04-2023 Subsequent hospital visit by physician Doug Arteaga MD Work Phone: [facility] Comment on above: Personal history of tobacco use Screening for AAA (a bdominal aortic aneurysm) Start: 10-17-2023 End: 10-17-2023 ambulatory DOUG [facility] Start: 10-17-2023 End: 10-17-2023 Subsequent hospital visit by physician [facility] Comment on above: Excessive daytime sl eepiness; Other sleep apnea Start: 09-30-2023 End: 09-30-2023 ambulatory SIOMARA BAEZA Not Available Start: 06-28-2023 End: 06-30-2023 ambulatory [facility]G [facility] Start: 05-12-2023 End: 05-14-2023 ambulatory [facility] Start: 04-28-2023 End: 04-28-2023 Patient encounter procedure [place] Rasheeda [facility] Start: 04-21-2023 End: 04-21-2023 Emergency department patient visit Robson Cartwright [facility] Start: 11-27-2022 End: 11-27-2022 Emergency department patient visit Grant Vazquez [facility] Start: 10-11-2022 End: 10-12-[address] DOCTOR BAI Facility:[facility] Start: 06-26-2022 End: 06-26-[address] VIDYA SAMUEL . Facility:[facility] Start: 05-15-2022 End: 05-16-2022 Emergency department patient visit Alec Fountain [facility] Start: 02-11-2022 End: 02-11-[address] VIDYA SAMUEL . Facility:[facility] Start: 01-02-2022 End: 01-03-2022 Emergency department patient visit Jose Daniel Silva [facility] Start: 08-30-2021 End: 09-01-2021 Observation Juan A SCHAEFER [facility] Start: 03-05-2021 End: 03-05-2021 Subsequent hospital visit by physician Doug Arteaga MD Work Phone: [facility] Comment on above: Screening PSA (prost ate specific antigen) Start: 02-16-2021 End: 02-16-2021 Subsequent hospital visit by physician Doug Arteaga MD Work Phone: [facility] Comment on above: Hypercholesteremia; Essential hypertension Start: 06-02-2020 End: 06-02-2020 Emergency department patient visit Pan Barragan Work Phone: [facility] Comment on above: Diplopia (Primary [...] department patient visit Hardeep Merino Work Phone: [facility] Comment on above: Arm paresthesia, rig ht (Primary Dx) Start: 01-14-2020 End: 01-14-2020 Emergency department patient visit Pan Barragan Work Phone: [facility] Comment on above: Palpitations (Primar y Dx) Start: 12-03-2019 End: 12-03-2019 Subsequent hospital visit by physician Dashawn Ekg [facility] Comment on above: Palpitations Hypercholesteremia; Essential hypertension Start: 11-19-2019 End: 11-19-2019 Emergency department patient visit Devin Lui Work Phone: [facility] Comment on above: Tachycardia (Primary [...] End: 05-03-2019 Subsequent hospital visit by physician [facility] Comment on above: Arrived Start: 04-04-2019 End: 04-04-2019 Subsequent hospital visit by physician Doug Arteaga [facility] Start: 04-04-2019 End: 04-04-2019 Emergency department patient visit Siomara Mejia Work Phone: [facility] Comment on above: Palpitations (Primar y Dx) Start: 05-12-2017 Refill Kati L. Matilde cesar SCREW SUPERVISOR Work Phone: [facility] Comment on above: Medication Refill Start: 04-17-2017 Refill Kati L. Matilde cesar SCREW SUPERVISOR Work Phone: [facility] Comment on [...] Comment on above: Performed By: #### P [facility] #### [facility] [address] [place] [address] Dr. Rufina Ramirez Start: 03-05-2021 PSA screening [...] Visi t (Medicare) Annual Wellness [facility] (Medicare) [facility] Start: 11-15-2024 Depression Screen [facility] Screen [facility] Start: 11-01-2024 Screening for malign ant neoplasm of lung [facility] Start: 06-25-2024 Depression Screen Depression Screen [facility] Start: 02-12-2024 DTaP/Tdap/Td vaccine (2 - Td or Tdap) DTaP/Tdap/Td vaccine (2 - Td or Tdap) [facility] [employer] Security Master [facility] Start: 02-12-2024 DTaP/Tdap/Td vaccine (2 - Td) DTaP/Tdap/Td vaccine (2 - Td) [facility] [place] Start: 02-12-2024 Tetanus vaccination Tetanus: Every [address] [facility] Start: 01-29-2024 COVID-19 Vaccine ( season) COVID-19 Vaccine ( season) [facility] Start: 12-29-2023 Influenza vaccination Flu vaccine (# 1) [facility] Start: 11-16-2023 End: 11-16-2023 Patient encounter procedure 11/16/2023 10:20 AM EDT Office Visit [address] [address] Doug Arteaga MD [address] [place] [id number] HCC - 6 months (around 11/01/2023) for HTN, Hyperlipidemia, gerd. [facility] Comment on above: HCC - 6 months (arou nd 11/01/2023) for HTN, Hyperlipidemia, gerd. Start: 11-01-2023 End: 11-01-2023 Patient encounter procedure 11/01/2023 10:20 AM EDT Office Visit [address] [address] Doug Arteaga MD [address] [place] [id number] HCC - 6 months (around 11/01/2023) for HTN, Hyperlipidemia, gerd. [facility] Comment on above: HCC - 6 months (arou nd 11/01/2023) for HTN, Hyperlipidemia, gerd. Start: 10-29-2023 Annual Wellness Visi t (Medicare) Annual Wellness Visit (Medicare) [facility] Start: 10-29-2023 Screening for malign ant neoplasm of colon [facility] Start: 10-12-2023 Lipid panel Lipids [facility] Start: 01-28-2023 COVID-19 Vaccine ( season) COVID-19 Vaccine () [facility] Start: 02-16-2022 Lipid panel Lipid screen [facility] Work Phone: Start: 01-28-2022 Influenza vaccination Sequenti al Influenza Vaccine (#1) [facility] Start: 09-04-2021 Annual Wellness Visi t (AWV) Annual Wellness Visit (AWV) [facility] [employer] Phone: Start: 09-03-2021 End: 09-03-2021 Patient encounter procedure 09/03/2021 Office Visit Family Doug Marie MD [address] [place] [address] [facility] Start: 03-05-2021 End: 03-05-2021 Patient encounter procedure 03/05/2021 Office Visit Doug Inman MD [address] [place] [address] [facility] Start: 01-28-2021 Influenza vaccination Flu vaccine (# 1) [facility] [employer] Phone: Start: 12-02-2020 Lipid panel Lipid screen [facility] [place] Start: 08-25-2020 End: 08-25-2020 Office Visit [facility] Start: 04-28-2020 End: 04-28-2020 Office Visit 04/28/2020 Office Visit Cardiology Demetrius Jimenez MD [address] [place] [address] [facility] [employer] Start: 04-19-2020 Lipid panel Lipid screen [place] Start: 04-19-2020 Lipid screen Lipid screen [facility] [employer] Phone: Start: 04-16-2020 End: 04-16-2020 Office Visit 04/16/2020 Office Visit Doug Inman MD [address] [place] [address] [facility] Start: 01-29-2020 Influenza vaccination Flu vaccine (# 1) [place], [place] Start: 01-28-2020 End: 01-28-2020 Office Visit 01/28/2020 Office Visit Cardiology Demetrius Jimenez MD [address] [place], [place] [id number] [facility] [employer] Start: 12-25-2019 End: 12-25-2019 Office Visit 12/25/2019 Office Visit Cardiology Demetrius Jimenez MD [address] [place] [address] [facility] [employer] Start: 06-08-2019 Pneumococcal 65+ yea rs Vaccine (2 of 2 - PPSV23) Pneumococcal 65+ years Vaccine (2 of 2 - PPSV23) [place], [place] Start: 06-05-2019 End: 06-05-2019 Office Visit 06/05/2019 Office Visit Family Medicine Doug Arteaga MD [address] [place] [address] [facility] Start: 2019 Lipid screen Lipid screen [place], [place] Start: 01-28-2019 Influenza vaccination Flu vaccine (# 1) [place] Start: 10-25-2018 Annual Wellness Visi t (AWV) Annual Wellness Visit (AWV) [place] Start: 2018 Abdominal aortic ane urysm screening AAA screen [facility] Start: 2018 Fall risk assessment Falls Risk Asse ssment [facility] Start: 04-09-2017 Colon Cancer Screen FIT/FOBT Colon Cancer Screen FIT/FOBT [place] Start: 04-09-2017 Screening for malign ant neoplasm of colon Colon Cancer Screen FIT/FOBT [place] Start: 2013 Respiratory Syncytia l Virus (RSV) or age 60 yrs+ (1 - 1-dose 60+ series) Respiratory Syncytial Virus (RSV) or age 60 yrs+ (1 - 1-dose 60+ series) [facility] Start: 04-22-2009 Pneumococcal Vaccine : Age 65+ (2 - PCV) Pneumococcal Vaccine: Age 65+ (2 - PCV) [facility] Start: [address] lung screening Low dose CT lung screening [place], [place] Start: 2008 Screening for malign ant neoplasm of lung Low dose CT lung screening [place], [place] Start: 2003 Administration of he rpes zoster vaccine Zoster Vaccines (1 of 2) [facility] Start: 2003 Screening for malign ant neoplasm of lung [facility] Start: 2003 Shingles Vaccine (1 of 2) Tabor gles Vaccine (1 of 2) [facility] Start: 1998 Screening for malign ant neoplasm of colon [facility] [employer] Start: 1993 Diabetes screen Diabetes screen [facility] [employer] Phone: Start: 1971 [facility] Start: 1965 Depression screening using PHQ-9 (Patient Health Questionnaire 9) score Depression Screening (PHQ-2/9) [facility] Start: 1956 History and physical examination, annual for health maintenance Wellness Visit [facility] Start: 1953 COVID-19 Vaccine (#1) COVID-19 Vacci ne (#1) [facility] Start: 1953 Hepatitis C screen Hepatitis C scree n [place], [place] Start: 1953 Hepatitis C screening Hepatitis C sc allison [place], [place] Start: 1953 Prostate specific an tigen measurement PSA Level [facility] Start: 1953 Screening for malign ant neoplasm of colon [facility] End: 05-02-2019 Bacteria identified Cx Nom (U) Urine Culture Microbiology Routine Burning with urination 1 Occurrences starting 05/02/2019 until 05/02/2019 [place] Comment on above: 1 Occurrences starti ng 05/02/2019 until 05/02/2019 Bacteria identified Cx Nom (U) Urine Culture Microbiology Routine Burning with urination 05/02/2019 3:00 PM [place], [place] End: 10-17-2023 Baseline Diagnostic Sleep Study Baseline Diagnostic Sleep Study Sleep Center Routine Excessive daytime sleepiness Other sleep apnea 1 Occurrences starting 10/17/2023 until 10/17/2023 [facility] Comment on above: 1 Occurrences starti ng 10/17/2023 until 10/17/2023 End: 12-03-2019 Cardiac event monitor Cardiac event monitor Cardiac Services Routine Palpitations 1 Occurrences starting 12/03/2019 until 12/03/2019 [place] Comment on above: 1 Occurrences starti ng 12/03/2019 until 12/03/2019 End: 06-07-2019 Cardiac event monitor Cardiac event monitor Cardiac Services Routine Palpitations 1 Occurrences starting 06/07/2019 until 06/07/2019 [facility] Phone: Comment on above: 1 Occurrences starti ng 06/07/2019 until 06/07/2019 End: 03-06-2020 Dermatology Pathology Dermatology Pathology Lab Routine Once for 1 Occurrences starting 03/06/2020 until 03/06/2020 [place] Comment on above: Once for 1 Occurrenc es starting 03/06/2020 until 03/06/2020 EKG 12 Lead [facility] [place] End: 04-04-2019 Holter monitor 48 hour Holter monitor 48 hour Cardiac Services Routine One Time for 1 Occurrences starting 04/04/2019 until 04/04/2019 [place] Comment on above: One Time for 1 Occur rences starting 04/04/2019 until 04/04/2019 End: 04-04-2020 Holter Monitor 48 Hour Holter Monitor 48 Hour Cardiac Services Routine Palpitations 1 Occurrences starting 04/04/2019 until 04/04/2020 [place] Comment on above: 1 Occurrences starti ng 04/04/2019 until 04/04/2020 Initiate Oxygen Ther apy Protocol Initiate Oxygen Therapy Protocol Respiratory Care Routine Daily until discontinued starting 11/19/2019, 2 completed [place] Comment on above: Daily until disconti nued starting 11/19/2019, 2 completed End: 07-30-2019 PSA, free PSA, free Lab Routine Once for 1 Occurrences starting 07/30/2019 until 07/30/2019 [place] Comment on above: Once for 1 Occurrenc es starting 07/30/2019 until 07/30/2019 PSA, free PSA, free Lab Ro utine 07/30/2019 1:01 PM EST [place] End: 04-09-2020 Surgical Pathology Surgical Pathology Lab Routine Skin lesion of left arm Squamous cell cancer of skin of forearm, left 1 Occurrences starting 04/09/2020 until 04/09/2020 [place] Comment on above: 1 Occurrences starti ng 04/09/2020 until 04/09/2020 End: 11-19-2019 THYROID PROF W/ TSH THYROID PROF W/ TSH Lab Routine One Time for 1 Occurrences starting 11/19/2019 until 11/19/2019 [place] Comment on above: One Time for 1 Occur rences starting 11/19/2019 until 11/19/2019 End: 11-19-2019 Urinalysis, reflex to microscopic Urinalysis, reflex to microscopic Lab STAT One Time for 1 Occurrences starting 11/19/2019 until 11/19/2019 [place] Comment on above: One Time for 1 Occur rences starting 11/19/2019 until 11/19/2019 End: 04-04-2019 XR CHEST PORTABLE XR CHEST PORTABLE Imaging STAT Once for 1 Occurrences starting 04/04/2019 until 04/04/2019 [place] Comment on above: Once for 1 Occurrenc es starting 04/04/2019 until 04/04/2019 XR CHEST PORTABLE XR CHEST ALFREDO BLE Imaging STAT 04/04/2019 4:38 PM EST [place] Immunizations Immunization Date Immunization Notes Care Provider Caio sánchez 05-02-2023 Influenza, FLUAD, (a ge 65 y+), Adjuvanted, 0.5mL [facility] Schedule [facility] 04-27-2022 Influenza, FLUAD, (a ge 65 y+), Adjuvanted, 0.5mL [facility] Schedule [facility] 04-15-2021 COVID-19, PFIZER PUR PLE top, DILUTE for use, (age 12 y+), 30mcg/0.3mL [facility] Schedule [facility] 08-19-2020 COVID-19, Pfizer, PF , 30mcg/0.3mL Doug Arteaga MD Work Phone: [facility] 07-29-2020 COVID-19, Pfizer, PF , 30mcg/0.3mL Doug Arteaga MD Work Phone: [facility] 04-09-2020 influenza, injectabl e, quadrivalent, preservative free [facility] [place] 02-25-2020 pneumococcal polysaccharide vaccine, 23 valent Doug [place] 04-29-2019 influenza virus vacc ine, live, attenuated, for intranasal use Juan A WALLSSLIN [facility] 04-29-2019 influenza virus vacc ine, unspecified formulation Doug Arteaga MD Work Phone: [facility] 04-16-2019 influenza, injectabl e, quadrivalent, preservative free [facility] 06-08-2018 pneumococcal conjuga te vaccine, 13 valent Siomara Roberto [facility] 04-05-2018 influenza, injectabl e, quadrivalent, preservative free [facility] Schedule [facility] 04-09-2017 Influenza Vaccine, unspecified [facility] [place] [place] 04-09-2017 influenza, injectabl e, quadrivalent, preservative free [facility] Schedule [facility] 03-19-2016 influenza, injectabl e, quadrivalent, preservative free [facility], [place] 03-19-2014 influenza virus vacc ine, unspecified formulation Siomara Mejia [facility] 02-11-2014 tetanus toxoid, redu brenda diphtheria toxoid, and acellular pertussis vaccine, adsorbed Siomara Roberto [facility] 04-22-2008 pneumococcal polysaccharide vaccine, 23 valent Siomara Mejia [place] Payers Date Payer Category Payer Medicare MEDICARE MEDICAR E PART A AND B xxxxxxxxxxx 2017-Present [phone] [address] [address] [place] [address] xxxxxxxxxxx [id number] 2017 Unknown [employer] [facility] NN xxxxxxxxxxxx 2017-Present [phone] [address] [place] [address] xxxxxxxxxxxx [id number] [employer] [employer] [id number] 2015-Present [phone] [address] [place] [address] [id number] 1959 Medicare [id number] 1959 Unknown [id number] .[id number] 1953 Unknown [id number] 2.16.840.1.287900.3.579.2.593 1953 Unknown [id number] 2.16.840.1.082934.3.579.2.593 1953 Unknown [id number] 2.16.840.1.657166.3.579.2.593 1953 Unknown [id number] 2.16.840.1.359155.3.579.2.125 9 1953 Unknown [id number] 2.16.840.1.958085.3.579.2.125 9 1953 Unknown [id number] 2.16.840.1.828211.3.579.2.174 1953 Unknown [id number] 2.16.840.1.123810.3.579.2.174 1953 Unknown [id number] 2.16.840.1.522789.3.579.2.174 1953 Unknown [id number] 2.16.840.1.311296.3.579.2.174 1953 Unknown [id number] 2.16.840.1.886178.3.579.2.174 1953 Unknown [id number] 2.16.840.1.522518.3.579.2.174 1953 Unknown [id number] 2.16.840.1.302369.3.579.2.174 1953 Unknown [id number] 2.16.840.1.769090.3.579.2.174 1953 Unknown [id number] 2.16.840.1.640296.3.579.2.174 1953 Unknown [id number] 2.16.840.1.783948.3.579.2.174 1953 Unknown [id number] 2.16.840.1.765908.3.579.2.727 1953 Unknown [id number] 2.16.840.1.180606.3.579.2.727 1953 Unknown [id number] 2.16.840.1.903463.3.579.2.727 1953 Unknown [id number] 2.16.840.1.047645.3.579.2.727 1953 Unknown [id number] 2.16.840.1.418116.3.579.2.727 1953 Unknown [id number] 2.16.840.1.910531.3.579.2.727 1953 Unknown [id number] 2.16.840.1.448594.3.579.2.727 Social History Date Type Detail Facility Start: 04-04-2019 End: 11-16-2023 Tobacco smoking status NCIS Current every day smoker [facility] History of tobacco use Cigarette Smoker [place] Start: 04-04-2019 End: 12-14-2022 Cigarettes smoked current (pack per day) - Reported SONYA [facility] Start: 04-04-2019 End: 12-14-2022 Alcohol intake No [place], [place] Start: 1955 Sex Assigned At Not on file [place] Start: 04-16-2019 End: 03-21-2024 Alcohol intake Current non-drinker of alcohol (finding) [place], [place] Exposure to SARS-CoV -2 (event) Unable to assess [place] Start: 01-14-2020 End: 11-16-2023 Tobacco use and exposure Never used [place] Exposure to SARS-CoV -2 (event) Not sure [place] Start: 02-25-2020 End: 03-05-2021 History SDOH Financial 5 [place] Start: 02-25-2020 End: 03-05-2021 History SDOH Food Worry 1 [place] Start: 05-08-2019 Tobacco smoking status Light t obacco smoker (finding) [facility] How often to you hav e a drink containing alcohol? Never [employer] How many standard drinks containing alcohol do you have on a typical day? Patient does not drink [employer] (I/We) worried [facility] (my/our) food would run out before (I/we) got money to buy more. Never true [employer] At any time in the p ast 12 months, were you homeless or living in [facility] [including now]? No [facility] History of tobacco use Passive smoker [employer] How hard is it for y ou to pay for the very basics like food, housing, medical care, and heating Not very hard [employer] Functional Status Date Assessment Result Facility 05-15-2024 Functional Status N/A [facility] 05-15-2024 Functional Status [facility] 04-21-2023 Functional Status N/A [facility] 11-27-2022 Functional Status N/A [facility] 05-15-2022 Functional Status N/A [facility] 01-02-2022 Functional Status N/A [facility] Clinical Notes 04-18-2017 to 05-16-2024 Note Date & Type Note Facility 05-16-2024 Note Echocardiology Procedure Exam Date/Time Accession # Ordering Dr. Echo w/ Saline Bubbles 05/16/2024 10:10 [facility] [[email or web address] [id number] Vilma Gaines CPT code [id number] Reason for Exam (Echo w/ Saline Bubbles) CVA Report [facility] [address] [place] [address] Adult Echocardiogram Report Name: NORY DSOUZA Study Date: 05/16/2024 09:04 AM BP: 135/70 mmHg Patient Location: [address] [place] [address] Bed(s) [facility] : 1955 Gender: Male Height: 65.5 in Age: 69 yrs Ethnicity: [facility] Weight: 238 lb Reason For Study: CVA [...] Sanders MD Transcribed by: JOSE Technologist: XIOMARA [facility] 05-16-2024 Hospital Discharg e instructions [...] Follow these instructions at home: Medicines Take zmyn-goc-abdwahw and prescription medicines only as told by [...] were prescribed. Where to find more information [employer] [employer]: stroke.org Get help right away [...] provider. Document Revised: 10/29/2022 Document Reviewed: 10/29/2022 [employer] Patient Education 2023 [employer]. Follow Up Care 05/15/2024 14:53:10 With:Samantha Mccoy MD, NEU Address: [address] [place], [place] [address]- Business (1) When:06/04/2024 13:40:00 Comments:Please, arrive 15 minutes early to do in patient paper work. With:DOUG DE LEONVINNY Address: [address] [place] [address]- Business (1) When:5 to 7 days Comments:Office was closed for lunch. Patient needs to call to make hospital follow up appointment. 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 Recommend use of FWW at all times until further notice. [facility]12-17-2024 NoteHistory and Physical Chief Complaint [...] 15::00) Lymph Auto: 29.8 % (05/15/24 15:01:00) [place] Auto: 16.6 % High (05/15/24 15:01:00) Eos Auto: 0.3 % (05/15/24::00) Basophil Auto: 0.5 % (05/15/24 15:01:00) Neutro Absolute: 2.7 E9/L (05/15/24:01:00) Lymph Absolute: 1.5 E9/L (05/15/24:01:00) [place] Absolute: 0.8 E9/L (05/15/24::00) Eos Absolute: 0 [...] 79 mg/dL (05/15/24 15:04:00) POC Device SN: [id number] (05/15/24 15:04:00) POC User ID: [id number] (05/15/24 15:04:00) POC Username: [email or web address] (more content not included)...[facility] Comment on above:Result Comment: Electronically Signed By: Tim SPENCER, Vilma Duron\.br\Date and Time Signed: 05/15/2417:56 EST\.br\Electronically Co-Signed By: Zunilda CHACON MD\.br\Date and Time Co-Signed: 05/15/2419:06 [id number] History of Present illness Narrative* Lennie Nolan - 10/17/2023 8:15 PM EDT Patient arrived for sleep testing. Testing explained, all questions answered, pt voices understanding. [facility] Discharge instructions Patient Education 04/21/2023 13:48:58 [...] your health care provider. General instructions Take yipx-uhu-owashsa and prescription medicines only as told by [...] provider. Document Revised: 09/28/2019 Document Reviewed: 09/28/2019 [employer] Patient Education 2022 [employer]. 04/21/2023 13:48:58 Acute Pain, Adult Acute Pain, [...] Follow these instructions at home: Medicines Take keoo-gss-mybdakv and prescription medicines only as told by [...] pain is severe. ?Do not take other ixce-dno-udnnbkp pain medicines in addition to prescription pain [...] grains, and fresh fruits and vegetables. ?Take wufy-xmu-wejghhr or prescription medicines. ?Limit foods that are [...] or you are no longer ill. Take dmob-jpv-szkcwuf and prescription medicines only as told by [...] Document Reviewed: 10/01/2019 [employer] Patient Education 2022 [employer]. Follow Up Care 04/21/2023 13:14:23 With:DOUG ARTEAGA Address: [address] [place], [place] [address] [address]- Business (1) When:04/24/2023 13:30:48 [facility]07-01-2023 Hospital Discharge instructions Patient Education 11/27/2022 19:31:51 Urinary Tract Infection, Adult, Nqca-uz-Ehdj Urinary Tract Infection, Adult A urinary tract [...] Follow these instructions at home: Medicines Take unpm-fsy-goxrynl and prescription medicines only as told by [...] provider. Document Revised: 12/26/2020 Document Reviewed: 12/26/2020 [employer] Patient Education 2022 [employer]. 11/27/2022 18:22:38 Supraventricular Tachycardia, Adult, Uxhb-xw-Wwxv Supraventricular Tachycardia, Adult Supraventricular tachycardia (SVT) is [...] heartbeat as told by your doctor. Take mkor-pvi-pdvvbus and prescription medicines only as told by [...] provider. Document Revised: 12/27/2020 Document Reviewed: 12/27/2020 [employer] Patient Education 2022 [employer]. You are currently taking four 25 mg doses of metoprolol daily. Starting Tuesday begin taking 2 tablets at dose #1 in the morning and 2 tablets at dose #3 in the late afternoon early evening. The otherdoses stay the same. Contact your nursing home manager Tuesday. Take copies of your monitor strip and your EKG with you. New symptoms, dizziness, shortness of breath, chest pain, or sustained rapid heartbeat should bring you back here. Follow Up Care 11/27/2022 16:18:04 With:Contact your nursing home manager Tuesday. Address:Unknown When: Unknown With:DOUG ARTEAGA Address: [address] [place] [address]. [place] [address]- Business (1) When:Within 3 Day(s) [facility]07-01-2023 Evaluation + Plan noteExtracted from: Title:ED Note Author:Grant Vazquez MD Date: 3 1. SVT (supraventricular tac hycardia) (I47.1: Supraventricular tachycardia) Acute UTI (urinary tract infection) (N39.0: Urinary tract infection, site not specified) Orders: cephalexin, 500 mg = 1 cap(s), Oral, BID, X 7 day(s), # 14 cap(s), Refills(s) 0, Pharmacy: [facility] #[id number], 170, cm, 11/27/22 16:29:00 EDT, Height/Length Dosing, 92.4, kg, 11/27/22 16:29:00 EDT, Weight Dosing cephalexin, 500 mg = 1 cap(s), Cap, Oral, Once, Stop date 11/27/22 18:58:00 EDT, STAT, Start date 11/27/22 18:58:00 EDT, 11/27/22 18:58:00 EDT metoprolol, See Instructions, 2 tabs in the morning and evening and 1 tab in the afternoon, # 20 tab(s), Refills(s) 0, Pharmacy: [facility] #[id number], 170, cm, 11/27/22 16:29:00 EDT, Height/Length Dosing, 92.4, kg, 11/27/22 16:29:00 EDT, Weight Dosing Diagnostic Tests Pending * Urine Culture 11/27/22 [facility]12-18-2022 Hospital Discharge instructions Patient Education 05/15/2022 23:39:24 Palpitations, Cbnr-ag-Soea Palpitations Palpitations are feelings that your heartbeat [...] a regular bed time. General instructions Take slyl-lvv-vewekfn and prescription medicines only as told by [...] 02/22/2009 Document Revised: 06/28/2018 Document Reviewed: 06/28/2018 [employer] Patient Education 2020 [employer]. 05/15/2022 23:39:22 Nonspecific Chest Pain, Adult, Ihxh-fr-Inny Nonspecific Chest Pain Chest pain can be [...] Follow these instructions at home: Medicines Take chto-vee-pkrcwxd and prescription medicines only as told by [...] ?Eating a heart-healthy diet. A diet and nutrition faculty member (dietitian) can help you to learn healthy [...] 11/01/2008 Document Revised: 11/16/2018 Document Reviewed: 11/16/2018 [employer] Patient Education 2020 [employer]. Follow Up Care 05/15/2022 19:43:58 With:ARNOL FISCHER, EWELINA CALVO Address: [address] [place] [address]. [place] [address]- When:05/17/2022 [facility]12-17-2022 Evaluation + Plan noteExtracted from: Title:ED [...] Troponin 6 Hr. XR Chest Single View [facility]08-07-2022 Evaluation + Plan noteExtracted from: Title:ED Note Author:Jose Daniel Silva DO Date :01/03/22 Palpitations (R00.2: Palpita tions) Orders: Automated Diff Basic Metabolic Panel CBC w/ Auto Diff ECG 12 Lead Adult ED Cardiac Monitoring eGFR Hepatic Function Panel Magnesium Level Oxygen Saturation Oxygen Therapy PT & PTT Saline Lock Insert Troponin 0 Hr. XR Chest Single View [facility]08-07-2022 Hospital Discharge instructions Patient Education 01/03/2022 01:25:02 Palpitations, Bzrg-sn-Wnpu Palpitations Palpitations are feelings that your heartbeat [...] a regular bed time. General instructions Take lqfd-bre-skrsepp and prescription medicines only as told by [...] 02/22/2009 Document Revised: 06/28/2018 Document Reviewed: 06/28/2018 [employer] Patient Education 2020 [employer]. Follow Up Care 01/02/2022 22:55:07 With:DOUG ARTEAGA Address: [address] [place] [address]- Business (1) When:01/06/2022 Comments:Follow-up with your primary care doctor next 2 to 3 days for further evaluation and management. Please return the ED for any new or worsening symptoms. [facility]04-05-2022 Evaluation + Plan noteExtracted from: Title:Discharge [...] to go home and f/u w/PCP and Adult And Pediatric Neurologist. Plan was discussed with patient and family (if applicable) at bedside Orders: metoprolol, 25 mg = 1 tab(s), Oral, QID, # 120 tab(s), Refills(s) 0, Pharmacy: [id number] 170, cm, 08/30/21 1:31:00 [...] AM EDT [address] [place] [address]- Business (1) Additional Instructions: Sagar Zamarripa [facility] [address] [place] [address]- Additional Instructions: Thrombocytopenia Extracted from: Title:Consult Note [...] from: Title:Admission H & P Author:Juan A SCAHEFER DO Date:08/30/21 1. Palpitations (R00.2: Palp itations) Patient was somewhat vague with his symptoms, he did express concern that his heart rate would rise to 100 with a walk to the bathroom. He states his heart rate usually does not get above 80. He states he was evaluated for something very similar in [place] seen by Dr. Elizabeth describes having Holter monitors, and event monitor and even a stress study it is not aware of any concerning findings. She has not seen his nursing home manager in quite some period of time. We [...] Physician consult Hospitalist for continued care Troponin [facility]04-03-2022 Hospital Discharge instructions Follow Up Care 08/30/2021 01:23:32 With:Sagar Zamarripa Address: [facility] [place] [address]- When: Unknown Comments:Thrombocytopenia With:DOUG ARTEAGA Address: [address] [place] [address] [place] [address]- Business (1) When:09/07/2021 09:20:00 [facility]12-14-2017 Telephone encounter Note* Telephone Encounter - Kati Mendieta CNP - 05/12/2017 8:08 AM EST Needs appt [id number] Miscellaneous Notes* Telephone Encounter - Kati Mendieta CNP - 05/12/2017 8:08 AM EST Needs appt documented in this [id number] Telephone encounter Note* Telephone Encounter - Kati Mendieta CNP - 04/18/2017 7:30 AM EST Patient has not been seen since April 2016. Please arrange 1 month refill and office visit [id number] Miscellaneous Notes* Telephone Encounter - Kati Mendieta CNP - 04/18/2017 7:30 AM EST Patient has not been seen since April 2016. Please arrange 1 month refill and office visit documented in this encounterOhioHealthEvaluation note* Diagnosis Hypercholesteremia Pure hypercholesterolemia Essential hypertension Unspecified essential hypertension documented in this encounter [employer] Phone: evaluation note* Diagnosis Screening PSA (prostate specific antigen) Special screening for malignant neoplasm of prostate documented in this encounter [employer] Phone: evaluation note* Diagnosis Palpitations documented in this encounter [employer] Phone: evaluation note* Diagnosis Excessive daytime sleepiness Other sleep apnea documented in this encounter [facility]* Diagnosis Personal history of tobacco use Personal history of tobacco use, presenting hazards to health documented in this encounter [facility]* Diagnosis Screening for AAA (abdominal aortic aneurysm) Screening for other and unspecified cardiovascular conditions documented in this encounter [facility]* Diagnosis Leg edema, left Edema documented [facility] this [facility] Narrative No data available for this section [facility] Discharge instructions No data available for this section [facility] No data available for this section [facility] History of Present Illness * Rubi Berger [...] FoundDocuments on File Type Date Recorded Patient Costume Mistress Expl anation Advance Directives and Living Will Power of Cash Van Salesperson Documents on File Type Date Recorded Patient Costume Mistress Expl anation Advance Directives and Living Will Power of Cash Van Salesperson Documents on File Type Date Recorded Patient Costume Mistress Expl anation ACP-Advance Directive ACP-Power of Cash Van Salesperson Healthcare Agents on File Name Relationship Healthcare [...] other concerns. Please follow up with your nursing home manager and family doctor in 1-2 days. * Attachments The following attachments cannot be sent through Care Everywhere. * Rate-Control Medicines: General Info (Angolan) documented in this encounter* Attachments The following attachments cannot be sent through Care Everywhere. * Cardiac Arrhythmia (Angolan) documented in this encounter* Attachments The following attachments cannot be sent through Care Everywhere. * Numbness and Tingling (Angolan) documented in this encounter* Attachments The following attachments cannot be sent through Care Everywhere. * Numbness and Tingling (Angolan) documented in this encounter* Attachments The following attachments cannot be sent through Care Everywhere. * Diplopia (Angolan) documented in this encounter* Attachments The following attachments cannot be sent through Care Everywhere. * Palpitations (Angolan) documented in this encounter Reason for Referral Status Reason Specialty Diagnoses / Procedures Referre d By Contact Referred To Contact Closed EKG Diagnoses Palpitations Procedures Cardiac event monitor Demetrius Jimenez MD [address] [place] [address] [facility] [address] [place] [address] Status Reason Specialty Diagnoses / Procedures Referred By Contact Referred To Contact Open Diagnoses Palpitations Procedures Holter Monitor 48 Hour Siomara Mejia MD [address] [place] [address] [place] [address] Status Reason Specialty Diagnoses / Procedures Referre d By Contact Referred To Contact Open Diagnoses Palpitations Procedures Cardiac event monitor HC EVENT MONITOR - [facility] Demetrius Jimenez MD [address] [place] [address] Specialty Diagnoses / Procedures Referred By Contac t Referred To Contact Sleep Center Diagnoses Excessive daytime sleepiness Other sleep apnea Procedures Baseline Diagnostic Sleep Study Doug Arteaga MD [address] [place] [phone] Referral ID Status Reason Start Date Expiration Date V isits Requested Visits Authorized [id number] Not Required - RTA 09/12/2023 09/11/2024 1 1 Specialty Diagnoses / Procedures Referred By Contac t Referred To Contact Radiology Diagnoses Personal history of tobacco use Procedures CT Lung Screen (Initial/Annual/Baseline) Doug Arteaga MD [address] [place] [phone] Referral ID Status Reason Start Date Expiration Date V isits Requested Visits Authorized [id number] Not Required - RTA 05/02/2023 05/01/2024 1 1 Specialty Diagnoses / Procedures Referred By Contac t Referred To Contact Diagnoses Screening for AAA (abdominal aortic aneurysm) Procedures Vascular AAA screening Doug Arteaga MD [address] [place] [phone] Referral ID Status Reason Start Date Expiration Date V isits Requested Visits Authorized [id number] Not Required - RTA 05/02/2023 05/01/2024 1 1 Specialty Diagnoses / Procedures Referred By Contac t Referred To Contact Diagnoses Leg edema, left Procedures Vascular duplex lower extremity venous left Doug Arteaga MD [address] [place] [id number] Referral ID Status Reason Start Date Expiration Date V isits Requested Visits Authorized [id number] Not Required - RTA 03/21/2024 03/21/2025 1 [...] SEST. REST STRESS MULT Doug Arteaga MD [address] [place] [address] Reason Comments Tachycardia states has fast hear t beat off and on -today it didnt go away as fast as normal Status Reason Specialty Diagnoses / Procedures Referre d By Contact Referred To Contact Closed EKG Diagnoses Palpitations Procedures Cardiac event monitor Demetrius Jimenez MD [address] [place] [address] [facility] [address] [place] [address] Reason Comments Tachycardia rapid heart rate papo [...] Procedures Cardiac event monitor [facility] Dem[facility]ri[facility] Jimenze MD [address] [place] [address] Reason Comments Medication Refill Specialty Diagnoses / Procedures Referred By Juma ya Referred To Contact Sleep Center Diagnoses Excessive daytime sleepiness Other sleep apnea Procedures Baseline Diagnostic Sleep Study Doug Arteaga MD [address] [place] [address] [facility] [address] [place] [address] Referral ID Status Reason Start Date Expiration Date V isits Requested Visits Authorized [id number] Not Required - RTA 06/28/2023 06/27/2024 1 1 Specialty Diagnoses / Procedures Referred By Contac t Referred To Contact Radiology Diagnoses Personal history of tobacco use Procedures CT Lung Screen (Initial/Annual/Baseline) Doug Arteaga MD [address] [place] [phone] Referral ID Status Reason Start Date Expiration Date V isits Requested Visits Authorized [id number] Not Required - RTA 05/02/2023 05/01/2024 1 1 Specialty Diagnoses / Procedures Referred By Contac t Referred To Contact Diagnoses Screening for AAA (abdominal aortic aneurysm) Procedures Vascular AAA screening Doug Arteaga MD [address] [place] [phone] Referral ID Status Reason Start Date Expiration Date V isits Requested Visits Authorized [id number] Not Required - RTA 05/02/2023 05/01/2024 1 1 Specialty Diagnoses / Procedures Referred By Contac t Referred To Contact Diagnoses Leg edema, left Procedures Vascular duplex lower extremity venous left Doug Arteaga MD [address] [place] [id number] Referral ID Status Reason Start Date Expiration Date V isits Requested Visits Authorized [id number] Not Required - RTA 03/21/2024 03/21/2025 1 1 Care Team (unrecognized sect ion and content) Toll Service Observer Relationship Specialty Start Date End Date Doug Arteaga MD PCP - General Family Medicine 04/30/16 Toll Service Observer Relationship Specialty Start Date End Date Doug Arteaga MD PCP - General Family Medicine 04/30/16 Toll Service Observer Relationship Specialty Start Date End Date Doug Arteaga MD [address] [place], [place] [id number] PCP - General Family Medicine 06/09/17 Toll Service Observer Relationship Specialty Start Date End Date Doug Arteaga MD [address] [place] [address] PCP - General Family Medicine 06/09/17 Toll Service Observer Relationship Specialty Start Date End Date Doug Arteaga MD [address] [place] [address] PCP - General Family Medicine 06/09/17 (unrecognized [...] and content) DATE CREATED AUTHOR 10/12/2022 [facility]ital DATE CREATED AUTHOR AUTHOR'S ORGANIZ ATION 10/01/2023 [facility]ical [facility] DATE CREATED AUTHOR AUTHOR'S ORGANIZ ATION 03/26/2024 [facility] DATE CREATED AUTHOR AUTHOR'S ORGANIZ ATION 05/18/2024 [facility] DATE CREATED AUTHOR AUTHOR'S ORGANIZ ATION 05/19/2024 [facility] FOR RECORDS PERTAINING TO PATIENTS WHO [...] BE BASED ON THE PRIMARY CLINICAL RECORDS. [facility]. provides no warranty or guarantee of the accuracy or completeness of information in this document.
--- NOTE | 2024-05-20 19:53 | PC.NURSE ---
this patinet was taken upstairs awake and alert, voices no concerns and shows no signs of distress, this patient's bag this patient's belonging and walked upstairs with me and the patient
[2024-05-20] MEDS: OMEPRAZOLE 20 MG CAPSULE.DR PO (21:59)
[2024-05-20] MEDS: METOPROLOL TARTRATE 25 MG TABLET PO (22:00)
[2024-05-21] VITALS (10 sets, daily range): BP systolic 100–125; BP diastolic 54–71; PULSE 52–82; TEMP 36.8–37; O2SAT 90–94
[2024-05-21] MEDS: AMPICILLIN SODIUM/SULBACTAM NA 3 GM in 0.9 % SODIUM CHLORIDE 100 ML IV (04:14)
[2024-05-21 05:49] LABS: Basophils Percent Auto 0.2 % (0.2-2.0); Hematocrit 37.5 % (42.0-54.0); Immature Granulocytes Abs Auto 0.24 10^3/uL (0.00-0.03); Immature Granulocytes Pct Auto 2.3 % (0.0-0.5); Lymphocytes Percent Auto 9.6 % (20.5-60.0); Mean Corpuscular Hemoglobin 33.5 pg (25.9-34.0); Mean Corpuscular Volume 104.7 fL (80.0-94.0); Mean Platelet Volume 12.2 fL (9.5-13.5); Monocytes Absolute Auto 2.7 10^3/uL (0.3-0.8); Monocytes Percent Auto 26.1 % (1.7-12.0); Neutrophils Absolute Auto 6.5 10^3/uL (1.4-6.5); Neutrophils Percent Auto 61.8 % (43.0-75.0); Platelet Count 72 10^3/uL (150-450); Red Blood Count 3.58 10^6/uL (4.70-6.10); White Blood Count 10.5 10^3/uL (4.0-11.0)
--- OUTSIDE RECORDS SUMMARY | 2024-05-21 06:06 | XMS_ITS | CCD ---
Author Organization [employer] [facility] Care Team Providers Care Phytopathologist Name Role Phone Doug Arteaga Primary Care Provider DOUG ARTEAGA Primary Care Physician Doug Arteaga MD. Primary Care Provider [phone] LIZZIE Manzo, DR DASILVA Attending Unavailable HAY [...] Mbanefo Admitting Unavailable OJUKWU, Mbanefo Attending Unavailable Vis[place], Samantha Consulting Unavailable Visalia, Samantha Consulting Unavailable Visalia, Samantha Consulting Unavailable Visalia, Samantha Consulting Unavailable Visalia, Samantha Consulting Unavailable Visalia, Samantha Consulting Unavailable Visalia, Samantha Consulting Unavailable Visalia, Samantha Consulting Unavailable Vis[place], Samantha Consulting Unavailable OJUKWU, Mbanefo Admitting Unavailable [...] Daily, # 30 tab(s), Refills(s) 0, Pharmacy: [facility]/pharmacy #[id number], 168, cm, 05/15/24 15:01:00 EST, Height/Length [...] day(s), # 14 cap(s), Refills(s) 0, [id number], 170, cm, 11/27/22 16:29:00 EDT, Height/Length Dosing, [...] Start: 02-07-2023 take 1 capsule by mo [facility] once daily dilTIAZem (CARDIZEM CD) 120 MG [...] # 20 tab(s), Refills(s) 0, Pharmacy: [facility] #[id number], 170, cm, 11/27/22 16:29:00 EDT, Height/Length Dosing, [...] QID, # 120 tab(s), Refills(s) 0, Pharmacy: [address], 170, cm, 08/30/21 1:31:00 EDT, Height/Length [...] Coronary arteriosclerosis; Translations: [Atherosclerotic heart disease of [place] coronary artery without angina pectoris] Onset: 09-24-2015 [...] Other detention (current) drug therapy; Translations: [OTH [facility] CURRENT DRUG THERAPY] Onset: 06-28-2022 Episodic Other aftercare (1 source) long term care administrator (current) use of aspirin; Translations: [[facility] CURRENT [...] Test Name Value Interpretation Reference Range Facility [facility] 05-16-2024 Anion gap [Moles/Vol] 11 mmol/L Normal 6-16 [facility] Comment on above: Performed By: #### 2 [id number] #### [facility] [address] [place] [address] Calcium [Mass/Vol] 8.7 mg/dL Low 8.9-11.1 [facility] Comment on above: Performed By: #### 2 [id number] #### [facility] [address] [place] [address] Chloride [Moles/Vol] 105 mmol/L Normal 101-111 [facility] Comment on above: Performed By: #### 2 264802 #### [facility] [address] [place] [address] CO2 [Moles/Vol] 26 mmol/L Normal 21-31 [facility] Comment on above: Performed By: #### 2 488111 #### [facility] [address] [place] [address] Creatinine [Mass/Vol] 0.8 mg/dL Normal 0.5-1.3 [facility] Comment on above: Performed By: #### 2 288989 #### [facility] [address] [place] [address] Glucose [Mass/Vol] 85 mg/dL Normal 55-199 [facility] Comment on above: Performed By: #### 2 889996 #### [facility] [address] [place] [address] Potassium [Moles/Vol] 4.0 mmol/L Normal 3.5-5.3 [facility] Comment on above: Performed By: #### 2 012311 #### [facility] [address] [place] [address] Sodium [Moles/Vol] 138 mmol/L Normal 135-145 [facility] Comment on above: Performed By: #### 2 131903 #### [facility] [address] [place] [address] Urea nitrogen [Mass/Vol] 18 mg/dL Normal 5-21 [facility] Comment on above: Performed By: #### 2 336825 #### [facility] [address] [place] [address] Urea nitrogen/Creatinine [Mass ratio] 22 No Units High 10-20 [facility] Comment on above: Performed By: #### 2 358725 #### [facility] [address] [place] [address] CBC w/ Auto Diffon 4 Basophils/100 WBC (Bld) 0.2 % Normal 0.0-2.0 [facility] Comment on above: Performed By: #### 2 255398 #### [facility] [address] [place] [address] Basophils/Leukocytes Auto (Bld) [Pure # fraction] 0.0 E9/L Normal 0.0-0.2 [facility] Comment on above: Performed By: #### 2 295108 #### [facility] [address] [place] [address] Eosinophils (Bld) [#/Vol] 0.0 E9/L Normal 0.0-0.5 [facility] Comment on above: Performed By: #### 2 [id number] #### [facility] [address] [place] [address] Eosinophils/100 WBC (Bld) 0.2 % Normal 0.0-8.0 [facility] Comment on above: Performed By: #### 2 390579 #### [facility] [address] [place] [address] Erythrocyte distribution width (RBC) [Ratio] 14.8 % High 10.9-14.2 [facility] Comment on above: Performed By: #### 2 359824 #### [facility] [address] [place] [address] Hematocrit (Bld) [Volume fraction] 38.5 % Normal 37.7-49.0 [facility] Comment on above: Performed By: #### 2 960121 #### [facility] [address] [place] [address] Hemoglobin (Bld) [Mass/Vol] 13.1 g/dL Low 13.5-17.5 [facility] Comment on above: Performed By: #### 2 047594 #### [facility] [address] [place] [address] Lymphocytes (Bld) [#/Vol] 2.0 E9/L Normal 1.0-4.0 [facility] Comment on above: Performed By: #### 2 403976 #### [facility] [address] [place] [address] Lymphocytes/100 WBC (Bld) 35.7 % Normal 14.0-50.0 [facility] Comment on above: Performed By: #### 2 479159 #### [facility] [address] [place] [address] MCH (RBC) [Entitic mass] 34.8 pg High 27.0-34.0 [facility] Comment on above: Performed By: #### 2 080374 #### [facility] [address] [place] [address] MCHC (RBC) [Mass/Vol] 34.0 g/dL Normal 31.4-36.0 [facility] Comment on above: Performed By: #### 2 755271 #### [facility] [address] [place] [address] MCV (RBC) [Entitic vol] 102.4 fL High 80.0-100.0 [facility] Comment on above: Performed By: #### 2 437499 #### [facility] [address] [place] [address] Monocytes (Bld) [#/Vol] 1.0 E9/L Normal 0.2-1.0 [facility] Comment on above: Performed By: #### 2 079154 #### [facility] [address] [place] [address] Neutrophils (Bld) [#/Vol] 2.6 E9/L Normal 2.0-7.5 [facility] Comment on above: Performed By: #### 2 980897 #### [facility] [address] [place] [address] Neutrophils/100 WBC (Bld) 46.0 % Normal 36.0-75.0 [facility] Comment on above: Performed By: #### 2 240338 #### [facility] [address] [place] [address] Platelet mean volume (Bld) [Entitic vol] 10.5 fL Normal 6.4-10.8 [facility] Comment on above: Performed By: #### 2 898985 #### [facility] [address] [place] [address] Platelets (Bld) [#/Vol] 97.0 E9/L Low 150.0-500.0 [facility] Comment on above: Performed By: #### 2 634559 #### [facility] [address] [place] [address] RBC (Bld) [#/Vol] 3.8 E12/L Low 4.3-5.9 [facility] Comment on above: Performed By: #### 2 393123 #### [facility] [address] [place] [address] WBC corrected for nucl RBC Auto (Bld) [#/Vol] 5.6 E9/L Normal 4.0-11.0 [facility] Comment on above: Performed By: #### 2 563580 #### [facility] [address] [place] [address] CHEMISTRYOrdered By: SYSTEM SYSTEM on 05-16-2024 Anion [...] (Bld) [Mass fraction] 5.1 % Normal <=5.9% [facility] ChemAutoSS CTA Headon 12-18-2024 CTA Head Exam [...] 370 Contrast amount in ml's: 88 Normal [facility] CTA Neckon 05-16-2024 CTA Neck Exam Date/Time: [...] 370 Contrast amount in ml's: 88 Normal [facility] Discharge Note-Nursingon Discharge Note-Nursing Discharge Note-Nursing NORY [...] do in patient paper work. Where: [address] [facility] [address] [place] [phone]- Business (1) Follow Up with DOUG ARTEAGA When: Within 5 to 7 days Comments: Office was closed for lunch. Patient needs to call to make hospital follow up appointment. Where: [address] [place] [address]- Business (1) Medications What How Much When Instructions Next Dose New aspirin (aspirin 81 mg Oral EC Tab) 1 Tablets By Mouth Every day 05/17/2024 New atorvastatin (atorvastatin 40 mg Tab) 1 Tablets By Mouth Every day Pickup at [facility]/pharmacy #[id number] Begin 05/17/2024 Unchanged diltiazem (DilTIAZem (Eqv-Cardizem CD) 120 mg/ 24 hours oral capsule, extended release) See instructions Resume 05/17/2024 Unchanged lansoprazole (Prevacid 30 mg Cap-EC) 1 Capsules By Mouth Every day Take one capsule by mouth every day 05/17/2024 Unchanged metoprolol (Lopressor 25 mg oral tablet) See instructions Resume 05/17/2024 Pharmacy Information [facility]/pharmacy #[id number]: [address], [place] [id number] [phone] What How Much When Comments Stop Taking [...] stroke-like symptoms (more content not included)... Normal [facility] HEMATOLOGYOrdered By: SYSTEM SYSTEM on 05-16-2024 Basophils/100 [...] Normal 4.0 - 11.0 E9/L Remisol Heme [id number] 05-16-2024 HbA1c (Bld) [Mass fraction] 5.1 % Normal <=5.9 [facility] Comment on above: Performed By: #### 7 [id number] #### [facility] [address] [place] [address] Inpatient Clinical Summaryon 05-16-2024 Inpatient Clinical Summary Inpatient Clinical Summary [facility] [address] [place], [place] [address] Clinical Summary Person Information: Name: NORY DSOUZA Age: 69 Years : 1955 Sex: Male PCP: DOUG ARTEAGA MD Marital Status: Phone: Race: White Ethnicity: Non- or Language: [place] Visit Id: Visit Reason: Weakness or fatigue; Paresthesia; LEFT SIDE TIGGLING Speciality: Acuity: Enc Type: Observation Med Service: Medical Arrival: 05/15/2024 14:52:20 Discharge: Dispo Type: Admitted as IP to this Hosp Address: [address] [place] [phone] Provider Notes: Diagnosis: 2:Hyperlipidemia; 3:HTN (hypertension); 4:GERD [...] Care Team Members: Attending Physician: INES FISCHER, [facility] Consulting Physician: Samantha Mccoy MD; Bita FISCHER, Hiram Kraft Referring Physician: Follow up: With: Address: When: DOUG ARNOL [address] [place] [address] [facility] (1) Within 5 to 7 days Comments: Office was closed for lunch. Patient needs to call to make hospital follow up appointment. With: Address: When: Samantha Mccoy MD[facility] [place] [address] Within 2 to 4 weeks Patient Education Information: Normal [facility] Inpatient Patient Summaryon 05-16-2024 Inpatient Patient Summary Inpatient Patient Summary [address] [address] Patient Discharge Instructions PERSON INFORMATION [...] Follow up: With: Address: When: DOUG ARTEAGA [address] [place] [address] Business (1) Within 5 to 7 days Comments: Office was closed for lunch. Patient needs to call to make hospital follow up appointment. With: Address: When: Darius FISCHER, SIERRA Ayala [address] [address] Within 2 to 4 weeks [...] STAY New Medications [id number], [address] [facility] [place] [id number], [phone] atorvastatin (atorvastatin 40 mg Tab) 1 Tablets [...] Leaflets: You may receive a survey from [employer] asking you to rate your care experience. Your feedback is important and will help us understand what we do well and how we can improve the quality of care we provide to you, your loved ones and our community. It???s an honor to serve you. Thank you for choosing [facility] Interdisciplinary Note - Junaid e Manageron 05-16-2024 Interdisciplinary Note - Presidential Support Specialist Interdisciplinary Note - Presidential Support Specialist This SW rounded with patient today. He [...] Paramedicine. Family will transport him at d/c. [facility] Comment on above: Result Comment: Elec tronically Signed By: Lori MONTERO, Sanaz Collins.br\Date and Time Signed: 05/16/24 11:16 EST Interdisciplinary Note - Denisse n 05-16-2024 Interdisciplinary Note - OT Interdisciplinary Note - OT OT [facility] six clicks score 23/ = no further OT needs. Patient is modified Ind w/ basic adls and transfers in room and declines further OT needs. DC inpatient OT services. Normal [facility] Lipid Panelon 05-16-2024 Cholesterol [Mass/Vol] 122 mg/dL Normal 120-200 [facility] Comment on above: Performed By: #### 2 191399 #### [facility] [address] [place] [address] Cholesterol in HDL [Mass/Vol] 46 mg/dL Invalid Interpretation Code [facility] Comment on above: Result Comment: '>= 60 LOW RISK' '<= 40 HIGH RISK' Performed By: #### 2 233400 #### [facility] [address] [place] [address] Cholesterol in LDL [Mass/Vol] 70 mg/dL Normal <=129 [facility] Comment on above: Performed By: #### 2 394795 #### [facility] [address] [place] [address] Cholesterol in VLDL [Mass/Vol] 14 mg/dL Normal 7-40 [facility] Comment on above: Performed By: #### 2 847373 #### [facility] [address] [place] [address] Triglyceride [Mass/Vol] 71 mg/dL Normal <=149 [facility] Comment on above: Performed By: #### 2 196477 #### [facility] [address] [place] [address] eGFRon 05-16-2024 eGFR 95 mL/min/1.73 m2 Normal >=59 [facility] Comment on above: Performed By: #### 1 [id number] #### [facility] [address] [place] [address] BB Draw & Holdon 05-15-2024 BB D&H Sample drawn for Blood Ba Normal [facility] Comment on above: Performed By: #### 1 [id number] #### [facility] [address] [place] [address] CBC w/ Auto Diffon 4 Basophils/100 WBC (Bld) 0.5 % Normal 0.0-2.0 [facility] Comment on above: Performed By: #### 2 129603 #### [facility] [address] [place] [address] Basophils/Leukocytes Auto (Bld) [Pure # fraction] 0.0 E9/L Normal 0.0-0.2 [facility] Comment on above: Performed By: #### 2 251054 #### [facility] [address] [place] [address] Eosinophils (Bld) [#/Vol] 0.0 E9/L Normal 0.0-0.5 [facility] Comment on above: Performed By: #### 2 661971 #### [facility] [address] [place] [address] Eosinophils/100 WBC (Bld) 0.3 % Normal 0.0-8.0 [facility] Comment on above: Performed By: #### 2 736333 #### [facility] [address] [place] [address] Erythrocyte distribution width (RBC) [Ratio] 14.8 % High 10.9-14.2 [facility] Comment on above: Performed By: #### 2 897549 #### [facility] [address] [place] [address] Hematocrit (Bld) [Volume fraction] 39.4 % Normal 37.7-49.0 [facility] Comment on above: Performed By: #### 2 662006 #### [facility] [address] [place] [address] Hemoglobin (Bld) [Mass/Vol] 13.3 g/dL Low 13.5-17.5 [facility] Comment on above: Performed By: #### 2 973943 #### [facility] [address] [place] [address] Lymphocytes (Bld) [#/Vol] 1.5 E9/L Normal 1.0-4.0 [facility] Comment on above: Performed By: #### 2 879174 #### [facility] [address] [place] [address] Lymphocytes/100 WBC (Bld) 29.8 % Normal 14.0-50.0 [facility] Comment on above: Performed By: #### 2 266497 #### [facility] [address] [place] [address] MCH (RBC) [Entitic mass] 34.7 pg High 27.0-34.0 [facility] Comment on above: Performed By: #### 2 908357 #### [facility] [address] [place] [address] MCHC (RBC) [Mass/Vol] 33.7 g/dL Normal 31.4-36.0 [facility] Comment on above: Performed By: #### 2 358620 #### [facility] [address] [place] [address] MCV (RBC) [Entitic vol] 103.0 fL High 80.0-100.0 [facility] Comment on above: Performed By: #### 2 687954 #### [facility] [address] [place] [address] Monocytes (Bld) [#/Vol] 0.8 E9/L Normal 0.2-1.0 [facility] Comment on above: Performed By: #### 2 705004 #### [facility] [address] [place] [address] Neutrophils (Bld) [#/Vol] 2.7 E9/L Normal 2.0-7.5 [facility] Comment on above: Performed By: #### 2 108617 #### [facility] [address] [place] [address] Neutrophils/100 WBC (Bld) 52.8 % Normal 36.0-75.0 [facility] Comment on above: Performed By: #### 2 194358 #### [facility] [address] [place] [address] Platelet mean volume (Bld) [Entitic vol] 10.5 fL Normal 6.4-10.8 [facility] Comment on above: Performed By: #### 2 821290 #### [facility] [address] [place] [address] Platelets (Bld) [#/Vol] 94.0 E9/L Low 150.0-500.0 [facility] Comment on above: Performed By: #### 2 097103 #### [facility] [address] [place] [address] RBC (Bld) [#/Vol] 3.8 E12/L Low 4.3-5.9 [facility] Comment on above: Performed By: #### 2 901646 #### [facility] [address] [place] [address] WBC corrected for nucl RBC Auto (Bld) [#/Vol] 5.1 E9/L Normal 4.0-11.0 [facility] Comment on above: Performed By: #### 2 168517 #### [facility] [address] [place] [address] CHEMISTRYOrdered By: Lab ROP User on 05-15-2024 Glucose [Mass/Vol] 79 mg/dL Normal 55 - 99 mg/dL [facility] POC Subsection POC Device SN [id number] Invalid Interpretation Code [facility] POC Subsection POC User ID [id number] 1 Invalid Interpretation Code [facility] POC Subsection POC Username VIN [place] Invalid Interpretation Code [facility] POC Subsection CHEMISTRYOrdered By: SYSTEM SYSTEM on [...] Sensitivity Troponin I Instructions For Use, Marilyn [facility], December 2017) Urea nitrogen [Mass/Vol] 17 mg/dL Normal 5 - 21 mg/dL Remisol Chem Urea nitrogen/Creatinine [Mass ratio] 19 mg/mg Normal 10 - 20 Remisol Chem CMPon 05-15-2024 Albumin [Mass/Vol] 4.0 g/dL Normal 3.3-5.0 [facility] Comment on above: Performed By: #### 2 068383 #### [facility] [address] [place] [address] Albumin/Globulin (S) [Mass conc ratio] 1.4 Normal 1.1-2.2 [facility] Comment on above: Performed By: #### 2 428855 #### [facility] [address] [place] [address] ALP [Catalytic activity/Vol] 62 Int._Unit/L Normal 21-98 [facility] Comment on above: Performed By: #### 2 889049 #### [facility] [address] [place] [address] ALT No additional P-5'-P [Catalytic activity/Vol] 10 Int._Unit/L Normal 6-46 [facility] Comment on above: Performed By: #### 2 996755 #### [facility] [address] [place] [address] Anion gap [Moles/Vol] 8 mmol/L Normal 6-16 [facility] Comment on above: Performed By: #### 2 528203 #### [facility] [address] [place] [address] AST [Catalytic activity/Vol] 17 Int._Unit/L Normal 5-43 [facility] Comment on above: Performed By: #### 2 857542 #### [facility] [address] [place] [address] Bilirubin [Mass/Vol] 0.9 mg/dL Normal 0.0-1.1 [facility] Comment on above: Performed By: #### 2 533115 #### [facility] [address] [place] [address] Calcium [Mass/Vol] 8.7 mg/dL Low 8.9-11.1 [facility] Comment on above: Performed By: #### 2 188182 #### [facility] [address] [place] [address] Chloride [Moles/Vol] 105 mmol/L Normal 101-111 [facility] Comment on above: Performed By: #### 2 697242 #### [facility] [address] [place] [address] CO2 [Moles/Vol] 29 mmol/L Normal 21-31 [facility] Comment on above: Performed By: #### 2 885864 #### [facility] [address] [place] [address] Creatinine [Mass/Vol] 0.9 mg/dL Normal 0.5-1.3 [facility] Comment on above: Performed By: #### 2 703348 #### [facility] [address] [place] [address] Globulin (S) [Mass/Vol] 2.8 g/dL Normal 1.4-4.0 [facility] Comment on above: Performed By: #### 2 762509 #### [facility] [address] [place] [address] Glucose [Mass/Vol] 89 mg/dL Normal 55-199 [facility] Comment on above: Performed By: #### 2 580990 #### [facility] [address] [place] [address] Potassium [Moles/Vol] 4.3 mmol/L Normal 3.5-5.3 [facility] Comment on above: Performed By: #### 2 251775 #### [facility] [address] [place] [address] Protein [Mass/Vol] 6.8 g/dL Normal 6.0-7.8 [facility] Comment on above: Performed By: #### 2 652330 #### [facility] [address] [place] [address] Sodium [Moles/Vol] 138 mmol/L Normal 135-145 [facility] Comment on above: Performed By: #### 2 647529 #### [facility] [address] [place] [address] Urea nitrogen [Mass/Vol] 17 mg/dL Normal 5-21 [facility] Comment on above: Performed By: #### 2 501110 #### [facility] [address] [place] [address] Urea nitrogen/Creatinine [Mass ratio] 19 No Units Normal 10-20 [facility] Comment on above: Performed By: #### 2 741836 #### [facility] [address] [place] [address] COAGULATIONOrdered By: Lois Sanford on 05-15-2024 aPTT Coag (PPP) [Time] 29.6 s Normal 25.1 - 36.5 second(s) [facility] Auto Coag Comment on above: Interpretive Data: [...] the same coagulation reagent and instrumentation as [facility]. Currently there are no coagulation studies available worldwide for children to 14 days, and no normal ranges. Heparin therapeutic range (represented by Anti-Factor Xa activity of 0.2 - 0.4 U/mL) corresponds to PTT of 56.6 - 109.0 sec. INR Coag (PPP) [Relative time] 1.08 {INR} Invalid Interpretation Code [facility] Auto Coag Comment on above: Interpretive Data: I NR results are specifically intended to assess patients stabilized on long-term Anticoagulation therapy suggested INR s Less Intensive Anticoagulation 2.0 3.0 Conventional Range 3.0 4.5 PT Coag (PPP) [Time] 12.1 s Normal 9.4 - 1 2.5 second(s) [facility] Auto Coag Comment on above: Interpretive Data: [...] the same coagulation reagent and instrumentation as [facility]. Currently there are no coagulation studies available [...] acute intra or extra axial findings. Normal [facility] Capillary Glucose POCon - Glucose [Mass/Vol] 79 mg/dL Normal 55-99 [facility] Comment on above: Performed By: #### 2 [id number] #### [facility] [address] [place] [address] ED Clinical Summaryon 2023 ED Clinical Summary ED Clinical Summary [address] [address] ED Clinical Summary Person Information Name: NORY DSOUZA [place] Age: 69 Years : 1955 Sex: Male Language: [place] PCP: DOUG ARTEAGA MD Marital Status: Phone: Visit Id: Visit Reason: Weakness or fatigue; Paresthesia; LEFT SIDE TIGGLING Speciality: Acuity: 2 Enc Type: Observation Med Service: Medical Arrival: 05/15/2024 14:52:20 Discharge: LOS: 000 03:01 Checkin: 05/15/2024 14:52:20 Checkout: 05/15/2024 17:53:33 Dispo Type: Admitted as IP to this [facility] EVENTS: Event Name Event Status Request Date/Time [...] 05/15/2024 17:53:33 05/15/2024 17:53:33 05/15/2024 17:53:33 ADDRESS: [address] [place] [phone] PHYS DOC NOTES: MEDICAL INFORMATION: Prescriptions Given: [...] (hypertension); 4:GERD (gastroesophageal reflux disease); 5:Smoker Normal [facility] ED Note-Physicianon 05-15-20 ED Note-Physician ED Note-Physician [...] of prostate cancer Frequent urination Hx of long term care administrator use of blood thinners Hyperlipidemia Nocturia Post-void [...] 15:01:00) HGB (more content not included)... Normal [facility] [facility] Comment on above: Result Comment: Elec tronically Signed By: Robson Cartwright DO\.br\Date and Time Signed: 05/15/24 16:11 EST ED Patient Education Noteon 05-15-2024 ED Patient Education Note ED Patient Education Note Normal [facility] ED Patient Summaryon 024 ED Patient Summary ED Patient Summary [place] [address] Patient Discharge Instructions Person Information Name: NORY DSOUZA Age: 69 Years Arrival Date: 05/15/2024 14:52:20 Discharge Diagnosis: 2:Hyperlipidemia; 3:HTN (hypertension); 4:GERD (gastroesophageal reflux disease); 5:Smoker Primary Care Physician: DOUG ARTEAGA MD Provider Information Primary Provider: Robson Cartwright DO Advanced Client Director:None The exam and treatment you received in the Emergency Department were for an urgent problem and are not intended as complete care. It is important that you follow up with a doctor, nurse practitioner, or physician???s assistant teacher primary for ongoing care. If your symptoms become [...] opioids can be used to help relieve [id number] pain and are often prescribed following a [...] be struggling with addiction, tell your health hospice patient care secretary and ask for guidance or call [facility]???S National Helpline at 0-470-726-TIMB. k Source: [place] (more content not included)... Normal [facility] HEMATOLOGYOrdered By: SYSTEM SYSTEM on 05-15-2024 Basophils/100 [...] Coag (PPP) [Time] 29.6 second(s) Normal 25.1-36.5 [facility] Comment on above: Result Comment: Para meter [...] the same coagulation reagent and instrumentation as [facility]. Currently there are no coagulation studies available worldwide for children to 14 days, and no normal ranges. Heparin therapeutic range (represented by Anti-Factor Xa activity of 0.2 - 0.4 U/mL) corresponds to PTT of 56.6 - 109.0 sec. Performed By: #### 1 [id number] #### [facility] [address] [place] [address] INR Coag (PPP) [Relative time] 1.08 {INR} Invalid Interpretation Code [facility] Comment on above: Result Comment: INR results are specifically intended to assess patients stabilized on long-term Anticoagulation therapy suggested INR???s ???Less Intensive Anticoagulation??? 2.0 ??? 3.0 Conventional Range 3.0 ??? 4.5 Performed By: #### 1 [id number] #### [facility] [address] [place] [address] PT Coag (PPP) [Time] 12.1 second(s) Normal 9.4-12.5 [facility] Comment on above: Result Comment: 15 d [...] the same coagulation reagent and instrumentation as [facility]. Currently there are no coagulation studies available worldwide for children to 14 days, and no normal ranges. Performed By: #### 1 [id number] #### [facility] [address] [place] [address] Troponin 0 Hr.on 05-15-2024 Troponin HS 5.80 pg/mL Low 15.90-38.40 [facility] Comment on above: Result Comment: The 95% CI (Confidence Interval) PPV (Positive Predictive Value) for myocardial infarction in females is 38 pg/mL, in males 51 pg/mL. The results should be used in conjunction with clinical conditions of myocardial infarction. (Access High Sensitivity Troponin I Instructions For Use, Marilyn frooly, December 2017) Performed By: #### 1 [id number] #### [facility] [address] [place] [id number] UA with Cult Rflxon 05-15-20 24 Bilirubin Ql (U) Negative Normal Negative [facility] Comment on above: Performed By: #### 4 [id number] #### [facility] [address] [place] [address] Clarity (U) Clear Normal Clear [facility] Comment on above: Performed By: #### 4 [id number] #### [facility] [address] [place] [address] Color (U) Light-Yellow Normal Yellow [facility] Comment on above: Result Comment: Micr oscopic readings are only performed on those samples that meet specific criteria set forth by [facility]. Performed By: #### 4 [id number] #### [facility] [address] [place] [address] Glucose Ql (U) Negative Normal Negative [facility] Comment on above: Performed By: #### 4 [id number] #### [facility] [address] [place] [address] Hemoglobin Auto test strip (U) [Mass/Vol] Trace Abnormal Negative [facility] Comment on above: Performed By: #### 4 [id number] #### [facility] [address] [place] [address] Ketones Auto test strip Ql (U) Negative Normal Negative [facility] Comment on above: Performed By: #### 4 [id number] #### [facility] [address] [place] [address] Leukocyte esterase Auto test strip Ql (U) Negative Normal Negative [facility] Comment on above: Performed By: #### 4 [id number] #### [facility] [address] [place] [address] Nitrite Auto test strip Ql (U) Negative Normal Negative [facility] Comment on above: Performed By: #### 4 [id number] #### [facility] [address] [place] [address] pH (U) 7.0 [pH] Invalid Interpretation Code 5.0-9.0 [facility] Comment on above: Performed By: #### 4 [id number] #### [facility] [address] [place] [address] Protein Ql (U) Negative Normal Negative [facility] Comment on above: Performed By: #### 4 [id number] #### [facility] [address] [place] [address] Specific gravity (U) [Rel density] 1.023 Invalid Interpretation Code 1.005-1.030 [facility] Comment on above: Performed By: #### 4 [id number] #### [facility] [address] [place] [address] Urobilinogen (U) [Mass/Vol] 2 mg/dL Abnormal Negative [facility] Comment on above: Performed By: #### 4 [id number] #### [facility] [address] [place] [address] Type of Urine collection method Clean Catch Normal [facility] Comment on above: Performed By: #### 4 [id number] #### [facility] [address] [place] [address] URINALYSISOrdered By: SYSTEM SYSTEM on 05-15-2024 Bilirubin Ql (U) Negative Normal Negativemg/ d L [facility] UA Auto SS Clarity (U) Clear (05/15/24 4:46 PM) Normal Clear [facility] UA Auto SS Color (U) Light-Yellow 1 (05/15/24 4:46 PM) Normal Yellow [facility] UA Auto SS Comment on above: Interpretive Data: M icroscopic readings are only performed on those samples that meet specific criteria set forth by [facility]. Glucose Ql (U) Negative Normal Negativemg/d [...] Desc Clean Catch (05/15/24 4:46 PM) Normal [facility] UA Auto SS XR Chest Single Viewon [...] mGy = na DAP = na Normal [facility] eGFRon 05-15-2024 eGFR 91 mL/min/1.73 m2 Normal >=59 [facility] Comment on above: Performed By: #### 1 [id number] #### [facility] [address] [place] [address] Brain Natri. Peptideon 03-23 Natriuretic peptide B (Bld) [Mass/Vol] 143 pg/mL Normal <300 [facility] Comment on above: Result Comment: An age-independent cutoff point of 300 pg/ml has a 98% negative predictive value excluding acute heart failure. Performed By: #### B LOCOMOTIVE SUPERVISOR #### [facility] [address] [place] [address] Stenciling Machine Tender: Juanjose Osorio MD Vascular duplex lower extrem ity venous lefton 03-23-2024 Left lower extremity edema without DVT. [facility] EXAM: VAS DUP LOWER EXTREMITY [...] left groin. 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 During the study longitudinal and transverse views were obtained. Pulsed wave doppler was performed. [facility] Sajan Sanchez Jr., MD - [...] IMPRESSION: Left lower extremity edema without DVT. [facility] Radiology Study observation (narrative) [facility] Vascular duplex lower extrem ity venous leftOrdered By: Sajan Sanchez on 03-23-2024 [facility] Work Phone: Basic Metabolic Profon 11-15 Anion gap [Moles/Vol] 6 mmol/L Low 9-17 [facility] Comment on above: Performed By: #### B MP #### [facility] [address] [place] [address] Stenciling Machine Tender: Juanjose Osorio MD BUN/CRE Ratio 18 Normal 9-20 [facility] Comment on above: Performed By: #### B MP #### [facility] [address] [place] [address] Stenciling Machine Tender: Juanjose Osorio MD Calcium [Mass/Vol] 9.3 mg/dL Normal 8.6-10.4 [facility] Comment on above: Performed By: #### B MP #### [facility] [address] [place] [address] Stenciling Machine Tender: Juanjose Osorio MD Chloride [Moles/Vol] 103 mmol/L Normal 98-107 [facility] Comment on above: Performed By: #### B MP #### [facility] [address] [place] [address] Stenciling Machine Tender: Juanjose Osorio MD CO2 [Moles/Vol] 30 mmol/L Normal 20-31 [facility] Comment on above: Performed By: #### B MP #### [facility] [address] [place] [address] Stenciling Machine Tender: Juanjose Osorio MD Creatinine [Mass/Vol] 0.9 mg/dL Normal 0.7-1.2 [facility] Comment on above: Performed By: #### B MP #### [facility] [address] [place], [place] [id number] Stenciling Machine Tender: Juanjose Osorio MD GFR/1.73 sq M.predicted among non-blacks MDRD (S/P/Bld) [Vol rate/Area] mL/min/{1.73_m2} Normal >60 [facility] Comment on above: Result Comment: These [...] secretion. Performed By: #### B MP #### [facility] [address] [place], [place] [id number] Stenciling Machine Tender: Juanjose Osorio MD Glucose [Mass/Vol] 88 mg/dL Normal 70-99 [facility] Comment on above: Performed By: #### B MP #### [facility] [address] [place], [place] [id number] Stenciling Machine Tender: Juanjose Osorio MD Potassium [Moles/Vol] 4.2 mmol/L Normal 3.7-5.3 [facility] Comment on above: Performed By: #### B MP #### [facility] [address] [place], [place] [id number] Stenciling Machine Tender: Juanjose Osorio MD Sodium [Moles/Vol] 139 mmol/L Normal 135-144 [facility] Comment on above: Performed By: #### B MP #### [facility] [address] [place], [place] [id number] Stenciling Machine Tender: Juanjose Osorio MD Urea nitrogen [Mass/Vol] 16 mg/dL Normal 8-23 [facility] Comment on above: Performed By: #### B MP #### [facility] [address] [place], [place] [id number] Stenciling Machine Tender: Juanjose Osorio MD PSA, Screeningon 11-16-2023 Prostatic Spec. Ag 1.10 ng/mL Normal 0.00-4.00 [facility] Comment on above: Result Comment: The Apollo ECLIA assay is used. Results obtained with different assay methods cannot be used interchangeably. Performed By: #### P SAS #### [facility] [employer] [facility] [place] [id number] Stenciling Machine Tender: Sudhir Cheng MD CT Chest for screeningon Lung RADS 1, negative. Management: Low-dose CT chest one year. [facility] EXAM: CT LUNG SCREENING (INITIAL/ANNUAL) [...] lingula. CORONARY ARTERIES: Coronary calcifications are moderate. [facility] Radiology Study observation (narrative) [facility] CT Chest for screeningOrdere d By: Sajan Sanchez on 11-02-2023 [facility] Work Phone: CT LUNG SCREENING (INITIAL/A NNUAL)on [...] Sanchez Jr., MD 11/02/23 Final result Normal [facility] Vascular AAA screeningon FINDINGS/IMPRESSION: 1. Greatest transverse diameter of the aorta is 2.4 cm. 2. The iliac arteries are normal at 1.2 cm on the right and 1.2 cm on the left. 3. Occasional plaque is identified. 4. No abdominal aortic aneurysm. [facility] EXAM: VAS AAA SCREENING HISTORY: Screening for AAA COMPARISON: 07/12/2014 CT abdomen and pelvis. [facility] Sajan Sanchez Jr., MD - 11/02/2023 EXAM: VAS AAA SCREENING HISTORY: Screening for AAA COMPARISON: 07/12/2014 CT abdomen and pelvis. IMPRESSION: FINDINGS/IMPRESSION: 1. Greatest transverse diameter of the aorta is 2.4 cm. 2. The iliac arteries are normal at 1.2 cm on the right and 1.2 cm on the left. 3. Occasional plaque is identified. 4. No abdominal aortic aneurysm. [facility] Radiology Study observation (narrative) [facility] Vascular AAA screeningOrdere d By: Sajan Sanchez on 11-02-2023 [facility] Work Phone: Basic Metabolic Profon 06-28 Anion gap [Moles/Vol] 9 mmol/L Normal 9-17 [facility] Comment on above: Performed By: #### B MP #### [facility] [address] [place] [address] Stenciling Machine Tender: Juanjose Osorio MD BUN/CRE Ratio 23 High 9-20 [facility] Comment on above: Performed By: #### B MP #### [facility] [address] [place], [place] [id number] Stenciling Machine Tender: Juanjose Osorio MD Calcium [Mass/Vol] 8.7 mg/dL Normal 8.6-10.4 [facility] Comment on above: Performed By: #### B MP #### [facility] [address] [place], [place] [id number] Stenciling Machine Tender: Juanjose Osorio MD Chloride [Moles/Vol] 102 mmol/L Normal 98-107 [facility] Comment on above: Performed By: #### B MP #### [facility] [address] [place], [place] [id number] Stenciling Machine Tender: Juanjose Osorio MD CO2 [Moles/Vol] 26 mmol/L Normal 20-31 [facility] Comment on above: Performed By: #### B MP #### [facility] [address] [place] [address] Stenciling Machine Tender: Juanjose Osorio MD Creatinine [Mass/Vol] 0.7 mg/dL Normal 0.7-1.2 [facility] Comment on above: Performed By: #### B MP #### [facility] [address] [place], [place] [id number] Stenciling Machine Tender: Juanjose Osorio MD GFR/1.73 sq M.predicted among non-blacks MDRD (S/P/Bld) [Vol rate/Area] mL/min/{1.73_m2} Normal >60 [facility] Comment on above: Result Comment: These [...] secretion. Performed By: #### B MP #### [facility] [address] [place], [place] [id number] Stenciling Machine Tender: Juanjose Osorio MD Glucose [Mass/Vol] 91 mg/dL Normal 70-99 [facility] Comment on above: Performed By: #### B MP #### [facility] [address] [place], [place] [id number] Stenciling Machine Tender: Juanjose Osorio MD Potassium [Moles/Vol] 4.4 mmol/L Normal 3.7-5.3 [facility] Comment on above: Performed By: #### B MP #### [facility] [address] [place], [place] [id number] Stenciling Machine Tender: Juanjose Osorio MD Sodium [Moles/Vol] 137 mmol/L Normal 135-144 [facility] Comment on above: Performed By: #### B MP #### [facility] [address] [place], [place] [id number] Stenciling Machine Tender: Juanjose Osorio MD Urea nitrogen [Mass/Vol] 16 mg/dL Normal 8-23 [facility] Comment on above: Performed By: #### B MP #### [facility] [address] [place], [place] [id number] Stenciling Machine Tender: Juanjose Osorio MD XR CHEST (2 VW)on [...] Brittany Chester MD 06/28/23 Final result Normal [facility] CHEMISTRYOrdered By: SYSTEM SYSTEM on 11-27-2022 Anion gap [Moles/Vol] 10 mmol/L Normal 6 - 16 mEq/L F [facility] Remisol Calcium [Mass/Vol] 8.9 mg/dL Normal 8.9 - 11. 1 mg/dL [facility] Chloride [Moles/Vol] 104 mmol/L Normal 101 - 1 11 mmol/L [facility] CO2 [Moles/Vol] 26 mmol/L Normal 21 - 31 mmol/L [facility] Creatinine [Mass/Vol] 1.0 mg/dL Normal 0.5 - 1.3 mg/dL [facility] GFR/1.73 sq M.predicted among non-blacks MDRD (S/P/Bld) [Vol rate/Area] 81 mL/min/1.73 m2 Normal >=59mL/min/1 .73 m2 [facility] Chem S Glucose [Mass/Vol] 88 mg/dL Normal [...] 25 pg/mL Normal 5 - 80 pg/mL [facility] HemeManSS COAGULATIONOrdered By: Arpit Quinonez on 11-27-2022 aPTT Coag (PPP) [Time] 31.9 s Normal 25.1 - 36.5 second(s) [facility] Auto Coag INR Coag (PPP) [Relative time] [...] Interpretation Code Negative [facility] UA Auto SS [place].plasma/Lithiu m.RBC (Bld) [Mass ratio] 0-3 /HPF Normal [...] PM) Invalid Interpretation Code 1.005 - 1.030 [facility] UA Auto SS UA Spec Desc Clean Catch (11/27/22 6:30 PM) Normal [facility] UA Auto SS Urobilinogen Qn (U) [id number] {[place]y'U}/dL Normal 0.0 - 1.0 EU/dL [facility] UA Auto SS WBC Auto Ql (U) 1+ *ABN* (11/27/22 6:30 PM) Invalid Interpretation Code Negative [facility] UA Auto SS WBC LM.HPF (Urine sed) [#/Area] 6-15 /HPF Invalid Interpretation Code 0-5/HPF [facility] UA Auto SS LIPID PROFILEon 10-11-2022 CHOL-HDL RATIO NORM SEE BELOW Normal [facility] Comment on above: Result Comment: 3.3 - 4.4 LOW RISK 4.4 - 7.1 AVERAGE RISK 7.1 - 11.0 MODERATE RISK >11.0 HIGH RISK Performed By: #### C MP, LIPID #### [facility] [address] [place] [address] Dr. Rufina Ramirez Cholesterol [Mass/Vol] 122 mg/dL Normal <=200 [facility] Comment on above: Performed By: #### C MP, LIPID #### [facility] [address] [place] [address] Dr. Rufina Ramirez Cholesterol in HDL [Mass/Vol] 42 mg/dL Normal 40-60 [facility] Comment on above: Performed By: #### C MP, LIPID #### [facility] [address] [place] [address] [address] Rufina Ramirez Cholesterol in LDL [Mass/Vol] 70.2 mg/dL Normal [facility] Comment on above: Performed By: #### C MP, LIPID #### [facility] [address] [place] [address] Dr. Rufina Ramirez Cholesterol.total/Cho lesterol in HDL [Mass ratio] 2.9 {ratio} Normal [facility] Comment on above: Performed By: #### C MP, LIPID #### [facility] [address] [place] [address] Dr. Rufina Ramirez HDL NORMAL > or = 60 mg/dl - LOW CARDIOVASCULAR RISK <40 mg/dl - HIGH CARDIOVASCULAR RISK Normal [facility] Comment on above: Performed By: #### C MP, LIPID #### [facility] [address] [place] [address] [address] Rufina Ramirez LDL CALC NORMAL SEE BELOW Normal [facility] Comment on above: Result Comment: <100 mg/dl OPTIMAL 100 - 129 mg/dl NEAR OR ABOVE OPTIMAL 130 - 159 mg/dl BORDERLINE HIGH 160 - 189 mg/dl HIGH >190 mg/dl VERY HIGH Performed By: #### C MP, LIPID #### [facility] [address] [place] [address] [address] Rufina Ramirez Triglyceride [Mass/Vol] 49 mg/dL Normal <=150 [facility] Comment on above: Performed By: #### C MP, LIPID #### [facility] [address] [place] [address] [address] Rufina Ramirez VLDL CALC 9.8 mg/dL Normal [facility] Comment on above: Performed By: #### C MP, LIPID #### [facility] [address] [place] [address] [address] Rufina Ramirez PROF 14(COMP METB)on 023 Albumin [Mass/Vol] 3.3 g/dL Critically low 3.4-5.0 Th [facility] Comment on above: Performed By: #### C MP, LIPID #### [facility] [address] [place] [address] [address] Rufina Ramirez Albumin/Globulin [Mass ratio] 0.9 {ratio} Normal [facility] Comment on above: Performed By: #### C MP, LIPID #### [facility] [address] [place] [address] [address] Rufina Ramirez ALP [Catalytic activity/Vol] 71 U/L Normal 46-116 [facility] Comment on above: Performed By: #### C MP, LIPID #### [facility] [address] [place] [address] [address] Rufina Ramirez ALT [Catalytic activity/Vol] 17 U/L Normal 16-63 [facility] Comment on above: Performed By: #### C MP, LIPID #### [facility] [address] [place] [address] [address] Rufina Ramirez Anion gap [Moles/Vol] 10.5 mmol/L Normal [facility] Comment on above: Performed By: #### C MP, LIPID #### [facility] [address] [place] [address] [address] Rufina Ramirez AST [Catalytic activity/Vol] 16 U/L Normal 15-37 [facility] Comment on above: Performed By: #### C MP, LIPID #### [facility] [address] [place] [address] [address] Rufina Ramirez Bilirubin [Mass/Vol] 0.8 mg/dL Normal 0.2-1.0 [facility] Comment on above: Performed By: #### C MP, LIPID #### [facility] [address] [place] [address] Dr. Rufina Ramirez Calcium [Mass/Vol] 8.8 mg/dL Normal 8.5-10.1 [facility] Comment on above: Performed By: #### C MP, LIPID #### [facility] [address] [place] [address] [address] Rufina Ramirez Chloride [Moles/Vol] 104 mmol/L Normal 98-107 [facility] Comment on above: Performed By: #### C MP, LIPID #### [facility] [address] [place] [address] Dr. Rufina Ramirez CO2 [Moles/Vol] 30.7 mmol/L Normal 21.0-32.0 [facility] Comment on above: Performed By: #### C MP, LIPID #### [facility] [address] [place] [address] [address] Rufina Ramirez Creatinine [Mass/Vol] 0.93 mg/dL Normal 0.70-1.30 [facility] Comment on above: Performed By: #### C MP, LIPID #### [facility] [address] [place] [address] Dr. Rufina Ramirez EGFR-AF SERBIAN >60 Normal >=60 [facility] Comment on above: Performed By: #### C MP, LIPID #### [facility] [address] [place] [address] [address] Rufina Ramirez EGFR-NON AF SERBIAN >60 Normal >=60 [facility] Comment on above: Performed By: #### C MP, LIPID #### [facility] [address] [place] [address] [address] Rufina Ramirez Globulin (S) [Mass/Vol] 3.6 g/dL Normal [facility] Comment on above: Performed By: #### C MP, LIPID #### [facility] [address] [place] [address] [address] Rufina Ramirez Glucose [Mass/Vol] 95 mg/dL Normal 74-106 [facility] Comment on above: Performed By: #### C MP, LIPID #### [facility] [address] [place] [address] Dr. Rufina Ramirez Potassium [Moles/Vol] 4.2 mmol/L Normal 3.5-5.1 [facility] Comment on above: Performed By: #### C MP, LIPID #### [facility] [address] [place] [address] [address] Rufina Ramirez Protein [Mass/Vol] 6.9 g/dL Normal 6.4-8.2 [facility] Comment on above: Performed By: #### C MP, LIPID #### [facility] [address] [place] [address] Dr. Rufina Ramirez Sodium [Moles/Vol] 141 mmol/L Normal 136-145 [facility] Comment on above: Performed By: #### C MP, LIPID #### [facility] [address] [place] [address] [address] Rufina Ramirez Urea nitrogen [Mass/Vol] 16.0 mg/dL Normal 7.0-18.0 [facility] Comment on above: Performed By: #### C MP, LIPID #### [facility] [address] [place] [address] [address] Rufina Ramirez Urea nitrogen/Creatinine [Mass ratio] 17.2 mg/mg Normal [facility] Comment on above: Performed By: #### C MP, LIPID #### [facility] [address] [place] [address] [address] Rufina Ramirez CBC AUTO DIFFon 06-26-2022 BASO # 0.0 103/ul Normal 0.0-0.1 [facility] Comment on above: Performed By: #### C BC #### [facility] [address] [address] [address] Rufina Ramirez Basophils/100 WBC (Bld) 0.4 % Normal 0.2-2.0 [facility] Comment on above: Performed By: #### C BC #### [facility] [address] [place] [address] Dr. Rufina Ramirez EO # 0.0 103/ul Normal 0.0-0.7 [facility] Comment on above: Performed By: #### C BC #### [facility] [address] [place] [address] Dr. Rufina Ramirez Eosinophils/100 WBC (Bld) 0.4 % Critically low 0.9-7.0 [facility] Comment on above: Performed By: #### C BC #### [facility] [address] [place] [address] Dr. Rufina Ramirez Erythrocyte distribution width (RBC) [Ratio] 13.2 % Normal 11.0-15.0 [facility] Comment on above: Performed By: #### C BC #### [facility] [address] [place] [address] Dr. Rufina Ramirez Hematocrit (Bld) [Volume fraction] 39.3 % Critically low 42.0-54.0 [facility] Comment on above: Performed By: #### C BC #### [facility] [address] [place] [address] Dr. Rufina Ramirez Hemoglobin (Bld) [Mass/Vol] 13.7 g/dL Critically low 14.0-18.0 [facility] Comment on above: Performed By: #### C BC #### [facility] [address] [place] [address] Dr. Rufina Ramirez IG # 0.01 10e3/ul Normal 0.00-0.03 [facility] Comment on above: Performed By: #### C BC #### [facility] [address] [place] [address] Dr. Rufina Ramirez IG % 0.2 % Normal 0.0-0.5 [facility] Comment on above: Performed By: #### C BC #### [facility] [address] [place] [address] Dr. Rufina Ramirez LYMPH # 1.8 103/ul Normal 1.2-3.8 [facility] Comment on above: Performed By: #### C BC #### [facility] [address] [place] [address] Dr. Rufina Ramirez Lymphocytes/100 WBC (Bld) 31.6 % Normal 20.5-60.0 [facility] Comment on above: Performed By: #### C BC #### [facility] [address] [place] [address] Dr. Rufina Ramirez MANUAL DIFF REQ NO Normal [facility] Comment on above: Performed By: #### C BC #### [facility] [address] [place] [address] Dr. Rufina Ramirez MCH (RBC) [Entitic mass] 32.9 pg Normal 25.9-34.0 [facility] Comment on above: Performed By: #### C BC #### [facility] [address] [place] [address] Dr. Rufina Ramirez MCHC (RBC) [Mass/Vol] 34.9 g/dL Normal 29.9-35.2 [facility] Comment on above: Performed By: #### C BC #### [facility] [address] [place] [address] Dr. Rufina Ramirez MCV (RBC) [Entitic vol] 94.5 fL Critically high 80.0-94.0 [facility] Comment on above: Performed By: #### C BC #### [facility] [address] [place] [address] Dr. Rufina Ramirez MONO # 0.5 103/ul Normal 0.3-0.8 [facility] Comment on above: Performed By: #### C BC #### [facility] [address] [address] [address] Rufina Ramirez Monocytes/100 WBC (Bld) 8.5 % Normal 1.7-12.0 [facility] Comment on above: Performed By: #### C BC #### [facility] [address] [address] [address] Rufina Ramirez NEUT # 3.3 103/ul Normal 1.4-6.5 [facility] Comment on above: Performed By: #### C BC #### [facility] [address] [address] [address] Rufina Ramirez Neutrophils/100 WBC (Bld) 58.9 % Normal 43.0-75.0 [facility] Comment on above: Performed By: #### C BC #### [facility] [address] [place] [address] Dr. Rufina Ramirez Platelet mean volume (Bld) [Entitic vol] 12.1 fL Normal 9.5-13.5 [facility] Comment on above: Performed By: #### C BC #### [facility] [address] [place] [address] Dr. Rufina Ramirez PLT 109 103/ul Critically low 150-450 [facility] Comment on above: Performed By: #### C BC #### [facility] [address] [place] [address] Dr. Rufina Ramirez RBC 4.16 106/ul Critically low 4.70-6.10 [facility] Comment on above: Performed By: #### C BC #### [facility] [address] [place] [address] Dr. Rufina Ramirez WBC 5.6 103/ul Normal 4.0-11.0 [facility] Comment on above: Performed By: #### C BC #### [facility] [address] [place] [address] Dr. Rufina Ramirez POINT OF CARE GLUCOSEon 05-31 Glucose [Mass/Vol] 97 mg/dL Normal 74-106 [facility] Comment on above: Performed By: #### P OCGLUC #### [facility] [address] [address] [address] Rufina Rmairez PROF CHEM 8 (BAS METB)on Anion gap [Moles/Vol] 11.2 mmol/L Normal Th [facility] Comment on above: Performed By: #### B MP #### [facility] [address] [place] [address] Dr. Rufina Ramirez Calcium [Mass/Vol] 8.9 mg/dL Normal 8.5-10.1 [facility] Comment on above: Performed By: #### B MP #### [facility] [address] [address] [address] Rufina Ramirez Chloride [Moles/Vol] 103 mmol/L Normal 98-107 [facility] Comment on above: Performed By: #### B MP #### [facility] [address] [place] [address] Dr. Rufina Ramirez CO2 [Moles/Vol] 27.2 mmol/L Normal 21.0-32.0 [facility] Comment on above: Performed By: #### B MP #### [facility] [address] [place] [address] Dr. Rufina Ramirez Creatinine [Mass/Vol] 0.81 mg/dL Normal 0.70-1.30 [facility] Comment on above: Performed By: #### B MP #### [facility] [address] [place] [address] Dr. Rufina Ramirez EGFR-AF SERBIAN >60 Normal >=60 [facility] Comment on above: Performed By: #### B MP #### [facility] [address] [place] [address] Dr. Rufina Ramirez EGFR-NON AF SERBIAN >60 Normal >=60 [facility] Comment on above: Performed By: #### B MP #### [facility] [address] [place] [address] Dr. Rufina Ramirez Glucose [Mass/Vol] 95 mg/dL Normal 74-106 [facility] Comment on above: Performed By: #### B MP #### [facility] [address] [place] [address] Dr. Rufina Ramirez Potassium [Moles/Vol] 4.4 mmol/L Normal 3.5-5.1 [facility] Comment on above: Performed By: #### B MP #### [facility] [address] [address] [address] Rufina Ramirez Sodium [Moles/Vol] 137 mmol/L Normal 136-145 [facility] Comment on above: Performed By: #### B MP #### [facility] [address] [address] [address] Rufina Ramirez Urea nitrogen [Mass/Vol] 17.0 mg/dL Normal 7.0-18.0 [facility] Comment on above: Performed By: #### B MP #### [facility] [address] [address] [address] Rufina Ramirez Urea nitrogen/Creatinine [Mass ratio] 21.0 mg/mg Normal [facility] Comment on above: Performed By: #### B MP #### [facility] [address] [address] [address] Rufina Ramirez CHEMISTRYOrdered By: SYSTEM SYSTEM on 05-15-2022 Troponin I.cardiac [Mass/Vol] 5.10 pg/mL Low 15.90 - 38.40 pg/mL [facility] Remisol Anion gap [Moles/Vol] 14 mmol/L Normal [...] 97.5 fL Normal 80.0 - 100.0 fL [facility] HemeAutoSS Morphology Mike (Bld) [Interp] Normal (08/30/21 6:02 AM) Normal [facility] HemeManSS Platelet mean volume (Bld) [Entitic vol] 11.5 fL High 6.4 - 10.8 fL [facility] HemeAutoSS Platelets (Bld) [#/Vol] 117.0 E9/L Low 150.0 - 500.0 E9/L FT HemeAutoSS Platelets Large LM Ql (Bld) Present (08/30/21 6:02 AM) Normal [facility] HemeManSS RBC (Bld) [#/Vol] 4.2 E12/L Low 4.3 - 5.9 E12/L [facility] HemeAutoSS WBC corrected for nucl RBC Auto (Bld) [#/Vol] 6.7 E9/L Normal 4.0 - 11.0 E9/L [facility] HemeAutoSS Reference Laboratory Testing Ordered By: Generated DomainUser on 08-30-2021 Cortisol [Mass/Vol] 1.9 ug/dL Invalid Interpretation Code [facility] SendOutsSS Comment on above: Result Comment: Antelmo isol AM 6.2 - 19.4 Cortisol PM 2.3 - 11.9 Performed at: [facility] [id number] PhD Sachin Garcia PSA ScreeningOrdered By: Fely Arteaga on 03-05-2021 [employer] Phone: Comprehensive Metabolic Pane lOrdered By: Doug Arteaga on 02-16-2021 Albumin [Mass/Vol] 3.8 g/dL 3.5 - 5.2 g/dL [employer] Phone: Albumin/Globulin Ratio NOT REPORTED [employer] Phone: ALP (Bld) [Catalytic activity/Vol] 70 U/L 40 - 129 U/L [employer] Phone: ALT [Catalytic activity/Vol] 12 U/L 5 - 41 U/L [employer] Phone: Anion gap [Moles/Vol] 8 mmol/L Low 9 - 17 mmol/L [employer] Phone: AST [Catalytic activity/Vol] 16 U/L <40 [employer] Phone: Bilirubin [Mass/Vol] 0.61 mg/dL 0.30 - 1.20 mg/dL [employer] Phone: Calcium [Mass/Vol] 8.8 mg/dL 8.6 - 10. 4 mg/dL [employer] Phone: Chloride [Moles/Vol] 105 mmol/L 98 - 10 7 mmol/L [employer] Phone: CO2 [Moles/Vol] 27 mmol/L 20 - 31 mmol/L [employer] Phone: Creatinine [Mass/Vol] 0.84 mg/dL 0.70 - 1.20 mg/dL [employer] Phone: Free PSA/Total PSA [Mass fraction] 6.6 g/dL 6.4 - 8.3 g/dL [employer] Phone: GFR >60 >60 mL/min [employer] Phone: GFR Non- >60 >60 mL/min [employer] Phone: GFR/1.73 sq M.predicted MDRD (S/P/Bld) [Vol rate/Area] [employer] Phone: Comment on above: Average GFR for 60-6 9 years old: 85 mL/min/1.73sq m Chronic Kidney Disease: <60 mL/min/1.73sq m Kidney failure: <15 mL/min/1.73sq m eGFR calculated using average adult body mass. Additional eGFR calculator available at: http://www.Burpple.Riskified/multiple_crcl_2012.htm GFR/1.73 sq M.predicted MDRD (S/P/Bld) [Vol rate/Area] NOT REPORTED [employer] Phone: Glucose [Mass/Vol] 86 mg/dL 70 - 99 mg/dL [employer] Phone: Interpretation and review of laboratory results Abnormal [employer] Phone: Potassium [Moles/Vol] 3.9 mmol/L 3.7 - 5.3 mmol/L [employer] Phone: Sodium [Moles/Vol] 140 mmol/L 135 - 144 mmol/L [employer] Phone: Urea nitrogen (BldV) [Mass/Vol] 14 mg/dL 8 - 23 mg/dL [employer] Phone: Urea nitrogen/Creatinine (Bld) [Mass ratio] 17 [employer] Phone: Lipid PanelOrdered By: Doug Arteaga on 02-16-2021 Cholesterol [Mass/Vol] 125 mg/dL <200 [employer] Phone: Comment on above: Cholesterol Guidelines: <200 Desirable 200-240 Borderline >240 Undesirable Cholesterol in HDL [Mass/Vol] 40 mg/dL Low >40 [employer] Phone: Comment on above: HDL Guidelines: <40 Undesirable 40-59 Borderline >59 Desirable Cholesterol in LDL [Mass/Vol] 73 mg/dL 0 - 130 mg/dL [employer] Phone: Comment on above: LDL Guidelines: <100 Desirable 100-129 Near to/above Desirable 130-159 Borderline >159 Undesirable Direct (measured) LDL and calculated LDL are not interchangeable tests. Cholesterol in VLDL [Mass/Vol] NOT REPORTED 1 - 30 mg/dL [employer] Phone: Cholesterol.total/Cho lesterol in HDL [Mass ratio] 3.1 {ratio} <5 [employer] Phone: Interpretation and review of laboratory results Abnormal [employer] Phone: Triglyceride [Mass/Vol] 60 mg/dL <150 [employer] Phone: Comment on above: Triglyceride Guidelines: <150 Desirable 150-199 Borderline 200-499 High >499 Very high Based on AHA Guidelines for fasting triglyceride, February 2012. [employer] Phone: No Panel InformationOrdered By: Doug Arteaga on 02-16-2021 [employer] Phone: Patient Fasting?Ordered By: Doug Arteaga on 02-16-2021 Patient Fasting? yes [employer] Work Phone: [employer] Phone: TSH without ReflexOrdered By : Doug Arteaga on 02-16-2021 TSH Qn 1.60 m[IU]/L [employer] Phone: CBC Auto Differentialon Basophils (Bld) [#/Vol] 0.00 10*3/uL [place] Basophils/100 WBC (Bld) 0 % 0 - 2 % [place] Differential Type YES [place] Eosinophils (Bld) [#/Vol] 0.10 10*3/uL [place] Eosinophils/100 WBC (Bld) 1 % 0 - 5 % [place] Erythrocyte distribution width (RBC) [Ratio] 14.2 % 12.1 - 15.2 % [place] Hematocrit (Bld) [Volume fraction] 42.4 % 41 - 53 % [place] Hemoglobin (Bld) [Mass/Vol] 14.4 g/dL 13.5 - 17.5 g/dL [place] Interpretation and review of laboratory results Abnormal [place] Lymphocytes (Bld) [#/Vol] 3.20 10*3/uL [place] Lymphocytes/100 WBC (Bld) 42 % 13 - 44 % [place] MCH (RBC) [Entitic mass] 34.1 pg High 26 - 34 pg [place] MCHC (RBC) [Mass/Vol] 34.0 g/dL 31 - 37 g/dL [place] MCV (RBC) [Entitic vol] 100.3 fL High 80 - 100 fL [place] Monocytes (Bld) [#/Vol] 0.60 10*3/uL [place] Monocytes/100 WBC (Bld) 8 % 5 - 9 % [place] Platelet mean volume (Bld) [Entitic vol] NOT REPORTED 6 - 12 fL [place] Platelets (Bld) [#/Vol] NOT REPORTED [place] Platelets (Bld) [#/Vol] 123 10*3/uL Low [place] RBC (Bld) [#/Vol] 4.23 10*6/uL Low 4.5 - 5.9 m/uL [place] RBC morphology finding Nom (Bld) NOT REPORTED [place] Segmented neutrophils/100 WBC (Bld) 49 % 39 - 75 % [place] Segs Absolute 3.70 [place] WBC (Bld) [#/Vol] NOT REPORTED per 100 WBC [place] WBC (Bld) [#/Vol] 7.7 10*3/uL [place] WBC Morphology NOT REPORTED [place] CTA HEAD W WO CONTRASTon 1. No acute intracranial findings. 2. Unremarkable intracranial CT angiograms [place], [place] Incoming Radiant Results From [employer] - 06/02/2020 3:26 PM EST EXAMINATION: CTA [...] intracranial findings. 2. Unremarkable intracranial CT angiograms [facility] [place], [place] EXAMINATION: CTA HEAD W WO CONTRAST [...] areas of abnormal intra-axial or extra-axial enhancement. [place] Comprehensive Metabolic Pane herminio 06-02-2020 Albumin [Mass/Vol] 4.3 g/dL 3.5 - 5.2 g/dL [place] Albumin/Globulin [Mass ratio] NOT REPORTED [place] ALP [Catalytic activity/Vol] 74 U/L 40 - 129 U/L [place] ALT [Catalytic activity/Vol] 13 U/L 5 - 41 U/L [place] Anion gap [Moles/Vol] 5 mmol/L Low 9 - 17 mmol/L [place] AST [Catalytic activity/Vol] 18 U/L <40 [place] Bilirubin Ql (U) 0.87 mg/dL 0.3 - 1.2 mg/dL [place] Bun/Cre Ratio 17 [place] Calcium [Mass/Vol] 9.1 mg/dL 8.6 - 10. 4 mg/dL [place] Chloride [Moles/Vol] 102 mmol/L 98 - 10 7 mmol/L [place] CO2 [Moles/Vol] 30 mmol/L 20 - 31 mmol/L [place] Creatinine [Mass/Vol] 0.76 mg/dL 0.7 - 1.2 mg/dL [place] GFR >60 >60 mL/min [place] GFR Non- >60 >60 mL/min [place] GFR/1.73 sq M predicted among non-blacks MDRD (S/P/Bld) [Vol rate/Area] [place] Comment on above: Average GFR for 60-6 9 years old: 85 mL/min/1.73sq m Chronic Kidney Disease: <60 mL/min/1.73sq m Kidney failure: <15 mL/min/1.73sq m eGFR calculated using average adult body mass. Additional eGFR calculator available at: http://www.DesignLine/multiple_crcl_2011.htm GFR/1.73 sq M predicted among non-blacks MDRD (S/P/Bld) [Vol rate/Area] NOT REPORTED [place] Glucose [Mass/Vol] 100 mg/dL High 70 - 99 mg/dL [place] Interpretation and review of laboratory results Abnormal [place] Potassium [Moles/Vol] 4.1 mmol/L 3.7 - 5.3 mmol/L [place] Protein [Mass/Vol] 6.7 g/dL 6.4 - 8.3 g/dL [place] Sodium [Moles/Vol] 137 mmol/L 135 - 144 mmol/L [place] Urea nitrogen [Mass/Vol] 13 mg/dL 8 - 23 mg/dL [place] Glucose, Whole Bloodon 06-02 Glucose [Mass/Vol] 83 mg/dL 65 - 99 mg/dL [place] Glucose [Mass/Vol] 65 mg/dL 65 - 99 mg/dL [place] Otheron 06-02-2020 Immature granulocytes (Bld) [#/Vol] NOT REPORTED [place] Hematologyon 01-19-2020 Basophils (Bld) [#/Vol] 0.00 10*3/uL [place] Basophils/100 WBC (Bld) 0 % 0 - 2 % [place] Eosinophils (Bld) [#/Vol] 0.10 10*3/uL [place] Eosinophils/100 WBC (Bld) 1 % 0 - 5 % [place] Hematocrit (Bld) [Volume fraction] 43.1 % 41 - 53 % [place] Hemoglobin (Bld) [Mass/Vol] 14.5 g/dL 13.5 - 17.5 g/dL [place] Lymphocytes (Bld) [#/Vol] 2.40 10*3/uL [place] Lymphocytes/100 WBC (Bld) 30 % 13 - 44 % [place] MCH (RBC) [Entitic mass] 33.2 pg 26 - 34 pg [place] MCV (RBC) [Entitic vol] 98.7 fL 80 - 100 fL [place] Monocytes (Bld) [#/Vol] 0.60 10*3/uL [place] Monocytes/100 WBC (Bld) 8 % 5 - 9 % [place] Platelets (Bld) [#/Vol] NOT REPORTED [place] Platelets (Bld) [#/Vol] 114 10*3/uL Low [place] RBC (Bld) [#/Vol] 4.37 10*6/uL Low 4.5 - 5.9 m/uL [place] RBC morphology finding Nom (Bld) NOT REPORTED [place] WBC (Bld) [#/Vol] NOT REPORTED per 100 WBC [place] WBC (Bld) [#/Vol] 8.0 10*3/uL [place] Metabolic Panelon 01-19-2020 Anion gap [Moles/Vol] 9 mmol/L 9 - 17 mmol/L [place] Calcium [Mass/Vol] 9.9 mg/dL 8.6 - 10. 4 mg/dL [place] Chloride [Moles/Vol] 103 mmol/L 98 - 10 7 mmol/L [place] CO2 [Moles/Vol] 22 mmol/L 20 - 31 mmol/L [place] Creatinine [Mass/Vol] 0.9 mg/dL 0.7 - 1.2 mg/dL [place] GFR/1.73 sq M predicted among non-blacks MDRD (S/P/Bld) [Vol rate/Area] [place] Comment on above: Average GFR for 60-6 9 years old: 85 mL/min/1.73sq m Chronic Kidney Disease: <60 mL/min/1.73sq m Kidney failure: <15 mL/min/1.73sq m eGFR calculated using average adult body mass. Additional eGFR calculator available at: http://www.Burpple.Riskified/multiple_crcl_2012.htm GFR/1.73 sq M predicted among non-blacks MDRD (S/P/Bld) [Vol rate/Area] NOT REPORTED [place] Glucose [Mass/Vol] 98 mg/dL 70 - 99 mg/dL [place] Potassium [Moles/Vol] 4.3 mmol/L 3.7 - 5.3 mmol/L [place] Sodium [Moles/Vol] 134 mmol/L Low 135 - 144 mmol/L [place] Urea nitrogen [Mass/Vol] 13 mg/dL 8 - 23 mg/dL [place] Otheron 01-19-2020 EXAM: CT HEAD WO [...] SOFT TISSUES: Unremarkable. Moderate intracranial carotid atherosclerosis. [place] No CT evidence of acute intracranial abnormality. [place], [place] Incoming Radiant Results From [employer] - 01/19/2020 4:15 PM EDT EXAM: CT [...] No CT evidence of acute intracranial abnormality. [place] Bun/Cre Ratio 14 [place] GFR >60 >60 mL/min [place] GFR Non- >60 >60 mL/min [place] Interpretation and review of laboratory results Abnormal [place] Differential Type YES [place] Erythrocyte distribution width (RBC) [Ratio] 13.4 % 12.1 - 15.2 % [place] Immature granulocytes (Bld) [#/Vol] NOT REPORTED [place] Interpretation and review of laboratory results Abnormal [place] MCHC (RBC) [Mass/Vol] 33.7 g/dL 31 - 37 g/dL [place] Platelet mean volume (Bld) [Entitic vol] NOT REPORTED 6 - 12 fL [place] Segmented neutrophils/100 WBC (Bld) 61 % 39 - 75 % [place] Segs Absolute 4.90 [place] WBC Morphology NOT REPORTED [place] Brain Natriuretic Peptideon 01-14-2020 Natriuretic peptide B (Bld) [Mass/Vol] Pro-BNP Reference Range: [place] Comment on above: Rule Out: <300 Horn Zone: Age <50 300-450 Age 50-75 300-900 Age >75 300-1800 Usually represents mild to moderate HF but other cardiopulmonary causes cannot be ruled out. Rule In: Age <50 >450 Age 50-75 >900 Age >75 >1800 Natriuretic peptide B (Bld) [Mass/Vol] 117 pg/mL <300 [place] Comment on above: Pro-BNP results jackelin ot be compared to BNP results. CBC Auto Differentialon 12-28 Basophils (Bld) [#/Vol] 0.00 10*3/uL [place] Basophils/100 WBC (Bld) 1 % 0 - 2 % [place] Differential Type YES [place] Eosinophils (Bld) [#/Vol] 0.00 10*3/uL [place] Eosinophils/100 WBC (Bld) 0 % 0 - 5 % [place] Erythrocyte distribution width (RBC) [Ratio] 13.8 % 12.1 - 15.2 % [place] Hematocrit (Bld) [Volume fraction] 44.5 % 41 - 53 % [place] Hemoglobin (Bld) [Mass/Vol] 15.0 g/dL 13.5 - 17.5 g/dL [place] Interpretation and review of laboratory results Abnormal [place] Lymphocytes (Bld) [#/Vol] 1.90 10*3/uL [place] Lymphocytes/100 WBC (Bld) 26 % 13 - 44 % [place] MCH (RBC) [Entitic mass] 33.3 pg 26 - 34 pg [place] MCHC (RBC) [Mass/Vol] 33.6 g/dL 31 - 37 g/dL [place] MCV (RBC) [Entitic vol] 99.0 fL 80 - 100 fL [place] Monocytes (Bld) [#/Vol] 0.40 10*3/uL [place] Monocytes/100 WBC (Bld) 6 % 5 - 9 % [place] Platelet mean volume (Bld) [Entitic vol] NOT REPORTED 6 - 12 fL [place] Platelets (Bld) [#/Vol] 135 10*3/uL Low [place] Platelets (Bld) [#/Vol] NOT REPORTED [place] RBC (Bld) [#/Vol] 4.49 10*6/uL Low 4.5 - 5.9 m/uL [place] RBC morphology finding Nom (Bld) NOT REPORTED [place] Segmented neutrophils/100 WBC (Bld) 67 % 39 - 75 % [place] Segs Absolute 4.80 [place] WBC (Bld) [#/Vol] NOT REPORTED per 100 WBC [place] WBC (Bld) [#/Vol] 7.2 10*3/uL [place] WBC Morphology NOT REPORTED [place] Comprehensive Metabolic Pane herminio 01-14-2020 Albumin [Mass/Vol] 4.2 g/dL 3.5 - 5.2 g/dL [place] Albumin/Globulin [Mass ratio] NOT REPORTED [place] ALP [Catalytic activity/Vol] 77 U/L 40 - 129 U/L [place] ALT [Catalytic activity/Vol] 13 U/L 5 - 41 U/L [place] Anion gap [Moles/Vol] 11 mmol/L 9 - 17 mmol/L [place] AST [Catalytic activity/Vol] 22 U/L <40 [place] Bilirubin Ql (U) 1.08 mg/dL 0.3 - 1.2 mg/dL [place] Bun/Cre Ratio 16 [place] Calcium [Mass/Vol] 10.1 mg/dL 8.6 - 10. 4 mg/dL [place] Chloride [Moles/Vol] 105 mmol/L 98 - 10 7 mmol/L [place] CO2 [Moles/Vol] 23 mmol/L 20 - 31 mmol/L [place] Creatinine [Mass/Vol] 0.8 mg/dL 0.7 - 1.2 mg/dL [place] GFR >60 >60 mL/min [place] GFR Non- >60 >60 mL/min [place] GFR/1.73 sq M predicted among non-blacks MDRD (S/P/Bld) [Vol rate/Area] NOT REPORTED [place] GFR/1.73 sq M predicted among non-blacks MDRD (S/P/Bld) [Vol rate/Area] [place] Comment on above: Average GFR for 60-6 9 years old: 85 mL/min/1.73sq m Chronic Kidney Disease: <60 mL/min/1.73sq m Kidney failure: <15 mL/min/1.73sq m eGFR calculated using average adult body mass. Additional eGFR calculator available at: http://www.Burpple.Riskified/multiple_crcl_2012.htm Glucose [Mass/Vol] 104 mg/dL High 70 - 99 mg/dL [place] Interpretation and review of laboratory results Abnormal [place] Potassium [Moles/Vol] 4.5 mmol/L 3.7 - 5.3 mmol/L [place] Protein [Mass/Vol] 7.3 g/dL 6.4 - 8.3 g/dL [place] Sodium [Moles/Vol] 139 mmol/L 135 - 144 mmol/L [place] Urea nitrogen [Mass/Vol] 13 mg/dL 8 - 23 mg/dL [place] D-Dimer, Quantitativeon 12-28 D-Dimer, Quant 0.45 [place] Comment on above: When combined with [...] 2.2 mg/dL 1.6 - 2 .6 mg/dL [place] Otheron 01-14-2020 Immature granulocytes (Bld) [#/Vol] NOT REPORTED 0 % [place] Troponinon 01-14-2020 Troponin I.cardiac [Mass/Vol] [place] Comment on above: Reference Range: <0.03 [...] diagnosis. Troponin T.cardiac [Mass/Vol] ug/L <0.03 ng/mL [place] Comment on above: Troponin T results c annot be compared to Troponin-I results. Troponin, High Sensitivity NOT REPORTED 0 - 22 ng/L [place] Troponin I.cardiac [Mass/Vol] [place] Comment on above: Reference Range: <0.03 [...] diagnosis. Troponin T.cardiac [Mass/Vol] ug/L <0.03 ng/mL [place] Comment on above: Troponin T results c annot be compared to Troponin-I results. Troponin, High Sensitivity NOT REPORTED 0 - 22 ng/L [place] XR CHEST PORTABLEon 01-14-20 20 Negative chest. [place], [place] Incoming Radiant Results From [employer] - 01/14/2020 3:26 PM EDT EXAM: XR CHEST PORTABLE HISTORY: Reason for exam:->palpitations tachycardia, 64-year-old male. COMPARISON: Chest 11/19/2019. TECHNIQUE: AP portable chest 1420 hours. FINDINGS: Heart size normal. Lungs clear. Bony thorax and upper abdomen normal. IMPRESSION: Negative chest. [place] EXAM: XR CHEST PORTABLE HISTORY: Reason for exam:->palpitations tachycardia, 64-year-old male. COMPARISON: Chest 11/19/2019. TECHNIQUE: AP portable chest 1420 hours. FINDINGS: Heart size normal. Lungs clear. Bony thorax and upper abdomen normal. [place] Lipid Panelon 12-03-2019 Cholesterol [Mass/Vol] 111 mg/dL <200 [place] Comment on above: Cholesterol Guidelines: <200 Desirable 200-240 Borderline >240 Undesirable Cholesterol in HDL [Mass/Vol] 38 mg/dL Low >40 [place] Comment on above: HDL Guidelines: <40 Undesirable 40-59 Borderline >59 Desirable Cholesterol in LDL [Mass/Vol] 60 mg/dL 0 - 130 mg/dL [place] Comment on above: LDL Guidelines: <100 Desirable 100-129 Near to/above Desirable 130-159 Borderline >159 Undesirable Direct (measured) LDL and calculated LDL are not interchangeable tests. Cholesterol in VLDL [Mass/Vol] NOT REPORTED 1 - 30 mg/dL [place] Cholesterol.total/Cho lesterol in HDL [Mass ratio] 2.9 {ratio} <5 [place] Interpretation and review of laboratory results Abnormal [place] Triglyceride [Mass/Vol] 64 mg/dL <150 [place] Comment on above: Triglyceride Guidelines: <150 Desirable 150-199 Borderline 200-499 High >499 Very high Based on AHA Guidelines for fasting triglyceride, February 2012. Patient Fasting?on 0 Patient Fasting? YES [place] APTTon 11-19-2019 aPTT Coag (Bld) [Time] 24.7 s [place] Comment on above: PTT Therapeutic Range: 61.7-88.4 Therapeutic range corresponds to plasma heparin levels of 0.3-0.7 U/mL. Brain Natriuretic Peptideon 11-19-2019 Natriuretic peptide B (Bld) [Mass/Vol] 78 pg/mL <300 [place] Comment on above: Pro-BNP results jackelin ot be compared to BNP results. Natriuretic peptide B (Bld) [Mass/Vol] Pro-BNP Reference Range: [place] Comment on above: Rule Out: <300 Horn Zone: Age <50 300-450 Age 50-75 300-900 Age >75 300-1800 Usually represents mild to moderate HF but other cardiopulmonary causes cannot be ruled out. Rule In: Age <50 >450 Age 50-75 >900 Age >75 >1800 CBC Auto Differentialon 10-29 Basophils (Bld) [#/Vol] 0.00 10*3/uL [place] Basophils/100 WBC (Bld) 1 % 0 - 2 % [place] Differential Type YES [place] Eosinophils (Bld) [#/Vol] 0.00 10*3/uL [place] Eosinophils/100 WBC (Bld) 1 % 0 - 5 % [place] Erythrocyte distribution width (RBC) [Ratio] 13.8 % 12.1 - 15.2 % [place] Hematocrit (Bld) [Volume fraction] 42.7 % 41 - 53 % [place] Hemoglobin (Bld) [Mass/Vol] 14.7 g/dL 13.5 - 17.5 g/dL [place] Interpretation and review of laboratory results Abnormal [place] Lymphocytes (Bld) [#/Vol] 2.40 10*3/uL [place] Lymphocytes/100 WBC (Bld) 33 % 13 - 44 % [place] MCH (RBC) [Entitic mass] 34.5 pg High 26 - 34 pg [place] MCHC (RBC) [Mass/Vol] 34.4 g/dL 31 - 37 g/dL [place] MCV (RBC) [Entitic vol] 100.3 fL High 80 - 100 fL [place] Monocytes (Bld) [#/Vol] 0.50 10*3/uL [place] Monocytes/100 WBC (Bld) 7 % 5 - 9 % [place] Platelet mean volume (Bld) [Entitic vol] NOT REPORTED 6 - 12 fL [place] Platelets (Bld) [#/Vol] NOT REPORTED [place] Platelets (Bld) [#/Vol] 112 10*3/uL [place] RBC (Bld) [#/Vol] 4.26 10*6/uL Low 4.5 - 5.9 m/uL [place] RBC morphology finding Nom (Bld) NOT REPORTED [place] Segmented neutrophils/100 WBC (Bld) 58 % 39 - 75 % [place] Segs Absolute 4.30 [place] WBC (Bld) [#/Vol] 7.3 10*3/uL [place] WBC (Bld) [#/Vol] NOT REPORTED per 100 WBC [place] WBC Morphology NOT REPORTED [place] Comprehensive Metabolic Pane l w/ Reflex to MGon 11-19-2019 Albumin [Mass/Vol] 4 g/dL 3.5 - 5.2 g/dL [place] Albumin/Globulin [Mass ratio] NOT REPORTED [place] ALP [Catalytic activity/Vol] 83 U/L 40 - 129 U/L [place] ALT [Catalytic activity/Vol] 15 U/L 5 - 41 U/L [place] Anion gap [Moles/Vol] 9 mmol/L 9 - 17 mmol/L [place] AST [Catalytic activity/Vol] 22 U/L <40 [place] Bilirubin Ql (U) 0.65 mg/dL 0.3 - 1.2 mg/dL [place] Bun/Cre Ratio 19 [place] Calcium [Mass/Vol] 9.8 mg/dL 8.6 - 10. 4 mg/dL [place] Chloride [Moles/Vol] 106 mmol/L 98 - 10 7 mmol/L [place] CO2 [Moles/Vol] 23 mmol/L 20 - 31 mmol/L [place] Creatinine [Mass/Vol] 0.81 mg/dL 0.7 - 1.2 mg/dL [place] GFR >60 >60 mL/min [place] GFR Non- >60 >60 mL/min [place] GFR/1.73 sq M predicted among non-blacks MDRD (S/P/Bld) [Vol rate/Area] NOT REPORTED [place] GFR/1.73 sq M predicted among non-blacks MDRD (S/P/Bld) [Vol rate/Area] [place] Comment on above: Average GFR for 60-6 9 years old: 85 mL/min/1.73sq m Chronic Kidney Disease: <60 mL/min/1.73sq m Kidney failure: <15 mL/min/1.73sq m eGFR calculated using average adult body mass. Additional eGFR calculator available at: http://www.DesignLine/multiple_crcl_2012.htm Glucose [Mass/Vol] 102 mg/dL High 70 - 99 mg/dL [place] Interpretation and review of laboratory results Abnormal [place] Potassium [Moles/Vol] 4.4 mmol/L 3.7 - 5.3 mmol/L [place] Protein [Mass/Vol] 7.3 g/dL 6.4 - 8.3 g/dL [place] Sodium [Moles/Vol] 138 mmol/L 135 - 144 mmol/L [place] Urea nitrogen [Mass/Vol] 15 mg/dL 8 - 23 mg/dL [place] D-Dimer, Quantitativeon 10-29 D-Dimer, Quant 0.40 [place] Comment on above: Elevated levels of [...] 11-19-2019 Immature granulocytes (Bld) [#/Vol] NOT REPORTED [place] Protime-INRon 11-19-2019 INR Coag (PPP) [Relative time] 1.0 {INR} [place] Comment on above: * THERAPY INDICATIONS * REFERENCE RANGES Pts not on anti-coagulants 1.0 - 1.5 INR Low risk pts on anti-coagulants 2.0 - 3.0 INR High risk pts on anti-coagulants 2.5 - 3.5 INR Prevention of atrial thrombo-embolism 3.0 - 4.5 INR PT Coag (PPP) [Time] 10.3 s [place] Troponinon 11-19-2019 Troponin I.cardiac [Mass/Vol] [place] Comment on above: Reference Range: <0.03 [...] diagnosis. Troponin T.cardiac [Mass/Vol] ug/L <0.03 ng/mL [place] Comment on above: Troponin T results c annot be compared to Troponin-I results. Troponin, High Sensitivity NOT REPORTED 0 - 22 ng/L [place] Troponin I.cardiac [Mass/Vol] [place] Comment on above: Reference Range: <0.03 [...] diagnosis. Troponin T.cardiac [Mass/Vol] ug/L <0.03 ng/mL [place] Comment on above: Troponin T results c annot be compared to Troponin-I results. Troponin, High Sensitivity NOT REPORTED 0 - 22 ng/L [place] XR CHEST PORTABLEon 11-19-19 20 CHEST [...] of posterolateral left sixth and seventh ribs. [place], [facility] Incoming Radiant Results From [facility] - 11/19/2019 4:21 PM EDT CHEST 3 [...] Unchanged chest with no acute pulmonary disease. [place] Unchanged chest with no acute pulmonary disease. [place] STRESS TEST REPORTon 019 Samantha Martinez MD - 05/02/2019 10:05 AM EST [facility] [address] [id number] CARDIAC STRESS TEST PATIENT NAME: NORY DSOUZA : 1955 MED REC NO: [id number] ROOM: ACCOUNT NO: [id number] ADMIT DATE: 05/01/2019 PROVIDER: Samantha Martinez DATE [...] MARTINEZ BRYAN/JESSICA_ALMAIT Doc#: Unknown CC: Doug Arteaga [place] Otheron 05-01-2019 Radiology exam is complete. No Radiologist dictation. Please follow up with ordering provider. [place] Basic Metabolic Panel w/ Ref pia to MG 04-04-2019 Anion gap [Moles/Vol] 13 mmol/L 9 - 17 mmol/L [place] Bun/Cre Ratio 13 [place] Calcium [Mass/Vol] 9.5 mg/dL 8.6 - 10. 4 mg/dL [place] Chloride [Moles/Vol] 103 mmol/L 98 - 10 7 mmol/L [place] CO2 [Moles/Vol] 22 mmol/L 20 - 31 mmol/L [place] Creatinine [Mass/Vol] 0.91 mg/dL 0.7 - 1.2 mg/dL [place] GFR >60 >60 mL/min [place] GFR Non- >60 >60 mL/min [place] GFR/1.73 sq M predicted among non-blacks MDRD (S/P/Bld) [Vol rate/Area] NOT REPORTED [place] GFR/1.73 sq M predicted among non-blacks MDRD (S/P/Bld) [Vol rate/Area] [place] Comment on above: Average GFR for 60-6 9 years old: 85 mL/min/1.73sq m Chronic Kidney Disease: <60 mL/min/1.73sq m Kidney failure: <15 mL/min/1.73sq m eGFR calculated using average adult body mass. Additional eGFR calculator available at: http://www.Burpple.com/multiple_crcl_2012.htm Glucose [Mass/Vol] 100 mg/dL High 70 - 99 mg/dL [place] Interpretation and review of laboratory results Abnormal [place] Potassium [Moles/Vol] 4.4 mmol/L 3.7 - 5.3 mmol/L [place] Sodium [Moles/Vol] 138 mmol/L 135 - 144 mmol/L [place] Urea nitrogen [Mass/Vol] 12 mg/dL 8 - 23 mg/dL [place] Brain Natriuretic Peptideon 04-04-2019 Natriuretic peptide B (Bld) [Mass/Vol] 188 pg/mL <300 [place] Comment on above: Pro-BNP results jackelin ot be compared to BNP results. Natriuretic peptide B (Bld) [Mass/Vol] Pro-BNP Reference Range: [place] Comment on above: Rule Out: <300 Horn Zone: Age <50 300-450 Age 50-75 300-900 Age >75 300-1800 Usually represents mild to moderate HF but other cardiopulmonary causes cannot be ruled out. Rule In: Age <50 >450 Age 50-75 >900 Age >75 >1800 CBC Auto Differentialon Basophils (Bld) [#/Vol] 0.00 10*3/uL [place] Basophils/100 WBC (Bld) 0 % 0 - 2 % [place] Differential Type YES [place] Eosinophils (Bld) [#/Vol] 0.00 10*3/uL [place] Eosinophils/100 WBC (Bld) 0 % 0 - 5 % [place] Erythrocyte distribution width (RBC) [Ratio] 14.1 % 12.1 - 15.2 % [place] Hematocrit (Bld) [Volume fraction] 43.4 % 41 - 53 % [place] Hemoglobin (Bld) [Mass/Vol] 14.6 g/dL 13.5 - 17.5 g/dL [place] Interpretation and review of laboratory results Abnormal [place] Lymphocytes (Bld) [#/Vol] 2.10 10*3/uL [place] Lymphocytes/100 WBC (Bld) 24 % 13 - 44 % [place] MCH (RBC) [Entitic mass] 33.9 pg 26 - 34 pg [place] MCHC (RBC) [Mass/Vol] 33.7 g/dL 31 - 37 g/dL [place] MCV (RBC) [Entitic vol] 100.5 fL High 80 - 100 fL [place] Monocytes (Bld) [#/Vol] 0.50 10*3/uL [place] Monocytes/100 WBC (Bld) 6 % 5 - 9 % [place] Platelet mean volume (Bld) [Entitic vol] NOT REPORTED 6 - 12 fL [place] Platelets (Bld) [#/Vol] 133 10*3/uL [place] Platelets (Bld) [#/Vol] NOT REPORTED [place] RBC (Bld) [#/Vol] 4.32 10*6/uL Low 4.5 - 5.9 m/uL [place] RBC morphology finding Nom (Bld) NOT REPORTED [place] Segmented neutrophils/100 WBC (Bld) 70 % 39 - 75 % [place] Segs Absolute 6.10 [place] WBC (Bld) [#/Vol] 8.8 10*3/uL [place] WBC (Bld) [#/Vol] NOT REPORTED per 100 WBC [place] WBC Morphology NOT REPORTED [place] Otheron 04-04-2019 Immature granulocytes (Bld) [#/Vol] NOT REPORTED 0 % [place] Troponinon 04-04-2019 Troponin I.cardiac [Mass/Vol] [place] Comment on above: Reference Range: <0.03 [...] diagnosis. Troponin T.cardiac [Mass/Vol] ug/L <0.03 ng/mL [place] Comment on above: Troponin T results c annot be compared to Troponin-I results. Troponin, High Sensitivity NOT REPORTED 0 - 22 ng/L [place] Troponin I.cardiac [Mass/Vol] [place] Comment on above: Reference Range: <0.03 [...] diagnosis. Troponin T.cardiac [Mass/Vol] ug/L <0.03 ng/mL [place] Comment on above: Troponin T results c annot be compared to Troponin-I results. Troponin, High Sensitivity NOT REPORTED 0 - 22 ng/L [place] Vital Signs Date Time Vital Sign Value Performing Clinician Facility 05-16-2024 12:23-0500 Hourly Rounding Adilenefo OFELICIAN[facility] 05-16-2024 12:23-0500 Promise to Return Mbanefo [facility] 05-16-2024 11:23-0500 Hourly Rounding Mbanefo [facility] 05-16-2024 11:23-0500 Promise to Return Mbanefo [facility]ANJOKW[facility] 05-16-2024 10:53-0500 Heart rate 77 /min Mbanefo [facility] 05-16-2024 10:53-0500 SaO2% (BldA) [Mass fraction] 96 % Mbanefo [facility] 05-16-2024 10:53-0500 Respiratory rate 20 /min Mbanefo [facility] 05-16-2024 10:52-0500 Body temperature 97.52 [degF] Mbanefo [facility] 05-16-2024 10:52-0500 Diastolic blood pressure 87 mm[Hg] Mbanefo [facility] 05-16-2024 10:52-0500 Mean blood pressure 102 mm[Hg] Mbanefo [facility] 05-16-2024 10:52-0500 Systolic blood pressure 134 mm[Hg] Mbanefo [facility] 05-16-2024 10:42-0500 Hourly Rounding Mbanefo [facility] 05-16-2024 10:42-0500 Promise to Return Mbanefo [facility] 05-16-2024 07:22-0500 Heart rate 72 /min Mbanefo [facility] 05-16-2024 07:22-0500 SaO2% (BldA) [Mass fraction] 95 % Mbanefo [facility] 05-16-2024 07:22-0500 Respiratory rate 20 /min Mbanefo [facility] 05-16-2024 07:21-0500 Body temperature 97.34 [degF] Mbanefo [facility] 05-16-2024 07:20-0500 Diastolic blood pressure 90 mm[Hg] Mbanefo [facility] 05-16-2024 07:20-0500 Mean blood pressure 111 mm[Hg] Mbanefo [facility] 05-16-2024 07:20-0500 Systolic blood pressure 154 mm[Hg] Mbanefo [facility] 05-16-2024 04:00-0500 Body temperature 97.7 [degF] Mbanefo [facility] 05-16-2024 04:00-0500 Diastolic blood pressure 70 mm[Hg] Mbanefo [facility] 05-16-2024 04:00-0500 Heart rate 91 /min Mbanefo [facility] 05-16-2024 04:00-0500 Respiratory rate 19 /min Mbanefo [facility] 05-16-2024 04:00-0500 SaO2% (BldA) [Mass fraction] 94 % Mbanefo [facility] 05-16-2024 04:00-0500 Systolic blood pressure 135 mm[Hg] Mbanefo [facility] 05-15-2024 23:16-0500 Heart rate 64 /min Mbanefo [facility] 05-15-2024 23:16-0500 Respiratory rate 18 /min Mbanefo [facility] 05-15-2024 23:15-0500 Blood Pressure Location Mbanefo [facility] 05-15-2024 23:15-0500 BP/Pulse Patient Position Mbanefo [facility] 05-15-2024 23:15-0500 Mean blood pressure 107 mm[Hg] Mbanefo [facility] 05-15-2024 23:15-0500 Body temperature 97.88 [degF] Mbanefo [facility] 05-15-2024 19:00-0500 Body temperature 98.06 [degF] Mbanefo [facility] 05-15-2024 16:56-0500 Mean blood pressure 88 mm[Hg] Mbanefo [facility] 05-15-2024 16:56-0500 Respiratory rate 16 /min Mbanefo [facility] 05-15-2024 16:00-0500 Mean blood pressure 97 mm[Hg] Mbanefo [facility] 05-15-2024 15:12-0500 gluc 79 mg/dL Mbanefo [facility] 05-15-2024 15:05-0500 gluc 79 mg/dL Mbanefo [facility] 10-17-2023 20:00-0400 Body height 170.2 cm [facility] [employer] 10-17-2023 20:00-0400 Body mass index (BMI) [Ratio] 36.65 kg/m2 [facility] [employer] 10-17-2023 20:00-0400 Body weight 106.14 kg Mwhz Schedule [facility] 04-21-2023 13:22-0500 Body temperature 98.06 [degF] Robson Cartwright [facility] 04-21-2023 13:22-0500 Diastolic blood pressure 74 mm[Hg] Robson Cartwright [facility] 04-21-2023 13:22-0500 Heart rate 68 /min Robson Cartwright [facility] 04-21-2023 13:22-0500 Respiratory rate 18 /min Robson Cartwright [facility] 04-21-2023 13:22-0500 SaO2% (BldA) [Mass fraction] 97 % Robson Cartwright [facility] 04-21-2023 13:22-0500 Systolic blood pressure 140 mm[Hg] Robson Cartwright [facility] 11-27-2022 19:00-0400 Diastolic blood pressure 78 mm[Hg] Grant Vazquez [facility] 11-27-2022 19:00-0400 Heart rate 62 /min Grant George [facility] 11-27-2022 19:00-0400 Mean blood pressure 92 mm[Hg] Grant George [facility] 11-27-2022 19:00-0400 Respiratory rate 18 /min Grant George [facility] 11-27-2022 19:00-0400 SaO2% (BldA) [Mass fraction] 98 % Grant George [facility] 11-27-2022 19:00-0400 Systolic blood pressure 120 mm[Hg] Grant George [facility] 11-27-2022 18:30-0400 Diastolic blood pressure 76 mm[Hg] Grant George [facility] 11-27-2022 18:30-0400 Heart rate 49 /min Grant George [facility] 11-27-2022 18:30-0400 Mean blood pressure 97 mm[Hg] Grant George [facility] 11-27-2022 18:30-0400 Respiratory rate 17 /min Grant George [facility] 11-27-2022 18:30-0400 SaO2% (BldA) [Mass fraction] 96 % Grant George [facility] 11-27-2022 18:30-0400 Systolic blood pressure 140 mm[Hg] Grant George [facility] 11-27-2022 18:00-0400 Diastolic blood pressure 93 mm[Hg] Grant George [facility] 11-27-2022 18:00-0400 Heart rate 60 /min Grant George [facility] 11-27-2022 18:00-0400 Mean blood pressure 101 mm[Hg] Grant George [facility] 11-27-2022 18:00-0400 SaO2% (BldA) [Mass fraction] 97 % Grant George [facility] 11-27-2022 18:00-0400 Systolic blood pressure 116 mm[Hg] Grant George [facility] 11-27-2022 17:30-0400 Heart rate 90 /min Grant George [facility] 11-27-2022 16:21-0400 Body temperature 97.52 [degF] Grant George [facility] 11-27-2022 16:21-0400 Heart rate 71 /min Grant George [facility] 11-27-2022 16:21-0400 Respiratory rate 16 /min Grant George [facility] 05-16-2022 00:16-0500 Diastolic blood pressure 95 mm[Hg] Alec Александр [facility] 05-16-2022 00:16-0500 Heart rate 84 /min Alec Александр [facility] 05-16-2022 00:16-0500 Systolic blood pressure 134 mm[Hg] Alec Александр [facility] 05-16-2022 00:15-0500 Diastolic blood pressure 97 mm[Hg] Alec Александр [facility] 05-16-2022 00:15-0500 Heart rate 84 /min Alec Александр [facility] 05-16-2022 00:15-0500 Mean blood pressure 109 mm[Hg] Alec Александр [facility] 05-16-2022 00:15-0500 Respiratory rate 11 /min Alec Александр [facility] 05-16-2022 00:15-0500 SaO2% (BldA) [Mass fraction] 95 % Alec Александр [facility] 05-16-2022 00:15-0500 Systolic blood pressure 134 mm[Hg] Alec Александр [facility] 05-15-2022 21:42-0500 Diastolic blood pressure 99 mm[Hg] Alec Александр [facility] 05-15-2022 21:42-0500 Heart rate 80 /min Alec Александр [facility] 05-15-2022 21:42-0500 Systolic blood pressure 130 mm[Hg] Alec Александр [facility] 05-15-2022 21:37-0500 Hourly Rounding Alec Fountain [facility] 05-15-2022 21:37-0500 Promise to Return Alecjose Fountain [facility] 05-15-2022 21:36-0500 Heart rate 78 /min Alec Александр [facility] 05-15-2022 21:36-0500 Mean blood pressure 109 mm[Hg] Alec Александр [facility] 05-15-2022 21:36-0500 Respiratory rate 28 /min Alec Александр [facility] 05-15-2022 21:36-0500 SaO2% (BldA) [Mass fraction] 94 % Alec Александр [facility] 05-15-2022 20:48-0500 Heart rate 84 /min Alec Александр [facility] 05-15-2022 20:48-0500 Respiratory rate 24 /min Alec Александр [facility] 05-15-2022 20:48-0500 SaO2% (BldA) [Mass fraction] 96 % Alec Александр [facility] 05-15-2022 20:30-0500 Mean blood pressure 99 mm[Hg] Alec Александр [facility] 05-15-2022 19:47-0500 Body temperature 97.7 [degF] Alec Александр [facility] 05-15-2022 19:47-0500 Heart rate 79 /min Alec Александр [facility] 05-15-2022 19:47-0500 Respiratory rate 19 /min Alec Fountain [facility] 01-03-2022 01:23-0400 Nursing Progress Note Reason Other: discharge instructions given. pt verbalized understanding. sister picking pt up Miguelinan Shira [facility] 01-02-2022 22:55-0400 Body temperature 98.78 [degF] Kaitylinn Dokken [facility] 01-02-2022 22:55-0400 Diastolic blood pressure 76 mm[Hg] Kaitylinn Dokken [facility] 01-02-2022 22:55-0400 Heart rate 79 /min Miguelinan Dokken [facility] 01-02-2022 22:55-0400 Respiratory rate 18 /min Kaitylinn Dokken [facility] 01-02-2022 22:55-0400 SaO2% (BldA) [Mass fraction] 97 % Miguelinan Dokken [facility] 01-02-2022 22:55-0400 Systolic blood pressure 128 mm[Hg] Miguelinan Dokken [facility] 09-01-2021 13:20-0400 Diastolic blood pressure 83 mm[Hg] Juan A SCHAEFER [facility] 09-01-2021 13:20-0400 Heart rate 73 /min Juan A SCHAEFER [facility] 09-01-2021 13:20-0400 Systolic blood pressure 132 mm[Hg] Juan A SCHAEFER [facility] 09-01-2021 12:00-0400 Blood Pressure Location Juan A SILVANO [facility] 09-01-2021 12:00-0400 Body temperature 97.7 [degF] Juan A WALLSSLIN [facility] 09-01-2021 12:00-0400 Hourly Rounding Juan A WALLSSLIN [facility] 09-01-2021 12:00-0400 Mean blood pressure 99 mm[Hg] Juan Aalex WALLSSLIN [facility] 09-01-2021 12:00-0400 SaO2% (BldA) [Mass fraction] 97 % Juan A WALLSSLIN [facility] 09-01-2021 11:00-0400 Promise to Return Juan Aalex TOLIN [facility] 09-01-2021 08:44-0400 Diastolic blood pressure 85 mm[Hg] Juan Aalex WALLSSLIN [facility] 09-01-2021 08:44-0400 Heart rate 61 /min Juan A WALLSSLIN [facility] 09-01-2021 08:44-0400 Systolic blood pressure 147 mm[Hg] Juan Aalex WALLSSLIN [facility] 09-01-2021 08:00-0400 Blood Pressure Location Juan Aalex WALLSSLIN [facility] 09-01-2021 08:00-0400 Mean blood pressure 106 mm[Hg] Juan Aalex WALLSSLIN [facility] 09-01-2021 08:00-0400 SaO2% (BldA) [Mass fraction] 99 % Juan A WALLSSLIN [facility] 08-31-2021 15:40-0400 Body temperature 97.52 [degF] Juan A WALLSSLIN [facility] 08-31-2021 15:40-0400 Heart rate 71 /min Juan Aalex WALLSSLIN [facility] 08-31-2021 15:40-0400 Mean blood pressure 96 mm[Hg] Juan Aalex WALLSSLIN [facility] 08-31-2021 15:40-0400 SaO2% (BldA) [Mass fraction] 99 % Juan Aalex [facility]ALLSSLIN [facility] 08-31-2021 14:00-0400 Heart rate 68 /min Juan Aalex [facility]ALLSSLIN [facility] 08-31-2021 12:38-0400 Heart rate 78 /min Juan Aalex WALLSSLIN [facility] 08-31-2021 12:38-0400 Mean blood pressure 103 mm[Hg] Juan Aalex WALLSSLIN [facility] 08-31-2021 12:38-0400 Respiratory rate 16 /min Juan Aalex WALLSSLIN [facility] 08-31-2021 07:44-0400 Respiratory rate 18 /min Juan Aalex WALLSSLIN [facility] 08-31-2021 03:05-0400 Respiratory rate 16 /min Juan Aalex WALLSSLIN [facility] 08-30-2021 16:25-0400 Blood Pressure Location Juan Aalex WALLSSLIN [facility] 08-30-2021 16:25-0400 BP/Pulse Patient Position Juan Aalex WALLSSLIN [facility] 08-30-2021 16:25-0400 Mean blood pressure 83 mm[Hg] Juan Aalex WALLSSLIN [facility] 08-30-2021 11:44-0400 BP/Pulse Patient Position Juan A SCHAEFER [facility] 08-30-2021 11:44-0400 Mean blood pressure 88 mm[Hg] Juan A SCHAEFER [facility] 08-30-2021 08:59-0400 BP/Pulse Patient Position Juan A SCHAEFER [facility] 08-30-2021 04:15-0400 Heart rate 86 /min Juan A SCHAEFER [facility] 08-30-2021 02:30-0400 Nursing Progress Note Reason Other: Resting on cart, resp even and non labored, skin pink warm and dry, Updated on POC, call light in reach. Juan A SCHAEFER [facility] 08-30-2021 02:30-0400 Respiratory rate 11 /min Juan A SCHAEFER [facility] 08-30-2021 01:27-0400 Heart rate 82 /min Juan A SCHAEFER [facility] 06-02-2020 15:20-0500 BP Diastolic 68 mm[Hg] [place] 06-02-2020 15:20-0500 BP Systolic 120 mm[Hg] [place] 06-02-2020 15:20-0500 Pulse (Heart Rate) 55 /min [facility], [place] 06-02-2020 15:20-0500 Pulse Oximetry 100 % [place] 06-02-2020 15:20-0500 Respiratory Rate 18 /min [place] 06-02-2020 13:10-0500 BMI (Body Mass Index) 32.93 kg/m2 [place] 06-02-2020 13:10-0500 Body Temperature 97.59 [degF] [place] 06-02-2020 13:10-0500 Body weight 92.53 kg [facility] [place] 01-19-2020 16:30-0400 Pulse (Heart Rate) 66 /min Hardeep Merino [facility], [place] 01-19-2020 16:30-0400 Pulse Oximetry 97 % [facility] [place] 01-19-2020 16:30-0400 Respiratory Rate 15 /min Hardeep Merino [facility], [place] 01-19-2020 15:23-0400 BMI (Body Mass Index) 30.47 kg/m2 [facility] [place] 01-19-2020 15:23-0400 Body Temperature 98.29 [degF] [facility], [place] 01-19-2020 15:23-0400 Body weight 85.64 kg Hardeep Merino [facility], [place] 01-19-2020 15:23-0400 BP Diastolic 83 mm[Hg] Hardeep Merino [facility], [place] 01-19-2020 15:23-0400 BP Systolic 143 mm[Hg] Hardeep Merino [facility], [place] 01-14-2020 16:51-0400 BP Diastolic 78 mm[Hg] [facility] 01-14-2020 16:51-0400 BP Systolic 118 mm[Hg] [facility] 01-14-2020 16:51-0400 Pulse (Heart Rate) 65 /min [facility], [place] 01-14-2020 16:51-0400 Pulse Oximetry 99 % [facility] 01-14-2020 16:51-0400 Respiratory Rate 14 /min [facility] 01-14-2020 13:48-0400 BMI (Body Mass Index) 30.47 kg/m2 [facility] 01-14-2020 13:48-0400 Body Temperature 98.1 [degF] [facility] 01-14-2020 13:48-0400 Body weight 85.64 kg [facility] 01-14-2020 13:48-0400 Height 167.6 cm [facility] 11-19-2019 17:35-0400 BP Diastolic 77 mm[Hg] [facility], [place] 11-19-2019 17:35-0400 BP Systolic 111 mm[Hg] [facility], [place] 11-19-2019 17:35-0400 Pulse (Heart Rate) 67 /min [facility], [place] 11-19-2019 17:35-0400 Pulse Oximetry 98 % [facility], [place] 11-19-2019 17:35-0400 Respiratory Rate 17 /min [facility], [place] 11-19-2019 15:40-0400 BMI (Body Mass Index) 31.34 kg/m2 [facility], [place] 11-19-2019 15:40-0400 Body Temperature 98.4 [degF] [facility], [place] 11-19-2019 15:40-0400 Body weight 90.77 kg [facility], [place] 11-19-2019 15:40-0400 Height 170.2 cm [facility], [place] 04-04-2019 17:18-0500 BP Diastolic 69 mm[Hg] [facility], [place] 04-04-2019 17:18-0500 BP Systolic 110 mm[Hg] [facility], [place] 04-04-2019 17:18-0500 Pulse (Heart Rate) 65 /min [facility], [place] 04-04-2019 17:18-0500 Pulse Oximetry 99 % [facility], [place] 04-04-2019 17:18-0500 Respiratory Rate 17 /min [facility], [place] 04-04-2019 16:14-0500 BMI (Body Mass Index) 33.89 kg/m2 [facility], [place] 04-04-2019 16:14-0500 Body weight 95.25 kg Siomara Mejia [facility], [place] 04-04-2019 16:14-0500 Height 167.6 cm Siomara Mejia [facility], [place] 04-04-2019 [id number] Body Temperature 97.9 [degF] Siomara Mejia [facility], [place] Encounters Encounter Date Encounter Type Care Provider Facility Start: 05-15-2024 End: 05-16-2024 ambulatory Zunilda EIDWU Facility:[facility] Start: 05-15-2024 Emergency department patient visit Robson Cartwright Facility:[facility] Start: 05-15-2024 End: 05-16-2024 Observation Zunilda CHACON [facility] Start: 03-23-2024 End: 03-25-2024 ambulatory [facility] Start: 03-23-2024 End: 03-25-2024 Subsequent hospital visit by physician Doug Arteaga MD [facility] Phone[facility] Comment on above: Leg edema, left Start: 11-16-2023 End: 11-16-2023 ambulatory [facility]G [facility] Start: 11-02-2023 End: 11-04-2023 ambulatory DOUG Johnson [facility] Start: 11-02-2023 End: 11-04-2023 Subsequent hospital visit by physician Doug Arteaga MD Work Phone: [facility] [employer] [email or web address] CT Scan Comment on above: Personal history of tobacco use Screening for AAA (a bdominal aortic aneurysm) Start: 10-17-2023 End: 10-17-2023 ambulatory DOUG [facility] Start: 10-17-2023 End: 10-17-2023 Subsequent hospital visit by physician [facility] Schedule [facility] Comment on above: Excessive daytime sl eepiness; Other sleep apnea Start: 09-30-2023 End: 09-30-2023 ambulatory SIOMARA BAEZA Not Available Start: 06-28-2023 End: 06-30-2023 ambulatory [facility]OUG [facility] Start: 05-12-2023 End: 05-14-2023 amb[facility] Start: 04-28-2023 End: 04-28-2023 Patient encounter procedure [place] Rasheeda [facility] Start: 04-21-2023 End: 04-21-2023 Emergency department patient visit Robson Cartwright [facility] Start: 11-27-2022 End: 11-27-2022 Emergency department patient visit Grant Vazquez [facility] Start: 10-11-2022 End: 10-12-[address] DOCTOR BAI Facility:[facility] Start: 06-26-2022 End: 06-26-[address] VIDYA SAMUEL . Facility:[facility] Start: 05-15-2022 End: 05-16-2022 Emergency department patient visit Alec Fountain [facility] Start: 02-11-2022 End: 02-11-[address] VIDYA SAMUEL . Facility:[facility] Start: 01-02-2022 End: 01-03-2022 Emergency department patient visit Jose Daniel Silva [facility] Start: 08-30-2021 End: 09-01-2021 Observation Juan A SCHAEFER [facility] Start: 03-05-2021 End: 03-05-2021 Subsequent hospital visit by physician Doug Arteaga MD Work Phone: [facility] Comment on above: Screening PSA (prost ate specific antigen) Start: 02-16-2021 End: 02-16-2021 Subsequent hospital visit by physician Doug Arteaga MD Work Phone: [email or web address] Comment on above: Hypercholesteremia; Essential hypertension Start: 06-02-2020 End: 06-02-2020 Emergency department patient visit Pan Barragan Work Phone: [facility] Comment on above: Diplopia (Primary [...] department patient visit Hardeep Merino Work Phone: [facility] Comment on above: Arm paresthesia, rig ht (Primary Dx) Start: 01-14-2020 End: 01-14-2020 Emergency department patient visit Pan Barragan Work Phone: [facility] Comment on above: Palpitations (Primar y Dx) Start: 12-03-2019 End: 12-03-2019 Subsequent hospital visit by physician Dashawn Ekg [facility] Comment on above: Palpitations Hypercholesteremia; Essential hypertension Start: 11-19-2019 End: 11-19-2019 Emergency department patient visit Devin Lui Work Phone: [facility] Comment on above: Tachycardia (Primary [...] End: 05-03-2019 Subsequent hospital visit by physician [facility] Comment on above: Arrived Start: 04-04-2019 End: 04-04-2019 Subsequent hospital visit by physician Doug Arteaga [facility] Start: 04-04-2019 End: 04-04-2019 Emergency department patient visit Siomara Mejia Work Phone: [facility] Comment on above: Palpitations (Primar y Dx) Start: 05-12-2017 Refill Kati L. Matilde cesar ORDER ADMINISTRATOR Work Phone: [facility] Comment on above: Medication Refill Start: 04-17-2017 Refill Kati L. Matilde cesar ORDER ADMINISTRATOR Work Phone: [facility] Comment on above: [...] Comment on above: Performed By: #### P [facility] #### [facility] [address] [place] [address] Dr. Rufina Ramirez Start: 03-05-2021 PSA screening [...] Phone: Start: 04-04-2019 Assay of troponin quantitative Siomraa Mejia Work Phone: Start: 04-04-2019 BASIC METABOLIC [...] Visi t (Medicare) Annual Wellness Visit (Medicare) [facility] Start: 11-15-2024 Depression Screen [facility] Screen [facility] Start: 11-01-2024 Screening for malign ant neoplasm of lung [facility] Start: 06-25-2024 Depression Screen Depression Screen [facility] Start: 02-12-2024 DTaP/Tdap/Td vaccine (2 - Td or Tdap) DTaP/Tdap/Td vaccine (2 - Td or Tdap) [facility] [employer] [facility] Start: 02-12-2024 DTaP/Tdap/Td vaccine (2 - Td) DTaP/Tdap/Td vaccine (2 - Td) [facility], [place] Start: 02-12-2024 Tetanus vaccination Tetanus: Every 1 0yrs [facility] Start: 01-29-2024 COVID-19 Vaccine ( season) COVID-19 Vaccine ( season) [facility] Start: 12-29-2023 Influenza vaccination Flu vaccine (# 1) [facility] Start: 11-16-2023 End: 11-16-2023 Patient encounter procedure 11/16/2023 10:20 AM EDT Office Visit [address] [phone] Doug Arteaga MD [address] [place] [id number] HCC - 6 months (around 11/01/2023) for HTN, Hyperlipidemia, gerd. [facility] Comment on above: HCC - 6 months (arou nd 11/01/2023) for HTN, Hyperlipidemia, gerd. Start: 11-01-2023 End: 11-01-2023 Patient encounter procedure 11/01/2023 10:20 AM EDT Office Visit [address] [phone] Doug Arteaga MD [address] [place] [id number] HCC - 6 months (around 11/01/2023) for HTN, Hyperlipidemia, gerd. [facility] Comment on above: HCC - 6 months (arou nd 11/01/2023) for HTN, Hyperlipidemia, gerd. Start: 10-29-2023 Annual Wellness Visi t (Medicare) Annual Wellness Visit (Medicare) [facility] Start: 10-29-2023 Screening for malign ant neoplasm of colon [facility] Start: 10-12-2023 Lipid panel Lipids [facility] Start: 01-28-2023 COVID-19 Vaccine ( season) COVID-19 Vaccine () [facility] Start: 02-16-2022 Lipid panel Lipid screen [facility] Work Phone: Start: 01-28-2022 Influenza vaccination Sequenti al Influenza Vaccine (#1) [facility] Start: 09-04-2021 Annual Wellness Visi t (AWV) Annual Wellness Visit (AWV) [facility] [employer] Phone: Start: 09-03-2021 End: 09-03-2021 Patient encounter procedure 09/03/2021 Office Visit Family Doug Marie MD [address] [place] [address] [facility] Start: 03-05-2021 End: 03-05-2021 Patient encounter procedure 03/05/2021 Office Visit Doug Inman MD [address] [place] [address] [facility] Start: 01-28-2021 Influenza vaccination Flu vaccine (# 1) [facility] [employer] Phone: Start: 12-02-2020 Lipid panel Lipid screen [facility] [place] Start: 08-25-2020 End: 08-25-2020 Office Visit [facility] Start: 04-28-2020 End: 04-28-2020 Office Visit 04/28/2020 Office Visit Cardiology Demetrius Jimenez MD [address] [place] [address] [facility] [employer] Start: 04-19-2020 Lipid panel Lipid screen [place], [place] Start: 04-19-2020 Lipid screen Lipid screen [facility] [employer] Phone: Start: 04-16-2020 End: 04-16-2020 Office Visit 04/16/2020 Office Visit Doug Inman MD [address] [place] [address] [facility] Start: 01-29-2020 Influenza vaccination Flu vaccine (# 1) [place] Start: 01-28-2020 End: 01-28-2020 Office Visit 01/28/2020 Office Visit Cardiology Demetrius Jimenez MD [address] [place], [place] [id number] [facility] [employer] Start: 12-25-2019 End: 12-25-2019 Office Visit 12/25/2019 Office Visit Cardiology Demetrius Jimenez MD [address] [place] [address] [facility] [employer] Start: 06-08-2019 Pneumococcal 65+ yea rs Vaccine (2 of 2 - PPSV23) Pneumococcal 65+ years Vaccine (2 of 2 - PPSV23) [place] Start: 06-05-2019 End: 06-05-2019 Office Visit 06/05/2019 Office Visit Family Medicine Doug Arteaga MD [address] [place] [address] [facility] Start: 2019 Lipid screen Lipid screen [place] Start: 01-28-2019 Influenza vaccination Flu vaccine (# 1) [place] Start: 10-25-2018 Annual Wellness Visi t (AWV) Annual Wellness Visit (AWV) [place] Start: 2018 Abdominal aortic ane urysm screening AAA screen [facility] Start: 2018 Fall risk assessment Falls Risk Asse ssment [facility] Start: 04-09-2017 Colon Cancer Screen FIT/FOBT Colon Cancer Screen FIT/FOBT [place] Start: 04-09-2017 Screening for malign ant neoplasm of colon Colon Cancer Screen FIT/FOBT [place] Start: 2013 Respiratory Syncytia l Virus (RSV) or age 60 yrs+ (1 - 1-dose 60+ series) Respiratory Syncytial Virus (RSV) or age 60 yrs+ (1 - 1-dose 60+ series) [facility] Start: 04-22-2009 Pneumococcal Vaccine : Age 65+ (2 - PCV) Pneumococcal Vaccine: Age 65+ (2 - PCV) [facility] Start: [address] lung screening Low dose CT lung screening [place], [place] Start: 2008 Screening for malign ant neoplasm of lung Low dose CT lung screening [place] Start: 2003 Administration of he rpes zoster vaccine Zoster Vaccines (1 of 2) [facility] Start: 2003 Screening for malign ant neoplasm of lung [facility] Start: 2003 Shingles Vaccine (1 of 2) Tabor gles Vaccine (1 of 2) [facility] Start: 1998 Screening for malign ant neoplasm of colon [facility] [employer] Start: 1993 Diabetes screen Diabetes screen [facility] [employer] Phone: Start: 1971 [facility] Start: 1965 Depression screening using PHQ-9 (Patient Health Questionnaire 9) score Depression Screening (PHQ-2/9) [facility] Start: 1956 History and physical examination, annual for health maintenance Wellness Visit [facility] Start: 1953 COVID-19 Vaccine (#1) COVID-19 Vacci ne (#1) [facility] Start: 1953 Hepatitis C screen Hepatitis C scree n [place] Start: 1953 Hepatitis C screening Hepatitis C sc allison [place] Start: 1953 Prostate specific an tigen measurement PSA Level [facility] Start: 1953 Screening for malign ant neoplasm of colon [facility] End: 05-02-2019 Bacteria identified Cx Nom (U) Urine Culture Microbiology Routine Burning with urination 1 Occurrences starting 05/02/2019 until 05/02/2019 [place] Comment on above: 1 Occurrences starti ng 05/02/2019 until 05/02/2019 Bacteria identified Cx Nom (U) Urine Culture Microbiology Routine Burning with urination 05/02/2019 3:00 PM [place] End: 10-17-2023 Baseline Diagnostic Sleep Study Baseline Diagnostic Sleep Study Sleep Center Routine Excessive daytime sleepiness Other sleep apnea 1 Occurrences starting 10/17/2023 until 10/17/2023 [facility] Comment on above: 1 Occurrences starti ng 10/17/2023 until 10/17/2023 End: 12-03-2019 Cardiac event monitor Cardiac event monitor Cardiac Services Routine Palpitations 1 Occurrences starting 12/03/2019 until 12/03/2019 [place] Comment on above: 1 Occurrences starti ng 12/03/2019 until 12/03/2019 End: 06-07-2019 Cardiac event monitor Cardiac event monitor Cardiac Services Routine Palpitations 1 Occurrences starting 06/07/2019 until 06/07/2019 [facility]: Comment on above: 1 Occurrences starti ng 06/07/2019 until 06/07/2019 End: 03-06-2020 Dermatology Pathology Dermatology Pathology Lab Routine Once for 1 Occurrences starting 03/06/2020 until 03/06/2020 [place] Comment on above: Once for 1 Occurrenc es starting 03/06/2020 until 03/06/2020 EKG 12 Lead [facility] [place] End: 04-04-2019 Holter monitor 48 hour Holter monitor 48 hour Cardiac Services Routine One Time for 1 Occurrences starting 04/04/2019 until 04/04/2019 [place] Comment on above: One Time for 1 Occur rences starting 04/04/2019 until 04/04/2019 End: 04-04-2020 Holter Monitor 48 Hour Holter Monitor 48 Hour Cardiac Services Routine Palpitations 1 Occurrences starting 04/04/2019 until 04/04/2020 [place] Comment on above: 1 Occurrences starti ng 04/04/2019 until 04/04/2020 Initiate Oxygen Ther apy Protocol Initiate Oxygen Therapy Protocol Respiratory Care Routine Daily until discontinued starting 11/19/2019, 2 completed [place] Comment on above: Daily until disconti nued starting 11/19/2019, 2 completed End: 07-30-2019 PSA, free PSA, free Lab Routine Once for 1 Occurrences starting 07/30/2019 until 07/30/2019 [place] Comment on above: Once for 1 Occurrenc es starting 07/30/2019 until 07/30/2019 PSA, free PSA, free Lab Ro utine 07/30/2019 1:01 PM EST [place] End: 04-09-2020 Surgical Pathology Surgical Pathology Lab Routine Skin lesion of left arm Squamous cell cancer of skin of forearm, left 1 Occurrences starting 04/09/2020 until 04/09/2020 [place] Comment on above: 1 Occurrences starti ng 04/09/2020 until 04/09/2020 End: 11-19-2019 THYROID PROF W/ TSH THYROID PROF W/ TSH Lab Routine One Time for 1 Occurrences starting 11/19/2019 until 11/19/2019 [place] Comment on above: One Time for 1 Occur rences starting 11/19/2019 until 11/19/2019 End: 11-19-2019 Urinalysis, reflex to microscopic Urinalysis, reflex to microscopic Lab STAT One Time for 1 Occurrences starting 11/19/2019 until 11/19/2019 [place] Comment on above: One Time for 1 Occur rences starting 11/19/2019 until 11/19/2019 End: 04-04-2019 XR CHEST PORTABLE XR CHEST PORTABLE Imaging STAT Once for 1 Occurrences starting 04/04/2019 until 04/04/2019 [place] Comment on above: Once for 1 Occurrenc es starting 04/04/2019 until 04/04/2019 XR CHEST PORTABLE XR CHEST ALFREDO BLE Imaging STAT 04/04/2019 4:38 PM EST [place] Immunizations Immunization Date Immunization Notes Care Provider Caio sánchez 05-02-2023 Influenza, FLUAD, (a ge 65 y+), Adjuvanted, 0.5mL [facility] Schedule [facility] 04-27-2022 Influenza, FLUAD, (a ge 65 y+), Adjuvanted, 0.5mL [facility] Schedule [facility] 04-15-2021 COVID-19, PFIZER PUR PLE top, DILUTE for use, (age 12 y+), 30mcg/0.3mL [facility] Schedule [facility] 08-19-2020 COVID-19, Pfizer, PF , 30mcg/0.3mL Doug Arteaga MD Work Phone: [facility] 07-29-2020 COVID-19, Pfizer, PF , 30mcg/0.3mL Doug Arteaga MD Work Phone: [facility] 04-09-2020 influenza, injectabl e, quadrivalent, preservative free [facility] [place] 02-25-2020 pneumococcal polysaccharide vaccine, 23 valent Doug [place], [place] 04-29-2019 influenza virus vacc ine, live, attenuated, for intranasal use Juan A [facility] [facility] 04-29-2019 influenza virus vacc ine, unspecified formulation Doug Arteaga MD Work Phone: [facility] 04-16-2019 influenza, injectabl e, quadrivalent, preservative free [facility], [place] 06-08-2018 pneumococcal conjuga te vaccine, 13 valent Siomara Roberto [facility] 04-05-2018 influenza, injectabl e, quadrivalent, preservative free [facility] Schedule [facility] 04-09-2017 Influenza Vaccine, unspecified formulation [facility] [place] 04-09-2017 influenza, injectabl e, quadrivalent, preservative free [facility] Schedule [facility] 03-19-2016 influenza, injectabl e, quadrivalent, preservative free [facility], [place] 03-19-2014 influenza virus vacc ine, unspecified formulation Siomara Mejia [facility] 02-11-2014 tetanus toxoid, redu brenda diphtheria toxoid, and acellular pertussis vaccine, adsorbed Siomara Roberto [facility] 04-22-2008 pneumococcal polysaccharide vaccine, 23 valent Siomara Mejia [place] Payers Date Payer Category Payer Medicare MEDICARE MEDICAR E PART A AND B xxxxxxxxxxx 2017-Present [phone] [address] [address] [place] [address] xxxxxxxxxxx [id number] 2017 Unknown [employer] [facility] xxxxxxxxxxxx 2017-Present [phone] [address] [place] [address] xxxxxxxxxxxx [id number] [employer] [employer] [id number] 2015-Present [phone] [address] [place] [address] [id number] 1959 Medicare [id number] .[id number] 1959 Unknown [id number] [id number] .[id number] 1953 Unknown [id number] 2.16.840.1.802894.3.579.2.593 1953 Unknown [id number] 2.16.840.1.423583.3.579.2.593 1953 Unknown [id number] 2.16.840.1.305977.3.579.2.593 1953 Unknown [id number] 2.16.840.1.398842.3.579.2.125 9 1953 Unknown [id number] 2.16.840.1.200467.3.579.2.125 9 1953 Unknown [id number] 2.16.840.1.414972.3.579.2.174 1953 Unknown [id number] 2.16.840.1.387463.3.579.2.174 1953 Unknown [id number] 2.16.840.1.955371.3.579.2.174 1953 Unknown [id number] 2.16.840.1.313780.3.579.2.174 1953 Unknown [id number] 2.16.840.1.099001.3.579.2.174 1953 Unknown [id number] 2.16.840.1.233524.3.579.2.174 1953 Unknown [id number] 2.16.840.1.369571.3.579.2.174 1953 Unknown [id number] 2.16.840.1.687331.3.579.2.174 1953 Unknown [id number] 2.16.840.1.829165.3.579.2.174 1953 Unknown [id number] 2.16.840.1.079210.3.579.2.174 1953 Unknown [id number] 2.16.840.1.103860.3.579.2.727 1953 Unknown [id number] 2.16.840.1.583282.3.579.2.727 1953 Unknown [id number] 2.16.840.1.268804.3.579.2.727 1953 Unknown [id number] 2.16.840.1.160261.3.579.2.727 1953 Unknown [id number] 2.16.840.1.308254.3.579.2.727 1953 Unknown [id number] 2.16.840.1.019834.3.579.2.727 1953 Unknown [id number] 2.16.840.1.220297.3.579.2.727 Social History Date Type Detail Facility Start: 04-04-2019 End: 11-16-2023 Tobacco smoking status TXIS Current every day smoker [facility] History of tobacco use Cigarette Smoker M [place] Start: 04-04-2019 End: 12-14-2022 Cigarettes smoked current (pack per day) - Reported SONYA RICHARD [facility] Start: 04-04-2019 End: 12-14-2022 Alcohol intake No [place] Start: 1955 Sex Assigned At Not on file [place] Start: 04-16-2019 End: 03-21-2024 Alcohol intake Current non-drinker of alcohol (finding) [place] Exposure to SARS-CoV -2 (event) Unable to assess [place] Start: 01-14-2020 End: 11-16-2023 Tobacco use and exposure Never used [place] Exposure to SARS-CoV -2 (event) Not sure [place] Start: 02-25-2020 End: 03-05-2021 History SDOH Financial 5 [place] Start: 02-25-2020 End: 03-05-2021 History SDOH Food Worry 1 [place], [place] Start: 05-08-2019 Tobacco smoking status Light t obacco smoker (finding) [facility] How often to you hav e a drink containing alcohol? Never [employer] How many standard drinks containing alcohol do you have on a typical day? Patient does not drink [employer] (I/We) worried [facility] (my/our) food would run out before (I/we) got money to buy more. Never true [employer] At any time in the p ast 12 months, were you homeless or living in penitentiary [including now]? No [employer] [facility] History of tobacco use Passive smoker [employer] How hard is it for y ou to pay for the very basics like food, housing, medical care, and heating Not very hard [employer] Functional Status Date Assessment Result Facility 05-15-2024 Functional Status N/A [facility] 05-15-2024 Functional Status [facility] 04-21-2023 Functional Status N/A [facility] 11-27-2022 Functional Status N/A [facility] 05-15-2022 Functional Status N/A [facility] 01-02-2022 Functional Status N/A [facility] Clinical Notes 04-18-2017 to 05-16-2024 Note Date & Type Note Facility 05-16-2024 Note Echocardiology Procedure Exam Date/Time Accession # Ordering Dr. Echo w/ Saline Bubbles 05/16/2024 10:10 [facility] [id number] Vilma Gaines CPT code [id number] Reason for Exam (Echo w/ Saline Bubbles) CVA Report [facility] [address] [place] [address] Adult Echocardiogram Report Name: NORY DSOUZA Study Date: 05/16/2024 09:04 AM BP: 135/70 mmHg Patient Location: [address] [place] [address] Bed(s) [facility] : 1955 Gender: Male Height: 65.5 in Age: 69 yrs Ethnicity: [facility] Weight: 238 lb Reason For Study: [...] Sanders MD Transcribed by: JOSE Technologist: XIOMARA [facility] 05-16-2024 Hospital Discharg e instructions Patient Education [...] Follow these instructions at home: Medicines Take [id number] and prescription medicines only as told by [...] were prescribed. Where to find more information [employer] Stroke Association: stroke.org Get help right away [...] provider. Document Revised: 10/29/2022 Document Reviewed: 10/29/2022 [employer] Patient Education 2023 [employer]. Follow Up Care 05/15/2024 14:53:10 With:Samantha Mccoy MD, NEU Address: [address] [place], [place] [id number]- Business (1) When:06/04/2024 13:40:00 Comments:Please, arrive 15 minutes early to do in patient paper work. With:DOUG DE LEONVINNY Address: [place] [address]- Business (1) When:5 to 7 days Comments:Office was closed for lunch. Patient needs to call to make hospital follow up appointment. 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 Recommend use of FWW at all times until further notice. [facility] NoteHistory and Physical Chief Complaint pt reports [...] 15::00) Lymph Auto: 29.8 % (05/15/24 15:01:00) [place] Auto: 16.6 % High (05/15/24 15:01:00) Eos Auto: 0.3 % (05/15/24::00) Basophil Auto: 0.5 % (05/15/24 15:01:00) Neutro Absolute: 2.7 E9/L (05/15/24:01:00) Lymph Absolute: 1.5 E9/L (05/15/24:01:00) [place] Absolute: 0.8 E9/L (05/15/24::00) Eos Absolute: 0 [...] 79 mg/dL (05/15/24 15:04:00) POC Device SN: [id number] (05/15/24 15:04:00) POC User ID: [id number] (05/15/24 15:04:00) POC Username: [email or web address] (more content not included)...[facility] Comment on above:Result Comment: Electronically Signed By: Tim SPENCER, Vilma Duron\.br\Date and Time Signed: 05/15/2417:56 EST\.br\Electronically Co-Signed By: Zunilda CHACON MD\.br\Date and Time Co-Signed: 05/15/2419:06 [id number] History of Present illness Narrative* Lennie Nolan - 10/17/2023 8:15 PM EDT Patient arrived for sleep testing. Testing explained, all questions answered, pt voices understanding. [facility] Discharge instructions Patient Education 04/21/2023 13:48:58 [...] your health care provider. General instructions Take qrps-cnc-ulvigtk and prescription medicines only as told by [...] provider. Document Revised: 09/28/2019 Document Reviewed: 09/28/2019 [employer] Patient Education 2022 [employer]. 04/21/2023 13:48:58 Acute Pain, Adult Acute Pain, [...] Follow these instructions at home: Medicines Take fvzo-vsm-uqjltul and prescription medicines only as told by [...] pain is severe. ?Do not take other tbfz-emw-hgyzaqa pain medicines in addition to prescription pain [...] grains, and fresh fruits and vegetables. ?Take deat-fud-zptstoj or prescription medicines. ?Limit foods that are [...] or you are no longer ill. Take lwmm-cwp-drtadwe and prescription medicines only as told by [...] Document Reviewed: 10/01/2019 Elsevier Patient Education 2022 [employer]. Follow Up Care 04/21/2023 13:14:23 With:DOUG ARTEAGA Address: [address] [place], [place] [address]marquis [place] [address]- Business (1) When:04/24/2023 13:30:48 [facility]07-01-2023 Hospital Discharge instructions Patient Education 11/27/2022 19:31:51 Urinary Tract Infection, Adult, Onol-rd-Qyic Urinary Tract Infection, Adult A urinary tract [...] Follow these instructions at home: Medicines Take oebr-sku-qfiexmc and prescription medicines only as told by [...] provider. Document Revised: 12/26/2020 Document Reviewed: 12/26/2020 [employer] Patient Education 2022 [employer]. 11/27/2022 18:22:38 Supraventricular Tachycardia, Adult, Spxj-en-Gvoz Supraventricular Tachycardia, Adult Supraventricular tachycardia (SVT) is [...] heartbeat as told by your doctor. Take illi-fst-yibotcy and prescription medicines only as told by [...] provider. Document Revised: 12/27/2020 Document Reviewed: 12/27/2020 [employer] Patient Education 2022 [employer]. You are currently taking four 25 mg doses of metoprolol daily. Starting Tuesday begin taking 2 tablets at dose #1 in the morning and 2 tablets at dose #3 in the late afternoon early evening. The otherdoses stay the same. Contact your modeling analyst Tuesday. Take copies of your monitor strip and your EKG with you. New symptoms, dizziness, shortness of breath, chest pain, or sustained rapid heartbeat should bring you back here. Follow Up Care 11/27/2022 16:18:04 With:Contact your modeling analyst Tuesday. Address:Unknown When: Unknown With:DOUG ARTEAGA Address: [address] [place] [address]. [place] [address]- Business (1) When:Within 3 Day(s) [facility]07-01-2023 Evaluation + Plan noteExtracted from: Title:ED Note Author:Grant Vazquez MD Date: 3 1. SVT (supraventricular tac hycardia) (I47.1: Supraventricular tachycardia) Acute UTI (urinary tract infection) (N39.0: Urinary tract infection, site not specified) Orders: cephalexin, 500 mg = 1 cap(s), Oral, BID, X 7 day(s), # 14 cap(s), Refills(s) 0, Pharmacy: [facility] #[id number], 170, cm, 11/27/22 16:29:00 EDT, Height/Length Dosing, 92.4, kg, 11/27/22 16:29:00 EDT, Weight Dosing cephalexin, 500 mg = 1 cap(s), Cap, Oral, Once, Stop date 11/27/22 18:58:00 EDT, STAT, Start date 11/27/22 18:58:00 EDT, 11/27/22 18:58:00 EDT metoprolol, See Instructions, 2 tabs in the morning and evening and 1 tab in the afternoon, # 20 tab(s), Refills(s) 0, Pharmacy: [facility] #[id number], 170, cm, 11/27/22 16:29:00 EDT, Height/Length Dosing, 92.4, kg, 11/27/22 16:29:00 EDT, Weight Dosing Diagnostic Tests Pending * Urine Culture 11/27/22 [facility]12-18-2022 Hospital Discharge instructions Patient Education 05/15/2022 23:39:24 Palpitations, Ijeq-bf-Ovsm Palpitations Palpitations are feelings that your heartbeat [...] a regular bed time. General instructions Take zanx-txe-rixupgp and prescription medicines only as told by [...] 02/22/2009 Document Revised: 06/28/2018 Document Reviewed: 06/28/2018 [employer] Patient Education 2020 [employer]. 05/15/2022 23:39:22 Nonspecific Chest Pain, Adult, Yjrd-mp-Htyc Nonspecific Chest Pain Chest pain can be [...] Follow these instructions at home: Medicines Take aget-qer-phqlrkj and prescription medicines only as told by [...] ?Eating a heart-healthy diet. A diet and pricing specialist (dietitian) can help you to learn [...] 11/01/2008 Document Revised: 11/16/2018 Document Reviewed: 11/16/2018 [employer] Patient Education 2020 [employer]. Follow Up Care 05/15/2022 19:43:58 With:ARNOL FISCHER, EWELINA CALVO Address: [address] [place] [address]. [place] [address]- When:05/17/2022 [facility]12-17-2022 Evaluation + Plan noteExtracted from: Title:ED [...] Troponin 6 Hr. XR Chest Single View [facility]08-07-2022 Evaluation + Plan noteExtracted from: Title:ED Note Author:Jose Daniel Silva DO Date :01/03/22 Palpitations (R00.2: Palpita tions) Orders: Automated Diff Basic Metabolic Panel CBC w/ Auto Diff ECG 12 Lead Adult ED Cardiac Monitoring eGFR Hepatic Function Panel Magnesium Level Oxygen Saturation Oxygen Therapy PT & PTT Saline Lock Insert Troponin 0 Hr. XR Chest Single View [facility]08-07-2022 Hospital Discharge instructions Patient Education 01/03/2022 01:25:02 Palpitations, Shtr-mb-Whpr Palpitations Palpitations are feelings that your heartbeat [...] a regular bed time. General instructions Take opqc-url-ptqlihd and prescription medicines only as told by [...] 02/22/2009 Document Revised: 06/28/2018 Document Reviewed: 06/28/2018 [employer] Patient Education 2020 [employer]. Follow Up Care 01/02/2022 22:55:07 With:DOUG ARTEAGA Address: [address] [place] [address]- Business (1) When:01/06/2022 Comments:Follow-up with your primary care doctor next 2 to 3 days for further evaluation and management. Please return the ED for any new or worsening symptoms. [facility]04-05-2022 Evaluation + Plan noteExtracted from: Title:Discharge [...] to go home and f/u w/PCP and Patient Consumer Marketer. Plan was discussed with patient and family (if applicable) at bedside Orders: metoprolol, 25 mg = 1 tab(s), Oral, QID, # 120 tab(s), Refills(s) 0, Pharmacy: [facility] 170, cm, 08/30/21 1:31:00 [...] AM EDT [address] [place] [address]- Business (1) Additional Instructions: Sagar Zamarripa [facility] [address] [place] [address]- Additional Instructions: Thrombocytopenia Extracted from: Title:Consult Note [...] was evaluated for something very similar in [place] seen by Dr. Elizabeth describes having Holter monitors, and event monitor and even a stress study it is not aware of any concerning findings. She has not seen his modeling analyst in quite some period of time. We [...] Physician consult Hospitalist for continued care Troponin [facility]04-03-2022 Hospital Discharge instructions Follow Up Care 08/30/2021 01:23:32 With:Sagar Zamarripa Address: [facility] [place] [address]- When: Unknown Comments:Thrombocytopenia With:DOUG ARTEAGA Address: [address] [place] [address] [place] [address]- Business (1) When:09/07/2021 09:20:00 [facility]12-14-2017 Telephone encounter Note* Telephone Encounter - Kati Mendieta CNP - 05/12/2017 8:08 AM EST Needs appt [id number] Miscellaneous Notes* Telephone Encounter - Kati Mendieta CNP - 05/12/2017 8:08 AM EST Needs appt documented in this [id number] Telephone encounter Note* Telephone Encounter - Kati Mendieta CNP - 04/18/2017 7:30 AM EST Patient has not been seen since April 2016. Please arrange 1 month refill and office visit [id number] Miscellaneous Notes* Telephone Encounter - Kati Mendieta CNP - 04/18/2017 7:30 AM EST Patient has not been seen since April 2016. Please arrange 1 month refill and office visit documented in this encounterOhioHealthEvaluation note* Diagnosis Hypercholesteremia Pure hypercholesterolemia Essential hypertension Unspecified essential hypertension documented in this encounter [employer] Phone: evaluation note* Diagnosis Screening PSA (prostate specific antigen) Special screening for malignant neoplasm of prostate documented in this encounter [employer] Phone: evaluation note* Diagnosis Palpitations documented in this encounter [employer] Phone: evaluation note* Diagnosis Excessive daytime sleepiness Other sleep apnea documented in this encounter SONYA RAMOS [facility]* Diagnosis Personal history of tobacco use Personal history of tobacco use, presenting hazards to health documented in this encounter [facility] HEALTHEvaluation note* Diagnosis Screening for AAA (abdominal aortic aneurysm) Screening for other and unspecified cardiovascular conditions documented in this encounter [facility]* Diagnosis Leg edema, left Edema documented in this encounter Critical access hospitalspital course Narrative No data available for this section [facility] Discharge instructions No data available for this section [facility] No data available for this section [facility] History of Present Illness * Rubi [...] FoundDocuments on File Type Date Recorded Patient Interlibrary Loan Specialist Expl anation Advance Directives and Living Will Power of Hosiery Mater Documents on File Type Date Recorded Patient Interlibrary Loan Specialist Expl anation Advance Directives and Living Will Power of Hosiery Mater Documents on File Type Date Recorded Patient Interlibrary Loan Specialist Expl anation ACP-Advance Directive ACP-Power of Hosiery Mater Healthcare Agents on File Name Relationship Healthcare [...] other concerns. Please follow up with your modeling analyst and family doctor in 1-2 days. * Attachments The following attachments cannot be sent through Care Everywhere. * Rate-Control Medicines: General Info ([place]) documented in this encounter* Attachments The following attachments cannot be sent through Care Everywhere. * Cardiac Arrhythmia ([place]) documented in this encounter* Attachments The following attachments cannot be sent through Care Everywhere. * Numbness and Tingling ([place]) documented in this encounter* Attachments The following attachments cannot be sent through Care Everywhere. * Numbness and Tingling ([place] Island[place]) documented in this encounter* Attachments The following attachments cannot be sent through Care Everywhere. * Diplopia ([place] Island[place]) documented in this encounter* Attachments The following attachments cannot be sent through Care Everywhere. * Palpitations ([place]) documented in this encounter Reason for Referral Status Reason Specialty Diagnoses / Procedures Referre d By Contact Referred To Contact Closed EKG Diagnoses Palpitations Procedures Cardiac event monitor Demetrius Jimenez MD [address] [place] [address] [facility] [address] [place] [address] Status Reason Specialty Diagnoses / Procedures Referred By Contact Referred To Contact Open Diagnoses Palpitations Procedures Holter Monitor 48 Hour Siomara Mejia MD [address] [place] [address] [place] [address] Status Reason Specialty Diagnoses / Procedures Referre d By Contact Referred To Contact Open Diagnoses Palpitations Procedures Cardiac event monitor HC EVENT MONITOR - [facility] Demetrius Jimenez MD [address] [place] [address] Specialty Diagnoses / Procedures Referred By Contac t Referred To Contact Sleep Center Diagnoses Excessive daytime sleepiness Other sleep apnea Procedures Baseline Diagnostic Sleep Study Doug Arteaga MD [address] [place] [phone] Referral ID Status Reason Start Date Expiration Date V isits Requested Visits Authorized [id number] Not Required - RTA 09/12/2023 09/11/2024 1 1 Specialty Diagnoses / Procedures Referred By Contac t Referred To Contact Radiology Diagnoses Personal history of tobacco use Procedures CT Lung Screen (Initial/Annual/Baseline) Doug Arteaga MD [address] [place] [phone] Referral ID Status Reason Start Date Expiration Date V isits Requested Visits Authorized [id number] Not Required - RTA 05/02/2023 05/01/2024 1 1 Specialty Diagnoses / Procedures Referred By Contac t Referred To Contact Diagnoses Screening for AAA (abdominal aortic aneurysm) Procedures Vascular AAA screening Doug Arteaga MD [address] [place] [phone] Referral ID Status Reason Start Date Expiration Date V isits Requested Visits Authorized [id number] Not Required - RTA 05/02/2023 05/01/2024 1 1 Specialty Diagnoses / Procedures Referred By Contac t Referred To Contact Diagnoses Leg edema, left Procedures Vascular duplex lower extremity venous left Doug Arteaga MD [address] [place] [phone] Referral ID Status Reason Start Date Expiration Date V isits Requested Visits Authorized [id number] Not Required - RTA 03/21/2024 03/21/2025 1 [...] SEST. REST STRESS MULT Doug Arteaga MD [address] [place] [address] Reason Comments Tachycardia states has fast hear t beat off and on -today it didnt go away as fast as normal Status Reason Specialty Diagnoses / Procedures Referre d By Contact Referred To Contact Closed EKG Diagnoses Palpitations Procedures Cardiac event monitor Demetrius Jimenez MD [address] [place] [address] [facility] [address] [place] [address] Reason Comments Tachycardia rapid heart rate papo [...] Procedures Cardiac event monitor [facility] Dem[facility]ri[facility] Jimenez MD [address] [place] [address] Reason Comments Medication Refill Specialty Diagnoses / Procedures Referred By Juma ya Referred To Contact Sleep Center Diagnoses Excessive daytime sleepiness Other sleep apnea Procedures Baseline Diagnostic Sleep Study Doug Arteaga MD [address] [place] [address] [facility] [address] [place] [address] Referral ID Status Reason Start Date Expiration Date V isits Requested Visits Authorized [id number] Not Required - RTA 06/28/2023 06/27/2024 1 1 Specialty Diagnoses / Procedures Referred By Contac t Referred To Contact Radiology Diagnoses Personal history of tobacco use Procedures CT Lung Screen (Initial/Annual/Baseline) oDug Arteaga MD [address] [place] [phone] Referral ID Status Reason Start Date Expiration Date V isits Requested Visits Authorized [id number] Not Required - RTA 05/02/2023 05/01/2024 1 1 Specialty Diagnoses / Procedures Referred By Contac t Referred To Contact Diagnoses Screening for AAA (abdominal aortic aneurysm) Procedures Vascular AAA screening Doug Arteaga MD [address] [place] [phone] Referral ID Status Reason Start Date Expiration Date V isits Requested Visits Authorized [id number] Not Required - RTA 05/02/2023 05/01/2024 1 1 Specialty Diagnoses / Procedures Referred By Contac t Referred To Contact Diagnoses Leg edema, left Procedures Vascular duplex lower extremity venous left Doug Arteaga MD [address] [place] [phone] Referral ID Status Reason Start Date Expiration Date V isits Requested Visits Authorized [id number] Not Required - RTA 03/21/2024 03/21/2025 1 1 Care Team (unrecognized sect ion and content) Phytopathologist Relationship Specialty Start Date End Date Doug Arteaga MD PCP - General Family Medicine 04/30/16 Phytopathologist Relationship Specialty Start Date End Date Doug Arteaga MD PCP - General Family Medicine 04/30/16 Phytopathologist Relationship Specialty Start Date End Date Doug Arteaga MD [address] [place], [place] [phone] PCP - General Family Medicine 06/09/17 Phytopathologist Relationship Specialty Start Date End Date Doug Arteaga MD [address] [place] [address] PCP - General Family Medicine 06/09/17 Phytopathologist Relationship Specialty Start Date End Date Doug Arteaga MD [address] [place] [address] PCP - General Family Medicine 06/09/17 (unrecognized [...] and content) DATE CREATED AUTHOR 10/12/[address] [facility] pital DATE CREATED AUTHOR AUTHOR'S ORGANIZ ATION 10/01/2023 [facility] DATE CREATED AUTHOR AUTHOR'S ORGANIZ ATION 03/26/2024 [facility] DATE CREATED AUTHOR AUTHOR'S ORGANIZ ATION 05/18/2024 [facility] DATE CREATED AUTHOR AUTHOR'S ORGANIZ ATION 05/19/2024 [facility] FOR RECORDS PERTAINING TO PATIENTS WHO [...] BE BASED ON THE PRIMARY CLINICAL RECORDS. The Online [facility]. provides no warranty or guarantee of the accuracy or completeness of information in this document.
[2024-05-21 06:15] LABS: Alanine Aminotransferase 18 U/L (16-63); Albumin Globulin Ratio 0.9; Albumin Level 2.8 g/dL (3.4-5.0); Alkaline Phosphatase 70 U/L (46-116); Anion Gap 14.3; Aspartate Amino Transferase 30 U/L (15-37); BUN Creatinine Ratio 13.3; Bilirubin Total 1.6 mg/dL (0.2-1.0); Calcium 8.3 mg/dL (8.5-10.1); Chloride 104 mmol/L (98-107); Estimated GFR (African America >60 (>=60 mL/min/1.73m^2); Estimated GFR (Non-African Ame >60 (>=60 mL/min/1.73m^2); Globulin 3.1 g/dL; Glucose 67 mg/dL (74-106); Magnesium 1.7 mg/dL (1.8-2.4); Potassium 4.3 mmol/L (3.5-5.1); Sodium 139 mmol/L (136-145); Total Protein 5.9 g/dL (6.4-8.2)
--- NOTE | 2024-05-21 08:53 | US_ITS ---
[address] [address] Patient Name: NORY DSOUZA MRN: [id number] date: 1955 Sex: M Assigned Patient Location: [place] Current Patient Location: [place] Accession/Order Number: [id number] Exam Date: 05/21/2024 11:55 Report Date: 05/21/2024 13:54 At the request of: SHAIKH RAFA Procedure: US venous doppler LE LT EXAM: US venous doppler LE LT HISTORY: r/o DVT COMPARISON: None. TECHNIQUE: Grayscale, color and Doppler FINDINGS: Region: Left leg Thrombus: None Flow: Normal Augmentation: Normal Compressibility: Normal Other: Extensive subcutaneous edema. Complex cystic structure measuring 6.4 x 2.7 cm in the posterior calf with multiple septations, indeterminate but not having appearance of an abscess US/US venous doppler LE LT IMPRESSION: No deep or superficial vein thrombus identified in the left leg Electronically authenticated by: MAYRA KENNEDY Date: 05/21/2024 13:54
[2024-05-21] MEDS: OMEPRAZOLE 20 MG CAPSULE.DR PO ×2 (09:05→21:10)
[2024-05-21] MEDS: ATORVASTATIN CALCIUM 40 MG TABLET PO (09:05)
[2024-05-21] MEDS: VANCOMYCIN HCL 1,750 MG in 0.9 % SODIUM CHLORIDE 500 ML 250 MG IV (10:19)
--- NOTE | 2024-05-21 11:19 | P.HP_ITS ---
HPI H&P: HPI History of Present Illness Chief complaint: LOWER EXTREMITY SWELLING CELLUITIS LEFT LEG Narrative: 69-year-old morbidly obese male with history of chronic left lower extremity lymphedema presented to ER with progressively worsening pain/erythema/swelling of his left lower extremity that extended from his foot to just below his knee. Pain was severe enough that he could not ambulate and came to ED for further evaluation. His symptoms started about 2 to 3 days ago. He denies having fever or recent antibiotic use. He has history of recurrent cellulitis because of lymphedema. He is also immunosuppressed because of chronic dexamethasone use for congenital adrenal hyperplasia. He denies any significant trauma but admits to bumping his leg every now and then when he is walking downstairs. He also denies any insect bites. Patient uses a cane to ambulate at home Opioid HPI Opioid Management Most Recent Pain and Opioid Data: Last Pain Scale 5 05/21/24 07:28 05/21/24 Last Pain Assessment 05/21/24 11:00 Last ORT Total Score 0 05/20/24 19:55 05/20/24 Last ORT Risk Category Low Risk 05/20/24 19:55 05/20/24 Review of Systems ROS Status of ROS 10 or more systems reviewed and unremark able except as noted in history and below [facility] Medical History (Updated 05/21/24 @ 11:20 by Shaikh Camelia MD) Morbid obesity ?E66.01 - Morbid (severe) obesity due to excess calories (ICD-10) HLD (hyperlipidemia) ?E78.5 - Hyperlipidemia, unspecified (ICD-10) Lymphedema ?I89.0 - Lymphedema, not elsewhere classified (ICD-10) Congenital adrenal hyperplasia ?E25.0 - 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 (ICD-10) Sleep apnea ?G47.30 - Sleep apnea, unspecified (ICD-10) Supraventricular tachycardia ?I47.10 - Supraventricular tachycardia, unspecified (ICD-10) High cholesterol ?E78.00 - Pure hypercholesterolemia, unspecified (ICD-10) Acquired lymphedema of leg ?I89.0 - Lymphedema, not elsewhere classified (ICD-10) Family History (Updated 05/20/24 @ 20:03 by Marisol Zimmerman) Father Family history of cancer Family history of hypertension Mother Family history of hypertension Sister Family history of myocardial infarction Social History (Updated 05/20/24 @ 20:04 by Marisol Zimmerman) Within the past year, how often did you have a drink containing alcohol: never Score interpretation: A score less than 4 is consistent with normal alcohol consumption. Smoking status: Current every day smoker Non-prescribed substance use: denies use Previous occupational history: retired Highest level of school completed/degree received: high school graduate Are you now , , , , never or living with a partner: In a typical week, how many times do you talk on the telephone with family, friends, or neighbors: 3 or more times per week How often do you get together with friends or relatives: 3 or more times per week How often do you attend mormon or scientology services: never Little interest or pleasure in doing things: not at all Feeling down, depressed, or hopeless: not at all Feel stressed/tense/nervous/anxious/difficulty sleeping: not at all Do you think of yourself as: straight/heterosexual Gender Identity: male Meds Home Medications and Allergies Home Medications ?Medication ?Instructions ?Recorded ?Confirmed ?Type atorvastatin 40 mg tablet 40 mg PO DAILY 05/20/24 05/20/24 History dexamethasone 0.5 mg tablet 0.5 mg PO DAILY 05/20/24 05/20/24 History diltiazem HCl 120 mg 120 mg PO DAILY 05/20/24 05/20/24 History capsule,extended release 24 hr lansoprazole 30 mg capsule,delayed 30 mg PO BID 05/20/24 05/20/24 History release (Prevacid) metoprolol tartrate 25 mg tablet 25 mg PO BID 05/20/24 05/20/24 History Allergies Allergy/AdvReac Type Severity Reaction Status Date / Time No Known Drug Allergies Allergy Verified 05/20/24 14:04 Exam Constitutional Vital Signs, click to edit/add: Last Vital Signs Temp 98.2 F 05/21/24 04:00 Pulse 77 05/21/24 09:53 Resp 18 05/21/24 04:00 BP 100/54 05/21/24 08:42 Pulse Ox 94 L 05/21/24 11:03 O2 Del Method Room Air 05/21/24 11:03 Documenting provider has reviewed patient's vital signs: yes Common normals: no apparent distress and oriented x3 General appearance: cooperative HENMT Common normals: normocephalic and head/scalp atraumatic Head and scalp: normocephalic and atraumatic Eye Common normals: conjunctivae normal and no scleral icterus Conjunctiva: conjunctiva(e) normal Respiratory Common normals: normal respiratory effort and clear to auscultation bilaterally Effort & inspection: able to speak in complete sentences Auscultation: clear to auscultation bilaterally Cardio Common normals: regular rate, S1 normal heart sound and S2 normal heart sound Rate: regular rate Heart sounds: S1 normal and S2 normal GI Common normals: Normal to inspection, nondistended, normoactive bowel sounds present, soft to palpation, non-tender and no hepatosplenomegaly Palpation: soft and no hepatosplenomegaly Extremity Other: Left LE - erythema,swelling and induration involving his feet, extending all the way to knee. Posteriorly mid calf - discrete area of swelling, concerning for an abscess. Neuro Common normals: oriented x3, moves all extremities and no focal motor deficits Psych Common normals: mental status grossly normal, denies hallucinations, denies homicidal ideation and denies suicidal ideation Results Labs Labs: Short CBC 05/20/24 05/21/24 Range/Units 14:29 05:35 WBC 12.6 H 10.5 (4.0-11.0) 10^3/uL Hgb 12.5 L 12.0 L (14.0-18.0) g/dL Hct 38.5 L 37.5 L (42.0-54.0) % Plt Count 80 L 72 L (150-450) 10^3/uL BMP 05/20/24 05/21/24 14:29 05:35 Sodium 139 139 Potassium 4.2 4.3 Chloride 103 104 Carbon Dioxide 25.4 25.0 BUN 14.0 13.0 Creatinine 1.00 0.98 Glucose 85 67 L Calcium 8.6 8.3 L Liver Function 05/20/24 05/21/24 Range/Units 14:29 05:35 Total Bilirubin 1.4 H 1.6 H (0.2-1.0) mg/dL AST 26 30 (15-37) U/L ALT 18 18 (16-63) U/L Alkaline Phosphatase 73 70 (46-116) U/L Albumin 3.2 L 2.8 L (3.4-5.0) g/dL Assessment and Plan Assessment and Plan (1) Cellulitis of left leg: Assessment and Plan: Left LE cellulitis with possible abscess. US ordered to r/o abscess or DVT. No improvement despite initial period of observation and IV abx. Switch IV abx to IV vancomycin/Zosyn. Dc unasyn. Patient at risk of resistant organisms, treatment failure due to hx of recurrent cellulitis, lymphedema and immunosuppressed status. (2) Immunosuppression due to chronic steroid use: Assessment and Plan: On daily Dexamethasone. C/w same. (3) Lymphedema: Assessment and Plan: Unclear etiology. Ongoing for about a year. Will need outpatient work up and f/u (4) Congenital adrenal hyperplasia: Assessment and Plan: on Dexamthasone. C/w same (5) HLD (hyperlipidemia): Assessment and Plan: Cw Lipitor. Qualifiers: Hyperlipidemia type: unspecified Qualified Code(s): E78.5 - Hyperlipidemia, unspecified (6) Morbid obesity: Assessment and Plan: Will benefit from weight loss. Defer to PCP to discuss GLP1 agonists vs Bariatric surgery. Plan Switch to inpatient status since no improvement despite initial period of observation and IV abx. Patient at risk of resistant organisms, treatment failure due to hx of recurrent cellulitis, lymphedema and immunosuppressed status.
--- NOTE | 2024-05-21 11:28 | PC.NURSE ---
Ultrasound notified that pt will now agree to venous doppler
--- NOTE | 2024-05-21 11:40 | CM.NOTE ---
Rounds made with Dr. Denise, pt will change to inpatient. Pt continues with redness to LLE with no improvement. Pt will need ultrasound and continue IV antibiotics.
--- NOTE | 2024-05-21 11:44 | CM.NOTE ---
Important message From Medicare discussed with pt, pt verbalizes understanding and signs paper. Original given to pt and copy placed on pt's chart.
[2024-05-21] MEDS: PIPERACILLIN SODIUM/TAZOBACTAM 3.375 GM in 0.9 % SODIUM CHLORIDE 50 ML IV ×2 (13:09→21:10)
--- NOTE | 2024-05-21 14:50 | SWNOTE1 ---
SW met with pt to discuss dc needs. Pt's son, daughter in law, daughter, and son in law were in room. Pt lives at home alone and uses a walker at home. Pt voiced he was getting around alright, but pain in leg was limiting him. SW asked if his kids were a good support and checked on him? He stated no not really. His kids in room did not really answer. SW asked pt if he has HH coming in? He stated no. SW asked if he would be open to home health? SW explained what home health was and advised they do not do laundry, cooking, cleaning, etc. Pt voiced that is what he needs. SW did let him know that would be private caregivers and it would be out of pocket. SW did express that HH would be beneficial to get him stronger and a nurse to check on his leg. Pt is in agreement. SW provided list from Medicare.gov with star ratings. Pt's daughter will look over and SW to check back.
--- NOTE | 2024-05-21 15:52 | SWNOTE1 ---
EAN checked back in and [facility] would like [facility]. EAN called [facility] and earliest they can do is Tuesday to start care. EAN called [facility] and they stated the same thing. Referral sent to [facility] . Referral included face sheet, ED note, H&P, provider notes, case management report, and PT notes.
--- NOTE | 2024-05-21 15:53 | SWNOTE1 ---
SW checked therapy notes and SNF was recommended. SW went back in and spoke to pt, daughter and son in law. SW explained that SNF is recommended. SW asked pt and family how therapy went and he stated painful and he could not walk. SW advised them that SNF is recommended, but if pain gets better, pt may improve and HH would be recommended. At this time pt and family took list from medicare.gov star ratings of SNF in area to review. SW explained to them how Medicare works in regards to paying for SNF and a 3 day stay. They voiced understanding. SW to stop back in tomorrow and see what facility is chosen and if pt agrees to go SNF.
--- NOTE | 2024-05-21 16:01 | SWNOTE1 ---
SW did provide daughter with private director of home care hospice list as well.
[2024-05-21] MEDS: METOPROLOL TARTRATE 25 MG TABLET PO (21:10)
[2024-05-21] MEDS: VANCOMYCIN HCL 1,250 MG in 0.9 % SODIUM CHLORIDE 250 ML 166.667 MG IV (22:18)
[2024-05-22] MEDS: PIPERACILLIN SODIUM/TAZOBACTAM 3.375 GM in 0.9 % SODIUM CHLORIDE 50 ML IV ×2 (05:09→14:22)
[2024-05-22 05:33] VITALS: BP 119/65; PULSE 82; TEMP 36.8; O2SAT 90
[2024-05-22 05:48] VITALS: O2SAT 91
[2024-05-22 06:26] LABS: Basophils Percent Auto 0.1 % (0.2-2.0); Eosinophils Percent Auto 0.1 % (0.9-7.0); Hematocrit 36.1 % (42.0-54.0); Hemoglobin 11.5 g/dL (14.0-18.0); Immature Granulocytes Abs Auto 0.22 10^3/uL (0.00-0.03); Immature Granulocytes Pct Auto 2.6 % (0.0-0.5); Lymphocytes Absolute Auto 0.9 10^3/uL (1.2-3.8); Lymphocytes Percent Auto 10.7 % (20.5-60.0); Mean Corpuscular HGB Conc 31.9 g/dL (29.9-35.2); Mean Corpuscular Hemoglobin 33.2 pg (25.9-34.0); Mean Corpuscular Volume 104.3 fL (80.0-94.0); Mean Platelet Volume 12.8 fL (9.5-13.5); Monocytes Percent Auto 23.5 % (1.7-12.0); Neutrophils Absolute Auto 5.2 10^3/uL (1.4-6.5); Platelet Count 71 10^3/uL (150-450); Red Blood Count 3.46 10^6/uL (4.70-6.10); Red Cell Distribution Width 14.1 % (11.0-15.0); White Blood Count 8.3 10^3/uL (4.0-11.0)
[2024-05-22 06:43] LABS: Alanine Aminotransferase 21 U/L (16-63); Albumin Globulin Ratio 0.8; Albumin Level 2.5 g/dL (3.4-5.0); Alkaline Phosphatase 66 U/L (46-116); Anion Gap 13.1; Aspartate Amino Transferase 29 U/L (15-37); BUN Creatinine Ratio 13.5; Bilirubin Total 1.3 mg/dL (0.2-1.0); Calcium 8.3 mg/dL (8.5-10.1); Chloride 105 mmol/L (98-107); Estimated GFR (African America >60 (>=60 mL/min/1.73m^2); Estimated GFR (Non-African Ame >60 (>=60 mL/min/1.73m^2); Globulin 3.3 g/dL; Glucose 84 mg/dL (74-106); Potassium 4.1 mmol/L (3.5-5.1); Sodium 138 mmol/L (136-145); Total Protein 5.8 g/dL (6.4-8.2)
[2024-05-22 09:08] VITALS: BP 121/73
[2024-05-22] MEDS: OMEPRAZOLE 20 MG CAPSULE.DR PO ×2 (09:08→21:15)
[2024-05-22] MEDS: DILTIAZEM HCL 120 MG CAP.ER.24H PO (09:08)
[2024-05-22] MEDS: VANCOMYCIN HCL 1,250 MG in 0.9 % SODIUM CHLORIDE 250 ML 167 MG IV (09:08)
[2024-05-22] MEDS: METOPROLOL TARTRATE 25 MG TABLET PO ×2 (09:08→21:15)
[2024-05-22] MEDS: ATORVASTATIN CALCIUM 40 MG TABLET PO (09:08)
--- NOTE | 2024-05-22 09:23 | SWNOTE1 ---
SW received a message from case management and pt would like [facility] or [facility] for rehab. SW reached out to [facility] and they do have openings. Referral sent to [facility]. Referral included face sheet, ED note, H&P, provider notes, case management report, nursing notes, diagnostic imaging, med list, and PT notes.
--- NOTE | 2024-05-22 09:51 | CM.NOTE ---
Rounds made with Dr. Darden, discussed with pt discharge planning. Pt in agreement for skilled when medically stable. Pt requests either [facility] or [facility]. [place]ool txt sent to SS. Not much improvement to LLE in swelling or redness. Pt will need to continue IV antibiotics, no discharge today.
--- NOTE | 2024-05-22 10:46 | PM.PN ---
Progress Note: Subjective Subjective Interval history: Patient unchanged overnight. Continues to have redness, pain and swelling to LLE. Afebrile. Continues to have difficulty ambulating and difficulty with transfers. Normal PO and no emesis or diarrhea. No chest pain or palpitations. No SOB or cough. Seen by PT and recommended SNF. Exam Constitutional Vital Signs, click to edit/add: Last Vital Signs Temp 98.2 F 05/22/24 05:33 Pulse 82 05/22/24 05:33 Resp 18 05/22/24 05:33 BP 121/73 05/22/24 09:08 Pulse Ox 91 L 05/22/24 05:48 O2 Del Method Room Air 05/22/24 05:48 Documenting provider has reviewed patient's vital signs: yes Common normals: no apparent distress, oriented x3 and alert HENMT Common normals: normocephalic Respiratory Common normals: normal respiratory effort and clear to auscultation bilaterally Cardio Common normals: regular rate, regular rhythm, no gallops, no murmurs and no rub GI Common normals: Normal to inspection, nondistended, normoactive bowel sounds present and non-tender Extremity Left lower extremity: lower leg (Moderate erythema and 3+ edema ) Progress Note: Objective Labs Labs: Short CBC 05/22/24 Range/Units 05:56 WBC 8.3 (4.0-11.0) 10^3/uL Hgb 11.5 L (14.0-18.0) g/dL Hct 36.1 L (42.0-54.0) % Plt Count 71 L (150-450) 10^3/uL BMP 05/22/24 05:56 Sodium 138 Potassium 4.1 Chloride 105 Carbon Dioxide 24.0 BUN 13.0 Creatinine 0.96 Glucose 84 Calcium 8.3 L Liver Function 05/22/24 Range/Units 05:56 Total Bilirubin 1.3 H (0.2-1.0) mg/dL AST 29 (15-37) U/L ALT 21 (16-63) U/L Alkaline Phosphatase 66 (46-116) U/L Albumin 2.5 L (3.4-5.0) g/dL Progress Note: A&P Assessment and Plan (1) Cellulitis of left leg: (2) Immunosuppression due to chronic steroid use: (3) Lymphedema: (4) Congenital adrenal hyperplasia: (5) HLD (hyperlipidemia): Qualifiers: Hyperlipidemia type: unspecified Qualified Code(s): E78.5 - Hyperlipidemia, unspecified (6) Morbid obesity: Plan Patient slow to respond to treatment. Continues to have moderate erythema and continue zosyn and vanco. Monitor labs and vitals. Very unsteady and continue PT. Likely will need SNF once ready for discharge.
--- NOTE | 2024-05-22 10:49 | REH.PTDLY ---
Physical Therapy Daily Note PT Daily Note/Assess Start: 05/22/24 10:34 Freq: Status: Active Protocol: Document 05/22/24 10:35 EDGAR (Rec: 05/22/24 10:49 EDGAR [id number]) Physical Therapy Daily Note/Assessment Time In 10:10 Time Out 10:30 Subjective Pt initially declines PT, states he's been up and down with OT and just got done going to bathroom with nurses . Educated pt on importance of working with PT if he is struggling with mobility and needing to go SNF from hospital. Spoke with patient case manager and she enters room and discusses importance of working with PT and pt is then agreeable. Therapeutic Exercise 9 Minutes (minutes) Therapeutic Exercise 1 Units Therapeutic Exercise Instructed in B LE exs with legs elevated in chair with Treatment exs including AP, QS, heel slides, SLR, and hip abd slides 10x ea for improved mobility and strength. Cues and demo give during exs for understanding. With legs lowered, instructed in LAQ, marching, and hip add squeezes 10x ea Therapeutic Activity 8 Minutes (minutes) Therapeutic Activity 0 Units Therapeutic Activity Sit to stand transfers CGA. Gait training with RW 15 Comments feet around bed CGA, with pt ambulating with step to gait pattern and forward flexed posture. Cues for pt to stay closer to the RW for safety and to try taking a larger step with R LE. Pt requires Min A with supine to sit transfers. Total Therapy 17 Minutes Total Physical 1 Therapy Units Daily Note Summary Pt requires assistance for safety with transfers and gait due to pain in L LE limiting ambulation. Pt reports pain of 6/10 when having to move L LE. Pt would benefit from SNF stay to become stronger and have improved gait quality.
--- NOTE | 2024-05-22 10:50 | SWNOTE1 ---
SW received message from Megan and Julieta at [facility] and they are able to accept once pt is stable for discharge.
[2024-05-22 11:09] VITALS: O2SAT 92
[2024-05-22 14:20] VITALS: BP 108/68; PULSE 87; TEMP 36.6; O2SAT 91
[2024-05-22 20:56] VITALS: BP 116/76; PULSE 84; TEMP 36.9; O2SAT 90
[2024-05-22] MEDS: VANCOMYCIN HCL 1,250 MG in 0.9 % SODIUM CHLORIDE 250 ML 166 MG IV (21:59)
[2024-05-23] VITALS (7 sets, daily range): BP systolic 119–136; BP diastolic 69–75; PULSE 80–94; TEMP 36.6–36.9; O2SAT 90–95
[2024-05-23] MEDS: PIPERACILLIN SODIUM/TAZOBACTAM 3.375 GM in 0.9 % SODIUM CHLORIDE 50 ML IV ×3 (06:16→20:16)
[2024-05-23 06:22] LABS: Hematocrit 36.6 % (42.0-54.0); Hemoglobin 11.8 g/dL (14.0-18.0); Immature Granulocytes Abs Auto 0.15 10^3/uL (0.00-0.03); Immature Granulocytes Pct Auto 1.9 % (0.0-0.5); Lymphocytes Absolute Auto 1.1 10^3/uL (1.2-3.8); Mean Corpuscular HGB Conc 32.2 g/dL (29.9-35.2); Mean Corpuscular Hemoglobin 33.7 pg (25.9-34.0); Mean Corpuscular Volume 104.6 fL (80.0-94.0); Mean Platelet Volume 12.7 fL (9.5-13.5); Monocytes Absolute Auto 1.4 10^3/uL (0.3-0.8); Monocytes Percent Auto 18.1 % (1.7-12.0); Neutrophils Absolute Auto 5.1 10^3/uL (1.4-6.5); Platelet Count 85 10^3/uL (150-450); White Blood Count 7.7 10^3/uL (4.0-11.0)
[2024-05-23 06:54] LABS: Alanine Aminotransferase 24 U/L (16-63); Albumin Globulin Ratio 0.8; Albumin Level 2.7 g/dL (3.4-5.0); Alkaline Phosphatase 67 U/L (46-116); Anion Gap 13.8; Aspartate Amino Transferase 33 U/L (15-37); BUN Creatinine Ratio 16.2; Bilirubin Total 1.1 mg/dL (0.2-1.0); Calcium 8.5 mg/dL (8.5-10.1); Carbon Dioxide 24.3 mmol/L (21.0-32.0); Chloride 105 mmol/L (98-107); Estimated GFR (African America >60 (>=60 mL/min/1.73m^2); Estimated GFR (Non-African Ame >60 (>=60 mL/min/1.73m^2); Globulin 3.6 g/dL; Glucose 91 mg/dL (74-106); Potassium 4.1 mmol/L (3.5-5.1); Sodium 139 mmol/L (136-145); Total Protein 6.3 g/dL (6.4-8.2)
[2024-05-23] MEDS: ATORVASTATIN CALCIUM 40 MG TABLET PO (08:24)
[2024-05-23] MEDS: OMEPRAZOLE 20 MG CAPSULE.DR PO ×2 (08:24→20:16)
[2024-05-23] MEDS: DILTIAZEM HCL 120 MG CAP.ER.24H PO (08:24)
[2024-05-23] MEDS: METOPROLOL TARTRATE 25 MG TABLET PO ×2 (08:25→20:16)
[2024-05-23] MEDS: VANCOMYCIN HCL 1,250 MG in 0.9 % SODIUM CHLORIDE 250 ML 250 MG IV (10:10)
--- NOTE | 2024-05-23 10:20 | PM.IMPN1 ---
Progress Note: A&P Assessment and Plan (1) Cellulitis of left leg: Assessment and Plan: Mild improvement. C/w current abx. F/u cultures. No abscess on US. (2) Immunosuppression due to chronic steroid use: Assessment and Plan: At high risk of resistant organisms due to chronic steroid use. On broad spectrum abx. (3) Lymphedema: Assessment and Plan: Chronic LLE lymphedema. Unclear etiology. (4) Congenital adrenal hyperplasia: Assessment and Plan: On low dose dexamethasone. (5) HLD (hyperlipidemia): Assessment and Plan: C/w Lipitor Qualifiers: Hyperlipidemia type: unspecified Qualified Code(s): E78.5 - Hyperlipidemia, unspecified (6) Morbid obesity: Assessment and Plan: Will benefit from weight loss. Internal Medicine - PN: Subj Subjective Interval history: Seen and examined. No overnight events. Mild improvement in pain and erythema now receding from his foot. Exam Constitutional Vital Signs, click to edit/add: Last Vital Signs Temp 98.4 F 05/23/24 08:28 Pulse 82 05/23/24 08:28 Resp 18 05/23/24 08:28 BP 120/74 05/23/24 08:28 Pulse Ox 90 L 05/23/24 08:28 O2 Del Method Room Air 05/23/24 08:28 Documenting provider has reviewed patient's vital signs: yes Common normals: no apparent distress and oriented x3 General appearance: cooperative Respiratory Common normals: normal respiratory effort and clear to auscultation bilaterally Effort & inspection: able to speak in complete sentences Auscultation: clear to auscultation bilaterally Cardio Common normals: regular rate, S1 normal heart sound and S2 normal heart sound Rate: regular rate Heart sounds: S1 normal and S2 normal Extremity Other: Left LE - erythema,swelling and induration from ankle extending all the way to knee. Neuro Common normals: oriented x3, moves all extremities and no focal motor deficits Psych Common normals: mental status grossly normal, denies hallucinations, denies homicidal ideation and denies suicidal ideation Internal Medicine - PN: Obj Da Labs Labs: Laboratory Results - last 24 hr 05/23/24 05:49 WBC 7.7 RBC 3.50 L Hgb 11.8 L Hct 36.6 L MCV 104.6 H MCH 33.7 MCHC 32.2 RDW 14.0 Plt Count 85 L MPV 12.7 Neut % (Auto) 66.0 Lymph % (Auto) 14.0 L [place] % (Auto) 18.1 H Eos % (Auto) 0.0 L Baso % (Auto) 0.0 L Neut # (Auto) 5.1 Lymph # (Auto) 1.1 L [place] # (Auto) 1.4 H Eos # (Auto) 0.0 Baso # (Auto) 0.0 Abs Immat Gran (auto) 0.15 H Imm/Tot Granulo (auto) 1.9 H Sodium 139 Potassium 4.1 Chloride 105 Carbon Dioxide 24.3 Anion Gap 13.8 BUN 16.0 Creatinine 0.99 Est GFR ( Amer) >60 Est GFR (Non-Af Amer) >60 BUN/Creatinine Ratio 16.2 Glucose 91 Calcium 8.5 Total Bilirubin 1.1 H AST 33 ALT 24 Alkaline Phosphatase 67 Total Protein 6.3 L Albumin 2.7 L Globulin 3.6 Albumin/Globulin Ratio 0.8
[2024-05-23 22:31] LABS: Vancomycin Trough 14.9 ug/mL (5.0-20.0)
[2024-05-24] MEDS: VANCOMYCIN HCL 1,250 MG in 0.9 % SODIUM CHLORIDE 250 ML 205 MG IV (00:06)
[2024-05-24] MEDS: PIPERACILLIN SODIUM/TAZOBACTAM 3.375 GM in 0.9 % SODIUM CHLORIDE 50 ML IV (04:26)
[2024-05-24 05:08] VITALS: BP 118/81; PULSE 92; TEMP 36.4; O2SAT 90
[2024-05-24 06:46] LABS: Hematocrit 37.6 % (42.0-54.0); Hemoglobin 12.1 g/dL (14.0-18.0); Mean Corpuscular HGB Conc 32.2 g/dL (29.9-35.2); Mean Corpuscular Hemoglobin 33.9 pg (25.9-34.0); Mean Corpuscular Volume 105.3 fL (80.0-94.0); Platelet Count 107 10^3/uL (150-450); Red Blood Count 3.57 10^6/uL (4.70-6.10); Red Cell Distribution Width 13.8 % (11.0-15.0)
[2024-05-24 07:03] LABS: Alanine Aminotransferase 30 U/L (16-63); Albumin Globulin Ratio 0.7; Albumin Level 2.7 g/dL (3.4-5.0); Alkaline Phosphatase 63 U/L (46-116); Anion Gap 14.1; Aspartate Amino Transferase 34 U/L (15-37); Bilirubin Total 0.9 mg/dL (0.2-1.0); Calcium 8.4 mg/dL (8.5-10.1); Carbon Dioxide 23.8 mmol/L (21.0-32.0); Chloride 106 mmol/L (98-107); Estimated GFR (African America >60 (>=60 mL/min/1.73m^2); Estimated GFR (Non-African Ame >60 (>=60 mL/min/1.73m^2); Globulin 3.8 g/dL; Glucose 94 mg/dL (74-106); Potassium 3.9 mmol/L (3.5-5.1); Sodium 140 mmol/L (136-145); Total Protein 6.5 g/dL (6.4-8.2)
[2024-05-24 07:15] LABS: Lymphocytes Absolute Manual 1.96 10^3/uL (1.20-3.80); Monocytes Absolute Manual 0.42 10^3/uL (0.30-0.80); Segmented Neut Absolute Manual 4.62 10^3/uL (1.4-6.5)
[2024-05-24 07:16] LABS: Macrocytosis 1+
[2024-05-24] MEDS: ACETAMINOPHEN 325 MG TABLET 650 MG PO (07:31)
[2024-05-24] MEDS: ATORVASTATIN CALCIUM 40 MG TABLET PO (08:31)
[2024-05-24] MEDS: DILTIAZEM HCL 120 MG CAP.ER.24H PO (08:31)
[2024-05-24] MEDS: OMEPRAZOLE 20 MG CAPSULE.DR PO (08:31)
[2024-05-24] MEDS: METOPROLOL TARTRATE 25 MG TABLET PO (08:31)
--- NOTE | 2024-05-24 09:36 | SWNOTE1 ---
2nd notice of Important Message from Medicare reviewed with patient. No questions at this time.
--- NOTE | 2024-05-24 09:52 | P.DS_ITS ---
DS: Providers Provider Date of admission: 05/21/24 10:43 Primary care physician: DOUG AMBROSE Admitting clinician: Shaikh Camelia Attending physician on admission: Shaikh Camelia Consults: 05/21/24 11:24 Physical Therapy Eval and Treat Routine Reason for consultation: Weakness, pain, unable to ambulate 05/22/24 Occupational Therapy Eval and Treat Routine Reason for consultation: weakness Attending physician on discharge: Shaikh Camelia Discharging clinician: Shaikh Camelia Anticipated date of discharge: 05/24/24 DS: Diagnosis Discharge Diagnosis (1) Cellulitis of left leg: (2) Immunosuppression due to chronic steroid use: (3) Lymphedema: (4) Congenital adrenal hyperplasia: (5) HLD (hyperlipidemia): Qualifiers: Hyperlipidemia type: unspecified Qualified Code(s): E78.5 - Hyperlipidemia, unspecified (6) Morbid obesity: DS: Summary Hospital Course Hospital Course: 69-year-old morbidly obese male with history of chronic left lower extremity lymphedema presented to ER with progressively worsening pain/erythema/swelling of his left lower extremity that extended from his foot to just below his knee. Pain was severe enough that he could not ambulate and came to ED for further evaluation. His symptoms started about 2 to 3 days ago. Patient was treated initially with IV unasyn but showed no improvement. He was then switched to IV Vancomycin/zosyn. US showed findings suggestive of cellulitis, no DVT and small cystic swelling posteriorly on calf. Patient's cellulitis gradually improved along with his pain/swelling and erythema. He was also eval by PT/OT. He is medically stable for discharge on oral Bactrim and Augmentin He will need outpatient f/u with PCP and will benefit from following Lymphedema clinic as outpatient. Status at Discharge Overall status at discharge: patient is back to baseline Time Spent with Patient Time attestation: Total time spent providing and/or coordinating discharge services: Time spent: greater than 30 minutes Exam Constitutional Vital Signs, click to edit/add: Last Vital Signs Temp 97.5 F L 05/24/24 05:08 Pulse 92 H 05/24/24 05:08 Resp 18 05/24/24 05:08 BP 118/81 05/24/24 05:08 Pulse Ox 90 L 05/24/24 05:08 O2 Del Method Room Air 05/24/24 05:08 Documenting provider has reviewed patient's vital signs: yes Common normals: no apparent distress and oriented x3 General appearance: cooperative Respiratory Common normals: normal respiratory effort and clear to auscultation bilaterally Effort & inspection: able to speak in complete sentences Auscultation: clear to auscultation bilaterally Cardio Common normals: regular rate, S1 normal heart sound and S2 normal heart sound Rate: regular rate Heart sounds: S1 normal and S2 normal Extremity Other: Left LE - erythema,swelling and induration from ankle extending just below knee. Tenderness resolved. Erythema/swelling considerably improved.. DS: Data Data Completed and Pending Labs on day of discharge: Labs from last 24 hours 05/24/24 05/24/24 05/23/24 06:21 06:13 22:00 WBC 7.0 RBC 3.57 L Hgb 12.1 L Hct 37.6 L MCV 105.3 H MCH 33.9 MCHC 32.2 RDW 13.8 Plt Count 107 L MPV 12.0 Seg Neuts % (Manual) 66.0 Lymphocytes % (Manual) 28.0 Monocytes % (Manual) 6.0 Eosinophils % (Manual) 0.0 L Basophils % (Manual) 0.0 L Neutrophils # (Manual) 4.62 Lymphocytes # (Manual) 1.96 Monocytes # (Manual) 0.42 Eosinophils # (Manual) 0.00 Basophils # (Manual) 0.00 Macrocytosis 1+ Sodium 140 Potassium 3.9 Chloride 106 Carbon Dioxide 23.8 Anion Gap 14.1 BUN 16.0 Creatinine 0.94 Est GFR ( Amer) >60 Est GFR (Non-Af Amer) >60 BUN/Creatinine Ratio 17.0 Glucose 94 Calcium 8.4 L Total Bilirubin 0.9 AST 34 ALT 30 Alkaline Phosphatase 63 Total Protein 6.5 Albumin 2.7 L Globulin 3.8 Albumin/Globulin Ratio 0.7 Vancomycin Trough 14.9 Preliminary micro results at discharge 05/20/24 14:37 Blood Culture Result 2 - Preliminary Blood NO GROWTH AT 36-48 HOURS. FINAL TO FOLLOW. 05/20/24 14:29 Blood Culture Result 1 - Preliminary Blood NO GROWTH AT 36-48 HOURS. FINAL TO FOLLOW. Discharge Plan Discharge Disposition: Xfer SNF Discharge Medications: New sulfamethoxazole-trimethoprim [Bactrim DS] 800-160 mg tablet 1 tab PO BID Qty: 14 0RF amoxicillin-pot clavulanate 875-125 mg tablet 1 tab PO BID Qty: 14 0RF Continued diltiazem HCl 120 mg capsule,extended release 24hr 120 mg PO DAILY dexamethasone 0.5 mg tablet 0.5 mg PO DAILY metoprolol tartrate 25 mg tablet 25 mg PO BID atorvastatin 40 mg tablet 40 mg PO DAILY lansoprazole [Prevacid] 30 mg capsule,delayed release(DR/EC) 30 mg PO BID Print Language: Luxembourger Forms: Portal Instructions Follow Up Appointments: F/u with PCP in one week
--- NOTE | 2024-05-24 10:01 | SWNOTE1 ---
Pt is medically stable for discharge today and will be going to [facility] skilled. EAN to set up transport.
--- NOTE | 2024-05-24 10:03 | CM.NOTE ---
Rounds made with Dr. Denise. Dr. Denise discussed discharge plan of going to detention facility on po antibiotics today. Jose verbalized understanding. Plan is for discharge today to SNF
--- NOTE | 2024-05-24 10:07 | SWNOTE1 ---
EAN called trips and set up transport for 11-11:30. EAN notified nurse, patient, and [facility]. EAN sent over dc med rec, dc summary, labs, vitals, and nursing notes to Megan at [facility]. EAN completed HENS online and took packet to the floor. Pt is going skilled at [facility].
--- NOTE | 2024-05-24 10:18 | REH.PTDLY ---
Physical Therapy Daily Note PT Daily Note/Assess Start: 05/22/24 10:34 Freq: Status: Active Protocol: Document 05/24/24 10:07 EDGAR (Rec: 05/24/24 10:17 EDGAR [id number]) Physical Therapy Daily Note/Assessment Time In 09:49 Time Out 10:03 Subjective Pt up in chair, just finished eating breakfast. Reports he gets to leave at some point today to go to rehab at [facility]. 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 Therapeutic Exercise 5 Minutes (minutes) Therapeutic Exercise 0 Units Therapeutic Exercise Instructed in seated B LE LAQ, marching, hip add Treatment squeezes, AP, and hip abd step outs 15x ea for improved strength for ease of mobility. Pt reports hip abd is tiring. Therapeutic Activity 8 Minutes (minutes) Therapeutic Activity 1 Units Therapeutic Activity sit to stand transfers 5x in a row with pt using arms Comments to push off from chair, SBA. Standing in place with feet shoulder width apart, pt able to perform 10 arm raises. Gait training with RW with improved tolerance and no complaints of increasing pain in L LE, but still ambulates with step to gait pattern. Pt ambulates 90 feet. Total Therapy 13 Minutes Total Physical 1 Therapy Units Daily Note Summary Overall pt has improved gait compared to Tuesday's visit, but still would benefit from rehab for pt to perform step thru gait pattern and improve strength prior to returning home.
--- NOTE | 2024-05-24 10:29 | SWNOTE1 ---
SW spoke to nurse and pt's daughter called and would like to transport. SW called and cancelled trips and let Megan at [facility] know.
--- NOTE | 2024-05-24 11:04 | PC.NURSE ---
Attempted to call report to [facility] at 1025.. no answer. Called to give report again at 1100.
== END 2024-05-24 11:15 | DRG 603 ==
LOC: ER 18:39 → MS 05-21 06:01
PROVIDERS: Registered Nurse; Admitting Provider Internal Medicine; Emergency Provider Emergency Medicine; PCP Family Medicine; Visit Provider Internal Medicine
DX: L03.116 Cellulitis of left lower limb (principal); D84.821 Immunodeficiency due to drugs; T38.0X5A Adverse effect of glucocorticoids and synthetic analogues, initial encounter; I89.0 Lymphedema, not elsewhere classified; E25.0 Congenital adrenogenital disorders associated with enzyme deficiency; E66.01 Morbid (severe) obesity due to excess calories; Z79.52 Long term (current) use of systemic steroids; Z79.899 Other long term (current) drug therapy; Z68.37 Body mass index [BMI] 37.0-37.9, adult
CPT/HCPCS: 36415; 73590; 73701; 80053; 80202; 83605; 83735; 85007; 85025; 85027; 85652; 86140; 87040; 93005; 93971; 94761; 96374; 97110; 97162; 97165; 97530; 99285; 99406; G0378; J0295; J1100; J2543; J3370; Q9967

== ENCOUNTER 2024-07-03 12:51 | Outpatient (RCR) | payer MEDICARE, OTHER, SELFPAY | END 2024-09-18 15:55 | disposition home or self-care (01) | LOC: OT 12:51 | PROVIDERS: PCP Family Medicine; Visit Provider Family Medicine | DX: I89.0 Lymphedema, not elsewhere classified (principal) | CPT/HCPCS: 97140; 97167; 97535 ==

== ENCOUNTER 2024-09-20 10:19 | Outpatient (RCR) | payer MEDICARE, OTHER, SELFPAY | END 2024-12-20 06:58 | disposition home or self-care (01) | LOC: PT 10:19 | PROVIDERS: PCP Family Medicine; Visit Provider Family Medicine | DX: R26.89 Other abnormalities of gait and mobility (principal); R29.898 Other symptoms and signs involving the musculoskeletal system | CPT/HCPCS: 97110; 97112; 97162; 97530 ==

== ENCOUNTER 2024-09-21 20:48 | Emergency (ER) | payer MEDICARE, OTHER, SELFPAY ==
[2024-09-21 20:51] VITALS: BP 125/84; PULSE 86; TEMP 36.9; O2SAT 97; BMI 36.0
--- NOTE | 2024-09-21 21:12 | ED.FALL1 ---
HPI HPI - Fall General Chief Complaint: Fall Stated Complaint: FALL Time Seen by Provider: 09/21/24 20:48 Source: patient Mode of arrival: ambulance Limitations: no limitations History of Present Illness HPI Narrative: cc - fall, bleeding right 5th finger and right forearm Pt was using his walker and going up stairs when he tripped and fell forward, catching the right hand and right forearm on the railing. He denied hitting his head but maybe my face a little . No headache, neck pain, back pain or other bony pain. He was able to get himself up without difficulty after the fall. He called EMS because the bleeding on my arm wouldn't stop. He does not take blood thinners. Related Data Home Medications ?Medication ?Instructions ?Recorded ?Confirmed atorvastatin 40 mg tablet 40 mg PO DAILY 05/20/24 05/20/24 dexamethasone 0.5 mg tablet 0.5 mg PO DAILY 05/20/24 05/20/24 diltiazem HCl 120 mg 120 mg PO DAILY 05/20/24 05/20/24 capsule,extended release 24 hr lansoprazole 30 mg capsule,delayed 30 mg PO BID 05/20/24 05/20/24 release (Prevacid) metoprolol tartrate 25 mg tablet 25 mg PO BID 05/20/24 05/20/24 Previous Rx's ?Medication ?Instructions ?Recorded amoxicillin 875 mg-potassium 1 tab PO BID #14 tabs 05/24/24 clavulanate 125 mg tablet sulfamethoxazole 800 1 tab PO BID #14 tabs 05/24/24 mg-trimethoprim 160 mg tablet (Bactrim DS) Allergies Allergy/AdvReac Type Severity Reaction Status Date / Time No Known Drug Allergies Allergy Verified 09/21/24 20:55 Opioid HPI Opioid Management Most Recent Pain and Opioid Data: Last Pain Scale 5 05/24/24 08:32 05/24/24 Last ORT Total Score 0 05/20/24 19:55 05/20/24 Last ORT Risk Category Low Risk 05/20/24 19:55 05/20/24 [facility] PFS Medical History (Updated 09/21/24 @ 21:17 by Tyrone Rahman) 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 - Immunodeficiency due to drugs (ICD-10) ?T38.0X5A - Adverse effect of glucocorticoids and synthetic analogues, initial encounter (ICD-10) ?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 (ICD-10) Morbid obesity ?E66.01 - Morbid (severe) obesity due to excess calories (ICD-10) Lymphedema ?I89.0 - Lymphedema, not elsewhere classified (ICD-10) Congenital adrenal hyperplasia ?E25.0 - 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 (ICD-10) Decreased ambulation status ?Z74.09 - Other reduced mobility (ICD-10) Arthritis of hand ?M19.049 - Primary osteoarthritis, unspecified hand (ICD-10) HLD (hyperlipidemia) ?E78.5 - Hyperlipidemia, unspecified (ICD-10) Sleep apnea ?G47.30 - Sleep apnea, unspecified (ICD-10) Supraventricular tachycardia ?I47.10 - Supraventricular tachycardia, unspecified (ICD-10) High cholesterol ?E78.00 - Pure hypercholesterolemia, unspecified (ICD-10) Acquired lymphedema of leg ?I89.0 - Lymphedema, not elsewhere classified (ICD-10) Family History (Updated 05/20/24 @ 20:03 by Marisol Zimemrman) Father Family history of cancer Family history of hypertension Mother Family history of hypertension Sister Family history of myocardial infarction Social History (Updated 05/20/24 @ 20:04 by Marisol Zimmerman) Within the past year, how often did you have a drink containing alcohol: never Score interpretation: A score less than 4 is consistent with normal alcohol consumption. Smoking status: Current every day smoker Non-prescribed substance use: denies use Previous occupational history: retired Highest level of school completed/degree received: high school graduate Are you now , , , , never or living with a partner: In a typical week, how many times do you talk on the telephone with family, friends, or neighbors: 3 or more times per week How often do you get together with friends or relatives: 3 or more times per week How often do you attend sikhism or moravian services: never Little interest or pleasure in doing things: not at all Feeling down, depressed, or hopeless: not at all Feel stressed/tense/nervous/anxious/difficulty sleeping: not at all Do you think of yourself as: straight/heterosexual Gender Identity: male Exam Narrative Exam Narrative: Nurses note and vital signs reviewed and patient is not hypoxic. afebrile General: The patient appears well and in no apparent distress. Patient is resting comfortably on cart. GCS = 15. Skin: Warm, dry, no pallor noted. See below regarding the skin tears and abrasions. Head: Normocephalic, atraumatic Neck: Supple, trachea mid-line, no tenderness, no lymphadenopathy. Full ROM and no cervical spinal tenderness. The patient has no step-offs or crepitus noted Eyes: PERRLA, EOMI ENT: TM's clear, no hemotympanum detected, no blood in posterior oropharynx Cardiovascular: Regular Rate and Rhythm Respiratory: Patient is in no distress, no accessory muscle use, lungs are clear to auscultation, no wheezing, rales or rhonchi Chest Wall: no tenderness, no flail chest, contusion, abrasion, or signs of trauma. Back: No thoracic vertebral or lumbar vertebral tenderness to palpation. Negative straight leg raise bilaterally. No ecchymosis, abrasions, lacerations noted. Musculoskeletal: Blood blister and small area of abrasion noted to the right fifth finger. He also has a skin tear to the volar right forearm. No sign of long bone fracture, no bony tenderness to any of the 4 extremities, no right hand, wrist or forearm swelling. Moves all four extremities in all modalities with 5/5 strength. GI: No tenderness to palpation. No rebound, guarding, or rigidity noted. 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 Psychiatric: Cooperative Constitutional Vital Signs, click to edit/add: Last Vital Signs Temp 98.4 F 09/21/24 20:51 Pulse 86 09/21/24 20:51 Resp 19 09/21/24 20:51 BP 125/84 09/21/24 20:51 Pulse Ox 97 09/21/24 20:51 O2 Del Method Room Air 09/21/24 20:51 Course Vital Signs Vital signs: Vital Signs Temperature 98.4 F 09/21/24 20:51 Pulse Rate 86 09/21/24 20:51 Respiratory Rate 19 09/21/24 20:51 Blood Pressure 125/84 09/21/24 20:51 Pulse Oximetry 97 09/21/24 20:51 Oxygen Delivery Method Room Air 09/21/24 20:51 Temperature 98.4 F 09/21/24 20:51 Pulse Rate 86 09/21/24 20:51 Respiratory Rate 19 09/21/24 20:51 Blood Pressure 125/84 09/21/24 20:51 Pulse Oximetry 97 09/21/24 20:51 Oxygen Delivery Method Room Air 09/21/24 20:51 MDM - Fall MDM Narrative Medical decision making narrative: No sign of bony fracture, no head or neck injury, injuries appear limited to the abrasion and skin tear to the right upper extremity as detailed above. The patient's wounds were cleaned and dressed with bacitracin and dry sterile dressing. His tetanus was updated. He was given reassurance and discharged home. Discharge Plan Discharge Chief Complaint: Fall Clinical Impression: Abrasion of hand, right, Skin tear of right forearm without complication Patient Disposition: Home, Self-Care Time of Disposition Decision: 21:17 Prescriptions / Home Meds: No Action diltiazem HCl 120 mg capsule,extended release 24hr 120 mg PO DAILY dexamethasone 0.5 mg tablet 0.5 mg PO DAILY metoprolol tartrate 25 mg tablet 25 mg PO BID atorvastatin 40 mg tablet 40 mg PO DAILY lansoprazole [Prevacid] 30 mg capsule,delayed release(DR/EC) 30 mg PO BID sulfamethoxazole-trimethoprim [Bactrim DS] 800-160 mg tablet 1 tab PO BID Qty: 14 0RF amoxicillin-pot clavulanate 875-125 mg tablet 1 tab PO BID Qty: 14 0RF Print Language: Occitan Instructions: Abrasion (ED), Skin Tear (ED) Referrals: Christina Arteaga MD [Primary Care Provider] - 1 week
[2024-09-21] MEDS: BACITRACIN 0.9 GM PACKET 1 PACKET TOPICAL (21:45)
[2024-09-21] MEDS: ADACEL DIPH,PERTUSS(ACELL),TET VAC/PF 0.5 ML ADULT SYRINGE IM (21:46)
== END 2024-09-21 22:42 | disposition home or self-care (01) ==
PROVIDERS: Emergency Provider Emergency Medicine; PCP Family Medicine
DX: S51.811A Laceration without foreign body of right forearm, initial encounter (principal); S60.416A Abrasion of right little finger, initial encounter; W10.8XXA Fall (on) (from) other stairs and steps, initial encounter; Z23 Encounter for immunization; F17.200 Nicotine dependence, unspecified, uncomplicated
CPT/HCPCS: 90471; 90715; 99283

== ENCOUNTER 2025-01-18 15:52 | Outpatient (RCR) | payer MEDICARE, OTHER, SELFPAY | END 2025-01-24 16:47 | disposition home or self-care (01) | LOC: PT 15:52 | PROVIDERS: PCP Family Medicine; Visit Provider Family Medicine | DX: M54.50 Low back pain, unspecified (principal); G89.29 Other chronic pain | CPT/HCPCS: 97110; 97162; 97530 ==

== ENCOUNTER 2025-01-23 14:04 | Outpatient (OUT) | payer MEDICARE, OTHER, SELFPAY ==
--- NOTE | 2025-01-23 14:09 | XR_ITS ---
[place] [id number] Patient Name: NORY DSOUZA MRN: [id number] date: 1955 Sex: M Assigned Patient Location: [facility] Current Patient Location: [facility] Accession/Order Number: [id number] Exam Date: 01/23/2025 14:20 Report Date: 01/23/2025 20:36 At the request of: DOUG AMBROSE MD Procedure: XR lumbar spine min 4V 4 views Lumbar Spinestanding position HISTORY: Acute lumbar pain. Fell. COMPARISON: None POSTSURGICAL CHANGES: None BONY ALIGNMENT: Straightening. Mild scoliosis. HYPERMOBILITY:No bending imaging. LISTHESIS:Mild multilevel listhesis FRACTURE: Limited assessment. No obvious fracture DEGENERATIVE CHANGES: Extensive multilevel spondylosis. Extensive facet degeneration. SOFT TISSUES: Unremarkable BONY MINERALIZATION:Decreased XR/XR lumbar spine min 4V IMPRESSION: Extensive degeneration greatest in the lower lumbar facets. Mild scoliosis. Mild degenerative listhesis. Impression dictated by: Holden Snyder M.D. 01/23/2025 8:36 PM Dictation Location: [employer] Electronically authenticated by: [id number] Y Date: 01/23/2025 20:36
--- OUTSIDE RECORDS SUMMARY | 2025-01-23 15:38 | XMS_ITS | CCD ---
Author Organization [facility] Care Team Providers Care 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 Name Role Phone Doug Arteaga Primary Care Provider [phone] DOUG ARTEAGA Primary Care Physician Doug Arteaga MD. Primary Care Provider [phone] LIZZIE Manzo, DR DASILVA Attending Unavailable HAY [...] Unavailable MISC, DR COOPER Primary Care Unavailable Doug Arteaga MD Primary Care Provider Robson Cartwright Attending Unavailable OJUKWU, Mbanefo Admitting Unavailable OJUKWU, Mbanefo Attending Unavailable [place], Samantha Consulting Unavailable Denver, Samantha Consulting Unavailable Denver, Samantha Consulting Unavailable [place], Samantha Consulting Unavailable [place], Samantha Consulting Unavailable [place], Samantha Consulting Unavailable [place], Samantha Consulting Unavailable [place], Samantha Consulting Unavailable [place], Samantha Consulting Unavailable OJUKWU, Mbanefo Attending Unavailable KirnHiram pastrana Consulting Unavailable OJUKWU, Mbanefo Admitting Unavailable Hiram Sunshine Consulting Unavailable Hiram Sunshine Consulting Unavailable Doug Arteaga MD Primary Care Provider SIOMARA BROWN Attending UnavailSIOMARA Jordan Attending UnavailSIOMARA Jordan Attending UnavailDOUG Bull Attending Unavailable VERHOFF, DOUG L Referring Unavailable [...] tablet by mouth once daily 30 tablet 12/11/2020 Active Start: 12-27-2019 take 1 tablet by yves th once daily amLODIPine (NORVASC) 2.5 MG tablet Take 1 tablet by mouth daily 30 tablet 11 12/27/2019 Active aspirin 81 mg delayed release [...] 0 Active atorvastatin 40 mg oral tablet (14 sources) HMG-CoA Reductase Inhibitor Start: 06-14-2024 take 1 tablet by mouth once daily atorvastatin (LIPITOR) 40 MG tablet TAKE 1 TABLET BY MOUTH EVERY DAY 30 tablet 5 06/14/2024 Active Start: 05-16-2024 take 1 tablet by yves once daily atorvastatin 40 mg Tab 40 mg = 1 tab(s), Oral, Daily, # 30 tab(s), Refills(s) 0, Pharmacy: [facility]/pharmacy #[id number], 168, cm, 05/15/24 15:01:00 EST, Height/Length [...] day(s), # 14 cap(s), Refills(s) 0, [facility]: [id number], 170, cm, 11/27/22 16:29:00 EDT, Height/Length Dosing, [...] (DECADRON) 0.5 MG tablet Indications: Adrenal insufficiency Take 1 tablet by mouth daily 90 tablet 3 08/30/2024 Active Start: 02-20-2010 take 1 tablet by yves th once daily dexamethasone 0.5 mg oral tablet 0.5 mg = 1 tab(s), Oral, Daily, Refills(s) 0 Start Date: 02/20/10 Status: Ordered 24 hr dilTIAZem hydrochloride 120 mg extended release oral capsule (15 sources) Calcium Channel Aleta Start: 02-07-2023 take 1 capsule by mouth once daily dilTIAZem (CARDIZEM CD) 120 MG extended release capsule Take 1 capsule by mouth daily 90 capsule 3 08/30/2024 Active DilTIAZem (Eqv-Cardizem CD) 120 mg/24 hours oral capsule, extended release (1 source) Start: 05-15-2024 DilTIAZem (Eqv-Cardizem CD) 120 mg/24 hours oral capsule, extended release See Instructions, Refills(s) 0 Start Date: 05/15/24 Status: Ordered imiquimod 50 mg/ml topical cream (5 sources) Start: 10-11-2024 End: 01-09-2025 imiquimod (Aldara) 5 % cream Indications: Plantar warts Apply 1 packet topically at bedtime And cover with tape/bandaid 30 packet 2 10/11/2024 01/09/2025 Active lansoprazole 30 mg delayed release oral [...] oral tablet (20 sources) beta-Adrenergic Aleta Start: 08-30-2024 take 1 tablet by mouth twice daily metoprolol tartrate (LOPRESSOR) 25 MG tablet Take 1 tablet by mouth 2 times daily 360 tablet 3 08/30/2024 Active Start: 11-27-2022 Metoprolol tar trate 25 mg Tab See Instructions, 2 tabs in the morning and evening and 1 tab in the afternoon, # 20 tab(s), Refills(s) 0, Pharmacy: [facility] #[id number], 170, cm, 11/27/22 16:29:00 EDT, Height/Length Dosing, 92.4, kg, 11/27/22 16:29:00 EDT, Weight Dosing Start Date: 11/27/22 Status: Ordered Start: 11-27-2022 End: 11-27-2022 take 1 tablet by mouth in the morning metoprolol tartrate (Lopressor) 25 MG tablet Take 1 tablet by mouth in the morning and 1 tablet before bedtime. 11/27/2022 Active Start: 05-15-2022 End: 05-16-2022 take 1 tablet [...] QID, # 120 tab(s), Refills(s) 0, Pharmacy: [address], 170, cm, 08/30/21 1:31:00 EDT, Height/Length [...] tablet (20 sources) HMG-CoA Reductase Inhibitor Start: 08-01-2023 take 1 tablet by mouth once daily pravastatin (Pravachol) 40 MG tablet Take 1 tablet by mouth Daily 08/01/2023 Active Start: 05-17-2016 take 1 tablet [...] capsule 0 03/24/2015 04/04/2019 Discontinued (LIST CLEANUP) furosemide 20 mg oral tablet (4 sources) Loop Diuretic Start: 06-29-2023 End: 08-22-2024 take 1 tablet by mouth once daily furosemide (Lasix) 20 MG tablet Take 1 tablet by mouth Daily 06/29/2023 08/22/2024 Discontinued (Therapy completed) iopamidol (ISOVUE-370) 76 % injection 100 mL [...] tachycardia; Translations: [Supraventricular tachycardia] Onset: 08-31-2021 Chronic Chronic ulcer of skin (2 sources) Ulcer of big toe; Translations: [Non-pressure chronic ulcer of other part of left foot limited to breakdown of skin] 08-22-2024 Chronic Coagulation and hemorrhagic disorders (9 sources) Thrombocytopenic disorder; Translations: [Thrombocytopenia, unspecified] Onset: 08-30-2021 Resolved: 05-02-2023 Chronic Coronary atherosclerosis and other heart disease (2 sources) Coronary arteriosclerosis; Translations: [Atherosclerotic heart disease of morongo coronary artery without angina pectoris] Onset: 09-24-2015 [...] prostatic hypertrophy with outflow obstruction 05-03-2019 Chronic Mycoses (1 source) Onychomycosis; Translations: [Tinea unguium] 08-22-2024 Episodic Nonspecific chest pain (1 source) Chest pain; Translations: [Chest pain, unspecified] Onset: 05-15-2022 Episodic Other connective tissue disease (5 sources) Pain in left foot; Translations: [Pain in left foot] 08-22-2024 Episodic Other diseases of veins and lymphatics (4 sources) Lymphedema of lower extremity; Translations: [Lymphedema, not elsewhere classified] Onset: 06-27-2024 06-27-2024 Chronic Other ear and sense organ disorders (3 sources) Unspecified hearing loss, right ear; Translations: [UNSPECIFIED HEARING LOSS RIGHT EAR] Onset: 02-11-2022 Chronic Other endocrine disorders (20 sources) Hypoadrenalism; Translations: [Unspecified adrenocortical insufficiency] Onset: 03-19-2013 03-19-2013 Chronic Other endocrine disorders (8 sources) Congenital adrenal hyperplasia; Translations: [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] Onset: 08-30-2021 Chronic Other nervous system disorders (1 source) Idiopathic progressive polyneuropathy; Translations: [Idiopathic progressive neuropathy] 08-22-2024 Chronic Other nervous system disorders (3 sources) Other chronic pain; Translations: [Other chronic pain] Onset: 06-25-2024 Chronic Other nervous system disorders (1 source) Paresthesia [...] screening for malignant neoplasm of prostate] Onset: 11-12-2024 Episodic Other skin disorders (7 sources) Actinic keratosis 05-03-2019 Episodic Residual codes; unclassified (5 sources) Obstructive sleep apnea syndrome; Translations: [Obstructive sleep apnea (adult) (pediatric)] Onset: 08-30-2021 Chronic Residual codes; unclassified (1 source) Daytime somnolence; Translations: [Other hypersomnia] 10-17-2023 Chronic Residual codes; unclassified (1 source) Sleep apnea; Translations: [Other sleep apnea] 10-17-2023 Chronic Residual codes; unclassified (7 sources) Family history of prostate cancer 05-08-2019 Episodic Residual codes; unclassified (7 sources) H/O: anticoagulant therapy 05-03-2019 Episodic Residual codes; unclassified (1 source) Edema of left lower limb; Translations: [Localized edema] 03-23-2024 Episodic Screening and history of mental health and substance abuse codes (1 source) Tobacco use and exposure - finding; Translations: [Personal history of nicotine dependence] 11-02-2023 Episodic Substance-related disorders (9 sources) Smoker; Translations: [Nicotine dependence, cigarettes, uncomplicated] Onset: 06-28-2022 05-08-2019 Chronic Transient cerebral ischemia (5 sources) Transient cerebral ischemic attack, unspecified; Translations: [G45.9] Onset: 05-15-2024 Chronic Unclassified (2 sources) Low back pain, unspecified; Translations: [Low back pain, unspecified] Onset: 06-25-2024 Urinary tract infections (8 sources) Urinary tract infectious disease; Translations: [Urinary tract infection, site not specified] Onset: 11-27-2022 05-08-2019 Episodic Viral infection (4 sources) Verruca plantaris; Translations: [Plantar wart] 10-11-2024 Episodic Past or Other Problems Problem Classification Problem Date Documented Da te Episodic/Chronic Cancer of prostate (7 sources) History of malignant neoplasm of prostate Resolved: 05-03-2019 05-03-2019 Episodic Cardiac dysrhythmias (11 sources) Tachycardia; Translations: [Palpitations] Onset: 09-24-2015 Episodic Conditions associated with dizziness or vertigo (4 sources) Dizziness and giddiness; Translations: [DIZZINESS AND GIDDINESS] Onset: 06-26-2022 Episodic Other aftercare (1 source) Other terminal manager (current) drug therapy; Translations: [OTH LONG-TERM CURRENT DRUG THERAPY] Onset: 06-28-2022 Episodic Other aftercare (1 source) terminal manager (current) use of aspirin; Translations: [MAINS[employer]ING TORQUE TESTER CURRENT USE OF ASPIRIN] Onset: 02-13-2022 Episodic Other connective tissue disease (1 source) Other specified soft tissue disorders; Translations: [Other specified soft tissue disorders] Onset: 11-16-2023 Episodic Other ear and sense organ disorders (1 source) Impacted cerumen, bilateral; Translations: [IMPACTED CERUMEN BILATERAL] Onset: 02-13-2022 Episodic Other lower respiratory disease (1 source) Shortness of breath; Translations: [Shortness of breath] Onset: 03-23-2024 Episodic Other non-epithelial cancer of skin (9 sources) Squamous cell carcinoma of skin; Translations: [Squamous cell carcinoma of skin, unspecified] Onset: 03-05-2021 03-05-2021 Episodic Other non-traumatic joint disorders (6 sources) Pain in right knee; Translations: [Pain in joint, lower leg] Onset: 06-25-2024 06-25-2024 Episodic Other skin disorders (1 source) Disorder of skin of upper limb; Translations: [Skin lesion of left arm] Episodic Residual codes; unclassified (2 sources) Harmful pattern of use of nicotine; Translations: [Tobacco use] Onset: 09-24-2015 09-24-2015 Episodic Residual codes; unclassified (1 source) Localized edema; Translations: [Localized edema] Onset: 03-23-2024 Episodic Skin and subcutaneous tissue infections (1 source) Cellulitis of left lower limb; Translations: [Cellulitis of left lower limb] Onset: 03-23-2024 Episodic Spondylosis; intervertebral disc disorders; other back problems (5 sources) Chronic low back pain; Translations: [Chronic bilateral low back pain without sciatica] Onset: 06-27-2024 06-27-2024 Episodic Unclassified (16 sources) Onset: 04-16-2020 Resolved: 10-28-2022 10-28-2022 Unclassified (1 source) Low back pain, unspecified; Translations: [Low back pain, unspecified] Onset: 06-25-2024 Results Test Name Value Interpretation Reference Range Facility CBC with Auto Differentialon 11-12-2024 Basophils (Bld) [#/Vol] 0.02 10*3/uL [facility] Basophils/100 WBC (Bld) 0 % 0 - 2 % [facility] Eosinophils (Bld) [#/Vol] 0.02 10*3/uL [facility] Eosinophils/100 WBC (Bld) 0 % 0 - 5 % [facility] Erythrocyte distribution width (RBC) [Ratio] 14 % 12.1 - 15.2 % [facility] Hematocrit (Bld) [Volume fraction] 39.5 % Low 41.0 - 53.0 % [facility] Hemoglobin (Bld) [Mass/Vol] 12.6 g/dL Low 13.5 - 17.5 g/dL [facility] Immature granulocytes (Bld) [#/Vol] 0.07 10*3/uL [facility] Immature granulocytes/100 WBC (Bld) 1 % 0 - 5 % [facility] Interpretation and review of laboratory results Abnormal [facility] Lymphocytes/100 WBC (Bld) 38 % 13 - 44 % [facility] Lymphocytes/100 WBC (Bld) 2.31 % [facility] MCH (RBC) [Entitic mass] 34 pg 26.0 - 34.0 pg [facility] MCHC (RBC) [Mass/Vol] 31.9 g/dL 31.0 - 37.0 g/dL [facility] MCV (RBC) [Entitic vol] 106.5 fL High 80.0 - 100.0 fL [facility] Monocytes/100 WBC (Bld) 17 % High 5 - 9 % [facility] Monocytes/100 WBC (Bld) 1.03 % High [facility] Morphology Mike (Bld) [Interp] SLIGHT MACROCYTOSIS [facility] Morphology Mike (Bld) [Interp] Decreased Platelets [facility] Neutrophils/100 WBC (Bld) 43 % 39 - 75 % [facility] Platelet mean volume (Bld) [Entitic vol] 12.1 fL High 6.0 - 12.0 fL [facility] Platelets (Bld) [#/Vol] 82 10*3/uL Low [facility] RBC (Bld) [#/Vol] 3.71 10*6/uL Low 4.50 - 5.9 0 m/uL [facility] Segmented neutrophils/100 WBC (Bld) 2.57 % [facility] WBC other (Bld) [#/Vol] 6 [facility] CBC with Diffon 11-12-2024 Morphology Mike (Bld) [Interp] SLIGHT Normal [facility] Comment on above: Result Comment: MACR OCYTOSIS Decreased Platelets Performed By: #### P SAS, LIPR #### [facility] [address] [place] [address] Web Systems Developer: Sudhir Cheng MD #### CDP, CP #### [facility] [address] [place] [address] Web Systems Developer: Juanjose Osorio MD Abs. Basophil 0.02 k/uL Normal 0.00-0.20 [facility] Comment on above: Performed By: #### P SAS, LIPR #### [address] [id number] Web Systems Developer: Sudhir Cheng MD #### CDP, CP #### [facility] [address] [place] [address] Web Systems Developer: Juanjose Osorio MD Abs.Imm.Granulocyte 0.07 k/uL Normal 0.00-0.30 [facility] Comment on above: Performed By: #### P SAS, LIPR #### [address] [id number] Web Systems Developer: Sudhir Cheng MD #### CDP, CP #### [facility] [address] [place] [id number] Web Systems Developer: Juanjose Osorio MD Abs.Neutrophil (Seg) 2.57 k/uL Normal 2.1-6.5 [facility] Comment on above: Performed By: #### P SAS, LIPR #### [address] [id number] Web Systems Developer: Sudhir Cheng MD #### CDP, CP #### [facility] [address] [place] [address] Web Systems Developer: Juanjose Osorio MD Basophils/100 WBC (Bld) 0 % Normal 0-2 [facility] Comment on above: Performed By: #### P SAS, LIPR #### [address] [address] Web Systems Developer: Sudhir Cheng MD #### CDP, CP #### [facility] [address] [place] [address] Web Systems Developer: Juanjose Osorio MD Eosinophils (Bld) [#/Vol] 0.02 10*3/uL Normal 0.00-0.40 [facility] Comment on above: Performed By: #### P SAS, LIPR #### [address] [id number] Web Systems Developer: Sudhir Cheng MD #### CDP, CP #### [facility] [address] [place] [address] Web Systems Developer: Juanjose Osorio MD Eosinophils/100 WBC (Bld) 0 % Normal 0-5 [facility] Comment on above: Performed By: #### P SAS, LIPR #### [address] [id number] Web Systems Developer: Sudhir Cheng MD #### CDP, CP #### [facility] [address] [place] [address] Web Systems Developer: Juanjose Osorio MD Erythrocyte distribution width (RBC) [Ratio] 14.0 % Normal 12.1-15.2 [facility] Comment on above: Performed By: #### P SAS, LIPR #### [address] [id number] Web Systems Developer: Sudhir Cheng MD #### CDP, CP #### [facility] [address] [place] [address] Web Systems Developer: Juanjose Osorio MD Hematocrit (Bld) [Volume fraction] 39.5 % Low 41.0-53.0 [facility] Comment on above: Performed By: #### P SAS, LIPR #### [address] [id number] Web Systems Developer: Sudhir Cheng MD #### CDP, CP #### [facility] [address] [place] [address] Web Systems Developer: Juanjose Osorio MD Hemoglobin (Bld) [Mass/Vol] 12.6 g/dL Low 13.5-17.5 [facility] Comment on above: Performed By: #### P SAS, LIPR #### [address] [id number] Web Systems Developer: Sudhir Cheng MD #### CDP, CP #### [facility] [address] [place] [address] Web Systems Developer: Juanjose Osorio MD Immature granulocytes/100 WBC (Bld) 1 % Normal 0-5 [facility] Comment on above: Performed By: #### P SAS, LIPR #### [address] [id number] Web Systems Developer: Sudhir Cheng MD #### CDP, CP #### [facility] [address] [place] [address] Web Systems Developer: Juanjose Osorio MD Lymphocytes (Bld) [#/Vol] 2.31 10*3/uL Normal 1.00-4.80 [facility] Comment on above: Performed By: #### P SAS, LIPR #### [address] [id number] Web Systems Developer: Sudhir Cheng MD #### CDP, CP #### [facility] [address] [place] [address] Web Systems Developer: Juanjose Osorio MD Lymphocytes/100 WBC (Bld) 38 % Normal 13-44 [facility] Comment on above: Performed By: #### P SAS, LIPR #### [address] [address] Web Systems Developer: Sudhir Cheng MD #### CDP, CP #### [facility] [address] [place] [address] Web Systems Developer: Juanjose Osorio MD MCH (RBC) [Entitic mass] 34.0 pg Normal 26.0-34.0 [facility] Comment on above: Performed By: #### P SAS, LIPR #### [address] [id number] Web Systems Developer: Sudhir Cheng MD #### CDP, CP #### [facility] [address] [place] [address] Web Systems Developer: Juanjose Osorio MD MCHC (RBC) [Mass/Vol] 31.9 g/dL Normal 31.0-37.0 [facility] Comment on above: Performed By: #### P SAS, LIPR #### [address] [id number] Web Systems Developer: Sudhir Cheng MD #### CDP, CP #### [facility] [address] [place] [address] Web Systems Developer: Juanjose Osorio MD MCV (RBC) [Entitic vol] 106.5 fL High 80.0-100.0 [facility] Comment on above: Performed By: #### P SAS, LIPR #### [address] [id number] Web Systems Developer: Sudhir Cheng MD #### CDP, CP #### [facility] [address] [place] [address] Web Systems Developer: Juanjose Osorio MD Monocytes (Bld) [#/Vol] 1.03 10*3/uL High 0.00-1.00 [facility] Comment on above: Performed By: #### P SAS, LIPR #### [address] [id number] Web Systems Developer: Sudhir Cheng MD #### CDP, CP #### [facility] [address] [place] [address] Web Systems Developer: Juanjose Osorio MD Monocytes/100 WBC (Bld) 17 % High 5-9 [facility] Comment on above: Performed By: #### P SAS, LIPR #### [address] [id number] Web Systems Developer: Sudhir Cheng MD #### CDP, CP #### [facility] [address] [place], [place] [id number] Web Systems Developer: Juanjose Osorio MD Neutrophil (Seg) 43 % Normal 39-75 [facility] Comment on above: Performed By: #### P SAS, LIPR #### [address] [place], [place] 8000708 Web Systems Developer: Sudhir Cheng MD #### CDP, CP #### [facility] [address] [place] [address] Web Systems Developer: Juanjose Osorio MD Platelet mean volume (Bld) [Entitic vol] 12.1 fL High 6.0-12.0 [facility] Comment on above: Performed By: #### P SAS, LIPR #### [address] [address] Web Systems Developer: Sudhir Cheng MD #### CDP, CP #### [facility] [address] [place] [address] Web Systems Developer: Juanjose Osorio MD Platelets (Bld) [#/Vol] 82 10*3/uL Low 140-450 [facility] Comment on above: Performed By: #### P SAS, LIPR #### [address] [id number] Web Systems Developer: Sudhir Cheng MD #### CDP, CP #### [facility] [address] [place] [address] Web Systems Developer: Juanjose Osorio MD RBC (Bld) [#/Vol] 3.71 10*6/uL Low 4.50-5.90 [facility] Comment on above: Performed By: #### P SAS, LIPR #### [address] [id number] Web Systems Developer: Sudhir Cheng MD #### CDP, CP #### [facility] [address] [place], [place] [id number] Web Systems Developer: Juanjose Osorio MD WBC (Bld) [#/Vol] 6.0 10*3/uL Normal 3.5-11.0 [facility] Comment on above: Performed By: #### P SAS, LIPR #### [address] [id number] Web Systems Developer: Sudhir Cheng MD #### CDP, CP #### [facility] [address] [place], [place] [id number] Web Systems Developer: Juanjose Osorio MD Comp Metabolic Profon 2024 Albumin [Mass/Vol] 3.9 g/dL Normal 3.5-5.2 [facility] Comment on above: Performed By: #### P SAS, LIPR #### [address] [address] Web Systems Developer: Sudhir Cheng MD #### CDP, CP #### [facility] [address] [place] [address] Web Systems Developer: Juanjose Osorio MD Albumin/Glob Ratio 1.6 Normal 1.0-2.5 [facility] Comment on above: Performed By: #### P SAS, LIPR #### [address] [address] Web Systems Developer: Sudhri Cheng MD #### CDP, CP #### [facility] [address] [place] [address] Web Systems Developer: Juanjose Osorio MD Alkaline Phos 85 U/L Normal 40-129 [facility] Comment on above: Performed By: #### P SAS, LIPR #### [address] [address] Web Systems Developer: Sudhir Cheng MD #### CDP, CP #### [facility] [address] [place], [place] [id number] Web Systems Developer: Juanjose Osorio MD ALT [Catalytic activity/Vol] 13 U/L Normal 5-41 [facility] Comment on above: Performed By: #### P SAS, LIPR #### [address] [place] [address] Web Systems Developer: Sudhir Cheng MD #### CDP, CP #### [facility] [address] [place], [place] [id number] Web Systems Developer: Juanjose Osorio MD Anion gap [Moles/Vol] 6 mmol/L Low 9-17 [facility] Comment on above: Performed By: #### P SAS, LIPR #### [address] [id number] Web Systems Developer: Sudhir Cheng MD #### CDP, CP #### [facility] [address] [place], [place] [phone] Web Systems Developer: Juanjose Osorio MD AST [Catalytic activity/Vol] 23 U/L Normal <40 [facility] Comment on above: Performed By: #### P SAS, LIPR #### [address] [address] Web Systems Developer: Sudhir Cheng MD #### CDP, CP #### [facility] [address] [place], [place] [id number] Web Systems Developer: Juanjose Osorio MD Bilirubin [Mass/Vol] 0.7 mg/dL Normal 0.3-1.2 [facility] Comment on above: Performed By: #### P SAS, LIPR #### [address] [address] Web Systems Developer: Sudhir Cheng MD #### CDP, CP #### [facility] [address] [place], [place] [id number] Web Systems Developer: Juanjose Osorio MD Calcium [Mass/Vol] 8.6 mg/dL Normal 8.6-10.4 [facility] Comment on above: Performed By: #### P SAS, LIPR #### [address] [id number] Web Systems Developer: Sudhir Cheng MD #### CDP, CP #### [facility] [address] [place], [place] [id number] Web Systems Developer: Juanjose Osorio MD Chloride [Moles/Vol] 105 mmol/L Normal 98-107 [facility] Comment on above: Performed By: #### P SAS, LIPR #### [address] [id number] Web Systems Developer: Sudhir Cheng MD #### CDP, CP #### [facility] [address] [place], [place] [phone] Web Systems Developer: Juanjose Osorio MD CO2 [Moles/Vol] 30 mmol/L Normal 20-31 [facility] Comment on above: Performed By: #### P SAS, LIPR #### [address] [address] Web Systems Developer: Sudhir Cheng MD #### CDP, CP #### [facility] [address] [place], [place] [id number] Web Systems Developer: Juanjose Osorio MD Creatinine [Mass/Vol] 0.8 mg/dL Normal 0.7-1.2 [facility] Comment on above: Performed By: #### P SAS, LIPR #### [address] [id number] Web Systems Developer: Sudhir Cheng MD #### CDP, CP #### [facility] [address] [place], [place] [phone] Web Systems Developer: Juanjose Osorio MD GFR/1.73 sq M.predicted among non-blacks MDRD (S/P/Bld) [Vol rate/Area] mL/min/{1.73_m2} Normal >60 [facility] Comment on above: Result Comment: These results [...] affects renal tubular secretion. Performed By: #### P SAS, LIPR #### [address] [id number] Web Systems Developer: Sudhir Cheng MD #### CDP, CP #### [facility] [address] [place], [place] [phone] Web Systems Developer: Juanjose Osorio MD Glucose [Mass/Vol] 86 mg/dL Normal 70-99 [facility] Comment on above: Performed By: #### P SAS, LIPR #### [address] [id number] Web Systems Developer: Sudhir Cheng MD #### CDP, CP #### [facility] [address] [place], [place] [id number] Web Systems Developer: Juanjose Osorio MD Potassium [Moles/Vol] 4.0 mmol/L Normal 3.7-5.3 [facility] Comment on above: Performed By: #### P SAS, LIPR #### [address] [id number] Web Systems Developer: Sudhir Cheng MD #### CDP, CP #### [facility] [address] [place], [place] [id number] Web Systems Developer: Juanjose Osorio MD Protein [Mass/Vol] 6.3 g/dL Low 6.4-8.3 [facility] Comment on above: Performed By: #### P SAS, LIPR #### [facility] [address] [place], [place] [id number] Web Systems Developer: Sudhir Cheng MD #### CDP, CP #### [facility] [address] [place], [place] [id number] Web Systems Developer: Juanjose Osorio MD Sodium [Moles/Vol] 141 mmol/L Normal 135-144 [facility] Comment on above: Performed By: #### P SAS, LIPR #### [facility] [address] [place], [place] [id number] Web Systems Developer: Sudhir Cheng MD #### CDP, CP #### [facility] [address] [place], [place] [id number] Web Systems Developer: Juanjose Osorio MD Urea nitrogen [Mass/Vol] 16 mg/dL Normal 8-23 [facility] Comment on above: Performed By: #### P SAS, LIPR #### [facility] [address] [place], [place] 315[address] Web Systems Developer: Sudhir Cheng MD #### CDP, CP #### [facility] [address] [place], [place] [phone] Web Systems Developer: Juanjose Osorio MD [facility] 11-12-2024 Albumin [Mass/Vol] 3.9 g/dL 3.5 - 5.2 g/dL [facility] Albumin/Globulin [Mass ratio] 1.6 {ratio} 1.0 - 2.5 [facility] ALP [Catalytic activity/Vol] 85 U/L 40 - 129 U/L [facility] ALT [Catalytic activity/Vol] 13 U/L 5 - 41 U/L [facility] Anion gap [Moles/Vol] 6 mmol/L Low 9 - 17 mmol/L [facility] AST [Catalytic activity/Vol] 23 U/L NINF - 40 U/L [facility] Bilirubin [Mass/Vol] 0.7 mg/dL 0.3 - 1 .2 mg/dL [facility] Calcium [Mass/Vol] 8.6 mg/dL 8.6 - 10. 4 mg/dL [facility] Chloride [Moles/Vol] 105 mmol/L 98 - 10 7 mmol/L [facility] CO2 [Moles/Vol] 30 mmol/L 20 - 31 mmol/L [facility] Creatinine [Mass/Vol] 0.8 mg/dL 0.7 - 1.2 mg/dL [facility] Est, [place] Filt Rate - PINF [facility] Comment on above: These results are not intended for use [...] following therapy that affects renal tubular secretion. Glucose [Mass/Vol] 86 mg/dL 70 - 99 mg/dL [facility] Interpretation and review of laboratory results Abnormal [facility] Potassium [Moles/Vol] 4 mmol/L 3.7 - 5.3 mmol/L [facility] Protein [Mass/Vol] 6.3 g/dL Low 6.4 - 8.3 g/dL [facility] Sodium [Moles/Vol] 141 mmol/L 135 - 144 mmol/L [facility] Urea nitrogen [Mass/Vol] 16 mg/dL 8 - 23 mg/dL [facility] Lipid Panelon 11-12-2024 Cholesterol [Mass/Vol] 114 mg/dL 0 - 199 mg/dL [facility] Comment on above: Cholesterol Guidelines: <200 Desirable 200-240 Borderline >240 Undesirable Cholesterol in HDL [Mass/Vol] 45 mg/dL 40 - PINF mg/dL [facility] Comment on above: HDL Guidelines: <40 Undesirable 40-59 Borderline >59 Desirable Cholesterol in LDL [Mass/Vol] 60 mg/dL 0 - 100 mg/dL [facility] Comment on above: LDL Guidelines: <100 Desirable 100-129 Near to/above Desirable 130-159 Borderline >159 Undesirable Direct (measured) LDL and calculated LDL are not interchangeable tests. Cholesterol in VLDL [Mass/Vol] 9 mg/dL 1 - 30 mg/dL [facility] Cholesterol.total/Cho lesterol in HDL [Mass ratio] 2.5 {ratio} NINF - 5.0 [facility] Triglyceride [Mass/Vol] 46 mg/dL NINF - 150 mg/dL [facility] Comment on above: Triglyceride Guidelines: <150 Desirable 150-199 Borderline 200-499 High >499 Very high Based on AHA Guidelines for fasting triglyceride, February 2012. [facility] Lipid Profileon 11-12-2024 Cholesterol [Mass/Vol] 114 mg/dL Normal 0-199 [facility] Comment on above: Result Comment: Cholesterol Guidelines: <200 Desirable 200-240 Borderline >240 Undesirable Performed By: #### P SAS, LIPR #### [address] [id number] Web Systems Developer: Sudhir Cheng MD #### CDP, CP #### [facility] [address] [place], [place] [phone] Web Systems Developer: Juanjose Osorio MD Cholesterol in HDL [Mass/Vol] 45 mg/dL Normal >40 [facility] Comment on above: Result Comment: HDL Guidelines: <40 Undesirable 40-59 Borderline >59 Desirable Performed By: #### P SAS, LIPR #### [address] [id number] Web Systems Developer: Sudhir Cheng MD #### CDP, CP #### [facility] [address] [place] [address] Web Systems Developer: Juanjose Osorio MD Cholesterol in LDL [Mass/Vol] 60 mg/dL Normal 0-100 [facility] Comment on above: Result Comment: LDL Guidelines: <100 Desirable 100-129 Near to/above Desirable 130-159 Borderline >159 Undesirable Direct (measured) LDL and calculated LDL are not interchangeable tests. Performed By: #### P SAS, LIPR #### [facility] [employer] [address] [place] [address] [id number] Web Systems Developer: Sudhir Cheng MD #### CDP, CP #### [facility] [address] [place], [place] [phone] Web Systems Developer: Juanjose Osorio MD Cholesterol in VLDL [Mass/Vol] 9 mg/dL Normal 1-30 [facility] Comment on above: Performed By: #### P SAS, LIPR #### [facility] [address] [place] [address] Web Systems Developer: Sudhir Cheng MD #### CDP, CP #### [facility] [address] [place], [place] [phone] Web Systems Developer: Juanjose Osorio MD Cholesterol.total/Cho lesterol in HDL [Mass ratio] 2.5 {ratio} Normal <5.0 [facility] Comment on above: Performed By: #### P SAS, LIPR #### [facility] [address] [place] [address] Web Systems Developer: Sudhir Cheng MD #### CDP, CP #### [facility] [address] [place], [place] [phone] Web Systems Developer: Juanjose Osorio MD Triglyceride [Mass/Vol] 46 mg/dL Normal <150 [facility] Comment on above: Result Comment: Triglyceride Guidelines: <150 Desirable 150-199 Borderline 200-499 High >499 Very high Based on AHA Guidelines for fasting triglyceride, February 2012. Performed By: #### P SAS, LIPR #### [facility] [address] [place] [address] Web Systems Developer: Sudhir Cheng MD #### CDP, CP #### [facility] [address] [place], [place] [phone] Web Systems Developer: Juanjose Osorio MD PSA Screeningon 11-12-2024 Prostate specific Ag [Mass/Vol] 0.78 ng/mL 0.00 - 4.00 ng/mL [facility] Comment on above: The Apollo ECLIA as say is used. Results obtained with different assay methods cannot be used interchangeably. [facility] PSA, Screeningon 11-12-2024 Prostatic Spec. Ag 0.78 ng/mL Normal 0.00-4.00 [facility] Comment on above: Result Comment: The [employer] ECLIA assay is used. Results obtained with different assay methods cannot be used interchangeably. Performed By: #### P SAS, LIPR #### [facility] [employer] [address] [place] [address] Web Systems Developer: Sudhir Cheng MD #### CDP, CP #### [facility] [address] [place] [address] Web Systems Developer: Juanjose Osorio MD XR KNEE RIGHT (MIN 4 VIEWS)o n 06-25-2024 XR KNEE RIGHT (MIN 4 VIEWS) EXAM: XR KNEE RIGHT (MIN 4 VIEWS) HISTORY: Chronic pain of right knee COMPARISON: None. IMPRESSION: FINDINGS/IMPRESSION: 1. Suggestion of mild subluxation patella with regard to the trochlear notch on the sunrise view. 2. Mild degenerative change patellofemoral joint without joint effusion. 3. Mild degenerative changes bilaterally for age. 4. No chondrocalcinosis or fracture. Interpreted by: Sajan Sanchez Jr., MD Signed by: Sajan Sanchez Jr., MD 06/25/24 Final result Normal [facility] XR Knee - right 4 Viewson FINDINGS/IMPRESSION: 1. Suggestion of mild subluxation patella with regard to the trochlear notch on the sunrise view. 2. Mild degenerative change patellofemoral joint without joint effusion. 3. Mild degenerative changes bilaterally for age. 4. No chondrocalcinosis or fracture. [facility] EXAM: XR KNEE RIGHT (MIN 4 VIEWS) HISTORY: Chronic pain of right knee COMPARISON: None. [facility] Sajan Sanchez Jr., MD - 06/25/2024 EXAM: XR KNEE RIGHT (MIN 4 VIEWS) HISTORY: Chronic pain of right knee COMPARISON: None. IMPRESSION: FINDINGS/IMPRESSION: 1. Suggestion of mild subluxation patella with regard to the trochlear notch on the sunrise view. 2. Mild degenerative change patellofemoral joint without joint effusion. 3. Mild degenerative changes bilaterally for age. 4. No chondrocalcinosis or fracture. [facility] Radiology Study observation (narrative) [facility] XR Knee - right 4 ViewsOrder ed By: Sajan Sanchez on 06-25-2024 [facility] Work Phone: XR LUMBAR SPINE (MIN 4 VIEWS )on 06-25-2024 XR LUMBAR SPINE (MIN 4 VIEWS) EXAM: XR LUMBAR SPINE (MIN 4 VIEWS) HISTORY: Chronic bilateral low back pain without sciatica COMPARISON: CT abdomen and pelvis 07/12/2014. IMPRESSION: FINDINGS/IMPRESSION: 1. 4 mm anterolisthesis L5 on S1 due to bilateral pars defects at L5, similar to the prior CT in 2014. 2. Moderate diffuse disc and facet degenerative changes. 3. 15 degree convex right lumbar curve L1 through L5 has mildly increased. 4. No fracture, lytic, or blastic lesion. Interpreted by: Sajan Sanchez Jr., MD Signed by: Sajan Sanchez Jr., MD 06/25/24 Final result Normal [facility] XR Lumbar spine 4 Viewson FINDINGS/IMPRESSION: 1. 4 mm anterolisthesis L5 on S1 due to bilateral pars defects at L5, similar to the prior CT in 2014. 2. Moderate diffuse disc and facet degenerative changes. 3. 15 degree convex right lumbar curve L1 through L5 has mildly increased. 4. No fracture, lytic, or blastic lesion. [facility] CONSOL[facility] EXAM: XR LUMBAR SPINE (MIN 4 VIEWS) HISTORY: Chronic bilateral low back pain without sciatica COMPARISON: CT abdomen and pelvis 07/12/2014. [facility] Sajan Sanchez Jr., MD - 06/25/2024 EXAM: XR LUMBAR SPINE (MIN 4 VIEWS) HISTORY: Chronic bilateral low back pain without sciatica COMPARISON: CT abdomen and pelvis 07/12/2014. IMPRESSION: FINDINGS/IMPRESSION: 1. 4 mm anterolisthesis L5 on S1 due to bilateral pars defects at L5, similar to the prior CT in 2014. 2. Moderate diffuse disc and facet degenerative changes. 3. 15 degree convex right lumbar curve L1 through L5 has mildly increased. 4. No fracture, lytic, or blastic lesion. [facility] Radiology Study observation (narrative) [facility] XR Lumbar spine 4 ViewsOrder ed By: Sajan Sanchez on 06-25-2024 [facility] Work Phone: BMPon 05-16-2024 Anion gap [Moles/Vol] 11 mmol/L Normal 6-16 [facility] Comment on above: Performed By: #### 2 [id number] #### [facility] [address] [place] [address] Calcium [Mass/Vol] 8.7 mg/dL Low 8.9-11.1 [facility] Comment on above: Performed By: #### 2 [id number] #### [facility] [address] [place] [address] Chloride [Moles/Vol] 105 mmol/L Normal 101-111 [facility] Comment on above: Performed By: #### 2 [id number] #### [facility] [address] [facility] [place] [address] CO2 [Moles/Vol] 26 mmol/L Normal 21-31 [facility] Comment on above: Performed By: #### 2 [id number] #### [facility] [address] [facility] [place] [address] Creatinine [Mass/Vol] 0.8 mg/dL Normal 0.5-1.3 [facility] Comment on above: Performed By: #### 2 [id number] #### [facility] [address] [place] [address] Glucose [Mass/Vol] 85 mg/dL Normal 55-199 [facility] Comment on above: Performed By: #### 2 [id number] #### [facility] [address] [place] [address] Potassium [Moles/Vol] 4.0 mmol/L Normal 3.5-5.3 [facility] Comment on above: Performed By: #### 2 [id number] #### [facility] [address] [place] [address] Sodium [Moles/Vol] 138 mmol/L Normal 135-145 [facility] Comment on above: Performed By: #### 2 [id number] #### [facility] [address] [place] [address] Urea nitrogen [Mass/Vol] 18 mg/dL Normal 5-21 [facility] Comment on above: Performed By: #### 2 [id number] #### [facility] [address] [place] [address] Urea nitrogen/Creatinine [Mass ratio] 22 No Units High 10-20 [facility] Comment on above: Performed By: #### 2 [id number] #### [facility] [address] [place] [address] CBC w/ Auto Diffon 05-16- 4 Basophils/100 WBC (Bld) 0.2 % Normal 0.0-2.0 [facility] Comment on above: Performed By: #### 2 [id number] #### [facility] [address] [place] [address] Basophils/Leukocytes Auto (Bld) [Pure # fraction] 0.0 E9/L Normal 0.0-0.2 [facility] Comment on above: Performed By: #### 2 [id number] #### [facility] [address] [place] [address] Eosinophils (Bld) [#/Vol] 0.0 E9/L Normal 0.0-0.5 [facility] Comment on above: Performed By: #### 2 [id number] #### [facility] [address] [place] [address] Eosinophils/100 WBC (Bld) 0.2 % Normal 0.0-8.0 [facility] Comment on above: Performed By: #### 2 [id number] #### [facility] [address] [place] [address] Erythrocyte distribution width (RBC) [Ratio] 14.8 % High 10.9-14.2 [facility] Comment on above: Performed By: #### 2 592713 #### [facility] [address] [place] [address] Hematocrit (Bld) [Volume fraction] 38.5 % Normal 37.7-49.0 [facility] Comment on above: Performed By: #### 2 697084 #### [facility] [address] [place] [address] Hemoglobin (Bld) [Mass/Vol] 13.1 g/dL Low 13.5-17.5 [facility] Comment on above: Performed By: #### 2 [id number] #### [facility] [address] [place] [address] Lymphocytes (Bld) [#/Vol] 2.0 E9/L Normal 1.0-4.0 [facility] Comment on above: Performed By: #### 2 888172 #### [facility] [address] [place] [address] Lymphocytes/100 WBC (Bld) 35.7 % Normal 14.0-50.0 [facility] Comment on above: Performed By: #### 2 116332 #### [facility] [address] [place] [address] MCH (RBC) [Entitic mass] 34.8 pg High 27.0-34.0 [facility] Comment on above: Performed By: #### 2 [id number] #### [facility] [address] [place] [address] MCHC (RBC) [Mass/Vol] 34.0 g/dL Normal 31.4-36.0 [facility] Comment on above: Performed By: #### 2 324871 #### [facility] [address] [place] [address] MCV (RBC) [Entitic vol] 102.4 fL High 80.0-100.0 [facility] Comment on above: Performed By: #### 2 [id number] #### [facility] [address] [place] [address] Monocytes (Bld) [#/Vol] 1.0 E9/L Normal 0.2-1.0 [facility] Comment on above: Performed By: #### 2 392931 #### [facility] [address] [place] [address] Neutrophils (Bld) [#/Vol] 2.6 E9/L Normal 2.0-7.5 [facility] Comment on above: Performed By: #### 2 225395 #### [facility] [address] [place] [address] Neutrophils/100 WBC (Bld) 46.0 % Normal 36.0-75.0 [facility] Comment on above: Performed By: #### 2 282144 #### [facility] [address] [place] [address] Platelet mean volume (Bld) [Entitic vol] 10.5 fL Normal 6.4-10.8 [facility] Comment on above: Performed By: #### 2 [id number] #### [facility] [address] [place] [address] Platelets (Bld) [#/Vol] 97.0 E9/L Low 150.0-500.0 [facility] Comment on above: Performed By: #### 2 374454 #### [facility] [address] [place] [address] RBC (Bld) [#/Vol] 3.8 E12/L Low 4.3-5.9 [facility] Comment on above: Performed By: #### 2 294055 #### [facility] [address] [place] [address] WBC corrected for nucl RBC Auto (Bld) [#/Vol] 5.6 E9/L Normal 4.0-11.0 [facility] Comment on above: Performed By: #### 2 [id number] #### [facility] [address] [place] [address] CHEMISTRYOrdered By: SYSTEM SYSTEM on 05-16-2024 Anion [...] (Bld) [Mass fraction] 5.1 % Normal <=5.9% [facility] ChemAutoSS CTA Headon 05-16-2024 CTA Head Exam Date/Time: 05/16/2024 10:53 EST [...] 370 Contrast amount in ml's: 88 Normal [facility] CTA Neckon 05-16-2024 CTA Neck Exam [...] 370 Contrast amount in ml's: 88 Normal [facility] Discharge Note-Nursingon Discharge Note-Nursing Discharge Note-Nursing NORY DSOUZA :1955 Visit Date:05/15/2024 Inpatient Discharge Instructions Your Care Team Admitting Physician - Zunilda CHACON MD Consulting Physician - Darius FISCHER, Samantha Sunshine [...] do in patient paper work. Where: [address] [place] [address]- Business (1) Follow Up with DOUG ARTEAGA When: Within 5 to 7 days Comments: Office was closed for lunch. Patient needs to call to make hospital follow up appointment. Where: [address] [place] [address]- Business (1) Medications What How Much When Instructions Next Dose New aspirin (aspirin 81 mg Oral EC Tab) 1 Tablets By Mouth Every day 05/17/2024 New atorvastatin (atorvastatin 40 mg Tab) 1 Tablets By Mouth Every day Pickup at [facility]/pharmacy #[id number] Begin 05/17/2024 Unchanged diltiazem (DilTIAZem (Eqv-Cardizem CD) 120 mg/ 24 hours oral capsule, extended release) See instructions Resume 05/17/2024 Unchanged lansoprazole (Prevacid 30 mg Cap-EC) 1 Capsules By Mouth Every day Take one capsule by mouth every day 05/17/2024 Unchanged metoprolol (Lopressor 25 mg oral tablet) See instructions Resume 05/17/2024 Pharmacy Information [facility]/pharmacy #[id number]: [address] [place], [place] [id number] [phone] What How Much When Comments Stop Taking [...] reflux disease) HTN (hypertension) 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 Normal [facility] HEMATOLOGYOrdered By: SYSTEM SYSTEM on 05-16-2024 [...] Normal 4.0 - 11.0 E9/L Remisol Heme VlcY2ecl 05-16-2024 HbA1c (Bld) [Mass fraction] 5.1 % Normal <=5.9 [facility] Comment on above: Performed By: #### 7 [id number] #### [facility] [address] [place] [address] Inpatient Clinical Summaryon 05-16-2024 Inpatient Clinical Summary Inpatient Clinical Summary [address] [address] Clinical Summary Person Information: Name: NORY DSOUZA Age: 69 Years : 1955 Sex: Male PCP: DOUG ARTEAGA MD Marital Status: Phone: Race: White Ethnicity: Non- or Language: Montenegrin Visit Id: Visit Reason: Weakness or fatigue; Paresthesia; LEFT SIDE TIGGLING Speciality: Acuity: Enc Type: Observation Med Service: Medical Arrival: 05/15/2024 14:52:20 Discharge: Dispo Type: Admitted as IP to this Hosp Address: [address] [place] [id number] Provider Notes: Diagnosis: 2:Hyperlipidemia; 3:HTN (hypertension); 4:GERD (gastroesophageal reflux disease); 5:Smoker Problems Active GERD (gastroesophageal reflux disease) HTN (hypertension) Dehydration SVT (supraventricular tachycardia) Family history of prostate cancer Post-void dribbling Nocturia Smoker Urinary tract infection Frequent urination Hyperlipidemia Solar keratosis 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 Patient needs to call to make hospital follow up appointment. With: Address: When: Samantha Mccoy MD, NEU [address] [address] Within 2 to 4 weeks Patient Education Information: Normal [facility] Inpatient Patient Summaryon 05-16-2024 Inpatient Patient Summary Inpatient Patient Summary [address] [address] Patient Discharge Instructions PERSON INFORMATION Name: NORY DSOUZA Date of : 1955 Current Date: 05/16/2024 12:13:38 PHYSICIANS Admitting Physician: INES FISCHER, Zunilda Primary Care Physician: DOUG ARTEAGA MD Comment: Discharge Diagnosis: 2:Hyperlipidemia; 3:HTN (hypertension); 4:GERD [...] Follow up: With: Address: When: DOUG ARTEAGA [address] [place] [address] Business (1) Within 5 to 7 days Comments: Office was closed for lunch. Patient needs to call to make hospital follow up appointment. With: Address: When: Darius FISCHER, SIERRA Ayala [address] [address] Within 2 to 4 weeks [...] STAY New Medications [id number], [address] [place], [place] [id number], [phone] atorvastatin (atorvastatin 40 mg Tab) 1 Tablets [...] Leaflets: You may receive a survey from Vinicio Monsivais asking you to rate your care experience. Your feedback is important and will help us understand what we do well and how we can improve the quality of care we provide to you, your loved ones and our community. It???s an honor to serve you. Thank you for choosing [facility] Normal [facility] Interdisciplinary Note - Junaid e Manageron 05-16-2024 Interdisciplinary Note - Mechanical Reliability Engineer Interdisciplinary Note - Mechanical Reliability Engineer This SW rounded with patient today. He [...] Paramedicine. Family will transport him at d/c. Normal [facility] Comment on above: Result Comment: Elec tronically Signed By: Sanaz Oshea\.maame\Date and Time Signed: 05/16/24 11:16 EST Interdisciplinary Note - Denisse n 05-16-2024 Interdisciplinary Note - OT Interdisciplinary Note - OT OT [facility] six clicks score 23/24 = no further OT needs. Patient is modified Ind w/ basic adls and transfers in room and declines further OT needs. DC inpatient OT services. Normal [facility] Lipid Panelon 05-16-2024 Cholesterol [Mass/Vol] 122 mg/dL Normal 120-200 [facility] Comment on above: Performed By: #### 2 [id number] #### [facility] [address] [place] [address] Cholesterol in HDL [Mass/Vol] 46 mg/dL Invalid Interpretation Code [facility] Comment on above: Result Comment: '>= 60 LOW RISK' '<= 40 HIGH RISK' Performed By: #### 2 [id number] #### [facility] [address] [place] [address] Cholesterol in LDL [Mass/Vol] 70 mg/dL Normal <=129 [facility] Comment on above: Performed By: #### 2 [id number] #### [facility] [address] [place] [address] Cholesterol in VLDL [Mass/Vol] 14 mg/dL Normal 7-40 [facility] Comment on above: Performed By: #### 2 [id number] #### [facility] [address] [place] [address] Triglyceride [Mass/Vol] 71 mg/dL Normal <=149 [facility] Comment on above: Performed By: #### 2 [id number] #### [facility] [address] [place] [address] eGFRon 05-16-2024 eGFR 95 mL/min/1.73 m2 Normal >=59 [facility] Comment on above: Performed By: #### 1 [id number] #### [facility] [address] [place] [address] BB Draw & Holdon 05-15-2024 BB D&H Sample drawn for Blood Ba Normal [facility] Comment on above: Performed By: #### 1 [id number] #### [facility] [address] [place] [address] CBC w/ Auto Diffon 4 Basophils/100 WBC (Bld) 0.5 % Normal 0.0-2.0 [facility] Comment on above: Performed By: #### 2 [id number] #### [facility] [address] [place] [address] Basophils/Leukocytes Auto (Bld) [Pure # fraction] 0.0 E9/L Normal 0.0-0.2 [facility] Comment on above: Performed By: #### 2 [id number] #### [facility] [address] [place] [address] Eosinophils (Bld) [#/Vol] 0.0 E9/L Normal 0.0-0.5 [facility] Comment on above: Performed By: #### 2 [id number] #### [facility] [address] [place] [address] Eosinophils/100 WBC (Bld) 0.3 % Normal 0.0-8.0 [facility] Comment on above: Performed By: #### 2 [id number] #### [facility] [address] [place] [address] Erythrocyte distribution width (RBC) [Ratio] 14.8 % High 10.9-14.2 [facility] Comment on above: Performed By: #### 2 [id number] #### [facility] [address] [place] [address] Hematocrit (Bld) [Volume fraction] 39.4 % Normal 37.7-49.0 [facility] Comment on above: Performed By: #### 2 [id number] #### [facility] [address] [place] [address] Hemoglobin (Bld) [Mass/Vol] 13.3 g/dL Low 13.5-17.5 [facility] Comment on above: Performed By: #### 2 [id number] #### [facility] [address] [place] [address] Lymphocytes (Bld) [#/Vol] 1.5 E9/L Normal 1.0-4.0 [facility] Comment on above: Performed By: #### 2 [id number] #### [facility] [address] [place] [address] Lymphocytes/100 WBC (Bld) 29.8 % Normal 14.0-50.0 [facility] Comment on above: Performed By: #### 2 [id number] #### [facility] [address] [place] [address] MCH (RBC) [Entitic mass] 34.7 pg High 27.0-34.0 [facility] Comment on above: Performed By: #### 2 [id number] #### [facility] [address] [place] [address] MCHC (RBC) [Mass/Vol] 33.7 g/dL Normal 31.4-36.0 [facility] Comment on above: Performed By: #### 2 [id number] #### [facility] [address] [place] [address] MCV (RBC) [Entitic vol] 103.0 fL High 80.0-100.0 [facility] Comment on above: Performed By: #### 2 [id number] #### [facility] [address] [place] [address] Monocytes (Bld) [#/Vol] 0.8 E9/L Normal 0.2-1.0 [facility] Comment on above: Performed By: #### 2 [id number] #### [facility] [address] [place] [address] Neutrophils (Bld) [#/Vol] 2.7 E9/L Normal 2.0-7.5 [facility] Comment on above: Performed By: #### 2 [id number] #### [facility] [address] [place] [address] Neutrophils/100 WBC (Bld) 52.8 % Normal 36.0-75.0 [facility] Comment on above: Performed By: #### 2 [id number] #### [facility] [address] [place] [address] Platelet mean volume (Bld) [Entitic vol] 10.5 fL Normal 6.4-10.8 [facility] Comment on above: Performed By: #### 2 [id number] #### [facility] [address] [place] [address] Platelets (Bld) [#/Vol] 94.0 E9/L Low 150.0-500.0 [facility] Comment on above: Performed By: #### 2 [id number] #### [facility] [address] [place] [address] RBC (Bld) [#/Vol] 3.8 E12/L Low 4.3-5.9 [facility] Comment on above: Performed By: #### 2 [id number] #### [facility] [address] [place] [address] WBC corrected for nucl RBC Auto (Bld) [#/Vol] 5.1 E9/L Normal 4.0-11.0 [facility] Comment on above: Performed By: #### 2 [id number] #### [facility] [address] [place] [address] CHEMISTRYOrdered By: Lab ROP User on 05-15-2024 Glucose [Mass/Vol] 79 mg/dL Normal 55 - 99 mg/dL [facility] POC Subsection POC Device SN [id number] Invalid Interpretation Code [facility] POC Subsection POC User ID [id number] 1 Invalid Interpretation Code [facility] POC Subsection POC Username VIN CA Invalid Interpretation Code [facility] POC Subsection CHEMISTRYOrdered By: SYSTEM [...] Sensitivity Troponin I Instructions For Use, Marilyn Savanna, December 2017) Urea nitrogen [Mass/Vol] 17 mg/dL Normal 5 - 21 mg/dL [facility] Urea nitrogen/Creatinine [Mass ratio] 19 mg/mg Normal 10 - 20 [facility] CMPon 05-15-2024 Albumin [Mass/Vol] 4.0 g/dL Normal 3.3-5.0 [facility] Comment on above: Performed By: #### 2 [id number] #### [facility] [address] [facility] [place] [address] Albumin/Globulin (S) [Mass conc ratio] 1.4 Normal 1.1-2.2 [facility] Comment on above: Performed By: #### 2 [id number] #### [facility] [address] [place] [address] ALP [Catalytic activity/Vol] 62 Int._Unit/L Normal 21-98 [facility] Comment on above: Performed By: #### 2 [id number] #### [facility] [address] [place] [address] ALT No additional P-5'-P [Catalytic activity/Vol] 10 Int._Unit/L Normal 6-46 [facility] Comment on above: Performed By: #### 2 [id number] #### [facility] [address] [place] [address] Anion gap [Moles/Vol] 8 mmol/L Normal 6-16 [facility] Comment on above: Performed By: #### 2 [id number] #### [facility] [address] [place] [address] AST [Catalytic activity/Vol] 17 Int._Unit/L Normal 5-43 [facility] Comment on above: Performed By: #### 2 [id number] #### [facility] [address] [place] [address] Bilirubin [Mass/Vol] 0.9 mg/dL Normal 0.0-1.1 [facility] Comment on above: Performed By: #### 2 [id number] #### [facility] [address] [place] [address] Calcium [Mass/Vol] 8.7 mg/dL Low 8.9-11.1 [facility] Comment on above: Performed By: #### 2 [id number] #### [facility] [address] [place] [address] Chloride [Moles/Vol] 105 mmol/L Normal 101-111 [facility] Comment on above: Performed By: #### 2 [id number] #### [facility] [address] [place] [address] CO2 [Moles/Vol] 29 mmol/L Normal 21-31 [facility] Comment on above: Performed By: #### 2 [id number] #### [facility] [address] [place] [address] Creatinine [Mass/Vol] 0.9 mg/dL Normal 0.5-1.3 [facility] Comment on above: Performed By: #### 2 [id number] #### [facility] [address] [place] [address] Globulin (S) [Mass/Vol] 2.8 g/dL Normal 1.4-4.0 [facility] Comment on above: Performed By: #### 2 [id number] #### [facility] [address] [place] [address] Glucose [Mass/Vol] 89 mg/dL Normal 55-199 [facility] Comment on above: Performed By: #### 2 927902 #### [facility] [address] [place] [address] Potassium [Moles/Vol] 4.3 mmol/L Normal 3.5-5.3 [facility] Comment on above: Performed By: #### 2 [id number] #### [facility] [address] [place] [address] Protein [Mass/Vol] 6.8 g/dL Normal 6.0-7.8 [facility] Comment on above: Performed By: #### 2 [id number] #### [facility] [address] [place] [address] Sodium [Moles/Vol] 138 mmol/L Normal 135-145 [facility] Comment on above: Performed By: #### 2 469222 #### [facility] [address] [place] [address] Urea nitrogen [Mass/Vol] 17 mg/dL Normal 5-21 [facility] Comment on above: Performed By: #### 2 919019 #### [facility] [address] [place] [address] Urea nitrogen/Creatinine [Mass ratio] 19 No Units Normal 10-20 [facility] Comment on above: Performed By: #### 2 [id number] #### [facility] [address] [place] [address] COAGULATIONOrdered By: Lois vane Sanford on 05-15-2024 aPTT Coag (PPP) [Time] 29.6 s Normal 25.1 - 36.5 second(s) [facility] Auto Coag Comment on above: Interpretive Data: Zia lottie 15 days - 4 weeks 1 - [...] the same coagulation reagent and instrumentation as [facility]. Currently there are no coagulation studies available worldwide for children to 14 days, and no normal ranges. Heparin therapeutic range (represented by Anti-Factor Xa activity of 0.2 - 0.4 U/mL) corresponds to PTT of 56.6 - 109.0 sec. INR Coag (PPP) [Relative time] 1.08 {INR} Invalid Interpretation Code [facility] Comment on above: Interpretive Data: I NR results are specifically intended to assess patients stabilized on long-term Anticoagulation therapy suggested INR s Less Intensive Anticoagulation 2.0 3.0 Conventional Range 3.0 4.5 PT Coag (PPP) [Time] 12.1 s Normal 9.4 - 1 2.5 second(s) [facility] Comment on above: [...] the same coagulation reagent and instrumentation as [facility]. Currently there are no coagulation studies available worldwide for children to 14 days, and no normal ranges. CT Head or Brain w/o Contras brett 05-15-2024 CT Head or Brain w/o Contrast [...] acute intra or extra axial findings. Normal [facility] Capillary Glucose POCon 04-29 Glucose [Mass/Vol] 79 mg/dL Normal 55-99 [facility] Comment on above: Performed By: #### 2 [id number] #### [facility] [address] [place] [address] ED Clinical Summaryon 2023 ED Clinical Summary ED Clinical Summary [address] [address] ED Clinical Summary Person Information Name: NORY DSOUZA [place] Age: 69 Years : 1955 Sex: Male Language: Montenegrin PCP: DOUG ARTEAGA MD Marital Status: Phone: Visit Id: Visit Reason: Weakness or fatigue; Paresthesia; LEFT SIDE TIGGLING Speciality: Acuity: 2 Enc Type: Observation Med Service: Medical Arrival: 05/15/2024 14:52:20 Discharge: LOS: 000 03:01 Checkin: 05/15/2024 14:52:20 Checkout: 05/15/2024 17:53:33 Dispo Type: Admitted as IP to this [facility] EVENTS: Event Name Event Status Request [...] 05/15/2024 17:53:33 05/15/2024 17:53:33 05/15/2024 17:53:33 ADDRESS: [address] [place] [id number] PHYS DOC NOTES: MEDICAL INFORMATION: Prescriptions Given: [...] (hypertension); 4:GERD (gastroesophageal reflux disease); 5:Smoker Normal [facility] ED Note-Physicianon 05-15-20 ED Note-Physician ED [...] prostate cancer Frequent urination 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 Normal [facility] Comment on above: Result Comment: Elec tronically Signed By: Robson Cartwright DO\.br\Date and Time Signed: 05/15/24 16:11 EST ED Patient Education Noteon 05-15-2024 ED Patient Education Note ED Patient Education Note Normal [facility] ED Patient Summaryon 024 ED Patient Summary ED Patient Summary [place] [id number] Patient Discharge Instructions Person Information Name: NORY DSOUZA Age: 69 Years Arrival Date: 05/15/2024 14:52:20 Discharge Diagnosis: 2:Hyperlipidemia; 3:HTN (hypertension); 4:GERD (gastroesophageal reflux disease); 5:Smoker Primary Care Physician: DOUG ARTEAGA MD Provider Information Primary Provider: Robson Cartwright DO [employer] Safety Program Coordinator:None The exam and treatment you received in the Emergency Department were for an urgent problem and are not intended as complete care. It is important that you follow up with a doctor, nurse practitioner, or physician???s assistant attorney general for ongoing care. If your symptoms become worse or you do not improve as expected and you are unable to reach your usual health care provider, you should return to the Emergency Department. We are available 24 hours a day. NORY DSOUZA Stone has been given the following list of [...] opioids can be used to help relieve plvaarnk-ea-osvhmh pain and are often prescribed following a [...] be struggling with addiction, tell your health direct care provider and ask for guidance or call [facility]???S National Helpline at 3-473-875-[employer]. v Source: (more content not included)... Normal [facility] HEMATOLOGYOrdered By: SYSTEM SYSTEM on 05-15-2024 [...] Coag (PPP) [Time] 29.6 second(s) Normal 25.1-36.5 [facility] Comment on above: Result Comment: Para [...] the same coagulation reagent and instrumentation as [facility]. Currently there are no coagulation studies available worldwide for children to 14 days, and no normal ranges. Heparin therapeutic range (represented by Anti-Factor Xa activity of 0.2 - 0.4 U/mL) corresponds to PTT of 56.6 - 109.0 sec. Performed By: #### 1 [id number] #### [facility] [address] [place] [address] INR Coag (PPP) [Relative time] 1.08 {INR} Invalid Interpretation Code [facility] Comment on above: Result Comment: INR results are specifically intended to assess patients stabilized on long-term Anticoagulation therapy suggested INR???s ???Less Intensive Anticoagulation??? 2.0 ??? 3.0 Conventional Range 3.0 ??? 4.5 Performed By: #### 1 [id number] #### [facility] [address] [place] [address] PT Coag (PPP) [Time] 12.1 second(s) Normal 9.4-12.5 [facility] Comment on above: Result Comment: 15 [...] the same coagulation reagent and instrumentation as [facility]. Currently there are no coagulation studies available worldwide for children to 14 days, and no normal ranges. Performed By: #### 1 [id number] #### [facility] [address] [place] [address] Troponin 0 Hr.on 05-15-2024 Troponin HS 5.80 pg/mL Low 15.90-38.40 [facility] Comment on above: Result Comment: The 95% CI (Confidence Interval) PPV (Positive Predictive Value) for myocardial infarction in females is 38 pg/mL, in males 51 pg/mL. The results should be used in conjunction with clinical conditions of myocardial infarction. (Access High Sensitivity Troponin I Instructions For Use, Marilyn Savanna, December 2017) Performed By: #### 1 [id number] #### [facility] [address] [place] [address] UA with Cult [employer]flxon 05-15-20 24 Bilirubin Ql (U) Negative Normal Negative [facility] Comment on above: Performed By: #### 4 [id number] #### [facility] [address] [place] [address] Clarity (U) Clear Normal Clear [facility] Comment on above: Performed By: #### 4 [id number] #### [facility] [address] [place] [address] Color (U) Light-Yellow Normal Yellow [facility] Comment on above: Result Comment: Micr oscopic readings are only performed on those samples that meet specific criteria set forth by [facility]. Performed By: #### 4 [id number] #### [facility] [address] [place] [address] Glucose Ql (U) Negative Normal Negative [facility] Comment on above: Performed By: #### 4 [id number] #### [facility] [address] [place] [address] Hemoglobin Auto test strip (U) [Mass/Vol] Trace Abnormal Negative [facility] Comment on above: Performed By: #### 4 [id number] #### [facility] [address] [place] [address] Ketones Auto test strip Ql (U) Negative Normal Negative [facility] Comment on above: Performed By: #### 4 [id number] #### [facility] [address] [place] [address] Leukocyte esterase Auto test strip Ql (U) Negative Normal Negative [facility] Comment on above: Performed By: #### 4 [id number] #### [facility] [address] [place] [address] Nitrite Auto test strip Ql (U) Negative Normal Negative [facility] Comment on above: Performed By: #### 4 [id number] #### [facility] [address] [place] [address] pH (U) 7.0 [pH] Invalid Interpretation Code 5.0-9.0 [facility] Comment on above: Performed By: #### 4 [id number] #### [facility] [address] [place] [address] Protein Ql (U) Negative Normal Negative [facility] Comment on above: Performed By: #### 4 [id number] #### [facility] [address] [place] [address] Specific gravity (U) [Rel density] 1.023 Invalid Interpretation Code 1.005-1.030 [facility] Comment on above: Performed By: #### 4 [id number] #### [facility] [address] [place] [address] Urobilinogen (U) [Mass/Vol] 2 mg/dL Abnormal Negative [facility] Comment on above: Performed By: #### 4 [id number] #### [facility] [address] [place] [address] Type of Urine collection method Clean Catch Normal [facility] Comment on above: Performed By: #### 4 [id number] #### [facility] [address] [place] [address] URINALYSISOrdered By: SYSTEM SYSTEM on 05-15-2024 Bilirubin Ql (U) Negative Normal Negativemg/ d L [facility] UA Auto SS Clarity (U) Clear (05/15/24 4:46 PM) Normal Clear [facility] UA Auto SS Color (U) Light-Yellow 1 (05/15/24 4:46 PM) Normal Yellow [facility] UA Auto SS Comment on above: Interpretive Data: M icroscopic readings are only performed on those samples that meet specific criteria set forth by [facility]. Glucose Ql (U) Negative Normal [...] Desc Clean Catch (05/15/24 4:46 PM) Normal [facility] UA Auto SS XR Chest [...] BALDOMERO Technologist: MUKUL Technical Comments Radiation Dose: Ka,r in mGy = na DAP = na Normal [facility] eGFRon 05-15-2024 eGFR 91 mL/min/1.73 m2 Normal >=59 [facility] Comment on above: Performed By: #### 1 [id number] #### [facility] [address] [place] [address] Brain Natri. Peptideon 03-23 Natriuretic peptide B (Bld) [Mass/Vol] 143 pg/mL Normal <300 [facility] Comment on above: Result Comment: An age-independent cutoff point of 300 pg/ml has a 98% negative predictive value excluding acute heart failure. Performed By: #### B [place] ATTORNEY #### [facility] [address] [place] [address] Web Systems Developer: Juanjose Osorio MD Vascular duplex lower extrem ity venous lefton 03-23-2024 Left lower extremity edema without DVT. [facility] EXAM: VAS DUP LOWER EXTREMITY VENOUS [...] left groin. Upper and lower leg edema/cellulitis [employer] Install[employer] Details A raza scale, color Doppler imaging and spectral Doppler analysis ultrasound was performed. During the study longitudinal and transverse views were obtained. Pulsed wave doppler was performed. [facility] Sajan Sanchez Jr., MD - 03/23/2024 [...] IMPRESSION: Left lower extremity edema without DVT. [facility] Radiology Study observation (narrative) [facility] Vascular duplex lower extrem ity venous leftOrdered By: Sajan Sanchez on 03-23-2024 [facility] Work Phone: Basic Metabolic Profon 11-15 Anion gap [Moles/Vol] 6 mmol/L Low 9-17 [facility] Comment on above: Performed By: #### B MP #### [facility] [address] [place], [place] [id number] Web Systems Developer: Juanjose Osorio MD BUN/CRE Ratio 18 Normal 9-20 [facility] Comment on above: Performed By: #### B MP #### [facility] [address] [place], [place] [id number] Web Systems Developer: uJanjose Osorio MD Calcium [Mass/Vol] 9.3 mg/dL Normal 8.6-10.4 [facility] Comment on above: Performed By: #### B MP #### [facility] [address] [place], [place] [id number] Web Systems Developer: Juanjose Osorio MD Chloride [Moles/Vol] 103 mmol/L Normal 98-107 [facility] Comment on above: Performed By: #### B MP #### [facility] [address] [place], [place] [id number] Web Systems Developer: Juanjose Osorio MD CO2 [Moles/Vol] 30 mmol/L Normal 20-31 [facility] Comment on above: Performed By: #### B MP #### [facility] [address] [place], [place] [id number] Web Systems Developer: Juanjose Osorio MD Creatinine [Mass/Vol] 0.9 mg/dL Normal 0.7-1.2 [facility] Comment on above: Performed By: #### B MP #### [facility] [address] [place], [place] [id number] Web Systems Developer: Juanjose Osorio MD GFR/1.73 sq M.predicted among non-blacks MDRD (S/P/Bld) [Vol rate/Area] mL/min/{1.73_m2} Normal >60 [facility] Comment on above: Result Comment: These results [...] secretion. Performed By: #### B MP #### [facility] [address] [place] [address] Web Systems Developer: Juanjose Osorio MD Glucose [Mass/Vol] 88 mg/dL Normal 70-99 [facility] Comment on above: Performed By: #### B MP #### [facility] [address] [place] [address] Web Systems Developer: Juanjose Osorio MD Potassium [Moles/Vol] 4.2 mmol/L Normal 3.7-5.3 [facility] Comment on above: Performed By: #### B MP #### [facility] [address] [place] [address] Web Systems Developer: Juanjose Osorio MD Sodium [Moles/Vol] 139 mmol/L Normal 135-144 [facility] Comment on above: Performed By: #### B MP #### [facility] [address] [place] [address] Web Systems Developer: Juanjose Osorio MD Urea nitrogen [Mass/Vol] 16 mg/dL Normal 8-23 [facility] Comment on above: Performed By: #### B MP #### [facility] [address] [place] [address] Web Systems Developer: Juanjose Osorio MD PSA, Screeningon 11-16-2023 Prostatic Spec. Ag 1.10 ng/mL Normal 0.00-4.00 [facility] Comment on above: Result Comment: The Apollo ECLIA assay is used. Results obtained with different assay methods cannot be used interchangeably. Performed By: #### P SAS #### [facility] [address] [place] [address] Web Systems Developer: Sudhir Cheng MD CT Chest for screeningon Lung RADS 1, negative. Management: Low-dose CT chest one year. [facility] EXAM: CT LUNG [...] lingula. CORONARY ARTERIES: Coronary calcifications are moderate. [facility] Radiology Study observation (narrative) [facility] CT Chest for screeningOrdere d By: Sajan Sanchez on 11-02-[address] [facility] Work Phone: Vascular AAA screeningon FINDINGS/IMPRESSION: 1. Greatest transverse diameter of the aorta is 2.4 cm. 2. The iliac arteries are normal at 1.2 cm on the right and 1.2 cm on the left. 3. Occasional plaque is identified. 4. No abdominal aortic aneurysm. [facility] EXAM: VAS AAA SCREENING HISTORY: Screening for AAA COMPARISON: 07/12/2014 CT abdomen and pelvis. [facility] Sajan Sanchez Jr., [...] is identified. 4. No abdominal aortic aneurysm. [facility] Radiology Study observation (narrative) [facility] Vascular AAA screeningOrdere d By: Sajan Sanchez on 11-02-[address] [facility] Work Phone: CHEMISTRYOrdered By: SYSTEM SYSTEM on 11-27-2022 Anion [...] 81 mL/min/1.73 m2 Normal >=59mL/min/1 .73 m2 FT Chem S Glucose [Mass/Vol] 88 mg/dL Normal [...] ratio] 17 mg/mg Normal 10 - 20 [facility] Remisol CHEMISTRYOrdered By: Bernadette Garsia on 11-27-2022 Natriuretic peptide B (Bld) [Mass/Vol] 25 pg/mL Normal 5 - 80 pg/mL FT HemeManSS COAGULATIONOrdered By: Arpit Quinonez on 11-27-2022 aPTT Coag (PPP) [Time] 31.9 s Normal 25.1 - 36.5 second(s) [facility] Auto Coag INR Coag (PPP) [Relative time] 1.2 {INR} Invalid Interpretation Code [facility] Auto Coag PT Coag (PPP) [Time] 13.7 [...] Interpretation Code Negative [facility] UA Auto SS [place].plasma/Lithiu m.RBC (Bld) [Mass ratio] 0-3 /HPF Normal 0-3/HPF [facility] UA Auto SS Nitrite Ql (U) Positive *ABN* (11/27/22 6:30 PM) Invalid Interpretation Code Negative [facility] UA Auto SS pH (U) 6.5 *NA* (11/27/22 6:30 PM) Invalid Interpretation Code 5.0 - 9.0 [facility] UA Auto SS Protein (U) [Mass/Vol] Negative (11/27/22 6:30 PM) Normal Negative [facility] UA Auto SS Specific gravity (U) [Rel density] 1.015 *NA* (11/27/22 6:30 PM) Invalid Interpretation Code 1.005 - 1.030 [facility] UA Auto SS UA Spec Desc Clean Catch (11/27/22 6:30 PM) Normal [facility] UA Auto SS Urobilinogen Qn (U) [id number] {Tawny'U}/dL Normal 0.0 - 1.0 EU/dL [facility] UA Auto SS WBC Auto Ql (U) 1+ *ABN* (11/27/22 6:30 PM) Invalid Interpretation Code Negative [facility] UA Auto SS WBC LM.HPF (Urine sed) [#/Area] 6-15 /HPF Invalid Interpretation Code 0-5/HPF [facility] UA Auto SS LIPID PROFILEon 10-11-2022 CHOL-HDL RATIO NORM SEE BELOW Normal [facility] Comment on above: Result Comment: 3.3 - 4.4 LOW RISK 4.4 - 7.1 AVERAGE RISK 7.1 - 11.0 MODERATE RISK >11.0 HIGH RISK Performed By: #### C MP, LIPID #### [facility] [address] [address] [address] Rufina Ramirez Cholesterol [Mass/Vol] 122 mg/dL Normal <=200 [facility] Comment on above: Performed By: #### C MP, LIPID #### [facility] [address], [place] [address] Dr. Rufina Ramirez Cholesterol in HDL [Mass/Vol] 42 mg/dL Normal 40-60 [facility] Comment on above: Performed By: #### C MP, LIPID #### [facility] [address] [place], [place] [address] Dr. Rufina Ramirez Cholesterol in LDL [Mass/Vol] 70.2 mg/dL Normal [facility] Comment on above: Performed By: #### C MP, LIPID #### [facility] [address] [address] [address] Rufina Ramirez Cholesterol.total/Cho lesterol in HDL [Mass ratio] 2.9 {ratio} Normal [facility] Comment on above: Performed By: #### C MP, LIPID #### [facility] [address] [address] [address] Rufina Ramirez HDL NORMAL > or = 60 mg/dl - LOW CARDIOVASCULAR RISK <40 mg/dl - HIGH CARDIOVASCULAR RISK Normal [facility] Comment on above: Performed By: #### C MP, LIPID #### [facility] [address] [address] [address] Rufina Ramirez LDL CALC NORMAL SEE BELOW Normal [facility] Comment on above: Result Comment: <100 mg/dl OPTIMAL 100 - 129 mg/dl NEAR OR ABOVE OPTIMAL 130 - 159 mg/dl BORDERLINE HIGH 160 - 189 mg/dl HIGH >190 mg/dl VERY HIGH Performed By: #### C MP, LIPID #### [facility] [address] [place] [address] Dr. Rufina Ramirez Triglyceride [Mass/Vol] 49 mg/dL Normal <=150 [facility] Comment on above: Performed By: #### C MP, LIPID #### [facility] [address] [place] [address] Dr. Rufina Ramirez VLDL CALC 9.8 mg/dL Normal [facility] Comment on above: Performed By: #### C MP, LIPID #### [facility] [address] [address] [address] Rufina Ramirez PROF 14(COMP METB)on 023 Albumin [Mass/Vol] 3.3 g/dL Critically low 3.4-5.0 [facility] Comment on above: Performed By: #### C MP, LIPID #### [facility] [address] [place] [address] Dr. Rufina Ramirez Albumin/Globulin [Mass ratio] 0.9 {ratio} Normal [facility] Comment on above: Performed By: #### C MP, LIPID #### [facility] [address] [address] [address] Rufina Ramirez ALP [Catalytic activity/Vol] 71 U/L Normal 46-116 [facility] Comment on above: Performed By: #### C MP, LIPID #### [facility] [address] [address] [address] Rufina Ramirez ALT [Catalytic activity/Vol] 17 U/L Normal 16-63 [facility] Comment on above: Performed By: #### C MP, LIPID #### [facility] [address] [address] [address] Rufina Ramirez Anion gap [Moles/Vol] 10.5 mmol/L Normal [facility] Comment on above: Performed By: #### C MP, LIPID #### [facility] [address] [place] [address] Dr. Rufina Ramirez AST [Catalytic activity/Vol] 16 U/L Normal 15-37 [facility] Comment on above: Performed By: #### C MP, LIPID #### [facility] [address] [place] [address] Dr. Rufina Ramirez Bilirubin [Mass/Vol] 0.8 mg/dL Normal 0.2-1.0 [facility] Comment on above: Performed By: #### C MP, LIPID #### [facility] [address] [place] [address] Dr. Rufina Ramirez Calcium [Mass/Vol] 8.8 mg/dL Normal 8.5-10.1 [facility] Comment on above: Performed By: #### C MP, LIPID #### [facility] [address] [place] [address] Dr. Rufina Ramirez Chloride [Moles/Vol] 104 mmol/L Normal 98-107 [facility] Comment on above: Performed By: #### C MP, LIPID #### [facility] [address] [address] [address] Rufina Ramirez CO2 [Moles/Vol] 30.7 mmol/L Normal 21.0-32.0 [facility] Comment on above: Performed By: #### C MP, LIPID #### [facility] [address] [place] [address] Dr. Rufina Ramirez Creatinine [Mass/Vol] 0.93 mg/dL Normal 0.70-1.30 [facility] Comment on above: Performed By: #### C MP, LIPID #### [facility] [address] [place] [address] Dr. Rufina Ramirez EGFR-AF BRITISH >60 Normal >=60 [facility] Comment on above: Performed By: #### C MP, LIPID #### [facility] [address] [place] [address] Dr. Rufina Ramirez EGFR-NON AF BRITISH >60 Normal >=60 [facility] Comment on above: Performed By: #### C MP, LIPID #### [facility] [address] [place] [address] Dr. Rufina Ramirez Globulin (S) [Mass/Vol] 3.6 g/dL Normal [facility] Comment on above: Performed By: #### C MP, LIPID #### [facility] [address] [place] [address] Dr. Rufina Ramirez Glucose [Mass/Vol] 95 mg/dL Normal 74-106 [facility] Comment on above: Performed By: #### C MP, LIPID #### [facility] [address] [place] [address] Dr. Rufina Ramirez Potassium [Moles/Vol] 4.2 mmol/L Normal 3.5-5.1 [facility] Comment on above: Performed By: #### C MP, LIPID #### [facility] [address] [place] [address] Dr. Rufina Ramirez Protein [Mass/Vol] 6.9 g/dL Normal 6.4-8.2 [facility] Comment on above: Performed By: #### C MP, LIPID #### [facility] [address] [place] [address] Dr. Rufina Ramirez Sodium [Moles/Vol] 141 mmol/L Normal 136-145 [facility] Comment on above: Performed By: #### C MP, LIPID #### [facility] [address] [place] [address] Dr. Rufina Ramirez Urea nitrogen [Mass/Vol] 16.0 mg/dL Normal 7.0-18.0 [facility] Comment on above: Performed By: #### C MP, LIPID #### [facility] [address] [place] [address] Dr. Rufina Ramirez Urea nitrogen/Creatinine [Mass ratio] 17.2 mg/mg Normal [facility] Comment on above: Performed By: #### C MP, LIPID #### [facility] [address] [place] [address] Dr. Rufina Ramirez CBC AUTO DIFFon 06-26-2022 BASO # 0.0 103/ul Normal 0.0-0.1 [facility] Comment on above: Performed By: #### C BC #### [facility] [address] [place] [address] Dr. Rufina Ramirez Basophils/100 WBC (Bld) 0.4 % Normal 0.2-2.0 [facility] Comment on above: Performed By: #### C BC #### [facility] [address] [place] [address] Dr. Rufina Ramirez EO # 0.0 103/ul Normal 0.0-0.7 [facility] Comment on above: Performed By: #### C BC #### [facility] [address] [place] [address] Dr. Rufina Ramirez Eosinophils/100 WBC (Bld) 0.4 % Critically low 0.9-7.0 [facility] Comment on above: Performed By: #### C BC #### [facility] [address] [place] [address] Dr. Rufina Ramirez Erythrocyte distribution width (RBC) [Ratio] 13.2 % Normal 11.0-15.0 [facility] Comment on above: Performed By: #### C BC #### [facility] [address] [place] [address] Dr. Rufina Ramirez Hematocrit (Bld) [Volume fraction] 39.3 % Critically low 42.0-54.0 [facility] Comment on above: Performed By: #### C BC #### [facility] [address] [place] [address] Dr. Rufina Ramirez Hemoglobin (Bld) [Mass/Vol] 13.7 g/dL Critically low 14.0-18.0 [facility] Comment on above: Performed By: #### C BC #### [facility] [address] [place] [address] Dr. Rufina Ramirez IG # 0.01 10e3/ul Normal 0.00-0.03 [facility] Comment on above: Performed By: #### C BC #### [facility] [address] [place] [address] Dr. Rufina Ramirez IG % 0.2 % Normal 0.0-0.5 [facility] Comment on above: Performed By: #### C BC #### [facility] [address] [place] [address] Dr. uRfina Ramirez LYMPH # 1.8 103/ul Normal 1.2-3.8 [facility] Comment on above: Performed By: #### C BC #### [facility] [address] [place] [address] Dr. Rufina Ramirez Lymphocytes/100 WBC (Bld) 31.6 % Normal 20.5-60.0 [facility] Comment on above: Performed By: #### C BC #### [facility] [address] [place] [address] Dr. Rufina Ramirez MANUAL DIFF REQ NO Normal [facility] Comment on above: Performed By: #### C BC #### [facility] [address] [place] [address] Dr. Rufina Ramirez MCH (RBC) [Entitic mass] 32.9 pg Normal 25.9-34.0 [facility] Comment on above: Performed By: #### C BC #### [facility] [address] [place] [address] Dr. Rufina Ramirez MCHC (RBC) [Mass/Vol] 34.9 g/dL Normal 29.9-35.2 [facility] Comment on above: Performed By: #### C BC #### [facility] [address] [place] [address] Dr. Rufina Ramirez MCV (RBC) [Entitic vol] 94.5 fL Critically high 80.0-94.0 [facility] Comment on above: Performed By: #### C BC #### [facility] [address] [address] [address] Rufina Ramirez MONO # 0.5 103/ul Normal 0.3-0.8 [facility] Comment on above: Performed By: #### C BC #### [facility] [address] [address] [address] Rufina Ramirez Monocytes/100 WBC (Bld) 8.5 % Normal 1.7-12.0 [facility] Comment on above: Performed By: #### C BC #### [facility] [address] [place] [address] Dr. Rufina Ramirez NEUT # 3.3 103/ul Normal 1.4-6.5 [facility] Comment on above: Performed By: #### C BC #### [facility] [address] [place] [address] Dr. Rufina Ramirez Neutrophils/100 WBC (Bld) 58.9 % Normal 43.0-75.0 [facility] Comment on above: Performed By: #### C BC #### [facility] [address] [place] [address] Dr. Rufina Ramirez Platelet mean volume (Bld) [Entitic vol] 12.1 fL Normal 9.5-13.5 [facility] Comment on above: Performed By: #### C BC #### [facility] [address] [place] [address] Dr. Rufina Ramirez PLT 109 103/ul Critically low 150-450 [facility] Comment on above: Performed By: #### C BC #### [facility] [address] [place], [place] [address] Dr. Rufina Ramirez RBC 4.16 106/ul Critically low 4.70-6.10 [facility] Comment on above: Performed By: #### C BC #### [facility] [address] [place] [address] Dr. Rufina Ramirez WBC 5.6 103/ul Normal 4.0-11.0 [facility] Comment on above: Performed By: #### C BC #### [facility] [address] [place] [address] Dr. Rufina Ramirez POINT OF CARE GLUCOSEon 05-31 Glucose [Mass/Vol] 97 mg/dL Normal 74-106 [facility] Comment on above: Performed By: #### P OCGLUC #### [facility] [address] [place] [address] Dr. Rufina Ramirez PROF CHEM 8 (BAS METB)on Anion gap [Moles/Vol] 11.2 mmol/L Normal [facility] Comment on above: Performed By: #### B MP #### [facility] [address] [place] [address] Dr. Rufina Ramirez Calcium [Mass/Vol] 8.9 mg/dL Normal 8.5-10.1 [facility] Comment on above: Performed By: #### B MP #### [facility] [address] [place] [address] Dr. Rufina Ramirez Chloride [Moles/Vol] 103 mmol/L Normal 98-107 [facility] Comment on above: Performed By: #### B MP #### [facility] [address] [place] [address] Dr. Rufina Ramirez CO2 [Moles/Vol] 27.2 mmol/L Normal 21.0-32.0 [facility] Comment on above: Performed By: #### B MP #### [facility] [address] [place] [address] Dr. Rufina Ramirez Creatinine [Mass/Vol] 0.81 mg/dL Normal 0.70-1.30 [facility] Comment on above: Performed By: #### B MP #### [facility] [address] [place] [address] Dr. Rufina Ramirez EGFR-AF BRITISH >60 Normal >=60 [facility] Comment on above: Performed By: #### B MP #### [facility] [address] [place] [address] Dr. Rufina Ramirez EGFR-NON AF BRITISH >60 Normal >=60 [facility] Comment on above: Performed By: #### B MP #### [facility] [address] [address] [address] Rufina Ramirez Glucose [Mass/Vol] 95 mg/dL Normal 74-106 [facility] Comment on above: Performed By: #### B MP #### [facility] [address] [address] [address] Rufina Ramirez Potassium [Moles/Vol] 4.4 mmol/L Normal 3.5-5.1 [facility] Comment on above: Performed By: #### B MP #### [facility] [address] [address] [address] Rufina Ramirez Sodium [Moles/Vol] 137 mmol/L Normal 136-145 [facility] Comment on above: Performed By: #### B MP #### [facility] [address] [address] [address] Rufina Ramirez Urea nitrogen [Mass/Vol] 17.0 mg/dL Normal 7.0-18.0 [facility] Comment on above: Performed By: #### B MP #### [facility] [address] [address] [address] Rufina Ramirez Urea nitrogen/Creatinine [Mass ratio] 21.0 mg/mg Normal [facility] Comment on above: Performed By: #### B MP #### [facility] [address] [address] [address] Rufina Ramirez CHEMISTRYOrdered By: SYSTEM SYSTEM on 05-15-2022 Troponin I.cardiac [Mass/Vol] 5.10 pg/mL Low 15.90 - 38.40 pg/mL [facility] Remisol Anion gap [Moles/Vol] 14 mmol/L Normal 6 - 16 mEq/L [facility] Remisol Calcium [Mass/Vol] 8.9 mg/dL Normal 8.9 - 11. 1 mg/dL [facility] Remisol Chloride [Moles/Vol] 100 mmol/L Low 101 - 1 11 mmol/L [facility] Remisol CO2 [Moles/Vol] 26 mmol/L Normal 21 - 31 mmol/L [facility] Remisol Creatinine [Mass/Vol] 1.1 mg/dL Normal 0.5 - 1.3 mg/dL [facility] Remisol GFR/1.73 sq M.predicted among blacks MDRD (S/P/Bld) [Vol rate/Area] mL/min/1.73 m2 Normal >=59mL/min/1 .73 m2 [facility] Chem S GFR/1.73 sq M.predicted among non-blacks MDRD (S/P/Bld) [Vol rate/Area] mL/min/1.73 m2 Normal >=59mL/min/1 .73 m2 [facility] Chem S Glucose [Mass/Vol] 104 mg/dL Normal [...] Normal >=59mL/min/1 .73 m2 [facility] Chem S Globulin (S) [Mass/Vol] 2.8 g/dL [...] 5.3 E9/L Normal 4.0 - 11.0 E9/L FT HemeAutoSS CHEMISTRYOrdered By: SYSTEM SYSTEM on 08-31-2021 Anion gap [Moles/Vol] 11 mmol/L Normal 6 - 16 mEq/L F [facility] Remisol Calcium [Mass/Vol] 9.2 mg/dL Normal 8.9 [...] rate/Area] mL/min/1.73 m2 Normal >=59mL/min/1 .73 m2 [facility] Chem S Glucose [Mass/Vol] 78 mg/dL Normal [...] 0.5 % Normal 0.0 - 8.0 % FT HemeAutoSS Eosinophils/Leukocyte s Auto (Bld) [Pure # [...] .73 m2 FT Chem S Glucose [Mass/Vol] 84 mg/dL Normal [...] pg/mL [facility] Remisol COAGULATIONOrdered By: Abel on Blair on 08-30-2021 Fibrin D-dimer FEU [...] 97.5 fL Normal 80.0 - 100.0 fL [facility] HemeAutoSS Morphology Mike (Bld) [Interp] Normal (08/30/21 6:02 AM) Normal [facility] HemeManSS Platelet mean volume (Bld) [Entitic vol] 11.5 fL High 6.4 - 10.8 fL [facility] HemeAutoSS Platelets (Bld) [#/Vol] 117.0 E9/L Low 150.0 - 500.0 E9/L [facility] HemeAutoSS Platelets Large LM Ql (Bld) Present (08/30/21 6:02 AM) Normal [facility] HemeManSS RBC (Bld) [#/Vol] 4.2 E12/L Low 4.3 - 5.9 E12/L [facility] HemeAutoSS WBC corrected for nucl RBC Auto (Bld) [#/Vol] 6.7 E9/L Normal 4.0 - 11.0 E9/L [facility] HemeAutoSS Reference Laboratory Testing Ordered By: Nora DomainUser on 08-30-2021 Cortisol [Mass/Vol] 1.9 ug/dL Invalid Interpretation Code [facility] SendOutsSS Comment on above: Result Comment: Antelmo isol AM 6.2 - 19.4 Cortisol PM 2.3 - 11.9 Performed at: [facility] [address] [id number] PhD Sachin Garcia PSA ScreeningOrdered By: Fely Arteaga on 03-05-2021 [employer] Phone: Comprehensive Metabolic Pane lOrdered By: Doug Arteaga on 02-16-2021 Albumin [Mass/Vol] 3.8 g/dL 3.5 - 5.2 g/dL [employer] Phone: Albumin/Globulin Ratio NOT REPORTED [employer] Phone: ALP (Bld) [Catalytic activity/Vol] 70 U/L 40 - 129 U/L [employer] Phone: ALT [Catalytic activity/Vol] 12 U/L 5 - 41 U/L [employer] Phone: Anion gap [Moles/Vol] 8 mmol/L Low 9 - 17 mmol/L [employer] Phone: AST [Catalytic activity/Vol] 16 U/L <40 [employer] Phone: Bilirubin [Mass/Vol] 0.61 mg/dL 0.30 - 1.20 mg/dL [employer] Phone: Calcium [Mass/Vol] 8.8 mg/dL 8.6 - 10. 4 mg/dL [employer] Phone: Chloride [Moles/Vol] 105 mmol/L 98 - 10 7 mmol/L [employer] Phone: CO2 [Moles/Vol] 27 mmol/L 20 - 31 mmol/L [employer] Phone: Creatinine [Mass/Vol] 0.84 mg/dL 0.70 - 1.20 mg/dL [employer] Phone: Free PSA/Total PSA [Mass fraction] 6.6 g/dL 6.4 - 8.3 g/dL [employer] Phone: GFR >60 >60 mL/min Amen. Phone: GFR Non- >60 >60 mL/min [employer] Phone: GFR/1.73 sq M.predicted MDRD (S/P/Bld) [Vol rate/Area] [employer] Phone: Comment on above: Average GFR for 60-6 9 years old: 85 mL/min/1.73sq m Chronic Kidney Disease: <60 mL/min/1.73sq m Kidney failure: <15 mL/min/1.73sq m eGFR calculated using average adult body mass. Additional eGFR calculator available at: http://www.[employer]/multiple_crcl_2012.htm GFR/1.73 sq M.predicted MDRD (S/P/Bld) [Vol rate/Area] NOT REPORTED [employer] Phone: Glucose [Mass/Vol] 86 mg/dL 70 - 99 mg/dL [employer] Phone: Interpretation and review of laboratory results Abnormal [employer] Phone: Potassium [Moles/Vol] 3.9 mmol/L 3.7 - 5.3 mmol/L [employer] Phone: Sodium [Moles/Vol] 140 mmol/L 135 - 144 mmol/L [employer] Phone: Urea nitrogen (BldV) [Mass/Vol] 14 mg/dL 8 - 23 mg/dL [employer] Phone: Urea nitrogen/Creatinine (Bld) [Mass ratio] 17 [employer] Phone: Lipid PanelOrdered By: Doug Arteaga on 02-16-2021 Cholesterol [Mass/Vol] 125 mg/dL <200 [employer] Phone: Comment on above: Cholesterol Guidelines: <200 Desirable 200-240 Borderline >240 Undesirable Cholesterol in HDL [Mass/Vol] 40 mg/dL Low >40 [employer] Phone: Comment on above: HDL Guidelines: <40 Undesirable 40-59 Borderline >59 Desirable Cholesterol in LDL [Mass/Vol] 73 mg/dL 0 - 130 mg/dL [employer] Phone: Comment on above: LDL Guidelines: <100 Desirable 100-129 Near to/above Desirable 130-159 Borderline >159 Undesirable Direct (measured) LDL and calculated LDL are not interchangeable tests. Cholesterol in VLDL [Mass/Vol] NOT REPORTED 1 - 30 mg/dL [employer] Phone: Cholesterol.total/Cho lesterol in HDL [Mass ratio] 3.1 {ratio} <5 [employer] Phone: Interpretation and review of laboratory results Abnormal [employer] Phone: Triglyceride [Mass/Vol] 60 mg/dL <150 [employer] Phone: Comment on above: Triglyceride Guidelines: <150 Desirable 150-199 Borderline 200-499 High >499 Very high Based on AHA Guidelines for fasting triglyceride, February 2012. [employer] Phone: No Panel InformationOrdered By: Doug Arteaga on 02-16-2021 [employer] Phone: Patient Fasting?Ordered By: Doug Arteaga on 02-16-2021 Patient Fasting? yes [employer] Phone: [employer] Phone: TSH without ReflexOrdered By : Doug Arteaga on 02-16-2021 TSH Qn 1.60 m[IU]/L [employer] Phone: CBC Auto Differentialon -0 Basophils (Bld) [#/Vol] 0.00 10*3/uL [place] Basophils/100 WBC (Bld) 0 % 0 - 2 % [place] Differential Type YES [place] Eosinophils (Bld) [#/Vol] 0.10 10*3/uL [place] Eosinophils/100 WBC (Bld) 1 % 0 - 5 % [place] Erythrocyte distribution width (RBC) [Ratio] 14.2 % 12.1 - 15.2 % [place] Hematocrit (Bld) [Volume fraction] 42.4 % 41 - 53 % [place] Hemoglobin (Bld) [Mass/Vol] 14.4 g/dL 13.5 - 17.5 g/dL [place] Interpretation and review of laboratory results Abnormal [place] Lymphocytes (Bld) [#/Vol] 3.20 10*3/uL [place] Lymphocytes/100 WBC (Bld) 42 % 13 - 44 % [place] MCH (RBC) [Entitic mass] 34.1 pg High 26 - 34 pg [place] MCHC (RBC) [Mass/Vol] 34.0 g/dL 31 - 37 g/dL [place] MCV (RBC) [Entitic vol] 100.3 fL High 80 - 100 fL [place] Monocytes (Bld) [#/Vol] 0.60 10*3/uL [place] Monocytes/100 WBC (Bld) 8 % 5 - 9 % [place] Platelet mean volume (Bld) [Entitic vol] NOT REPORTED 6 - 12 fL [place] Platelets (Bld) [#/Vol] NOT REPORTED [place] Platelets (Bld) [#/Vol] 123 10*3/uL Low [place] RBC (Bld) [#/Vol] 4.23 10*6/uL Low 4.5 - 5.9 m/uL [place] RBC morphology finding Nom (Bld) NOT REPORTED [place] Segmented neutrophils/100 WBC (Bld) 49 % 39 - 75 % [place] Segs Absolute 3.70 [place] WBC (Bld) [#/Vol] NOT REPORTED per 100 WBC [place] WBC (Bld) [#/Vol] 7.7 10*3/uL [place] WBC Morphology NOT REPORTED [place] CTA HEAD W WO CONTRASTon 1. No acute intracranial findings. 2. Unremarkable intracranial CT angiograms [place], [place], [place] Incoming Radiant Results From [employer] - 06/02/2020 3:26 PM EST EXAMINATION: CTA [...] intracranial findings. 2. Unremarkable intracranial CT angiograms [facility], [place] EXAMINATION: CTA HEAD W WO CONTRAST HISTORY: [...] areas of abnormal intra-axial or extra-axial enhancement. [place] Comprehensive Metabolic Pane herminio 06-02-2020 Albumin [Mass/Vol] 4.3 g/dL 3.5 - 5.2 g/dL [place] Albumin/Globulin [Mass ratio] NOT REPORTED [place] ALP [Catalytic activity/Vol] 74 U/L 40 - 129 U/L [place] ALT [Catalytic activity/Vol] 13 U/L 5 - 41 U/L [place] Anion gap [Moles/Vol] 5 mmol/L Low 9 - 17 mmol/L [place] AST [Catalytic activity/Vol] 18 U/L <40 [place] Bilirubin Ql (U) 0.87 mg/dL 0.3 - 1.2 mg/dL [place] Bun/Cre Ratio 17 [place], [place] Calcium [Mass/Vol] 9.1 mg/dL 8.6 - 10. 4 mg/dL [place] Chloride [Moles/Vol] 102 mmol/L 98 - 10 7 mmol/L [place] CO2 [Moles/Vol] 30 mmol/L 20 - 31 mmol/L [place] Creatinine [Mass/Vol] 0.76 mg/dL 0.7 - 1.2 mg/dL [place] GFR >60 >60 mL/min [place] GFR Non- >60 >60 mL/min [place] GFR/1.73 sq M predicted among non-blacks MDRD (S/P/Bld) [Vol rate/Area] [place], [place] Comment on above: Average GFR for 60-6 9 years old: 85 mL/min/1.73sq m Chronic Kidney Disease: <60 mL/min/1.73sq m Kidney failure: <15 mL/min/1.73sq m eGFR calculated using average adult body mass. Additional eGFR calculator available at: http://www.[employer]/multiple_crcl_2012.htm GFR/1.73 sq M predicted among non-blacks MDRD (S/P/Bld) [Vol rate/Area] NOT REPORTED [place] Glucose [Mass/Vol] 100 mg/dL High 70 - 99 mg/dL [place] Interpretation and review of laboratory results Abnormal [place] Potassium [Moles/Vol] 4.1 mmol/L 3.7 - 5.3 mmol/L [place] Protein [Mass/Vol] 6.7 g/dL 6.4 - 8.3 g/dL [place] Sodium [Moles/Vol] 137 mmol/L 135 - 144 mmol/L [place] Urea nitrogen [Mass/Vol] 13 mg/dL 8 - 23 mg/dL [place] Glucose, Whole Bloodon 06-02 Glucose [Mass/Vol] 83 mg/dL 65 - 99 mg/dL [place] Glucose [Mass/Vol] 65 mg/dL 65 - 99 mg/dL [place] Otheron 06-02-2020 Immature granulocytes (Bld) [#/Vol] NOT REPORTED [place] Hematologyon 01-19-2020 Basophils (Bld) [#/Vol] 0.00 10*3/uL [place] Basophils/100 WBC (Bld) 0 % 0 - 2 % [place] Eosinophils (Bld) [#/Vol] 0.10 10*3/uL [place] Eosinophils/100 WBC (Bld) 1 % 0 - 5 % [place] Hematocrit (Bld) [Volume fraction] 43.1 % 41 - 53 % [place] Hemoglobin (Bld) [Mass/Vol] 14.5 g/dL 13.5 - 17.5 g/dL [place] Lymphocytes (Bld) [#/Vol] 2.40 10*3/uL [place] Lymphocytes/100 WBC (Bld) 30 % 13 - 44 % [place] MCH (RBC) [Entitic mass] 33.2 pg 26 - 34 pg [place] MCV (RBC) [Entitic vol] 98.7 fL 80 - 100 fL [place] Monocytes (Bld) [#/Vol] 0.60 10*3/uL [place] Monocytes/100 WBC (Bld) 8 % 5 - 9 % [place] Platelets (Bld) [#/Vol] NOT REPORTED [place] Platelets (Bld) [#/Vol] 114 10*3/uL [place] RBC (Bld) [#/Vol] 4.37 10*6/uL Low 4.5 - 5.9 m/uL [place], [place] RBC morphology finding Nom (Bld) NOT REPORTED [place] WBC (Bld) [#/Vol] NOT REPORTED per 100 WBC [place] WBC (Bld) [#/Vol] 8.0 10*3/uL [place] Metabolic Panelon 01-19-2020 Anion gap [Moles/Vol] 9 mmol/L 9 - 17 mmol/L [place] Calcium [Mass/Vol] 9.9 mg/dL 8.6 - 10. 4 mg/dL [place] Chloride [Moles/Vol] 103 mmol/L 98 - 10 7 mmol/L [place] CO2 [Moles/Vol] 22 mmol/L 20 - 31 mmol/L [place] Creatinine [Mass/Vol] 0.9 mg/dL 0.7 - 1.2 mg/dL [place] GFR/1.73 sq M predicted among non-blacks MDRD (S/P/Bld) [Vol rate/Area] [place] Comment on above: Average GFR for 60-6 9 years old: 85 mL/min/1.73sq m Chronic Kidney Disease: <60 mL/min/1.73sq m Kidney failure: <15 mL/min/1.73sq m eGFR calculated using average adult body mass. Additional eGFR calculator available at: http://www.[employer]/multiple_crcl_2012.htm GFR/1.73 sq M predicted among non-blacks MDRD (S/P/Bld) [Vol rate/Area] NOT REPORTED [place] Glucose [Mass/Vol] 98 mg/dL 70 - 99 mg/dL [place] Potassium [Moles/Vol] 4.3 mmol/L 3.7 - 5.3 mmol/L [place] Sodium [Moles/Vol] 134 mmol/L Low 135 - 144 mmol/L [place], [place] Urea nitrogen [Mass/Vol] 13 mg/dL 8 - 23 mg/dL [place], [place] Otheron 01-19-2020 EXAM: CT HEAD WO [...] SOFT TISSUES: Unremarkable. Moderate intracranial carotid atherosclerosis. [place] No CT evidence of acute intracranial abnormality. [place] Incoming Radiant Results From [employer] - 01/19/2020 4:15 PM EDT EXAM: CT [...] No CT evidence of acute intracranial abnormality. [place] Bun/Cre Ratio 14 [place], [place] GFR >60 >60 mL/min [place] GFR Non- >60 >60 mL/min [place] Interpretation and review of laboratory results Abnormal [place], [place] Differential Type YES [place] Erythrocyte distribution width (RBC) [Ratio] 13.4 % 12.1 - 15.2 % [place] Immature granulocytes (Bld) [#/Vol] NOT REPORTED [place] Interpretation and review of laboratory results Abnormal [place] MCHC (RBC) [Mass/Vol] 33.7 g/dL 31 - 37 g/dL [place], [place] Platelet mean volume (Bld) [Entitic vol] NOT REPORTED 6 - 12 fL [place] Segmented neutrophils/100 WBC (Bld) 61 % 39 - 75 % [place] Segs Absolute 4.90 [place], [place] WBC Morphology NOT REPORTED [place] Brain Natriuretic Peptideon 01-14-2020 Natriuretic peptide B (Bld) [Mass/Vol] Pro-BNP Reference Range: [place], [place] Comment on above: Rule Out: <300 Horn Zone: Age <50 300-450 Age 50-75 300-900 Age >75 300-1800 Usually represents mild to moderate HF but other cardiopulmonary causes cannot be ruled out. Rule In: Age <50 >450 Age 50-75 >900 Age >75 >1800 Natriuretic peptide B (Bld) [Mass/Vol] 117 pg/mL <300 [place], [place] Comment on above: Pro-BNP results jackelin ot be compared to BNP results. CBC Auto Differentialon 12-28 Basophils (Bld) [#/Vol] 0.00 10*3/uL [place] Basophils/100 WBC (Bld) 1 % 0 - 2 % [place] Differential Type YES [place] Eosinophils (Bld) [#/Vol] 0.00 10*3/uL [place] Eosinophils/100 WBC (Bld) 0 % 0 - 5 % [place] Erythrocyte distribution width (RBC) [Ratio] 13.8 % 12.1 - 15.2 % [place] Hematocrit (Bld) [Volume fraction] 44.5 % 41 - 53 % [place] Hemoglobin (Bld) [Mass/Vol] 15.0 g/dL 13.5 - 17.5 g/dL [place] Interpretation and review of laboratory results Abnormal [place] Lymphocytes (Bld) [#/Vol] 1.90 10*3/uL [place] Lymphocytes/100 WBC (Bld) 26 % 13 - 44 % [place] MCH (RBC) [Entitic mass] 33.3 pg 26 - 34 pg [place] MCHC (RBC) [Mass/Vol] 33.6 g/dL 31 - 37 g/dL [place] MCV (RBC) [Entitic vol] 99.0 fL 80 - 100 fL [place] Monocytes (Bld) [#/Vol] 0.40 10*3/uL [place], [place] Monocytes/100 WBC (Bld) 6 % 5 - 9 % [place] Platelet mean volume (Bld) [Entitic vol] NOT REPORTED 6 - 12 fL [place] Platelets (Bld) [#/Vol] 135 10*3/uL [place] Platelets (Bld) [#/Vol] NOT REPORTED [place] RBC (Bld) [#/Vol] 4.49 10*6/uL Low 4.5 - 5.9 m/uL [place] RBC morphology finding Nom (Bld) NOT REPORTED [place] Segmented neutrophils/100 WBC (Bld) 67 % 39 - 75 % [place] Segs Absolute 4.80 [place] WBC (Bld) [#/Vol] NOT REPORTED per 100 WBC [place] WBC (Bld) [#/Vol] 7.2 10*3/uL [place] WBC Morphology NOT REPORTED [place] Comprehensive Metabolic Pane herminio 01-14-2020 Albumin [Mass/Vol] 4.2 g/dL 3.5 - 5.2 g/dL [place] Albumin/Globulin [Mass ratio] NOT REPORTED [place] ALP [Catalytic activity/Vol] 77 U/L 40 - 129 U/L [place] ALT [Catalytic activity/Vol] 13 U/L 5 - 41 U/L [place] Anion gap [Moles/Vol] 11 mmol/L 9 - 17 mmol/L [place] AST [Catalytic activity/Vol] 22 U/L <40 [place] Bilirubin Ql (U) 1.08 mg/dL 0.3 - 1.2 mg/dL [place] Bun/Cre Ratio 16 [place], [place] Calcium [Mass/Vol] 10.1 mg/dL 8.6 - 10. 4 mg/dL [place] Chloride [Moles/Vol] 105 mmol/L 98 - 10 7 mmol/L [place] CO2 [Moles/Vol] 23 mmol/L 20 - 31 mmol/L [place] Creatinine [Mass/Vol] 0.8 mg/dL 0.7 - 1.2 mg/dL [place] GFR >60 >60 mL/min [place] GFR Non- >60 >60 mL/min [place] GFR/1.73 sq M predicted among non-blacks MDRD (S/P/Bld) [Vol rate/Area] NOT REPORTED [place] GFR/1.73 sq M predicted among non-blacks MDRD (S/P/Bld) [Vol rate/Area] [place] Comment on above: Average GFR for 60-6 9 years old: 85 mL/min/1.73sq m Chronic Kidney Disease: <60 mL/min/1.73sq m Kidney failure: <15 mL/min/1.73sq m eGFR calculated using average adult body mass. Additional eGFR calculator available at: http://www.[employer]/multiple_crcl_2012.htm Glucose [Mass/Vol] 104 mg/dL High 70 - 99 mg/dL [place] Interpretation and review of laboratory results Abnormal [place] Potassium [Moles/Vol] 4.5 mmol/L 3.7 - 5.3 mmol/L [place] Protein [Mass/Vol] 7.3 g/dL 6.4 - 8.3 g/dL [place] Sodium [Moles/Vol] 139 mmol/L 135 - 144 mmol/L [place] Urea nitrogen [Mass/Vol] 13 mg/dL 8 - 23 mg/dL [place] D-Dimer, Quantitativeon 12-28 D-Dimer, Quant 0.45 [place] Comment on above: When combined with [...] 2.2 mg/dL 1.6 - 2 .6 mg/dL [place] Otheron 01-14-2020 Immature granulocytes (Bld) [#/Vol] NOT REPORTED 0 % [place] Troponinon 01-14-2020 Troponin I.cardiac [Mass/Vol] [place] Comment on above: Reference Range: <0.03 [...] diagnosis. Troponin T.cardiac [Mass/Vol] ug/L <0.03 ng/mL [place] Comment on above: Troponin T results c annot be compared to Troponin-I results. Troponin, High Sensitivity NOT REPORTED 0 - 22 ng/L [place] Troponin I.cardiac [Mass/Vol] [place] Comment on above: Reference Range: <0.03 [...] diagnosis. Troponin T.cardiac [Mass/Vol] ug/L <0.03 ng/mL [place] Comment on above: Troponin T results c annot be compared to Troponin-I results. Troponin, High Sensitivity NOT REPORTED 0 - 22 ng/L [place] XR CHEST PORTABLEon 01-14-20 20 Negative chest. [facility] [place], [place] Incoming Radiant Results From [employer] - 01/14/2020 3:26 PM EDT EXAM: XR CHEST PORTABLE HISTORY: Reason for exam:->palpitations tachycardia, 64-year-old male. COMPARISON: Chest 11/19/2019. TECHNIQUE: AP portable chest 1420 hours. FINDINGS: Heart size normal. Lungs clear. Bony thorax and upper abdomen normal. IMPRESSION: Negative chest. [place] EXAM: XR CHEST PORTABLE HISTORY: Reason for exam:->palpitations tachycardia, 64-year-old male. COMPARISON: Chest 11/19/2019. TECHNIQUE: AP portable chest 1420 hours. FINDINGS: Heart size normal. Lungs clear. Bony thorax and upper abdomen normal. [place] Lipid Panelon 12-03-2019 Cholesterol [Mass/Vol] 111 mg/dL <200 [place] Comment on above: Cholesterol Guidelines: <200 Desirable 200-240 Borderline >240 Undesirable Cholesterol in HDL [Mass/Vol] 38 mg/dL Low >40 [place] Comment on above: HDL Guidelines: <40 Undesirable 40-59 Borderline >59 Desirable Cholesterol in LDL [Mass/Vol] 60 mg/dL 0 - 130 mg/dL [place] Comment on above: LDL Guidelines: <100 Desirable 100-129 Near to/above Desirable 130-159 Borderline >159 Undesirable Direct (measured) LDL and calculated LDL are not interchangeable tests. Cholesterol in VLDL [Mass/Vol] NOT REPORTED 1 - 30 mg/dL [place] Cholesterol.total/Cho lesterol in HDL [Mass ratio] 2.9 {ratio} <5 [place] Interpretation and review of laboratory results Abnormal [place] Triglyceride [Mass/Vol] 64 mg/dL <150 [place], [place] Comment on above: Triglyceride Guidelines: <150 Desirable 150-199 Borderline 200-499 High >499 Very high Based on AHA Guidelines for fasting triglyceride, February 2012. Patient Fasting?on 0 Patient Fasting? YES [place] APTTon 11-19-2019 aPTT Coag (Bld) [Time] 24.7 s [place] Comment on above: PTT Therapeutic Range: 61.7-88.4 Therapeutic range corresponds to plasma heparin levels of 0.3-0.7 U/mL. Brain Natriuretic Peptideon 11-19-2019 Natriuretic peptide B (Bld) [Mass/Vol] 78 pg/mL <300 [place], [place] Comment on above: Pro-BNP results jackelin ot be compared to BNP results. Natriuretic peptide B (Bld) [Mass/Vol] Pro-BNP Reference Range: [place] Comment on above: Rule Out: <300 Horn Zone: Age <50 300-450 Age 50-75 300-900 Age >75 300-1800 Usually represents mild to moderate HF but other cardiopulmonary causes cannot be ruled out. Rule In: Age <50 >450 Age 50-75 >900 Age >75 >1800 CBC Auto Differentialon 10-29 Basophils (Bld) [#/Vol] 0.00 10*3/uL [place] Basophils/100 WBC (Bld) 1 % 0 - 2 % [place] Differential Type YES [place] Eosinophils (Bld) [#/Vol] 0.00 10*3/uL [place] Eosinophils/100 WBC (Bld) 1 % 0 - 5 % [place] Erythrocyte distribution width (RBC) [Ratio] 13.8 % 12.1 - 15.2 % [place] Hematocrit (Bld) [Volume fraction] 42.7 % 41 - 53 % [place] Hemoglobin (Bld) [Mass/Vol] 14.7 g/dL 13.5 - 17.5 g/dL [place] Interpretation and review of laboratory results Abnormal [place] Lymphocytes (Bld) [#/Vol] 2.40 10*3/uL [place] Lymphocytes/100 WBC (Bld) 33 % 13 - 44 % [place] MCH (RBC) [Entitic mass] 34.5 pg High 26 - 34 pg [place] MCHC (RBC) [Mass/Vol] 34.4 g/dL 31 - 37 g/dL [place] MCV (RBC) [Entitic vol] 100.3 fL High 80 - 100 fL [place] Monocytes (Bld) [#/Vol] 0.50 10*3/uL [place] Monocytes/100 WBC (Bld) 7 % 5 - 9 % [place] Platelet mean volume (Bld) [Entitic vol] NOT REPORTED 6 - 12 fL [place] Platelets (Bld) [#/Vol] NOT REPORTED [place] Platelets (Bld) [#/Vol] 112 10*3/uL [place] RBC (Bld) [#/Vol] 4.26 10*6/uL Low 4.5 - 5.9 m/uL [place], [place] RBC morphology finding Nom (Bld) NOT REPORTED [place] Segmented neutrophils/100 WBC (Bld) 58 % 39 - 75 % [place] Segs Absolute 4.30 [place] WBC (Bld) [#/Vol] 7.3 10*3/uL [place] WBC (Bld) [#/Vol] NOT REPORTED per 100 WBC [place] WBC Morphology NOT REPORTED [place] Comprehensive Metabolic Pane l w/ Reflex to MGon 11-19-2019 Albumin [Mass/Vol] 4 g/dL 3.5 - 5.2 g/dL [place] Albumin/Globulin [Mass ratio] NOT REPORTED [place] ALP [Catalytic activity/Vol] 83 U/L 40 - 129 U/L [place] ALT [Catalytic activity/Vol] 15 U/L 5 - 41 U/L [place] Anion gap [Moles/Vol] 9 mmol/L 9 - 17 mmol/L [place] AST [Catalytic activity/Vol] 22 U/L <40 [place] Bilirubin Ql (U) 0.65 mg/dL 0.3 - 1.2 mg/dL [place] Bun/Cre Ratio 19 [place], [place] Calcium [Mass/Vol] 9.8 mg/dL 8.6 - 10. 4 mg/dL [place] Chloride [Moles/Vol] 106 mmol/L 98 - 10 7 mmol/L [place] CO2 [Moles/Vol] 23 mmol/L 20 - 31 mmol/L [place] Creatinine [Mass/Vol] 0.81 mg/dL 0.7 - 1.2 mg/dL [place] GFR >60 >60 mL/min [place] GFR Non- >60 >60 mL/min [place] GFR/1.73 sq M predicted among non-blacks MDRD (S/P/Bld) [Vol rate/Area] NOT REPORTED [place] GFR/1.73 sq M predicted among non-blacks MDRD (S/P/Bld) [Vol rate/Area] [place] Comment on above: Average GFR for 60-6 9 years old: 85 mL/min/1.73sq m Chronic Kidney Disease: <60 mL/min/1.73sq m Kidney failure: <15 mL/min/1.73sq m eGFR calculated using average adult body mass. Additional eGFR calculator available at: http://www.[employer]/multiple_crcl_2011.htm Glucose [Mass/Vol] 102 mg/dL High 70 - 99 mg/dL [place] Interpretation and review of laboratory results Abnormal [place] Potassium [Moles/Vol] 4.4 mmol/L 3.7 - 5.3 mmol/L [place] Protein [Mass/Vol] 7.3 g/dL 6.4 - 8.3 g/dL [place] Sodium [Moles/Vol] 138 mmol/L 135 - 144 mmol/L [place], [place] Urea nitrogen [Mass/Vol] 15 mg/dL 8 - 23 mg/dL [place] D-Dimer, Quantitativeon 10-29 D-Dimer, Quant 0.40 [place], [place] Comment on above: Elevated levels of [...] 11-19-2019 Immature granulocytes (Bld) [#/Vol] NOT REPORTED [place] Protime-INRon 11-19-2019 INR Coag (PPP) [Relative time] 1.0 {INR} [place] Comment on above: * THERAPY INDICATIONS * REFERENCE RANGES Pts not on anti-coagulants 1.0 - 1.5 INR Low risk pts on anti-coagulants 2.0 - 3.0 INR High risk pts on anti-coagulants 2.5 - 3.5 INR Prevention of atrial thrombo-embolism 3.0 - 4.5 INR PT Coag (PPP) [Time] 10.3 s [place] Troponinon 11-19-2019 Troponin I.cardiac [Mass/Vol] [place] Comment on above: Reference Range: <0.03 [...] diagnosis. Troponin T.cardiac [Mass/Vol] ug/L <0.03 ng/mL [place] Comment on above: Troponin T results c annot be compared to Troponin-I results. Troponin, High Sensitivity NOT REPORTED 0 - 22 ng/L [place] Troponin I.cardiac [Mass/Vol] [place] Comment on above: Reference Range: <0.03 [...] diagnosis. Troponin T.cardiac [Mass/Vol] ug/L <0.03 ng/mL [place] Comment on above: Troponin T results c annot be compared to Troponin-I results. Troponin, High Sensitivity NOT REPORTED 0 - 22 ng/L [place] XR CHEST PORTABLEon 11-19-19 20 CHEST [...] of posterolateral left sixth and seventh ribs. [place] Incoming Radiant Results From [employer] - 11/19/2019 4:21 PM EDT CHEST 3 [...] Unchanged chest with no acute pulmonary disease. [place] Unchanged chest with no acute pulmonary disease. [place] STRESS TEST REPORTon 019 Samantha Martinez MD - 05/02/2019 10:05 [place] [address] CARDIAC STRESS TEST PATIENT NAME: NORY DSOUZA : 1955 MED REC NO: [id number] ROOM: ACCOUNT NO: [id number] ADMIT DATE: 05/01/2019 PROVIDER: Saamntha Martinez DATE OF STUDY: 05/01/2019 Cardiovascular Diagnostics [...] MARTINEZ BRYAN/JESSICA_EDIT Doc#: Unknown CC: Doug Arteaga [place], [place] Other 05-01-2019 Radiology exam is complete. No Radiologist dictation. Please follow up with ordering provider. [place] Basic Metabolic Panel w/ Ref pia to MG 04-04-2019 Anion gap [Moles/Vol] 13 mmol/L 9 - 17 mmol/L [place] Bun/Cre Ratio 13 [place] Calcium [Mass/Vol] 9.5 mg/dL 8.6 - 10. 4 mg/dL [place] Chloride [Moles/Vol] 103 mmol/L 98 - 10 7 mmol/L [place] CO2 [Moles/Vol] 22 mmol/L 20 - 31 mmol/L [place] Creatinine [Mass/Vol] 0.91 mg/dL 0.7 - 1.2 mg/dL [place] GFR >60 >60 mL/min [place] GFR Non- >60 >60 mL/min [place] GFR/1.73 sq M predicted among non-blacks MDRD (S/P/Bld) [Vol rate/Area] NOT REPORTED [place] GFR/1.73 sq M predicted among non-blacks MDRD (S/P/Bld) [Vol rate/Area] [place] Comment on above: Average GFR for 60-6 9 years old: 85 mL/min/1.73sq m Chronic Kidney Disease: <60 mL/min/1.73sq m Kidney failure: <15 mL/min/1.73sq m eGFR calculated using average adult body mass. Additional eGFR calculator available at: http://www.[employer]/multiple_crcl_2012.htm Glucose [Mass/Vol] 100 mg/dL High 70 - 99 mg/dL [place] Interpretation and review of laboratory results Abnormal [place] Potassium [Moles/Vol] 4.4 mmol/L 3.7 - 5.3 mmol/L [place] Sodium [Moles/Vol] 138 mmol/L 135 - 144 mmol/L [place] Urea nitrogen [Mass/Vol] 12 mg/dL 8 - 23 mg/dL [place] Brain Natriuretic Peptideon 04-04-2019 Natriuretic peptide B (Bld) [Mass/Vol] 188 pg/mL <300 [place], [place] Comment on above: Pro-BNP results jackelin ot be compared to BNP results. Natriuretic peptide B (Bld) [Mass/Vol] Pro-BNP Reference Range: [place] Comment on above: Rule Out: <300 Horn Zone: Age <50 300-450 Age 50-75 300-900 Age >75 300-1800 Usually represents mild to moderate HF but other cardiopulmonary causes cannot be ruled out. Rule In: Age <50 >450 Age 50-75 >900 Age >75 >1800 CBC Auto Differentialon 11-0 Basophils (Bld) [#/Vol] 0.00 10*3/uL [place] Basophils/100 WBC (Bld) 0 % 0 - 2 % [place] Differential Type YES [place] Eosinophils (Bld) [#/Vol] 0.00 10*3/uL [place] Eosinophils/100 WBC (Bld) 0 % 0 - 5 % [place] Erythrocyte distribution width (RBC) [Ratio] 14.1 % 12.1 - 15.2 % [place] Hematocrit (Bld) [Volume fraction] 43.4 % 41 - 53 % [place] Hemoglobin (Bld) [Mass/Vol] 14.6 g/dL 13.5 - 17.5 g/dL [place] Interpretation and review of laboratory results Abnormal [place] Lymphocytes (Bld) [#/Vol] 2.10 10*3/uL [place] Lymphocytes/100 WBC (Bld) 24 % 13 - 44 % [place] MCH (RBC) [Entitic mass] 33.9 pg 26 - 34 pg [place] MCHC (RBC) [Mass/Vol] 33.7 g/dL 31 - 37 g/dL [place] MCV (RBC) [Entitic vol] 100.5 fL High 80 - 100 fL [place], [place] Monocytes (Bld) [#/Vol] 0.50 10*3/uL [place], [place] Monocytes/100 WBC (Bld) 6 % 5 - 9 % [place] Platelet mean volume (Bld) [Entitic vol] NOT REPORTED 6 - 12 fL [place] Platelets (Bld) [#/Vol] 133 10*3/uL Low [place] Platelets (Bld) [#/Vol] NOT REPORTED [place] RBC (Bld) [#/Vol] 4.32 10*6/uL Low 4.5 - 5.9 m/uL [place] RBC morphology finding Nom (Bld) NOT REPORTED [place] Segmented neutrophils/100 WBC (Bld) 70 % 39 - 75 % [place] Segs Absolute 6.10 [place] WBC (Bld) [#/Vol] 8.8 10*3/uL [place] WBC (Bld) [#/Vol] NOT REPORTED per 100 WBC [place] WBC Morphology NOT REPORTED [place] Otheron 04-04-2019 Immature granulocytes (Bld) [#/Vol] NOT REPORTED 0 % [place] Troponinon 04-04-2019 Troponin I.cardiac [Mass/Vol] [place] Comment on above: Reference Range: <0.03 [...] diagnosis. Troponin T.cardiac [Mass/Vol] ug/L <0.03 ng/mL [place] Comment on above: Troponin T results c annot be compared to Troponin-I results. Troponin, High Sensitivity NOT REPORTED 0 - 22 ng/L [place] Troponin I.cardiac [Mass/Vol] [place] Comment on above: Reference Range: <0.03 [...] diagnosis. Troponin T.cardiac [Mass/Vol] ug/L <0.03 ng/mL [place] Comment on above: Troponin T results c annot be compared to Troponin-I results. Troponin, High Sensitivity NOT REPORTED 0 - 22 ng/L [place] Vital Signs Date Time Vital Sign Value Performing Clinician Facility 11-05-2024 14:51-0400 Diastolic blood pressure 69 mm[Hg] Siomara Brown DPM Work Phone: [facility] 11-05-2024 14:51-0400 Heart rate 58 /min Siomara Brown DPM Work Phone: [facility] 11-05-2024 14:51-0400 Systolic blood pressure 115 mm[Hg] Siomara Brown DPM Work Phone: [facility] 10-11-2024 12:36-0400 Diastolic blood pressure 68 mm[Hg] Christopher Bohach DPM Work Phone: [facility] 10-11-2024 12:36-0400 Heart rate 68 /min Christopher Bohach DPM Work Phone: [facility] 10-11-2024 12:36-0400 Systolic blood pressure 122 mm[Hg] Christopher Bohach DPM Work Phone: [facility] 08-21-2024 13:50-0400 Body height 172.7 cm Christopher Bohach DPM Work Phone: [facility] 08-21-2024 13:50-0400 Body mass index (BMI) [Ratio] 34.97 kg/m2 Christopher Bohach DPM Work Phone: [facility] 08-21-2024 13:50-0400 Body weight 104.33 kg Christopher Bohach DPM Work Phone: [facility] 08-21-2024 13:50-0400 Diastolic blood pressure 62 mm[Hg] Christopher Bohach DPM Work Phone: [facility] 08-21-2024 13:50-0400 Heart rate 55 /min Christopher Bohach DPM Work Phone: [facility] 08-21-2024 13:50-0400 Systolic blood pressure 111 mm[Hg] Christopher Bohach DPM Work Phone: [facility] 05-16-2024 12:23-0500 Hourly Rounding [facility] 05-16-2024 12:23-0500 Promise to Return Mbanefo [facility] 05-16-2024 11:23-0500 Hourly Rounding Mbanefo [facility] 05-16-2024 11:23-0500 Promise to Return [facility] 05-16-2024 10:53-0500 Heart rate 77 /min [facility] 05-16-2024 10:53-0500 SaO2% (BldA) [Mass fraction] 96 % [facility] 05-16-2024 10:53-0500 Respiratory rate 20 /min [facility] 05-16-2024 10:52-0500 Body temperature 97.52 [degF] [facility] 05-16-2024 10:52-0500 Diastolic blood pressure 87 mm[Hg] [facility] 05-16-2024 10:52-0500 Mean blood pressure 102 mm[Hg] [facility] 05-16-2024 10:52-0500 Systolic blood pressure 134 mm[Hg] [facility] 05-16-2024 10:42-0500 Hourly Rounding [facility]ban[facility]o [facility] 05-16-2024 10:42-0500 Promise to Return [facility]ban[facility]o [facility] 05-16-2024 07:22-0500 Heart rate 72 /min Mbanefo [facility]UK[facility]U [facility] 05-16-2024 07:22-0500 SaO2% (BldA) [Mass fraction] 95 % Mbanefo [facility]UKWU [facility] 05-16-2024 07:22-0500 Respiratory rate 20 /min Mbanefo [facility] 05-16-2024 07:21-0500 Body temperature 97.34 [degF] Mbanefo [facility]UKWU [facility] 05-16-2024 07:20-0500 Diastolic blood pressure 90 mm[Hg] Mbanefo [facility]UKWU [facility] 05-16-2024 07:20-0500 Mean blood pressure 111 mm[Hg] Mbanefo [facility]UKWU [facility] 05-16-2024 07:20-0500 Systolic blood pressure 154 mm[Hg] Mbanefo [facility]JUKWU [facility] 05-16-2024 04:00-0500 Body temperature 97.7 [degF] Mbanefo [facility]U [facility] 05-16-2024 04:00-0500 Diastolic blood pressure 70 mm[Hg] Mbanefo [facility]UKWU [facility] 05-16-2024 04:00-0500 Heart rate 91 /min Mbanefo [facility] 05-16-2024 04:00-0500 Respiratory rate 19 /min Mbanefo [facility]UKW[facility] 05-16-2024 04:00-0500 SaO2% (BldA) [Mass fraction] 94 % Mbanefo [facility]UKWU [facility] 05-16-2024 04:00-0500 Systolic blood pressure 135 mm[Hg] Mbanefo [facility]UKWU [facility] 05-15-2024 23:16-0500 Heart rate 64 /min Mbanefo [facility]UK[facility] 05-15-2024 23:16-0500 Respiratory rate 18 /min Mbanefo [facility] 05-15-2024 23:15-0500 Blood Pressure Location Mbanefo [facility]JUKWU [facility] 05-15-2024 23:15-0500 BP/Pulse Patient Position Mbanefo [facility]UKWU [facility] 05-15-2024 23:15-0500 Mean blood pressure 107 mm[Hg] Mbanefo [facility]UKWU [facility] 05-15-2024 23:15-0500 Body temperature 97.88 [degF] Mbanefo [facility] 05-15-2024 19:00-0500 Body temperature 98.06 [degF] Mbanefo [facility]UK[facility]U [facility] 05-15-2024 16:56-0500 Mean blood pressure 88 mm[Hg] Mbanefo [facility]UK[facility] 05-15-2024 16:56-0500 Respiratory rate 16 /min Mbanefo [facility]UK[facility] 05-15-2024 16:00-0500 Mean blood pressure 97 mm[Hg] Mbanefo [facility]UK[facility] 05-15-2024 15:12-0500 gluc 79 mg/dL Mbanefo [facility] 05-15-2024 15:05-0500 gluc 79 mg/dL Mbanefo [facility] 10-17-2023 20:00-0400 Body height 170.2 cm Mwhz Schedule [facility] [employer] [facility] [employer] 10-17-2023 20:00-0400 Body mass index (BMI) [Ratio] 36.65 kg/m2 [facility] [employer] [facility] 10-17-2023 20:00-0400 Body weight 106.14 kg Mwhz Schedule [facility] [employer] [facility] 04-21-2023 13:22-0500 Body temperature 98.06 [degF] Robson Cartwright [facility] 04-21-2023 13:22-0500 Diastolic blood pressure 74 mm[Hg] Robson Cartwright [facility] 04-21-2023 13:22-0500 Heart rate 68 /min Robson Cartwright [facility] 04-21-2023 13:22-0500 Respiratory rate 18 /min Robson Cartwright [facility] 04-21-2023 13:22-0500 SaO2% (BldA) [Mass fraction] 97 % Robson Cartwright [facility] 04-21-2023 13:22-0500 Systolic blood pressure 140 mm[Hg] Robson Cartwright [facility] 11-27-2022 19:00-0400 Diastolic blood pressure 78 mm[Hg] Grant Vazquez [facility] 11-27-2022 19:00-0400 Heart rate 62 /min Grant George [facility] 11-27-2022 19:00-0400 Mean blood pressure 92 mm[Hg] Grant George [facility] 11-27-2022 19:00-0400 Respiratory rate 18 /min Grant George [facility] 11-27-2022 19:00-0400 SaO2% (BldA) [Mass fraction] 98 % Grant George [facility] 11-27-2022 19:00-0400 Systolic blood pressure 120 mm[Hg] Grant George [facility] 11-27-2022 18:30-0400 Diastolic blood pressure 76 mm[Hg] Grant George [facility] 11-27-2022 18:30-0400 Heart rate 49 /min Grant George [facility] 11-27-2022 18:30-0400 Mean blood pressure 97 mm[Hg] Grant George [facility] 11-27-2022 18:30-0400 Respiratory rate 17 /min Grant George [facility] 11-27-2022 18:30-0400 SaO2% (BldA) [Mass fraction] 96 % Grant George [facility] 11-27-2022 18:30-0400 Systolic blood pressure 140 mm[Hg] Grant George [facility] 11-27-2022 18:00-0400 Diastolic blood pressure 93 mm[Hg] Grant George [facility] 11-27-2022 18:00-0400 Heart rate 60 /min Grant George [facility] 11-27-2022 18:00-0400 Mean blood pressure 101 mm[Hg] Grant George [facility] 11-27-2022 18:00-0400 SaO2% (BldA) [Mass fraction] 97 % Grant George [facility] 11-27-2022 18:00-0400 Systolic blood pressure 116 mm[Hg] Grant George [facility] 11-27-2022 17:30-0400 Heart rate 90 /min Grant George [facility] 11-27-2022 16:21-0400 Body temperature 97.52 [degF] Grant George [facility] 11-27-2022 16:21-0400 Heart rate 71 /min Grant George [facility] 11-27-2022 16:21-0400 Respiratory rate 16 /min Grant George [facility] 05-16-2022 00:16-0500 Diastolic blood pressure 95 mm[Hg] Alec Александр [facility] 05-16-2022 00:16-0500 Heart rate 84 /min Alec Александр [facility] 05-16-2022 00:16-0500 Systolic blood pressure 134 mm[Hg] Alec Александр [facility] 05-16-2022 00:15-0500 Diastolic blood pressure 97 mm[Hg] Alec Александр [facility] 05-16-2022 00:15-0500 Heart rate 84 /min Alec Александр [facility] 05-16-2022 00:15-0500 Mean blood pressure 109 mm[Hg] Alec Александр [facility] 05-16-2022 00:15-0500 Respiratory rate 11 /min Aelc Александр [facility] 05-16-2022 00:15-0500 SaO2% (BldA) [Mass fraction] 95 % Alec Александр [facility] 05-16-2022 00:15-0500 Systolic blood pressure 134 mm[Hg] Alec Александр [facility] 05-15-2022 21:42-0500 Diastolic blood pressure 99 mm[Hg] Alec Александр [facility] 05-15-2022 21:42-0500 Heart rate 80 /min Alec Александр [facility] 05-15-2022 21:42-0500 Systolic blood pressure 130 mm[Hg] Alec Александр [facility] 05-15-2022 21:37-0500 Hourly Rounding Alecjose Fountain [facility] 05-15-2022 21:37-0500 Promise to Return Alecjose Fountain [facility] 05-15-2022 21:36-0500 Heart rate 78 /min Alec Александр [facility] 05-15-2022 21:36-0500 Mean blood pressure 109 mm[Hg] Alec Александр [facility] 05-15-2022 21:36-0500 Respiratory rate 28 /min Alec Александр [facility] 05-15-2022 21:36-0500 SaO2% (BldA) [Mass fraction] 94 % Alec Александр [facility] 05-15-2022 20:48-0500 Heart rate 84 /min Alec Александр [facility] 05-15-2022 20:48-0500 Respiratory rate 24 /min Alec Александр [facility] 05-15-2022 20:48-0500 SaO2% (BldA) [Mass fraction] 96 % Alec Александр [facility] 05-15-2022 20:30-0500 Mean blood pressure 99 mm[Hg] Alec Александр [facility] 05-15-2022 19:47-0500 Body temperature 97.7 [degF] Alec Fountain [facility] 05-15-2022 19:47-0500 Heart rate 79 /min Alec Fountain [facility] 05-15-2022 19:47-0500 Respiratory rate 19 /min Alec Fountain [facility] 01-03-2022 01:23-0400 Nursing Progress Note Reason Other: discharge instructions given. pt verbalized understanding. sister picking pt up Zackinn Dokken [facility] 01-02-2022 22:55-0400 Body temperature 98.78 [degF] Zackinn Dokken [facility] 01-02-2022 22:55-0400 Diastolic blood pressure 76 mm[Hg] Kaitylinn Dokken [facility] 01-02-2022 22:55-0400 Heart rate 79 /min Kaitylinn Dokken [facility] 01-02-2022 22:55-0400 Respiratory rate 18 /min Zackinn Dokken [facility] 01-02-2022 22:55-0400 SaO2% (BldA) [Mass fraction] 97 % Kaitylinn Dokken [facility] 01-02-2022 22:55-0400 Systolic blood pressure 128 mm[Hg] Kaitylinn Dokken [facility] 09-01-2021 13:20-0400 Diastolic blood pressure 83 mm[Hg] Juan A SCHAEFER [facility] 09-01-2021 13:20-0400 Heart rate 73 /min Juan Aalex WALLSSLIN [facility] 09-01-2021 13:20-0400 Systolic blood pressure 132 mm[Hg] Juan A SILVANO [facility] 09-01-2021 12:00-0400 Blood Pressure Location Juan Aalex WALLSSLIN [facility] 09-01-2021 12:00-0400 Body temperature 97.7 [degF] Juan Aalex WALLSSLIN [facility] 09-01-2021 12:00-0400 Hourly Rounding Juan Aalex WALLSSLIN [facility] 09-01-2021 12:00-0400 Mean blood pressure 99 mm[Hg] Juan Aalex WALLSSLIN [facility] 09-01-2021 12:00-0400 SaO2% (BldA) [Mass fraction] 97 % Juan Aalxe WALLSSLIN [facility] 09-01-2021 11:00-0400 Promise to Return Juan Aalex WALLSSLIN [facility] 09-01-2021 08:44-0400 Diastolic blood pressure 85 mm[Hg] Juan Aalex WALLSSLIN [facility] 09-01-2021 08:44-0400 Heart rate 61 /min Juan Aalex WALLSSLIN [facility] 09-01-2021 08:44-0400 Systolic blood pressure 147 mm[Hg] Juan A SILVANO [facility] 09-01-2021 08:00-0400 Blood Pressure Location Juan A SILVANO [facility] 09-01-2021 08:00-0400 Mean blood pressure 106 mm[Hg] Juan A SILVANO [facility] 09-01-2021 08:00-0400 SaO2% (BldA) [Mass fraction] 99 % Juan Aalex WALLSSLIN [facility] 08-31-2021 15:40-0400 Body temperature 97.52 [degF] Juan Aalex WALLSSLIN [facility] 08-31-2021 15:40-0400 Heart rate 71 /min Juan Aalex WALLSSLIN [facility] 08-31-2021 15:40-0400 Mean blood pressure 96 mm[Hg] Juan Aalex WALLSSLIN [facility] 08-31-2021 15:40-0400 SaO2% (BldA) [Mass fraction] 99 % Juan Aalex WALLSSLIN [facility] 08-31-2021 14:00-0400 Heart rate 68 /min Juan Aalex WALLSSLIN [facility] 08-31-2021 12:38-0400 Heart rate 78 /min Juan Aalex WALLSSLIN [facility] 08-31-2021 12:38-0400 Mean blood pressure 103 mm[Hg] Juan Aalex WALLSSLIN [facility] 08-31-2021 12:38-0400 Respiratory rate 16 /min Juan A SILVANO [facility] 08-31-2021 07:44-0400 Respiratory rate 18 /min Juan A SILVANO [facility] 08-31-2021 03:05-0400 Respiratory rate 16 /min Juan Aalex WALLSSLIN [facility] 08-30-2021 16:25-0400 Blood Pressure Location Juan A SILVANO [facility] 08-30-2021 16:25-0400 BP/Pulse Patient Position Juan A SCHAEFER [facility] 08-30-2021 16:25-0400 Mean blood pressure 83 mm[Hg] Juan A SCHAEFER [facility] 08-30-2021 11:44-0400 BP/Pulse Patient Position Juan A SCHAEFER [facility] 08-30-2021 11:44-0400 Mean blood pressure 88 mm[Hg] Juan A SCHAEFER [facility] 08-30-2021 08:59-0400 BP/Pulse Patient Position Juan A SCHAEFER [facility] 08-30-2021 04:15-0400 Heart rate 86 /min Juan A SCHAEFER [facility] 08-30-2021 02:30-0400 Nursing Progress Note Reason Other: Resting on cart, resp even and non labored, skin pink warm and dry, Updated on POC, call light in reach. Juan A SCHAEFER [facility] 08-30-2021 02:30-0400 Respiratory rate 11 /min Juan A SCHAEFER [facility] 08-30-2021 01:27-0400 Heart rate 82 /min Juan A SCHAEFER [facility] 06-02-2020 15:20-0500 BP Diastolic 68 mm[Hg] [facility] [place] 06-02-2020 15:20-0500 BP Systolic 120 mm[Hg] [facility] [place] 06-02-2020 15:20-0500 Pulse (Heart Rate) 55 /min [facility] [place] [place] 06-02-2020 15:20-0500 Pulse Oximetry 100 % [facility] [place] 06-02-2020 15:20-0500 Respiratory Rate 18 /min [facility] [place] [place] 06-02-2020 13:10-0500 BMI (Body Mass Index) 32.93 kg/m2 [facility] [place] [place] 06-02-2020 13:10-0500 Body Temperature 97.59 [degF] [facility] [place] 06-02-2020 13:10-0500 Body weight 92.53 kg [facility] [place] 01-19-2020 16:30-0400 Pulse (Heart Rate) 66 /min Hardeep Merino [facility], [place] 01-19-2020 16:30-0400 Pulse Oximetry 97 % Hardeep Merino [facility] , [place] 01-19-2020 16:30-0400 Respiratory Rate 15 /min Hardeep Merino [facility] [place] 01-19-2020 15:23-0400 BMI (Body Mass Index) 30.47 kg/m2 Hardeep Merino [facility], [place] 01-19-2020 15:23-0400 Body Temperature 98.29 [degF] Hardeep Merino [facility] [place] 01-19-2020 15:23-0400 Body weight 85.64 kg Hardeep Merino [facility] , [place] 01-19-2020 15:23-0400 BP Diastolic 83 mm[Hg] Hardeep Merino [facility] , [place] 01-19-2020 15:23-0400 BP Systolic 143 mm[Hg] Hardeep Merino [facility] , [place] 01-14-2020 16:51-0400 BP Diastolic 78 mm[Hg] [facility] [place] 01-14-2020 16:51-0400 BP Systolic 118 mm[Hg] [facility] [place] 01-14-2020 16:51-0400 Pulse (Heart Rate) 65 /min [facility] [place] [place] 01-14-2020 16:51-0400 Pulse Oximetry 99 % [facility] [place] 01-14-2020 16:51-0400 Respiratory Rate 14 /min [facility], [place] 01-14-2020 13:48-0400 BMI (Body Mass Index) 30.47 kg/m2 [facility], [place] 01-14-2020 13:48-0400 Body Temperature 98.1 [degF] [facility], [place] 01-14-2020 13:48-0400 Body weight 85.64 kg [facility], [place] 01-14-2020 13:48-0400 Height 167.6 cm [facility], [place] 11-19-2019 17:35-0400 BP Diastolic 77 mm[Hg] [facility], [place] 11-19-2019 17:35-0400 BP Systolic 111 mm[Hg] [facility], [place] 11-19-2019 17:35-0400 Pulse (Heart Rate) 67 /min [facility], [place] 11-19-2019 17:35-0400 Pulse Oximetry 98 % [facility], [place] 11-19-2019 17:35-0400 Respiratory Rate 17 /min [facility], [place] 11-19-2019 15:40-0400 BMI (Body Mass Index) 31.34 kg/m2 [facility], [place] 11-19-2019 15:40-0400 Body Temperature 98.4 [degF] [facility], [place] 11-19-2019 15:40-0400 Body weight 90.77 kg [facility], [place] 11-19-2019 15:40-0400 Height 170.2 cm [facility], [place] 04-04-2019 17:18-0500 BP Diastolic 69 mm[Hg] [facility], [place] 04-04-2019 17:18-0500 BP Systolic 110 mm[Hg] [facility], [place] 04-04-2019 17:18-0500 Pulse (Heart Rate) 65 /min [facility], [place] 04-04-2019 17:18-0500 Pulse Oximetry 99 % [facility], [place] 04-04-2019 17:18-0500 Respiratory Rate 17 /min [facility] [place], [place] 04-04-2019 16:14-0500 BMI (Body Mass Index) 33.89 kg/m2 [facility] [place] 04-04-2019 16:14-0500 Body weight 95.25 kg [facility] [place] 04-04-2019 16:14-0500 Height 167.6 cm [facility] [place] 04-04-2019 16:11-0500 Body Temperature 97.9 [degF] [facility], [place] Encounters Encounter Date Encounter Type Care Provider Facility Start: 11-12-2024 End: 11-12-2024 ambulatory DOUG ARTEAGA [facility] Start: 11-12-2024 End: 11-12-2024 Subsequent hospital visit by physician Duog Arteaga MD Work Phone: [facility] Comment on above: Prostate cancer scre ening; Primary hypertension; Hypercholesteremia Start: 11-05-2024 End: 11-05-2024 Office outpatient visit 15 minutes Siomara Brown DPM Work Phone: [facility] Comment on above: Plantar warts (Prima ry Dx); Left foot pain Start: 11-05-2024 End: 11-05-2024 ambulatory SIOMARA BROWN Not Available Start: 11-05-2024 End: 11-05-2024 Bamboo flowsheet Siomara Brown DPM Work Phone: [facility] Start: 11-05-2024 End: 11-05-2024 Bamboo flowsheet Siomara Brown DPM Work Phone: [facility] Start: 10-11-2024 End: 10-11-2024 Bamboo flowsheet Siomara Brown DPM Work Phone: [facility] Start: 10-11-2024 End: 10-11-2024 Bamboo flowsheet Siomara Brown DPM Work Phone: [facility] Start: 10-11-2024 End: 10-11-2024 Patient encounter procedure Siomara Brown DPM Work Phone: [facility] Comment on above: Plantar warts (Prima ry Dx); Left foot pain Start: 10-11-2024 End: 10-11-2024 ambulatory SIOMARA BROWN Not Available Start: 08-21-2024 End: 08-21-2024 Office outpatient visit 15 minutes Siomara Brown DPM Work Phone: [facility] Comment on above: Idiopathic progressi ve polyneuropathy (Primary Dx); Onychomycosis; Skin ulcer of left great toe, limited to breakdown of skin (CMS/HCC); Ulcer of left foot, limited to breakdown of skin (CMS/HCC); Left foot pain Start: 08-21-2024 End: 08-21-2024 ambulatory SIOMARA BROWN Not Available Start: 06-25-2024 End: 06-27-2024 ambulatory [facility] Start: 06-25-2024 End: 06-27-2024 Subsequent hospital visit by physician [facility] Additional [facility] Comment on above: Chronic pain of righ t knee Chronic bilateral lo w back pain without sciatica Start: 05-15-2024 End: 05-16-2024 ambulatory Mbanefo OJUANJOKWU Facility:[facility] Start: 05-15-2024 Emergency department patient visit Robson Cartwright Facility:[facility] Start: 05-15-2024 End: 05-16-2024 Observation Mbanefo OFELICIANOWU [facility] Start: 03-23-2024 End: 03-25-2024 ambulatory [facility] Start: 03-23-2024 End: 03-25-2024 Subsequent hospital visit by physician Doug Arteaga MD Work Phone: [facility] Comment on above: Leg edema, left Start: 11-16-2023 End: 11-16-2023 ambulatory [facility] Start: 11-02-2023 End: 11-04-2023 Subsequent hospital visit by physician Doug Arteaga MD Work Phone: [facility] CT Scan Comment on above: Personal history of tobacco use Screening for AAA (a bdominal aortic aneurysm) Start: 10-17-2023 End: 10-17-2023 Subsequent hospital visit by physician [facility] Schedule [facility] Comment on above: Excessive daytime sl eepiness; Other sleep apnea Start: 04-28-2023 End: 04-28-2023 Patient encounter procedure Raul Vanessa [facility] Start: 04-21-2023 End: 04-21-2023 Emergency department patient visit Robson Cartwright [facility] Start: 11-27-2022 End: 11-27-2022 Emergency department patient visit Grant Vazquez [facility] Start: 10-11-2022 End: 10-12-[address] DOCTOR BAI Facility:[facility] Start: 06-26-2022 End: 06-26-[address] VIDYA SAMUEL . Facility:[facility] Start: 05-15-2022 End: 05-16-2022 Emergency department patient visit Alec Fountain [facility] Start: 02-11-2022 End: 02-11-[address] VIDYA SAMUEL . Facility:[facility] Start: 01-02-2022 End: 01-03-2022 Emergency department patient visit Jose Daniel Silva [facility] Start: 08-30-2021 End: 09-01-2021 Observation Juan A SCHAEFER [facility] Start: 03-05-2021 End: 03-05-2021 Subsequent hospital visit by physician Doug Arteaga MD Work Phone: [facility] Comment on above: Screening PSA (prost ate specific antigen) Start: 02-16-2021 End: 02-16-2021 Subsequent hospital visit by physician Doug Arteaga MD Work Phone: [facility] Comment on above: Hypercholesteremia; Essential hypertension Start: 06-02-2020 End: 06-02-2020 Emergency department patient visit Pan One2start Work Phone: [facility] ED Comment on above: Diplopia (Primary Dx [...] department patient visit Hardeep Merino Work Phone: [facility] ED Comment on above: Arm paresthesia, rig ht (Primary Dx) Start: 01-14-2020 End: 01-14-2020 Emergency department patient visit Pan Goulditrov Work Phone: [facility] ED Comment on above: Palpitations (Primar y Dx) Start: 12-03-2019 End: 12-03-2019 Subsequent hospital visit by physician Chalino Ekg [facility] Comment on above: Palpitations Hypercholesteremia; Essential hypertension Start: 11-19-2019 End: 11-19-2019 Emergency department patient visit Devin Lui Work Phone: [facility] ED Comment on above: Tachycardia (Primary Dx) [...] hospital visit by physician Doug Arteaga [facility] Start: 04-04-2019 End: 04-04-2019 Emergency department patient visit Siomara Mejia Work Phone: [facility] ED Comment on above: Palpitations (Primar y Dx) Start: 05-12-2017 Refill 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 Clayton 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 Work Phone: [facility] Comment on above: Medication Refill Start: 04-17-2017 Refill Kati Lance Clayton 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 Work Phone: [facility] Comment on above: Medication Refill Procedures Date Procedure Procedure Detail Performing Clinician Start: 11-12-2024 Comprehensive metabo lic panel Doug Arteaga MD Work Phone: Start: 11-12-2024 Lipid panel Doug stallworth MD Work Phone: Start: 06-25-2024 End: 06-25-2024 Radiologic exam knee complete 4/more views Doug Arteaga MD Work Phone: Start: 03-23-2024 Dup-scan xtr veins unilateral/limited study Doug Arteaga MD Work Phone: Start: 11-02-2023 CT Chest for screening Doug Arteaga MD Work Phone: Start: 11-02-2023 Us abdominal aorta r eal time screen study aaa Doug Arteaga MD Work Phone: Start: 10-11-[address] VIDYA KOENIG . Comment on above: Performed By: #### [facility] #### [facility] [address] [address] [address] Rufina Ramirez Start: 03-05-2021 PSA screening Doug lim MD Work Phone: Comment on above: The [...] Lui Work Phone: Start: 11-19-2019 Prothrombin time Nannette nt Sania Work Phone: Start: 11-19-2019 Thromboplastin [...] Work Phone: Start: 04-04-2019 Natriuretic peptide Chr isambrosioher Kamara Roberto Work Phone: Start: 04-04-2019 Ecg routine ecg w/le ast 12 lds w/i&r Siomara Mejia Work Phone: Start: 02-27-2010 Repair of umbilical hernia Juan A SCHAEFER Start: 05-30-2008 lump removal Juan A ALMANZAR Start: 05-30-2004 Closed fracture of f oot (disorder) Juan A SCHAEFER Start: 05-30-2004 Colonoscopy Juan A ALMANZAR 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) Juan A SILVANO Comment on above: 2006 Plan of Treatment Date Care Activity Detail Author Start: 09-21-2034 DTaP/Tdap/Td vaccine (3 - Td or Tdap) DTaP/Tdap/Td vaccine (3 - Td [facility]) [facility] Start: 2028 Respiratory Syncytia l Virus (RSV) or age 60 yrs+ (1 - 1-dose 75+ series) Respiratory Syncytial Virus (RSV) or age 60 yrs+ (1 - 1-dose 75+ series) [facility] [id number] Start: 11-12-2025 Lipid panel Lipids [facility] Start: 06-24-2025 Depression Screen Depression Screen [facility] [employer] Start: 01-28-2025 Influenza vaccination Influenz a Vaccine (Season Ended) [facility] Start: 11-27-2024 End: 11-27-2024 Patient encounter procedure 11/27/2024 1:00 PM EDT Office Visit [facility] [address] [place] [phone] Doug Arteaga MD [address] [phone] 3 months (around 11/29/2024) for HTN, Hyperlipidemia, gerd, adrenal insuff, [facility] Comment on above: 3 months (around 11/29) for HTN, Hyperlipidemia, gerd, adrenal insuff, Start: 11-16-2024 Annual Wellness Visi t (Medicare) Annual Wellness Visit (Medicare) [facility] [employer] Start: 11-15-2024 [facility] Screen [facility] Start: 11-05-2024 End: 11-05-2024 Patient encounter procedure [facility] Comment on above: Arrived Start: 11-01-2024 Screening for malign ant neoplasm of lung [facility] Start: 10-11-2024 End: 10-11-2024 Patient encounter procedure 10/11/2024 1:00 PM EDT Office Visit [facility] [address] [place] [phone] Siomara Brown DPM [address] [place] [address] Arrived [facility] Comment on above: Arrived Start: 09-24-2024 End: 09-24-2024 Patient encounter procedure 09/24/2024 11:40 AM EDT Office Visit [facility] [address] [phone] Doug Arteaga MD [address] [phone] 3 mos - Hyperlipidemia, HTN, gerd. [facility] Comment on above: 3 mos - Hyperlipidem ia, HTN, gerd. Start: 09-11-2024 End: 09-11-2024 Patient encounter procedure 09/11/2024 10:30 AM EDT Office Visit [facility] [address] [place] [phone] Siomara Brown, JUDAH [address] [phone] [facility] Start: 06-25-2024 Depression Screen Depression Screen [facility] Start: 02-12-2024 DTaP/Tdap/Td vaccine (2 - Td or Tdap) DTaP/Tdap/Td vaccine (2 - Td or Tdap) [facility] Start: 02-12-2024 DTaP/Tdap/Td vaccine (2 - Td) DTaP/Tdap/Td vaccine (2 - Td) [place] Start: 02-12-2024 Tetanus vaccination Tetanus: Every 1 0yrs [facility] Start: 01-29-2024 COVID-19 Vaccine (2022- season) COVID-19 Vaccine ( season) [facility] Start: 01-29-2024 COVID-19 Vaccine ( season) COVID-19 Vaccine ( season) [facility] Start: 01-29-2024 Influenza vaccination Influenza Vacc ine (#1) [facility] Start: 12-29-2023 Influenza vaccination Flu vaccine (# 1) [facility] Start: 11-16-2023 End: 11-16-2023 Patient encounter procedure 11/16/2023 10:20 AM EDT Office Visit [place] [phone] Doug Arteaga MD [address] [place] [phone] HCC - 6 months (around 11/01/2023) for HTN, Hyperlipidemia, gerd. [facility] Comment on above: HCC - 6 months (arou nd 11/01/2023) for HTN, Hyperlipidemia, gerd. Start: 11-01-2023 End: 11-01-2023 Patient encounter procedure 11/01/2023 10:20 AM EDT Office Visit [address] [phone] Doug Arteaga MD [address] [place] [phone] HCC - 6 months (around 11/01/2023) for HTN, Hyperlipidemia, gerd. [facility] Comment on above: HCC - 6 months (arou nd 11/01/2023) for HTN, Hyperlipidemia, gerd. Start: 10-29-2023 Annual Wellness Visi t (Medicare) Annual Wellness Visit (Medicare) [facility] Start: 10-29-2023 Screening for malign ant neoplasm of colon [facility] Start: 10-12-2023 Lipid panel Lipids [facility] Start: 01-28-2023 COVID-19 Vaccine ( season) COVID-19 Vaccine () [facility] Start: 02-16-2022 Lipid panel Lipid screen [place] Work Phone: Start: 01-28-2022 Influenza vaccination Sequenti al Influenza Vaccine (#1) [facility] Start: 09-04-2021 Annual Wellness Visi t (AWV) Annual Wellness Visit (AWV) [facility] [employer] Phone: Start: 09-03-2021 End: 09-03-2021 Patient encounter procedure 09/03/2021 Office Visit Family Doug Marie MD [address] [place] [address] [phone] [facility] Start: 03-05-2021 End: 03-05-2021 Patient encounter procedure 03/05/2021 Office Visit Doug Inman MD [address] [place] [address] [facility] Start: 01-28-2021 Influenza vaccination Flu vaccine (# 1) [facility] [employer] Phone: Start: 12-02-2020 Lipid panel Lipid screen [facility] Start: 08-25-2020 End: 08-25-2020 Office Visit [facility] Start: 04-28-2020 End: 04-28-2020 Office Visit 04/28/2020 Office Visit Cardiology Demetrius Jimenez MD [address] [place] [address] [facility] [employer] Start: 04-19-2020 Lipid panel Lipid screen [facility] Start: 04-19-2020 Lipid screen Lipid screen [place] [employer] Phone: Start: 04-16-2020 End: 04-16-2020 Office Visit 04/16/2020 Office Visit Doug Inman MD [address] [place] [address] [phone] [facility] Start: 01-29-2020 Influenza vaccination Flu vaccine (# 1) [place] Start: 01-28-2020 End: 01-28-2020 Office Visit 01/28/2020 Office Visit Cardiology Demetrius Jimenez MD [address] [place] [address] [facility] [employer] Start: 12-25-2019 End: 12-25-2019 Office Visit 12/25/2019 Office Visit Cardiology Demetrius Jimenez MD [address] [place] [address] [facility] [employer] Start: 06-08-2019 Pneumococcal 65+ yea rs Vaccine (2 of 2 - PPSV23) Pneumococcal 65+ years Vaccine (2 of 2 - PPSV23) [place] Start: 06-05-2019 End: 06-05-2019 Office Visit 06/05/2019 Office Visit Family Medicine Doug Arteaga MD [address] [place] [address] [facility] Start: 2019 Lipid screen Lipid screen [place], [place] Start: 01-28-2019 Influenza vaccination Flu vaccine (# 1) [place] Start: 10-25-2018 Annual Wellness Visi t (AWV) Annual Wellness Visit (AWV) [place] Start: 2018 Abdominal aortic ane urysm screening AAA screen [facility] Start: 2018 Fall risk assessment Falls Risk [facility] Start: 04-09-2017 Colon Cancer Screen FIT/FOBT Colon Cancer Screen FIT/FOBT [place] Start: 04-09-2017 Screening for malign ant neoplasm of colon Colon Cancer Screen FIT/FOBT [place] Start: 2013 Respiratory Syncytia l Virus (RSV) or age 60 yrs+ (1 - 1-dose 60+ series) Respiratory Syncytial Virus (RSV) or age 60 yrs+ (1 - 1-dose 60+ series) [facility] Start: 04-22-2009 Pneumococcal Vaccine : Age 65+ (2 - PCV) Pneumococcal Vaccine: Age 65+ (2 - PCV) [facility] Start: [address] lung screening Low dose CT lung screening [place] Start: 2008 Screening for malign ant neoplasm of lung Low dose CT lung screening [place] Start: 2003 Administration of he rpes zoster vaccine Zoster Vaccines (1 of 2) [facility] Start: 2003 Screening for malign ant neoplasm of lung [facility] Start: 2003 Shingles Vaccine (1 of 2) Tabor gles Vaccine (1 of 2) [facility] Start: 1998 Screening for malign ant neoplasm of colon [facility] Start: 1993 Diabetes screen Diabetes screen [facility] Work Phone: Start: 1971 Hepatitis C screening [facility] Start: 1965 Depression screening using PHQ-9 (Patient Health Questionnaire 9) score Depression Screening (PHQ-2/9) [facility] Start: 1956 History and physical examination, annual for health maintenance Wellness Visit [facility] Start: 1953 COVID-19 Vaccine (#1) COVID-19 Vacci ne (#1) [facility] Start: 1953 Hepatitis C screen Hepatitis C scree n [place] Start: 1953 Hepatitis C screening Hepatitis C sc allison [place] Start: 1953 Prostate specific an tigen measurement PSA Level [facility] Start: 1953 Screening for malign ant neoplasm of colon [facility] End: 05-02-2019 Bacteria identified Cx Nom (U) Urine Culture Microbiology Routine Burning with urination 1 Occurrences starting 05/02/2019 until 05/02/2019 [place] Comment on above: 1 Occurrences starti ng 05/02/2019 until 05/02/2019 Bacteria identified Cx Nom (U) Urine Culture Microbiology Routine Burning with urination 05/02/2019 3:00 PM [place] End: 10-17-2023 Baseline Diagnostic Sleep Study Baseline Diagnostic Sleep Study Sleep Center Routine Excessive daytime sleepiness Other sleep apnea 1 Occurrences starting 10/17/2023 until 10/17/[address] [facility] Comment on above: 1 Occurrences starti ng 10/17/2023 until 10/17/2023 End: 12-03-2019 Cardiac event monitor Cardiac event monitor Cardiac Services Routine Palpitations 1 Occurrences starting 12/03/2019 until 12/03/2019 [place] Comment on above: 1 Occurrences starti ng 12/03/2019 until 12/03/2019 End: 06-07-2019 Cardiac event monitor Cardiac event monitor Cardiac Services Routine Palpitations 1 Occurrences starting 06/07/2019 until 06/07/2019 [facility] Work Phone: Comment on above: 1 Occurrences starti ng 06/07/2019 until 06/07/2019 End: 03-06-2020 Dermatology Pathology Dermatology Pathology Lab Routine Once for 1 Occurrences starting 03/06/2020 until 03/06/2020 [place] Comment on above: Once for 1 Occurrenc es starting 03/06/2020 until 03/06/2020 EKG 12 Lead [facility] [place] End: 04-04-2019 Holter monitor 48 hour Holter monitor 48 hour Cardiac Services Routine One Time for 1 Occurrences starting 04/04/2019 until 04/04/2019 [place] Comment on above: One Time for 1 Occur rences starting 04/04/2019 until 04/04/2019 End: 04-04-2020 Holter Monitor 48 Hour Holter Monitor 48 Hour Cardiac Services Routine Palpitations 1 Occurrences starting 04/04/2019 until 04/04/2020 [place] Comment on above: 1 Occurrences starti ng 04/04/2019 until 04/04/2020 Initiate Oxygen Ther apy Protocol Initiate Oxygen Therapy Protocol Respiratory Care Routine Daily until discontinued starting 11/19/2019, 2 completed [place] Comment on above: Daily until disconti nued starting 11/19/2019, 2 completed End: 07-30-2019 PSA, free PSA, free Lab Routine Once for 1 Occurrences starting 07/30/2019 until 07/30/2019 [place] Comment on above: Once for 1 Occurrenc es starting 07/30/2019 until 07/30/2019 PSA, free PSA, free Lab Ro utine 07/30/2019 1:01 PM EST [place] End: 04-09-2020 Surgical Pathology Surgical Pathology Lab Routine Skin lesion of left arm Squamous cell cancer of skin of forearm, left 1 Occurrences starting 04/09/2020 until 04/09/2020 [place] Comment on above: 1 Occurrences starti ng 04/09/2020 until 04/09/2020 End: 11-19-2019 THYROID PROF W/ TSH THYROID PROF W/ TSH Lab Routine One Time for 1 Occurrences starting 11/19/2019 until 11/19/2019 [place] Comment on above: One Time for 1 Occur rences starting 11/19/2019 until 11/19/2019 End: 11-19-2019 Urinalysis, reflex to microscopic Urinalysis, reflex to microscopic Lab STAT One Time for 1 Occurrences starting 11/19/2019 until 11/19/2019 [place] Comment on above: One Time for 1 Occur rences starting 11/19/2019 until 11/19/2019 End: 04-04-2019 XR CHEST PORTABLE XR CHEST PORTABLE Imaging STAT Once for 1 Occurrences starting 04/04/2019 until 04/04/2019 [place] Comment on above: Once for 1 Occurrenc es starting 04/04/2019 until 04/04/2019 XR CHEST PORTABLE XR CHEST ALFREDO BLE Imaging STAT 04/04/2019 4:38 PM EST [place] Immunizations Immunization Date Immunization Notes Care Provider Caio avera [facility] 05-02-2023 Influenza, FLUAD, (a ge 65 y+), Adjuvanted, 0.5mL Mwhz Schedule [facility] 05-02-2023 influenza virus vaccine, unspecified formulation Siomara Brown DPM Work Phone: [facility] 04-27-2022 Influenza, FLUAD, (a ge 65 y+), Adjuvanted, 0.5mL Mwhz Schedule [facility] 04-15-2021 COVID-19, PFIZER PUR PLE top, DILUTE for use, (age 12 y+), 30mcg/0.3mL Mwhz Schedule [facility] 08-19-2020 COVID-19, Pfizer, PF , 30mcg/0.3mL Doug Arteaga MD Work Phone: [facility] 07-29-2020 COVID-19, Pfizer, PF , 30mcg/0.3mL Doug Arteaga MD Work Phone: [facility] 04-09-2020 influenza, injectabl e, quadrivalent, preservative free [facility], [place] 02-25-2020 pneumococcal polysaccharide vaccine, 23 valent Doug [facility] 04-29-2019 influenza virus vaccine, live, attenuated, for intranasal use Juan A SILVANO [facility] 04-29-2019 influenza virus vaccine, unspecified formulation Doug Arteaga MD Work Phone: [facility] 04-16-2019 influenza, injectabl e, quadrivalent, preservative free Mwh [facility], [place] 06-08-2018 pneumococcal conjuga te vaccine, 13 valent Siomara Mejia [facility] 04-05-2018 influenza, injectabl e, quadrivalent, preservative free Mwhz Schedule [facility] 04-09-2017 Influenza Vaccine, unspecified formulation [facility] , [place] 04-09-2017 influenza, injectabl e, quadrivalent, preservative free Mwhz Schedule [facility] 03-19-2016 influenza, injectabl e, quadrivalent, preservative free [facility], [place] 03-19-2014 influenza virus vaccine, unspecified formulation [facility] 02-11-2014 tetanus toxoid, redu brenda diphtheria toxoid, and acellular pertussis vaccine, adsorbed [facility]arben Mejia [facility] 04-22-2008 pneumococcal polysaccharide vaccine, 23 valent [facility], [place] Payers Date Payer Category Payer Private Health Insurance [employer] [id number] 2018 Medicare MEDICARE [id number] 2017 Medicare MEDICARE MEDICAR E PART A AND B xxxxxxxxxxx 2017-Present [phone] [place] [address] xxxxxxxxxxx [id number] 2017 Unknown [employer] M [employer] [place] [facility] [place] xxxxxxxxxxxx 2017-Present [phone] [address] [place] [address] xxxxxxxxxxxx [id number] [employer] HMO [id number] 2015-Present [phone] [address] [place] [address] [id number] 1959 Medicare [id number] 1959 Unknown [id number] .[id number] 1953 Unknown [id number] 2.16.840.1.397165.3.579.2 .593 1953 Unknown [id number] 2.16.840.1.749147.3.579.2 .593 1953 Unknown [id number] 2.16.840.1.538305.3.579.2 .593 1953 Unknown [id number] 2.16.840.1.030833.3.579.2 .727 1953 Unknown [id number] 2.16.840.1.187134.3.579.2 .727 1953 Unknown [id number] 2.16.840.1.450744.3.579.2 .727 1953 Unknown [id number] 2.16.840.1.885351.3.579.2 .727 1953 Unknown [id number] 2.16.840.1.826346.3.579.2 .727 1953 Unknown [id number] 2.16.840.1.566347.3.579.2 .727 1953 Unknown [id number] 2.16.840.1.966452.3.579.2 .727 1953 Unknown [id number] 2.16.840.1.352165.3.579.2 .1259 1953 Unknown [id number] 2.16.840.1.672659.3.579.2 .1259 1953 Unknown [id number] 2.16.840.1.021858.3.579.2 .1259 1953 Unknown [id number] 2.16.840.1.273625.3.579.2 .174 1953 Unknown [id number] 2.16.840.1.754668.3.579.2 .174 1953 Unknown [id number] 2.16.840.1.582612.3.579.2 .174 1953 Unknown [id number] 2.16.840.1.880582.3.579.2 .174 1953 Unknown [id number] 2.16.840.1.617395.3.579.2 .174 1953 Unknown [id number] 2.16.840.1.050832.3.579.2 .174 1953 Unknown [id number] 2.16.840.1.537688.3.579.2 .174 Social History Date Type Detail Facility Start: 04-04-2019 End: 11-16-2023 Tobacco smoking status NHIS Current every day smoker [facility] History of tobacco use Cigarette Smoker [place] Start: 04-04-2019 End: 12-14-2022 Cigarettes smoked current (pack per day) - Reported Design A [facility] [employer] Start: 04-04-2019 End: 12-14-2022 Alcohol intake No [place] Start: 1955 Sex Assigned At Not on file [place] Start: 04-16-2019 End: 08-30-2024 Alcohol intake Current non-drinker of alcohol (finding) [place] Exposure to SARS-CoV -2 (event) Unable to assess [place] Start: 01-14-2020 End: 11-16-2023 Tobacco use and exposure Never used [place] Exposure to SARS-CoV -2 (event) Not sure [place] Start: 02-25-2020 End: 03-05-2021 History SDOH Financial 5 [place] Start: 02-25-2020 End: 03-05-2021 History SDOH Food Worry 1 [place] Start: 05-08-2019 Tobacco smoking status Light tobacco smoker (finding) [facility] How often to you hav e a drink containing alcohol? Never [facility] How many standard drinks containing alcohol do you have on a typical day? Patient does not drink [employer] (I/We) worried wheth er (my/our) food would run out before (I/we) got money to buy more. Never true [employer] At any time in the p ast 12 months, were you homeless or living in longterm [including now]? No [employer] History of tobacco use Passive smoker [employer] How hard is it for y ou to pay for the very basics like food, housing, medical care, and heating Not very hard [employer] Start: 08-21-2024 Tobacco use and exposure User of smokeless tobacco [facility] Start: 08-21-2024 End: 11-05-2024 Alcoholic beverage intake Ex-drinker (finding) [facility] Start: 1955 Sex assigned at Male [facility] Start: 09-25-2023 Gender identity Identifies as male gender (finding) [facility] Start: 09-25-2023 Sexual orientation Heterosexual (finding) [facility] Start: 07-09-2012 Sex Male (finding) [facility] [facility] Functional Status Date Assessment Result Facility 05-15-2024 Functional Status N/A [facility] 05-15-2024 Functional Status [facility] 04-21-2023 Functional Status N/A [facility] 11-27-2022 Functional Status N/A [facility] 05-15-2022 Functional Status N/A [facility] 01-02-2022 Functional Status N/A [facility] Clinical Notes 04-18-2017 to 11-05-2024 Siomara Brown DPM - 11/05/2024 2:15 PM Betina Brown DPM - 10/11/2024 1:00 PM Betina Brown DPM - 08/21/2024 1:00 PM EDT Note Date & Type Note Facility 11-05-2024 History of Presen t illness Narrative Nory Dsouza is a 69 y.o. male presents with chief complaint of left foot callouses. HPI: HPI Pt states little better, callus pain lat foot and heel. Denies any injury. Would like shoe suggestions due to b/l lower leg swelling. Edema wrapped and improved, PT going well SUBJECTIVE: Diabetic/Routine Nail Care: Location: nails on bilateral feet. Severity of symptoms: mild numb/tingle. Onset:gradual. Status:no change. Context: hard to trim, hard to reach. NAILS-thickened, discolored, pain. Relieved by debridement, filing down nails, clipping nails. History of ulcers/wounds: no. PCP Dr. Arteaga Date of Last visit 06-25-24 Aggravated by shoe gear, pressure Thick,tender , hard to trim. Painful lesions lat left foot- not sure about shoes fiting, high top NB currently MEDICATIONS: Current Outpatient Medications Medication Instructions dexAMETHasone (Decadron) 0.5 MG tablet 1 tablet, Daily dilTIAZem CD (Cardizem CD) 120 MG 24 hr capsule 1 capsule, Daily imiquimod (Aldara) 5 % cream 1 packet, Topical, Nightly, And cover with tape/bandaid lansoprazole (Prevacid) [address] capsule Daily before breakfast metoprolol tartrate (Lopressor) 25 MG tablet 1 tablet, 2 times daily pravastatin (Pravachol) 40 MG tablet 1 tablet, Daily ALLERGIES: No Known Allergies REVIEW OF SYMPTOMS: Review of Systems Constitutional: Negative for chills and fever. Respiratory: Negative for shortness of breath. Cardiovascular: Negative for chest pain. Gastrointestinal: Negative for abdominal pain. Neurological: Negative for dizziness. Psychiatric/Behavioral: Negative for confusion. OBJECTIVE: Visit Vitals Smoking Status Every Day Physical Exam General General Appearance: appears stated age and healthy Orientation: alert and oriented to person, place, and time Right Foot/Ankle Inspection and Palpation Ecchymosis: none Tenderness: none Swelling: none Arch: normal Hammertoes: second toe, third toe, fourth toe and fifth toe Hallux valgus: no Hallux limitus: no Skin Exam: skin intact; Atrophic skin and neg digital hair Neurovascular- mild edema Dorsalis pedis: 3+ Posterior tibial: 3+ absent sharp sensation lesser toes and 2 areas 5.07 monofilament Achilles reflex: 2+ Babinski reflex: 2+ Muscle Strength Ankle dorsiflexion: 5 Ankle plantar flexion: 5 Ankle inversion: 5 Ankle eversion: 5 Great toe extension: 5 Great toe flexion: 5 Range of Motion Normal right ankle ROM Nails: Digit 1 thick,yellow,crumbling 6mm Digit 2 thick,yellow,crumbling 4mm Digit 3 thick,yellow,crumbling 5mm Digit 4 thick,yellow,crumbling 3mm Digit 5 thick,yellow,crumbling 4mm Left Foot/Ankle Inspection and Palpation Ecchymosis: none Tenderness: none Swelling: none Arch: normal Hammertoes: second toe, third toe, fourth toe and fifth toe Claw toes: absent Hallux valgus: no Hallux limitus: no Skin Exam: skin intact; lat 5th met pinpoint dry 5th met base red, 1mm callus, central heel also 2mm lesion Atrophic skin and neg digital hair Neurovascular-2/3 edema Dorsalis pedis: 3+ Posterior tibial: 3+ absent sharp sensation lesser toes and 2 areas 5.07 monofilament Achilles reflex: 2+ Babinski reflex: 2+ Muscle Strength Ankle dorsiflexion: 5 Ankle plantar flexion: 5 Ankle inversion: 5 Ankle eversion: 5 Great toe extension: 5 Great toe flexion: 5 Range of Motion Normal left ankle ROM Nails: Digit 1 thick,yellow,crumbling nail bed, no nail Digit 2 thick,yellow,crumbling 5mm Digit 3t hick,yellow,crumbling 4mm Digit 4 thick,yellow,crumbling 3mm Digit 5 thick,yellow,crumbling 4mm Stasis changes bilat legs, ankles, lesions incr pain more on lat compression ASSESSMENT AND PLAN: Assessment/Plan Neuropathy, prob verrucae x 3 left with accomodation needed- much improvbed Neuropathy: caution for wounds and regular inspections. any new problems with appt sugg. pain can b treated with topical or oral measures, many were offered. pain can b managed with topcial or oral methods and offered today Resume orth sugg WART TREATMENT: home care and shoe and foot hygien reviewed for improvment and topcial care planned and surgery if slow progress Verrucide offered vs Rx New shoes fitting well and feeling better NB 928, [place] Addiction documented in this encounter [facility] 10-11-2024 History of Presen t illness Narrative Nory Dsouza is a 69 y.o. male presents with chief complaint of Foot Callouses (Left foot callous f/u) HPI: HPI Pt states little better, callus pain lat foot and heel. Denies any injury. Would like shoe suggestions due to b/l lower leg swelling. Edema wrapped and improved, PT going well SUBJECTIVE: Diabetic/Routine Nail Care: Location: nails on bilateral feet. Severity of symptoms: mild numb/tingle. Onset:gradual. Status:no change. Context: hard to trim, hard to reach. NAILS-thickened, discolored, pain. Relieved by debridement, filing down nails, clipping nails. History of ulcers/wounds: no. PCP Dr. Arteaga Date of Last visit 06-25-24 Aggravated by shoe gear, pressure Thick,tender , hard to trim. Painful lesions lat left foot- not sure about shoes fiting, high top NB currently MEDICATIONS: Current Outpatient Medications Medication Instructions dexAMETHasone (Decadron) 0.5 MG tablet 1 tablet, Daily dilTIAZem CD (Cardizem CD) 120 MG 24 hr capsule 1 capsule, Daily lansoprazole (Prevacid) [address] capsule Daily before breakfast metoprolol tartrate (Lopressor) 25 MG tablet 1 tablet, 2 times daily pravastatin (Pravachol) 40 MG tablet 1 tablet, Daily ALLERGIES: No Known Allergies REVIEW OF SYMPTOMS: Review of Systems Constitutional: Negative for chills and fever. Respiratory: Negative for shortness of breath. Cardiovascular: Negative for chest pain. Gastrointestinal: Negative for abdominal pain. Neurological: Negative for dizziness. Psychiatric/Behavioral: Negative for confusion. OBJECTIVE: Visit Vitals BP 122/68 Pulse 68 Smoking Status Every Day Physical Exam General General Appearance: appears stated age and healthy Orientation: alert and oriented to person, place, and time Right Foot/Ankle Inspection and Palpation Ecchymosis: none Tenderness: none Swelling: none Arch: normal Hammertoes: second toe, third toe, fourth toe and fifth toe Hallux valgus: no Hallux limitus: no Skin Exam: skin intact; Atrophic skin and neg digital hair Neurovascular- mild edema Dorsalis pedis: 3+ Posterior tibial: 3+ absent sharp sensation lesser toes and 2 areas 5.07 monofilament Achilles reflex: 2+ Babinski reflex: 2+ Muscle Strength Ankle dorsiflexion: 5 Ankle plantar flexion: 5 Ankle inversion: 5 Ankle eversion: 5 Great toe extension: 5 Great toe flexion: 5 Range of Motion Normal right ankle ROM Nails: Digit 1 thick,yellow,crumbling 6mm Digit 2 thick,yellow,crumbling 4mm Digit 3 thick,yellow,crumbling 5mm Digit 4 thick,yellow,crumbling 3mm Digit 5 thick,yellow,crumbling 4mm Left Foot/Ankle Inspection and Palpation Ecchymosis: none Tenderness: none Swelling: none Arch: normal Hammertoes: second toe, third toe, fourth toe and fifth toe Claw toes: absent Hallux valgus: no Hallux limitus: no Skin Exam: skin intact; lat 5th met 4mm dry 5th met base red, 5mm callus, central heel also 4mm lesion Atrophic skin and neg digital hair Neurovascular-2/3 edema Dorsalis pedis: 3+ Posterior tibial: 3+ absent sharp sensation lesser toes and 2 areas 5.07 monofilament Achilles reflex: 2+ Babinski reflex: 2+ Muscle Strength Ankle dorsiflexion: 5 Ankle plantar flexion: 5 Ankle inversion: 5 Ankle eversion: 5 Great toe extension: 5 Great toe flexion: 5 Range of Motion Normal left ankle ROM Nails: Digit 1 thick,yellow,crumbling nail bed, no nail Digit 2 thick,yellow,crumbling 5mm Digit 3t hick,yellow,crumbling 4mm Digit 4 thick,yellow,crumbling 3mm Digit 5 thick,yellow,crumbling 4mm Stasis changes bilat legs, ankles, lesions incr pain more on lat compression ASSESSMENT AND PLAN: Assessment/Plan Neuropathy, prob verrucae x 3 left with accomodation needed Elevation support stockings and following prescribed medication for fluid management and reviewed in detail. Compression discussed with necessity Neuropathy: caution for wounds and regular inspections. any new problems with appt sugg. pain can b treated with topical or oral measures, many were offered. pain can b managed with topcial or oral methods and offered today Resume orth sugg CANTHARIDIN APPLICATION: area was debrided of loose and hyperkeratotic tissue, cleaned and cantharidin applied and covered with instr to wash off in 5hrs. risk of blister or irritiation cautioned WART TREATMENT: home care and shoe and foot hygien reviewed for improvment and topcial care planned and surgery if slow progress Verrucide offered vs Rx New shoes fitting well and feeling better documented in this encounter [facility] 08-21-2024 History of Presen t illness Narrative Nory Dsouza is a 69 y.o. male presents with chief complaint of Follow-up (Nailcare) HPI: HPI Pt states LT hallux toenail fell off about 2 wks ago. Denies any injury. Would like shoe suggestions due to b/l lower leg swelling. SUBJECTIVE: Diabetic/Routine Nail Care: Location: nails on bilateral feet. Severity of symptoms: mild numb/tingle. Onset:gradual. Status:no change. Context: hard to trim, hard to reach. NAILS-thickened, discolored, pain. Relieved by debridement, filing down nails, clipping nails. History of ulcers/wounds: no. PCP Dr. Arteaga Date of Last visit 06-25-24 Aggravated by shoe gear, pressure Thick,tender , hard to trim. Painful lesions lat left foot- not sure about shoes fiting, high top NB currently MEDICATIONS: Current Outpatient Medications Medication Instructions dexAMETHasone (Decadron) 0.5 MG tablet 1 tablet, Daily dilTIAZem CD (Cardizem CD) 120 MG 24 hr capsule 1 capsule, Daily furosemide (Lasix) 20 MG tablet 1 tablet, Oral, Daily lansoprazole (Prevacid) [address] capsule Daily before breakfast metoprolol tartrate (Lopressor) 25 MG tablet 1 tablet, 2 times daily pravastatin (Pravachol) 40 MG tablet 1 tablet, Daily ALLERGIES: No Known Allergies REVIEW OF SYMPTOMS: Review of Systems Constitutional: Negative for chills and fever. Respiratory: Negative for shortness of breath. Cardiovascular: Negative for chest pain. Gastrointestinal: Negative for abdominal pain. Neurological: Negative for dizziness. Psychiatric/Behavioral: Negative for confusion. OBJECTIVE: Visit Vitals BP 111/62 Pulse 55 Ht 5' 8 Wt 230 lb BMI 34.97 kg/m Smoking Status Every Day BSA 2.23 m Physical Exam General General Appearance: appears stated age and healthy Orientation: alert and oriented to person, place, and time Right Foot/Ankle Inspection and Palpation Ecchymosis: none Tenderness: none Swelling: none Arch: normal Hammertoes: second toe, third toe, fourth toe and fifth toe Hallux valgus: no Hallux limitus: no Skin Exam: skin intact; Atrophic skin and neg digital hair Neurovascular- mild edema Dorsalis pedis: 3+ Posterior tibial: 3+ absent sharp sensation lesser toes and 2 areas 5.07 monofilament Achilles reflex: 2+ Babinski reflex: 2+ Muscle Strength Ankle dorsiflexion: 5 Ankle plantar flexion: 5 Ankle inversion: 5 Ankle eversion: 5 Great toe extension: 5 Great toe flexion: 5 Range of Motion Normal right ankle ROM Nails: Digit 1 thick,yellow,crumbling 6mm Digit 2 thick,yellow,crumbling 4mm Digit 3 thick,yellow,crumbling 5mm Digit 4 thick,yellow,crumbling 3mm Digit 5 thick,yellow,crumbling 4mm Left Foot/Ankle Inspection and Palpation Ecchymosis: none Tenderness: none Swelling: none Arch: normal Hammertoes: second toe, third toe, fourth toe and fifth toe Claw toes: absent Hallux valgus: no Hallux limitus: no Skin Exam: skin intact; lat 5th met 1cm dry healed blister, 5th met base red, 5mm callus Healing wound dorsal gr toe bed, dry,eschar Atrophic skin and neg digital hair Neurovascular-2/3 edema Dorsalis pedis: 3+ Posterior tibial: 3+ absent sharp sensation lesser toes and 2 areas 5.07 monofilament Achilles reflex: 2+ Babinski reflex: 2+ Muscle Strength Ankle dorsiflexion: 5 Ankle plantar flexion: 5 Ankle inversion: 5 Ankle eversion: 5 Great toe extension: 5 Great toe flexion: 5 Range of Motion Normal left ankle ROM Nails: Digit 1 thick,yellow,crumbling nail bed, no nail Digit 2 thick,yellow,crumbling 5mm Digit 3t hick,yellow,crumbling 4mm Digit 4 thick,yellow,crumbling 3mm Digit 5 thick,yellow,crumbling 4mm Stasis changes bilat legs, ankles, ASSESSMENT AND PLAN: Assessment/Plan Neuropathy, mycotic nails, healing wound left `1, preulcerative lesions left x 2 5th met. Pain left Elevation support stockings and following prescribed medication for fluid management and reviewed in detail. Compression discussed with necessity Neuropathy: caution for wounds and regular inspections. any new problems with appt sugg. pain can b treated with topical or oral measures, many were offered. pain can b managed with topcial or oral methods and offered today Nails: all thick and dystrophic nails debrided of all affected and loose material Daily cleanse and AB drsg planned. Call if any incr redness, swelling, pain or drainage. Risk of infection entering deep tissues - x 1wk gr toe Left 5 til painfree Shoes measure 12 EEEE, wearing 9 EEEE- changes planned documented in this encounter [facility] 06-01-2024 Note Discharge Summary Admission and Discharge Information Admitting Physician - Zunilda CHACON MD Consulting Physician - Hiram Sunshine MD Admitting Diagnoses: 1. TIA (transient ischemic attack), 05/15/2024 Discharge Diagnoses 1. TIA (transient ischemic attack), 05/15/2024 2. Hyperlipidemia, 05/15/2024 3. HTN (hypertension), 05/15/2024 4. GERD (gastroesophageal reflux disease), 05/15/2024 5. Smoker, 05/15/2024 Paresthesia, 05/15/2024 Weakness or fatigue, 05/15/2024 Procedure History Repair of umbilical hernia (02/2010), lump removal (2008), Closed fracture of foot (2004), Colonoscopy (2004), Reactive arthritis of foot. Hospital Course The patient was admitted with acute TIA symptoms with left-sided weakness and paresthesias that had resolved by the time of arrival to the hospital. The ED provider believed there was some tongue deviation persistent at the time of admission, but this was not appreciated by the hospitalist provider on exam on admission. A CT of the head was unremarkable for acute changes. An MRI of the brain and neurology consult were ordered. The patient was unable to tolerate an MRI. In consult with neurology service, a CTA of the head and neck were obtained which revealed less than 10% stenosis in the bilateral internal carotid arteries and CT of the head was completely negative. The patient was insisting that he felt fine and was demanding to be discharged. He did not want to wait for neurology evaluation. After discussion with the neurology service, outpatient follow-up was planned as his symptoms had completely resolved. He was discharged home on low-dose daily aspirin and atorvastatin. He should follow-up with the neurology service in 1 to 2 weeks and with his PCP within 1 week. Physical Exam General: alert, no acute distress, Obese Skin: warm, dry Head: no trauma, normocephalic Neck: Trachea midline, no adenopathy, no tenderness Eye: normal conjunctiva, sclera clear ENMT: oral mucosa moist Cardiovascular: regular rhythm, normal rate, normal peripheral perfusion Respiratory: Lungs CTA, respirations non labored Chest wall: no deformity. Gastrointestinal: soft, non distended, no tenderness, no guarding. Back: No tenderness, Normal ROM, Normal alignment. Extremities: no deformity, no trauma, BLE venous stasis dermatitis, 3+ edema Neurological: oriented x 4, LOC appropriate for age, CN II-XII intact, motor strength equal & normal bilaterally, sensation equal & normal bilaterally, speech normal Psychiatric: cooperative, affect hostile, normal judgement, normal psychiatric thoughts. Tests Performed CT Head or Brain w/o Contrast CTA Head CTA Neck Echo w/ Saline Bubbles XR Chest Single View Discharge Plan Discharge Disposition Discharge To, Anticipated II - Home independently Discharged to - Home independently Transported by, Anticipated - Family Discharge Diet Discharge Diet(s): Fat Modified- Low cholesterol (05/16/24 11:57:00) Discharge Medication List Prescriptions aspirin 81 mg Oral EC Tab, 81 mg= 1 tab(s), Oral, Daily atorvastatin 40 mg Tab, 40 mg= 1 tab(s), Oral, Daily Home DilTIAZem (Eqv-Cardizem CD) 120 mg/24 hours oral capsule, extended release, See Instructions Lopressor 25 mg oral tablet, See Instructions Prevacid 30 mg Cap-EC, 1 cap(s), Oral, Daily Follow-up With When Contact Information Darius FISCHER, SIERRA Ayala 06/04/2024 01:40 PM EST [address] [place] [phone]- Business (1) Additional Instructions: Please, arrive 15 minutes early to do in patient paper work. DOUG ARTEAGA Within 5 to [address] [place] [address]- [employer] (1) Additional Instructions: Office was closed for lunch. Patient needs to call to make hospital follow up appointment. Patient Education Transient Ischemic Attack [facility] Comment on above: Result Comment: Elec tronically Signed By: Tim SPENCER, Vilma Duron\.maame\Date and Time Signed: 06/01/24 15:06 EST\.br\Electronically Co-Signed By: INES FISCHER, Zunilda\.br\Date and Time Co-Signed: 06/01/24 15:13 EST 05-16-2024 Note Echocardiology Procedure Exam Date/Time Accession # Ordering Echo w/ Saline Bubbles 05/16/2024 10:10 EST [id number] Vilma Gaines CPT code 16870 [id number] Reason for Exam (Echo w/ Saline Bubbles) CVA Report [facility] [address] [place] [address] Adult Echocardiogram Report Name: NORY DSOUZA Study Date: 05/16/2024 09:04 AM BP: 135/70 mmHg Patient Location: N3 01 [facility] Bed(s) [facility] : 1955 Gender: Male Height: 65.5 in Age: 69 yrs Ethnicity: T Weight: 238 lb Reason For Study: CVA [...] Signed by: Ernesto Sanders MD Transcribed by: Technologist: [facility] 05-16-2024 Hospital Discharg e instructions Patient [...] Follow these instructions at home: Medicines Take rxic-fiu-zfxjmci and prescription medicines only as told by [...] were prescribed. Where to find more information [employer] [employer]: stroke.org Get help right away [...] provider. Document Revised: 10/29/2022 Document Reviewed: 10/29/2022 [employer] Patient Education 2023 Performable. Follow Up Care 05/15/2024 14:53:10 With:Darius FISCHER, SIERRA Ayala Address: [address] [place] [address]- Business (1) When:06/04/2024 13:40:00 Comments:Please, arrive 15 minutes early to do in patient paper work. With:DOUG ARTEAGA Address: [address] [place] [address] [place] [address]- Business (1) When:5 to 7 days Comments:Office was closed for lunch. Patient needs to call to make hospital follow up appointment. [facility] 05-16-2024 Evaluation + Plan note Extrac shameka [...] with Cult Rflx XR Chest Single View [facility] 12-18-2024 NoteConsultation Note Chief Complaint left side [...] Light touch normal. CEREBELLAR: No limb ataxia. 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 [facility]Result Comment: Electronically Signed By: Deysi Uribe RN\.br\Date and Time Signed: 05/16/24 09:32 EST\.br\Electronically Co-Signed By: Renan Clarke DO\.br\Date and Time Co- Signed: 05/16/24 09:46 [id number] NoteInterdisciplinary Note - PT PT evaluation completed with an AM-PAC six clicks score of 23/24. Pt. completes bed mobility and transfers at Mod I level. Pt. ambulates 64 ft. with FWW with supervision progressing to Mod I level. Pt.'s FWW height is too high, although he feels this is comfortable for him and he prefers this. No immediate PT needs at this time. Recommend outpatient PT services upon discharge as his terminal manager goal is to wean off FWW. Recommend use of FWW at all times until further notice. [facility]12-17-2024 NoteHistory and Physical Chief Complaint pt [...] E9/L (05/15/24 15:01:00) RBC: 3.8 E12/L Low (05/15/24:01:00) HGB: 13.3 gm/dL Low (05/15/24::00) Hct: 39.4 % (05/15/24:01:00) MCV: 103 fL High (05/15/24:01:00) MCH: 34.7 pg High (05/15/24::00) MCHC: 33.7 gm/dL (05/15/24::00) RDW: 14.8 % High (05/15/24:01:00) Platelet: 94 E9/L Low (05/15/24:01:00) MPV: 10.5 fL (05/15/24:01:00) Neutro Auto: 52.8 % (05/15/24:01:00) Lymph Auto: 29.8 % (05/15/24:01:00) Trigg Auto: 16.6 % High (05/15/24:01:00) Eos Auto: 0.3 % (05/15/24:01:00) Basophil Auto: 0.5 % (05/15/24::00) Neutro Absolute: 2.7 E9/L (05/15/24::00) Lymph Absolute: 1.5 E9/L (05/15/24::00) Trigg Absolute: 0.8 E9/L (05/15/24::00) Eos Absolute: 0 E9/L (05/15/24::00) Basophil Absolute: 0 E9/L (05/15/2400) PT: 12.1 second(s) (05/15/24::00) INR: 1.08 (05/15/2400) PTT: 29.6 second(s) (05/15/24:00) Glucose Lvl: 89 mg/dL (05/15/24) BUN: 17 mg/dL (05/15/24) Creatinine: 0.9 mg/dL (05/15/24) eGFR: 91 mL/min/1.73 m2 (05/15/24:) BUN/Creat Ratio: 19 (05/15/24::00) Sodium Lvl: 138 mmol/L (05/15/24:00) Potassium Lvl: 4.3 mmol/L (05/15/24:00) Chloride: 105 mmol/L (05/15/24::00) CO2: 29 mmol/L (05/15/24:) AGAP: 8 mEq/L (05/15/2400) Calcium Lvl: 8.7 mg/dL Low (05/15/24::00) Alk Phos: 62 Int._Unit/L (05/15/24::00) ALT: 10 Int._Unit/L (05/15/24::00) AST: 17 Int._Unit/L (05/15/24::00) Total Protein: 6.8 gm/dL (05/15/24::00) Albumin Lvl: 4 gm/dL (05/15/24 15:01:00) Globulin: 2.8 gm/dL (05/15/24 15:01:00) A/G Ratio: 1.4 (05/15/24 15:01:00) Bili Total: 0.9 mg/dL (05/15/24 15:01:00) Troponin HS: 5.8 pg/mL Low (05/15/24 15:01:00) Glucose Cap: 79 mg/dL (05/15/24 15:04:00) POC Device SN: [id number] (05/15/24 15:04:00) POC User ID: [id number] (05/15/24 15:04:00) POC Username: [email or web address] (more content not included)...[facility] Comment on above:Result Comment: Electronically Signed By: Tim SPENCER, Vilma Duron\.br\Date and Time Signed: 05/15/2417:56 EST\.br\Electronically Co-Signed By: Zunilda CHACON MD\.br\Date and Time Co-Signed: 05/15/2419:06 [id number] History of Present illness Narrative* Lennie Nolan - 10/17/2023 8:15 PM EDT Patient arrived for sleep testing. Testing explained, all questions answered, pt voices understanding. [facility] Discharge instructions Patient Education 04/21/2023 13:48:58 [...] your health care provider. General instructions Take tnkz-cks-itfmgvq and prescription medicines only as told by [...] provider. Document Revised: 09/28/2019 Document Reviewed: 09/28/2019 [employer] Patient Education 2022 Performable. 04/21/2023 13:48:58 Acute Pain, Adult Acute Pain, [...] Follow these instructions at home: Medicines Take bwvm-yri-sdaiwlk and prescription medicines only as told by [...] pain is severe. ?Do not take other flja-bij-ghnuhvb pain medicines in addition to prescription pain [...] grains, and fresh fruits and vegetables. ?Take esrk-eok-ctpklih or prescription medicines. ?Limit foods that are [...] or you are no longer ill. Take ygzu-zst-yohsopl and prescription medicines only as told by [...] provider. Document Revised: 10/01/2019 Document Reviewed: 10/01/2019 [employer] Patient Education 2022 Performable. Follow Up Care 04/21/2023 13:14:23 With:DOUG ARTEAGA Address: [facility] [place] [address]- Business (1) When:04/24/2023 13:30:48 [facility]07-01-2023 Hospital Discharge instructions Patient Education 11/27/2022 19:31:51 Urinary Tract Infection, Adult, Uzrd-ur-Xems Urinary Tract Infection, Adult A urinary tract [...] Follow these instructions at home: Medicines Take zwqf-kxm-yzqrdps and prescription medicines only as told by [...] provider. Document Revised: 12/26/2020 Document Reviewed: 12/26/2020 [employer] Patient Education 2022 Performable. 11/27/2022 18:22:38 Supraventricular Tachycardia, Adult, Syih-za-Ijtg Supraventricular Tachycardia, Adult Supraventricular tachycardia (SVT) is [...] heartbeat as told by your doctor. Take frmw-dwt-obvcqxb and prescription medicines only as told by [...] provider. Document Revised: 12/27/2020 Document Reviewed: 12/27/2020 [employer] Patient Education 2022 Performable. You are currently taking four 25 mg doses of metoprolol daily. Starting Tuesday begin taking 2 tablets at dose #1 in the morning and 2 tablets at dose #3 in the late afternoon early evening. The otherdoses stay the same. Contact your assurance associate Tuesday. Take copies of your monitor strip and your EKG with you. New symptoms, dizziness, shortness of breath, chest pain, or sustained rapid heartbeat should bring you back here. Follow Up Care 11/27/2022 16:18:04 With:Contact your assurance associate Tuesday. Address:Unknown When: Unknown With:DOUG ARTEAGA Address: [address] [place] [address] [place] [address]- Business (1) When:Within 3 Day(s) [facility]07-01-2023 Evaluation + Plan noteExtracted from: Title:ED Note Author:Grant Vazquez MD Date: 3 1. SVT (supraventricular tac hycardia) (I47.1: Supraventricular tachycardia) Acute UTI (urinary tract infection) (N39.0: Urinary tract infection, site not specified) Orders: cephalexin, 500 mg = 1 cap(s), Oral, BID, X 7 day(s), # 14 cap(s), Refills(s) 0, Pharmacy: [id number], 170, cm, 11/27/22 16:29:00 EDT, Height/Length Dosing, 92.4, kg, 11/27/22 16:29:00 EDT, Weight Dosing cephalexin, 500 mg = 1 cap(s), Cap, Oral, Once, Stop date 11/27/22 18:58:00 EDT, STAT, Start date 11/27/22 18:58:00 EDT, 11/27/22 18:58:00 EDT metoprolol, See Instructions, 2 tabs in the morning and evening and 1 tab in the afternoon, # 20 tab(s), Refills(s) 0, Pharmacy: [facility] #[id number], 170, cm, 11/27/22 16:29:00 EDT, Height/Length Dosing, 92.4, kg, 11/27/22 16:29:00 EDT, Weight Dosing Diagnostic Tests Pending * Urine Culture 11/27/22 [facility]12-18-2022 Hospital Discharge instructions Patient Education 05/15/2022 23:39:24 Palpitations, Bwvw-aw-Mjmg Palpitations Palpitations are feelings that your heartbeat [...] a regular bed time. General instructions Take lhec-zqk-cytqmaf and prescription medicines only as told by [...] 02/22/2009 Document Revised: 06/28/2018 Document Reviewed: 06/28/2018 [employer] Patient Education 2020 Performable. 05/15/2022 23:39:22 Nonspecific Chest Pain, Adult, Zkpc-lq-Advu Nonspecific Chest Pain Chest pain can be [...] Follow these instructions at home: Medicines Take lskm-xkk-mcxljed and prescription medicines only as told by [...] a heart-healthy diet. A diet and nutrition and dietetics instructor (dietitian) can help you to learn healthy [...] 11/01/2008 Document Revised: 11/16/2018 Document Reviewed: 11/16/2018 [employer] Patient Education 2020 Performable. Follow Up Care 05/15/2022 19:43:58 With:ARNOL FISCHER, EWELINA CALVO Address: [address] [place] [address]. [place] [address]- When:05/17/2022 [facility]12-17-2022 Evaluation + Plan noteExtracted from: Title:ED Note Author:Shyam LEBLANC, Briana Kraft ate:05/15/22 1. Palpitations with regular cardiac rhythm [...] Troponin 6 Hr. XR Chest Single View [facility]08-07-2022 Evaluation + Plan noteExtracted from: Title:ED Note Author:Jose Daniel Silva DO Date :01/03/22 Palpitations (R00.2: Palpita tions) Orders: Automated Diff Basic Metabolic Panel CBC w/ Auto Diff ECG 12 Lead Adult ED Cardiac Monitoring eGFR Hepatic Function Panel Magnesium Level Oxygen Saturation Oxygen Therapy PT & PTT Saline Lock Insert Troponin 0 Hr. XR Chest Single View [facility]08-07-2022 Hospital Discharge instructions Patient Education 01/03/2022 01:25:02 Palpitations, Equb-zn-Apdn Palpitations Palpitations are feelings that your heartbeat [...] a regular bed time. General instructions Take bjjo-rmb-wznwrto and prescription medicines only as told by [...] 02/22/2009 Document Revised: 06/28/2018 Document Reviewed: 06/28/2018 [employer] Patient Education 2020 Performable. Follow Up Care 01/02/2022 22:55:07 With:DOUG ARTEAGA Address: [place] [address]- Business (1) When:01/06/2022 Comments:Follow-up with your primary care doctor next 2 to 3 days for further evaluation and management. Please return the ED for any new or worsening symptoms. [facility]04-05-2022 Evaluation + Plan noteExtracted from: Title:Discharge Note [...] to go home and f/u w/PCP and High Risk Case Manager. Plan was discussed with patient and family (if applicable) at bedside Orders: metoprolol, 25 mg = 1 tab(s), Oral, QID, # 120 tab(s), Refills(s) 0, Pharmacy: [facility] [facility], 170, cm, 08/30/21 1:31:00 EDT, Height/Length [...] AM EDT [address] [place] [address]- Business (1) Additional Instructions: Sagar Zamarripa [facility] [address] [place] [address]- Additional Instructions: Thrombocytopenia Extracted from: Title:Consult Note [...] was evaluated for something very similar in [place] seen by Dr. Elizabeth describes having Holter monitors, and event monitor and even a stress study it is not aware of any concerning findings. She has not seen his assurance associate in quite some period of time. We [...] Physician consult Hospitalist for continued care Troponin [facility]04-03-2022 Hospital Discharge instructions Follow Up Care 08/30/2021 01:23:32 With:Sagar Zamarripa Address: [facility] [address] [place] [address] [place] [address]- When: Unknown Comments:Thrombocytopenia With:DOUG ARTEAGA Address: [place] [address]- Business (1) When:09/07/2021 09:20:00 [facility]12-14-2017 Telephone encounter Note* Telephone Encounter - Kati Mendieta CNP - 05/12/2017 8:08 AM EST Needs appt [id number] Miscellaneous Notes* Telephone Encounter - Kati Mendieta CNP - 05/12/2017 8:08 AM EST Needs appt documented in this [id number] Telephone encounter Note* Telephone Encounter - Kati Mendieta CNP - 04/18/2017 7:30 AM EST Patient has not been seen since April 2016. Please arrange 1 month refill and office visit [id number] Miscellaneous Notes* Telephone Encounter - Kati Mendieta CNP - 04/18/2017 7:30 AM EST Patient has not been seen since April 2016. Please arrange 1 month refill and office visit [facility]* Diagnosis Hypercholesteremia Pure hypercholesterolemia Essential hypertension Unspecified essential hypertension documented in this encounter [employer] Phone: evaluation note* Diagnosis Screening PSA (prostate specific antigen) Special screening for malignant neoplasm of prostate documented in this encounter [employer] Phone: evaluation note* Diagnosis Palpitations [facility] [place] [facility]* Diagnosis Excessive daytime sleepiness Other sleep apnea documented in this [facility] Diagnosis Personal history of tobacco use Personal history of tobacco use, presenting hazards to health documented in this encounter [facility]* Diagnosis Screening for AAA (abdominal aortic aneurysm) Screening for other and unspecified cardiovascular conditions [facility]* Diagnosis Leg edema, left Edema [facility]* Diagnosis Chronic pain of right knee [facility]* Diagnosis Chronic bilateral low back pain without sciatica [facility]* Diagnosis Idiopathic progressive polyneuropathy- Primary Onychomycosis Dermatophytosis of nail Skin ulcer of left great toe, limited to breakdown of skin (CMS/HCC) Ulcer of left foot, limited to breakdown of skin (CMS/HCC) Left foot pain Pain in soft tissues of limb documented in this encounter [facility]* Diagnosis Plantar warts- Primary Plantar wart Left foot pain Pain in soft tissues of limb documented in this encounter [facility]* Diagnosis Plantar warts- Primary Plantar wart Left foot pain Pain in soft tissues of limb documented in this encounter [facility]* Diagnosis Prostate cancer screening Special screening for malignant neoplasm of prostate Primary hypertension Unspecified essential hypertension Hypercholesteremia Pure hypercholesterolemia documented in this encounter [facility] course Narrative No data available for this section [facility] instructions No data available for this section [facility] No data available for this section [facility] History of Present Illness * Rubi Berger [...] FoundDocuments on File Type Date Recorded 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 Please follow up with your assurance associate and family doctor in 1-2 days. * Attachments The following attachments cannot be sent through Care Everywhere. * Rate-Control Medicines: General Info (Montenegrin) documented in this encounter* Attachments The following attachments cannot be sent through Care Everywhere. * Cardiac Arrhythmia (Montenegrin) documented in this encounter* Attachments The following attachments cannot be sent through Care Everywhere. * Numbness and Tingling (Montenegrin) documented in this encounter* Attachments The following attachments cannot be sent through Care Everywhere. * Numbness and Tingling (Montenegrin) documented in this encounter* Attachments The following attachments cannot be sent through Care Everywhere. * Diplopia (Montenegrin) documented in this encounter* Attachments The following attachments cannot be sent through Care Everywhere. * Palpitations (Montenegrin) documented in this encounter Reason for Referral Status Reason Specialty Diagnoses / Procedures Referre d By Contact Referred To Contact Closed EKG Diagnoses Palpitations Procedures Cardiac event monitor Demetrius Jimenez MD [address] [place] [phone] [facility] [address] [place] [address] Status Reason Specialty Diagnoses / Procedures Referred By Contact Referred To Contact Open Diagnoses Palpitations Procedures Holter Monitor 48 Hour Siomara Mejia MD [address] [place] [phone] Status Reason Specialty Diagnoses / Procedures Referre d By Contact Referred To Contact Open Diagnoses Palpitations Procedures Cardiac event monitor [facility] MONIT[facility] - [facility] Demetrius Jimenez MD [address] [place] [phone] Specialty Diagnoses / Procedures Referred By Contac t Referred To Contact Sleep Center Diagnoses Excessive daytime sleepiness Other sleep apnea Procedures Baseline Diagnostic Sleep Study Doug Arteaga MD [address] [place] [phone] Referral ID Status Reason Start Date Expiration Date V isits Requested Visits Authorized [id number] Not Required - RTA 09/12/2023 09/11/2024 1 1 Specialty Diagnoses / Procedures Referred By Contac t Referred To Contact Radiology Diagnoses Personal history of tobacco use Procedures CT Lung Screen (Initial/Annual/Baseline) Doug Arteaga MD [address] [place] [address] Referral ID Status Reason Start Date Expiration Date V isits Requested Visits Authorized [id number] Not Required - RTA 05/02/2023 05/01/2024 1 1 Specialty Diagnoses / Procedures Referred By Contac t Referred To Contact Diagnoses Screening for AAA (abdominal aortic aneurysm) Procedures Vascular AAA screening Doug Arteaga MD [address] [place] [phone] Referral ID Status Reason Start Date Expiration Date V isits Requested Visits Authorized [id number] Not Required - RTA 05/02/2023 05/01/2024 1 1 Specialty Diagnoses / Procedures Referred By Contac t Referred To Contact Diagnoses Leg edema, left Procedures Vascular duplex lower extremity venous left Doug Arteaga MD [address] [place] [address] [phone] Referral ID Status Reason Start Date Expiration Date V isits Requested Visits Authorized [id number] Not Required - RTA 03/21/2024 03/21/2025 1 [...] SEST. REST STRESS MULT Doug Arteaga MD [address] [place] [phone] Reason Comments Tachycardia states has fast hear t beat off and on -today it didnt go away as fast as normal Status Reason Specialty Diagnoses / Procedures Referre d By Contact Referred To Contact Closed EKG Diagnoses Palpitations Procedures Cardiac event monitor Demetrius Jimenez MD [address] [place] [address] [facility] [address] [place] [address] Reason Comments Tachycardia rapid heart rate papo [...] Cardiac event monitor [facility] Demetrius Jimenez MD [address] [place] [address] Reason Comments Medication Refill Specialty Diagnoses / Procedures Referred By Juma ya Referred To Contact Sleep Center Diagnoses Excessive daytime sleepiness Other sleep apnea Procedures Baseline Diagnostic Sleep Study Doug Arteaga MD [address] [place] [address] [facility] [address] [place] [address] Referral ID Status Reason Start Date Expiration Date V isits Requested Visits Authorized [id number] Not Required - RTA 06/28/2023 06/27/2024 1 1 Specialty Diagnoses / Procedures Referred By Juma ya Referred To Contact Radiology Diagnoses Personal history of tobacco use Procedures CT Lung Screen (Initial/Annual/Baseline) Doug Arteaga MD [address] [place] [phone] Referral ID Status Reason Start Date Expiration Date V isits Requested Visits Authorized [id number] Not Required - RTA 05/02/2023 05/01/2024 1 1 Specialty Diagnoses / Procedures Referred By Contac t Referred To Contact Diagnoses Screening for AAA (abdominal aortic aneurysm) Procedures Vascular AAA screening Doug Arteaga MD [address] [place] [address] Referral ID Status Reason Start Date Expiration Date V isits Requested Visits Authorized [id number] Not Required - RTA 05/02/2023 05/01/2024 1 1 Specialty Diagnoses / Procedures Referred By Contac t Referred To Contact Diagnoses Leg edema, left Procedures Vascular duplex lower extremity venous left Doug Arteaga MD [address] [place] [address] 39078 Referral ID Status Reason Start Date Expiration Date V isits Requested Visits Authorized [id number] Not Required - RTA 03/21/2024 03/21/2025 1 1 Reason Comments Follow-up N[facility]care Reason Comments Foot Callouses Left foot callous f/ u Reason Comments Foot Callouses Care Team (unrecognized sect ion and content) 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 Relationship Specialty Start Date End Date Doug Arteaga MD PCP - General Family Medicine 04/30/16 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 Relationship Specialty Start Date End Date Doug Arteaga MD PCP - General Family Medicine 04/30/16 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 Relationship Specialty Start Date End Date Doug Arteaga MD [address] [place] [phone] PCP - General Family Medicine 06/09/17 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 Relationship Specialty Start Date End Date Doug Arteaga MD [address] [place] [address] [phone] PCP - General Family Medicine 06/09/17 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 Relationship Specialty Start Date End Date Doug Arteaga MD [address] [place] [address] PCP - General Family Medicine 06/09/17 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 Relationship Specialty Start Date End Date Doug Arteaga MD [address] [id number] PCP - General Family Medicine 06/09/17 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 Relationship Specialty Start Date End Date Doug Arteaga MD [address] [id number] PCP - General Family Medicine 06/09/17 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 Relationship Specialty Start Date End Date Doug Arteaga MD [address] [id number] PCP - General Family Medicine 09/30/23 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 Relationship Specialty Start Date End Date Doug Arteaga MD [address] [id number] PCP - General Family Medicine 09/30/23 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 Relationship Specialty Start Date End Date Doug Arteaga MD [address] [id number] PCP - General Family Medicine 09/30/23 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 Relationship Specialty Start Date End Date Doug Arteaga MD [address] [id number] PCP - General Family Medicine 09/30/23 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 Relationship Specialty Start Date End Date Doug Arteaga MD [address] [id number] PCP - General Family Medicine 09/30/23 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 Relationship Specialty Start Date End Date Doug Arteaga MD [address] [place] [address] [id number] PCP - General Family Medicine 06/09/17 (unrecognized [...] and content) DATE CREATED AUTHOR 10/12/2022 [facility] DATE CREATED AUTHOR AUTHOR'S ORGANIZ ATION 05/18/2024 [facility] DATE CREATED AUTHOR AUTHOR'S ORGANIZ ATION 05/19/2024 [facility] DATE CREATED AUTHOR AUTHOR'S ORGANIZ ATION 06/09/2024 [facility] DATE CREATED AUTHOR AUTHOR'S ORGANIZ ATION 11/06/2024 [facility] DATE CREATED AUTHOR AUTHOR'S ORGANIZ ATION 11/14/2024 [facility] Chito matthieu FOR RECORDS PERTAINING TO PATIENTS WHO ARE [...] BE BASED ON THE PRIMARY CLINICAL RECORDS. [employer] [facility]. provides no warranty or guarantee of the accuracy or completeness of information in this document.
== END 2025-01-23 14:05 | disposition home or self-care (01) ==
LOC: RAD 14:05
PROVIDERS: PCP Family Medicine; Visit Provider Family Medicine
DX: M54.50 Low back pain, unspecified (principal); M51.369 Other intervertebral disc degeneration, lumbar region without mention of lumbar back pain or lower extremity pain
CPT/HCPCS: 72110

== ENCOUNTER 2025-01-29 10:39 | Emergency (ER) | payer MEDICARE, OTHER, SELFPAY ==
[2025-01-29 10:42] VITALS: BP 135/73; PULSE 70; O2SAT 96; BMI 37.1
[2025-01-29 10:49] VITALS: TEMP 36.8
--- NOTE | 2025-01-29 12:29 | ED_ITS ---
HPI HPI - General Adult General Chief complaint: Skin/Abscess/Foreign Body Stated complaint: ABCESS L FOOT Time Seen by Provider: 01/29/25 10:41 Source: patient Mode of arrival: Wheelchair History of Present Illness HPI narrative: Patient is a 69-year-old male, history significant for diabetes and lymphedema, presenting to the emergency department for a blister that popped on his left inner calf. Patient states he had a blister a few days ago when he bumped his leg into a truck. He states that the blister just popped, and wanted to get checked out. He states it is a little bit red, but not significantly painful. Denies any pus or drainage from the area. Denies any fevers or chills. No chest pain or shortness breath. No abdominal pain, nausea, or vomiting. He states he is currently on Keflex, with a few days left to go, for a different wound on another part of his leg. Related Data Home Medications ?Medication ?Instructions ?Recorded ?Confirmed atorvastatin 40 mg tablet 40 mg PO DAILY 05/20/2407/24 dexamethasone 0.5 mg tablet 0.5 mg PO DAILY 05/20/24 0 01/29/25 diltiazem HCl 120 mg 120 mg PO DAILY 05/20/2407/24 capsule,extended release 24 hr lansoprazole 30 mg capsule,delayed 30 mg PO BID 01/29/25 release (Prevacid) metoprolol tartrate 25 mg tablet 25 mg PO BID 05/20/24 01/29/25 cephalexin 500 mg capsule 500 mg PO BID 01/29/2501/29 mupirocin 2 % topical ointment 1 applic topical TID 01/29/25 Allergies Allergy/AdvReac Type Severity Reaction Status Date / Time No Known Drug Allergies Allergy Verified 09/21/24 20:55 Opioid HPI Opioid Management Most Recent Opioid Data: Last Pain Scale 5 05/24/24, 08:32 Last ORT Total Score 0 05/20/24, 19:55 Last ORT Risk Category Low Risk 05/20/24, 19:55 Review of Systems ROS Status of ROS 10 or more systems reviewed and unremark able except as noted in history and below [facility] Medical History (Updated 01/29/25 @ 10:59 by Oni M [place], DO) Cellulitis ?L03.90 - Cellulitis, unspecified (ICD-10) 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 - Immunodeficiency due to drugs (ICD-10) ?T38.0X5A - Adverse effect of glucocorticoids and synthetic analogues, initial encounter (ICD-10) ?Z79.52 - intermediate manager (current) use of systemic steroids (ICD-10) Morbid obesity ?E66.01 - Morbid (severe) obesity due to excess calories (ICD-10) Lymphedema ?I89.0 - Lymphedema, not elsewhere classified (ICD-10) Congenital adrenal hyperplasia ?E25.0 - 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 (ICD-10) Decreased ambulation status ?Z74.09 - Other reduced mobility (ICD-10) Arthritis of hand ?M19.049 - Primary osteoarthritis, unspecified hand (ICD-10) HLD (hyperlipidemia) ?E78.5 - Hyperlipidemia, unspecified (ICD-10) Sleep apnea ?G47.30 - Sleep apnea, unspecified (ICD-10) Supraventricular tachycardia ?I47.10 - Supraventricular tachycardia, unspecified (ICD-10) High cholesterol ?E78.00 - Pure hypercholesterolemia, unspecified (ICD-10) Acquired lymphedema of leg ?I89.0 - Lymphedema, not elsewhere classified (ICD-10) Family History (Updated 05/20/24 @ 20:03 by Marisol Zimmerman) Father Family history of cancer Family history of hypertension Mother Family history of hypertension Sister Family history of myocardial infarction Social History (Updated 05/20/24 @ 20:04 by Marisol Zimmerman) Within the past year, how often did you have a drink containing alcohol: never Score interpretation: A score less than 4 is consistent with normal alcohol consumption. Smoking status: Current every day smoker Non-prescribed substance use: denies use Previous occupational history: retired Highest level of school completed/degree received: high school graduate Are you now , , , , never or living with a partner: In a typical week, how many times do you talk on the telephone with family, friends, or neighbors: 3 or more times per week How often do you get together with friends or relatives: 3 or more times per week How often do you attend zoroastrianism or shinto services: never Little interest or pleasure in doing things: not at all Feeling down, depressed, or hopeless: not at all Feel stressed/tense/nervous/anxious/difficulty sleeping: not at all Do you think of yourself as: straight/heterosexual Gender Identity: male Exam Narrative Exam Narrative: CONSTITUTIONAL: Well-appearing, answering questions and following commands appropriately SKIN: Was warm and dry. EYES: Sclerae white. EARS, NOSE, THROAT: Moist oral mucosa. RESPIRATORY: Nonlabored respirations CARDIOVASCULAR: 2+ DP pulses bilaterally GASTROINTESTINAL: Abdomen is nondistended. MUSCULOSKELETAL: There is an annular area of erythema with sloughed skin approximately 3 cm in diameter, consistent with a deroofed blister. There are no cellulitic changes such as induration, tenderness to palpation, fluctuance, or drainage. NEUROLOGIC: Patient is awake and alert. Facies were symmetrical. Constitutional Vital Signs, click to edit/add: Last Vital Signs Temp 98.2 F 01/29/25 10:49 Pulse 70 01/29/25 10:42 Resp 20 01/29/25 10:42 BP 135/73 01/29/25 10:42 Pulse Ox 96 01/29/25 10:42 O2 Del Method Room Air 01/29/25 10:42 Course Vital Signs Vital signs: Vital Signs Pulse Rate 70 01/29/25 10:42 Respiratory Rate 20 01/29/25 10:42 Blood Pressure 135/73 01/29/25 10:42 Pulse Oximetry 96 01/29/25 10:42 Oxygen Delivery Method Room Air 01/29/25 10:42 Temperature 98.2 F 01/29/25 10:49 Pulse Rate 70 01/29/25 10:42 Respiratory Rate 20 01/29/25 10:42 Blood Pressure 135/73 01/29/25 10:42 Pulse Oximetry 96 01/29/25 10:42 Oxygen Delivery Method Room Air 01/29/25 10:42 Medical Decision Making MDM Narrative Medical decision making narrative: Patient is a 69-year-old male presenting to the emergency department for evaluat ion of left lower extremity blister/wound. Vital signs arrival are within normal limits. He is afebrile and hemodynamically stable. Examination as noted above. Clinically, the patient's presentation is consistent with a deroofed blister. There are no cellulitic or infectious changes to the area. He is actually already on Keflex for a different wound on the leg. I do not believe any further antibiotic treatment is necessary. He was given local wound care instructions. He was instructed to follow-up with his PCP, and actually has an appointment scheduled for tomorrow. Return precautions were given including any new or concerning symptoms. Patient understands and agrees with plan. FINAL IMPRESSION: #Acute encounter for wound check #Acute blister DISPOSITION: Discharged home CONDITION: Good Discharge Plan Discharge Chief Complaint: Skin/Abscess/Foreign Body Clinical Impression: Blister Patient Disposition: Home, Self-Care Time of Disposition Decision: 10:59 Condition: Good Mode of Transportation: Private Vehicle Prescriptions / Home Meds: No Action diltiazem HCl 120 mg capsule,extended release 24hr 120 mg PO DAILY dexamethasone 0.5 mg tablet 0.5 mg PO DAILY metoprolol tartrate 25 mg tablet 25 mg PO BID atorvastatin 40 mg tablet 40 mg PO DAILY lansoprazole [Prevacid] 30 mg capsule,delayed release(DR/EC) 30 mg PO BID cephalexin 500 mg capsule 500 mg PO BID Patient Comments: for 7 days, started on 01/24/25 mupirocin 2 % ointment 1 applic TOPICAL TID Print Language: Italian Instructions: Abrasion (ED), Blister (ED) Additional Instructions: Follow up with your family DR as planned Referrals: Christina Arteaga MD [Primary Care Provider] - 1 week Discharge Date/Time: 01/29/25 11:09
== END 2025-01-29 11:09 | disposition home or self-care (01) ==
PROVIDERS: Emergency Provider Student in an Organized Health Care Education/Training Program; PCP Family Medicine
DX: S80.822A Blister (nonthermal), left lower leg, initial encounter (principal); E11.9 Type 2 diabetes mellitus without complications; I89.0 Lymphedema, not elsewhere classified; F17.200 Nicotine dependence, unspecified, uncomplicated; W22.8XXA Striking against or struck by other objects, initial encounter
CPT/HCPCS: 99281